=== PATIENT | female | born 1935 | race Caucasian/White ===

== ENCOUNTER 2016-07-12 09:11 | Day surgery (SDC) | payer MEDICARE ==
[2016-07-02 12:28] VITALS: BMI 28.3
[~2016-07-12 09:11] MED LIST: ALPRAZolam 0.25 MG TAB PO PRN; ASPIRIN 325 MG TAB PO ONE; SODIUM CHLORIDE 0.9% 1,000 ML in EMPTY BAG 1 BAG IV ONE
[2016-07-12 10:09] LABS: Glucose,Whole Blood 108 mg/dL (75-99)
[2016-07-12 10:10] VITALS: RESP 18
[2016-07-12] MEDS ORDERED: MIDAZOLAM 2 MG/2 ML VIAL IV ONE (11:00)
[2016-07-12] MEDS ORDERED: LIDOCAINE 2% INJ 20 MG/ML SQ ONE (11:04)
[2016-07-12] MEDS ORDERED: HEPARIN SODIUM 1,000 UNIT/ML VIAL IV ONE (11:06)
[2016-07-12] MEDS: VERAPAMIL SYRINGE (5 MG/10 ML) INTRAARTER ONE ×2 (11:06→11:38)
[2016-07-12] MEDS ORDERED: IODIXANOL 320 MG/ML 100 ML INTRAARTER ONE (11:38)
[2016-07-12] MEDS ORDERED: RX INFO: IV CONTRAST WAS GIVEN 1 EACH MISC MISCELLANE PRN (11:46)
[2016-07-12] MEDS ORDERED: SODIUM CHLORIDE 0.9% 1,000 ML IV SCH ×2 (12:00→13:53)
--- NOTE | 2016-07-12 14:49 | IR ---
EXAMINATION TYPE: IR angio abdominal w runoff DATE OF EXAM: 07/12/2016 12:02 PM COMPARISON: NONE HISTORY: Pain in legs Fluoroscopy support supplied to the referring clinician. See dictated report from cardiology, 8.3 mi brian fluoroscopy time, 549 intraoperative C-arm images
[2016-07-12 17:15] VITALS: BP 149/71; PULSE 70; TEMP 97.4
--- NOTE | 2016-07-12 21:23 | PCN ---
DATE OF PROCEDURE: 07/12/2015 Performing physician: Rick Zepeda lending advisor. PROCEDURE PERFORMED: 1. Abdominal aortogram. 2. Bilateral lower extremity runoff. INDICATION: This is a pleasant 81-year-old female patient who was known to have severe PAD with prior aortobifem surgery who was experiencing severe bilateral lower extremity discomfort consistent with intermittent claudication. Approach: Right radial artery. COMPLICATIONS: None. Level of sedation: Moderate. PROCEDURE DESCRIPTION: After obtaining informed consent, the patient was brought to the cardiac outside laborer. Right radial artery was cannulated using micropuncture technique. The micropuncture wire passed easily, then I placed 6 [place] sheath in the right radial artery. Subsequently I gave the patient 2 mg of verapamil IA and 3000 units of heparin IV. Then I did an abdominal aortogram and bilateral lower extremity runoff using 5 [place] pigtail catheter which was initially placed at the level of the renal arteries and then it was advanced above the bifurcation of the aorta into right and left common iliac arteries. The procedure was completed without any complication. SELECTIVE PERIPHERAL ANGIOGRAM: 1. The abdominal aorta is calcified with mild disease only. 2. Iliac system: There is what seems to be aortobifem bypass, which seems to be patent. 3. The femoral artery: The right and left common femoral artery seems to be angiographically normal. 4. SFA: The right SFA is heavy calcified with multiple area of critical disease. The left SFA is occluded from the ostium and reconstitutes by the popliteal. 5. Popliteal: The right popliteal has a critical lesion and the left popliteal appeared to have severe disease as well. 6. Below the knee: There are 2 vessel runoff below the knee on right side with anterior tibial and peroneal and 3 vessel runoff on the left side. POSTPROCEDURE MANAGEMENT: 1. I would maximize medical treatment at this point of time. 2. Follow up with the patient.
--- NOTE | 2016-07-12 21:46 | CC ---
DATE OF SERVICE: 07/12/2016 PERFORMING PHYSICIAN: Rick Zepeda M.D., medical nurse. PROCEDURE PERFORMED: Selective right and left coronary angiogram. INDICATION: This is a pleasant 81-year-old female patient who is known to have diabetes, hypertension, dyslipidemia and PAD with prior aortobifem. She was experiencing chest discomfort and underwent a stress test which showed anterior ischemia. She was brought in today to undergo a heart catheterization. APPROACH: Right radial artery. COMPLICATIONS: None. LEVEL OF SEDATION: Moderate. PROCEDURE DESCRIPTION: After obtaining informed consent, the patient was brought to the cardiac pit laborer. Right radial artery was cannulated using micropuncture technique. The micropuncture wire passed easily. Then I placed a 6 [place] sheath in the right radial artery. Subsequently I did selective right and left coronary angiogram using JR4 and JL3.5 catheters. The procedure was completed without any complication. SELECTIVE CORONARY ANGIOGRAM: 1. Right coronary artery is a large-caliber vessel. It is a dominant vessel. The proximal RCA appeared to have mild disease only. The mid RCA has intermediate disease in the range of 50%. The RCA distally appeared to be angiographically normal and bifurcates into PDA and PLV branches. The PDA branch has proximal disease in the range of 70% and the PLV branch appeared to be angiographically normal. 2. The left main is a large-caliber vessel ( ) calcified, with mild disease distally that appeared to be in the range of 20% to 30%. It bifurcates into the left circumflex and left anterior descending artery. 3. The left circumflex is a large-caliber vessel. It is a non-dominant vessel. The proximal left circumflex appeared to be tortuous with mild disease only. The mid left circumflex appeared to have severe disease in the range of 70% to 80%. This is by the bifurcation of the first OM branch, which is a large-caliber vessel with mild disease only. The left circumflex in the very distal portion appeared to be angiographically normal. 4. Left anterior descending artery. The proximal LAD just distal to the bifurcation of the first diagonal branch appeared to have a lesion in the range of 70%. The first diagonal branch appeared to be tortuous with intermediate disease in the proximal portion. The mid LAD and distal LAD appeared to be calcified with mild disease only. CONCLUSION: 1. Heavily calcified right and left coronary system. 2. Severe disease involving the PDA branch of the RCA. 3. Severe disease involving the non-dominant left circumflex in the mid portion. 4. Severe disease involving the proximal left anterior descending artery. PLAN: In view of the ischemic stress test in the anterior wall, I recommend proceeding with PCI of the LAD associated with atherectomy of the LAD as well.
== END 2016-07-12 17:50 | disposition home or self-care (01) ==
LOC: CATHCVL 09:11
PROVIDERS: ATTEND Internal Medicine Interventional Cardiology
DX: I73.9 Peripheral vascular disease, unspecified (principal); I70.0 Atherosclerosis of aorta; I70.211 Atherosclerosis of native arteries of extremities with intermittent claudication, right leg; I77.9 Disorder of arteries and arterioles, unspecified; I10 Essential (primary) hypertension; E78.5 Hyperlipidemia, unspecified; J44.9 Chronic obstructive pulmonary disease, unspecified; E11.9 Type 2 diabetes mellitus without complications; I25.110 Atherosclerotic heart disease of native coronary artery with unstable angina pectoris; E78.00 Pure hypercholesterolemia, unspecified; Z79.82 Long term (current) use of aspirin; Z79.4 Long term (current) use of insulin; Z79.899 Other long term (current) drug therapy; Z91.040 Latex allergy status; Z88.0 Allergy status to penicillin; Z91.048 Other nonmedicinal substance allergy status; Z87.891 Personal history of nicotine dependence
CPT/HCPCS: 93454; 75625; 75716; C1769 ×3; J2001; J2250; Q9967; J1644

== ENCOUNTER 2018-05-16 11:32 | Inpatient (IN) | payer MEDICARE ==
[2018-05-16] MEDS ORDERED: LORazepam 2 MG/ML INJ IV STA ×2 (12:01→16:10)
[2018-05-16] MEDS ORDERED: hydrALAZINE HCL 20 MG/ML 1 ML VIAL IVP STA (12:02)
[2018-05-16] MEDS ORDERED: ENALAPRILAT 1.25 MG/ML 1 ML VIAL IVP STA (12:02)
--- NOTE | 2018-05-16 12:06 | ED ---
General Adult HPI - General Stated complaint: High BP Time Seen by Provider: 05/16/18 11:40 Source: RN notes reviewed - History of Present Illness Initial comments: This is an 83-year-old female who presents emergency department after having gone to Dr. Olivia's office. Patient was at Dr. Olivia office and was noted to have high blood pressure so they sent her in the emergency department. Patient states over the last few days she has not been feeling well and she has generalized diffuse pain everywhere. states she has rheumatoid arthritis and she often is in a lot of pain. Patient denies any new specific pain today. Patient denies any chest pain difficulty breathing shortness of breath per patient denies any headache patient denies numbness weakness. Patient denies any recent fever chills or cough. Patient denies any calf pain or leg swelling. Patient denies any abdominal pain patient denies nausea vomiting diarrhea. Patient's states the patient keeps saying she thinks she's going to . Patient denies any recent injury or trauma. - Related Data Home Medications Medication Instructions Recorded Confirmed Aspirin [Adult Low Dose Aspirin EC] 81 mg PO DAILY 07/02/16 05/16/18 Cholecalciferol [Vitamin D3] 2,000 unit PO DAILY 07/02/16 05/16/18 DULoxetine HCL [Cymbalta] 60 mg PO DAILY 07/02/16 05/16/18 Ferrous Sulfate [Iron (65 MG 325 mg PO DAILY 07/02/16 05/16/18 Elemental)] INSULIN LISPRO (humaLOG) [humaLOG] See Protocol SQ DIRECTED 07/02/16 05/16/18 Insulin Detemir [Levemir] 30 unit SQ HS 07/02/16 05/16/18 Levothyroxine Sodium [Synthroid] 150 mcg PO DAILY 07/02/16 05/16/18 Metoprolol Tartrate [Lopressor] 50 mg PO BID 07/02/16 05/16/18 Omeprazole 20 mg PO DAILY 07/02/16 05/16/18 Pregabalin [Lyrica] 75 mg PO DAILY 07/02/16 05/16/18 Atorvastatin [Lipitor] 20 mg PO DAILY 03/17/18 05/16/18 Cyanocobalamin (Vitamin B-12) 1,000 mcg PO DAILY 05/16/18 05/16/18 [Vitamin B-12] Etanercept [Enbrel] 50 mg SQ Q7DAYS 05/16/18 05/16/18 FLUoxetine HCL [PROzac] 10 mg PO DAILY 05/16/18 05/16/18 FLUoxetine HCL [PROzac] 20 mg PO DAILY 05/16/18 05/16/18 Fluticasone Nasal [place] [Flonase 2 spr EA NOSTRIL DAILY 05/16/18 05/16/18 Nasal [place]] Furosemide [Lasix] 20 mg PO DAILY 05/16/18 05/16/18 Isosorbide Mononitrate ER [Imdur] 30 mg PO DAILY 05/16/18 05/16/18 Lisinopril [Zestril] 10 mg PO DAILY 05/16/18 05/16/18 Tadalafil [Cialis] 10 mg PO DAILY 05/16/18 05/16/18 amLODIPine [Norvasc] 5 mg PO BID 05/16/18 05/16/18 cycloSPORINE [Restasis] 1 drop BOTH EYES HS 05/16/18 05/16/18 hydrALAZINE HCL [Apresoline] 50 mg PO DAILY 05/16/18 05/16/18 rOPINIRole HCL [Requip] 0.25 mg PO DAILY 05/16/18 05/16/18 Allergies Allergy/AdvReac Type Severity Reaction Status Date / Time adhesive tape Allergy Rash/Hives Verified 05/16/18 12:25 Penicillins Allergy Swelling Verified 05/16/18 12:25 Review of Systems ROS Statement: Those systems with pertinent positive or pertinent negative responses have been documented in the HPI. ROS Other: All systems not noted in ROS Statement are negative. Past Medical History Past Medical History: Cancer, Diabetes Mellitus, GERD/Reflux, Hyperlipidemia, Hypertension, Memory Impairment, Rheumatoid Arthritis (RA), Thyroid Disorder Additional Past Medical History / Comment(s): States age related memory impairment. 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 Hx right breast cancer, aortic aneurysm. History of Any Multi-Drug Resistant Organisms: None Reported Past Surgical History: Appendectomy, Back Surgery, Breast Surgery, Tubal Ligation Additional Past Surgical History / Comment(s): Surgery for arortic aneurysm, surgery on toes of bilateral feet, ablation done on back X2, had uvula removed. Past Anesthesia/Blood Transfusion Reactions: No Reported Reaction Smoking Status: Former smoker - Past Family History Sister(s) Family Medical History: Cancer Additional Family Medical History / Comment(s): Aneurysm. States 3 of her sisters had cancer. Father Additional Family Medical History / Comment(s): Anerysym Mother Additional Family Medical History / Comment(s): Aneurysm Brother(s) Additional Family Medical History / Comment(s): Aneurysm General Exam - General Exam Comments Initial Comments: GENERAL: Patient is well-developed and well-nourished. Patient is nontoxic and well- hydrated and is in mild distress. ENT: Neck is soft and supple. No significant lymphadenopathy is noted. Oropharynx is clear. Moist mucous membranes. Neck has full range of motion without eliciting any pain. EYES: The sclera were anicteric and conjunctiva were pink and moist. Extraocular movements were intact and pupils were equal round and reactive to light. Eyelids were unremarkable. PULMONARY: Unlabored respirations. Good breath sounds bilaterally. No audible rales rhonchi or wheezing was noted. CARDIOVASCULAR: There is a regular rate and rhythm without any murmurs gallops or rubs. ABDOMEN: Soft and nontender with normal bowel sounds. SKIN: Skin is clear with no lesions or rashes and otherwise unremarkable. NEUROLOGIC: Patient is alert and oriented x3. Cranial nerves II through XII are grossly intact. Motor and sensory are also intact. Normal speech, volume and content. Symmetrical smile. MUSCULOSKELETAL: Normal extremities with adequate strength and full range of motion. No lower extremity swelling or edema. No calf tenderness. LYMPHATICS: No significant lymphadenopathy is noted PSYCHIATRIC: Patient is very anxious Course Vital Signs 05/16/18 05/16/18 05/16/18 12:04 12:50 13:40 Temperature 98.2 F Pulse Rate 68 59 L 61 Respiratory 28 H 18 Rate Blood Pressure 209/91 207/84 144/60 O2 Sat by Pulse 99 99 Oximetry Medical Decision Making - Medical Decision Making EKG shows sinus bradycardia 59 bpm TN interval 250 QRS is 74 Q-T intervals 436 QTC is 431. Patient's EKG shows no ST segment elevation or depression or T wave abnormalities are noted. Patient had no complaints on arrival patient continues to have no complaints except that her blood pressure was elevated. I spoke with Dr. Olivia he was still concerned about the patient could she appear to have abdominal pain in his office even though she is pain-free at this time he wanted to keep her overnight and so I admitted her for 23 hour observation - Lab Data Result diagrams: 05/16/18 12:40 05/16/18 12:40 Lab Results 05/16/18 05/16/18 05/16/18 Range/Units 12:40 12:40 12:40 WBC 9.6 (3.8-10.6) k/uL RBC 4.72 (3.80-5.40) m/uL Hgb 14.3 (11.4-16.0) gm/dL Hct 43.9 (34.0-46.0) % MCV 93.0 (80.0-100.0) fL MCH 30.2 (25.0-35.0) pg MCHC 32.5 (31.0-37.0) g/dL RDW 15.7 H (11.5-15.5) % Plt Count 165 (150-450) k/uL Neutrophils % 68 % Lymphocytes % 22 % Monocytes % 5 % Eosinophils % 3 % Basophils % 1 % Neutrophils # 6.5 (1.3-7.7) k/uL Lymphocytes # 2.1 (1.0-4.8) k/uL Monocytes # 0.5 (0-1.0) k/uL Eosinophils # 0.3 (0-0.7) k/uL Basophils # 0.1 (0-0.2) k/uL PT (9.0-12.0) sec INR (<1.2) APTT (22.0-30.0) sec Sodium 140 (137-145) mmol/L Potassium 4.1 (3.5-5.1) mmol/L Chloride 101 (98-107) mmol/L Carbon Dioxide 31 H (22-30) mmol/L Anion Gap 8 mmol/L BUN 23 H (7-17) mg/dL Creatinine 1.02 (0.52-1.04) mg/dL Est GFR (CKD-EPI)AfAm 59 (>60 ml/min/1.73 sqM) Est GFR (CKD-EPI)NonAf 51 (>60 ml/min/1.73 sqM) Glucose 120 H (74-99) mg/dL Calcium 9.6 (8.4-10.2) mg/dL Magnesium 2.3 (1.6-2.3) mg/dL Total Bilirubin 1.1 (0.2-1.3) mg/dL AST 28 (14-36) U/L ALT 29 (9-52) U/L Alkaline Phosphatase 88 (38-126) U/L Total Creatine Kinase 38 (30-135) U/L CK-MB (CK-2) 1.1 (0.0-2.4) ng/mL CK-MB (CK-2) Rel Index 2.9 Troponin I <0.012 (0.000-0.034) ng/mL Total Protein 7.4 (6.3-8.2) g/dL Albumin 4.2 (3.5-5.0) g/dL 05/16/18 Range/Units 12:40 WBC (3.8-10.6) k/uL RBC (3.80-5.40) m/uL Hgb (11.4-16.0) gm/dL Hct (34.0-46.0) % MCV (80.0-100.0) fL MCH (25.0-35.0) pg MCHC (31.0-37.0) g/dL RDW (11.5-15.5) % Plt Count (150-450) k/uL Neutrophils % % Lymphocytes % % Monocytes % % Eosinophils % % Basophils % % Neutrophils # (1.3-7.7) k/uL Lymphocytes # (1.0-4.8) k/uL Monocytes # (0-1.0) k/uL Eosinophils # (0-0.7) k/uL Basophils # (0-0.2) k/uL PT 10.3 (9.0-12.0) sec INR 1.1 (<1.2) APTT 21.1 L (22.0-30.0) sec Sodium (137-145) mmol/L Potassium (3.5-5.1) mmol/L Chloride (98-107) mmol/L Carbon Dioxide (22-30) mmol/L Anion Gap mmol/L BUN (7-17) mg/dL Creatinine (0.52-1.04) mg/dL Est GFR (CKD-EPI)AfAm (>60 ml/min/1.73 sqM) Est GFR (CKD-EPI)NonAf (>60 ml/min/1.73 sqM) Glucose (74-99) mg/dL Calcium (8.4-10.2) mg/dL Magnesium (1.6-2.3) mg/dL Total Bilirubin (0.2-1.3) mg/dL AST (14-36) U/L ALT (9-52) U/L Alkaline Phosphatase (38-126) U/L Total Creatine Kinase (30-135) U/L CK-MB (CK-2) (0.0-2.4) ng/mL CK-MB (CK-2) Rel Index Troponin I (0.000-0.034) ng/mL Total Protein (6.3-8.2) g/dL Albumin (3.5-5.0) g/dL Disposition Clinical Impression: Hypertension Disposition: ADMITTED IP TO THIS [facility] Referrals: Sherwin Renee MD [STAFF PHYSICIAN] - 1-2 days Time of Disposition: 14:23
[2018-05-16 13:08] LABS: Basophils # (A) 0.1 k/uL (0-0.2); Basophils % (A) 1 %; Eosinophils # (A) 0.3 k/uL (0-0.7); Eosinophils % (A) 3 %; HCT 43.9 % (34.0-46.0); HGB 14.3 gm/dL (11.4-16.0); Lymphocytes # (A) 2.1 k/uL (1.0-4.8); Lymphocytes % (A) 22 %; MCH 30.2 pg (25.0-35.0); MCHC 32.5 g/dL (31.0-37.0); Mean Platelet Volume 7.1; Monocytes # (A) 0.5 k/uL (0-1.0); Monocytes % (A) 5 %; Neutrophils # (A) 6.5 k/uL (1.3-7.7); Neutrophils % (A) 68 %; Platelet Count 165 k/uL (150-450); RBC 4.72 m/uL (3.80-5.40); RDW 15.7 % (11.5-15.5); WBC 9.6 k/uL (3.8-10.6)
[2018-05-16 13:20] LABS: Albumin 4.2 g/dL (3.5-5.0); Calcium 9.6 mg/dL (8.4-10.2); Magnesium 2.3 mg/dL (1.6-2.3); Potassium 4.1 mmol/L (3.5-5.1); Total Bilirubin 1.1 mg/dL (0.2-1.3); Total Protein 7.4 g/dL (6.3-8.2)
[2018-05-16 13:26] LABS: Creatine Kinase 38 U/L (30-135)
[2018-05-16 13:32] LABS: INR 1.1 (<1.2); Partial Thromboplastin Time 21.1 sec (22.0-30.0); Prothrombin Time 10.3 sec (9.0-12.0)
--- NOTE | 2018-05-16 13:34 | XR ---
EXAMINATION TYPE: XR chest 2V DATE OF EXAM: 05/16/2018 COMPARISON: Prior chest x-ray 08/31/2013, 08/18/2016 HISTORY: Chest pain TECHNIQUE: Frontal and lateral views of the chest are obtained. FINDINGS: Patient is rotated and there are overlying cardiac leads. There is no focal air space opaci ty, pleural effusion, or pneumothorax seen. Linear increased density in the left midlung may represen t atelectasis or scar The cardiac silhouette size is stable. Postop changes noted in the abdomen, [place] gical clips overlie the right chest. The aorta is dense. There is a compression deformity noted at th e lower thoracic spine level which is likely present on prior exam. Bone mineralization is reduced. IMPRESSION: No acute cardiopulmonary process.
[2018-05-16 13:39] LABS: Creatine Kinase MB 1.1 ng/mL (0.0-2.4); Troponin I <0.012 ng/mL (0.000-0.034)
[2018-05-16] MEDS ORDERED: SODIUM CHLORIDE 0.9% 1,000 ML IV ONE (14:23)
[2018-05-16] MEDS ORDERED: NON-FORMULARY DRUG (Insulin Lispro (Humalog) 0 UNITS) SQ SCH (17:45)
--- NOTE | 2018-05-16 19:07 | CT ---
EXAMINATION TYPE: CT abdomen pelvis wo con DATE OF EXAM: 05/16/2018 COMPARISON: None HISTORY: Severe ABDOMINAL PAIN AND DISTENTION CT DLP: 449.1 mGycm Automated exposure control for dose reduction was used. TECHNIQUE: Helical acquisition of images was performed from the lung bases through the pelvis. FINDINGS: VISUALIZED LOWER CHEST: No definite acute findings. However, the proximal third of the stomach is int rathoracic in position. LIVER/GB: No significant abnormality is appreciated. PANCREAS: No significant abnormality is seen. SPLEEN: No significant abnormality is seen. ADRENALS: No significant abnormality is seen. KIDNEYS: No significant abnormality is seen. PERITONEAL CAVITY: No pneumoperitoneum or fluid. RETROPERITONEAL ADENOPATHY: None visualized REPRODUCTIVE ORGANS: No significant abnormality is seen URINARY BLADDER: Moderately distended, etiology unclear. PELVIC ADENOPATHY: None visualized. OSSEOUS STRUCTURES: No significant abnormality is seen. BOWEL: No significant abnormality is seen. OTHER: Prominent atherosclerotic calcification volume seen throughout the arterial anatomy, including the coronary arteries. No definite acute findings, as seen. IMPRESSION: NO ACUTE PROCESS. HOWEVER, MARKED ATHEROSCLEROTIC CHANGES AND MODERATE URINARY BLADDER DISTENTION NOTED.
[2018-05-16] MEDS ORDERED: INSULIN DETEMIR 100 UNIT/ML 10 ML VIAL SQ SCH (21:00)
--- NOTE | 2018-05-16 21:36 | P.HPIM ---
History of Present Illness H&P Date: 05/16/18 H&P dictated on phone#[phone] date : 05/16/18 DX :hypertensive crises syst. BP 207 in ER Past Medical History Past Medical History: Cancer, Diabetes Mellitus, GERD/Reflux, Hyperlipidemia, Hypertension, Memory Impairment, Rheumatoid Arthritis (RA), Thyroid Disorder Additional Past Medical History / Comment(s): States age related memory impairment. 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 Hx right breast cancer, aortic aneurysm. History of Any Multi-Drug Resistant Organisms: None Reported Past Surgical History: Appendectomy, Back Surgery, Breast Surgery, Tubal Ligation Additional Past Surgical History / Comment(s): Surgery for arortic aneurysm, surgery on toes of bilateral feet, ablation done on back X2, had uvula removed. Past Anesthesia/Blood Transfusion Reactions: No Reported Reaction Smoking Status: Former smoker - Past Family History Sister(s) Family Medical History: Cancer Additional Family Medical History / Comment(s): Aneurysm. States 3 of her sisters had cancer. Father Additional Family Medical History / Comment(s): Anerysym Mother Additional Family Medical History / Comment(s): Aneurysm Brother(s) Additional Family Medical History / Comment(s): Aneurysm Medications and Allergies Home Medications Medication Instructions Recorded Confirmed Type Aspirin [Adult Low Dose Aspirin EC] 81 mg PO DAILY 07/02/16 05/16/18 History Cholecalciferol [Vitamin D3] 2,000 unit PO DAILY 07/02/16 05/16/18 History DULoxetine HCL [Cymbalta] 60 mg PO DAILY 07/02/16 05/16/18 History Ferrous Sulfate [Iron (65 MG 325 mg PO DAILY 07/02/16 05/16/18 History Elemental)] INSULIN LISPRO (humaLOG) [humaLOG] See Protocol SQ DIRECTED 07/02/16 History Insulin Detemir [Levemir] 30 unit SQ HS 07/02/16 05/16/18 History Levothyroxine Sodium [Synthroid] 150 mcg PO DAILY 07/02/16 05/16/18 History Metoprolol Tartrate [Lopressor] 50 mg PO BID 07/02/16 05/16/18 History Omeprazole 20 mg PO DAILY 07/02/16 05/16/18 History Pregabalin [Lyrica] 75 mg PO DAILY 07/02/16 05/16/18 History Atorvastatin [Lipitor] 20 mg PO DAILY 03/17/18 05/16/18 History Cyanocobalamin (Vitamin B-12) 1,000 mcg PO DAILY 05/16/18 05/16/18 History [Vitamin B-12] Etanercept [Enbrel] 50 mg SQ Q7DAYS 05/16/18 05/16/18 History FLUoxetine HCL [PROzac] 10 mg PO DAILY 05/16/18 05/16/18 History FLUoxetine HCL [PROzac] 20 mg PO DAILY 05/16/18 05/16/18 History Fluticasone Nasal [place] [Flonase 2 spr EA NOSTRIL DAILY 05/16/18 05/16/18 History Nasal [place]] Furosemide [Lasix] 20 mg PO DAILY 05/16/18 05/16/18 History Isosorbide Mononitrate ER [Imdur] 30 mg PO DAILY 05/16/18 05/16/18 History Lisinopril [Zestril] 10 mg PO DAILY 05/16/18 05/16/18 History Tadalafil [Cialis] 10 mg PO DAILY 05/16/18 05/16/18 History amLODIPine [Norvasc] 5 mg PO BID 05/16/18 05/16/18 History cycloSPORINE [Restasis] 1 drop BOTH EYES HS 05/16/18 05/16/18 History hydrALAZINE HCL [Apresoline] 50 mg PO DAILY 05/16/18 05/16/18 History rOPINIRole HCL [Requip] 0.25 mg PO DAILY 05/16/18 05/16/18 History Allergies Allergy/AdvReac Type Severity Reaction Status Date / Time adhesive tape Allergy Rash/Hives Verified 05/16/18 12:25 Penicillins Allergy Swelling Verified 05/16/18 12:25 Physical Exam Vitals: Vital Signs Temp Pulse Resp BP Pulse Ox 05/16/18 19:00 64 20 164/61 99 05/16/18 18:00 63 18 138/48 100 05/16/18 17:00 73 18 177/66 100 05/16/18 16:00 69 18 141/65 100 05/16/18 15:30 68 18 141/65 100 05/16/18 15:00 70 18 147/60 100 05/16/18 14:08 67 18 165/63 100 05/16/18 13:40 61 18 144/60 99 05/16/18 12:50 59 L 207/84 05/16/18 12:04 98.2 F 68 28 H 209/91 99 Intake and Output 05/16/18 05/16/18 05/16/18 06:59 14:59 22:59 Other: Weight 61.235 kg Results CBC & Chem 7: 05/16/18 12:40 05/16/18 12:40 Labs: Abnormal Lab Results - Last 24 Hours (Table) 05/16/18 05/16/18 05/16/18 Range/Units 12:40 12:40 12:40 RDW 15.7 H (11.5-15.5) % APTT 21.1 L (22.0-30.0) sec Carbon Dioxide 31 H (22-30) mmol/L BUN 23 H (7-17) mg/dL Glucose 120 H (74-99) mg/dL
[2018-05-16] MEDS: amLODIPine 5 MG TAB PO SCH (22:13)
[2018-05-16] MEDS: cycloSPORINE 0.05% OPHTH 0.4 ML DROPERETTE BOTH EYES SCH (22:13)
[2018-05-16] MEDS: METOPROLOL TARTRATE 50 MG TAB PO SCH (22:22)
[2018-05-16 22:28] LABS: Glucose,Whole Blood 131 mg/dL (75-99)
--- NOTE | 2018-05-16 22:40 | HP ---
HISTORY AND PHYSICAL She is in room number 398 bed one on hold for the admission when bed is available. NEW DATA: She is a 4 foot 11 inches height and weight 61.235 kg. BSA 1.56 m2, BMI 27.3 kg/m2. ALLERGY IS ADHESIVE TAPE, PENICILLIN. The patient presented in the office first with the severe uncomfortable feeling mainly in the lower chest, abdominal area, and she has abdominal discomfort. Meanwhile she could not move and feeling that she has her blood pressure was increasing and subsequently found the blood pressure 180 and subsequently 188 and 209 systolic with the acute crisis and severe normal body aches and the patient transferred by ambulance with the acute hypertensive crisis to the emergency room at [facility]. I did speak, prior to the transfer with Dr. Le, the ER physician, and to take care of the patient until we find out the problem. The patient subsequently arrived to the emergency room and she was seen by Dr. Le and they found her blood pressure is high as well with the blood pressure 209 and 200 and we started her on medication IM IV as well as Ativan, and she was severely anxious. The patient has a long-standing history of rheumatoid arthritis and she had also long- standing history of coronary atherosclerosis and arteriosclerosis and she has history of severe peripheral vascular disease and as well as has abdominal biaorto bifem by the vascular surgeon in [facility]. The patient past history she has been within the last 2 days her stated that she could not sit still. She could not wake up and she was very sleepy and lethargic and could not see the reason and he brought her to the office and in the office, the patient was severely achy and could not move. She is laying flat and could not move her body or stand up or walk, and at that time, we called the ambulance from the office to be in the emergency room with need for further investigation and controlling the blood pressure with medication probably IV, which is not available in the office. The EMS tried to check her blood pressure was very high and unrecorded by them. Her current list of medication: She was on aspirin, cholecalciferol, vitamin D, and Duloxetine, Cymbalta, Ferrous sulfate, as well as levothyroxine, metoprolol tartrate, omeprazole, pregabalin, and atorvastatin, vitamin B12, as well as Enbrel 50 mg every 7 days. Fluoxetine 10 mg as well as which is Prozac as well as Prozac again 20 mg. And fluticasone spray nasal spray and Lasix 20 mg, isosorbide and Imdur mononitrate 30 mg once daily. Lisinopril 10 mg one daily, deal with the underlying severe pulmonary hypertension and that was 10 mg daily and amlodipine, Norvasc 5 mg b.i.d. and cyclosporine and then Restasis 1 drop each eye for dry eye associated with rheumatoid arthritis and she is also on hydralazine 50 mg once a day and Robinul 0.25 mg once a day. HER ALLERGY IS PENICILLIN AND ADHESIVE TAPE. She had past surgical history of bifem bypass by the vascular surgeon. She has also history of seeing Cardiology, Dr. Zepeda, as well as history of myocardial infarction. She had history of rheumatoid arthritis and osteoarthritis and she had history of diabetes mellitus, hypothyroidism, history of hypertension which has been controlled until this event and which was unexpected and she had neuropathy of the lower extremities as well. She has underlying depression and anxiety and she is on insulin for diabetes mellitus as well as mentioned above hypothyroidism. On reviewing of the system: Neuropsychiatry, she is lethargic. She could not really communicate or answer questions with the significant change of mental status and tired, fatigued. She has a history of depression and with the large amount of SSRI. No fever. No chills. Cardiovascular: No chest pain or palpitations and she had severe high blood pressure started probably 2 days ago, however, was not discovered until we saw her in the office and transferred her to the hospital. Gastrointestinal: She had abdominal pain and with the moderate pressure and palpation was significantly symptomatic and this was in 4 quadrants. On the : Questionable symptoms. Musculoskeletal: She could not even stand up or sit or move and she needs 2 people to tend to put her on the ambulance to carry her for the emergency room. Neuropsychiatry is no history of strokes. PAST MEDICAL HISTORY: She had history of hyperlipidemia and GERD disease as well as mentioned GERD disease, thyroid disorder. She had a right breast cancer and was removed with lumpectomy and radiation therapy in the past. Had history of also surgical history appendectomy, back surgery, breast surgery, tubal ligation, and history of aortic aneurysm surgery and surgery on the toes and bilateral on the feet and she had 6 ablation done on her back x2. She had also a history of removal of the uvula secondary to obstructive lung disease. FAMILY HISTORY: She has an aneurysm and she has 3 sisters who have cancer. PHYSICAL EXAMINATION: On examination, the patient is well developed, She has generalized weakness. He appears lethargic to me as well as having generalized discomfort and pain and her vital signs is indicating that she had when she arrived to the emergency room, she was 207/84 with the mean 125, and subsequently with the medication given, she started to improve and fluctuating with 165/63 and 147 subsequently. However, during the evening hours, her blood pressure picked up again and 177/66 and that associated also with movement. On the pulse rate was 64, respiratory rate was 18 to 20, and the pulse ox was normal. In the emergency room, she had a chest x-ray and the chest x-ray was indicating that there is linear increased density in the left mid lung may represent atelectasis or scar and otherwise the compression deformity noted in the lower thoracic spine level and no acute pulmonary process. Her EKG was indicating that she had sinus rhythm with the left atrial enlargement, left anterior hypertrophy. She has as well was seen in the emergency room, evaluated and found that she has abdominal pain and started the lower chest and extended to the whole abdomen and with the abdominal pain with the underlying history abdominal aneurysm. CT scan without contrast was ordered and the report of the CT scan was indicating that proximal stomach in the intrathoracic with the severe herniation of the stomach. The gallbladder, the liver and gallbladder is no significant abnormalities. Pancreas was no significant abnormalities. The no significant abnormalities seen. Adrenals no significant abnormality. Kidneys no significant abnormality seen. Intraperitoneal cavity, no pneumonia, no with pneumoperitoneum or fluid and grade 2 retroperitoneal adenopathy, none visualized and the reproductive organs no significant abnormalities seen. The urinary bladder is moderately distended and the etiology was unclear by the CT scan and the bowel no significant abnormality of the osseous structure. No significant abnormality and pelvic adenopathy not visualized and the conclusion the said that prominent atherosclerotic calcification volume seen through out the arterial anatomy including the coronary arteries. No definite acute finding as seen. In the impression they said "no acute process". However, she said the said market atherosclerotic changes and moderate bladder moderate urinary bladder distention noted. Subsequently, we ordered a bladder scan to see if the distention of the bladder causing the pressure and associated with increased blood pressure. On examination at the time patient seen, evaluated in model #8 in the ER at [facility] cleared him for the [facility]. Patient seen earlier by Dr. Le who talked to me at the time. Her HEENT the head was normocephalic, atraumatic. Pupils equal, reactive. Conjunctivae was pink. Sclerae was nonicteric. However, she had edema of the eyeball and the eye lid. It is unclear if he has been given fluid, extensive fluid or not, but at this time we cut her fluid down to 20 mL an hour. The neck was supple. No JVD. No thyromegaly. No lymphadenopathy and trachea midline. The chest was clear to auscultation and percussion and no wheezes, no rhonchi. The heart was regular sinus rhythm. The PMI in the 5th outside midclavicular line with normal S1, S2. She had history of right breast lumpectomy with radiation therapy many years ago and her abdomen and ribs is tender bilaterally and as well as the abdomen in the 4 quadrants and no rebound. Positive bowel sounds. The extremities and she had chronic stasis dermatitis with brownish of discoloration and the edema was not present. Pulses was intact bilaterally. Neurological examination: The patient is lethargic and unable to give history. Her at bedside. Mr. Collazo and he is able to help with the history. Assessment: History of depression, but never had these symptoms before. IMPRESSION: 1. Acute hypertensive crisis and transferred from the office to the emergency room and subsequently blood pressure under control with IV medications. 2. Underlying the lethargy with the possibility of the associated with the multiple SSRI and she had no fever. 3. Underlying urinary tract infection and stability and urinary bladder retention. 4. Underlying exacerbation of the rheumatoid arthritis with generalized ache and pain. 5. Hypothyroidism. 6. Severe atherosclerotic disease of the coronary vessels and generalized. She had status post history of aortic aneurysm and bifem and which was operated upon and still had peripheral vascular disease in the left lower extremities with the decreased pulses in comparison with the right lower extremity. The patient currently will be admitted for observation and management as well as starting the bladder scan and to see if she had retention of the urine associated with her current symptoms. 7. See and observe the patient as well as continue her current medication and watch for the fever. Medication reconciliation done and the patient adjusted her and I did adjust her medication and some of the medication was withheld and I did discuss it with her with her in the skilled nursing at this time. 8. History of underlying compression fracture of the lower thoracic by the x-ray of the lower thoracic spine compression fracture or deformity off the aide is undetermined at this time. MMODL / IJN: [id number] /
[2018-05-17 05:55] LABS: Glucose,Whole Blood 75 mg/dL (75-99)
[2018-05-17] MEDS: LEVOTHYROXINE 75 MCG TAB PO SCH (05:59)
[2018-05-17] MEDS: PANTOPRAZOLE 40 MG TABLET PO SCH (05:59)
[2018-05-17] MEDS: SODIUM CHLORIDE 0.9% 1,000 ML IV SCH ×2 (05:59→14:59)
[2018-05-17 06:58] LABS: Basophils # (A) 0.1 k/uL (0-0.2); Basophils % (A) 1 %; Eosinophils # (A) 0.2 k/uL (0-0.7); Eosinophils % (A) 3 %; HGB 11.5 gm/dL (11.4-16.0); Lymphocytes # (A) 2.2 k/uL (1.0-4.8); Lymphocytes % (A) 26 %; Mean Platelet Volume 7.5; Monocytes # (A) 0.4 k/uL (0-1.0); Monocytes % (A) 5 %; Neutrophils # (A) 5.4 k/uL (1.3-7.7); Neutrophils % (A) 64 %; Platelet Count 146 k/uL (150-450); RBC 3.72 m/uL (3.80-5.40); RDW 15.7 % (11.5-15.5); WBC 8.3 k/uL (3.8-10.6)
[2018-05-17 07:15] LABS: Calcium 8.9 mg/dL (8.4-10.2); Magnesium 2.4 mg/dL (1.6-2.3)
[2018-05-17] MEDS: ASPIRIN 81 MG PO SCH (08:16)
[2018-05-17] MEDS: ISOSORBIDE MONONITRATE ER 30 MG TAB.ER.24H PO SCH (08:16)
[2018-05-17] MEDS: FUROSEMIDE 20 MG TAB PO SCH (08:16)
[2018-05-17] MEDS: amLODIPine 5 MG TAB PO SCH (08:17)
[2018-05-17] MEDS: hydrALAZINE HCL 50 MG TAB PO SCH (08:17)
[2018-05-17] MEDS: ATORVASTATIN 20 MG TAB PO SCH (08:17)
[2018-05-17] MEDS: CYANOCOBALAMIN 500 MCG TAB PO SCH (08:18)
[2018-05-17] MEDS: CHOLECALCIFEROL 1,000 UNIT TAB PO SCH (08:18)
[2018-05-17] MEDS: DULoxetine HCL 60 MG CAPSULE.DR PO SCH (08:18)
[2018-05-17] MEDS: FERROUS SULFATE 325 MG TAB PO SCH (08:18)
[2018-05-17] MEDS: METOPROLOL TARTRATE 50 MG TAB PO SCH ×2 (08:19→20:30)
[2018-05-17] MEDS: CIALIS 10 MG PO SCH (08:19)
[2018-05-17] MEDS: LISINOPRIL 10 MG TAB PO SCH (08:19)
[2018-05-17 10:06] LABS: Glucose,Whole Blood 110 mg/dL (75-99)
[2018-05-17 11:15] LABS: Glucose,Whole Blood 145 mg/dL (75-99)
[2018-05-17 11:38] LABS: Appearance,Urine Cloudy (Clear); Bacteria,Urine Occasional /hpf; Bilirubin,Urine Negative (Negative); Blood,Urine Negative (Negative); Color,Urine Yellow; Glucose,Urine (UA) Negative (Negative); Granular Casts,Urine 7 /lpf (0); Hyaline Casts,Urine 78 /lpf (0-2); Ketones,Urine Negative (Negative); Leukocyte Esterase,Urine Large (Negative); Mucus,Urine Few /hpf; Nitrite,Urine Negative (Negative); PH, Urine 5.5 (5.0-8.0); Protein,Urine Trace (Negative); RBC,Urine 1 /hpf (0-5); Specific Gravity,Urine 1.016 (1.001-1.035); Squamous Epithelial Cell,Urine 2 /hpf (0-4); Urobilinogen,Urine <2.0 mg/dL (<2.0)
[2018-05-17] MEDS: FLUTICASONE 50MCG/SPRAY NASAL 16GM EA NOSTRIL SCH (12:08)
--- NOTE | 2018-05-17 13:50 | P.PN ---
Subjective Progress Note Date: 05/17/18 (Obtundation and lethargy possible sepsis.) Principal diagnosis: #1 hypertensive crisis with the systolic blood pressure 207 mmHg. #2 UTI with possible sepsis . #3 lethargy and otundation possible associated with metabolic encephalopathy secondary to sepsis. #4 chronic kidney disease stage III, elevated creatinine, from 1.09-1.25. #5 dehydration. #6 hypothyroidism #7 immunosuppressed with the treatment of rheumatoid arthritis. #8 rheumatoid arthritis #9 peripheral vascular disease with the associated to by from bypass by Dr. Brown vascular surgeon. #9 advanced atherosclerosis of the vascular tree with associated coronary artery atherosclerosis. #10 diabetes mellitus type 2 insulin-dependent with the hypoglycemia this morning. #11 hypertensive heart disease. #12 hyper magnesium anemia probably secondary to chronic kidney disease. This is dictation on the progress note dictated by Dr. Ne CRAIN, date of service 05/17/2018. Patient seen today and examined discussed with her and the patient. Patient is lethargic as well as obtunded she sleeping all the time and even did not wake up to eat her lunch, decided her and he is encouraging for eating. Review the laboratories: WBC 8.3 hemoglobin 11.5 and a hematocrit 35 and platelet count 146 no evidence of bleeding. Chemistry indicating that her BUN 31 creatinine 1.25 blood sugar was 73 level, we decreased her evening Levemir to 20 units only at bedtime. Magnesium was 2.4 elevated however her AST MALT, CK, troponin 1, total protein, albumin, lipase and amylase normal. Computed tomography scan of the abdomen was done during the night and the results reviewed with the patient M and the Computed tomography scan was done because of the pain in the upper abdomen was found that third of her stomach proximal stomach intrathoracic position. Otherwise no other abnormalities except prominent atherosclerotic calcification volume has been throughout the arterial anatomy including the coronary arteries. The impression moderate urinary bladder distention added as well. Her urine analysis was done this morning found to be cloudy and large leukocyte esterase was present and white cells 14 nitrite was negative and protein trace with the presence of UTI and possible sepsis with the signs of obtundation, lethargy and mental encephalopathy. On examination: Blood pressure is 123/47 with the mean arterial blood pressure 72 her oxygen saturation 128 are, her temperature 98.1 orally, pulse rate 60/m and regular sinus respiratory rate is 18/m. On examination of the patient she is sleepy lethargic difficulty to wake or stay awake she did not eat missing her meals with the underlying mild dehydration as well HEENT was negative no neurological finding pupil is equal reactive sheet, Oropharynx upper denture lower natural. Neck was supple no JVD no thyromegaly no lymphadenopathy trachea midline. The chest: Clear to auscultation and percussion no wheezes and no rhonchi's. The heart: Regular sinus rhythm compensated with the PMI in the fifth outside midclavicular line normal S1 and S2 no gallop and she had a murmur with a history of aortic stenosis. The abdomen: She had abdominal tenderness on the exam yesterday without propose we did the computed tomography scan especially she had hour total by found bypass and the found that her thyroid over her proximal stomach in the chest cavity , which still occurs with deep palpation pain.. Lower abdomen computed tomography scan stated that bladder distention but the patient able to urinate on her own questionable cystitis with the underlying UTI. Patient had stool incontinent twice which she has history of chronicity and seen by Dr. Gutierrez in the past and treated with Imodium if was loose bowel as well as cholestyramine 4 mg dissolved in water or juice twice a day. Extremities she had peripheral vascular disease, stasis dermatitis with pigmentation of the skin in the both lower extremities. She has decreased blood flow in the left lower extremities than the right has been checked by Dr. Perkins her vascular surgeon recently. No edema currently palpable pulses bilateral in the lower extremities. Assessment and plan: #1 we'll start IV fluids at 100 mL an hour. #2 Rocephin IV piggyback every 12 hours for 1 g with the underlying UTI and the mental status change with possible sepsis. #3 rehabilitation. #4 start Imodium 2 mg twice a day if the bowel is loose, #5 start cholestyramine 4 mg dissolved in juice or water twice a day. #6 continue monitor. Renal status and obtain laboratory in a.m. #7 she is underlying immune compromised with the underlying rheumatoid arthritis and we held the Enbrel at this time. #8 acute hypertensive crisis has been cleared with the normal blood pressure and blood pressure drop and adjusting medication for the blood pressure. #9 continue with healthy cardiac diet. Objective - Vital Signs Vital signs: Vital Signs Temp 98.1 F 05/17/18 08:00 Pulse 60 05/17/18 08:00 Resp 18 05/17/18 08:00 BP 123/47 05/17/18 08:00 Pulse Ox 100 05/17/18 08:00 Intake & Output 05/16/18 05/17/18 05/17/18 18:59 06:59 18:59 Intake Total 600 Output Total 200 Balance 600 -200 Weight 61.235 kg 63.5 kg Intake: Amount of Fluid Infused ( 600 ml) Output: Urine 200 Other: Voiding Method Toilet Toilet # Voids 1 1 2 # Bowel Movements 2 - Labs CBC & Chem 7: 05/17/18 06:03 05/17/18 06:03 Labs: Abnormal Lab Results - Last 24 Hours (Table) 05/16/18 05/16/18 05/16/18 Range/Units 12:40 12:40 22:07 RBC (3.80-5.40) m/uL RDW (11.5-15.5) % Plt Count (150-450) k/uL APTT 21.1 L (22.0-30.0) sec Carbon Dioxide 31 H (22-30) mmol/L BUN 23 H (7-17) mg/dL Creatinine (0.52-1.04) mg/dL Glucose 120 H (74-99) mg/dL POC Glucose (mg/dL) 131 H (75-99) mg/dL Magnesium (1.6-2.3) mg/dL Urine Appearance (Clear) Urine Protein (Negative) Ur Leukocyte Esterase (Negative) Urine WBC (0-5) /hpf Urine Bacteria (None) /hpf Hyaline Casts (0-2) /lpf Urine Mucus (None) /hpf 05/17/18 05/17/18 05/17/18 Range/Units 06:03 06:03 10:04 RBC 3.72 L (3.80-5.40) m/uL RDW 15.7 H (11.5-15.5) % Plt Count 146 L (150-450) k/uL APTT (22.0-30.0) sec Carbon Dioxide (22-30) mmol/L BUN 31 H (7-17) mg/dL Creatinine 1.25 H (0.52-1.04) mg/dL Glucose 73 L (74-99) mg/dL POC Glucose (mg/dL) 110 H (75-99) mg/dL Magnesium 2.4 H (1.6-2.3) mg/dL Urine Appearance (Clear) Urine Protein (Negative) Ur Leukocyte Esterase (Negative) Urine WBC (0-5) /hpf Urine Bacteria (None) /hpf Hyaline Casts (0-2) /lpf Urine Mucus (None) /hpf 05/17/18 05/17/18 Range/Units 10:40 11:10 RBC (3.80-5.40) m/uL RDW (11.5-15.5) % Plt Count (150-450) k/uL APTT (22.0-30.0) sec Carbon Dioxide (22-30) mmol/L BUN (7-17) mg/dL Creatinine (0.52-1.04) mg/dL Glucose (74-99) mg/dL POC Glucose (mg/dL) 145 H (75-99) mg/dL Magnesium (1.6-2.3) mg/dL Urine Appearance Cloudy H (Clear) Urine Protein Trace H (Negative) Ur Leukocyte Esterase Large H (Negative) Urine WBC 14 H (0-5) /hpf Urine Bacteria Occasional H (None) /hpf Hyaline Casts 78 H (0-2) /lpf Urine Mucus Few H (None) /hpf
[2018-05-17] MEDS ORDERED: LOPERAMIDE 2 MG CAP PO PRN (13:57)
[2018-05-17] MEDS: INSULIN ASPART 100 UNIT/ML 1 ML 10 ML VIAL SQ SCH ×3 (15:00→21:07)
[2018-05-17 16:42] LABS: Glucose,Whole Blood 105 mg/dL (75-99)
[2018-05-17] MEDS: CHOLESTYRAMINE (WITH SUGAR) 4 GM PACKET PO SCH (17:14)
[2018-05-17 20:48] LABS: Glucose,Whole Blood 153 mg/dL (75-99)
[2018-05-17] MEDS: cycloSPORINE 0.05% OPHTH 0.4 ML DROPERETTE BOTH EYES SCH (21:04)
[2018-05-17] MEDS: INSULIN DETEMIR 100 UNIT/ML 10 ML VIAL SQ SCH (21:04)
[2018-05-17 22:09] LABS: Hemoglobin A1C 6.2 % (4.0-6.0)
[2018-05-18 06:04] LABS: Glucose,Whole Blood 96 mg/dL (75-99)
[2018-05-18] MEDS: INSULIN ASPART 100 UNIT/ML 1 ML 10 ML VIAL SQ SCH ×4 (06:11→21:25)
[2018-05-18] MEDS: LEVOTHYROXINE 75 MCG TAB PO SCH (06:12)
[2018-05-18] MEDS: PANTOPRAZOLE 40 MG TABLET PO SCH (06:12)
[2018-05-18] MEDS: SODIUM CHLORIDE 0.9% 1,000 ML IV SCH ×2 (06:13→16:31)
[2018-05-18 07:49] LABS: Calcium 8.4 mg/dL (8.4-10.2)
[2018-05-18] MEDS: amLODIPine 5 MG TAB PO SCH (09:20)
[2018-05-18] MEDS: ASPIRIN 81 MG PO SCH (09:20)
[2018-05-18] MEDS: ATORVASTATIN 20 MG TAB PO SCH (09:20)
[2018-05-18] MEDS: CYANOCOBALAMIN 500 MCG TAB PO SCH (09:21)
[2018-05-18] MEDS: CHOLECALCIFEROL 1,000 UNIT TAB PO SCH (09:21)
[2018-05-18] MEDS: FERROUS SULFATE 325 MG TAB PO SCH (09:22)
[2018-05-18] MEDS: FUROSEMIDE 20 MG TAB PO SCH (09:22)
[2018-05-18] MEDS: DULoxetine HCL 60 MG CAPSULE.DR PO SCH (09:22)
[2018-05-18] MEDS: FLUTICASONE 50MCG/SPRAY NASAL 16GM EA NOSTRIL SCH (09:22)
[2018-05-18] MEDS: hydrALAZINE HCL 50 MG TAB PO SCH (09:22)
[2018-05-18] MEDS: ISOSORBIDE MONONITRATE ER 30 MG TAB.ER.24H PO SCH (09:23)
[2018-05-18] MEDS: LISINOPRIL 10 MG TAB PO SCH (09:23)
[2018-05-18] MEDS: METOPROLOL TARTRATE 50 MG TAB PO SCH ×2 (09:23→22:01)
[2018-05-18] MEDS: CIALIS 10 MG PO SCH (09:24)
[2018-05-18] MEDS: CHOLESTYRAMINE (WITH SUGAR) 4 GM PACKET PO SCH ×2 (09:24→18:56)
[2018-05-18 11:46] LABS: Glucose,Whole Blood 120 mg/dL (75-99)
[2018-05-18] MEDS: HEPARIN SODIUM,PORCINE 5,000 UNIT/ML 1 ML VIAL SQ SCH ×2 (12:15→21:24)
--- NOTE | 2018-05-18 15:09 | PN ---
PROGRESS NOTE DATE OF SERVICE: 05/18/2018 DATA: She is an 83-year-old white female, , date of 1935, room #362, bed 1 [facility]. On desk monitor. She is a NO CODE. Her height is 4 feet 11 inches, weight 64.8 kg. The BSA 1.60 m2, BMI 28.9 kg/m2. ALLERGY: ADHESIVE TAPE and PENICILLIN. Patient tolerating Rocephin without any allergic reaction and she actually waking up and able to sit and eat, able to also go to the bathroom as well as the incontinence has been progressively improving, which she was in the BM. She is urinating as well without incontinence. On reviewing of the lab today, her sodium 138, potassium 4 and chloride 108, carbon dioxide 26 and her BUN of 29 and creatinine 1.14 and patient had the creatinine on 05/16 at the time of the admission 1.02 and subsequently with the acute event with the hypertensive crisis, her creatinine went up to 1.25 and subsequently the hydration started, antibiotic with the underlying urinary tract infection and lethargy, obtundation and thought of sepsis as well and currently her creatinine down to 1.14. Hopefully tomorrow, improving more and will continue the IV in the 100 mL/hour. LABORATORY: Indicating that her estimated glomerular filtration rate is improved and that was for non- is 45 and her glucose 87 and the POC glucose was bible reader 96, stable and before lunch 120 which is controlled well. PHYSICAL EXAMINATION: The patient is conscious, alert, able to communicate freely. She is waking up. Her temperature today 98.1 and orally and her heart rate 63, respiratory rate 18, blood pressure 136/62 with the mean pressure 86. Her oxygen saturation 94% on room air. We advised with ambulation as well as physical therapy with the instability and we started her on heparin subcu q.12 hours, 5000. On the HEENT, the head was normocephalic, atraumatic. Oropharynx was negative and she is able to swallow and eat. She is moving all 4 extremities upper and lower and no evidence of lateralizing sign. No evidence of stroke and with the underlying history of metabolic encephalopathy that has been resolved. The neck was supple. No JVD. No thyromegaly. No lymphadenopathy. Chest was clear to auscultation, percussion and the heart PMI in the fifth intercostal space outside midclavicular sign and regular sinus rhythm. She had murmur on the left sternal border and a grade 2/6. Abdomen was soft, nontender. However, the CAT scan indicating a third of her proximal stomach in the thoracic cavity. She had some costochondritis as well with the rib tenderness; however, the abdomen is not tender. No evidence of constipation. Extremities, no edema, positive pulses and with the stasis dermatitis of the legs bilaterally. ASSESSMENT: 1. Lethargy and obtundation with the probable etiology of the urinary tract infection. 2. Urinary tract infection, waiting for the culture and patient on antibiotic Rocephin q.12 hours. 3. Diabetes mellitus. Currently controlled. 4. Hypertension, admitted with hypertensive crisis with the blood pressure 207 systolic. 5. The underlying history of peripheral vascular disease. 6. Aortobifemoral bypass. 7. Rheumatoid arthritis. 8. Immunosuppressed and at this time, we held with the infection the Enbrel that she has been taken for that. 9. Hyperlipidemia. 10.She had insulin-dependent diabetes mellitus type 2, which currently controlled. 11.Hypothyroidism. 12.Hypertension with hypertensive heart disease. 13.She has underlying stool incontinence and has been treated in the past by Dr. Gutierrez as well as Dr. Mejia and we placed their medication on at this time. 14.She had gastroesophageal reflux disease and she is on a Protonix. 15.She has significant pulmonary hypertension and she is on Cialis 10 mg daily, which is improving her pulmonary hypertension significantly. PLAN: Will continue current medication. Ambulate as physical therapy as well as starting the ambulation. Waiting for the culture of the urine and adjusting antibiotic accordingly and the patient did well with the blood pressure, which has not been increased again, stable and we will be able to discharge her in 24 hours to 48 hour. MMODL / IJN: [id number] /
[2018-05-18 16:34] LABS: Glucose,Whole Blood 136 mg/dL (75-99)
[2018-05-18 20:39] LABS: Glucose,Whole Blood 161 mg/dL (75-99)
[2018-05-18] MEDS: hydrALAZINE HCL 25 MG TAB PO SCH (21:24)
[2018-05-18] MEDS: INSULIN DETEMIR 100 UNIT/ML 10 ML VIAL SQ SCH (21:25)
[2018-05-19] MEDS: cycloSPORINE 0.05% OPHTH 0.4 ML DROPERETTE BOTH EYES SCH (00:11)
[2018-05-19] MEDS: SODIUM CHLORIDE 0.9% 1,000 ML IV SCH ×2 (00:23→11:50)
[2018-05-19 05:35] LABS: Glucose,Whole Blood 111 mg/dL (75-99)
[2018-05-19] MEDS: PANTOPRAZOLE 40 MG TABLET PO SCH (06:23)
[2018-05-19] MEDS: INSULIN ASPART 100 UNIT/ML 1 ML 10 ML VIAL SQ SCH ×2 (06:23→11:51)
[2018-05-19] MEDS: LEVOTHYROXINE 75 MCG TAB PO SCH (06:23)
[2018-05-19 07:30] LABS: Calcium 8.6 mg/dL (8.4-10.2); Potassium 4.1 mmol/L (3.5-5.1)
[2018-05-19 08:43] LABS: Basophils % (A) 1 %; Eosinophils # (A) 0.2 k/uL (0-0.7); Eosinophils % (A) 4 %; HCT 30.3 % (34.0-46.0); HGB 10.3 gm/dL (11.4-16.0); Lymphocytes # (A) 1.5 k/uL (1.0-4.8); Lymphocytes % (A) 25 %; MCHC 33.9 g/dL (31.0-37.0); MCV 94.5 fL (80.0-100.0); Mean Platelet Volume 7.5; Monocytes # (A) 0.3 k/uL (0-1.0); Monocytes % (A) 5 %; Neutrophils # (A) 3.7 k/uL (1.3-7.7); Neutrophils % (A) 64 %; Platelet Count 101 k/uL (150-450); RBC 3.21 m/uL (3.80-5.40); RDW 15.6 % (11.5-15.5); WBC 5.8 k/uL (3.8-10.6)
[2018-05-19] MEDS ORDERED: LISINOPRIL 5 MG TAB PO SCH (09:00)
[2018-05-19] MEDS: CHOLESTYRAMINE (WITH SUGAR) 4 GM PACKET PO SCH (09:32)
[2018-05-19] MEDS: HEPARIN SODIUM,PORCINE 5,000 UNIT/ML 1 ML VIAL SQ SCH (09:35)
[2018-05-19] MEDS: amLODIPine 5 MG TAB PO SCH (09:38)
[2018-05-19] MEDS: CHOLECALCIFEROL 1,000 UNIT TAB PO SCH (09:38)
[2018-05-19] MEDS: ASPIRIN 81 MG PO SCH (09:38)
[2018-05-19] MEDS: CYANOCOBALAMIN 500 MCG TAB PO SCH (09:39)
[2018-05-19] MEDS: ATORVASTATIN 20 MG TAB PO SCH (09:39)
[2018-05-19] MEDS: FLUTICASONE 50MCG/SPRAY NASAL 16GM EA NOSTRIL SCH (09:40)
[2018-05-19] MEDS: FERROUS SULFATE 325 MG TAB PO SCH (09:40)
[2018-05-19] MEDS: DULoxetine HCL 60 MG CAPSULE.DR PO SCH (09:40)
[2018-05-19] MEDS: FUROSEMIDE 20 MG TAB PO SCH (09:40)
[2018-05-19] MEDS: hydrALAZINE HCL 25 MG TAB PO SCH (09:41)
[2018-05-19] MEDS: METOPROLOL TARTRATE 50 MG TAB PO SCH (09:41)
[2018-05-19] MEDS: ISOSORBIDE MONONITRATE ER 30 MG TAB.ER.24H PO SCH (09:41)
[2018-05-19] MEDS: CIALIS 10 MG PO SCH (09:42)
[2018-05-19 11:15] VITALS: TEMP 97.6
[2018-05-19 11:49] LABS: Glucose,Whole Blood 114 mg/dL (75-99)
[2018-05-19 12:23] VITALS: BP 186/73; PULSE 60; RESP 18
--- NOTE | 2018-05-19 18:31 | DS ---
DISCHARGE SUMMARY DATE OF SERVICE: 05/19/2018 DATA: Height 4 feet 11 inches, weight 67.1 kg, BSA 1.262 m2, BMI 29.9 kg/m2. She has ALLERGIES to ADHESIVE TAPE and PENICILLIN. FINAL DIAGNOSES: 1. Lethargy and obtundation. 2. Acute hypertensive crisis and transferred from the office to the emergency room with the blood pressure 188 in the office, in the emergency room 207 systolic. 3. Underlying multiple SSRI associated with lethargy; however, not clearly to diagnose serotonin syndrome. 4. Urinary tract infection with bladder retention by the CT; however, there is no need for insertion of the bladder. No catheter was used. 5. Immunocompromised with underlying treatment with medication for rheumatoid arthritis. 6. Hypothyroidism. 7. Dehydration. 8. Severe atherosclerotic disease of the coronary vessels and generalized atherosclerosis. 9. Aortic aneurysm, status post aortofemoral bypass with underlying peripheral vascular disease, more prominent in the left lower extremity. 10.Underlying compression fracture of the lower thoracic spine by the x-ray. However, undetermined time of this fracture; it could be intermediate or old. 11.Hyperlipidemia. 12.Gastroesophageal reflux disease with the third of the stomach in the thoracic cavity. 13.Stool incontinence. 14.Coronary artery disease; atherosclerotic heart disease. 15.Diabetes mellitus, insulin-dependent. 16.Pulmonary hypertension. She was treated by Dr. Renee with tadalafil, Pulmonary and Critical Care. 17.History of restless leg syndrome, treated with Requip. 18.Underlying anxiety and depression. HOSPITAL ADMISSION: Through the emergency room. At that time the patient was seen and evaluated by Dr. Le. Patient was severely lethargic and sleepy, could not function, and had to have 2 people to give her the care at that time. His impression at the time of admission was hypertension. Her blood pressure on admission from the ER was 209/91 and the second reading was 207/84. Subsequently they started her on medication. They used medication in the ER including Ativan as well as hydralazine. Subsequently the patient's blood pressure was improving and she was admitted to the floor with monitor. Subsequently it was found that she had a urinalysis which indicated large amount of leukocyte esterase. Urine with WBC 14 and occasional bacteria. Culture was obtained during her presence on the floor. HOSPITAL COURSE: Patient was admitted to the floor. She was monitored and it was found that her renal function had been deteriorated with the use of IV 20 mL/hour normal saline. Subsequently we increased it to 100 and patient tolerated that rate; able to clear. Her dehydration is improved. Her creatinine is improved. Initially the creatinine was 1.02 and it increased suddenly to 1.25. However, with the continuation of hydration, her creatinine started to come down, with 1.14, and today it is 0.86, which is her baseline. Her vital signs indicate that her blood pressure gradually improved. Prior to discharge it was 143/85; however, with the excitement with discharge, her blood pressure was 186/73. However, once she rests at home, it will be back to the normal range that she has been stable with, without elevation. As the patient woke up with the hydration, she was able to move, able to go to the bathroom, and we started her on Rocephin. The culture of the urine after 18 hours showed no available bacteria and we will start her on Rocephin. At the discharge time, we used Levaquin 250 mg once a day for 5 days until we have the complete results of the culture. On the discharge today, patient is stable, feeling fine; no pain in the chest or the abdomen. Her vital signs were stable at the time of discharge. At that time she was ambulatory and the patient was able to go home. The neck was supple. The head was normocephalic, atraumatic. The chest was clear to auscultation and percussion. No wheezes. No rhonchi. HEART: PMI in the fifth intercostal space. Normal S1, S2. No gallop. The abdomen was soft, nontender. Positive bowel sounds. But part of her stomach is intrathoracic. She denied any problem, as I did see her at the lunch time to observe if she had any pain with that. EXTREMITIES: No edema. She has stasis dermatitis. She had peripheral vascular disease. Neurologically she has no lateralizing signs and she is ambulatory. The patient will be discharged home today in stable general condition and be seen on Tuesday in the office for followup and further evaluation of her blood pressure and medication. I did reconcile her medication and I did give her also treatment for the stool incontinence, which has been treated with cholestyramine 4 mg twice a day dissolved in water or juice as well as Imodium A-D 2 mg 3 times a day p.r.n. with the stool incontinence. This treatment has been given to her before by Gastroenterology, Dr. Mejia and Dr. Gutierrez. MMMIGUEL / TIFFANIEN: [id number] /
[2018-05-19] MEDS ORDERED: amLODIPine 5 MG TAB PO SCH (21:00)
--- NOTE | 2018-05-22 13:42 | CDI ---
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 Please respond to the clarification below the line at the bottom and electronically sign. The CDI & [facility] Coding staff will review the response and follow-up if needed. Please note: Queries are made part of the Legal Health Record. If you have any questions, please contact the author of this message via ITS. Issac Sibley MD Possible sepsis is documented in 05/17 & 05/18 PN by you but not in the discharge summary. History/Risk Factors: UTI, HTN, DM, dehydration, pulmonary HTN Clinical Indicators: WBC/Left Shift: 9.6/6.5 Lactic acid: none Blood cultures: none Vitals signs on admission: T-98.2, P-68 then 59, R-28, BP-209-91, O2 sats-99 Other Clinical Indicators: UTI with no growth Treatment: IV fluids, IV Ativan, IV Vasotec, IV Apresoline, IV Rocephin on 05/17 ID Consult: none In your professional opinion, please clarify if these findings signify one of the following conditions, whether the condition is POA: Sepsis ruled in Sepsis ruled out Other, please specify Unable to determine SIRS Criteria..2 or more of the following may indicate SIRS: Temperature < 96.8F (36C) or > 101.0F (38.3C) Heart Rate > 90 bpm Respiratory Rate > 20 breaths/min or PaCO2 < 32 mmHg White Blood Cell Count > 12,000 or < 4,000 cells/mm3 or > 10% bands Lactate >2.0 mmol/L (>4.0 is equivalent to septic shock) Please continue to document in your progress notes and discharge summary in order to capture severity of illness and risk of mortality. Include clinical findings that support your diagnosis. #1. Metabolic encephalopathy, UTI, sepsis ruled out, accelerated hypertension uncontrolled. Immune compromised, secondary to treatment for rheumatoid arthritis,. No clearcut criteria for SRIS with a temperature 98.2 however respiratory rate was 28. MTDD
== END 2018-05-19 13:49 | disposition home or self-care (01) | DRG 304 ==
LOC: EC 11:32 → 3SCARD 14:24
PROVIDERS: ADMIT Internal Medicine; ATTEND Internal Medicine
DX: I16.9 Hypertensive crisis, unspecified (principal); G93.41 Metabolic encephalopathy; M48.54XA Collapsed vertebra, not elsewhere classified, thoracic region, initial encounter for fracture; N39.0 Urinary tract infection, site not specified; Z66 Do not resuscitate; E11.22 Type 2 diabetes mellitus with diabetic chronic kidney disease; E11.40 Type 2 diabetes mellitus with diabetic neuropathy, unspecified; I27.20 Pulmonary hypertension, unspecified; E83.41 Hypermagnesemia; E11.51 Type 2 diabetes mellitus with diabetic peripheral angiopathy without gangrene; E86.0 Dehydration; J44.9 Chronic obstructive pulmonary disease, unspecified; G25.81 Restless legs syndrome; D63.1 Anemia in chronic kidney disease; I87.2 Venous insufficiency (chronic) (peripheral); M06.9 Rheumatoid arthritis, unspecified; I13.10 Hypertensive heart and chronic kidney disease without heart failure, with stage 1 through stage 4 chronic kidney disease, or unspecified chronic kidney disease; N18.3 Chronic kidney disease, stage 3 (moderate); R15.9 Full incontinence of feces; R00.1 Bradycardia, unspecified; F32.9 Major depressive disorder, single episode, unspecified; F41.9 Anxiety disorder, unspecified; I25.10 Atherosclerotic heart disease of native coronary artery without angina pectoris; E03.9 Hypothyroidism, unspecified; R33.9 Retention of urine, unspecified; H04.123 Dry eye syndrome of bilateral lacrimal glands; I25.2 Old myocardial infarction; M19.90 Unspecified osteoarthritis, unspecified site; E78.5 Hyperlipidemia, unspecified; M94.0 Chondrocostal junction syndrome [Tietze]; N32.89 Other specified disorders of bladder; K21.9 Gastro-esophageal reflux disease without esophagitis; Z85.3 Personal history of malignant neoplasm of breast; Z79.82 Long term (current) use of aspirin; Z79.4 Long term (current) use of insulin; Z79.890 Hormone replacement therapy; Z79.899 Other long term (current) drug therapy; Z98.51 Tubal ligation status; Z87.891 Personal history of nicotine dependence; Z90.49 Acquired absence of other specified parts of digestive tract; Z86.79 Personal history of other diseases of the circulatory system; Z92.3 Personal history of irradiation; Z88.0 Allergy status to penicillin; Z91.048 Other nonmedicinal substance allergy status; Z80.9 Family history of malignant neoplasm, unspecified; Z82.49 Family history of ischemic heart disease and other diseases of the circulatory system
CPT/HCPCS: 36415; 71046; 74176; 80048; 80053; 81001; 82150; 82550; 82553; 83036; 83690; 83735; 84484; 85025; 85610; 85730; 87086; 93005; 96361; 96374; 96375; 99285

== ENCOUNTER 2019-12-09 18:08 | Emergency (ER) | payer MEDICARE ==
[2019-12-09 18:18] VITALS: TEMP 98.3
--- NOTE | 2019-12-09 18:20 | ED ---
Fall HPI - General Chief Complaint: Fall Stated Complaint: Fall Time Seen by Provider: 12/09/19 18:19 Source: patient, EMS, RN notes reviewed, old records reviewed Mode of arrival: EMS - History of Present Illness Initial Comments: This is a 84-year-old female DF for evaluation patient comes to the ED for evaluation regards to fall. Patient of fall 2 days ago complaining of severe left-sided rib pain and hit her head. 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 (2) Fall Witnessed: yes, by living facility staff Place Fall Occurred: jail[facility] Loss of Consciousness: unsure Prolonged Down Time?: no Symptoms Prior to Fall: none Location: head, chest, back Severity: moderate Severity scale (1-10): 3 Quality: aching Context: tripped/slipped Associated Symptoms: denies - Related Data Home Medications Medication Instructions Recorded Confirmed Aspirin [Adult Low Dose Aspirin EC] 81 mg PO DAILY 07/02/16 05/16/18 Cholecalciferol [Vitamin D3 (25 2,000 unit PO DAILY 07/02/16 05/16/18 Mcg = 1000 Iu)] DULoxetine HCL [Cymbalta] 60 mg PO DAILY 07/02/16 05/16/18 Ferrous Sulfate [Iron (65 MG 325 mg PO DAILY 07/02/16 05/16/18 Elemental)] INSULIN LISPRO (humaLOG) [humaLOG] See Protocol SQ DIRECTED 07/02/16 05/16/18 Insulin Detemir (Levemir) [Levemir] 30 unit SQ HS 07/02/16 05/16/18 Levothyroxine Sodium [Synthroid] 150 mcg PO DAILY 07/02/16 05/16/18 Metoprolol Tartrate [Lopressor] 50 mg PO BID 07/02/16 05/16/18 Omeprazole 20 mg PO DAILY 07/02/16 05/16/18 Atorvastatin [Lipitor] 20 mg PO DAILY 03/17/18 05/16/18 Cyanocobalamin (Vitamin B-12) 1,000 mcg PO DAILY 05/16/18 05/16/18 [Vitamin B-12] Etanercept [Enbrel] 50 mg SQ Q7DAYS 05/16/18 05/16/18 Fluticasone Nasal [place] [Flonase 2 spr EA NOSTRIL DAILY 05/16/18 05/16/18 Nasal [place]] Furosemide [Lasix] 20 mg PO DAILY 05/16/18 05/16/18 Isosorbide Mononitrate ER [Imdur] 30 mg PO DAILY 05/16/18 05/16/18 Lisinopril [Zestril] 10 mg PO DAILY 05/16/18 05/16/18 Tadalafil [Cialis] 10 mg PO DAILY 05/16/18 05/16/18 amLODIPine [Norvasc] 5 mg PO BID 05/16/18 05/16/18 cycloSPORINE [Restasis] 1 drop BOTH EYES HS 05/16/18 05/16/18 hydrALAZINE HCL [Apresoline] 50 mg PO DAILY 05/16/18 05/16/18 rOPINIRole HCL [Requip] 0.25 mg PO DAILY 05/16/18 05/16/18 Previous Rx's Medication Instructions Recorded Cholestyramine (with Sugar) 4 gm PO BID@1000,1800 #14 packet 05/19/18 [Questran Packet] Levofloxacin [Levaquin] 250 mg PO DAILY #5 tablet 05/19/18 Loperamide [Imodium] 2 mg PO QID PRN #30 cap 05/19/18 Allergies Allergy/AdvReac Type Severity Reaction Status Date / Time adhesive tape Allergy Rash/Hives Verified 05/16/18 12:25 Penicillins Allergy Swelling Verified 05/16/18 12:25 Review of Systems ROS Statement: Those systems with pertinent positive or pertinent negative responses have been documented in the HPI. ROS Other: All systems not noted in ROS Statement are negative. Past Medical History Past Medical History: Cancer, Diabetes Mellitus, GERD/Reflux, Hyperlipidemia, Hypertension, Memory Impairment, Rheumatoid Arthritis (RA), Thyroid Disorder Additional Past Medical History / Comment(s): States age related memory impairment. 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 Hx right breast cancer had sx and radiaiton tx,, aortic aneurysm(sx done). per [facility] "leaky heart valve" History of Any Multi-Drug Resistant Organisms: None Reported Past Surgical History: Appendectomy, Back Surgery, Breast Surgery, Heart Catheterization, Tonsillectomy, Tubal Ligation Additional Past Surgical History / Comment(s): Surgery for arortic aneurysm, surgery on toes of bilateral feet, ablation done on back X2, had uvula removed.lt carpal tunnel release, beverly cataracts, beverly carotid endarterectomy, partial rt mastectomy. colonoscopy/egd/esophgeal dilations, laminectomy/past pain clinic procedures, bunionectomy beverly feet. Past Anesthesia/Blood Transfusion Reactions: No Reported Reaction Past Psychological History: No Psychological Hx Reported Smoking Status: Former smoker - Past Family History Sister(s) Family Medical History: Cancer Additional Family Medical History / Comment(s): Aneurysm. States 3 of her sisters had cancer. Father Additional Family Medical History / Comment(s): Anerysym Mother Additional Family Medical History / Comment(s): Aneurysm Brother(s) Additional Family Medical History / Comment(s): Aneurysm General Exam Limitations: no limitations General appearance: alert, in no apparent distress Head exam: Present: atraumatic, normocephalic, normal inspection Eye exam: Present: normal appearance, PERRL, EOMI. Absent: scleral icterus, conjunctival injection, periorbital swelling ENT exam: Present: normal exam, mucous membranes moist Neck exam: Present: normal inspection. Absent: tenderness, meningismus, lymphadenopathy Respiratory exam: Present: normal lung sounds bilaterally. Absent: respiratory distress, wheezes, rales, rhonchi, stridor Cardiovascular Exam: Present: regular rate, normal rhythm, normal heart sounds. Absent: systolic murmur, diastolic murmur, rubs, gallop, clicks GI/Abdominal exam: Present: soft, normal bowel sounds. Absent: distended, tenderness, guarding, rebound, rigid Extremities exam: Present: normal inspection, full ROM, normal capillary refill. Absent: tenderness, pedal edema, joint swelling, calf tenderness Back exam: Present: normal inspection Neurological exam: Present: alert, oriented X3, CN II-XII intact Psychiatric exam: Present: normal affect, normal mood Skin exam: Present: warm, dry, intact, normal color. Absent: rash Course Vital Signs 12/09/19 12/09/19 18:10 19:52 Temperature 98.3 F Pulse Rate 98 103 H Respiratory 18 16 Rate Blood Pressure 176/85 139/73 O2 Sat by Pulse 97 100 Oximetry - Reevaluation(s) Reevaluation #1: 12/09/19 20:45 Medical records reviewed Reevaluation #2: 12/09/19 20:45 Patient is awake and alert Medical Decision Making - Medical Decision Making 84 female DF for evaluation patient has fall with left rib fracture nothing else found - Lab Data Result diagrams: 12/09/19 19:17 12/09/19 19:17 Lab Results 12/09/19 12/09/19 12/09/19 Range/Units 19:17 19:17 19:17 WBC 10.4 (3.8-10.6) k/uL RBC 3.03 L (3.80-5.40) m/uL Hgb 9.5 L (11.4-16.0) gm/dL Hct 28.8 L (34.0-46.0) % MCV 95.0 (80.0-100.0) fL MCH 31.2 (25.0-35.0) pg MCHC 32.9 (31.0-37.0) g/dL RDW 15.1 (11.5-15.5) % Plt Count 149 L (150-450) k/uL Neutrophils % 64 % Lymphocytes % 27 % Monocytes % 5 % Eosinophils % 2 % Basophils % 0 % Neutrophils # 6.6 (1.3-7.7) k/uL Lymphocytes # 2.8 (1.0-4.8) k/uL Monocytes # 0.6 (0-1.0) k/uL Eosinophils # 0.2 (0-0.7) k/uL Basophils # 0.1 (0-0.2) k/uL PT 9.7 (9.0-12.0) sec INR 0.9 (<1.2) APTT 20.1 L (22.0-30.0) sec Sodium 137 (137-145) mmol/L Potassium 3.6 (3.5-5.1) mmol/L Chloride 103 (98-107) mmol/L Carbon Dioxide 26 (22-30) mmol/L Anion Gap 8 mmol/L BUN 26 H (7-17) mg/dL Creatinine 0.94 (0.52-1.04) mg/dL Est GFR (CKD-EPI)AfAm 65 (>60 ml/min/1.73 sqM) Est GFR (CKD-EPI)NonAf 56 (>60 ml/min/1.73 sqM) Glucose 122 H (74-99) mg/dL Plasma Lactic Acid Morales (0.7-2.0) mmol/L Calcium 9.0 (8.4-10.2) mg/dL Phosphorus 2.8 (2.5-4.5) mg/dL Magnesium 2.2 (1.6-2.3) mg/dL Total Bilirubin 1.0 (0.2-1.3) mg/dL AST 20 (14-36) U/L ALT 12 (4-34) U/L Alkaline Phosphatase 75 (38-126) U/L Creatine Kinase 44 (30-135) U/L Troponin I (0.000-0.034) ng/mL Total Protein 6.0 L (6.3-8.2) g/dL Albumin 3.6 (3.5-5.0) g/dL 12/09/19 12/09/19 Range/Units 19:17 19:17 WBC (3.8-10.6) k/uL RBC (3.80-5.40) m/uL Hgb (11.4-16.0) gm/dL Hct (34.0-46.0) % MCV (80.0-100.0) fL MCH (25.0-35.0) pg MCHC (31.0-37.0) g/dL RDW (11.5-15.5) % Plt Count (150-450) k/uL Neutrophils % % Lymphocytes % % Monocytes % % Eosinophils % % Basophils % % Neutrophils # (1.3-7.7) k/uL Lymphocytes # (1.0-4.8) k/uL Monocytes # (0-1.0) k/uL Eosinophils # (0-0.7) k/uL Basophils # (0-0.2) k/uL PT (9.0-12.0) sec INR (<1.2) APTT (22.0-30.0) sec Sodium (137-145) mmol/L Potassium (3.5-5.1) mmol/L Chloride (98-107) mmol/L Carbon Dioxide (22-30) mmol/L Anion Gap mmol/L BUN (7-17) mg/dL Creatinine (0.52-1.04) mg/dL Est GFR (CKD-EPI)AfAm (>60 ml/min/1.73 sqM) Est GFR (CKD-EPI)NonAf (>60 ml/min/1.73 sqM) Glucose (74-99) mg/dL Plasma Lactic Acid Morales 1.7 (0.7-2.0) mmol/L Calcium (8.4-10.2) mg/dL Phosphorus (2.5-4.5) mg/dL Magnesium (1.6-2.3) mg/dL Total Bilirubin (0.2-1.3) mg/dL AST (14-36) U/L ALT (4-34) U/L Alkaline Phosphatase (38-126) U/L Creatine Kinase (30-135) U/L Troponin I 0.014 (0.000-0.034) ng/mL Total Protein (6.3-8.2) g/dL Albumin (3.5-5.0) g/dL - EKG Data -: EKG Interpreted by Me (EKG shows sinus tachycardia rate of 104 NE 154 QRS 74 QTc 494) - Radiology Data Radiology results: report reviewed (CT brain C-spine x-ray chest and left ribs and pelvis show left rib fracture), image reviewed Disposition Clinical Impression: Fall, Left rib fracture Disposition: HOME SELF-CARE Condition: Good Instructions (If sedation given, give patient instructions): Fall Prevention for Older Adults (ED), Rib Fracture (ED) Is patient prescribed a controlled substance at d/c from ED?: No Referrals: Issac Olivia MD [Primary Care Provider] - 1-2 days
--- NOTE | 2019-12-09 18:56 | CT ---
EXAMINATION TYPE: CT brain cspine wo con DATE OF EXAM: 12/09/2019 COMPARISON: None HISTORY: fall CT DLP: 1275.1 mGycm, Automated exposure control for dose reduction was used. CONTRAST: None CT of the brain is performed utilizing 3 mm thick sections through the posterior fossa and 3 mm thick sections through the remaining calvarium. Study is performed within 24 hours of arrival to the hospital. No abnormal hyperdensity is present to suggest an acute intracranial hemorrhage. No mass lesion is evident. No acute infarcts are evident. Periventricular white matter hypodensity is present compatible with p atchy to confluent white matter ischemic type changes. Ventricles and sulci are prominent for the patient age. Paranasal sinuses and mastoid air cells within the [id number] are clear. IMPRESSIONS: 1. Atrophy with periventricular white matter ischemic changes. CT cervical spine. COMPARISON: None CT of the cervical spine is performed in the axial plane at 2 mm thick sections. Reconstructed image s in the coronal, and sagittal plane are reviewed on the computer. No acute fractures are evident. Vertebral body alignment is normal. Disc heights are preserved. Vertebral body heights are preserved. No spinal canal stenosis is evident. Some facet hypertrophy is noted within the cervical spine. Mild foraminal narrowing is present C3-4 l evel. IMPRESSIONS: 1. No acute osseous abnormality cervical spine
--- NOTE | 2019-12-09 19:02 | XR ---
EXAMINATION TYPE: XR pelvis AP view DATE OF EXAM: 12/09/2019 COMPARISON: None HISTORY: Fall, pain TECHNIQUE: Single AP pelvis FINDINGS: Degenerative facet changes are within the lower lumbar spine. Sacroiliac joints and symphys is pubis are normal. Femoral heads articulate with the acetabulum. Vascular calcification is in the f emoral arteries. There is joint space narrowing at the bilateral hips. No acute fractures are evident . Normal bowel gas is present. IMPRESSION: 1. No acute osseous abnormality AP pelvis
[2019-12-09] MEDS ORDERED: SODIUM CHLORIDE 0.9% 1,000 ML IV STA (19:03)
--- NOTE | 2019-12-09 19:05 | XR ---
EXAMINATION TYPE: XR ribs LT w pa chest xray DATE OF EXAM: 12/09/2019 COMPARISON: Chest x-ray 05/16/2018 HISTORY: Fall, pain TECHNIQUE: Chest examined in the frontal projection. Left ribs are examined in 2 views. FINDINGS: No pneumothorax is evident. Heart size is normal. Pulmonary vasculature is normal. Costocho ndral cartilage calcification is present. Some minimal atelectasis may be at the left base. There is a subtle anterior left 10th rib fracture evident. IMPRESSION: 1. Anterior left 10th rib fracture
[2019-12-09 19:33] LABS: Basophils # (A) 0.1 k/uL (0-0.2); Basophils % (A) 0 %; Eosinophils # (A) 0.2 k/uL (0-0.7); Eosinophils % (A) 2 %; HCT 28.8 % (34.0-46.0); HGB 9.5 gm/dL (11.4-16.0); Lymphocytes # (A) 2.8 k/uL (1.0-4.8); Lymphocytes % (A) 27 %; MCH 31.2 pg (25.0-35.0); MCHC 32.9 g/dL (31.0-37.0); Mean Platelet Volume 8.1; Monocytes # (A) 0.6 k/uL (0-1.0); Monocytes % (A) 5 %; Neutrophils # (A) 6.6 k/uL (1.3-7.7); Neutrophils % (A) 64 %; Platelet Count 149 k/uL (150-450); RBC 3.03 m/uL (3.80-5.40); RDW 15.1 % (11.5-15.5); WBC 10.4 k/uL (3.8-10.6)
[2019-12-09 19:45] LABS: Albumin 3.6 g/dL (3.5-5.0); Magnesium 2.2 mg/dL (1.6-2.3); Phosphorus 2.8 mg/dL (2.5-4.5); Potassium 3.6 mmol/L (3.5-5.1)
[2019-12-09 19:48] LABS: INR 0.9 (<1.2); Prothrombin Time 9.7 sec (9.0-12.0)
[2019-12-09 19:54] VITALS: RESP 16
[2019-12-09 20:08] LABS: Partial Thromboplastin Time 20.1 sec (22.0-30.0)
[2019-12-09] MEDS ORDERED: MORPHINE SULFATE 2 MG/ML SYRINGE IVP STA (20:43)
[2019-12-09 21:32] VITALS: BP 158/63; PULSE 82
== END 2019-12-09 21:41 | disposition home or self-care (01) ==
LOC: EC 18:08
DX: S22.32XA Fracture of one rib, left side, initial encounter for closed fracture (principal); E11.9 Type 2 diabetes mellitus without complications; I10 Essential (primary) hypertension; K21.9 Gastro-esophageal reflux disease without esophagitis; E78.5 Hyperlipidemia, unspecified; E07.9 Disorder of thyroid, unspecified; Z79.82 Long term (current) use of aspirin; Z79.4 Long term (current) use of insulin; Z79.890 Hormone replacement therapy; Z79.51 Long term (current) use of inhaled steroids; Z79.899 Other long term (current) drug therapy; Z88.0 Allergy status to penicillin; Z91.048 Other nonmedicinal substance allergy status; Z87.891 Personal history of nicotine dependence; Z85.3 Personal history of malignant neoplasm of breast; Z90.12 Acquired absence of left breast and nipple; W01.0XXA Fall on same level from slipping, tripping and stumbling without subsequent striking against object, initial encounter
CPT/HCPCS: 36415; 93005; 80053; 82550; 83605; 83735; 84100; 84484; 85025; 85610; 85730; 71101; 72170; 72125; 70450; 99285; 96374; J2270

== ENCOUNTER → 2020-02-15 | Outpatient (CLI) | payer MEDICARE ==
--- NOTE | 2020-02-15 15:00 | US ---
EXAMINATION TYPE: US venous doppler duplex LE BI DATE OF EXAM: 02/15/2020 2:23 PM COMPARISON: NONE CLINICAL HISTORY: 84-year-old female R22.42 SWELLING OF LT LOWER LIMB. Pain and edema bilateral legs, discoloration bilateral lower legs SIDE PERFORMED: bilateral TECHNIQUE: The lower extremity deep venous system is examined utilizing real time linear array sonog steven with graded compression, doppler sonography and color-flow sonography. FINDINGS: VESSELS IMAGED: External Iliac Vein (EIV) Common Femoral Vein Deep Femoral Vein Greater Saphenous Vein * Femoral Vein Popliteal Vein Small Saphenous Vein * Proximal Calf Veins (* superficial vessels) Right Leg: no evidence of DVT Left Leg: no evidence of DVT IMPRESSION: No evidence for DVT within the bilateral lower extremities imaged from the groin to the upper calves.
== END | disposition home or self-care (01) ==
LOC: RADUSWWP 13:52
PROVIDERS: ATTEND Internal Medicine
DX: R22.42 Localized swelling, mass and lump, left lower limb (principal); R22.41 Localized swelling, mass and lump, right lower limb; M06.9 Rheumatoid arthritis, unspecified; Z88.0 Allergy status to penicillin; Z91.040 Latex allergy status; Z88.6 Allergy status to analgesic agent
CPT/HCPCS: 85379; 85652; 93970

== ENCOUNTER 2020-08-28 09:32 | Emergency (ER) | payer MEDICARE ==
[2020-08-28 09:44] VITALS: RESP 18; TEMP 97.9
[2020-08-28] MEDS ORDERED: MORPHINE SULFATE 2 MG/ML SYRINGE IM STA (10:06)
--- NOTE | 2020-08-28 10:45 | XR ---
EXAMINATION TYPE: XR humerus LT DATE OF EXAM: 08/28/2020 COMPARISON: NONE HISTORY: Pain TECHNIQUE: 2 views submitted. FINDINGS: There is a displaced fracture involving the left humeral neck. Remaining osseous structures intact wi th arthropathy of the AC joint. Vascular calcifications noted. Tiny olecranon spur. IMPRESSION: 1. Displaced left humeral neck fracture.
--- NOTE | 2020-08-28 10:46 | XR ---
EXAMINATION TYPE: XR shoulder complete LT DATE OF EXAM: 08/28/2020 COMPARISON: NONE HISTORY: Pain TECHNIQUE: Three views are submitted. FINDINGS: There is a fracture involving the left humeral neck. Arthropathy of the AC joint. Visualized lung fie lds clear. Remaining osseous structures intact. Vascular calcifications noted. IMPRESSION: 1. Minimally displaced left humeral neck fracture.
--- NOTE | 2020-08-28 11:04 | ED ---
General Adult HPI - General Chief complaint: Extremity Injury, Upper Stated complaint: Fall, L Arm Injury Time Seen by Provider: 08/28/20 09:52 Source: patient, RN notes reviewed Mode of arrival: ambulatory Limitations: no limitations - History of Present Illness Initial comments: 85-year-old female with a past medical history of hyperlipidemia, hypertension, memory impairment presents to the emergency room for a chief complaint of left arm pain. Patient was walking quickly around a corner and tripped over a box falling on her left arm. She did not hit her head. She does not take blood thinners. No loss of consciousness. She did obtain a skin tear noted to the right leg. Patient denies any other injuries. Denies neck or back pain. Denies any pain in the legs.Patient has no other complaints at this time including shortness of breath, chest pain, abdominal pain, nausea or vomiting, headache, or visual changes. - Related Data Home Medications Medication Instructions Recorded Confirmed Aspirin [Adult Low Dose Aspirin EC] 81 mg PO DAILY 07/02/16 05/16/18 Cholecalciferol [Vitamin D3 (25 2,000 unit PO DAILY 07/02/16 05/16/18 Mcg = 1000 Iu)] DULoxetine HCL [Cymbalta] 60 mg PO DAILY 07/02/16 05/16/18 Ferrous Sulfate [Iron (65 MG 325 mg PO DAILY 07/02/16 05/16/18 Elemental)] INSULIN LISPRO (humaLOG) [humaLOG] See Protocol SQ DIRECTED 07/02/16 05/16/18 Insulin Detemir (Levemir) [Levemir] 30 unit SQ HS 07/02/16 05/16/18 Levothyroxine Sodium [Synthroid] 150 mcg PO DAILY 07/02/16 05/16/18 Metoprolol Tartrate [Lopressor] 50 mg PO BID 07/02/16 05/16/18 Omeprazole 20 mg PO DAILY 07/02/16 05/16/18 Atorvastatin [Lipitor] 20 mg PO DAILY 03/17/18 05/16/18 Cyanocobalamin (Vitamin B-12) 1,000 mcg PO DAILY 05/16/18 05/16/18 [Vitamin B-12] Etanercept [Enbrel] 50 mg SQ Q7DAYS 05/16/18 05/16/18 Fluticasone Nasal [place] [Flonase 2 spr EA NOSTRIL DAILY 05/16/18 05/16/18 Nasal [place]] Furosemide [Lasix] 20 mg PO DAILY 05/16/18 05/16/18 Isosorbide Mononitrate ER [Imdur] 30 mg PO DAILY 05/16/18 05/16/18 Tadalafil [Cialis] 10 mg PO DAILY 05/16/18 05/16/18 amLODIPine [Norvasc] 5 mg PO BID 05/16/18 05/16/18 cycloSPORINE [Restasis] 1 drop BOTH EYES HS 05/16/18 05/16/18 hydrALAZINE HCL [Apresoline] 50 mg PO DAILY 05/16/18 05/16/18 lisinopriL [Zestril] 10 mg PO DAILY 05/16/18 05/16/18 rOPINIRole HCL [Requip] 0.25 mg PO DAILY 05/16/18 05/16/18 Previous Rx's Medication Instructions Recorded Cholestyramine (with Sugar) 4 gm PO BID@1000,1800 #14 packet 05/19/18 [Questran Packet] Levofloxacin [Levaquin] 250 mg PO DAILY #5 tablet 05/19/18 Loperamide [Imodium] 2 mg PO QID PRN #30 cap 05/19/18 Allergies Allergy/AdvReac Type Severity Reaction Status Date / Time adhesive tape Allergy Rash/Hives Verified 08/28/20 11:02 Penicillins Allergy Swelling Verified 08/28/20 11:02 Review of Systems ROS Statement: Those systems with pertinent positive or pertinent negative responses have been documented in the HPI. ROS Other: All systems not noted in ROS Statement are negative. Past Medical History Past Medical History: Cancer, Diabetes Mellitus, GERD/Reflux, Hyperlipidemia, Hypertension, Memory Impairment, Rheumatoid Arthritis (RA), Thyroid Disorder Additional Past Medical History / Comment(s): States age related memory impairment. 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 Hx right breast cancer had sx and radiaiton tx,, aortic aneurysm(sx done). per [facility] "leaky heart valve" History of Any Multi-Drug Resistant Organisms: None Reported Past Surgical History: Appendectomy, Back Surgery, Breast Surgery, Heart Catheterization, Tonsillectomy, Tubal Ligation Additional Past Surgical History / Comment(s): Surgery for arortic aneurysm, surgery on toes of bilateral feet, ablation done on back X2, had uvula removed.lt carpal tunnel release, beverly cataracts, beverly carotid endarterectomy, partial rt mastectomy. colonoscopy/egd/esophgeal dilations, laminectomy/past pain clinic procedures, bunionectomy beverly feet. Past Anesthesia/Blood Transfusion Reactions: No Reported Reaction Past Psychological History: No Psychological Hx Reported Smoking Status: Former smoker Past Alcohol Use History: Rare Past Drug Use History: None Reported - Past Family History Sister(s) Family Medical History: Cancer Additional Family Medical History / Comment(s): Aneurysm. States 3 of her sisters had cancer. Father Additional Family Medical History / Comment(s): Anerysym Mother Additional Family Medical History / Comment(s): Aneurysm Brother(s) Additional Family Medical History / Comment(s): Aneurysm General Exam - General Exam Comments Initial Comments: Patient has 8 cm skin tear noted on the right lower extremity. Skin is too thin for suturing. Limitations: no limitations General appearance: alert, in no apparent distress Head exam: Present: atraumatic, normal inspection Eye exam: Present: normal appearance, PERRL, EOMI. Absent: scleral icterus, conjunctival injection ENT exam: Present: normal exam, mucous membranes moist Neck exam: Present: normal inspection, full ROM. Absent: tenderness Respiratory exam: Present: normal lung sounds bilaterally. Absent: respiratory distress, wheezes Cardiovascular Exam: Present: regular rate, normal rhythm, normal heart sounds GI/Abdominal exam: Present: soft, normal bowel sounds. Absent: distended, tenderness Extremities exam: Present: tenderness (Tenderness noted to the proximal humerus of the left arm), normal capillary refill (Capillary refill less than 2 seconds in the left upper extremity, radial pulse 2+.), other (Patient able to make okay sign, abduction and abduction of the fingers, and flexion and extension of the wrist. Strength 5 out of 5 in the left hand.). Absent: full ROM Course Vital Signs 08/28/20 09:41 Temperature 97.9 F Pulse Rate 55 L Respiratory 18 Rate Blood Pressure 198/67 O2 Sat by Pulse 99 Oximetry Procedures - Orthopedic Splinting/Casting Injury #1 Side: left Upper Extremity Injury Location: shoulder Upper Extremity Immobilizer: synthetic pre-padded splint (coaptation splint) Medical Decision Making - Medical Decision Making Vitals are stable. Hypertension likely secondary to pain however patient does have a history. X-ray of the left humerus and shoulder shows a minimally displaced left humeral neck fracture. She was given morphine. Neurovascular status intact left upper extremity. Placed in a coaptation splint. Skin tear was repaired. Patient will be sent home with Tylenol 3. He will be referred to orthopedics. She will return for any worsening symptoms. Disposition Clinical Impression: Fx humeral neck, Hypertension Disposition: HOME SELF-CARE Condition: Good Instructions (If sedation given, give patient instructions): Arm Fracture in Adults (ED), Skin Tear (ED) Additional Instructions: Please take Tylenol for pain. If pain is severe take Tylenol 3. Wear splint and keep it dry until you see orthopedics. Follow-up with orthopedics by calling today for an appointment. Steri-Strips on your leg will fall off on their own. Watch for signs of infection and return here for these or any other worsening symptoms. Is patient prescribed a controlled substance at d/c from ED?: No Referrals: Issac Olivia MD [Primary Care Provider] - 1-2 days Landry Thomas MD [STAFF PHYSICIAN] - 1-2 days Time of Disposition: 11:06
[2020-08-28] MEDS ORDERED: ACET/COD 300 MG/30 MG STARTER PACK 6 TAB BTL PO STA (11:23)
[2020-08-28 11:34] VITALS: BP 163/86; PULSE 63
== END 2020-08-28 11:33 | disposition home or self-care (01) ==
LOC: EC 09:32
DX: S42.292A Other displaced fracture of upper end of left humerus, initial encounter for closed fracture (principal); I10 Essential (primary) hypertension; E11.9 Type 2 diabetes mellitus without complications; K21.9 Gastro-esophageal reflux disease without esophagitis; E78.5 Hyperlipidemia, unspecified; M06.9 Rheumatoid arthritis, unspecified; Z79.82 Long term (current) use of aspirin; Z79.4 Long term (current) use of insulin; Z79.890 Hormone replacement therapy; Z79.899 Other long term (current) drug therapy; Z85.3 Personal history of malignant neoplasm of breast; Z87.891 Personal history of nicotine dependence; Z88.0 Allergy status to penicillin; Z91.048 Other nonmedicinal substance allergy status; Z95.5 Presence of coronary angioplasty implant and graft; W18.09XA Striking against other object with subsequent fall, initial encounter; Y93.01 Activity, walking, marching and hiking; Y92.009 Unspecified place in unspecified non-institutional (private) residence as the place of occurrence of the external cause
CPT/HCPCS: 73030; 73060; 96372; 29125; 99283; J2270

== ENCOUNTER 2020-09-07 12:56 | Emergency (ER) | payer MEDICARE ==
[2020-09-07 13:05] VITALS: TEMP 98.1
--- NOTE | 2020-09-07 13:43 | ED ---
General Adult HPI - General Chief complaint: Wound/Laceration Stated complaint: revisit - leg infection Time Seen by Provider: 09/07/20 13:00 Source: patient, RN notes reviewed, old records reviewed Mode of arrival: wheelchair Limitations: no limitations - History of Present Illness Initial comments: This is an 85-year-old female who presents emergency Department complaining of a right lower leg skin tear. Patient states he fell 10 days ago and she is worried it is getting infected because is not healing very well. Patient states she is a diabetic. Patient states she has not had any fevers. Patient denies any erythema or redness. He denies any pussy drainage. Patient denies any other symptoms at this time. Patient is very upset that is not healing well also states she's very angry because of the COVID and being shut down for so long. - Related Data Home Medications Medication Instructions Recorded Confirmed Aspirin [Adult Low Dose Aspirin EC] 81 mg PO HS 07/02/16 09/07/20 Cholecalciferol [Vitamin D3 (25 2,000 unit PO DAILY 07/02/16 09/07/20 Mcg = 1000 Iu)] DULoxetine HCL [Cymbalta] 60 mg PO DAILY 07/02/16 09/07/20 Ferrous Sulfate [Iron (65 MG 325 mg PO DAILY 07/02/16 09/07/20 Elemental)] Levothyroxine Sodium [Synthroid] 150 mcg PO DAILY 07/02/16 09/07/20 Metoprolol Tartrate [Lopressor] 50 mg PO BID 07/02/16 09/07/20 Omeprazole 20 mg PO DAILY 07/02/16 09/07/20 Atorvastatin [Lipitor] 20 mg PO HS 03/17/18 09/07/20 Cyanocobalamin (Vitamin B-12) 1,000 mcg PO DAILY 05/16/18 09/07/20 [Vitamin B-12] Etanercept [Enbrel] 50 mg SQ WE 05/16/18 09/07/20 Furosemide [Lasix] 40 mg PO DAILY 05/16/18 09/07/20 Tadalafil [Cialis] 10 mg PO DAILY 05/16/18 09/07/20 amLODIPine [Norvasc] 5 mg PO BID@1200,2100 05/16/18 09/07/20 hydrALAZINE HCL [Apresoline] 50 mg PO QID 05/16/18 09/07/20 Allopurinol [Zyloprim] 100 mg PO DAILY 08/28/20 09/07/20 Insulin Detemir [Levemir Flextouch] 20 units SQ HS 08/28/20 09/07/20 busPIRone HCl [Buspar] 5 mg PO BID 08/28/20 09/07/20 predniSONE 5 mg PO DAILY 08/28/20 09/07/20 Previous Rx's Medication Instructions Recorded Loperamide [Imodium] 2 mg PO QID PRN #30 cap 05/19/18 Allergies Allergy/AdvReac Type Severity Reaction Status Date / Time adhesive tape Allergy Rash/Hives Verified 09/07/20 14:22 Penicillins Allergy Swelling Verified 09/07/20 14:22 Review of Systems ROS Statement: Those systems with pertinent positive or pertinent negative responses have been documented in the HPI. ROS Other: All systems not noted in ROS Statement are negative. Past Medical History Past Medical History: Cancer, Diabetes Mellitus, GERD/Reflux, Hyperlipidemia, Hypertension, Memory Impairment, Rheumatoid Arthritis (RA), Thyroid Disorder Additional Past Medical History / Comment(s): States age related memory impairme nt. 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 Hx right breast cancer had sx and radiaiton tx,, aortic aneurysm(sx done). per [facility] "leaky heart valve" History of Any Multi-Drug Resistant Organisms: None Reported Past Surgical History: Appendectomy, Back Surgery, Breast Surgery, Heart Catheterization, Tonsillectomy, Tubal Ligation Additional Past Surgical History / Comment(s): Surgery for arortic aneurysm, surgery on toes of bilateral feet, ablation done on back X2, had uvula removed.l t carpal tunnel release, beverly cataracts, beverly carotid endarterectomy, partial rt mastectomy. colonoscopy/egd/esophgeal dilations, laminectomy/past pain clinic procedures, bunionectomy beverly feet. Past Anesthesia/Blood Transfusion Reactions: No Reported Reaction Past Psychological History: No Psychological Hx Reported Smoking Status: Former smoker Past Alcohol Use History: Rare Past Drug Use History: None Reported - Past Family History Sister(s) Family Medical History: Cancer Additional Family Medical History / Comment(s): Aneurysm. States 3 of her sisters had cancer. Father Additional Family Medical History / Comment(s): Anerysym Mother Additional Family Medical History / Comment(s): Aneurysm Brother(s) Additional Family Medical History / Comment(s): Aneurysm General Exam - General Exam Comments Initial Comments: GENERAL Patient is well-developed and well-nourished. Patient is in mild distress. EYES Patient's pupils are equal and round. Extraocular motion is intact SKIN Unremarkable NEURO The patient is alert and oriented 3 PYSCH Patient has normal interpersonal interactions. MUSCULOSKELETAL Patient's right leg has a skin tear that is healing on 2-3 edges the other edge has some necrotic skin tissue and some exposure to the underlying tissue. There is no redness or swelling there is no pus coming from the wound. Limitations: no limitations Course Vital Signs 09/07/20 12:59 Temperature 98.1 F Pulse Rate 63 Respiratory 16 Rate Blood Pressure 198/70 O2 Sat by Pulse 99 Oximetry Medical Decision Making - Medical Decision Making I suggested the patient follow-up with [facility]. patient stated that she would not go anywhere until she sees her own primary medical care doctor. There are no signs of infection in the wound white count is normal I will send the patient home to follow-up with a primary medical care doctor. - Lab Data Result diagrams: 09/07/20 14:18 09/07/20 14:18 Lab Results 09/07/20 09/07/20 Range/Units 14:18 14:18 WBC 8.2 (3.8-10.6) k/uL RBC 3.56 L (3.80-5.40) m/uL Hgb 11.1 L (11.4-16.0) gm/dL Hct 34.0 (34.0-46.0) % MCV 95.5 (80.0-100.0) fL MCH 31.3 (25.0-35.0) pg MCHC 32.7 (31.0-37.0) g/dL RDW 15.5 (11.5-15.5) % Plt Count 180 (150-450) k/uL MPV 8.3 Neutrophils % 62 % Lymphocytes % 25 % Monocytes % 6 % Eosinophils % 3 % Basophils % 1 % Neutrophils # 5.1 (1.3-7.7) k/uL Lymphocytes # 2.1 (1.0-4.8) k/uL Monocytes # 0.5 (0-1.0) k/uL Eosinophils # 0.3 (0-0.7) k/uL Basophils # 0.1 (0-0.2) k/uL Sodium 140 (137-145) mmol/L Potassium 3.7 (3.5-5.1) mmol/L Chloride 99 (98-107) mmol/L Carbon Dioxide 32 H (22-30) mmol/L Anion Gap 9 mmol/L BUN 23 H (7-17) mg/dL Creatinine 0.93 (0.52-1.04) mg/dL Est GFR (CKD-EPI)AfAm 65 (>60 ml/min/1.73 sqM) Est GFR (CKD-EPI)NonAf 57 (>60 ml/min/1.73 sqM) Glucose 233 H (74-99) mg/dL Calcium 9.6 (8.4-10.2) mg/dL Total Bilirubin 0.7 (0.2-1.3) mg/dL AST 21 (14-36) U/L ALT 12 (4-34) U/L Alkaline Phosphatase 79 (38-126) U/L Total Protein 6.4 (6.3-8.2) g/dL Albumin 3.8 (3.5-5.0) g/dL Disposition Clinical Impression: Healing wound Disposition: HOME SELF-CARE Condition: Good Instructions (If sedation given, give patient instructions): Wound Healing and Your Diet (ED) Is patient prescribed a controlled substance at d/c from ED?: No Referrals: Issac Olivia MD [Primary Care Provider] - 1-2 days Time of Disposition: 15:00
[2020-09-07 14:48] LABS: Basophils # (A) 0.1 k/uL (0-0.2); Basophils % (A) 1 %; Eosinophils # (A) 0.3 k/uL (0-0.7); Eosinophils % (A) 3 %; HGB 11.1 gm/dL (11.4-16.0); Lymphocytes # (A) 2.1 k/uL (1.0-4.8); Lymphocytes % (A) 25 %; MCH 31.3 pg (25.0-35.0); MCHC 32.7 g/dL (31.0-37.0); MCV 95.5 fL (80.0-100.0); Mean Platelet Volume 8.3; Monocytes # (A) 0.5 k/uL (0-1.0); Monocytes % (A) 6 %; Neutrophils # (A) 5.1 k/uL (1.3-7.7); Neutrophils % (A) 62 %; Platelet Count 180 k/uL (150-450); RBC 3.56 m/uL (3.80-5.40); RDW 15.5 % (11.5-15.5); WBC 8.2 k/uL (3.8-10.6)
[2020-09-07 14:51] LABS: Albumin 3.8 g/dL (3.5-5.0); Calcium 9.6 mg/dL (8.4-10.2); Potassium 3.7 mmol/L (3.5-5.1); Total Bilirubin 0.7 mg/dL (0.2-1.3); Total Protein 6.4 g/dL (6.3-8.2)
[2020-09-07 15:48] VITALS: BP 183/60; PULSE 60; RESP 18
== END 2020-09-07 16:07 | disposition home or self-care (01) ==
LOC: EC 12:56
DX: S81.811A Laceration without foreign body, right lower leg, initial encounter (principal); E11.36 Type 2 diabetes mellitus with diabetic cataract; E78.5 Hyperlipidemia, unspecified; I10 Essential (primary) hypertension; K21.9 Gastro-esophageal reflux disease without esophagitis; M06.9 Rheumatoid arthritis, unspecified; E07.9 Disorder of thyroid, unspecified; W19.XXXA Unspecified fall, initial encounter; Z79.4 Long term (current) use of insulin; Z79.52 Long term (current) use of systemic steroids; Z87.891 Personal history of nicotine dependence; Z85.3 Personal history of malignant neoplasm of breast; Z90.12 Acquired absence of left breast and nipple
CPT/HCPCS: 36415; 80053; 85025; 87040; 99283

== ENCOUNTER 2021-04-14 17:46 | Observation (INO) | payer MEDICARE ==
[2021-04-14] MEDS ORDERED: SODIUM CHLORIDE 0.9% 1,000 ML IV ONE (19:14)
--- NOTE | 2021-04-14 19:14 | ED ---
General Adult HPI - General Chief complaint: Altered Mental Status Stated complaint: neuro/mental health Time Seen by Provider: 04/14/21 18:00 Source: patient, EMS, RN notes reviewed, old records reviewed Mode of arrival: EMS Limitations: no limitations - History of Present Illness Initial comments: This is an 86-year-old female who presents emergency Department from [facility] the patient arrived here because stated she was too weak to assist even going to the bathroom and she was also significantly more tired than normal to the point where she wasn't cooperating and not understanding what he needed to do to help her go to the bathroom. Patient was brought to [facility] and staff worked the patient up and the ER doc attempted to admit her there but the primary medical care doctor wanted her transferred here and be admitted to our hospital. Patient has no complaints currently. still think she is too weak to go home at this time. - Related Data Home Medications Medication Instructions Recorded Confirmed Aspirin [Adult Low Dose Aspirin EC] 81 mg PO HS 07/02/16 09/07/20 Cholecalciferol [Vitamin D3 (25 2,000 unit PO DAILY 07/02/16 09/07/20 Mcg = 1000 Iu)] DULoxetine HCL [Cymbalta] 60 mg PO DAILY 07/02/16 09/07/20 Ferrous Sulfate [Iron (65 MG 325 mg PO DAILY 07/02/16 09/07/20 Elemental)] Levothyroxine Sodium [Synthroid] 150 mcg PO DAILY 07/02/16 09/07/20 Metoprolol Tartrate [Lopressor] 50 mg PO BID 07/02/16 09/07/20 Omeprazole 20 mg PO DAILY 07/02/16 09/07/20 Atorvastatin [Lipitor] 20 mg PO HS 03/17/18 09/07/20 Cyanocobalamin (Vitamin B-12) 1,000 mcg PO DAILY 05/16/18 09/07/20 [Vitamin B-12] Etanercept [Enbrel] 50 mg SQ WE 05/16/18 09/07/20 Furosemide [Lasix] 40 mg PO DAILY 05/16/18 09/07/20 Tadalafil [Cialis] 10 mg PO DAILY 05/16/18 09/07/20 amLODIPine [Norvasc] 5 mg PO BID@1200,2100 05/16/18 09/07/20 hydrALAZINE HCL [Apresoline] 50 mg PO QID 05/16/18 09/07/20 Allopurinol [Zyloprim] 100 mg PO DAILY 08/28/20 09/07/20 Insulin Detemir [Levemir Flextouch] 20 units SQ HS 08/28/20 09/07/20 busPIRone HCl [Buspar] 5 mg PO BID 08/28/20 09/07/20 predniSONE 5 mg PO DAILY 08/28/20 09/07/20 Previous Rx's Medication Instructions Recorded Loperamide [Imodium] 2 mg PO QID PRN #30 cap 05/19/18 Allergies Allergy/AdvReac Type Severity Reaction Status Date / Time adhesive tape Allergy Rash/Hives Verified 04/14/21 18:02 Penicillins Allergy Swelling Verified 04/14/21 18:02 Review of Systems ROS Statement: Those systems with pertinent positive or pertinent negative responses have been documented in the HPI. ROS Other: All systems not noted in ROS Statement are negative. Past Medical History Past Medical History: Cancer, Diabetes Mellitus, GERD/Reflux, Hyperlipidemia, Hypertension, Memory Impairment, Rheumatoid Arthritis (RA), Thyroid Disorder Additional Past Medical History / Comment(s): States age related memory impairment. 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 Hx right breast cancer had sx and radiaiton tx,, aortic aneurysm(sx done). per [facility] "leaky heart valve" History of Any Multi-Drug Resistant Organisms: None Reported Past Surgical History: Appendectomy, Back Surgery, Breast Surgery, Heart Catheterization, Tonsillectomy, Tubal Ligation Additional Past Surgical History / Comment(s): Surgery for arortic aneurysm, surgery on toes of bilateral feet, ablation done on back X2, had uvula removed.lt carpal tunnel release, beverly cataracts, beverly carotid endarterectomy, partial rt mastectomy. colonoscopy/egd/esophgeal dilations, laminectomy/past pain clinic procedures, bunionectomy beverly feet. Past Anesthesia/Blood Transfusion Reactions: No Reported Reaction Past Psychological History: No Psychological Hx Reported Smoking Status: Former smoker Past Alcohol Use History: Rare Past Drug Use History: None Reported - Past Family History Sister(s) Family Medical History: Cancer Additional Family Medical History / Comment(s): Aneurysm. States 3 of her sisters had cancer. Father Additional Family Medical History / Comment(s): Anerysym Mother Additional Family Medical History / Comment(s): Aneurysm Brother(s) Additional Family Medical History / Comment(s): Aneurysm General Exam - General Exam Comments Initial Comments: GENERAL: Patient is well-developed and well-nourished. Patient is nontoxic and well- hydrated and is in mild distress. ENT: Neck is soft and supple. No significant lymphadenopathy is noted. Oropharynx is clear. Moist mucous membranes. Neck has full range of motion without eliciting any pain. EYES: The sclera were anicteric and conjunctiva were pink and moist. Extraocular movements were intact and pupils were equal round and reactive to light. Eyelids were unremarkable. PULMONARY: Unlabored respirations. Good breath sounds bilaterally. No audible rales rhonchi or wheezing was noted. CARDIOVASCULAR: There is a regular rate and rhythm without any murmurs gallops or rubs. ABDOMEN: Soft and nontender with normal bowel sounds. SKIN: Skin is clear with no lesions or rashes and otherwise unremarkable. NEUROLOGIC: Patient is alert and oriented x3. Cranial nerves II through XII are grossly intact. Motor and sensory are also intact. Normal speech, volume and content. Symmetrical smile. MUSCULOSKELETAL: Normal extremities with adequate strength and full range of motion. LYMPHATICS: No significant lymphadenopathy is noted PSYCHIATRIC: Normal psychiatric evaluation. Limitations: no limitations Course Vital Signs 04/14/21 17:59 Temperature 98.7 F Pulse Rate 82 Respiratory 18 Rate Blood Pressure 204/108 O2 Sat by Pulse 99 Oximetry Medical Decision Making - Medical Decision Making I spoke with Dr. Olivia wanted her neurological and psychiatric consult patient will be admitted to his service and I will put in the consult. Disposition Clinical Impression: Generalized weakness, Altered mental status, Depression Disposition: ADMITTED IP TO THIS HOSP Referrals: Issac Olivia MD [Primary Care Provider] - 1-2 days Time of Disposition: 19:14
[2021-04-14] MEDS ORDERED: ALPRAZolam 0.25 MG TAB PO PRN (20:13)
[2021-04-14] MEDS ORDERED: ASPIRIN 81 MG PO SCH (21:00)
[2021-04-14] MEDS ORDERED: INSULIN DETEMIR (LEVEMIR) 100 UNIT/ML SYR SQ SCH (21:00)
[2021-04-14] MEDS ORDERED: amLODIPine 10 MG TAB PO SCH ×2 (21:00)
[2021-04-14] MEDS ORDERED: amLODIPine 5 MG TAB PO SCH (21:00)
[2021-04-14] MEDS ORDERED: ATORVASTATIN 20 MG TAB PO SCH (21:00)
[2021-04-14 21:41] LABS: Appearance,Urine Clear (Clear); Bilirubin,Urine Negative (Negative); Blood,Urine Negative (Negative); Color,Urine Yellow; Glucose,Urine (UA) Negative (Negative); Ketones,Urine 1+ (Negative); Leukocyte Esterase,Urine Negative (Negative); Nitrite,Urine Negative (Negative); Protein,Urine Negative (Negative); Specific Gravity,Urine 1.011 (1.001-1.035)
[2021-04-14] MEDS ORDERED: hydrALAZINE HCL 50 MG TAB PO SCH (22:00)
[2021-04-14] MEDS: hydrALAZINE HCL 25 MG TAB PO SCH (23:39)
[2021-04-14] MEDS: lisinopriL 10 MG TAB PO SCH (23:40)
[2021-04-14] MEDS: busPIRone HCl 5 MG TAB PO SCH (23:40)
[2021-04-14] MEDS: METOPROLOL TARTRATE 50 MG TAB PO SCH (23:40)
[2021-04-15] MEDS ORDERED: LEVOTHYROXINE 75 MCG TAB PO SCH (06:30)
[2021-04-15] MEDS ORDERED: PANTOPRAZOLE 40 MG TABLET PO SCH (07:30)
[2021-04-15 07:40] LABS: Glucose,Whole Blood 143 mg/dL (75-99)
[2021-04-15] MEDS: hydrALAZINE HCL 25 MG TAB PO SCH (08:13)
[2021-04-15] MEDS: METOPROLOL TARTRATE 50 MG TAB PO SCH (08:13)
[2021-04-15] MEDS: busPIRone HCl 5 MG TAB PO SCH (08:13)
[2021-04-15] MEDS: lisinopriL 10 MG TAB PO SCH (08:14)
[2021-04-15 08:23] VITALS: TEMP 97.8
--- NOTE | 2021-04-15 08:55 | CT ---
EXAMINATION TYPE: CT brain cspine wo con DATE OF EXAM: 04/15/2021 COMPARISON: CT 12/09/2019 HISTORY: AMS, Generalized weakness CT DLP: 1280.7 mGycm Automated exposure control for dose reduction was used. TECHNIQUE: CT scan of the head and cervical spine are performed without contrast. FINDINGS: There is no acute intracranial hemorrhage, mass effect, or midline shift identified. The ventricles and sulci are within normal limits in size. There are cerebral vascular calcifications pr esent. Cortical atrophy is noted. Periventricular white matter shows patchy low attenuation, low-atte nuation in the basal ganglia again noted which may be related to lacunar infarcts. The globes are int act and the visualized sinuses are clear. Cervical spine is visualized in its entirety from C1 through upper thoracic levels and demonstrates s table alignment without evidence of acute fracture or dislocation. There is multilevel spondylosis, loss of disc height at intervertebral levels consistent with disc desiccation and degenerative disc d isease Prevertebral soft tissue appears within normal limits. The C1-C2 articulation is unremarkable . Upper chest shows some layering of probable pleural effusions, emphysematous changes. There is mult ilevel foraminal encroachment, facet arthropathy. Aorta is ectatic measuring 3.5 cm. IMPRESSION: 1. There is no acute fracture or dislocation evident in the cervical spine. 2. No acute intracranial hemorrhage, mass effect, or midline shift is seen. 3. Additional findings above
[2021-04-15] MEDS ORDERED: CYANOCOBALAMIN 500 MCG TAB PO SCH (09:00)
[2021-04-15] MEDS ORDERED: DULoxetine HCL 60 MG CAPSULE.DR PO SCH (09:00)
[2021-04-15] MEDS ORDERED: CHOLECALCIFEROL 25 MCG (1000 IU) TABLET PO SCH (09:00)
[2021-04-15] MEDS ORDERED: allopurinoL 100 MG TAB PO SCH (09:00)
[2021-04-15] MEDS ORDERED: predniSONE 5 MG TAB PO SCH (09:00)
[2021-04-15] MEDS ORDERED: FERROUS SULFATE 325 MG TAB PO SCH (09:00)
[2021-04-15] MEDS ORDERED: FLUoxetine HCL 20 MG CAP PO SCH (09:00)
[2021-04-15] MEDS ORDERED: FUROSEMIDE 40 MG TAB PO SCH ×2 (09:00)
[2021-04-15] MEDS ORDERED: POTASSIUM CHLORIDE ER 10 MEQ TAB.ER.PRT PO SCH (09:00)
[2021-04-15] MEDS ORDERED: FOLIC ACID 1 MG TAB PO SCH (09:00)
[2021-04-15] MEDS ORDERED: MAGNESIUM OXIDE 400 MG TAB PO SCH (09:00)
[2021-04-15] MEDS ORDERED: NON FORMULARY DRUG (Tadalafil [Cialis] 10 MG Tablet) PO SCH (09:00)
--- NOTE | 2021-04-15 09:04 | P.CNNES ---
History of Present Illness Consult date: 04/15/21 Requesting physician: Trevon Le Reason for Consult: altered mental status History of Present Illness: This is an 86-year-old woman with medical history of bilateral carotid endarterectomy about 20 years ago, history of right breast cancer status post radiation and the partial right mastectomy in late , chronic lower back pain s/p laminectomy and abalation, diabetes mellitus, hypertension, rheumatoid arthritis, hypothyroidism who presented emergency department on 04/14/2021 from [facility] because of generalized weakness and fatigue. According to the patient's she stated that her blood pressure has been uncontrolled at home and she cannot tell me for how long but dated that the her and to take her blood pressure and is elevated and could not tell me how much it was elevated. She said that she's been having generalized weakness and fatigue for at least one year. She denied any focal weakness, numbness, any difficulty getting her words out, any new visual disturbance, denies any new falls. She said that she has history of falls in the last fall she had was in August 2020 inch uses a cane as well as a walker. Patient denies of any altered mental status. So because of her elevated blood pressure and feeling short of breath she ended up going to outside facility at [facility]. There her blood pressure got as high as 201/162. At outside facility dated CT of the head and was reported as atrophy with chronic appearing periventricular white matter ischemic changes. The ED physician attempted to admit her at outside facility but that the primary medical care doctor wanted her to be transferred and admitted to our facility. Upon speaking with the patient ED nurse, she stated that the patient did not seem altered and did not seem confused and was walking unassisted without any issues. Some of the patient on medication consist of aspirin 81 mg, Lipitor 20 mg, folic acid 1 mg, Synthroid, prednisone 5 mg daily, metoprolol, potassium, Levemir, hydralazine, Lasix, lisinopril, amlodipine, old result, Prozac, allopurinol, ferrous sulfate. Some other workup in our facility consisted of: Initial vital signs his blood pressure of 204/108, heart rate of 82, temperature of 98.7 Fahrenheit oral, respiratory of 18 and pulse ox of 99% room air. The repeated blood pressure was 185/77 and most recent one is 131/51. POC glucose is 143 Urinalysis is negative for urinary tract infection Hood virus per chart not detected. Review of Systems Review of system: The 12 point system was reviewed and apparent positive and negative per HPI. Past Medical History Past Medical History: Cancer, Diabetes Mellitus, GERD/Reflux, Hyperlipidemia, Hypertension, Memory Impairment, Rheumatoid Arthritis (RA), Thyroid Disorder Additional Past Medical History / Comment(s): States age related memory impairment. 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 Hx right breast cancer had sx and radiaiton tx,, aortic aneurysm(sx done). [facility] "leaky heart valve" History of Any Multi-Drug Resistant Organisms: None Reported Past Surgical History: Appendectomy, Back Surgery, Breast Surgery, Heart Catheterization, Tonsillectomy, Tubal Ligation Additional Past Surgical History / Comment(s): Surgery for arortic aneurysm, surgery on toes of bilateral feet, ablation done on back X2, had uvula removed.lt carpal tunnel release, beverly cataracts, beverly carotid endarterectomy, partial rt mastectomy. colonoscopy/egd/esophgeal dilations, laminectomy/past pain clinic procedures, bunionectomy beverly feet. Past Anesthesia/Blood Transfusion Reactions: No Reported Reaction Past Psychological History: No Psychological Hx Reported Smoking Status: Former smoker Past Alcohol Use History: Rare Past Drug Use History: None Reported - Past Family History Sister(s) Family Medical History: Cancer Additional Family Medical History / Comment(s): Aneurysm. States 3 of her sisters had cancer. Father Additional Family Medical History / Comment(s): Anerysym Mother Additional Family Medical History / Comment(s): Aneurysm Brother(s) Additional Family Medical History / Comment(s): Aneurysm Medications and Allergies Home Medications Medication Instructions Recorded Confirmed Type Aspirin [Adult Low Dose Aspirin EC] 81 mg PO HS 07/02/16 04/14/21 History Ferrous Sulfate [Iron (65 MG 325 mg PO BID 07/02/16 04/14/21 History Elemental)] Levothyroxine Sodium [Synthroid] 150 mcg PO DAILY 07/02/16 04/14/21 History Metoprolol Tartrate [Lopressor] 50 mg PO BID 07/02/16 04/14/21 History Omeprazole 20 mg PO DAILY 07/02/16 04/14/21 History Atorvastatin [Lipitor] 20 mg PO HS 03/17/18 04/14/21 History Etanercept [Enbrel] 50 mg SQ WE 05/16/18 04/14/21 History Allopurinol [Zyloprim] 100 mg PO DAILY 08/28/20 04/14/21 History Insulin Detemir [Levemir Flextouch] 17 units SQ HS 08/28/20 04/14/21 History predniSONE 5 mg PO DAILY 08/28/20 04/14/21 History FLUoxetine HCL [PROzac] 20 mg PO DAILY 04/14/21 04/14/21 History Folic Acid 1 mg PO DAILY 04/14/21 04/14/21 History Furosemide [Lasix] 40 mg PO BID 04/14/21 04/14/21 History Magnesium Oxide 400 mg PO DAILY 04/14/21 04/14/21 History Potassium Chloride [Klor-Con 10 ER] 10 meq PO DAILY 04/14/21 04/14/21 History amLODIPine [Norvasc] 10 mg PO HS 04/14/21 04/14/21 History hydrALAZINE HCL [Apresoline] 75 mg PO QID 04/14/21 04/14/21 History lisinopriL 10 mg PO BID 04/14/21 04/14/21 History Allergies Allergy/AdvReac Type Severity Reaction Status Date / Time adhesive tape Allergy Rash/Hives Verified 04/14/21 19:35 Penicillins Allergy Swelling Verified 04/14/21 19:35 Physical Examination - Vital Signs Vital Signs: Vital Signs Temp Pulse Resp BP Pulse Ox 04/15/21 04:24 54 L 16 131/51 96 04/14/21 20:19 81 19 171/73 98 04/14/21 19:55 83 20 185/77 97 04/14/21 17:59 98.7 F 82 18 204/108 99 Intake and Output 04/14/21 04/15/21 04/15/21 22:59 06:59 14:59 Other: Weight 60.691 kg GENERAL: The patient is lying in bed and is not in acute distress. CHEST: The heart rate is regular rate rhythm. No murmurs to auscultation. LUNG: Clear to auscultation bilaterally no wheezing noted throughout. Not labored breathing. ABDOMEN/GI: Bowel sounds present in all 4 quadrants. No tenderness to palpation throughout. NEUROLOGICAL: Higher mental function: The patient is awake, alert, oriented to self, place and time. She is able to tell me the current state we are in, the capital of [place] and the name of current President. Patient is following commands. No aphasia and no neglect. Cranial nerves: The pupils are round, equal and reactive to light and accommodation. Visual leach are full to confrontation throughout. Extraocular movement is intact no nystagmus is noted. Facial sensation is normal to touch throughout. The facial strength is normal throughout. Hearing is moderately decreased bilaterally to hand rub. Tongue is midline and moved [id number] without any difficulty. No dysarthria is noted. Shoulder shrug is normal bilaterally. Motor: Gait is slow and unsteady requiring one person assist (but not swaying toward right or left. Baseline uses cane and walker). The strength is 5 over 5 throughout. Normal tone and bulk. Cerebellum: Normal finger to nose bilaterally. Sensation: Sensation is normal to touch throughout. Reflexes (right/left): 2+ throughout upper and 1+ lowers. Plantars are mute bilaterally. Results - Laboratory Findings Abnormal Lab Findings: Abnormal Labs 04/14/21 04/15/21 21:16 07:38 POC Glucose (mg/dL) 143 H Urine Ketones 1+ H Assessment and Plan Assessment: Patient does not have altered mental status on current examination to myself or nurse. Uncontrolled hypertension can cause hypertensive encephalopathy. Uncontrolled hypertension on presentation was 204/108 (at outside facility was as high as 201/162 and according to patient her blood pressure at home is uncontrolled)--currently improving Generalized weakness possibly due to uncontrolled hypertension Reported underlying "memory impairement" in medical records. History of bilateral carotid endarterectomy about 20 years ago History of right breast cancer status post radiation with partial right mastectomy in late Chronic lower back pain s/p laminectomy and abalation, History of falls and last fall was 08/2020 (uses cane and walker) Diabetes mellitus Rheumatoid arthritis Hypothyroidism Remote history of tobacco use Plan: I ordered CT of the brain and CT cervical spine. Ordered TSH, vitamin B12, folate level. Hemoglobin A1c is ordered. An EEG is not warrented at this time. Ordered 2D echo. Patient is already on folic acid 1 mg and vitamin B-12 1000 g daily started by the primary team. Consulted physical therapy and occupation therapy Neurochecks On cardiac monitoring. Psychiatry is consulted for depression. Will defer the hypertension management to the primary team. We'll defer the rest of the medical management to the primary team. The plan is discussed with the patient and her nurse. Thank you for the consultation. Aj Ward M.D. Neuro-hospitalist Time with Patient: Greater than 30
[2021-04-15 09:07] LABS: Basophils # (A) 0.01 X 10*3/uL (0.00-0.10); Basophils % (A) 0.1 %; Eosinophils # (A) 0.13 X 10*3/uL (0.04-0.35); Eosinophils % (A) 1.3 %; HCT 36.1 % (37.2-46.3); HGB 11.3 g/dL (12.0-15.0); Lymphocytes # (A) 1.76 X 10*3/uL (0.90-5.00); Lymphocytes % (A) 17.5 %; MCH 29.8 pg (27.0-32.0); MCHC 31.3 g/dL (32.0-37.0); MCV 95.3 fL (80.0-97.0); Mean Platelet Volume 11.5 fL (9.5-12.2); Monocytes # (A) 0.81 X 10*3/uL (0.20-1.00); Monocytes % (A) 8.1 %; Neutrophils # (A) 7.18 X 10*3/uL (1.80-7.70); Neutrophils % (A) 71.6 %; Platelet Count 167 X 10*3/uL (140-440); RBC 3.79 X 10*6/uL (4.10-5.20); RDW 16.1 % (11.5-14.5); WBC 10.03 X 10*3/uL (4.50-10.00)
[2021-04-15] MEDS ORDERED: INSULIN ASPART (NovoLOG) 100 UNIT/ML VIAL SQ SCH (12:30)
--- NOTE | 2021-04-15 12:33 | ECHOF ---
Referral Reason:shortness of breath MEASUREMENTS -------- HEIGHT: 149.9 cm WEIGHT: 55.3 kg BP: RVIDd: 2.8 cm (< 3.3) IVSd: 1.1 cm (0.6 - 1.1) LVIDd: 4.0 cm (3.9 - 5.3) LVPWd: 1.0 cm (0.6 - 1.1) IVSs: 1.7 cm LVIDs: 2.2 cm LVPWs: 1.5 cm LA Diam: 2.9 cm (2.7 - 3.8) Ao Diam: 2.6 cm (2.0 - 3.7) AV Cusp: 1.5 cm (1.5 - 2.6) MV EXCURSION: 11.844 mm (> 18.000) MV EF SLOPE: 29 mm/s (70 - 150) EPSS: 0.3 cm MV E Jake: 0.98 m/s MV DecT: 296 ms MV A Jake: 1.27 m/s MV E/A Ratio: 0.77 AV maxP.29 mmHg AV meanP.28 mmHg AR PHT: 690 ms RAP: 5.00 mmHg RVSP: 28.58 mmHg FINDINGS -------- Sinus rhythm. This was a technically adequate study. The left ventricular size is normal. There is borderline concentric left ventricular hypertrophy. Overall left ventricular systolic function is normal with, an EF between 60 - 65 %. The right ventricle is normal in size. The left atrium is normal in size. The right atrium is normal in size. Interatrial and interventricular septum intact. There is mild to moderate aortic valve sclerosis. There is moderate aortic regurgitation. There i s mild aortic stenosis present. The maximum velocity across the aortic valve is 2.46m/s. Peak/jose n gradient across the Aortic Valve is 24.29mmHg / 12.28mmHg. Mild mitral annular calcification present. Mild mitral regurgitation is present. Moderate tricuspid regurgitation present. Right ventricular systolic pressure is normal at < 35 mmH g. Trace/mild (physiologic) pulmonic regurgitation. The aortic root size is normal. Normal inferior vena cava with normal inspiratory collapse consistent with estimated right atrial pre ssure of 5 mmHg. There is no pericardial effusion. CONCLUSIONS -------- 1. The left ventricular size is normal. 2. There is borderline concentric left ventricular hypertrophy. 3. Overall left ventricular systolic function is normal with, an EF between 60 - 65 %. 4. There is mild to moderate aortic valve sclerosis. 5. There is moderate aortic regurgitation. 6. There is mild aortic stenosis present. 7. The maximum velocity across the aortic valve is 2.46m/s. 8. Peak/mean gradient across the Aortic Valve is 24.29mmHg / 12.28mmHg. 9. Mild mitral annular calcification present. 10. Mild mitral regurgitation is present. 11. Moderate tricuspid regurgitation present. 12. Trace/mild (physiologic) pulmonic regurgitation. 13. There is no pericardial effusion. SENIOR MAINTENANCE MACHINIST: Archana Tapia RDCS
--- NOTE | 2021-04-15 14:10 | P.CN ---
Psychiatric Consult - . Consult date: 04/15/21 Consult:: 04/15/21 14:09 IDENTIFYING DATA: This patient is a , retired, 86-year-old female who was admitted for increased weakness HISTORY OF PRESENT ILLNESS: The patient presented to the hospital on 04/15/2021, after initially presenting at the [facility]. The patient was recommended by her primary care physician to go to [facility] instead. Psychiatry has been consulted for depression. Major depressive disorder. She does report occasional episodes of feeling "sad about not seeing other people and the masks and changes throughout the world" but is not endorsing any organic symptoms of depression. She denies any significant symptoms of anhedonia, low motivation, decreased appetite, hopelessness, helplessness, change in hygiene, or suicidal or homicidal ideation, intention, and/or plan. The patient vehemently denies any prior attempts at suicide. The patient does report that she has low energy but states that her "spirit is always willing." The patient denies any significant symptoms of bipolar disorder. She reports no periods of excessive energy, mood lability, racing thoughts, or grandiosity. The patient does not endorse any significant symptoms of psychosis. She reports no auditory or visual hallucinations. She denies any paranoia or other delusions. The patient is currently on a regimen of Prozac and BuSpar for management of depression and anxiety. She states that she was previously on Cymbalta for management of this depression. Despite her being prescribed these medications, obtaining the patient history revealed no significant symptoms of organic dep ression. It appears that the patient is primarily concerned with ongoing psychosocial stressors but has had no symptoms consistent with major depressive disorder. PAST PSYCHIATRIC HISTORY: The patient reports that she has a history of depression and anxiety. She reports that she has been seeing her primary care physician for outpatient psychiatric treatment. She denies any inpatient psychiatric care history. She denies any prior attempts at suicide. She is able to recall Cymbalta, Prozac, and BuSpar as psychotropic medications she has trialed. PAST MEDICAL HISTORY: Past Medical History: Cancer, Diabetes Mellitus, GERD/Reflux, Hyperlipidemia, Hypertension, Memory Impairment, Rheumatoid Arthritis (RA), Thyroid Disorder Additional Past Medical History / Comment(s): States age related memory impairment. 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 Hx right breast cancer had sx and radiaiton tx,, aortic aneurysm(sx done). per [facility] "leaky heart valve" History of Any Multi-Drug Resistant Organisms: None Reported Past Surgical History: Appendectomy, Back Surgery, Breast Surgery, Heart Catheterization, Tonsillectomy, Tubal Ligation Additional Past Surgical History / Comment(s): Surgery for arortic aneurysm, surgery on toes of bilateral feet, ablation done on back X2, had uvula removed.lt carpal tunnel release, beverly cataracts, beveryl carotid endarterectomy, partial rt mastectomy. colonoscopy/egd/esophgeal dilations, laminectomy/past pain clinic procedures, bunionectomy beverly feet. Past Anesthesia/Blood Transfusion Reactions: No Reported Reaction Past Psychological History: No Psychological Hx Reported Smoking Status: Former smoker Past Alcohol Use History: Rare Past Drug Use History: None Reported Vital Signs Temp 97.8 F 04/15/21 08:17 Pulse 55 L 04/15/21 08:17 Resp 16 04/15/21 08:17 BP 130/52 04/15/21 08:17 Pulse Ox 98 04/15/21 08:17 Intake & Output 04/14/21 04/15/21 04/15/21 18:59 06:59 18:59 Weight 60.691 kg Laboratory Results WBC 10.03 X 10*3/uL (4.50-10.00) H 04/15/21 03:56 RBC 3.79 X 10*6/uL (4.10-5.20) L 04/15/21 03:56 Hgb 11.3 g/dL (12.0-15.0) L 04/15/21 03:56 Hct 36.1 % (37.2-46.3) L 04/15/21 03:56 MCV 95.3 fL (80.0-97.0) 04/15/21 03:56 MCH 29.8 pg (27.0-32.0) 04/15/21 03:56 MCHC 31.3 g/dL (32.0-37.0) L 04/15/21 03:56 RDW 16.1 % (11.5-14.5) H 04/15/21 03:56 Plt Count 167 X 10*3/uL (140-440) 04/15/21 03:56 MPV 11.5 fL (9.5-12.2) 04/15/21 03:56 Immature Gran % (Auto) 1.4 % 04/15/21 03:56 Absolute Nucleated RBC 0 X 10*3/uL (0.00-0.00) 04/15/21 03:56 Neutrophils % 71.6 % 04/15/21 03:56 Lymphocytes % 17.5 % 04/15/21 03:56 Monocytes % 8.1 % 04/15/21 03:56 Eosinophils % 1.3 % 04/15/21 03:56 Basophils % 0.1 % 04/15/21 03:56 Immature Gran # 0.14 X 10*3/uL (0.00-0.04) H 04/15/21 03:56 Neutrophils # 7.18 X 10*3/uL (1.80-7.70) 04/15/21 03:56 Lymphocytes # 1.76 X 10*3/uL (0.90-5.00) 04/15/21 03:56 Monocytes # 0.81 X 10*3/uL (0.20-1.00) 04/15/21 03:56 Eosinophils # 0.13 X 10*3/uL (0.04-0.35) 04/15/21 03:56 Basophils # 0.01 X 10*3/uL (0.00-0.10) 04/15/21 03:56 NRBC/100 WBC Diff 0 /100 WBCS (0.0-0.0) 04/15/21 03:56 POC Glucose (mg/dL) 143 mg/dL (75-99) H 04/15/21 07:38 POC Glu Automation Lead LATHA Radha Jasso 04/15/21 07:[address] Glu mg/dL 146 04/15/21 03:56 Hemoglobin A1c 6.7 % (4.0-6.0) H 04/15/21 03:56 Urine Color Yellow 04/14/21 21:16 Urine Appearance Clear (Clear) 04/14/21 21:16 Urine pH 8.0 (5.0-8.0) 04/14/21 21:16 Ur Specific [place] 1.011 (1.001-1.035) 04/14/21 21:16 Urine Protein Negative (Negative) 04/14/21 21:16 Urine Glucose (UA) Negative (Negative) 04/14/21 21:16 Urine Ketones 1+ (Negative) H 04/14/21 21:16 Urine Blood Negative (Negative) 04/14/21 21:16 Urine Nitrite Negative (Negative) 04/14/21 21:16 Urine Bilirubin Negative (Negative) 04/14/21 21:16 Urine Urobilinogen 2.0 mg/dL (<2.0) 04/14/21 21:16 Ur Leukocyte Esterase Negative (Negative) 04/14/21 21:16 Coronavirus (PCR) Not Detected (Not Detectd) 04/14/21 19:55 ALLERGIES: Adhesive tape, penicillins CHEMICAL DEPENDENCY HISTORY: The patient reports to occasional glass of wine. She denies any tobacco, alcohol, or illicit drug use. She reports that she quit tobacco many years (>20) ago. FAMILY PSYCHIATRIC/SUBSTANCE USE HISTORY: The patient denies any significant psychiatric family history or history of family substance abuse. SOCIAL HISTORY: Patient was born and raised in [facility]. The patient is currently to her Howie for the last 64 years. She reports that she has 2 grandchildren, 2 great grandchildren, and 2 sons. She states that she is the youngest of 11 children, with only her older brother who is 90 years old and herself as the ones left. 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 She is a college graduate of [employer]. MENTAL STATUS EXAM: General Appearance: Patient appears to be stated age is alert, pleasant, and cooperative. Patient appears to have fair hygiene and grooming wearing hospital gown with fair eye contact. Behavior: Patient is calmly lying in bed without any agitated behavior. Psychomotor activity is normal. Speech: Patient's speech is fluent and nonpressured. Mood/Affect: Patient reports their mood is "I'm not crazy", affect is bright, euthymic, appropriate. Suicidality/Homicidality: Patient denies any suicidal or homicidal ideation, intention, and/or plan. Perceptions: Patient denies any visual hallucinations and denies any auditory hallucinations Though content/process: There is no evidence of any delusional thought content and thought process is linear and goal-directed. Memory and concentration: AOX3, grossly intact for the purposes of this session. Can spell "WORLD" backwards Judgment and insight: Excellent IMPRESSIONS: Generalized weakness, suspect secondary to uncontrolled hypertension Hypertension Diabetes mellitus Hypothyroidism PLAN: -At this time patient DOES NOT meet criteria for inpatient psychiatric admission. The patient is not endorsing any significant symptoms of major depressive disorder at this time. She does provides no clear history of any organic depression or anxiety disorder. It appears her symptoms of depression and anxiety appear to be related to normal responses to psychosocial stressors and surroundings. It appears that these symptoms have never been pathologic but rather more related to the human condition. The patient actually presents very well for her age and appears to be well adjusted with a bright affect. She is future-oriented and highly motivated. Suspect weakness is related to her age and chronic medical problems. -Agree with TSH, B12, folate levels to be checked -We will make no psychiatric medication changes at this time. Patient is more appropriate for follow-up with any outpatient psychotherapy services or geriatric social programs rather than inpatient assessment. -Patient DOES have decision making capacity at this time and is able to reason through and communicate/appreciate the risks, benefits and alternatives to treatment. 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 04/15/21 14:07
[2021-04-15 14:37] VITALS: BP 103/85; PULSE 72; RESP 18
--- NOTE | 2021-04-15 16:39 | P.HPIM ---
History of Present Illness H&P Date: 04/14/21 (Transferred from [facility] ER to ER at [facility] due to deficiency of neurological staff and psychiatry staff.) Chief Complaint: Generalized weakness, a compression, hypoglycemia with the glucose POC 60 History and physical Date of service 04/14/2021. Patient seen and evaluated during the evening and night after she was transferred from [facility] emergency room because of deficiency of a psychiatrist and neurologist with the patient complaining of aggravation generalized weakness and possible neurological deficit, and aggressive behavior with the even the emergency room physician. History obtained from her and the patient. Mrs. Collazo 86 years old white female , she discharge from [facility] on 04/13/2021, after clearance with the Dr. Collazo the cardiology, she stayed in the [facility] 4 days on telemetry and they did extensive investigation including echocardiogram. As patient discharge from the hospital she was doing great no complain and no physical finding, she refused to eat supper, in the morning she also refused breakfast, her try to prepare her for the physical therapy and the follow-up nursing group from [place]. Patient still took Levemir injection at bedtime. In the morning she was lethargic not communicating unable to get out of the bed and at that time he called the ambulance and they checked her blood sugar was 60 mg per dl. They could not lift her up the and the son and they called the ambulance. In [facility] ER they did not discussed with the hospital with what the event and the space of information after discussion with the . The diagnoses very obviously hypoglycemia attack secondary to Levemir On admission to the to the hospital they did a computed tomography scan which was negative also they did echocardiogram which did not change much from previously with the presence of pulmonary hypertension aortic stenosis and valvular heart disease with good ejection fraction. Patient will be following and seen by Dr. Sequeira. Cardiology next week . Past medical history: She has underlying peripheral vascular disease, and she had abdominal of aortobifem bypass graft by Dr. Perkins the vascular surgeon. 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 She had chronic kidney disease stage III. She had diabetes mellitus type 2 on insulin dependent with the evidence of previous hypoglycemic episodes the monitored by Dr. Ruggieroof the the artist representative. History of major depressive disorder as well and anxiety neurosis. Dictation ALLERGY adhesive tape, penicillin, Habits nonsmoker nondrinker. She has 2 sons. History of cervical arthritis. As well as ectatic aorta 3.5 cm. She had multilevel spondylolisthesis with loss of disc height at the intervertebral level with advanced degenerative arthritis. Review of system #1 feeling drained out, and this started and feeling fuzzy at home when she had hypoglycemia #2 no chest pain no angina pain #3 no cough OR expectoration #4 no abdominal pain no nausea no vomiting #5 extremities multiple bruises and no edema and good perfusion bilaterally. #6 generalized weakness #7 history of incontinence. On the physical exam: Which done on 04/14/2021 The head was normocephalic and atraumatic pupils equal reactive. Oropharynx was negative with upper plate and partial and dry tongue. Neck was supple and she had carotid artery disease with carotid endarterectomy. Trachea was midline no swallowing difficulties Chest was clear to auscultation percussion and Heart regular sinus rhythm. Abdomen soft positive bowel sounds no organ enlargement Extremities no edema with scattered bruises on the lower extremities. Neurologically was suspicious. Assessment #1 underlying panic attacks, depression and anxiety. #2 unclear if she has any development of neurological deficiency #3 will be consulting the psychiatry and the neurologist for evaluation. #4 continue the current medication. Medication reconciled. Patient stayed in the ER for overflow until bed is available. Plan #1 continue the current medication and withhold the Levemir and monitor the patient overnight #2 admitted as observation. With the laboratory in a.m. Past Medical History Past Medical History: Cancer, Diabetes Mellitus, GERD/Reflux, Hyperlipidemia, Hypertension, Memory Impairment, Rheumatoid Arthritis (RA), Thyroid Disorder Additional Past Medical History / Comment(s): States age related memory impairm ent. 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 Hx right breast cancer had sx and radiaiton tx,, aortic aneurysm(sx done). [facility] "leaky heart valve" History of Any Multi-Drug Resistant Organisms: None Reported Past Surgical History: Appendectomy, Back Surgery, Breast Surgery, Heart Catheterization, Tonsillectomy, Tubal Ligation Additional Past Surgical History / Comment(s): Surgery for arortic aneurysm, surgery on toes of bilateral feet, ablation done on back X2, had uvula removed. lt carpal tunnel release, beverly cataracts, beverly carotid endarterectomy, partial rt mastectomy. colonoscopy/egd/esophgeal dilations, laminectomy/past pain clinic procedures, bunionectomy beverly feet. Past Anesthesia/Blood Transfusion Reactions: No Reported Reaction Past Psychological History: No Psychological Hx Reported Smoking Status: Former smoker Past Alcohol Use History: Rare Past Drug Use History: None Reported - Past Family History Sister(s) Family Medical History: Cancer Additional Family Medical History / Comment(s): Aneurysm. States 3 of her sisters had cancer. Father Additional Family Medical History / Comment(s): Anerysym Mother Additional Family Medical History / Comment(s): Aneurysm Brother(s) Additional Family Medical History / Comment(s): Aneurysm Medications and Allergies Home Medications Medication Instructions Recorded Confirmed Type Aspirin [Adult Low Dose Aspirin EC] 81 mg PO HS 07/02/16 04/14/21 History Ferrous Sulfate [Iron (65 MG 325 mg PO BID 07/02/16 04/14/21 History Elemental)] Levothyroxine Sodium [Synthroid] 150 mcg PO DAILY 07/02/16 04/14/21 History Metoprolol Tartrate [Lopressor] 50 mg PO BID 07/02/16 04/14/21 History Omeprazole 20 mg PO DAILY 07/02/16 04/14/21 History Atorvastatin [Lipitor] 20 mg PO HS 03/17/18 04/14/21 History Etanercept [Enbrel] 50 mg SQ WE 05/16/18 04/14/21 History Allopurinol [Zyloprim] 100 mg PO DAILY 08/28/20 04/14/21 History predniSONE 5 mg PO DAILY 08/28/20 04/14/21 History FLUoxetine HCL [PROzac] 20 mg PO DAILY 04/14/21 04/14/21 History Folic Acid 1 mg PO DAILY 04/14/21 04/14/21 History Furosemide [Lasix] 40 mg PO BID 04/14/21 04/14/21 History Magnesium Oxide 400 mg PO DAILY 04/14/21 04/14/21 History Potassium Chloride [Klor-Con 10 ER] 10 meq PO DAILY 04/14/21 04/14/21 History amLODIPine [Norvasc] 10 mg PO HS 04/14/21 04/14/21 History hydrALAZINE HCL [Apresoline] 75 mg PO QID 04/14/21 04/14/21 History lisinopriL 10 mg PO BID 04/14/21 04/14/21 History Cholecalciferol [Vitamin D3 (25 50 mcg PO DAILY tablet 04/15/21 Rx Mcg = 1000 Iu)] Cyanocobalamin [Vitamin B-12] 1,000 mcg PO DAILY tab 04/15/21 Rx INSULIN ASPART (NovoLOG) [NovoLOG 0 unit SQ ACHS ml 04/15/21 Rx (formulary)] Tadalafil [Cialis] 10 mg PO DAILY 04/15/21 Rx Allergies Allergy/AdvReac Type Severity Reaction Status Date / Time adhesive tape Allergy Rash/Hives Verified 04/14/21 19:35 Penicillins Allergy Swelling Verified 04/14/21 19:35 Physical Exam Vitals: Vital Signs Temp Pulse Resp BP Pulse Ox 04/15/21 14:33 72 18 103/85 98 04/15/21 08:17 97.8 F 55 L 16 130/52 98 04/15/21 04:24 54 L 16 131/51 96 04/14/21 20:19 81 19 171/73 98 04/14/21 19:55 83 20 185/77 97 04/14/21 17:59 98.7 F 82 18 204/108 99 Results CBC & Chem 7: 04/15/21 03:56 Labs: Abnormal Lab Results - Last 24 Hours (Table) 04/14/21 04/15/21 04/15/21 Range/Units 21:16 03:56 03:56 WBC 10.03 H (4.50-10.00) X 10*3/uL RBC 3.79 L (4.10-5.20) X 10*6/uL Hgb 11.3 L (12.0-15.0) g/dL Hct 36.1 L (37.2-46.3) % MCHC 31.3 L (32.0-37.0) g/dL RDW 16.1 H (11.5-14.5) % Immature Gran # 0.14 H (0.00-0.04) X 10*3/uL POC Glucose (mg/dL) (75-99) mg/dL Hemoglobin A1c 6.7 H (4.0-6.0) % Urine Ketones 1+ H (Negative) 04/15/21 Range/Units 07:38 WBC (4.50-10.00) X 10*3/uL RBC (4.10-5.20) X 10*6/uL Hgb (12.0-15.0) g/dL Hct (37.2-46.3) % MCHC (32.0-37.0) g/dL RDW (11.5-14.5) % Immature Gran # (0.00-0.04) X 10*3/uL POC Glucose (mg/dL) 143 H (75-99) mg/dL Hemoglobin A1c (4.0-6.0) % Urine Ketones (Negative)
--- NOTE | 2021-04-15 16:49 | P.DS ---
Providers Date of admission: 04/14/21 19:14 Expected date of discharge: 04/15/21 (Hypoglycemic attack recurrent) Attending physician: Issac Olivia Consults: 04/14/21 19:14 Consult Physician Urgent Consulting Provider: Aj Ward Consult Reason/Comments: Altered mental status Do you want consulting provider notified?: Yes Consult Physician Urgent Consulting Provider: Fede Field Consult Reason/Comments: Depression Do you want consulting provider notified?: Yes Primary care physician: Issac Olivia Final diagnosis: #1 hypoglycemic episode associated with taking Levemir without eating with the fluctuation in the bile of her blood glucose, #2 no long-acting insulin to be given due to recurrent hypo-glycemia. #3 computed tomography scan of the brain was negative #4 computed tomography scan of the cervical spine positive arthritis. #5 underlying diabetes mellitus type 2 insulin-dependent, will use only short acting insulin NovoLog/Humalog. #6 rheumatoid arthritis under treatment by a human intelligence #7 hypertension with hypertensive heart disease echo done again on this admission with no changes. #8 underlying history of COPD pulmonary fibrosis and pulmonary hypertension. #9 no evidence of congestive heart failure on this admission on observation. Hospital course patient admitted overnight and currently stable to be going home discussed with her and the patient and to avoid long-acting insulin use only insulin to scale with the short-acting. Hospital course patient resumed her medication and her blood leukosis stable she is also conscious alert oriented and ambulatory. Exam on discharge stable general condition Head was normocephalic and atraumatic pupils equal reactive. Patient seen by the neurology and psychiatry and they cleared her up with the probability of hypoglycemia causing her aggression and advised to follow-up with Dr. Theodore,. Neck was supple no JVD no thyromegaly no lymphadenopathy trachea midline. Chest is clear to auscultation percussion Heart was regular sinus rhythm Abdomen soft positive bowel sounds Extremities no edema and positive pulses. No neurological event. Assessment and plan Patient will be discharged from observation overnight. Patient stable general condition and her was at bedside. Follow-up next week with Dr SEQUEIRA window shade estimator, and Dr. Chayito camejo public relations analyst. Follow-up with Dr. Olivia next week Continue current medication except stop Levemir long-acting. To avoid any recurrent hypoglycemia and use the insulin to scale only. Plan - Discharge Summary New Discharge Prescriptions: New INSULIN ASPART (NovoLOG) [NovoLOG (formulary)] 0 unit SQ ACHS ml Cyanocobalamin [Vitamin B-12] 1,000 mcg PO DAILY tab Cholecalciferol [Vitamin D3 (25 Mcg = 1000 Iu)] 50 mcg PO DAILY tablet Tadalafil [Cialis] 10 mg PO DAILY Continue Metoprolol Tartrate [Lopressor] 50 mg PO BID Omeprazole 20 mg PO DAILY Levothyroxine Sodium [Synthroid] 150 mcg PO DAILY Ferrous Sulfate [Iron (65 MG Elemental)] 325 mg PO BID Aspirin [Adult Low Dose Aspirin EC] 81 mg PO HS Atorvastatin [Lipitor] 20 mg PO HS Etanercept [Enbrel] 50 mg SQ WE Allopurinol [Zyloprim] 100 mg PO DAILY predniSONE 5 mg PO DAILY Potassium Chloride [Klor-Con 10 ER] 10 meq PO DAILY Magnesium Oxide 400 mg PO DAILY FLUoxetine HCL [PROzac] 20 mg PO DAILY hydrALAZINE HCL [Apresoline] 75 mg PO QID Furosemide [Lasix] 40 mg PO BID lisinopriL 10 mg PO BID Folic Acid 1 mg PO DAILY amLODIPine [Norvasc] 10 mg PO HS Discontinued Insulin Detemir [Levemir Flextouch] 17 units SQ HS Discharge Medication List Aspirin [Adult Low Dose Aspirin EC] 81 mg PO HS 07/02/16 [History] Ferrous Sulfate [Iron (65 MG Elemental)] 325 mg PO BID 07/02/16 [History] Levothyroxine Sodium [Synthroid] 150 mcg PO DAILY 07/02/16 [History] Metoprolol Tartrate [Lopressor] 50 mg PO BID 07/02/16 [History] Omeprazole 20 mg PO DAILY 07/02/16 [History] Atorvastatin [Lipitor] 20 mg PO HS 03/17/18 [History] Etanercept [Enbrel] 50 mg SQ WE 05/16/18 [History] Allopurinol [Zyloprim] 100 mg PO DAILY 08/28/20 [History] predniSONE 5 mg PO DAILY 08/28/20 [History] FLUoxetine HCL [PROzac] 20 mg PO DAILY 04/14/21 [History] Folic Acid 1 mg PO DAILY 04/14/21 [History] Furosemide [Lasix] 40 mg PO BID 04/14/21 [History] Magnesium Oxide 400 mg PO DAILY 04/14/21 [History] Potassium Chloride [Klor-Con 10 ER] 10 meq PO DAILY 04/14/21 [History] amLODIPine [Norvasc] 10 mg PO HS 04/14/21 [History] hydrALAZINE HCL [Apresoline] 75 mg PO QID 04/14/21 [History] lisinopriL 10 mg PO BID 04/14/21 [History] Cholecalciferol [Vitamin D3 (25 Mcg = 1000 Iu)] 50 mcg PO DAILY tablet 04/15/21 [Rx] Cyanocobalamin [Vitamin B-12] 1,000 mcg PO DAILY tab 04/15/21 [Rx] INSULIN ASPART (NovoLOG) [NovoLOG (formulary)] 0 unit SQ ACHS ml 04/15/21 [Rx] Tadalafil [Cialis] 10 mg PO DAILY 04/15/21 [Rx] Follow up Appointment(s)/Referral(s): Marianna Sequeira MD [STAFF PHYSICIAN] - 1 Week Issac Olivia MD [Primary Care Provider] - 1 Week
[2021-04-15 17:27] LABS: African American GFR (CKD) 52.1 (60.0-200.0); Albumin 3.2 g/dL (3.8-4.9); Albumin/Globulin Ratio 1.8 (1.60-3.17); Anion Gap 13.5 mmol/L (4.00-12.00); BUN/Creat Ratio 20.54 Ratio (12.00-20.00); Blood Urea Nitrogen 22.8 mg/dL (9.0-27.0); Calcium 8.6 mg/dL (8.7-10.3); Globulin 1.8 g/dL (1.6-3.3); Magnesium 2.3 mg/dL (1.5-2.4); Non-African American GFR(CKD) 44.9 (60.0-200.0); Potassium 3.8 mmol/L (3.5-5.5); Total Bilirubin 0.5 mg/dL (0.30-1.20); Uric Acid 5.3 mg/dL (2.9-7.7)
[2021-04-20 17:45] LABS: Vitamin B12 >2000.0 pg/mL (200.0-944.0)
== END 2021-04-15 17:40 | disposition home or self-care (01) ==
LOC: EC 17:46 → 4SSUR 19:14
PROVIDERS: ADMIT Internal Medicine; ATTEND Internal Medicine
DX: E11.649 Type 2 diabetes mellitus with hypoglycemia without coma (principal); T38.3X5A Adverse effect of insulin and oral hypoglycemic [antidiabetic] drugs, initial encounter; I08.3 Combined rheumatic disorders of mitral, aortic and tricuspid valves; I13.10 Hypertensive heart and chronic kidney disease without heart failure, with stage 1 through stage 4 chronic kidney disease, or unspecified chronic kidney disease; E11.22 Type 2 diabetes mellitus with diabetic chronic kidney disease; N18.30 Chronic kidney disease, stage 3 unspecified; E11.51 Type 2 diabetes mellitus with diabetic peripheral angiopathy without gangrene; E78.5 Hyperlipidemia, unspecified; M06.9 Rheumatoid arthritis, unspecified; K21.9 Gastro-esophageal reflux disease without esophagitis; E03.9 Hypothyroidism, unspecified; I27.20 Pulmonary hypertension, unspecified; J44.9 Chronic obstructive pulmonary disease, unspecified; J84.10 Pulmonary fibrosis, unspecified; G89.29 Other chronic pain; M50.30 Other cervical disc degeneration, unspecified cervical region; M15.9 Polyosteoarthritis, unspecified; M43.10 Spondylolisthesis, site unspecified; M47.812 Spondylosis without myelopathy or radiculopathy, cervical region; F41.0 Panic disorder [episodic paroxysmal anxiety]; F41.1 Generalized anxiety disorder; F32.9 Major depressive disorder, single episode, unspecified; R41.3 Other amnesia; Z20.822 Contact with and (suspected) exposure to COVID-19; Z79.82 Long term (current) use of aspirin; Z79.890 Hormone replacement therapy; Z79.4 Long term (current) use of insulin; Z79.52 Long term (current) use of systemic steroids; Z79.899 Other long term (current) drug therapy; Z88.0 Allergy status to penicillin; Z91.048 Other nonmedicinal substance allergy status; Z92.3 Personal history of irradiation; Z91.81 History of falling; Z85.3 Personal history of malignant neoplasm of breast; Z86.79 Personal history of other diseases of the circulatory system; Z98.51 Tubal ligation status; Z98.42 Cataract extraction status, left eye; Z98.41 Cataract extraction status, right eye; Z90.11 Acquired absence of right breast and nipple; Z87.448 Personal history of other diseases of urinary system; Z87.891 Personal history of nicotine dependence; Z86.69 Personal history of other diseases of the nervous system and sense organs; Z98.890 Other specified postprocedural states; Z80.9 Family history of malignant neoplasm, unspecified; Z82.49 Family history of ischemic heart disease and other diseases of the circulatory system
CPT/HCPCS: 99285; 93306; 80053; 84443; 82607; 82746; 83735; 84550; 85025; 81003; 83036; 87635; 72125; 70450; G0378 ×2; J7512

== ENCOUNTER 2021-12-25 11:00 | Emergency (ER) | payer MEDICARE ==
[2021-12-25 11:06] VITALS: TEMP 98
--- NOTE | 2021-12-25 11:31 | ED ---
Extremity Problem HPI - General Chief complaint: Extremity Problem,Nontraumatic Stated complaint: lt foot diabetic issue Time Seen by Provider: 12/25/21 11:11 Source: patient, RN notes reviewed Mode of arrival: wheelchair Limitations: no limitations - History of Present Illness Initial comments: This is a 86 -year-old female presents emergency Department chief complaint of left foot pain discoloration. Patient states the last few days she's noticed br uising, pain and blistering top of her foot. Patient states that she has chronic skin issues of her lower extremities and which aren't unsure what is causing this. Patient states she's had multiple injuries and multiple evaluations of her lower extremities for her skin issues. Patient denies any fevers or chills patient denies any new medications no open lesions or sores. - Related Data Home Medications Medication Instructions Recorded Confirmed Omeprazole 20 mg PO DAILY 07/02/16 12/25/21 Atorvastatin [Lipitor] 20 mg PO HS 03/17/18 12/25/21 Etanercept [Enbrel] 50 mg SQ WE 05/16/18 12/25/21 predniSONE 5 mg PO DAILY 08/28/20 12/25/21 Furosemide [Lasix] 40 mg PO BID PRN 04/14/21 12/25/21 Potassium Chloride [Klor-Con 10 ER] 10 meq PO DAILY PRN 04/14/21 12/25/21 lisinopriL [Prinivil] 10 mg PO BID 04/14/21 12/25/21 FLUoxetine HCL [PROzac] 10 mg PO DAILY 12/25/21 12/25/21 Insulin Lispro [humaLOG Kwikpen] See Protocol SQ AC-TID PRN 12/25/21 12/25/21 Isosorbide Mononitrate ER [Imdur] 30 mg PO DAILY 12/25/21 12/25/21 Levothyroxine Sodium [Synthroid] 100 mcg PO DAILY 12/25/21 12/25/21 Methylphenidate HCl [Ritalin] 10 mg PO BID 12/25/21 12/25/21 Metoprolol Tartrate [Lopressor] 12.5 mg PO HS 12/25/21 12/25/21 Metoprolol Tartrate [Lopressor] 25 mg PO DAILY 12/25/21 12/25/21 Propylene Glycol/Peg 400/Pf 1 drop BOTH EYES Q6H PRN 12/25/21 12/25/21 [Systane 0.3-0.4% Eye Drop] Ranolazine [Ranolazine ER] 500 mg PO Q12HR 12/25/21 12/25/21 amLODIPine [Norvasc] 5 mg PO BID@1200,2100 12/25/21 12/25/21 Previous Rx's Medication Instructions Recorded Cholecalciferol [Vitamin D3 (25 50 mcg PO DAILY tablet 04/15/21 Mcg = 1000 Iu)] Cyanocobalamin [Vitamin B-12] 1,000 mcg PO DAILY tab 04/15/21 Cephalexin [Keflex] 500 mg PO Q6HR #40 cap 12/25/21 Allergies Allergy/AdvReac Type Severity Reaction Status Date / Time adhesive tape Allergy Rash/Hives Verified 12/25/21 12:01 Penicillins Allergy Rash/Hives Verified 12/25/21 12:01 Review of Systems ROS Statement: Those systems with pertinent positive or pertinent negative responses have been documented in the HPI. ROS Other: All systems not noted in ROS Statement are negative. Past Medical History Past Medical History: Cancer, Diabetes Mellitus, GERD/Reflux, Hyperlipidemia, Hypertension, Memory Impairment, Rheumatoid Arthritis (RA), Thyroid Disorder Additional Past Medical History / Comment(s): States age related memory impairment. 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 Hx right breast cancer had sx and radiaiton tx,, aortic aneurysm(sx done). per [facility] "leaky heart valve" History of Any Multi-Drug Resistant Organisms: None Reported Past Surgical History: Appendectomy, Back Surgery, Breast Surgery, Heart Catheterization, Tonsillectomy, Tubal Ligation Additional Past Surgical History / Comment(s): Surgery for arortic aneurysm, surgery on toes of bilateral feet, ablation done on back X2, had uvula removed.lt carpal tunnel release, beverly cataracts, beverly carotid endarterectomy, partial rt mastectomy. colonoscopy/egd/esophgeal dilations, laminectomy/past pain clinic procedures, bunionectomy beverly feet. Past Anesthesia/Blood Transfusion Reactions: No Reported Reaction Past Psychological History: No Psychological Hx Reported Smoking Status: Former smoker Past Alcohol Use History: Rare Past Drug Use History: None Reported - Past Family History Sister(s) Family Medical History: Cancer Additional Family Medical History / Comment(s): Aneurysm. States 3 of her sisters had cancer. Father Additional Family Medical History / Comment(s): Anerysym Mother Additional Family Medical History / Comment(s): Aneurysm Brother(s) Additional Family Medical History / Comment(s): Aneurysm General Exam Limitations: no limitations General appearance: alert, in no apparent distress Head exam: Present: atraumatic, normocephalic, normal inspection Respiratory exam: Present: normal lung sounds bilaterally. Absent: respiratory distress, wheezes, rales, rhonchi, stridor Cardiovascular Exam: Present: regular rate, normal rhythm, normal heart sounds. Absent: systolic murmur, diastolic murmur, rubs, gallop, clicks Extremities exam: Present: other (Lower extremity bilaterally there is chronic skin changes brawny color with raised irregular scan, left foot is diffusely ecchymotic with some blistering on the dorsal aspect pulses are palpable) Neurological exam: Present: alert Skin exam: Present: warm, dry Course Vital Signs 12/25/21 11:02 Temperature 98 F Pulse Rate 53 L Respiratory 20 Rate Blood Pressure 177/62 O2 Sat by Pulse 98 Oximetry Medical Decision Making - Medical Decision Making 86-year-old presented for left foot pain discoloration and blistering. Labs are unremarkable there is some concern for possible infection. Patient will be starting and Biaxin close follow-up. - Lab Data Result diagrams: 12/25/21 12:21 12/25/21 12:21 Lab Results 12/25/21 12/25/21 12/25/21 Range/Units 12:21 12:21 12:21 WBC 8.8 (3.8-10.6) k/uL RBC 3.73 L (3.80-5.40) m/uL Hgb 11.8 (11.4-16.0) gm/dL Hct 36.2 (34.0-46.0) % MCV 97.1 (80.0-100.0) fL MCH 31.6 (25.0-35.0) pg MCHC 32.5 (31.0-37.0) g/dL RDW 14.7 (11.5-15.5) % Plt Count 114 L (150-450) k/uL MPV 8.6 Neutrophils % 74 % Lymphocytes % 18 % Monocytes % 5 % Eosinophils % 2 % Basophils % 1 % Neutrophils # 6.5 (1.3-7.7) k/uL Lymphocytes # 1.6 (1.0-4.8) k/uL Monocytes # 0.5 (0-1.0) k/uL Eosinophils # 0.2 (0-0.7) k/uL Basophils # 0.1 (0-0.2) k/uL Hypochromasia Slight PT 10.4 (9.0-12.0) sec INR 1.0 (<1.2) APTT 20.6 L (22.0-30.0) sec Sodium 139 (137-145) mmol/L Potassium 4.1 (3.5-5.1) mmol/L Chloride 107 (98-107) mmol/L Carbon Dioxide 28 (22-30) mmol/L Anion Gap 4 mmol/L BUN 30 H (7-17) mg/dL Creatinine 0.94 (0.52-1.04) mg/dL Est GFR (CKD-EPI)AfAm 64 (>60 ml/min/1.73 sqM) Est GFR (CKD-EPI)NonAf 55 (>60 ml/min/1.73 sqM) Glucose 148 H (74-99) mg/dL Calcium 9.5 (8.4-10.2) mg/dL Total Bilirubin 0.5 (0.2-1.3) mg/dL AST 17 (14-36) U/L ALT 13 (4-34) U/L Alkaline Phosphatase 60 (38-126) U/L C-Reactive Protein <0.5 (<1.0) mg/dL Total Protein 6.3 (6.3-8.2) g/dL Albumin 4.0 (3.5-5.0) g/dL Disposition Clinical Impression: Superficial bruising of foot, Cellulitis of left foot Disposition: HOME SELF-CARE Condition: Stable Instructions (If sedation given, give patient instructions): Swollen Joint (ED) Additional Instructions: Please return to the Emergency Department if symptoms worsen or any other concerns. Prescriptions: Cephalexin [Keflex] 500 mg PO Q6HR #40 cap Is patient prescribed a controlled substance at d/c from ED?: No Referrals: Issac Olivia MD [Primary Care Provider] - 1-2 days Time of Disposition: 13:40
[2021-12-25 12:57] LABS: Basophils # (A) 0.1 k/uL (0-0.2); Basophils % (A) 1 %; Eosinophils # (A) 0.2 k/uL (0-0.7); Eosinophils % (A) 2 %; HCT 36.2 % (34.0-46.0); HGB 11.8 gm/dL (11.4-16.0); Hypochromasia Slight; Lymphocytes # (A) 1.6 k/uL (1.0-4.8); Lymphocytes % (A) 18 %; MCH 31.6 pg (25.0-35.0); MCHC 32.5 g/dL (31.0-37.0); MCV 97.1 fL (80.0-100.0); Mean Platelet Volume 8.6; Monocytes # (A) 0.5 k/uL (0-1.0); Monocytes % (A) 5 %; Neutrophils # (A) 6.5 k/uL (1.3-7.7); Neutrophils % (A) 74 %; Platelet Count 114 k/uL (150-450); RBC 3.73 m/uL (3.80-5.40); RDW 14.7 % (11.5-15.5); WBC 8.8 k/uL (3.8-10.6)
--- NOTE | 2021-12-25 13:05 | XR ---
Left foot HISTORY: Pain, bruising, wound 3 views of the left foot Bone mineralization is reduced. There are punched-out lucencies involving the distal fifth metatarsal with associated soft tissue swelling. Periarticular osteopenia noted at the fourth and fifth digits. There is no fracture or dislocation. Digits are flexed which could limit evaluation. Degenerative ch carolann present at the metatarsophalangeal joint of the first digit. Underlying soft tissue swelling is present. There is a plantar calcaneal spur. Vascular calcifications are noted within the soft tissues . Hypertrophic changes are present at the tarsometatarsal joints. Cortical irregularity noted of the distal phalanx of the first digit. IMPRESSION: Osteopenia and soft tissue swelling, correlate for cellulitis, difficult to exclude osteo myelitis. Suspect underlying osteoarthritic changes. Follow-up as indicated.
[2021-12-25 13:11] LABS: ALT 13 U/L (4-34); AST 17 U/L (14-36); African American GFR (CKD) 64 (>60 ml/min/1.73 sqM); Alkaline Phosphatase 60 U/L (38-126); Anion Gap 4 mmol/L; Blood Urea Nitrogen 30 mg/dL (7-17); C Reactive Protein <0.5 mg/dL (<1.0); Calcium 9.5 mg/dL (8.4-10.2); Carbon Dioxide 28 mmol/L (22-30); Chloride 107 mmol/L (98-107); Glucose 148 mg/dL (74-99); Non-African American GFR(CKD) 55 (>60 ml/min/1.73 sqM); Potassium 4.1 mmol/L (3.5-5.1); Sodium 139 mmol/L (137-145); Total Bilirubin 0.5 mg/dL (0.2-1.3); Total Protein 6.3 g/dL (6.3-8.2)
[2021-12-25 13:16] LABS: Prothrombin Time 10.4 sec (9.0-12.0)
[2021-12-25 13:30] LABS: Partial Thromboplastin Time 20.6 sec (22.0-30.0)
[2021-12-25] MEDS ORDERED: cefTRIAXone IN SWFI 1,000 MG/10 ML SYRINGE IVP STA (13:37)
[2021-12-25 15:02] VITALS: BP 208/83; PULSE 63; RESP 18
== END 2021-12-25 14:40 | disposition home or self-care (01) ==
LOC: EC 11:00
DX: T14.8XXA Other injury of unspecified body region, initial encounter (principal); L03.116 Cellulitis of left lower limb; E11.9 Type 2 diabetes mellitus without complications; E78.5 Hyperlipidemia, unspecified; I10 Essential (primary) hypertension; K21.9 Gastro-esophageal reflux disease without esophagitis; Z79.83 Long term (current) use of bisphosphonates; Z87.891 Personal history of nicotine dependence; Z88.0 Allergy status to penicillin; Z91.048 Other nonmedicinal substance allergy status
CPT/HCPCS: 36415; 80053; 85025; 85610; 85730; 86140; 73630; 20610; 99283; 96374; J0696; G0463; J7328; 99213

== ENCOUNTER 2022-09-17 15:40 | Emergency (ER) | payer MEDICARE ==
--- NOTE | 2022-09-17 17:39 | XR ---
EXAMINATION TYPE: XR chest 2V DATE OF EXAM: 09/17/2022 COMPARISON: 04/14/2021 HISTORY: Weakness TECHNIQUE: FINDINGS: There is some mild coarsening of interstitial markings. No obvious heart failure. Thoracic aorta is atheromatous. There is old healed fracture left humeral neck. No pleural effusion. There is osteopenia. There is mild anterior wedging of mid thoracic vertebra. IMPRESSION: Mild pulmonary fibrosis. No heart failure. Lung markings increased slightly compared to old exam. IMPRESSION:
[2022-09-17] MEDS ORDERED: ACETAMINOPHEN TAB 500 MG TAB PO STA (18:01)
[2022-09-17] MEDS ORDERED: ACETAMINOPHEN TAB 325 MG TAB PO STA (18:01)
[2022-09-17 18:11] LABS: Basophils % (A) 0 %; Eosinophils # (A) 0.2 k/uL (0-0.7); Eosinophils % (A) 2 %; HCT 35.1 % (34.0-46.0); HGB 11.9 gm/dL (11.4-16.0); Lymphocytes # (A) 2.2 k/uL (1.0-4.8); Lymphocytes % (A) 20 %; MCH 32.8 pg (25.0-35.0); MCHC 33.9 g/dL (31.0-37.0); MCV 96.7 fL (80.0-100.0); Monocytes # (A) 0.5 k/uL (0-1.0); Monocytes % (A) 5 %; Neutrophils # (A) 7.8 k/uL (1.3-7.7); Neutrophils % (A) 72 %; Platelet Count 121 k/uL (150-450); RBC 3.63 m/uL (3.80-5.40); RDW 14.3 % (11.5-15.5); WBC 10.9 k/uL (3.8-10.6)
--- NOTE | 2022-09-17 18:29 | ED ---
Weakness HPI - General Source: patient Mode of arrival: ambulatory Limitations: no limitations <Wendy Coburn - Last Filed: 09/17/22 18:58> <Yo Monte - Last Filed: 09/17/22 21:34> - General Chief complaint: Weakness Stated complaint: weakness Time Seen by Provider: 09/17/22 16:26 - History of Present Illness Initial comments: Patient is an 87-year-old female who presents to the emergency department for weakness. Patient has history of dementia. She is alert and oriented 3 although an unreliable historian. According to son patient has progressing dementia reports along with her bipolar has caused increased combative behavior over the past couple months. He has not noticed any significant change from baseline today however states today patient called saying she was about to . She denied chest pain and shortness of breath. After arguing then called the ambulance for evaluation. Patient states she feels a little bit weak. Denies any pain or focal deficit. No recent falls or head injury. No fever, chills, cold-like symptoms, abdominal pain, nausea, vomiting, constipat ion, burning with urination. No suicidal or homicidal ideation. Patient lives with her at home. (Wendy Coburn) - Related Data Home Medications Medication Instructions Recorded Confirmed Omeprazole 20 mg PO DAILY PRN 07/02/16 09/17/22 Atorvastatin [Lipitor] 20 mg PO HS 03/17/18 09/17/22 Etanercept [Enbrel] 50 mg SQ WE 05/16/18 09/17/22 predniSONE 5 mg PO DAILY 08/28/20 09/17/22 Furosemide [Lasix] 40 mg PO HS 04/14/21 09/17/22 Potassium Chloride [Klor-Con 10 ER] 10 meq PO DAILY 04/14/21 09/17/22 Metoprolol Tartrate [Lopressor] 12.5 mg PO DAILY 12/25/21 09/17/22 Ranolazine [Ranolazine ER] 500 mg PO Q12HR 12/25/21 09/17/22 Aspirin EC [Ecotrin Low Dose] 81 mg PO DAILY 09/17/22 09/17/22 Levothyroxine Sodium [Synthroid] 75 mcg PO DAILY 09/17/22 09/17/22 Methylphenidate HCl 20 mg PO DAILY 09/17/22 09/17/22 [Methylphenidate ER] tadalafiL 10 mg PO DIRECTED 09/17/22 09/17/22 Previous Rx's Medication Instructions Recorded Cholecalciferol [Vitamin D3 (25 50 mcg PO DAILY tablet 04/15/21 Mcg = 1000 Iu)] Cyanocobalamin [Vitamin B-12] 1,000 mcg PO DAILY tab 04/15/21 Sulfamethox-Tmp 800-160Mg [Bactrim 1 each PO Q12HR #6 tab 09/17/22 Ds] Allergies Allergy/AdvReac Type Severity Reaction Status Date / Time adhesive tape Allergy Rash/Hives Verified 09/17/22 17:17 Penicillins Allergy Rash/Hives Verified 09/17/22 17:17 Review of Systems ROS Other: All systems not noted in ROS Statement are negative. <Wendy Coburn - Last Filed: 09/17/22 18:58> ROS Other: All systems not noted in ROS Statement are negative. <Yo Monte - Last Filed: 09/17/22 21:34> ROS Statement: Those systems with pertinent positive or pertinent negative responses have been documented in the HPI. Past Medical History Past Medical History: Cancer, Diabetes Mellitus, GERD/Reflux, Hyperlipidemia, Hypertension, Memory Impairment, Rheumatoid Arthritis (RA), Thyroid Disorder Additional Past Medical History / Comment(s): States age related memory impa irment. 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 Hx right breast cancer had sx and radiaiton tx,, aortic aneurysm(sx done). per [facility] "leaky heart valve" History of Any Multi-Drug Resistant Organisms: None Reported Past Surgical History: Appendectomy, Back Surgery, Breast Surgery, Heart Catheterization, Tonsillectomy, Tubal Ligation Additional Past Surgical History / Comment(s): Surgery for arortic aneurysm, surgery on toes of bilateral feet, ablation done on back X2, had uvula remov ed.lt carpal tunnel release, beverly cataracts, beverly carotid endarterectomy, partial rt mastectomy. colonoscopy/egd/esophgeal dilations, laminectomy/past pain clinic procedures, bunionectomy beverly feet. Past Anesthesia/Blood Transfusion Reactions: No Reported Reaction Past Psychological History: No Psychological Hx Reported Smoking Status: Former smoker Past Alcohol Use History: Rare Past Drug Use History: None Reported - Past Family History Sister(s) Family Medical History: Cancer Additional Family Medical History / Comment(s): Aneurysm. States 3 of her sisters had cancer. Father Additional Family Medical History / Comment(s): Anerysym Mother Additional Family Medical History / Comment(s): Aneurysm Brother(s) Additional Family Medical History / Comment(s): Aneurysm <Wendy Coburn - Last Filed: 09/17/22 18:58> General Exam Limitations: no limitations General appearance: alert, in no apparent distress Head exam: Present: atraumatic, normocephalic, normal inspection Respiratory exam: Present: normal lung sounds bilaterally. Absent: respiratory distress, wheezes, rales, rhonchi, stridor Cardiovascular Exam: Present: regular rate, normal rhythm, normal heart sounds. Absent: systolic murmur, diastolic murmur, rubs, gallop, clicks GI/Abdominal exam: Present: soft, normal bowel sounds. Absent: distended, tenderness, guarding, rebound, rigid Extremities exam: Present: normal inspection, full ROM, normal capillary refill. Absent: tenderness, pedal edema, joint swelling, calf tenderness Neurological exam: Present: alert, oriented X3, CN II-XII intact Skin exam: Present: warm, dry, intact, normal color. Absent: rash <Wendy Coburn - Last Filed: 09/17/22 18:58> Course Vital Signs 09/17/22 09/17/22 15:48 17:54 Temperature 100.9 F H 101.6 F H Pulse Rate 80 Respiratory 18 Rate Blood Pressure 148/80 O2 Sat by Pulse 99 Oximetry Medical Decision Making - Lab Data Result diagrams: 09/17/22 18:03 <Wendy Coburn - Last Filed: 09/17/22 18:58> - Lab Data Result diagrams: 09/17/22 18:03 09/17/22 18:03 <Yo Monte - Last Filed: 09/17/22 21:34> - Medical Decision Making EKG taken at 18:13, Interpreted by me Sinus rhythm and no ST segment or T-wave abnormality, Ventricular rate 72, WV interval 152, QRS duration 84, QTC 401 Was pt. sent in by a medical professional or institution (, PA, ACQUISITION MARKETING COORDINATOR, urgent care, hospital, or [facility]...) When possible be specific @ -[No] Did you speak to anyone other than the patient for history (EMS, parent, family, police, friend...)? What history was obtained from this source @ -Yes, patient's son. See HPI Did you review nursing and triage notes (agree or disagree)? Why? @ -[I reviewed and agree with nursing and triage notes] Were old charts reviewed (outside hosp., previous admission, EMS record, old EKG, old radiological studies, urgent care reports/EKG's, [facility] records)? Report findings @ -[No old charts were reviewed] Differential Diagnosis (chest pain, altered mental status, abdominal pain women, abdominal pain men, vaginal bleeding, weakness, fever, dyspnea, syncope, headache, dizziness, GI bleed, back pain, seizure, CVA, palpatations, mental health)? @ -Differential Weakness: Hypoglycemia, shock, sepsis, hyponatremia, anemia, infection, MO, ETOH, adverse medicine reaction, overdose, stroke, this is not meant to be an all-inclusive list. EKG interpreted by me (3pts min.). @ -See above X-rays interpreted by me (1pt min.). @ -[Yes, chest x-ray shows pulmonary fibrosis with no significant change compared to previous exam CT interpreted by me (1pt min.). @ -[None done] U/S interpreted by me (1pt. min.). @ -[None done] What testing was considered but not performed or refused? (CT, X-rays, U/S, labs)? Why? @ -[None] What meds were considered but not given or refused? Why? @ -[None] Did you discuss the management of the patient with other professionals (professionals i.e. , PA, ACQUISITION MARKETING COORDINATOR, lab, RT, psych nurse, psychologist social, relays draftsperson, teacher, booking police officer, case packer and sealer)? Give summary @ -[No] Was smoking cessation discussed for >3mins.? @ -[No] Was critical care preformed (if so, how long)? @ -[No] Were there social determinants of health that impacted care today? How? (Homelessness, low income, unemployed, alcoholism, drug addiction, transportation, low edu. Level, literacy, decrease access to med. care, [facility], rehab)? @ -[No] Was there de-escalation of care discussed even if they declined (Discuss DNR or withdrawal of care, Hospice)? DNR status @ -[No] What co-morbidities impacted this encounter? (DM, HTN, Smoking, COPD, CAD, Cancer, CVA, ARF, Chemo, Hep., AIDS, mental health diagnosis, sleep apnea, morbid obesity)? @ -[None] Was patient admitted / discharged? Hospital course, mention meds given and route, prescriptions, significant lab abnormalities, going to OR and other pertinent info. @ Patient presenting for weakness. She is alert and oriented x 3 but does appear to be a little confused. Patient has history of dementia. She does have a fever at 100.9 degrees Fahrenheit. She is resting comfortably. Laboratory studies obtained. There is a very mild leukocytosis at 10.9. Stated new problem with uncertain prognosis? @ -[No] Drug Therapy requiring intensive monitoring for toxicity (Heparin, Nitro, Insulin, Cardizem)? @ -[No] Were any procedures done? @ -[No] Diagnosis/symptom? @ -weakness Acute, or Chronic, or Acute on Chronic? @ -[default] Uncomplicated (without systemic symptoms) or Complicated (systemic symptoms)? @ -[default] Side effects of treatment? @ -[No] Exacerbation, Progression, or Severe Exacerbation? @ -[No] Poses a threat to life or bodily function? How? (Chest pain, USA, MO, pneumonia, PE, COPD, DKA, ARF, appy, cholecystitis, CVA, Diverticulitis, Homicidal, Suicidal, threat to staff... and all critical care pts) @ -[No] (Wendy Coburn) This patient is an 87-year-old woman who is here to be evaluated for some generalized weakness and confusion. The patient does have underlying dementia. Patient found to have fever. At this point there may be urinary tract infection, other source of fever is not evident. The patient has given antibiotic here and will have course of antibiotic to continue. They were offered admission but both patient and really would like to go home and given her underlying dementia this may be reasonable as there does appear to be milieu affect the patient is somewhat anxious here. Detailed discussion of return parameters and appropriate follow-up. (Yo Monte) - Lab Data Lab Results 09/17/22 09/17/22 09/17/22 Range/Units 18:03 18:03 18:03 WBC 10.9 H (3.8-10.6) k/uL RBC 3.63 L (3.80-5.40) m/uL Hgb 11.9 (11.4-16.0) gm/dL Hct 35.1 (34.0-46.0) % MCV 96.7 (80.0-100.0) fL MCH 32.8 (25.0-35.0) pg MCHC 33.9 (31.0-37.0) g/dL RDW 14.3 (11.5-15.5) % Plt Count 121 L (150-450) k/uL MPV 8.0 Neutrophils % 72 % Lymphocytes % 20 % Monocytes % 5 % Eosinophils % 2 % Basophils % 0 % Neutrophils # 7.8 H (1.3-7.7) k/uL Lymphocytes # 2.2 (1.0-4.8) k/uL Monocytes # 0.5 (0-1.0) k/uL Eosinophils # 0.2 (0-0.7) k/uL Basophils # 0.0 (0-0.2) k/uL Sodium 134 L (137-145) mmol/L Potassium 4.1 (3.5-5.1) mmol/L Chloride 98 (98-107) mmol/L Carbon Dioxide 33 H (22-30) mmol/L Anion Gap 3 mmol/L BUN 22 H (7-17) mg/dL Creatinine 1.28 H (0.52-1.04) mg/dL Est GFR (CKD-EPI)AfAm 44 (>60 ml/min/1.73 sqM) Est GFR (CKD-EPI)NonAf 38 (>60 ml/min/1.73 sqM) Glucose 139 H (74-99) mg/dL Calcium 9.7 (8.4-10.2) mg/dL Total Bilirubin 1.0 (0.2-1.3) mg/dL AST 24 (14-36) U/L ALT 17 (4-34) U/L Alkaline Phosphatase 48 (38-126) U/L Total Protein 6.0 L (6.3-8.2) g/dL Albumin 3.6 (3.5-5.0) g/dL Urine Color Urine Appearance (Clear) Urine pH (5.0-8.0) Ur Specific Nathalie (1.001-1.035) Urine Protein (Negative) Urine Glucose (UA) (Negative) Urine Ketones (Negative) Urine Blood (Negative) Urine Nitrite (Negative) Urine Bilirubin (Negative) Urine Urobilinogen (<2.0) mg/dL Ur Leukocyte Esterase (Negative) Urine RBC (0-5) /hpf Urine WBC (0-5) /hpf Ur Squamous Epith Cells (0-4) /hpf Amorphous Sediment (None) /hpf Urine Bacteria (None) /hpf Urine Mucus (None) /hpf Influenza Type A (PCR) Not Detected (Not Detectd) Influenza Type B (PCR) Not Detected (Not Detectd) RSV (PCR) Not Detected (Not Detectd) SARS-CoV-2 (PCR) Not Detected (Not Detectd) 09/17/22 Range/Units 19:59 WBC (3.8-10.6) k/uL RBC (3.80-5.40) m/uL Hgb (11.4-16.0) gm/dL Hct (34.0-46.0) % MCV (80.0-100.0) fL MCH (25.0-35.0) pg MCHC (31.0-37.0) g/dL RDW (11.5-15.5) % Plt Count (150-450) k/uL MPV Neutrophils % % Lymphocytes % % Monocytes % % Eosinophils % % Basophils % % Neutrophils # (1.3-7.7) k/uL Lymphocytes # (1.0-4.8) k/uL Monocytes # (0-1.0) k/uL Eosinophils # (0-0.7) k/uL Basophils # (0-0.2) k/uL Sodium (137-145) mmol/L Potassium (3.5-5.1) mmol/L Chloride (98-107) mmol/L Carbon Dioxide (22-30) mmol/L Anion Gap mmol/L BUN (7-17) mg/dL Creatinine (0.52-1.04) mg/dL Est GFR (CKD-EPI)AfAm (>60 ml/min/1.73 sqM) Est GFR (CKD-EPI)NonAf (>60 ml/min/1.73 sqM) Glucose (74-99) mg/dL Calcium (8.4-10.2) mg/dL Total Bilirubin (0.2-1.3) mg/dL AST (14-36) U/L ALT (4-34) U/L Alkaline Phosphatase (38-126) U/L Total Protein (6.3-8.2) g/dL Albumin (3.5-5.0) g/dL Urine Color Yellow Urine Appearance Cloudy H (Clear) Urine pH 7.0 (5.0-8.0) Ur Specific Nathalie 1.011 (1.001-1.035) Urine Protein Negative (Negative) Urine Glucose (UA) Negative (Negative) Urine Ketones Negative (Negative) Urine Blood Negative (Negative) Urine Nitrite Negative (Negative) Urine Bilirubin Negative (Negative) Urine Urobilinogen <2.0 (<2.0) mg/dL Ur Leukocyte Esterase Trace H (Negative) Urine RBC 29 H (0-5) /hpf Urine WBC 8 H (0-5) /hpf Ur Squamous Epith Cells <1 (0-4) /hpf Amorphous Sediment Occasional H (None) /hpf Urine Bacteria Occasional H (None) /hpf Urine Mucus Rare H (None) /hpf Influenza Type A (PCR) (Not Detectd) Influenza Type B (PCR) (Not Detectd) RSV (PCR) (Not Detectd) SARS-CoV-2 (PCR) (Not Detectd) Disposition <Wendy Coburn - Last Filed: 09/17/22 18:58> Is patient prescribed a controlled substance at d/c from ED?: No <Yo Monte - Last Filed: 09/17/22 21:34> Clinical Impression: Weakness, Dementia, Urinary tract infection Disposition: HOME SELF-CARE Condition: Fair Instructions (If sedation given, give patient instructions): Urinary Tract Infection in Women (ED), Dementia (ED) Prescriptions: Sulfamethox-Tmp 800-160Mg [Bactrim Ds] 1 each PO Q12HR #6 tab Referrals: Issac Olviia MD [Primary Care Provider] - 1-2 days
[2022-09-17 18:39] LABS: Albumin 3.6 g/dL (3.5-5.0); Calcium 9.7 mg/dL (8.4-10.2)
[2022-09-17 18:59] LABS: Potassium 4.1 mmol/L (3.5-5.1)
[2022-09-17] MEDS ORDERED: SODIUM CHLORIDE 0.9% 500 ML 500 ML IV STA (18:59)
[2022-09-17 20:20] LABS: Amorphous Sediment,Urine Occasional /hpf; Appearance,Urine Cloudy (Clear); Bacteria,Urine Occasional /hpf; Bilirubin,Urine Negative (Negative); Blood,Urine Negative (Negative); Color,Urine Yellow; Glucose,Urine (UA) Negative (Negative); Ketones,Urine Negative (Negative); Leukocyte Esterase,Urine Trace (Negative); Mucus,Urine Rare /hpf; Nitrite,Urine Negative (Negative); Protein,Urine Negative (Negative); RBC,Urine 29 /hpf (0-5); Specific Gravity,Urine 1.011 (1.001-1.035); Squamous Epithelial Cell,Urine <1 /hpf (0-4); Urobilinogen,Urine <2.0 mg/dL (<2.0); WBC,Urine 8 /hpf (0-5)
[2022-09-17] MEDS ORDERED: SULFAMETHOX-TMP 800-160MG 1 EACH TAB PO STA (21:01)
[2022-09-17 22:05] VITALS: BP 140/60; PULSE 74; RESP 20; TEMP 98.9
== END 2022-09-17 22:04 | disposition home or self-care (01) ==
LOC: EC 15:40
DX: F03.90 Unspecified dementia, unspecified severity, without behavioral disturbance, psychotic disturbance, mood disturbance, and anxiety (principal); N39.0 Urinary tract infection, site not specified; R53.1 Weakness; E11.9 Type 2 diabetes mellitus without complications; I10 Essential (primary) hypertension; E78.5 Hyperlipidemia, unspecified; K21.9 Gastro-esophageal reflux disease without esophagitis; M06.9 Rheumatoid arthritis, unspecified; E07.9 Disorder of thyroid, unspecified; Z20.822 Contact with and (suspected) exposure to COVID-19; Z79.82 Long term (current) use of aspirin; Z79.52 Long term (current) use of systemic steroids; Z79.890 Hormone replacement therapy; Z79.899 Other long term (current) drug therapy; Z87.891 Personal history of nicotine dependence; Z88.0 Allergy status to penicillin; Z91.048 Other nonmedicinal substance allergy status
CPT/HCPCS: 36415; 71046; 80053; 81001; 85025; 87636; 93005; 96360; 99285

== ENCOUNTER 2022-10-03 14:32 | Emergency (ER) | payer MEDICARE ==
--- NOTE | 2022-10-03 15:44 | ED ---
Psych HPI - General Chief Complaint: Psychiatric Symptoms Stated Complaint: EPS eval Time Seen by Provider: 10/03/22 14:35 Source: EMS, RN notes reviewed, old records reviewed, Caregiver Mode of arrival: EMS Limitations: language barrier, altered mental status, physical limitation - History of Present Illness Initial Comments: This is an 87-year-old female brought in under petition for evaluation, reevaluation of increasing delirium and altered mental state. able to provide history. The due to elevated psychiatric state currently. Significant delirium currently. Patient is brought in by family again under petition for further evaluation management. Patient becoming unable for the to help take care of her at home, at this point patient has become a threat to others and herself and she is unsafe to live alone MD Complaint: altered mental status -: unknown Associated Psychiatric Symptoms: racing thoughts History of same: Yes Quality: constant, changing over time, getting worse Improves With: none Worsens With: none Context: not taking psychiatric medications (Patient was recently taken off of Ritalin) Associated Symptoms: confusion Treatments Prior to Arrival: placed on mental health hold - Related Data Home Medications Medication Instructions Recorded Confirmed Omeprazole 20 mg PO DAILY PRN 07/02/16 09/17/22 Atorvastatin [Lipitor] 20 mg PO HS 03/17/18 09/17/22 Etanercept [Enbrel] 50 mg SQ WE 05/16/18 09/17/22 predniSONE 5 mg PO DAILY 08/28/20 09/17/22 Furosemide [Lasix] 40 mg PO HS 04/14/21 09/17/22 Potassium Chloride [Klor-Con 10 ER] 10 meq PO DAILY 04/14/21 09/17/22 Metoprolol Tartrate [Lopressor] 12.5 mg PO DAILY 12/25/21 09/17/22 Ranolazine [Ranolazine ER] 500 mg PO Q12HR 12/25/21 09/17/22 Aspirin EC [Ecotrin Low Dose] 81 mg PO DAILY 09/17/22 09/17/22 Levothyroxine Sodium [Synthroid] 75 mcg PO DAILY 09/17/22 09/17/22 Methylphenidate HCl 20 mg PO DAILY 09/17/22 09/17/22 [Methylphenidate ER] tadalafiL 10 mg PO DIRECTED 09/17/22 09/17/22 Previous Rx's Medication Instructions Recorded Cholecalciferol [Vitamin D3 (25 50 mcg PO DAILY tablet 04/15/21 Mcg = 1000 Iu)] Cyanocobalamin [Vitamin B-12] 1,000 mcg PO DAILY tab 04/15/21 Sulfamethox-Tmp 800-160Mg [Bactrim 1 each PO Q12HR #6 tab 09/17/22 Ds] Allergies Allergy/AdvReac Type Severity Reaction Status Date / Time adhesive tape Allergy Rash/Hives Verified 10/03/22 14:54 Penicillins Allergy Rash/Hives Verified 10/03/22 14:54 Review of Systems ROS Statement: Those systems with pertinent positive or pertinent negative responses have been documented in the HPI. ROS Other: All systems not noted in ROS Statement are negative. Past Medical History Past Medical History: Cancer, Diabetes Mellitus, GERD/Reflux, Hyperlipidemia, Hypertension, Memory Impairment, Rheumatoid Arthritis (RA), Thyroid Disorder Additional Past Medical History / Comment(s): States age related memory impairment. 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 Hx right breast cancer had sx and radiaiton tx,, aortic aneurysm(sx done). per [facility] "leaky heart valve" History of Any Multi-Drug Resistant Organisms: None Reported Past Surgical History: Appendectomy, Back Surgery, Breast Surgery, Heart Catheterization, Tonsillectomy, Tubal Ligation Additional Past Surgical History / Comment(s): Surgery for arortic aneurysm, surgery on toes of bilateral feet, ablation done on back X2, had uvula removed.lt carpal tunnel release, beverly cataracts, beverly carotid endarterectomy, partial rt mastectomy. colonoscopy/egd/esophgeal dilations, laminectomy/past pain clinic procedures, bunionectomy beverly feet. Past Anesthesia/Blood Transfusion Reactions: No Reported Reaction Past Psychological History: No Psychological Hx Reported Smoking Status: Former smoker Past Alcohol Use History: Rare Past Drug Use History: None Reported - Past Family History Sister(s) Family Medical History: Cancer Additional Family Medical History / Comment(s): Aneurysm. States 3 of her sisters had cancer. Father Additional Family Medical History / Comment(s): Anerysym Mother Additional Family Medical History / Comment(s): Aneurysm Brother(s) Additional Family Medical History / Comment(s): Aneurysm General Exam Limitations: language barrier, altered mental status, physical limitation General appearance: alert, in no apparent distress, anxious Head exam: Present: atraumatic, normocephalic, normal inspection Eye exam: Present: normal appearance, PERRL, EOMI. Absent: scleral icterus, conjunctival injection, periorbital swelling ENT exam: Present: normal exam, mucous membranes moist Neck exam: Present: normal inspection. Absent: tenderness, meningismus, lymphadenopathy Respiratory exam: Present: normal lung sounds bilaterally. Absent: respiratory distress, wheezes, rales, rhonchi, stridor Cardiovascular Exam: Present: regular rate, normal rhythm, normal heart sounds. Absent: systolic murmur, diastolic murmur, rubs, gallop, clicks GI/Abdominal exam: Present: soft, normal bowel sounds. Absent: distended, tend erness, guarding, rebound, rigid Extremities exam: Present: normal inspection, full ROM, normal capillary refill. Absent: tenderness, pedal edema, joint swelling, calf tenderness Back exam: Present: normal inspection Neurological exam: Present: alert, oriented X3, CN II-XII intact Psychiatric exam: Present: normal affect, normal mood Skin exam: Present: warm, dry, intact, normal color. Absent: rash Course - Reevaluation(s) Reevaluation #1: 10/03/22 16:41 Record is reviewed Reevaluation #2: 10/03/22 16:41 Patient has no change in symptoms here in the ER mildly improved with anxiolysis Reevaluation #3: 10/03/22 16:41 patient family informed results and desire to keep in the hospital there agreeable Reevaluation #4: 10/03/22 16:41 Was pt. sent in by a medical professional or institution? @ -[by , PA, [facility], urgent care, hospital, or halfway] Did you speak to anyone other than the patient for history? @ -[EMS, parent, family, police, friend?] Did you review nursing and triage notes? @ -[agree or disagree, why?] Were old charts reviewed? @ -[outside hosp., previous admissions, EMS record, old EKG, old radiological studies, urgent care reports/EKGs, halfway records?] Differential Diagnosis? @ -[chest pain, altered mental status abdominal pain women, abdominal pain men, vaginal bleeding, weakness, fever, dyspnea, syncope, headache, dizziness, GI bleed, back pain, seizure] EKG interpreted by me (3pts min.)? @ -[none] X-rays interpreted by me (1pt min.)? @ -[none] CT interpreted by me (1pt min.)? @ -[none] U/S interpreted by me (1pt. min.)? @ -[none] What testing was considered but not performed? (CT, X-rays, U/S, labs)? Why? @ [CT, X-rays, U/S, labs? Why?] What meds were considered but not given? Why? @ -[none] Did you discuss the management of the patient with other professionals? @ -[professionals i.e. Dr, PA, [facility], Lab, RT, Psych Nurse, Jewel Setter, Potato Chip Sacking Machine Operator, Teacher, Manager Game, casework manager? Give summary] Did you reconcile home meds? @ -[none] Was smoking cessation discussed for >3mins.? @ -[none] Was critical care preformed (if so, how long)? @ -[none] Were there social determinants of health that impacted care today? How? (Homelessness, low income, unemployed, alcoholism, drug addiction, transportation, low edu. Level, literacy, decrease access to med. care, [facility], rehab)? @ -[Homelessness, low income, unemployed, alcoholism, drug addiction, transportation, low edu. Level, literacy, decrease access to med. care, [facility], rehab?] Was there de-escalation of care discussed even if they declined? (Discuss DNR or withdrawal of care, Hospice)? @ -[Discuss DNR or withdrawal of care, Hospice?] What co-morbidities impacted this encounter? (DM, HTN, Smoking, COPD, CAD, Cancer, CVA, Hep., AIDS, mental health diagnosis, sleep apnea, morbid obesity)? @ -[DM, HTN, Smoking, COPD, CAD, Cancer, CVA, Hep., AIDS, mental health diagnosis, sleep apnea, morbid obesity?] Was patient admitted / discharged? @ -[hospital course] Undiagnosed new problem with uncertain prognosis? @ -[none] Drug Therapy requiring intensive monitoring for toxicity (Heparin, Nitro, Insulin, Cardizem)? @ -[none] Were any procedures done? @ -[none] Diagnosis/symptom? @ -[default] Acute, or Chronic, or Acute on Chronic? @ -[default] Uncomplicated (without systemic symptoms) or Complicated (systemic symptoms)? @ -[default] Side effects of treatment? @ -[none] Exacerbation, Progression, or Severe Exacerbation] @ -[no] Poses a threat to life or bodily function? @ -[no] Reevaluation #5: 10/03/22 16:41 Differential Altered Mental Status: Hypoglycemia, DKA, hypercapnia, ETOH, overdose, CO poisoning, trauma, myxedema coma, HTN encephalopathy, infection, encephalitis, psychosis, intercranial hemorrhage, hepatic encephalopathy, meningitis, CVA, this is not meant to be an all-inclusive listatus - Consultations Consultation #1: Spoke with [facility] regarding admission agreeable Medical Decision Making - Medical Decision Making 87 female to the ER for evaluation patient presents today for evaluation regards to delirium altered mental status not feeling well. Patient will be admitted f or both psychiatric and neurological evaluation regarding current clinical condition - Lab Data Result diagrams: 10/03/22 16:12 Lab Results 10/03/22 Range/Units 16:12 WBC 9.7 (3.8-10.6) k/uL RBC 4.42 (3.80-5.40) m/uL Hgb 13.9 (11.4-16.0) gm/dL Hct 41.5 (34.0-46.0) % MCV 93.9 (80.0-100.0) fL MCH 31.5 (25.0-35.0) pg MCHC 33.5 (31.0-37.0) g/dL RDW 15.3 (11.5-15.5) % Plt Count 143 L (150-450) k/uL MPV 8.1 Neutrophils % 60 % Lymphocytes % 29 % Monocytes % 5 % Eosinophils % 3 % Basophils % 1 % Neutrophils # 5.8 (1.3-7.7) k/uL Lymphocytes # 2.8 (1.0-4.8) k/uL Monocytes # 0.5 (0-1.0) k/uL Eosinophils # 0.3 (0-0.7) k/uL Basophils # 0.1 (0-0.2) k/uL Poikilocytosis Slight Disposition Clinical Impression: Altered mental status, Dementia, Depression, Generalized weakness, Adjustment reaction of adult life Disposition: ADMITTED IP TO THIS HOSP Condition: Fair Is patient prescribed a controlled substance at d/c from ED?: No Referrals: Issac Olivia MD [Primary Care Provider] - 1-2 days Time of Disposition: 17:00
[2022-10-03] MEDS ORDERED: SODIUM CHLORIDE 0.9% 1,000 ML IV STA (15:54)
[2022-10-03] MEDS ORDERED: LORazepam 2 MG/ML INJ IV STA (15:54)
[2022-10-03 16:25] LABS: Basophils # (A) 0.1 k/uL (0-0.2); Basophils % (A) 1 %; Eosinophils # (A) 0.3 k/uL (0-0.7); Eosinophils % (A) 3 %; HCT 41.5 % (34.0-46.0); HGB 13.9 gm/dL (11.4-16.0); Lymphocytes # (A) 2.8 k/uL (1.0-4.8); Lymphocytes % (A) 29 %; MCH 31.5 pg (25.0-35.0); MCHC 33.5 g/dL (31.0-37.0); MCV 93.9 fL (80.0-100.0); Mean Platelet Volume 8.1; Monocytes # (A) 0.5 k/uL (0-1.0); Monocytes % (A) 5 %; Neutrophils # (A) 5.8 k/uL (1.3-7.7); Neutrophils % (A) 60 %; Platelet Count 143 k/uL (150-450); Poikilocytosis Slight; RBC 4.42 m/uL (3.80-5.40); RDW 15.3 % (11.5-15.5); WBC 9.7 k/uL (3.8-10.6)
[2022-10-03 17:07] LABS: Acetaminophen <10.0 ug/mL; African American GFR (CKD) 38 (>60 ml/min/1.73 sqM); Alcohol <10 mg/dL; Anion Gap 8 mmol/L; Blood Urea Nitrogen 24 mg/dL (7-17); Calcium 9.4 mg/dL (8.4-10.2); Carbon Dioxide 29 mmol/L (22-30); Chloride 100 mmol/L (98-107); Glucose 134 mg/dL (74-99); Non-African American GFR(CKD) 33 (>60 ml/min/1.73 sqM); Salicylate <1.0 mg/dL; Sodium 137 mmol/L (137-145)
--- NOTE | 2022-10-03 17:37 | ED ---
Medical Decision Making - Medical Decision Making 87 female to the ED for increasing Dementia, Dr Olivia is inable to manage this patient any further and would like psychiatry to take over her care. Patient is petitioned and certified for psychiatric evaluation. - Lab Data Result diagrams: 10/03/22 16:12 10/03/22 16:12 Lab Results 10/03/22 10/03/22 Range/Units 16:12 16:12 WBC 9.7 (3.8-10.6) k/uL RBC 4.42 (3.80-5.40) m/uL Hgb 13.9 (11.4-16.0) gm/dL Hct 41.5 (34.0-46.0) % MCV 93.9 (80.0-100.0) fL MCH 31.5 (25.0-35.0) pg MCHC 33.5 (31.0-37.0) g/dL RDW 15.3 (11.5-15.5) % Plt Count 143 L (150-450) k/uL MPV 8.1 Neutrophils % 60 % Lymphocytes % 29 % Monocytes % 5 % Eosinophils % 3 % Basophils % 1 % Neutrophils # 5.8 (1.3-7.7) k/uL Lymphocytes # 2.8 (1.0-4.8) k/uL Monocytes # 0.5 (0-1.0) k/uL Eosinophils # 0.3 (0-0.7) k/uL Basophils # 0.1 (0-0.2) k/uL Poikilocytosis Slight Sodium 137 (137-145) mmol/L Potassium 4.0 (3.5-5.1) mmol/L Chloride 100 (98-107) mmol/L Carbon Dioxide 29 (22-30) mmol/L Anion Gap 8 mmol/L BUN 24 H (7-17) mg/dL Creatinine 1.44 H (0.52-1.04) mg/dL Est GFR (CKD-EPI)AfAm 38 (>60 ml/min/1.73 sqM) Est GFR (CKD-EPI)NonAf 33 (>60 ml/min/1.73 sqM) Glucose 134 H (74-99) mg/dL Calcium 9.4 (8.4-10.2) mg/dL Salicylates <1.0 mg/dL Acetaminophen <10.0 ug/mL Serum Alcohol <10 mg/dL Disposition Clinical Impression: Altered mental status, Dementia, Depression, Generalized weakness, Adjustment reaction of adult life Disposition: TRANSFER TO PSYCH HOSP/UNIT Condition: Fair
[2022-10-04 08:39] VITALS: BP 130/60; PULSE 67; RESP 18; TEMP 97
[2022-10-04] MEDS ORDERED: predniSONE 10 MG TAB PO STA (10:36)
[2022-10-04] MEDS ORDERED: PANTOPRAZOLE 40 MG TABLET PO PRN (10:38)
[2022-10-04] MEDS ORDERED: METOPROLOL TARTRATE 25 MG TAB PO STA (10:40)
[2022-10-04] MEDS ORDERED: FUROSEMIDE 40 MG TAB PO STA (10:43)
[2022-10-04] MEDS ORDERED: ATORVASTATIN 20 MG TAB PO STA (10:44)
[2022-10-04] MEDS ORDERED: CHOLECALCIFEROL 25 MCG (1000 IU) TABLET PO SCH (10:45)
[2022-10-04] MEDS ORDERED: ASPIRIN 81 MG PO STA (10:46)
[2022-10-04] MEDS ORDERED: CYANOCOBALAMIN 500 MCG TAB PO SCH (11:00)
[2022-10-04] MEDS ORDERED: METHYLPHENIDATE HCL 10 MG TAB PO SCH (11:00)
[2022-10-04] MEDS ORDERED: RANOLAZINE 500 MG TAB.ER.12H PO SCH (11:00)
[2022-10-05] MEDS ORDERED: LEVOTHYROXINE 75 MCG TAB PO SCH (06:30)
== END 2022-10-04 13:25 ==
LOC: EC 14:32 → UNDOADMOB 16:46 → 6NMEDSUR 16:46 → EC 10-04 13:25
DX: F03.90 Unspecified dementia, unspecified severity, without behavioral disturbance, psychotic disturbance, mood disturbance, and anxiety (principal); F43.21 Adjustment disorder with depressed mood; R53.1 Weakness; E11.9 Type 2 diabetes mellitus without complications; I10 Essential (primary) hypertension; E78.5 Hyperlipidemia, unspecified; E07.9 Disorder of thyroid, unspecified; M06.9 Rheumatoid arthritis, unspecified; Z87.891 Personal history of nicotine dependence; Z79.82 Long term (current) use of aspirin; Z79.890 Hormone replacement therapy; Z88.0 Allergy status to penicillin; Z91.048 Other nonmedicinal substance allergy status
CPT/HCPCS: 36415; 80048; 85025; 80143; 87635; 80179; 99285; 96374; 96361 ×15; G0480; J2060; 80320

== ENCOUNTER 2022-10-11 14:13 | Inpatient (IN) | payer MEDICARE ==
[2022-10-11] MEDS ORDERED: ONDANSETRON 4 MG/2 ML VIAL IVP STA (14:35)
[2022-10-11] MEDS ORDERED: SODIUM CHLORIDE 0.9% 1,000 ML IV STA (14:35)
[2022-10-11] MEDS ORDERED: FAMOTIDINE 20 MG/2 ML VIAL IV STA (14:55)
--- NOTE | 2022-10-11 15:21 | ED ---
Nausea/Vomiting/Diarrhea HPI - General Chief complaint: Nausea/Vomiting/Diarrhea Stated complaint: Diarrhea Time Seen by Provider: 10/11/22 14:35 Source: patient, EMS, RN notes reviewed Mode of arrival: EMS Limitations: no limitations - History of Present Illness Initial comments: This is an 87-year-old female who presents to the emergency department for nausea, vomiting, and diarrhea. Patient states that the diarrhea began 3 days ago and she is going multiple times each day. She's been taking Imodium with no relief. Today, she started to vomit. She has minor associated lower abdominal pain that she relates to the vomiting. Denies any blood in her vomit or stool. Also denies any fevers or sick contacts. She finished ciprofloxacin 2 weeks ago for a UTI. She was discharged from the geriatric psych unit in [place] earlier today. She was experiencing these symptoms at the time of discharge as well. Denies any fevers, chills, sore throat, cough, dyspnea, chest pain, palpitations, back pain, or headaches. MD complaint: nausea, vomiting, diarrhea Onset/Timin -: days(s) Associated Abdominal Pain: Yes - Related Data Home Medications Medication Instructions Recorded Confirmed Omeprazole 20 mg PO DAILY PRN 07/02/16 10/11/22 Atorvastatin [Lipitor] 20 mg PO HS 03/17/18 10/11/22 Etanercept [Enbrel] 50 mg SQ WE 05/16/18 10/11/22 predniSONE 5 mg PO DAILY 08/28/20 10/11/22 Furosemide [Lasix] 40 mg PO HS 04/14/21 10/11/22 Potassium Chloride [Klor-Con 10 ER] 10 meq PO DAILY 04/14/21 10/11/22 Metoprolol Tartrate [Lopressor] 12.5 mg PO DAILY 12/25/21 10/11/22 Ranolazine [Ranolazine ER] 500 mg PO Q12HR 12/25/21 10/11/22 Aspirin EC [Ecotrin Low Dose] 81 mg PO DAILY 09/17/22 10/11/22 Levothyroxine Sodium [Synthroid] 75 mcg PO DAILY 09/17/22 10/11/22 Methylphenidate HCl 20 mg PO DAILY 09/17/22 10/11/22 [Methylphenidate ER] tadalafiL 10 mg PO DAILY 09/17/22 10/11/22 Loperamide [Imodium] 2 mg PO QID PRN 10/11/22 10/11/22 OLANZapine [ZyPREXA] 2.5 mg PO BID 10/11/22 10/11/22 lisinopriL [Zestril] 10 mg PO BID 10/11/22 10/11/22 Previous Rx's Medication Instructions Recorded Cholecalciferol [Vitamin D3 (25 50 mcg PO DAILY tablet 04/15/21 Mcg = 1000 Iu)] Cyanocobalamin [Vitamin B-12] 1,000 mcg PO DAILY tab 04/15/21 Allergies Allergy/AdvReac Type Severity Reaction Status Date / Time adhesive tape Allergy Rash/Hives Verified 10/11/22 19:38 Penicillins Allergy Rash/Hives Verified 10/11/22 19:38 Review of Systems ROS Statement: Those systems with pertinent positive or pertinent negative responses have been documented in the HPI. ROS Other: All systems not noted in ROS Statement are negative. Past Medical History Past Medical History: Cancer, Diabetes Mellitus, GERD/Reflux, Hyperlipidemia, Hypertension, Memory Impairment, Rheumatoid Arthritis (RA), Thyroid Disorder Additional Past Medical History / Comment(s): States age related memory impairment. 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 Hx right breast cancer had sx and radiaiton tx,, aortic aneurysm(sx done). per [facility] "leaky heart valve" History of Any Multi-Drug Resistant Organisms: None Reported Past Surgical History: Appendectomy, Back Surgery, Breast Surgery, Heart Cathete rization, Tonsillectomy, Tubal Ligation Additional Past Surgical History / Comment(s): Surgery for arortic aneurysm, surgery on toes of bilateral feet, ablation done on back X2, had uvula removed.lt carpal tunnel release, beverly cataracts, beverly carotid endarterectomy, partial rt mastectomy. colonoscopy/egd/esophgeal dilations, laminectomy/past pain clinic procedures, bunionectomy beverly feet. Past Anesthesia/Blood Transfusion Reactions: No Reported Reaction Past Psychological History: No Psychological Hx Reported Smoking Status: Former smoker Past Alcohol Use History: Rare Past Drug Use History: None Reported - Past Family History Sister(s) Family Medical History: Cancer Additional Family Medical History / Comment(s): Aneurysm. States 3 of her sisters had cancer. Father Additional Family Medical History / Comment(s): Anerysym Mother Additional Family Medical History / Comment(s): Aneurysm Brother(s) Additional Family Medical History / Comment(s): Aneurysm General Exam Limitations: no limitations General appearance: alert, in no apparent distress Head exam: Present: atraumatic, normocephalic, normal inspection Respiratory exam: Present: normal lung sounds bilaterally. Absent: respiratory distress, wheezes, rales, rhonchi, stridor Cardiovascular Exam: Present: regular rate, normal rhythm, normal heart sounds. Absent: systolic murmur, diastolic murmur, rubs, gallop, clicks GI/Abdominal exam: Present: soft, normal bowel sounds. Absent: distended, tenderness, guarding, rebound, rigid Neurological exam: Present: alert, oriented X3, CN II-XII intact Psychiatric exam: Present: normal affect, normal mood Skin exam: Present: warm, dry, intact, normal color. Absent: rash Course Vital Signs 10/11/22 10/11/22 10/11/22 14:27 15:52 17:56 Temperature 97.7 F Pulse Rate 83 86 Respiratory 18 18 Rate Blood Pressure 147/78 181/70 O2 Sat by Pulse 95 98 Oximetry Medical Decision Making - Medical Decision Making This is an 87-year-old female who presents to the emergency department for nausea, vomiting, and diarrhea. Was pt. sent in by a medical professional or institution? @ -No Did you speak to anyone other than the patient for history? @ -Her family Did you review nursing and triage notes? @ -Yes, and I agree, it is accurate with regards to the patient's symptoms. Were old charts reviewed? @ -No Differential Diagnosis? @ -Differential Nausea and Vomiting: Gastroenteritis, cholecystitis, appendicitis, pancreatitis, migraine, benign positional vertigo, food borne illness, pyelonephritis, irritable bowel syndrome, influenza, Covid, GERD, incarcerated hernia, intestinal obstruction, this is not meant to be an all-inclusive list. What testing was considered but not performed? (CT, X-rays, U/S, labs)? Why? @ -None What meds were considered but not given? Why? @ -None Did you discuss the management of the patient with other professionals? @ -Yes, Dr. Olivia, who requests that the patient be admitted. Did you reconcile home meds? @ -No Was smoking cessation discussed for >3mins.? @ -No Was critical care preformed (if so, how long)? @ -No Were there social determinants of health that impacted care today? How? (Homelessness, low income, unemployed, alcoholism, drug addiction, transportation, low edu. Level, literacy, decrease access to med. care, long term, rehab)? @ -No Was there de-escalation of care discussed even if they declined? (Discuss DNR or withdrawal of care, Hospice)? @ -No What co-morbidities impacted this encounter? (DM, HTN, Smoking, COPD, CAD, Cancer, CVA, Hep., AIDS, mental health diagnosis, sleep apnea, morbid obesity)? @ -HLD, HTN, DM, CAD, Memory impairment Was patient admitted / discharged? @ -Admitted. Lab work obtained revealing leukocytosis. Renal failure is consistent with prior values. Urinalysis negative for signs of infection. Patient given IV fluids and Zofran. She had significant improvement in nausea following Zofran administration. She was able to drink water without difficulty. Dr. Olivia contacted me at about the patient and requested she be admitted. He also requested stool culture and lactoferrin, as well as social work consult. Her is no longer able to care for her on his own and she is likely going to need [facility] placement. Undiagnosed new problem with uncertain prognosis? @ -None Drug Therapy requiring intensive monitoring for toxicity (Heparin, Nitro, Insulin, Cardizem)? @ -None Were any procedures done? @ -None Diagnosis/symptom? @ -Gastroenteritis, dehydration Acute, or Chronic, or Acute on Chronic? @ -Acute Uncomplicated (without systemic symptoms) or Complicated (systemic symptoms)? @ -Complicated Side effects of treatment? @ -None Exacerbation, Progression, or Severe Exacerbation] @ -Not applicable Poses a threat to life or bodily function? @ -Yes This case was discussed in detail with the attending ED physician, Dr. Lagunas. Presentation, findings, and treatment plan discussed in detail as well. - Lab Data Result diagrams: 10/12/22 04:43 10/12/22 04:43 Lab Results 10/11/22 10/11/22 10/11/22 Range/Units 15:10 15:10 15:10 WBC 12.1 H (3.8-10.6) k/uL RBC 3.78 L (3.80-5.40) m/uL Hgb 11.9 (11.4-16.0) gm/dL Hct 36.1 (34.0-46.0) % MCV 95.4 (80.0-100.0) fL MCH 31.6 (25.0-35.0) pg MCHC 33.1 (31.0-37.0) g/dL RDW 15.8 H (11.5-15.5) % Plt Count 112 L (150-450) k/uL MPV 8.2 Neutrophils % 82 % Lymphocytes % 10 % Monocytes % 6 % Eosinophils % 1 % Basophils % 0 % Neutrophils # 9.9 H (1.3-7.7) k/uL Lymphocytes # 1.2 (1.0-4.8) k/uL Monocytes # 0.7 (0-1.0) k/uL Eosinophils # 0.1 (0-0.7) k/uL Basophils # 0.0 (0-0.2) k/uL ESR 13 (0-20) mm/hr Sodium 135 L (137-145) mmol/L Potassium 4.6 (3.5-5.1) mmol/L Chloride 101 (98-107) mmol/L Carbon Dioxide 25 (22-30) mmol/L Anion Gap 9 mmol/L BUN 32 H (7-17) mg/dL Creatinine 1.50 H (0.52-1.04) mg/dL Est GFR (CKD-EPI)AfAm 36 (>60 ml/min/1.73 sqM) Est GFR (CKD-EPI)NonAf 31 (>60 ml/min/1.73 sqM) Glucose 179 H (74-99) mg/dL Calcium 8.6 (8.4-10.2) mg/dL Total Bilirubin 2.3 H (0.2-1.3) mg/dL AST 34 (14-36) U/L ALT 21 (4-34) U/L Alkaline Phosphatase 50 (38-126) U/L Troponin I (0.000-0.034) ng/mL C-Reactive Protein (<1.0) mg/dL Total Protein 6.1 L (6.3-8.2) g/dL Albumin 3.6 (3.5-5.0) g/dL Amylase 131 H (30-110) U/L Lipase 87 (23-300) U/L Procalcitonin (0.02-0.09) ng/mL Urine Color Urine Appearance (Clear) Urine pH (5.0-8.0) Ur Specific [place] (1.001-1.035) Urine Protein (Negative) Urine Glucose (UA) (Negative) Urine Ketones (Negative) Urine Blood (Negative) Urine Nitrite (Negative) Urine Bilirubin (Negative) Urine Urobilinogen (<2.0) mg/dL Ur Leukocyte Esterase (Negative) Influenza Type A (PCR) (Not Detectd) Influenza Type B (PCR) (Not Detectd) RSV (PCR) (Not Detectd) SARS-CoV-2 (PCR) (Not Detectd) 10/11/22 10/11/22 10/11/22 Range/Units 15:10 15:20 15:38 WBC (3.8-10.6) k/uL RBC (3.80-5.40) m/uL Hgb (11.4-16.0) gm/dL Hct (34.0-46.0) % MCV (80.0-100.0) fL MCH (25.0-35.0) pg MCHC (31.0-37.0) g/dL RDW (11.5-15.5) % Plt Count (150-450) k/uL MPV Neutrophils % % Lymphocytes % % Monocytes % % Eosinophils % % Basophils % % Neutrophils # (1.3-7.7) k/uL Lymphocytes # (1.0-4.8) k/uL Monocytes # (0-1.0) k/uL Eosinophils # (0-0.7) k/uL Basophils # (0-0.2) k/uL ESR (0-20) mm/hr Sodium (137-145) mmol/L Potassium (3.5-5.1) mmol/L Chloride (98-107) mmol/L Carbon Dioxide (22-30) mmol/L Anion Gap mmol/L BUN (7-17) mg/dL Creatinine (0.52-1.04) mg/dL Est GFR (CKD-EPI)AfAm (>60 ml/min/1.73 sqM) Est GFR (CKD-EPI)NonAf (>60 ml/min/1.73 sqM) Glucose (74-99) mg/dL Calcium (8.4-10.2) mg/dL Total Bilirubin (0.2-1.3) mg/dL AST (14-36) U/L ALT (4-34) U/L Alkaline Phosphatase (38-126) U/L Troponin I (0.000-0.034) ng/mL C-Reactive Protein 4.1 H (<1.0) mg/dL Total Protein (6.3-8.2) g/dL Albumin (3.5-5.0) g/dL Amylase (30-110) U/L Lipase (23-300) U/L Procalcitonin 0.13 H (0.02-0.09) ng/mL Urine Color Urine Appearance (Clear) Urine pH (5.0-8.0) Ur Specific [place] (1.001-1.035) Urine Protein (Negative) Urine Glucose (UA) (Negative) Urine Ketones (Negative) Urine Blood (Negative) Urine Nitrite (Negative) Urine Bilirubin (Negative) Urine Urobilinogen (<2.0) mg/dL Ur Leukocyte Esterase (Negative) Influenza Type A (PCR) Not Detected (Not Detectd) Influenza Type B (PCR) Not Detected (Not Detectd) RSV (PCR) Not Detected (Not Detectd) SARS-CoV-2 (PCR) Not Detected (Not Detectd) 10/11/22 10/11/22 Range/Units 15:51 17:32 WBC (3.8-10.6) k/uL RBC (3.80-5.40) m/uL Hgb (11.4-16.0) gm/dL Hct (34.0-46.0) % MCV (80.0-100.0) fL MCH (25.0-35.0) pg MCHC (31.0-37.0) g/dL RDW (11.5-15.5) % Plt Count (150-450) k/uL MPV Neutrophils % % Lymphocytes % % Monocytes % % Eosinophils % % Basophils % % Neutrophils # (1.3-7.7) k/uL Lymphocytes # (1.0-4.8) k/uL Monocytes # (0-1.0) k/uL Eosinophils # (0-0.7) k/uL Basophils # (0-0.2) k/uL ESR (0-20) mm/hr Sodium (137-145) mmol/L Potassium (3.5-5.1) mmol/L Chloride (98-107) mmol/L Carbon Dioxide (22-30) mmol/L Anion Gap mmol/L BUN (7-17) mg/dL Creatinine (0.52-1.04) mg/dL Est GFR (CKD-EPI)AfAm (>60 ml/min/1.73 sqM) Est GFR (CKD-EPI)NonAf (>60 ml/min/1.73 sqM) Glucose (74-99) mg/dL Calcium (8.4-10.2) mg/dL Total Bilirubin (0.2-1.3) mg/dL AST (14-36) U/L ALT (4-34) U/L Alkaline Phosphatase (38-126) U/L Troponin I <0.012 (0.000-0.034) ng/mL C-Reactive Protein (<1.0) mg/dL Total Protein (6.3-8.2) g/dL Albumin (3.5-5.0) g/dL Amylase (30-110) U/L Lipase (23-300) U/L Procalcitonin (0.02-0.09) ng/mL Urine Color Yellow Urine Appearance Clear (Clear) Urine pH 5.0 (5.0-8.0) Ur Specific [place] 1.009 (1.001-1.035) Urine Protein Negative (Negative) Urine Glucose (UA) Negative (Negative) Urine Ketones Negative (Negative) Urine Blood Negative (Negative) Urine Nitrite Negative (Negative) Urine Bilirubin Negative (Negative) Urine Urobilinogen <2.0 (<2.0) mg/dL Ur Leukocyte Esterase Negative (Negative) Influenza Type A (PCR) (Not Detectd) Influenza Type B (PCR) (Not Detectd) RSV (PCR) (Not Detectd) SARS-CoV-2 (PCR) (Not Detectd) Disposition Clinical Impression: Gastroenteritis, Dehydration Disposition: ADMITTED IP TO THIS HOSP
[2022-10-11 15:29] LABS: Basophils % (A) 0 %; Eosinophils # (A) 0.1 k/uL (0-0.7); Eosinophils % (A) 1 %; HCT 36.1 % (34.0-46.0); HGB 11.9 gm/dL (11.4-16.0); Lymphocytes # (A) 1.2 k/uL (1.0-4.8); Lymphocytes % (A) 10 %; MCH 31.6 pg (25.0-35.0); MCHC 33.1 g/dL (31.0-37.0); MCV 95.4 fL (80.0-100.0); Mean Platelet Volume 8.2; Monocytes # (A) 0.7 k/uL (0-1.0); Monocytes % (A) 6 %; Neutrophils # (A) 9.9 k/uL (1.3-7.7); Neutrophils % (A) 82 %; Platelet Count 112 k/uL (150-450); RBC 3.78 m/uL (3.80-5.40); RDW 15.8 % (11.5-15.5); WBC 12.1 k/uL (3.8-10.6)
[2022-10-11 15:44] LABS: Albumin 3.6 g/dL (3.5-5.0); Calcium 8.6 mg/dL (8.4-10.2); Potassium 4.6 mmol/L (3.5-5.1); Total Bilirubin 2.3 mg/dL (0.2-1.3); Total Protein 6.1 g/dL (6.3-8.2)
[2022-10-11] MEDS ORDERED: DIPHENOX-ATROP 2.5-0.025 MG 1 EACH TAB PO STA (17:26)
[2022-10-11 17:45] LABS: Appearance,Urine Clear (Clear); Bilirubin,Urine Negative (Negative); Blood,Urine Negative (Negative); Color,Urine Yellow; Glucose,Urine (UA) Negative (Negative); Ketones,Urine Negative (Negative); Leukocyte Esterase,Urine Negative (Negative); Nitrite,Urine Negative (Negative); Protein,Urine Negative (Negative); Specific Gravity,Urine 1.009 (1.001-1.035); Urobilinogen,Urine <2.0 mg/dL (<2.0)
[2022-10-11] MEDS ORDERED: DIPHENOX-ATROP STARTER PACK 8 TAB BTL PO STA (17:55)
[2022-10-11] MEDS ORDERED: ONDANSETRON 4 MG ODT STARTER PACK 2 TAB BTL PO STA (17:55)
[2022-10-11] MEDS ORDERED: HYDROcodone/APAP 5-325MG 1 EACH TAB PO PRN (18:14)
[2022-10-11] MEDS ORDERED: NALOXONE 0.4 MG/ML 1 ML VIAL IV PRN (18:14)
[2022-10-11] MEDS ORDERED: ACETAMINOPHEN TAB 325 MG TAB PO PRN (18:14)
[2022-10-11] MEDS ORDERED: IOPAMIDOL CONTRAST (ORAL USE) VIAL PO PRN (19:06)
[2022-10-11] MEDS: SODIUM CHLORIDE 0.9% 1,000 ML IV SCH (19:24)
--- NOTE | 2022-10-11 20:32 | P.HPIM ---
History of Present Illness H&P Date: 10/11/22 Chief Complaint: Nausea and diarrhea unable to control her bowel movement as sociated with de History and physical Dictation on 10/11/[address] Olivia. Chief complaint: The patient hospital Mr. Collazo did call the office and stated that he could not take care of his anymore with the underlying symptoms of gastroenteritis with nausea and diarrhea vague abdominal pain. Patient advised to go to the ER at [facility] where she was seen evaluated by the nurse practitioner. Laboratory was done with the underlying leukocytosis negative urine analysis and diarrhea with incontinent, Tender abdomen with the underlying history of chronic kidney disease computed tomography scan of the abdomen ordered with no IV contrast. Result is pending History of present illness: 87 years old white female has been battling with the underlying multiple medical problem added to her psychiatric problem. Patient recently admitted to the [facility] in [facility] seen by the psychiatrist and stayed 3-4 days and send her home today as She arrived home she was nauseated questionable vomiting but she had diarrhea with no ability to control her bowel movement. Unfortunately we don't know from the psychiatric hospital what medication the used however as discussion with her he stated that they started her on Zyprexa 2.5 mg twice a day and she calm down with the underlying history of manic episode of bipolar however we don't have the records from the psychiatry yet as she just was discharged. The underlying history of multiple medical problems History of hypertension with hypertensive heart disease Underlying coronary artery disease and O2 bifemoral bypass was treated by Dr. Perkins vascular surgeon She has underlying rheumatoid arthritis and treated by recreation manager Dr. Mantilla. She had a history of coronary artery disease atherosclerotic heart disease and was treated by Dr. Jernigan seaming inspector. She had a chronic kidney disease and has been treated by the nephrology Dr. Arriaga and her nurse practitioner She had psychiatric disorder and recently she had manic episode and she was called the police she had tendency to go out the home with agitation and argumentative. With decrease her intake. Her psychiatric was Dr. Miller as outpatient History of pulmonary hypertension seen by Dr. Ruiz. Pulmonary and critical care. Since she has been into the psychiatry hospital his [facility] her medication has been changed and as she has recently discharge we don't have any record of it. Social history she is had 2 boys grown-up and history of smoking cigarettes started age of [age] years old and quit in 1993 Alcohol use is rare no illicits of driving Her ALLERGY to [place], latex tape, penicillin. History of depression and anxiety and currently bipolar disorder and diabetes mellitus type 2 and she is on insulin intermittently and she has been seen by Dr. rom Courtney the towel cabinet repairer. She had insulin treatment with Humalog quick pen on the scale as well as Levemir by Dr. rom Courtney. History of diaphragmatic hernia, anemia, Zarate esophagitis without dysplasia was seen by Dr. Vandana Mejia peripheral vascular disorder and disease hyperlipidemia major depressive disorder scoliosis nonrheumatic aortic valve disorder spinal stenosis varicose veins. 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 #5 endocrine diabetes mellitus and the question about hypothyroidism we'll be checking she is currently not in any thyroid medication #6 history of pulmonary hypertension and shortness of breath was treated by Dr. Ruiz with Tadafil #7 musculus Pletal rheumatoid arthritis and has been treated by ceo with Enbrel subcutaneously. 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 #9 anal incontinence with the diarrhea within the last 2-3 days as she has been in the [facility]. Physical exam: Vital signs reviewed with the hypertension uncontrolled. Laboratory reviewed with mild elevation was lipase as well as leukocytosis. Exam: Head was normocephalic and atraumatic pupils equal reactive she had a pale co njunctiva hearing mildly diminished oropharynx edentulous use dentures upper and lower and uvula midline no evidence of infection, nose was negative no rhinitis. The neck was supple no JVD no thyromegaly no lymphadenopathy trachea midline Chest: Lung is clear with normal inspiratory expiratory, she had underlying kyphoscoliosis of the dorsal spine with the estimated 3 with a history of pulmonary hypertension Heart: Regular sinus rhythm no currently chest pain Abdomen: Four-quadrant tenderness with palpation with multiple scars from her previous surgery and incontinent. Genitourinary she had some discomfort on the suprapubic area as well. Her urine was negative. Extremities: She had multiple ecchymosis on both lower extremities she had good pulses on the dorsalis pedis and posterior tibial and the popliteal. She had the skin dryness with muscle wasting. She had history of edema in the past however stop present at this time with probably she is dehydrated with diarrhea. Assessment: Status post discharge from [facility] #2 gastrointestinal disorder with the diarrhea and nausea so far did not vomit in the hospital #3 dehydration #4 family on able to take care of the patient mainly her as she lived with him and he is elderly as well #4 hypertension was hypertensive heart disease uncontrolled #5 diabetes mellitus type 2 insulin-dependent #6 pulmonary hypertension #7 peripheral vascular disease with the or to bifemoral bypass #8 hyperlipidemia #History of steroid prednisone dependent. Chronic kidney disease stage III. Plan: #1 obtaining the CAT scan of the abdomen and pelvis without IV contrast #2 hydration #3 controlling the blood pressure number for obtaining the records from the [facility] to reassess her medication #4 readjusting her medication #5 obtain stool sample for diarrhea infectious. #6 gentle hydration. #7 starting home medication with significant adjustment. Farther treatment depend on the patient improvement and condition. Discussed with her in detail. Past Medical History Past Medical History: Cancer, Diabetes Mellitus, GERD/Reflux, Hyperlipidemia, Hypertension, Memory Impairment, Rheumatoid Arthritis (RA), Thyroid Disorder Additional Past Medical History / Comment(s): States age related memory impairment. 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 Hx right breast cancer had sx and radiaiton tx,, aortic aneurysm(sx done). per [facility] "leaky heart valve" History of Any Multi-Drug Resistant Organisms: None Reported Past Surgical History: Appendectomy, Back Surgery, Breast Surgery, Heart Catheterization, Tonsillectomy, Tubal Ligation Additional Past Surgical History / Comment(s): Surgery for arortic aneurysm, s urgery on toes of bilateral feet, ablation done on back X2, had uvula removed.lt carpal tunnel release, beverly cataracts, beverly carotid endarterectomy, partial rt mastectomy. colonoscopy/egd/esophgeal dilations, laminectomy/past pain clinic procedures, bunionectomy beverly feet. Past Anesthesia/Blood Transfusion Reactions: No Reported Reaction Past Psychological History: No Psychological Hx Reported Smoking Status: Former smoker Past Alcohol Use History: Rare Past Drug Use History: None Reported - Past Family History Sister(s) Family Medical History: Cancer Additional Family Medical History / Comment(s): Aneurysm. States 3 of her sisters had cancer. Father Additional Family Medical History / Comment(s): Anerysym Mother Additional Family Medical History / Comment(s): Aneurysm Brother(s) Additional Family Medical History / Comment(s): Aneurysm Medications and Allergies Home Medications Medication Instructions Recorded Confirmed Type Omeprazole 20 mg PO DAILY PRN 07/02/16 10/03/22 History Atorvastatin [Lipitor] 20 mg PO HS 03/17/18 10/03/22 History Etanercept [Enbrel] 50 mg SQ WE 05/16/18 10/03/22 History predniSONE 5 mg PO DAILY 08/28/20 10/03/22 History Furosemide [Lasix] 40 mg PO HS 04/14/21 10/03/22 History Potassium Chloride [Klor-Con 10 ER] 10 meq PO DAILY 04/14/21 10/03/22 History Cholecalciferol [Vitamin D3 (25 50 mcg PO DAILY tablet 04/15/21 10/03/22 Rx Mcg = 1000 Iu)] Cyanocobalamin [Vitamin B-12] 1,000 mcg PO DAILY tab 04/15/21 10/03/22 Rx Metoprolol Tartrate [Lopressor] 12.5 mg PO DAILY 12/25/21 10/03/22 History Ranolazine [Ranolazine ER] 500 mg PO Q12HR 12/25/21 10/03/22 History Aspirin EC [Ecotrin Low Dose] 81 mg PO DAILY 09/17/22 10/03/22 History Levothyroxine Sodium [Synthroid] 75 mcg PO DAILY 09/17/22 10/03/22 History Methylphenidate HCl 20 mg PO DAILY 09/17/22 10/03/22 History [Methylphenidate ER] tadalafiL 10 mg PO DAILY 09/17/22 10/04/22 History Allergies Allergy/AdvReac Type Severity Reaction Status Date / Time adhesive tape Allergy Rash/Hives Verified 10/11/22 19:38 Penicillins Allergy Rash/Hives Verified 10/11/22 19:38 Physical Exam Vitals: Vital Signs Temp Pulse Resp BP Pulse Ox 10/11/22 17:56 86 18 181/70 98 10/11/22 15:52 97.7 F 10/11/22 14:27 83 18 147/78 95 Intake and Output 10/11/22 10/11/22 10/11/22 06:59 14:59 22:59 Other: Weight 49.442 kg Results CBC & Chem 7: 10/11/22 15:10 10/11/22 15:10 Labs: Abnormal Lab Results - Last 24 Hours (Table) 10/11/22 10/11/22 10/11/22 Range/Units 15:10 15:10 15:10 WBC 12.1 H (3.8-10.6) k/uL RBC 3.78 L (3.80-5.40) m/uL RDW 15.8 H (11.5-15.5) % Plt Count 112 L (150-450) k/uL Neutrophils # 9.9 H (1.3-7.7) k/uL Sodium 135 L (137-145) mmol/L BUN 32 H (7-17) mg/dL Creatinine 1.50 H (0.52-1.04) mg/dL Glucose 179 H (74-99) mg/dL Total Bilirubin 2.3 H (0.2-1.3) mg/dL C-Reactive Protein 4.1 H (<1.0) mg/dL Total Protein 6.1 L (6.3-8.2) g/dL Amylase 131 H (30-110) U/L
[2022-10-11 20:47] LABS: Glucose,Whole Blood 175 mg/dL (70-110)
[2022-10-11] MEDS ORDERED: DEXTROSE 50% SYRINGE 50 ML IVP PRN ×2 (20:55)
[2022-10-11] MEDS ORDERED: OLANZapine ODT 5 MG TAB PO SCH (21:00)
[2022-10-11] MEDS ORDERED: ATORVASTATIN 20 MG TAB PO SCH (21:00)
[2022-10-11] MEDS: OLANZapine 2.5 MG TAB PO SCH (21:22)
[2022-10-11] MEDS: METOPROLOL TARTRATE 12.5 MG TAB PO SCH (21:22)
[2022-10-11] MEDS: amLODIPine 5 MG TAB PO SCH (21:22)
[2022-10-11] MEDS: RANOLAZINE 500 MG TAB.ER.12H PO SCH (21:22)
[2022-10-11] MEDS: INSULIN ASPART (NovoLOG) 100 UNIT/ML VIAL SQ SCH (21:22)
--- NOTE | 2022-10-11 21:26 | CT ---
EXAMINATION TYPE: CT abdomen pelvis wo con DATE OF EXAM: 10/11/2022 COMPARISON: 05/16/2018 HISTORY: abdominal pain, gastroenteritis. CT DLP: 398.90 mGycm Examination of the solid and hollow viscera is limited given the lack of contrast. FINDINGS: LUNG BASES: No evidence for nodule. No evidence for infiltrate. Large fixed hernia noted LIVER/GB: The gallbladder is surgically absent. No space-occupying hepatic lesion. PANCREAS: No pancreatic mass identified. No inflammatory process seen. SPLEEN: No evidence for splenomegaly. No intrasplenic lesions seen. ADRENALS: No adrenal nodules identified. No evidence for thickening. KIDNEYS: No evidence for renal mass. No nephrolithiasis. No hydronephrosis. BOWEL: Appendix has a normal appearance. No evidence of bowel obstruction. No inflammatory process. S igmoid diverticulosis without diverticulitis. Lymph nodes: No evidence for adenopathy greater than 1 cm. Abdominal aorta: Atheromatous changes seen. No evidence for aneurysm. Genital organs: No significant abnormality. Other: Small fat-containing anterior abdominal wall hernia. Chronic compression fracture of L1. Grade 1 anterolisthesis L5 on S1. Vacuum disc. IMPRESSION: 1. Moderate fixed hiatal hernia. 2. 2 small fat-containing ventral hernias. 3. Colonic diverticulosis without diverticulitis.
[2022-10-12 06:23] LABS: Glucose,Whole Blood 111 mg/dL (70-110)
[2022-10-12] MEDS ORDERED: LEVOTHYROXINE 75 MCG TAB PO SCH (06:30)
[2022-10-12] MEDS: INSULIN ASPART (NovoLOG) 100 UNIT/ML VIAL SQ SCH ×4 (06:40→20:40)
[2022-10-12 08:45] LABS: Basophils # (A) 0.02 X 10*3/uL (0.00-0.10); Basophils % (A) 0.3 %; Eosinophils # (A) 0.11 X 10*3/uL (0.04-0.35); Eosinophils % (A) 1.6 %; HCT 29.7 % (37.2-46.3); HGB 9.3 g/dL (12.0-15.0); Immature Grans, Automated 0.3 %; Lymphocytes % (A) 26.2 %; MCH 30.8 pg (27.0-32.0); MCHC 31.3 g/dL (32.0-37.0); MCV 98.3 fL (80.0-97.0); Mean Platelet Volume 11.2 fL (9.5-12.2); Monocytes # (A) 0.89 X 10*3/uL (0.20-1.00); NRBC Per 100 WBC 0 /100 WBCS (0.0-0.0); Neutrophils # (A) 4.02 X 10*3/uL (1.80-7.70); Neutrophils % (A) 58.6 %; Platelet Count 105 X 10*3/uL (140-440); RBC 3.02 X 10*6/uL (4.10-5.20); RDW 16.3 % (11.5-14.5); WBC 6.86 X 10*3/uL (4.50-10.00)
[2022-10-12] MEDS ORDERED: METOPROLOL TARTRATE 12.5 MG TAB PO SCH (09:00)
[2022-10-12 09:05] LABS: African American GFR (CKD) 35.9 (60.0-200.0); BUN/Creat Ratio 21.13 Ratio (12.00-20.00); Blood Urea Nitrogen 31.7 mg/dL (9.0-27.0); Chloride 102 mmol/L (96-109); Chol/HDL Ratio 2.73 Ratio; Glucose 114 mg/dL (70-110); LDL Cholesterol,Calculated 42.3 mg/dL (0.0-131.0); Potassium 4.3 mmol/L (3.5-5.5); Sodium 136 mmol/L (135-145)
[2022-10-12] MEDS: SODIUM CHLORIDE 0.9% 1,000 ML IV SCH ×2 (09:07→21:08)
[2022-10-12] MEDS: CHOLECALCIFEROL 25 MCG (1000 IU) TABLET PO SCH (09:51)
[2022-10-12] MEDS: METOPROLOL TARTRATE 12.5 MG TAB PO SCH ×2 (09:51→21:07)
[2022-10-12] MEDS: CHOLESTYRAMINE (WITH SUGAR) 4 GM PACKET PO SCH ×3 (09:51→18:17)
[2022-10-12] MEDS: CYANOCOBALAMIN 500 MCG TAB PO SCH (09:51)
[2022-10-12] MEDS: ASPIRIN 81 MG PO SCH (09:51)
[2022-10-12] MEDS: RANOLAZINE 500 MG TAB.ER.12H PO SCH ×2 (09:51→21:07)
[2022-10-12] MEDS: OLANZapine 2.5 MG TAB PO SCH ×2 (09:52→21:07)
[2022-10-12] MEDS: METHYLPHENIDATE HCL 10 MG TAB PO SCH ×2 (09:52→12:46)
[2022-10-12] MEDS: amLODIPine 5 MG TAB PO SCH (09:52)
[2022-10-12] MEDS: POTASSIUM CHLORIDE ER 10 MEQ TAB.ER.PRT PO SCH (09:52)
[2022-10-12] MEDS: NON FORMULARY DRUG (Tadalafil [Tadalafil] 10 MG Tablet) PO SCH (09:59)
[2022-10-12 12:02] LABS: Glucose,Whole Blood 119 mg/dL (70-110)
--- NOTE | 2022-10-12 13:32 | P.PN ---
Subjective Progress Note Date: 10/12/22 Principal diagnosis: Progress note Date of service 10/12/[address] Mensah Patient seen today evaluated in [id number] Patient stated that she is feeling better but still still running out of her with inability to control her anal orifices or the rectum and she had the loose bowel. We did start her on Questran and order the blood tests and stool test as well and we will be consulting Dr. Rose the surgeon at least 4 her opinion if she has any review for how to help with the patient with inability to control the BM. I did review the laboratories were finding that her TSH mild elevated, and we adjusted her medication Synthroid from 75 g every morning to 88 g by mouth every morning Because of her underlying history of bipolar disorder and manic attack and admission to [facility] with the development of the area and nausea we requested the records from the previous hospital admission and the change of her medication and their diagnosis which is not available to us. Procedures none in regards of her blood pressure she has significant drop and we placed parameter to the amlodipine to be withheld if systolic blood pressure 120 or below. Because of the dehydration and diarrhea which has been stated by the patient that she did not eat for the last 3 days with the soiling herself and we send the stool sample for infectious diarrhea result is pending also we sent the sample for stool for Hemoccult and the result is pending. Patient with history of diabetes mellitus and monitored and covered with insulin NovoLog to scale patient previously was on Levemir has not been started yet until patient starts to eat to avoid hypoglycemia. For the anal incontinent restarted her on Questran, she is also on Lomotil, and we consulted Dr. Garza surgeon to do help us if she has any other options. We requested inpatient rehabilitation for ambulation with a history of frequent fall at home. We did also discuss with the patient today that she may need jail for rehabilitation as well as good turgor able to ambulate and strengthen, social service also was consulted for also future vacation planner. On physical exam Her vital sign stable and afebrile however the blood pressure dropped. Head was normocephalic and atraumatic pale. And antiemetic dentures upper and lower able to swallow no history of neurological abnormalities or stroke in the past but she had history of peripheral vascular disease and O2 from bypass by Dr. Perkins in [place] vascular surgeon The neck was supple and she had advanced cervical arthritis Chest is clear no wheezes no rhonchi's she had history of rib fracture. In the past Heart regular sinus rhythm Abdomen: She had a computed tomography scan of the abdomen lost night and results indicating diverticulosis without diverticulitis and he had large fixed hernia hiatal, she had chronic compression of the L1, she had grade 1 anterolisthesis of L5 on S1 and she had a small fat containing anterior abdominal wall ventral hernia. Extremities no edema positive pulses multiple ecchymosis with the underlying history of still arthritis and rheumatoid arthritis has been treated by funeral counselor Dr. Gomez with the use of Enbrel which has been held now. CRP was elevated on admission she has also hyponatremia on admission, chronic kidney disease stage III and leukocytosis which has been improved and normalized in the leukocytic count him to normal and the hyponatremia and has been also normalize with the IV fluid with the underlying dehydration. Assessment: #1 no 0 has been results #2 still have the diarrhea and laboratory result is pending #3 she had inability to control the anal sphincter and will be asking for consultation with the surgery Dr. White for help. #4 dehydration with the patient admitted that she was not eating at a frequent fall and no drinking afraid of the diarrhea and inability to control her bowel movement #5 chronic artery disease atherosclerotic heart disease #6 recent history of [facility] and discharge and change of her medication will try to obtain records. #7 rheumatoid arthritis and osteoarthritis generalized, #8 history of L1 compression fracture and history of L5 on S1 grade 1 anterolisthesis. #Laboratory indicating drop of hemoglobin to 9 with the anemia of iron deficiency versus chronic disease laboratory pending for iron studies and fecal leukocyte. Plan: We'll continue the IV fluid for 1 day more obtaining BMP and CBC in a.m. We'll obtain iron study Consult surgery Dr. White for her expertise and opinion. And if there is any other alternative for the weakness of the sphincter of the anal in the rectum. Continue with the rehabilitation evaluation Future plan for jail for deconditioning and for rehabilitation. Discussed with her nurse MICHELLE Marshall Objective - Vital Signs Vital signs: Vital Signs Temp 98.0 F 10/12/22 06:24 Pulse 71 10/12/22 06:24 Resp 18 10/12/22 09:51 BP 113/67 10/12/22 06:24 Pulse Ox 96 10/12/22 06:24 FiO2 Intake & Output 10/11/22 10/12/22 10/12/22 18:59 06:59 18:59 Weight 49.442 kg 49.442 kg Other: Voiding Method Bedside Commode Bedside Commode # Voids 3 1 # Bowel Movements 1 1 - Labs CBC & Chem 7: 10/12/22 04:43 10/12/22 04:43 Labs: Abnormal Lab Results - Last 24 Hours (Table) 10/11/22 10/11/22 10/11/22 Range/Units 15:10 15:10 15:10 WBC 12.1 H (3.8-10.6) k/uL RBC 3.78 L (3.80-5.40) m/uL Hgb (12.0-15.0) g/dL Hct (37.2-46.3) % MCV (80.0-97.0) fL MCHC (32.0-37.0) g/dL RDW 15.8 H (11.5-15.5) % Plt Count 112 L (150-450) k/uL Neutrophils # 9.9 H (1.3-7.7) k/uL Sodium 135 L (137-145) mmol/L Anion Gap (10.00-18.00) mmol/L BUN 32 H (7-17) mg/dL Creatinine 1.50 H (0.52-1.04) mg/dL Est GFR (CKD-EPI)AfAm (60.0-200.0) Est GFR (CKD-EPI)NonAf (60.0-200.0) BUN/Creatinine Ratio (12.00-20.00) Ratio Glucose 179 H (74-99) mg/dL POC Glucose (mg/dL) (70-110) mg/dL Hemoglobin A1c (0.0-6.0) % Calcium (8.7-10.3) mg/dL Total Bilirubin 2.3 H (0.2-1.3) mg/dL C-Reactive Protein 4.1 H (<1.0) mg/dL Total Protein 6.1 L (6.3-8.2) g/dL HDL Cholesterol (40.00-60.00) mg/dL Amylase 131 H (30-110) U/L Procalcitonin (0.02-0.09) ng/mL TSH (0.350-5.500) uIU/mL 10/11/22 10/11/22 10/12/22 Range/Units 15:20 20:45 04:43 WBC (3.8-10.6) k/uL RBC (3.80-5.40) m/uL Hgb (12.0-15.0) g/dL Hct (37.2-46.3) % MCV (80.0-97.0) fL MCHC (32.0-37.0) g/dL RDW (11.5-15.5) % Plt Count (150-450) k/uL Neutrophils # (1.3-7.7) k/uL Sodium (137-145) mmol/L Anion Gap (10.00-18.00) mmol/L BUN (7-17) mg/dL Creatinine (0.52-1.04) mg/dL Est GFR (CKD-EPI)AfAm (60.0-200.0) Est GFR (CKD-EPI)NonAf (60.0-200.0) BUN/Creatinine Ratio (12.00-20.00) Ratio Glucose (74-99) mg/dL POC Glucose (mg/dL) 175 H (70-110) mg/dL Hemoglobin A1c 6.1 H (0.0-6.0) % Calcium (8.7-10.3) mg/dL Total Bilirubin (0.2-1.3) mg/dL C-Reactive Protein (<1.0) mg/dL Total Protein (6.3-8.2) g/dL HDL Cholesterol (40.00-60.00) mg/dL Amylase (30-110) U/L Procalcitonin 0.13 H (0.02-0.09) ng/mL TSH (0.350-5.500) uIU/mL 10/12/22 10/12/22 10/12/22 Range/Units 04:43 04:43 06:22 WBC (3.8-10.6) k/uL RBC 3.02 L (3.80-5.40) m/uL Hgb 9.3 L (12.0-15.0) g/dL Hct 29.7 L (37.2-46.3) % MCV 98.3 H (80.0-97.0) fL MCHC 31.3 L (32.0-37.0) g/dL RDW 16.3 H (11.5-15.5) % Plt Count 105 L (150-450) k/uL Neutrophils # (1.3-7.7) k/uL Sodium (137-145) mmol/L Anion Gap 9.00 L (10.00-18.00) mmol/L BUN 31.7 H (7-17) mg/dL Creatinine (0.52-1.04) mg/dL Est GFR (CKD-EPI)AfAm 35.9 L (60.0-200.0) Est GFR (CKD-EPI)NonAf 31.0 L (60.0-200.0) BUN/Creatinine Ratio 21.13 H (12.00-20.00) Ratio Glucose 114 H (74-99) mg/dL POC Glucose (mg/dL) 111 H (70-110) mg/dL Hemoglobin A1c (0.0-6.0) % Calcium 8.0 L (8.7-10.3) mg/dL Total Bilirubin (0.2-1.3) mg/dL C-Reactive Protein (<1.0) mg/dL Total Protein (6.3-8.2) g/dL HDL Cholesterol 39.50 L (40.00-60.00) mg/dL Amylase (30-110) U/L Procalcitonin (0.02-0.09) ng/mL TSH 5.760 H (0.350-5.500) uIU/mL 10/12/22 Range/Units 12:00 WBC (3.8-10.6) k/uL RBC (3.80-5.40) m/uL Hgb (12.0-15.0) g/dL Hct (37.2-46.3) % MCV (80.0-97.0) fL MCHC (32.0-37.0) g/dL RDW (11.5-15.5) % Plt Count (150-450) k/uL Neutrophils # (1.3-7.7) k/uL Sodium (137-145) mmol/L Anion Gap (10.00-18.00) mmol/L BUN (7-17) mg/dL Creatinine (0.52-1.04) mg/dL Est GFR (CKD-EPI)AfAm (60.0-200.0) Est GFR (CKD-EPI)NonAf (60.0-200.0) BUN/Creatinine Ratio (12.00-20.00) Ratio Glucose (74-99) mg/dL POC Glucose (mg/dL) 119 H (70-110) mg/dL Hemoglobin A1c (0.0-6.0) % Calcium (8.7-10.3) mg/dL Total Bilirubin (0.2-1.3) mg/dL C-Reactive Protein (<1.0) mg/dL Total Protein (6.3-8.2) g/dL HDL Cholesterol (40.00-60.00) mg/dL Amylase (30-110) U/L Procalcitonin (0.02-0.09) ng/mL TSH (0.350-5.500) uIU/mL
--- NOTE | 2022-10-12 15:07 | P.GSCN ---
History of Present Illness Consult date: 10/12/22 History of present illness: CHIEF COMPLAINT: Diarrhea HISTORY OF PRESENT ILLNESS: This is a 87-year-old female who presented with nausea vomiting and diarrhea. Patient has been having diarrhea for 3 days. She has had multiple episodes each day. The stool is very watery. She denies any blood in the stool. She also complains of stomach ache. Patient had been on a ntibiotics a couple weeks ago for UTI. She also was discharged yesterday from the geriatric psychiatric unit. Medical service has ordered stool studies including stool for C. diff. Patient had a computed tomography scan abdomen and pelvis without contrast showed a moderate fixed hiatal hernia. 2 small fat- containing ventral hernias. Colonic diverticulosis without diverticulitis. There is no evidence of bowel obstruction. Patient does report having stool incontinence since the diarrhea episodes have started. She reports that she has chronic shoulder and back pain which causes her to take more time to get to the bathroom. Patient reports never having had a colonoscopy. She reports that she's been told that her lungs are to bed to have a colonoscopy. Her vomiting has stopped. She has had multiple abdominal surgeries that include cholecystectomy, appendectomy, abdominal aortic aneurysm repair. Patient denies any fever chills or sweats. Patient has been started on Questran and also give Lomotil. She had no improvement with Imodium. PAST MEDICAL HISTORY: See below and pulmonary hypertension PAST SURGICAL HISTORY: See below MEDICATIONS: See below ALLERGIES: See below SOCIAL HISTORY: No illicit drug use. REVIEW OF SYSTEMS: CONSTITUTIONAL: Denies fever or chills. HEENT: Denies blurred vision, vision changes, or eye pain. Denies hemoptysis CARDIOVASCULAR: Denies chest pain or pressure. RESPIRATORY: No shortness of breath. GASTROINTESTINAL: See HPI for pertinent findings HEMATOLOGIC: Denies bleeding disorders. GENITOURINARY: Denies any blood in urine or increased urinary frequency. SKIN: Denies pruitis. Denies rash. PHYSICAL EXAM: VITAL SIGNS: Reviewed GENERAL: Well-developed in no acute distress. HEENT: No sclera icterus. Extraocular movements grossly intact. Moist buccal mucosa. Head is atraumatic, normocephalic. No nasal drainage. ABDOMEN: Soft. Mildly distended. Lower abdominal tenderness mostly on the left side. Midline scar with evidence ventral hernia that is reducible. NEUROLOGIC: Alert and oriented. Cranial nerves II through XII grossly intact. LABORATORY DATA: WBC 12.1 down to 6.86 Hgb 11.9-9.3 platelets 105 Sodium 136 potassium 4.3 creatinine 1.5 CRP 4.1 Total bilirubin 2.3 AST ALT alk phos within normal range lipase 87 Influenza, RSV and COVID-19 not detected Stool studies and stool for C. diff pending IMAGING: Computed tomography scan abdomen and pelvis showing moderate fixed hiatal hernia. 2 small fat-containing ventral hernias. Colonic diverticulosis without diverticulitis ASSESSMENT: 1. Nausea, vomiting and diarrhea 2. Possible gastroenteritis also recent antibiotic use. Agree with ruling out c.diff 3. 2 small fat-containing ventral hernias PLAN: -Further recommendations forthcoming per surgeon -Continue supportive care -Continue IV fluids -Follow up on stool studies and stool for occult blood Physician Wheat Shipper note has been reviewed by physician. Signing provider agrees with the documented findings, assessment, and plan of care. Past Medical History Past Medical History: Cancer, Diabetes Mellitus, GERD/Reflux, Hyperlipidemia, Hypertension, Memory Impairment, Rheumatoid Arthritis (RA), Thyroid Disorder Additional Past Medical History / Comment(s): States age related memory impairment. 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 Hx right breast cancer had sx and radiaiton tx,, aortic aneurysm(sx done). per [facility] "leaky heart valve" History of Any Multi-Drug Resistant Organisms: None Reported Past Surgical History: Appendectomy, Back Surgery, Breast Surgery, Heart Catheterization, Tonsillectomy, Tubal Ligation Additional Past Surgical History / Comment(s): Surgery for arortic aneurysm, surgery on toes of bilateral feet, ablation done on back X2, had uvula removed.lt carpal tunnel release, beverly cataracts, beverly carotid endarterectomy, partial rt mastectomy. colonoscopy/egd/esophgeal dilations, laminectomy/past pain clinic procedures, bunionectomy beverly feet. Past Anesthesia/Blood Transfusion Reactions: No Reported Reaction Past Psychological History: No Psychological Hx Reported Smoking Status: Former smoker Past Alcohol Use History: Rare Past Drug Use History: None Reported - Past Family History Sister(s) Family Medical History: Cancer Additional Family Medical History / Comment(s): Aneurysm. States 3 of her sisters had cancer. Father Additional Family Medical History / Comment(s): Anerysym Mother Additional Family Medical History / Comment(s): Aneurysm Brother(s) Additional Family Medical History / Comment(s): Aneurysm Medications and Allergies Home Medications Medication Instructions Recorded Confirmed Type Omeprazole 20 mg PO DAILY PRN 07/02/16 10/11/22 History Atorvastatin [Lipitor] 20 mg PO HS 03/17/18 10/11/22 History Etanercept [Enbrel] 50 mg SQ WE 05/16/18 10/11/22 History predniSONE 5 mg PO DAILY 08/28/20 10/11/22 History Furosemide [Lasix] 40 mg PO HS 04/14/21 10/11/22 History Potassium Chloride [Klor-Con 10 ER] 10 meq PO DAILY 04/14/21 10/11/22 History Cholecalciferol [Vitamin D3 (25 50 mcg PO DAILY tablet 04/15/21 10/11/22 Rx Mcg = 1000 Iu)] Cyanocobalamin [Vitamin B-12] 1,000 mcg PO DAILY tab 04/15/21 10/11/22 Rx Metoprolol Tartrate [Lopressor] 12.5 mg PO DAILY 12/25/21 10/11/22 History Ranolazine [Ranolazine ER] 500 mg PO Q12HR 12/25/21 10/11/22 History Aspirin EC [Ecotrin Low Dose] 81 mg PO DAILY 09/17/22 10/11/22 History Levothyroxine Sodium [Synthroid] 75 mcg PO DAILY 09/17/22 10/11/22 History Methylphenidate HCl 20 mg PO DAILY 09/17/22 10/11/22 History [Methylphenidate ER] tadalafiL 10 mg PO DAILY 09/17/22 10/11/22 History Loperamide [Imodium] 2 mg PO QID PRN 10/11/22 10/11/22 History OLANZapine [ZyPREXA] 2.5 mg PO BID 10/11/22 10/11/22 History lisinopriL [Zestril] 10 mg PO BID 10/11/22 10/11/22 History Allergies Allergy/AdvReac Type Severity Reaction Status Date / Time adhesive tape Allergy Rash/Hives Verified 10/11/22 19:38 Penicillins Allergy Rash/Hives Verified 10/11/22 19:38 Surgical - Exam Vital Signs Pulse Resp BP Pulse Ox 83 18 147/78 95 04/10/23 14:27 10/11/22 14:27 10/11/22 14:27 10/11/22 14:27 Results - Labs 10/12/22 04:43 10/12/22 04:43 Abnormal Lab Results - Last 24 Hours (Table) 10/11/22 10/11/22 10/11/22 Range/Units 15:10 15:10 15:10 WBC 12.1 H (3.8-10.6) k/uL RBC 3.78 L (3.80-5.40) m/uL Hgb (12.0-15.0) g/dL Hct (37.2-46.3) % MCV (80.0-97.0) fL MCHC (32.0-37.0) g/dL RDW 15.8 H (11.5-15.5) % Plt Count 112 L (150-450) k/uL Neutrophils # 9.9 H (1.3-7.7) k/uL Sodium 135 L (137-145) mmol/L Anion Gap (10.00-18.00) mmol/L BUN 32 H (7-17) mg/dL Creatinine 1.50 H (0.52-1.04) mg/dL Est GFR (CKD-EPI)AfAm (60.0-200.0) Est GFR (CKD-EPI)NonAf (60.0-200.0) BUN/Creatinine Ratio (12.00-20.00) Ratio Glucose 179 H (74-99) mg/dL POC Glucose (mg/dL) (70-110) mg/dL Hemoglobin A1c (0.0-6.0) % Calcium (8.7-10.3) mg/dL Total Bilirubin 2.3 H (0.2-1.3) mg/dL C-Reactive Protein 4.1 H (<1.0) mg/dL Total Protein 6.1 L (6.3-8.2) g/dL HDL Cholesterol (40.00-60.00) mg/dL Amylase 131 H (30-110) U/L Procalcitonin (0.02-0.09) ng/mL TSH (0.350-5.500) uIU/mL Stool Lactoferrin (NEGATIVE) 10/11/22 10/11/22 10/12/22 Range/Units 15:20 20:45 04:43 WBC (3.8-10.6) k/uL RBC (3.80-5.40) m/uL Hgb (12.0-15.0) g/dL Hct (37.2-46.3) % MCV (80.0-97.0) fL MCHC (32.0-37.0) g/dL RDW (11.5-15.5) % Plt Count (150-450) k/uL Neutrophils # (1.3-7.7) k/uL Sodium (137-145) mmol/L Anion Gap (10.00-18.00) mmol/L BUN (7-17) mg/dL Creatinine (0.52-1.04) mg/dL Est GFR (CKD-EPI)AfAm (60.0-200.0) Est GFR (CKD-EPI)NonAf (60.0-200.0) BUN/Creatinine Ratio (12.00-20.00) Ratio Glucose (74-99) mg/dL POC Glucose (mg/dL) 175 H (70-110) mg/dL Hemoglobin A1c 6.1 H (0.0-6.0) % Calcium (8.7-10.3) mg/dL Total Bilirubin (0.2-1.3) mg/dL C-Reactive Protein (<1.0) mg/dL Total Protein (6.3-8.2) g/dL HDL Cholesterol (40.00-60.00) mg/dL Amylase (30-110) U/L Procalcitonin 0.13 H (0.02-0.09) ng/mL TSH (0.350-5.500) uIU/mL Stool Lactoferrin (NEGATIVE) 10/12/22 10/12/22 10/12/22 Range/Units 04:43 04:43 06:22 WBC (3.8-10.6) k/uL RBC 3.02 L (3.80-5.40) m/uL Hgb 9.3 L (12.0-15.0) g/dL Hct 29.7 L (37.2-46.3) % MCV 98.3 H (80.0-97.0) fL MCHC 31.3 L (32.0-37.0) g/dL RDW 16.3 H (11.5-15.5) % Plt Count 105 L (150-450) k/uL Neutrophils # (1.3-7.7) k/uL Sodium (137-145) mmol/L Anion Gap 9.00 L (10.00-18.00) mmol/L BUN 31.7 H (7-17) mg/dL Creatinine (0.52-1.04) mg/dL Est GFR (CKD-EPI)AfAm 35.9 L (60.0-200.0) Est GFR (CKD-EPI)NonAf 31.0 L (60.0-200.0) BUN/Creatinine Ratio 21.13 H (12.00-20.00) Ratio Glucose 114 H (74-99) mg/dL POC Glucose (mg/dL) 111 H (70-110) mg/dL Hemoglobin A1c (0.0-6.0) % Calcium 8.0 L (8.7-10.3) mg/dL Total Bilirubin (0.2-1.3) mg/dL C-Reactive Protein (<1.0) mg/dL Total Protein (6.3-8.2) g/dL HDL Cholesterol 39.50 L (40.00-60.00) mg/dL Amylase (30-110) U/L Procalcitonin (0.02-0.09) ng/mL TSH 5.760 H (0.350-5.500) uIU/mL Stool Lactoferrin (NEGATIVE) 10/12/22 10/12/22 Range/Units 07:36 12:00 WBC (3.8-10.6) k/uL RBC (3.80-5.40) m/uL Hgb (12.0-15.0) g/dL Hct (37.2-46.3) % MCV (80.0-97.0) fL MCHC (32.0-37.0) g/dL RDW (11.5-15.5) % Plt Count (150-450) k/uL Neutrophils # (1.3-7.7) k/uL Sodium (137-145) mmol/L Anion Gap (10.00-18.00) mmol/L BUN (7-17) mg/dL Creatinine (0.52-1.04) mg/dL Est GFR (CKD-EPI)AfAm (60.0-200.0) Est GFR (CKD-EPI)NonAf (60.0-200.0) BUN/Creatinine Ratio (12.00-20.00) Ratio Glucose (74-99) mg/dL POC Glucose (mg/dL) 119 H (70-110) mg/dL Hemoglobin A1c (0.0-6.0) % Calcium (8.7-10.3) mg/dL Total Bilirubin (0.2-1.3) mg/dL C-Reactive Protein (<1.0) mg/dL Total Protein (6.3-8.2) g/dL HDL Cholesterol (40.00-60.00) mg/dL Amylase (30-110) U/L Procalcitonin (0.02-0.09) ng/mL TSH (0.350-5.500) uIU/mL Stool Lactoferrin POSITIVE A (NEGATIVE) Microbiology - Last 24 Hours (Table) 10/12/22 07:36 Stool Culture - Preliminary Stool Diabetes panel 10/11/22 10/12/22 10/12/22 Range/Units 15:10 04:43 04:43 Sodium 135 L 136 (137-145) mmol/L Potassium 4.6 4.3 (3.5-5.1) mmol/L Chloride 101 102 (98-107) mmol/L Carbon Dioxide 25 25.0 (22-30) mmol/L BUN 32 H 31.7 H (7-17) mg/dL Creatinine 1.50 H 1.5 (0.52-1.04) mg/dL Glucose 179 H 114 H (74-99) mg/dL Hemoglobin A1c 6.1 H (0.0-6.0) % Calcium 8.6 8.0 L (8.4-10.2) mg/dL AST 34 (14-36) U/L ALT 21 (4-34) U/L Alkaline Phosphatase 50 (38-126) U/L Total Protein 6.1 L (6.3-8.2) g/dL Albumin 3.6 (3.5-5.0) g/dL Triglycerides 131.00 (0.00-149.00) mg/dL HDL Cholesterol 39.50 L (40.00-60.00) mg/dL Thyroid panel 10/12/22 Range/Units 04:43 TSH 5.760 H (0.350-5.500) uIU/mL Calcium panel 10/11/22 10/12/22 Range/Units 15:10 04:43 Calcium 8.6 8.0 L (8.4-10.2) mg/dL Albumin 3.6 (3.5-5.0) g/dL Pituitary panel 10/11/22 10/12/22 Range/Units 15:10 04:43 Sodium 135 L 136 (137-145) mmol/L Potassium 4.6 4.3 (3.5-5.1) mmol/L Chloride 101 102 (98-107) mmol/L Carbon Dioxide 25 25.0 (22-30) mmol/L BUN 32 H 31.7 H (7-17) mg/dL Creatinine 1.50 H 1.5 (0.52-1.04) mg/dL Glucose 179 H 114 H (74-99) mg/dL Calcium 8.6 8.0 L (8.4-10.2) mg/dL TSH 5.760 H (0.350-5.500) uIU/mL Adrenal panel 10/11/22 10/12/22 Range/Units 15:10 04:43 Sodium 135 L 136 (137-145) mmol/L Potassium 4.6 4.3 (3.5-5.1) mmol/L Chloride 101 102 (98-107) mmol/L Carbon Dioxide 25 25.0 (22-30) mmol/L BUN 32 H 31.7 H (7-17) mg/dL Creatinine 1.50 H 1.5 (0.52-1.04) mg/dL Glucose 179 H 114 H (74-99) mg/dL Calcium 8.6 8.0 L (8.4-10.2) mg/dL Total Bilirubin 2.3 H (0.2-1.3) mg/dL AST 34 (14-36) U/L ALT 21 (4-34) U/L Alkaline Phosphatase 50 (38-126) U/L Total Protein 6.1 L (6.3-8.2) g/dL Albumin 3.6 (3.5-5.0) g/dL
[2022-10-12 17:22] LABS: Glucose,Whole Blood 177 mg/dL (70-110)
[2022-10-12 20:33] LABS: Glucose,Whole Blood 126 mg/dL (70-110)
[2022-10-12] MEDS: ATORVASTATIN 10 MG TAB PO SCH (21:08)
[2022-10-12 23:49] LABS: % Iron Saturation 7.1 (12.00-45.00)
[2022-10-13] MEDS: LEVOTHYROXINE 88 MCG TAB PO SCH (06:26)
[2022-10-13] MEDS: INSULIN ASPART (NovoLOG) 100 UNIT/ML VIAL SQ SCH ×4 (06:26→21:19)
[2022-10-13 06:27] LABS: Glucose,Whole Blood 112 mg/dL (70-110)
[2022-10-13] MEDS: amLODIPine 5 MG TAB PO SCH (08:15)
[2022-10-13] MEDS: OLANZapine 2.5 MG TAB PO SCH ×2 (08:15→20:57)
[2022-10-13] MEDS: ASPIRIN 81 MG PO SCH (08:15)
[2022-10-13] MEDS: CHOLECALCIFEROL 25 MCG (1000 IU) TABLET PO SCH (08:15)
[2022-10-13] MEDS: RANOLAZINE 500 MG TAB.ER.12H PO SCH ×2 (08:15→20:57)
[2022-10-13] MEDS: CYANOCOBALAMIN 500 MCG TAB PO SCH (08:15)
[2022-10-13] MEDS: METOPROLOL TARTRATE 12.5 MG TAB PO SCH ×2 (08:15→20:57)
[2022-10-13] MEDS: CHOLESTYRAMINE (WITH SUGAR) 4 GM PACKET PO SCH ×3 (08:15→17:43)
[2022-10-13] MEDS: POTASSIUM CHLORIDE ER 10 MEQ TAB.ER.PRT PO SCH (08:16)
[2022-10-13] MEDS: METHYLPHENIDATE HCL 10 MG TAB PO SCH ×2 (08:16→13:39)
[2022-10-13] MEDS: NON FORMULARY DRUG (Tadalafil [Tadalafil] 10 MG Tablet) PO SCH (08:25)
[2022-10-13 11:56] LABS: Anisocytosis Slight; Basophils % (A) 0 %; Eosinophils # (A) 0.1 k/uL (0-0.7); Eosinophils % (A) 2 %; HCT 25.5 % (34.0-46.0); Lymphocytes # (A) 1.3 k/uL (1.0-4.8); Lymphocytes % (A) 22 %; MCH 31.5 pg (25.0-35.0); MCHC 33.8 g/dL (31.0-37.0); MCV 93.4 fL (80.0-100.0); Mean Platelet Volume 8.8; Monocytes # (A) 0.4 k/uL (0-1.0); Monocytes % (A) 6 %; Neutrophils % (A) 66 %; Platelet Count 101 k/uL (150-450); Poikilocytosis Slight; RBC 2.73 m/uL (3.80-5.40); RDW 16.4 % (11.5-15.5); WBC 6.1 k/uL (3.8-10.6)
[2022-10-13 11:57] LABS: HGB 8.6 gm/dL (11.4-16.0)
[2022-10-13 12:04] LABS: African American GFR (CKD) 48 (>60 ml/min/1.73 sqM); Anion Gap 6 mmol/L; Blood Urea Nitrogen 28 mg/dL (7-17); Calcium 7.5 mg/dL (8.4-10.2); Carbon Dioxide 21 mmol/L (22-30); Chloride 103 mmol/L (98-107); Glucose 90 mg/dL (74-99); Non-African American GFR(CKD) 42 (>60 ml/min/1.73 sqM); Potassium 4.1 mmol/L (3.5-5.1); Sodium 130 mmol/L (137-145)
[2022-10-13 13:03] LABS: Glucose,Whole Blood 121 mg/dL (70-110)
[2022-10-13] MEDS: SODIUM CHLORIDE 0.9% 1,000 ML IV SCH ×2 (13:09→21:01)
--- NOTE | 2022-10-13 14:23 | P.PN ---
Subjective Progress Note Date: 10/13/22 Principal diagnosis: #1 nausea, diarrhea with liquid stool, #2 anal incontinent #3 surgical consult for anal incontinent and weak sphincter, consult was not helpful not answering the reason for the consult surgical #4 hyponatremia with electrolyte imbalance associated with excessive diarrhea #5 chronic kidney disease improving with hydration #6 severe dehydration #7 gassed through and arthritis #8 positive stool for lactoferrin abdomen indicating inflammation #9 C. difficile laboratory, stool for Hemoccults, stool for pathogens ordered with the delayed results not available #10 anemia, iron deficiency with the progressive drop of hemoglobin no available GI physician. #11 diabetes mellitus type 2 insulin-dependent controlled #12 autonomic neuropathy secondary to diabetes considered #13 rheumatoid arthritis, osteoarthritis. 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 Progress Date of service 10/13/[address] Olivia Patient seen evaluated [id number] Discussed with patient and her and her son the plan of care. Discussed with her nurse MICHELLE Cui Reviewed the surgical consult Reviewed the laboratory and a stool testing which was not done and not completed yet. Patient had stool bowel wet 30 diarrhea this morning however the sample was not obtained. Patient is improving clinically and the blood pressure improving and controlled Diabetes mellitus has been controlled and monitored and covered with insulin to scale no evidence of hypoglycemia Only result found on the stool ,, stool lactoferrin positive suggestive of inflammatory process with the liquid diarrhea. We'll be starting Flagyl empirically after stool sampling has been completed Hemoglobin and hematocrit drop +8.3 hemoglobin the iron study ordered and iron supplemental was ordered as well to be given after the blood testing obtained. Line patient is conscious alert aware of her presence of her and her son, could not control her anal sphincter or then liquidy diarrhea. Head and neck normal, chest is clear no wheezes no rhonchi no rales Heart regular sinus rhythm Abdomen: More comfortable of her abdomen she had large fixed hiatal hernia by the computed tomography scan of the abdomen and diverticulosis Extremities: Ecchymosis of the lower extremities no pitting edema, she had peripheral vascular disease with aortobifemoral bypass with the underlying atherosclerotic heart disease. Neurologically: Stable no history of stroke or tremors Physical therapy was ordered. Assessment: #1 enteritis, diarrhea liquid stool and positive lactoferrin #2 ANal incontinent. The unknown and surgical consult did not address the problem. #3 diabetes mellitus insulin-dependent controlled #4 chronic kidney disease stage III with improvement of creatinine with hydration. #5 hypertension is controlled #6 thrombocytopenia chronic #7 peripheral vascular disease with a history of aortobifem bypass #8 leukocytosis resolved #9 patient was on Enbrel with the underlying immunocompromise Deidra. #10 anemia with a drop in hemoglobin to 8.3 started with 11.9 also could be associated with hydration, the stool for Hemoccult has been ordered as well as delayed result until this time of dictation Plan: #1 requested consultation with gastroenterology Vandana Osuna, not available this week. #2 discussed with the extensive time with the family and the patient #3 secondary social studies teacher for discharge planning to a [facility] of the family choice and these ordered done today with the plan for Tuesday discharged to a us[facility]. I did also discuss that with the RN of the patient to notify the secondary social studies teacher or the nurse associate product manager. #4 we'll start Flagyl after completion of the stool testing with the hope it slow or treat the diarrhea especially after positive lactoferrin attending and waiting for the result from the lab. #5 also will start iron supplementation temporary Objective - Vital Signs Vital signs: Vital Signs Temp 99.3 F 10/13/22 06:19 Pulse 73 10/13/22 06:19 Resp 20 10/13/22 06:19 BP 131/66 10/13/22 06:19 Pulse Ox 95 10/13/22 06:19 FiO2 Intake & Output 10/12/22 10/13/22 10/13/22 18:59 06:59 18:59 Intake Total 1198 540 Balance 1198 540 Intake: Oral 1198 540 Other: Voiding Method Bedside Commode Bedside Commode Bedside Commode # Voids 1 2 # Bowel Movements 1 0 1 - Labs CBC & Chem 7: 10/13/22 10:49 10/13/22 10:49 Labs: Abnormal Lab Results - Last 24 Hours (Table) 10/12/22 10/12/22 10/12/22 Range/Units 04:43 07:36 17:19 RBC (3.80-5.40) m/uL Hgb (11.4-16.0) gm/dL Hct (34.0-46.0) % RDW (11.5-15.5) % Plt Count (150-450) k/uL Sodium (137-145) mmol/L Carbon Dioxide (22-30) mmol/L BUN (7-17) mg/dL Creatinine (0.52-1.04) mg/dL POC Glucose (mg/dL) 177 H (70-110) mg/dL Calcium (8.4-10.2) mg/dL Iron 18 L (50-170) ug/dL % Saturation 7.10 L (12.00-45.00) Transferrin 185.0 L (204.0-354.0) mg/dL Stool Lactoferrin POSITIVE A (NEGATIVE) 10/12/22 10/13/22 10/13/22 Range/Units 20:32 06:25 10:49 RBC 2.73 L (3.80-5.40) m/uL Hgb 8.6 L D (11.4-16.0) gm/dL Hct 25.5 L (34.0-46.0) % RDW 16.4 H (11.5-15.5) % Plt Count 101 L (150-450) k/uL Sodium (137-145) mmol/L Carbon Dioxide (22-30) mmol/L BUN (7-17) mg/dL Creatinine (0.52-1.04) mg/dL POC Glucose (mg/dL) 126 H 112 H (70-110) mg/dL Calcium (8.4-10.2) mg/dL Iron (50-170) ug/dL % Saturation (12.00-45.00) Transferrin (204.0-354.0) mg/dL Stool Lactoferrin (NEGATIVE) 10/13/22 10/13/22 Range/Units 10:49 13:01 RBC (3.80-5.40) m/uL Hgb (11.4-16.0) gm/dL Hct (34.0-46.0) % RDW (11.5-15.5) % Plt Count (150-450) k/uL Sodium 130 L (137-145) mmol/L Carbon Dioxide 21 L (22-30) mmol/L BUN 28 H (7-17) mg/dL Creatinine 1.18 H (0.52-1.04) mg/dL POC Glucose (mg/dL) 121 H (70-110) mg/dL Calcium 7.5 L (8.4-10.2) mg/dL Iron (50-170) ug/dL % Saturation (12.00-45.00) Transferrin (204.0-354.0) mg/dL Stool Lactoferrin (NEGATIVE) Microbiology - Last 24 Hours (Table) 10/12/22 07:36 Stool Culture - Preliminary Stool
--- NOTE | 2022-10-13 16:16 | P.PN ---
Subjective Progress Note Date: 10/13/22 CHIEF COMPLAINT: Diarrhea HISTORY OF PRESENT ILLNESS: Patient to the hospital for gastroenteritis. Denies any further nausea or vomiting. Patient continues to have diarrhea. She does admit to having some lower abdominal pain. No blood reported in stools. Nursing staff has been unable to collect stool for C. diff. Per patient's colonoscopy was 3 years ago no significant findings reported. Patient has been tolerating regular diet. Afebrile. WBC 6.1 hgb 8.6 platelets 101 sodium 130 potassium 4.1 creatinine 1.18 Patient seen and examined with Dr. capps PHYSICAL EXAM: VITAL SIGNS: Reviewed. GENERAL: Well-developed in no acute distress. ABDOMEN: Soft. Nondistended. NEUROLOGIC: Confused ASSESSMENT: 1. Gastroenteritis 2. Diarrhea 3. History of pulmonary hypertension PLAN: -Continue supportive care -No surgical intervention planned -Follow up on stool studies -Continue regular diet -Continue IV fluids Physician Director International note has been reviewed by physician. Signing provider agrees with the documented findings, assessment, and plan of care. Objective - Vital Signs Vital signs: Vital Signs Temp 97.6 F 10/13/22 15:00 Pulse 63 10/13/22 15:00 Resp 16 10/13/22 15:00 BP 130/67 10/13/22 15:00 Pulse Ox 99 10/13/22 15:00 FiO2 Intake & Output 10/12/22 10/13/22 10/13/22 18:59 06:59 18:59 Intake Total 1198 658 Balance 1198 658 Intake: Oral 1198 658 Other: Voiding Method Bedside Commode Bedside Commode Bedside Commode # Voids 1 2 1 # Bowel Movements 1 0 1 - Labs CBC & Chem 7: 10/13/22 10:49 10/13/22 10:49 Labs: Abnormal Lab Results - Last 24 Hours (Table) 10/12/22 10/12/22 10/12/22 Range/Units 04:43 17:19 20:32 RBC (3.80-5.40) m/uL Hgb (11.4-16.0) gm/dL Hct (34.0-46.0) % RDW (11.5-15.5) % Plt Count (150-450) k/uL Sodium (137-145) mmol/L Carbon Dioxide (22-30) mmol/L BUN (7-17) mg/dL Creatinine (0.52-1.04) mg/dL POC Glucose (mg/dL) 177 H 126 H (70-110) mg/dL Calcium (8.4-10.2) mg/dL Iron 18 L (50-170) ug/dL % Saturation 7.10 L (12.00-45.00) Transferrin 185.0 L (204.0-354.0) mg/dL 10/13/22 10/13/22 10/13/22 Range/Units 06:25 10:49 10:49 RBC 2.73 L (3.80-5.40) m/uL Hgb 8.6 L D (11.4-16.0) gm/dL Hct 25.5 L (34.0-46.0) % RDW 16.4 H (11.5-15.5) % Plt Count 101 L (150-450) k/uL Sodium 130 L (137-145) mmol/L Carbon Dioxide 21 L (22-30) mmol/L BUN 28 H (7-17) mg/dL Creatinine 1.18 H (0.52-1.04) mg/dL POC Glucose (mg/dL) 112 H (70-110) mg/dL Calcium 7.5 L (8.4-10.2) mg/dL Iron (50-170) ug/dL % Saturation (12.00-45.00) Transferrin (204.0-354.0) mg/dL 10/13/22 Range/Units 13:01 RBC (3.80-5.40) m/uL Hgb (11.4-16.0) gm/dL Hct (34.0-46.0) % RDW (11.5-15.5) % Plt Count (150-450) k/uL Sodium (137-145) mmol/L Carbon Dioxide (22-30) mmol/L BUN (7-17) mg/dL Creatinine (0.52-1.04) mg/dL POC Glucose (mg/dL) 121 H (70-110) mg/dL Calcium (8.4-10.2) mg/dL Iron (50-170) ug/dL % Saturation (12.00-45.00) Transferrin (204.0-354.0) mg/dL Microbiology - Last 24 Hours (Table) 10/12/22 07:36 Stool Culture - Preliminary Stool
[2022-10-13 16:24] LABS: % Iron Saturation 5.19 (12.00-45.00)
[2022-10-13] MEDS: metroNIDAZOLE 500 MG TAB PO SCH ×2 (16:56→20:57)
[2022-10-13] MEDS: ONDANSETRON 4 MG/2 ML VIAL IVP PRN (17:20)
[2022-10-13 17:21] LABS: Glucose,Whole Blood 196 mg/dL (70-110)
[2022-10-13] MEDS: FERROUS SULFATE 325 MG TAB PO SCH (17:43)
--- NOTE | 2022-10-13 19:18 | XR ---
EXAMINATION TYPE: XR abdomen 2V DATE OF EXAM: 10/13/2022 COMPARISON: NONE HISTORY: Pain TECHNIQUE: One view abdominal series FINDINGS: The osseous structures are intact. The bowel gas pattern is nonspecific. Left lower lobe subsegmenta l consolidation. Surgical clips are seen in the right upper quadrant as well as overlying the right b reast. Visualized vasculature demonstrates atherosclerotic changes. There are dilated bowel loops in the abdomen with retained contrast noted on the left. This likely from recent CT scan. IMPRESSION: 1. A numerous dilated bowel loops suspicious for obstruction. 2. Probable hiatal hernia as reported by recent CT scan
[2022-10-13 20:09] LABS: Amylase 42 U/L (30-110); Lipase 57 U/L (23-300)
[2022-10-13] MEDS ORDERED: PROCHLORPERAZINE INJ 10 MG/2 ML VIAL IVP PRN (20:31)
[2022-10-13] MEDS: ATORVASTATIN 10 MG TAB PO SCH (20:57)
[2022-10-13] MEDS: PANTOPRAZOLE 40 MG/10 ML VIAL IVP SCH (21:00)
[2022-10-13 21:20] LABS: Glucose,Whole Blood 146 mg/dL (70-110)
[2022-10-13 21:27] LABS: Basophils % (A) 0 %; Eosinophils # (A) 0.1 k/uL (0-0.7); Eosinophils % (A) 2 %; HCT 28.9 % (34.0-46.0); HGB 9.7 gm/dL (11.4-16.0); Lymphocytes # (A) 0.8 k/uL (1.0-4.8); Lymphocytes % (A) 11 %; MCH 31.8 pg (25.0-35.0); MCHC 33.5 g/dL (31.0-37.0); MCV 94.9 fL (80.0-100.0); Mean Platelet Volume 8.5; Monocytes # (A) 0.4 k/uL (0-1.0); Monocytes % (A) 5 %; Neutrophils # (A) 5.4 k/uL (1.3-7.7); Neutrophils % (A) 80 %; Platelet Count 120 k/uL (150-450); Poikilocytosis Slight; RBC 3.05 m/uL (3.80-5.40); WBC 6.8 k/uL (3.8-10.6)
[2022-10-14] MEDS: ONDANSETRON 4 MG/2 ML VIAL IVP PRN (01:20)
--- NOTE | 2022-10-14 03:17 | XR ---
EXAM: XR Chest, 1 View CLINICAL HISTORY: ITS.REASON XR Reason: NG placement TECHNIQUE: Frontal view of the chest. COMPARISON: No relevant prior studies available. IMPRESSION: NG tube terminates in the distal esophagus. Recommend advancing 15-20 cm.
[2022-10-14] MEDS: FERROUS SULFATE 325 MG TAB PO SCH ×2 (05:57→16:34)
[2022-10-14] MEDS: LEVOTHYROXINE 88 MCG TAB PO SCH (05:57)
[2022-10-14 06:21] LABS: Glucose,Whole Blood 106 mg/dL (70-110)
[2022-10-14] MEDS: INSULIN ASPART (NovoLOG) 100 UNIT/ML VIAL SQ SCH ×4 (06:39→20:34)
[2022-10-14] MEDS: CHOLECALCIFEROL 25 MCG (1000 IU) TABLET PO SCH (08:23)
[2022-10-14] MEDS: CYANOCOBALAMIN 500 MCG TAB PO SCH (08:23)
[2022-10-14] MEDS: METHYLPHENIDATE HCL 10 MG TAB PO SCH ×2 (08:23→12:18)
[2022-10-14] MEDS: CHOLESTYRAMINE (WITH SUGAR) 4 GM PACKET PO SCH ×3 (08:24→16:34)
[2022-10-14] MEDS: ASPIRIN 81 MG PO SCH (08:31)
[2022-10-14] MEDS: metroNIDAZOLE 500 MG TAB PO SCH ×3 (08:31→20:41)
[2022-10-14] MEDS: PANTOPRAZOLE 40 MG/10 ML VIAL IVP SCH (08:31)
[2022-10-14] MEDS: amLODIPine 5 MG TAB PO SCH (08:31)
[2022-10-14] MEDS: RANOLAZINE 500 MG TAB.ER.12H PO SCH ×2 (08:31→20:41)
[2022-10-14] MEDS: POTASSIUM CHLORIDE ER 10 MEQ TAB.ER.PRT PO SCH (08:31)
[2022-10-14] MEDS: METOPROLOL TARTRATE 12.5 MG TAB PO SCH ×2 (08:31→20:41)
[2022-10-14] MEDS: NON FORMULARY DRUG (Tadalafil [Tadalafil] 10 MG Tablet) PO SCH (08:32)
[2022-10-14] MEDS: OLANZapine 2.5 MG TAB PO SCH ×2 (08:32→20:41)
[2022-10-14 11:33] LABS: HGB 8.6 gm/dL (11.4-16.0); MCH 31.9 pg (25.0-35.0); MCHC 33.1 g/dL (31.0-37.0); MCV 96.6 fL (80.0-100.0); Mean Platelet Volume 8.9; Platelet Count 108 k/uL (150-450); Poikilocytosis Slight; RBC 2.69 m/uL (3.80-5.40); RDW 15.7 % (11.5-15.5); WBC 5.3 k/uL (3.8-10.6)
[2022-10-14 11:38] LABS: Glucose,Whole Blood 78 mg/dL (70-110)
[2022-10-14 11:56] LABS: Ionized Calcium 5.1 mg/dL (4.5-5.3)
[2022-10-14 12:37] LABS: African American GFR (CKD) 48 (>60 ml/min/1.73 sqM); Anion Gap 5 mmol/L; Blood Urea Nitrogen 25 mg/dL (7-17); Calcium 7.8 mg/dL (8.4-10.2); Carbon Dioxide 21 mmol/L (22-30); Chloride 106 mmol/L (98-107); Glucose 70 mg/dL (74-99); Non-African American GFR(CKD) 42 (>60 ml/min/1.73 sqM); Potassium 4.1 mmol/L (3.5-5.1); Sodium 132 mmol/L (137-145)
--- NOTE | 2022-10-14 13:01 | P.PN ---
Subjective Progress Note Date: 10/14/22 (Nausea vomiting and small bowel obstruction by x- ray and symptoms) Progress note Date of service 10/14/[address] rowley Patient seen and evaluated. [id number] At 5 PM on 10/13/2022 patient had recurrent episode of nausea and vomiting coffee-ground, patient received Zofran it did not help and she continue to have vomitus brown send was positive. At that time she had abdominal pain as well and initially the started to give her some Tylenol to help with the pain but she vomited that as well. In these event I was called and I order abdominal x-ray series for acute abdomen and found that she had small bowel obstruction A did advise the nurse on 6 E. to notify the surgeon internal consultant meanwhile she needs to be nothing by mouth except for ice chips subsequently on-call was Dr. Perez and he placed an NG tube by order and also x-ray followed that. And the patient transferred to acute care third floor telemetry with the underlying history of coronary artery(disease and arteriosclerosis and history of aortofemoral bypass with the underlying peripheral vascular disease. The vomitus was positive for Hemoccult with the history patient had previous upper endoscopy in the past by Dr. Starr Ross twisting frame fixer with the underlying Zarate's esophagus. Small bowel obstruction with fluid level in with the possibility of adhesions is considered as patient has multiple surgical intervention and laparotomy with the aortofemoral bypass. Patient transferred to room [facility] with panel monitor and the expectation patient will be in acute care until resolution of the small bowel obstruction and we will be keeping the surgical consult because of the intention if the bowel obstruction that resolved with symptomatically may need surgical intervention. Meanwhile she had some anal incontinent and the etiology is unclear. Patient also presented initially with the severe diarrhea. Patient has multiple diagnoses was a previous history of hypertension currently controlled History of rheumatoid arthritis was on Enbrel by her senior bioinformatics specialist also she had osteoarthritis as well. Patient has history of recent discharge from psychiatric hospital in [id number]. After she had acute psychosis and manic at that with the underlying bipolar disorder and they placed her on Zyprexa 2.5 mg twice a day. She started her diarrhea at the psychiatric hospital but they send her home. Subsequently patient presented to the ER and [facility] on 6 floor room 632 on the [place]. Where we requested surgical consult and gastroenterology consult. On examination today Temperature 98.2 left oral, heart rate ranging between 58 and 61 bpm. Blood pressure ranging between 135 and 114 systolic over 8972. Her pulse ox 97% room air. HEENT negative the NG tube placed through her nose oropharynx he had dentures upper and lower. Neck was supple no JVD no thyromegaly no lymphadenopathy trachea midline Chest is clear with the underlying kyphoscoliosis as symmetric. Heart is regular sinus rhythm. Abdomen vague abdominal pain with a small bowel obstruction her bowel sound high-pitched Extremities positive pulses no edema. Neurologically stable Psychiatry stable. Assessment: #1 acute small bowel obstruction probable association with adhesions was multiple abdominal surgery for her peripheral vascular disease. #2 acute diarrhea stool culture was negative however lactic ferritin was positive for inflammation. #3 hypertension with hypertensive heart disease currently controlled blood pressure #4 hyperlipidemia #5 underlying history of bipolar and psychosis no agitation at this time. #6 peripheral vascular disease with a history of aortofemoral bypass. #7 history of chronic kidney disease stage III. #8 history of pulmonary hypertension was treated with Harinder FEL by Dr. 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 Clements twisting frame fixer currently positive occult blood in the vomitus. #10 anemia with the dropping hemoglobin. #11 diabetes mellitus2 monitored with CBG to scale patient currently nothing by mouth Plan: #1 patient nothing by mouth except ice chips #2 monitored with surgical consult Continue monitoring patient and nothing by mouth and waiting for resolution of the small bowel obstruction. #3 will follow obstruction with surgical and GI with the underlying small bowel obstruction BMP CBC exam Objective - Vital Signs Vital signs: Vital Signs Temp 98.2 F 10/14/22 04:10 Pulse 59 L 10/14/22 12:00 Resp 16 10/14/22 12:00 BP 114/52 10/14/22 12:00 Pulse Ox 97 10/14/22 12:00 FiO2 Intake & Output 10/13/22 10/14/22 10/14/22 18:59 06:59 18:59 Intake Total 658 Output Total 1000 Balance 658 -1000 Intake: Oral 658 Output: Gastric Drainage 1000 Other: Voiding Method Bedside Commode Diaper Diaper # Voids 1 1 # Bowel Movements 1 0 - Labs CBC & Chem 7: 10/14/22 10:56 10/14/22 10:56 Labs: Abnormal Lab Results - Last 24 Hours (Table) 10/13/22 10/13/22 10/13/22 Range/Units 10:49 13:01 15:19 RBC (3.80-5.40) m/uL Hgb (11.4-16.0) gm/dL Hct (34.0-46.0) % RDW (11.5-15.5) % Plt Count (150-450) k/uL Lymphocytes # (1.0-4.8) k/uL Sodium (137-145) mmol/L Carbon Dioxide (22-30) mmol/L BUN (7-17) mg/dL Creatinine (0.52-1.04) mg/dL Glucose (74-99) mg/dL POC Glucose (mg/dL) 121 H (70-110) mg/dL Calcium (8.4-10.2) mg/dL Iron 11 L (50-170) ug/dL TIBC 204 L (228-460) ug/dL % Saturation 5.19 L (12.00-45.00) Transferrin 146.0 L (204.0-354.0) mg/dL Vitamin D 25-Hydroxy 29.8 L (30.0-100.0) ng/mL 10/13/22 10/13/22 10/13/22 Range/Units 17:19 21:05 21:18 RBC 3.05 L (3.80-5.40) m/uL Hgb 9.7 L (11.4-16.0) gm/dL Hct 28.9 L (34.0-46.0) % RDW 16.0 H (11.5-15.5) % Plt Count 120 L (150-450) k/uL Lymphocytes # 0.8 L (1.0-4.8) k/uL Sodium (137-145) mmol/L Carbon Dioxide (22-30) mmol/L BUN (7-17) mg/dL Creatinine (0.52-1.04) mg/dL Glucose (74-99) mg/dL POC Glucose (mg/dL) 196 H 146 H (70-110) mg/dL Calcium (8.4-10.2) mg/dL Iron (50-170) ug/dL TIBC (228-460) ug/dL % Saturation (12.00-45.00) Transferrin (204.0-354.0) mg/dL Vitamin D 25-Hydroxy (30.0-100.0) ng/mL 10/14/22 10/14/22 Range/Units 10:56 10:56 RBC 2.69 L (3.80-5.40) m/uL Hgb 8.6 L (11.4-16.0) gm/dL Hct 26.0 L (34.0-46.0) % RDW 15.7 H (11.5-15.5) % Plt Count 108 L (150-450) k/uL Lymphocytes # (1.0-4.8) k/uL Sodium 132 L (137-145) mmol/L Carbon Dioxide 21 L (22-30) mmol/L BUN 25 H (7-17) mg/dL Creatinine 1.18 H (0.52-1.04) mg/dL Glucose 70 L (74-99) mg/dL POC Glucose (mg/dL) (70-110) mg/dL Calcium 7.8 L (8.4-10.2) mg/dL Iron (50-170) ug/dL TIBC (228-460) ug/dL % Saturation (12.00-45.00) Transferrin (204.0-354.0) mg/dL Vitamin D 25-Hydroxy (30.0-100.0) ng/mL Microbiology - Last 24 Hours (Table) 10/12/22 07:36 Stool Culture - Preliminary Stool
--- NOTE | 2022-10-14 15:09 | P.PN ---
Subjective Progress Note Date: 10/14/22 CHIEF COMPLAINT: Diarrhea HISTORY OF PRESENT ILLNESS: Patient initially hospitalized with diarrhea and ga stroenteritis. During the night patient was vomiting dark green emesis. Abdominal x-ray completed had shown numerous dilated bowel loops suspicious for obstruction per radiologist. X-ray results reviewed with Dr. White. There was air noted in the rectum on x-ray therefore this is likely an ileus and not a bowel obstruction. Patient did have NG tube placed with 1000 mL output. The emesis was gastric occult positive. Hemoglobin did go down from 9.7-8.6. Patient has had no further bowel movements or flatus. Her last bowel movement yesterday morning and consisted of diarrhea. She reports since placement of the NG tube feeling better. Her pain is controlled. She is distended. Afebrile. WBC is 5.3 Hgb 8.6 platelets 108 sodium is 132 potassium 4.1 creatinine 1.18 PHYSICAL EXAM: VITAL SIGNS: Reviewed. GENERAL: Well-developed in no acute distress. ABDOMEN: Soft. Distended. Mild diffuse tenderness NEUROLOGIC: Confused ASSESSMENT: 1. Ileus with x-ray showing numerous dilated bowel loops and evidence of air in the rectum 2. Gastroenteritis 3. Possible gastritis contributing to gastric occult positive 4. Acute kidney injury 5. Hyponatremia 6. History of pulmonary hypertension PLAN: -Continue NG tube for decompression -Keep patient nothing by mouth -Repeat abdominal x-ray in a.m. -Continue IV Protonix -Continue supportive care -Continue IV fluids Physician Keno Writer/Runner note has been reviewed by physician. Signing provider agrees with the documented findings, assessment, and plan of care. CHIEF COMPLAINT: Gastroenteritis HISTORY OF PRESENT ILLNESS: The patient is a 87-year-old female who presents with diarrhea and gastroenteritis. She had emesis with placement of NG tube. She developed worsening condition overnight. ROS: No reports of nausea and vomiting. No fevers or chills. No new chest pain. PHYSICAL EXAM: VITAL SIGNS: Reviewed CONSTITUTIONAL: Well developed and in no acute distress. EYES: Conjuctivae without sclera icterus. Extraocular movements grossly intact. HEAD, EARS, NOSE, THROAT: Moist buccal mucosa. Head is atraumatic, normocephalic. Hears conversational speech. No nasal drainage. RESPIRATORY: Non-labored respirations and equal bilateral excursions. CARDIOVASCULAR: Palpable 2+ radial pulses. ABDOMEN: No peritonitis. MUSCULOSKELETAL: No gross deformity of the lower extremities noted. No clubbing. No cyanosis. SKIN: Good skin turgor. Well perfused. NEUROLOGIC: Cranial nerves II through XII grossly intact. No focal or lateralizing signs. PSYCH: Flat affect CLINICAL LABS: Reviewed. WBC normal. Anemia, hemoglobin of less than 1.0. Sodium is 132 STUDIES: Abdominal x-ray independent review demonstrates diffuse bowel gas pattern including the rectum. No overt evidence of free air. Findings c onsistent with ileus. This is my independent interpretation. CT of the abdomen and pelvis independently reviewed demonstrates large intrathoracic paraesophageal hiatal hernia. Diverticulosis identified with mild colitis. This is my independent interpretation. ASSESSMENT: 1. Ileus. 2. Gastroenteritis 3. Paraesophageal hiatal hernia 4. Hyponatremia PLAN: 1. Continue nasogastric tube and bowel rest 2. Correction of hypokalemia which may contribute to ileus Objective - Vital Signs Vital signs: Vital Signs Temp 98.2 F 10/14/22 04:10 Pulse 59 L 10/14/22 12:00 Resp 16 10/14/22 14:00 BP 114/52 10/14/22 12:00 Pulse Ox 97 10/14/22 12:00 FiO2 Intake & Output 10/13/22 10/14/22 10/14/22 18:59 06:59 18:59 Intake Total 658 Output Total 1000 Balance 658 -1000 Intake: Oral 658 Output: Gastric Drainage 1000 Other: Voiding Method Bedside Commode Diaper Diaper # Voids 1 1 # Bowel Movements 1 0 - Labs CBC & Chem 7: 10/14/22 10:56 10/14/22 10:56 Labs: Abnormal Lab Results - Last 24 Hours (Table) 10/12/22 10/13/22 10/13/22 Range/Units 07:36 10:49 15:19 RBC (3.80-5.40) m/uL Hgb (11.4-16.0) gm/dL Hct (34.0-46.0) % RDW (11.5-15.5) % Plt Count (150-450) k/uL Lymphocytes # (1.0-4.8) k/uL Sodium (137-145) mmol/L Carbon Dioxide (22-30) mmol/L BUN (7-17) mg/dL Creatinine (0.52-1.04) mg/dL Glucose (74-99) mg/dL POC Glucose (mg/dL) (70-110) mg/dL Calcium (8.4-10.2) mg/dL Iron 11 L (50-170) ug/dL TIBC 204 L (228-460) ug/dL % Saturation 5.19 L (12.00-45.00) Transferrin 146.0 L (204.0-354.0) mg/dL Vitamin D 25-Hydroxy 29.8 L (30.0-100.0) ng/mL Stool Calprotectin 991.6 H (<50) mcg/g 10/13/22 10/13/22 10/13/22 Range/Units 17:19 21:05 21:18 RBC 3.05 L (3.80-5.40) m/uL Hgb 9.7 L (11.4-16.0) gm/dL Hct 28.9 L (34.0-46.0) % RDW 16.0 H (11.5-15.5) % Plt Count 120 L (150-450) k/uL Lymphocytes # 0.8 L (1.0-4.8) k/uL Sodium (137-145) mmol/L Carbon Dioxide (22-30) mmol/L BUN (7-17) mg/dL Creatinine (0.52-1.04) mg/dL Glucose (74-99) mg/dL POC Glucose (mg/dL) 196 H 146 H (70-110) mg/dL Calcium (8.4-10.2) mg/dL Iron (50-170) ug/dL TIBC (228-460) ug/dL % Saturation (12.00-45.00) Transferrin (204.0-354.0) mg/dL Vitamin D 25-Hydroxy (30.0-100.0) ng/mL Stool Calprotectin (<50) mcg/g 10/14/22 10/14/22 Range/Units 10:56 10:56 RBC 2.69 L (3.80-5.40) m/uL Hgb 8.6 L (11.4-16.0) gm/dL Hct 26.0 L (34.0-46.0) % RDW 15.7 H (11.5-15.5) % Plt Count 108 L (150-450) k/uL Lymphocytes # (1.0-4.8) k/uL Sodium 132 L (137-145) mmol/L Carbon Dioxide 21 L (22-30) mmol/L BUN 25 H (7-17) mg/dL Creatinine 1.18 H (0.52-1.04) mg/dL Glucose 70 L (74-99) mg/dL POC Glucose (mg/dL) (70-110) mg/dL Calcium 7.8 L (8.4-10.2) mg/dL Iron (50-170) ug/dL TIBC (228-460) ug/dL % Saturation (12.00-45.00) Transferrin (204.0-354.0) mg/dL Vitamin D 25-Hydroxy (30.0-100.0) ng/mL Stool Calprotectin (<50) mcg/g Microbiology - Last 24 Hours (Table) 10/12/22 07:36 Stool Culture - Preliminary Stool
[2022-10-14 16:22] LABS: Glucose,Whole Blood 70 mg/dL (70-110)
[2022-10-14] MEDS: SODIUM CHLORIDE 0.9% 1,000 ML IV SCH (16:30)
[2022-10-14] MEDS: DEXTROSE 5%-0.9% NACL 1,000 ML IV SCH (16:30)
[2022-10-14 20:10] LABS: Glucose,Whole Blood 90 mg/dL (70-110)
[2022-10-14] MEDS: ATORVASTATIN 10 MG TAB PO SCH (20:41)
[2022-10-15 06:14] LABS: Glucose,Whole Blood 92 mg/dL (70-110)
[2022-10-15] MEDS: LEVOTHYROXINE 88 MCG TAB PO SCH (06:25)
[2022-10-15] MEDS: FERROUS SULFATE 325 MG TAB PO SCH ×2 (06:25→17:41)
[2022-10-15] MEDS: INSULIN ASPART (NovoLOG) 100 UNIT/ML VIAL SQ SCH ×4 (06:26→20:08)
[2022-10-15] MEDS: DEXTROSE 5%-0.9% NACL 1,000 ML IV SCH ×3 (06:26→20:17)
--- NOTE | 2022-10-15 07:32 | XR ---
EXAMINATION TYPE: XR abdomen 2V DATE OF EXAM: 10/15/2022 6:25 AM INDICATION: Patient age:Female; 87 years old; Reason for study: ileus; COMPARISON: CT 05/16/2023, 10/11/2022 TECHNIQUE: Two views of the abdomen were obtained. FINDINGS: Density stool seen throughout the colon. Multiple outpouchings are seen involving the colon consistent compatible with diverticulosis. Surgical clips are present over the right femoral head. B owel gas pattern is nonspecific. Nasogastric tube terminates in the hiatal hernia in the mediastinum. Remote left lower rib injury. Atherosclerosis of the arterial vasculature. IMPRESSION: 1. High density stool throughout the colon with multiple colonic diverticula. 2. Nasogastric tube terminating in a hiatal hernia.
[2022-10-15 08:59] LABS: Basophils % (A) 0 %; Eosinophils # (A) 0.1 k/uL (0-0.7); Eosinophils % (A) 3 %; HCT 27.5 % (34.0-46.0); Lymphocytes # (A) 0.7 k/uL (1.0-4.8); Lymphocytes % (A) 16 %; MCH 31.6 pg (25.0-35.0); MCHC 32.8 g/dL (31.0-37.0); MCV 96.2 fL (80.0-100.0); Mean Platelet Volume 8.5; Monocytes # (A) 0.3 k/uL (0-1.0); Monocytes % (A) 6 %; Neutrophils # (A) 3.2 k/uL (1.3-7.7); Neutrophils % (A) 74 %; Platelet Count 116 k/uL (150-450); Poikilocytosis Slight; RBC 2.86 m/uL (3.80-5.40); RDW 15.7 % (11.5-15.5); WBC 4.4 k/uL (3.8-10.6)
[2022-10-15] MEDS: NON FORMULARY DRUG (Tadalafil [Tadalafil] 10 MG Tablet) PO SCH (09:00)
[2022-10-15 09:11] LABS: Potassium 3.8 mmol/L (3.5-5.1)
[2022-10-15 09:12] LABS: Calcium 7.8 mg/dL (8.4-10.2)
[2022-10-15] MEDS: metroNIDAZOLE 500 MG TAB PO SCH ×3 (09:34→20:16)
[2022-10-15] MEDS: METOPROLOL TARTRATE 12.5 MG TAB PO SCH ×2 (09:34→20:15)
[2022-10-15] MEDS: amLODIPine 5 MG TAB PO SCH (09:35)
[2022-10-15] MEDS: POTASSIUM CHLORIDE ER 10 MEQ TAB.ER.PRT PO SCH (09:35)
[2022-10-15] MEDS: ASPIRIN 81 MG PO SCH (09:35)
[2022-10-15] MEDS: OLANZapine 2.5 MG TAB PO SCH ×2 (09:35→20:16)
[2022-10-15] MEDS: CYANOCOBALAMIN 500 MCG TAB PO SCH (09:35)
[2022-10-15] MEDS: RANOLAZINE 500 MG TAB.ER.12H PO SCH ×2 (09:35→20:15)
[2022-10-15] MEDS: CHOLECALCIFEROL 25 MCG (1000 IU) TABLET PO SCH (09:35)
[2022-10-15] MEDS: PANTOPRAZOLE 40 MG/10 ML VIAL IVP SCH (09:36)
[2022-10-15] MEDS: METHYLPHENIDATE HCL 10 MG TAB PO SCH ×2 (10:11→14:17)
[2022-10-15 11:36] LABS: Glucose,Whole Blood 107 mg/dL (70-110)
--- NOTE | 2022-10-15 13:42 | P.PN ---
Subjective Progress Note Date: 10/15/22 Progress note Date of service 10/15/[address] Mensah. Patient seen in [id number] discussed with the patient reviewed the x-ray with the stool presentation filling the sigmoid descending colon up to the transverse patient received 1 and edema soapsuds no improvement will wait for for further i nstruction from the surgery. Laboratory white count currently 4.4, hemoglobin 9 and hematocrit 27.7., Her platelet count is 116 today has been fluctuating with the skin ecchymosis watches with the underlying thrombocytopenia however is mild Her chemistry indicating the sodium 136 potassium 3.8 chloride 112 carbon dioxide 21 and her BUN 15 and creatinine 1.03 with the EGFR for non- 1.03 and her blood sugar was 97 yesterday she was hypoglycemic as the IV did not have dextrose and we discontinue the normal saline and started her on the underlying D5.9 currently in the rate of 80 mL an hour as she is nothing by mouth. Her blood pressure has been tendency to be elevated and today was recorded as 173/64 and 182/65 and 150/65 and we'll restart lisinopril 5 mg and she is currently on the IV fluid On exam patient's conscious alert she able to ask percussion and aware of her current problem and she stated that she had the enema and did not do any help for for the retention of the stool. The possibility of superior his diarrhea was considered as she presented with diarrhea to the hospital initially and the CAT scan of the abdomen that did not indicate the stool retention was done on the date of admission. On the exam patient is conscious alert and she has NG tube in place HEENT was negative neck was supple and the chest was clear with the underlying NG tube in place however they stated NG tube in the fixed hiatal hernia and the discussed with the [place] the nurse to be informative the surgical group for advancing it or leaving the same place. Her heart was regular sinus rhythm but the blood pressure was mildly elevated The abdomen she had positive bowel sound currently and it seems to me that the stool retention is the major problem and will see if any other with ALLERGY to clear her and wants is a surgeon. On that packed Extremities no edema. And the her iron results is not available. Assessment and plan We'll monitor the patient We'll continue recommendation from the surgical group with the stool retention so far no diarrhea has been recorded. Hypertension uncontrolled started the lisinopril 5 mg and for further adjustment depending on the patient condition. Patient continued to have the NG tube and we will be waiting for the surgical group to assess needed [place]. Objective - Vital Signs Vital signs: Vital Signs Temp 97.8 F 10/15/22 11:50 Pulse 66 10/15/22 12:11 Resp 18 10/15/22 12:11 BP 150/65 10/15/22 11:50 Pulse Ox 95 10/15/22 11:50 FiO2 Intake & Output 10/14/22 10/15/22 10/15/22 18:59 06:59 18:59 Intake Total 600 0 Output Total 325 600 Balance 275 0 -600 Intake: Intake, IV Titration 600 Amount Sodium Chloride 0.9% 1, 600 000 ml @ 75 mls/hr IV . [id number] [facility] Rx#:[id number] Oral 0 Output: Gastric Drainage 325 600 Other: Voiding Method Diaper Diaper Toilet # Voids 1 1 - Labs CBC & Chem 7: 10/15/22 08:24 10/15/22 08:24 Labs: Abnormal Lab Results - Last 24 Hours (Table) 10/12/22 10/15/22 10/15/22 Range/Units 07:36 08:24 08:24 RBC 2.86 L (3.80-5.40) m/uL Hgb 9.0 L (11.4-16.0) gm/dL Hct 27.5 L (34.0-46.0) % RDW 15.7 H (11.5-15.5) % Plt Count 116 L (150-450) k/uL Lymphocytes # 0.7 L (1.0-4.8) k/uL Sodium 136 L (137-145) mmol/L Chloride 112 H (98-107) mmol/L Carbon Dioxide 21 L (22-30) mmol/L Calcium 7.8 L (8.4-10.2) mg/dL Stool Calprotectin 991.6 H (<50) mcg/g Microbiology - Last 24 Hours (Table) 10/12/22 07:36 Stool Culture - Final Stool 10/13/22 15:19 Blood Culture - Preliminary Blood No Growth after 24 hours
--- NOTE | 2022-10-15 14:47 | P.PN ---
Subjective Progress Note Date: 10/15/22 CHIEF COMPLAINT: Diarrhea HISTORY OF PRESENT ILLNESS: Patient initially hospitalized with diarrhea and ga stroenteritis. Patient has developed an ileus. Abdominal x-ray had shown high density stool throughout the colon with multiple colonic diverticula NG tube terminating and hilar hernia. Patient reports no bowel movement. She remains confused. She denies any abdominal pain. She reports that she's hungry. No output through NG tube. Afebrile. WBC is 4.4 Hgb 9 platelets 116 sodium is 136 creatinine 1.03 PHYSICAL EXAM: VITAL SIGNS: Reviewed. GENERAL: Well-developed in no acute distress. ABDOMEN: Soft. Nondistended and nontender NEUROLOGIC: Confused ASSESSMENT: 1. Ileus with x-ray showing numerous dilated bowel loops and evidence of air in the rectum 2. Gastroenteritis 3. Possible gastritis contributing to gastric occult positive 4. Acute kidney injury 5. Hyponatremia 6. History of pulmonary hypertension PLAN: -Discontinue NG tube -Start full liquid diet -Discontinue Questran. This medication is contraindicated with ileus -Subset enema ordered to help stimulate bowel movement -Continue IV Protonix -Continue supportive care Physician Digital Asset Manager note has been reviewed by physician. Signing provider agrees with the documented findings, assessment, and plan of care. CHIEF COMPLAINT: Gastroenteritis HISTORY OF PRESENT ILLNESS: The patient is a 87-year-old female who presents with diarrhea and gastroenteritis. Her family is at bedside. Denies abdominal pain. Denies nausea. Denies bowel movements today. NG tube present. ROS: No reports of nausea and vomiting. No fevers or chills. No new chest pain. PHYSICAL EXAM: VITAL SIGNS: Reviewed CONSTITUTIONAL: Well developed and in no acute distress. EYES: Conjuctivae without sclera icterus. Extraocular movements grossly intact. HEAD, EARS, NOSE, THROAT: Moist buccal mucosa. Head is atraumatic, normocephalic. Hears conversational speech. No nasal drainage. RESPIRATORY: Non-labored respirations and equal bilateral excursions. CARDIOVASCULAR: Palpable 2+ radial pulses. ABDOMEN: No peritonitis. MUSCULOSKELETAL: No gross deformity of the lower extremities noted. No clubbing. No cyanosis. SKIN: Good skin turgor. Well perfused. NEUROLOGIC: Cranial nerves II through XII grossly intact. No focal or lateralizing signs. PSYCH: Flat affect CLINICAL LABS: Reviewed. WBC normal. Hemoglobin low 9.0, anemia STUDIES: Abdominal x-ray independent review demonstrates moderate stool. No obstruction. This is my independent interpretation. ASSESSMENT: 1. Ileus. 2. Gastroenteritis 3. Paraesophageal hiatal hernia 4. Hyponatremia 5. Constipation with fecal impaction PLAN: 1. Recommend enema for moderate stool 2. Discontinue NG tube 3. May start full liquid diet 4. Discontinue cholestyramine due to ileus. Objective - Vital Signs Vital signs: Vital Signs Temp 97.8 F 10/15/22 11:50 Pulse 66 10/15/22 12:11 Resp 18 10/15/22 12:11 BP 150/65 10/15/22 11:50 Pulse Ox 95 10/15/22 11:50 FiO2 Intake & Output 10/14/22 10/15/22 10/15/22 18:59 06:59 18:59 Intake Total 600 0 Output Total 325 600 Balance 275 0 -600 Intake: Intake, IV Titration 600 Amount Sodium Chloride 0.9% 1, 600 000 ml @ 75 mls/hr IV . [id number] [facility] Rx#:[id number] Oral 0 Output: Gastric Drainage 325 600 Other: Voiding Method Diaper Diaper Toilet # Voids 1 1 - Labs CBC & Chem 7: 10/15/22 08:24 10/15/22 08:24 Labs: Abnormal Lab Results - Last 24 Hours (Table) 10/12/22 10/14/22 10/15/22 Range/Units 07:36 10:56 08:24 RBC 2.86 L (3.80-5.40) m/uL Hgb 9.0 L (11.4-16.0) gm/dL Hct 27.5 L (34.0-46.0) % RDW 15.7 H (11.5-15.5) % Plt Count 116 L (150-450) k/uL Lymphocytes # 0.7 L (1.0-4.8) k/uL Sodium 132 L (137-145) mmol/L Chloride (98-107) mmol/L Carbon Dioxide 21 L (22-30) mmol/L BUN 25 H (7-17) mg/dL Creatinine 1.18 H (0.52-1.04) mg/dL Glucose 70 L (74-99) mg/dL Calcium 7.8 L (8.4-10.2) mg/dL Stool Calprotectin 991.6 H (<50) mcg/g 10/15/22 Range/Units 08:24 RBC (3.80-5.40) m/uL Hgb (11.4-16.0) gm/dL Hct (34.0-46.0) % RDW (11.5-15.5) % Plt Count (150-450) k/uL Lymphocytes # (1.0-4.8) k/uL Sodium 136 L (137-145) mmol/L Chloride 112 H (98-107) mmol/L Carbon Dioxide 21 L (22-30) mmol/L BUN (7-17) mg/dL Creatinine (0.52-1.04) mg/dL Glucose (74-99) mg/dL Calcium 7.8 L (8.4-10.2) mg/dL Stool Calprotectin (<50) mcg/g Microbiology - Last 24 Hours (Table) 10/12/22 07:36 Stool Culture - Final Stool 10/13/22 15:19 Blood Culture - Preliminary Blood No Growth after 24 hours
[2022-10-15] MEDS: lisinopriL 5 MG TAB PO SCH (15:21)
[2022-10-15 16:36] LABS: Glucose,Whole Blood 139 mg/dL (70-110)
[2022-10-15 20:05] LABS: Glucose,Whole Blood 124 mg/dL (70-110)
[2022-10-15] MEDS: ATORVASTATIN 10 MG TAB PO SCH (20:16)
[2022-10-15 20:18] LABS: % Iron Saturation 6.27 (12.00-45.00)
[2022-10-16 06:15] LABS: Glucose,Whole Blood 89 mg/dL (70-110)
[2022-10-16] MEDS: INSULIN ASPART (NovoLOG) 100 UNIT/ML VIAL SQ SCH ×4 (06:21→20:31)
[2022-10-16] MEDS: LEVOTHYROXINE 88 MCG TAB PO SCH (06:24)
[2022-10-16] MEDS: FERROUS SULFATE 325 MG TAB PO SCH ×2 (06:24→16:28)
[2022-10-16] MEDS: CYANOCOBALAMIN 500 MCG TAB PO SCH (09:23)
[2022-10-16] MEDS: metroNIDAZOLE 500 MG TAB PO SCH ×3 (09:24→20:34)
[2022-10-16] MEDS: POTASSIUM CHLORIDE ER 10 MEQ TAB.ER.PRT PO SCH (09:24)
[2022-10-16] MEDS: ASPIRIN 81 MG PO SCH (09:24)
[2022-10-16] MEDS: PANTOPRAZOLE 40 MG/10 ML VIAL IVP SCH (09:24)
[2022-10-16] MEDS: lisinopriL 5 MG TAB PO SCH (09:24)
[2022-10-16] MEDS: METOPROLOL TARTRATE 12.5 MG TAB PO SCH ×2 (09:24→20:34)
[2022-10-16] MEDS: CHOLECALCIFEROL 25 MCG (1000 IU) TABLET PO SCH (09:24)
[2022-10-16] MEDS: amLODIPine 5 MG TAB PO SCH (09:24)
[2022-10-16] MEDS: RANOLAZINE 500 MG TAB.ER.12H PO SCH ×2 (09:24→20:34)
[2022-10-16] MEDS: OLANZapine 2.5 MG TAB PO SCH ×2 (09:24→20:34)
[2022-10-16] MEDS: NON FORMULARY DRUG (Tadalafil [Tadalafil] 10 MG Tablet) PO SCH (09:25)
[2022-10-16 11:31] LABS: Glucose,Whole Blood 102 mg/dL (70-110)
--- NOTE | 2022-10-16 13:13 | P.PN ---
Subjective Progress Note Date: 10/16/22 CHIEF COMPLAINT: Gastroenteritis HISTORY OF PRESENT ILLNESS: The patient is a 87-year-old female who presents with diarrhea and gastroenteritis. Her family is at bedside. She is tolerating a full liquid diet. She slept well. She feels much better. No further diarrhea. ROS: No reports of nausea and vomiting. No fevers or chills. No new chest pain. PHYSICAL EXAM: VITAL SIGNS: Reviewed CONSTITUTIONAL: Well developed and in no acute distress. Pleasant. EYES: Conjuctivae without sclera icterus. Extraocular movements grossly intact. HEAD, EARS, NOSE, THROAT: Moist buccal mucosa. Head is atraumatic, normocephalic. Hears conversational speech. No nasal drainage. RESPIRATORY: Non-labored respirations and equal bilateral excursions. CARDIOVASCULAR: Palpable 2+ radial pulses. ABDOMEN: No peritonitis. MUSCULOSKELETAL: No gross deformity of the lower extremities noted. No clubbing. No cyanosis. SKIN: Good skin turgor. Well perfused. NEUROLOGIC: Cranial nerves II through XII grossly intact. No focal or lateralizing signs. PSYCH: Alert to self. CLINICAL LABS: Reviewed. Iron studies low. WBC normal. ASSESSMENT: 1. Ileus. 2. Gastroenteritis 3. Paraesophageal hiatal hernia 4. Hyponatremia 5. Moderately severe diverticulosis PLAN: 1. At this time, patient clinically doing well. We'll advance a low fiber diet. 2. Trial of lactulose for retained stool from abdominal x-ray Objective - Vital Signs Vital signs: Vital Signs Temp 99.1 F 10/16/22 11:33 Pulse 60 10/16/22 11:33 Resp 18 10/16/22 11:33 BP 145/71 10/16/22 11:33 Pulse Ox 95 10/16/22 11:33 FiO2 Intake & Output 10/15/22 10/16/22 10/16/22 18:59 06:59 18:59 Intake Total 890 970 150 Output Total 1150 Balance -260 970 150 Intake: Oral 890 970 150 Output: Gastric Drainage 1150 Other: Voiding Method Toilet Toilet Toilet # Voids 1 - Labs CBC & Chem 7: 10/15/22 08:24 10/15/22 08:24 Labs: Abnormal Lab Results - Last 24 Hours (Table) 10/15/22 10/15/22 10/15/22 Range/Units 08:24 16:34 20:04 POC Glucose (mg/dL) 139 H 124 H (70-110) mg/dL Iron 14 L (50-170) ug/dL TIBC 218 L (228-460) ug/dL % Saturation 6.27 L (12.00-45.00) Transferrin 156.0 L (204.0-354.0) mg/dL Microbiology - Last 24 Hours (Table) 10/13/22 15:19 Blood Culture - Preliminary Blood No Growth after 48 hours
--- NOTE | 2022-10-16 13:34 | P.PN ---
Subjective Progress Note Date: 10/16/22 Progress note Date of service 10/16/[address] Mensah Patient seen evaluated [id number] Reviewed Dr. Garza note Discussed with the and her son and the patient. Patient is conscious alert oriented 3 Vital sign temperature 99.1 F oral pulse is 60 beats per minute respiratory rate 18/m blood pressure 145/71 with a mean blood pressure 95 her oxygen saturation is 95%. Patient conscious alert and able to answer questions and seen by Dr. Garza and she started her on the regular diet today. She has underlying retention of the stool Patient has no specific complaint but no bowel movement yet. On exam: Head was normocephalic and atraumatic pupil was equal reactive conjunctiva was pale with the underlying anemia and iron study indicating that however we could not start iron without having a bowel movement to avoid more constipation. She had dentures upper and lower Neck was supple no JVD no thyromegaly no lymphadenopathy trachea midline. Chest was clear to auscultation and percussion Heart was regular sinus rhythm Abdomen positive bowel sounds and no tenderness. Extremities no edema and positive pulses. Neurologically stable. Discussion her was entertaining the point of medication Zyprexa and that can cause constipation. I did discuss it with him and her son as well and that medication was started by her psychiatrist after she had manic attack from bipol ar and at that time they discontinue the Ritalin and started her on Zyprexa 2.5 mg twice a day small dose and subsequently we continued the medication then we stopped as we get the records the Ritalin as advised to be discontinued by the psychiatrist. I did consult psychiatry to evaluate and see if that several valid question to address the Zyprexa and the complication and the concern was continuation and if there is any need to stop these medication. The psychiatrist because I am afraid that patient goes back to panic attack of the bipolar disorder and she suspended about 4 days in the [facility] and after she was discharged she admitted through the emergency room because of her acute diarrhea which now we know that could be spurious diarrhea was retention of the stool and ileus which x-ray indicated that she had a small bowel obstruction With the evaluation by Dr. Garza and will continue Dr. Garza order and opinion very well-respected as she has very wide experience of these matters. Her blood pressure currently fairly controlled and there is no nausea or vomiting and the NG tube has been removed. And the pulse ox is 95%. With the start of feeding regular diet will change his IV fluid again as she was hypoglycemic when she was nothing by mouth and for that reason we change IV to D5 0.9 normal saline which correct her blood sugars. Assessment: And plan Ileus of the bowel Diarrhea on admission was a consideration of soup aureus diarrhea. Underlying hypertension and hypertensive heart disease controlled and the EKG was normal sinus was no chest pain. Diabetes mellitus has been monitored with CBG to scale and continued and control . Plan Will adjust IV fluid changed to 0.9 normal saline and a keep vein open was gradual decrease IV fluid to 50 mL an hour. In regard of the Zyprexa and left it up to the psychiatric service for a djustment if needed. Iron study indicating that iron 14 which is low as well as a saturation 6.27 and transferrin also low 156 which is combination for iron deficiency anemia and chronic disease and we will be addressing the starting iron supplementation after patient had a bowel movement. We'll leave the today and started the changes tomorrow with the blood sugar today 97 in a.m. with the D5 0.9 Objective - Vital Signs Vital signs: Vital Signs Temp 99.1 F 10/16/22 11:33 Pulse 60 10/16/22 11:33 Resp 18 10/16/22 11:33 BP 145/71 10/16/22 11:33 Pulse Ox 95 10/16/22 11:33 FiO2 Intake & Output 10/15/22 10/16/22 10/16/22 18:59 06:59 18:59 Intake Total 890 970 150 Output Total 1150 Balance -260 970 150 Intake: Oral 890 970 150 Output: Gastric Drainage 1150 Other: Voiding Method Toilet Toilet Toilet # Voids 1 - Labs CBC & Chem 7: 10/15/22 08:24 10/15/22 08:24 Labs: Abnormal Lab Results - Last 24 Hours (Table) 10/15/22 10/15/22 10/15/22 Range/Units 08:24 16:34 20:04 POC Glucose (mg/dL) 139 H 124 H (70-110) mg/dL Iron 14 L (50-170) ug/dL TIBC 218 L (228-460) ug/dL % Saturation 6.27 L (12.00-45.00) Transferrin 156.0 L (204.0-354.0) mg/dL Microbiology - Last 24 Hours (Table) 10/13/22 15:19 Blood Culture - Preliminary Blood No Growth after 48 hours
[2022-10-16 16:25] LABS: Glucose,Whole Blood 135 mg/dL (70-110)
[2022-10-16] MEDS: DEXTROSE 5%-0.9% NACL 1,000 ML IV SCH (16:26)
[2022-10-16 20:14] LABS: Glucose,Whole Blood 159 mg/dL (70-110)
[2022-10-16] MEDS: ATORVASTATIN 10 MG TAB PO SCH (20:34)
[2022-10-17 06:08] LABS: Glucose,Whole Blood 104 mg/dL (70-110)
[2022-10-17] MEDS: FERROUS SULFATE 325 MG TAB PO SCH ×2 (06:10→16:36)
[2022-10-17] MEDS: LEVOTHYROXINE 88 MCG TAB PO SCH (06:10)
[2022-10-17] MEDS: INSULIN ASPART (NovoLOG) 100 UNIT/ML VIAL SQ SCH ×4 (06:11→21:14)
[2022-10-17] MEDS ORDERED: LACTULOSE 20 GM/30 ML CUP PO ONE (08:00)
[2022-10-17] MEDS: PANTOPRAZOLE 40 MG/10 ML VIAL IVP SCH (09:01)
[2022-10-17] MEDS: CYANOCOBALAMIN 500 MCG TAB PO SCH (09:01)
[2022-10-17] MEDS: OLANZapine 2.5 MG TAB PO SCH (09:01)
[2022-10-17] MEDS: RANOLAZINE 500 MG TAB.ER.12H PO SCH ×2 (09:01→21:14)
[2022-10-17] MEDS: METOPROLOL TARTRATE 12.5 MG TAB PO SCH ×2 (09:01→21:14)
[2022-10-17] MEDS: metroNIDAZOLE 500 MG TAB PO SCH ×3 (09:01→21:14)
[2022-10-17] MEDS: amLODIPine 5 MG TAB PO SCH (09:01)
[2022-10-17] MEDS: ASPIRIN 81 MG PO SCH (09:02)
[2022-10-17] MEDS: POTASSIUM CHLORIDE ER 10 MEQ TAB.ER.PRT PO SCH (09:02)
[2022-10-17] MEDS: CHOLECALCIFEROL 25 MCG (1000 IU) TABLET PO SCH (09:02)
[2022-10-17] MEDS: lisinopriL 5 MG TAB PO SCH (09:02)
[2022-10-17] MEDS: NON FORMULARY DRUG (Tadalafil [Tadalafil] 10 MG Tablet) PO SCH (09:05)
[2022-10-17 11:53] LABS: Glucose,Whole Blood 120 mg/dL (70-110)
[2022-10-17 12:15] LABS: Amorphous Sediment,Urine Rare /hpf; Appearance,Urine Clear (Clear); Bacteria,Urine Occasional /hpf; Bilirubin,Urine Negative (Negative); Blood,Urine Negative (Negative); Budding Yeast,Urine Occasional /hpf; Color,Urine Light Red; Glucose,Urine (UA) Negative (Negative); Ketones,Urine Negative (Negative); Leukocyte Esterase,Urine Large (Negative); Mucus,Urine Rare /hpf; Nitrite,Urine Positive (Negative); PH, Urine 5.5 (5.0-8.0); Protein,Urine Trace (Negative); RBC,Urine 1 /hpf (0-5); Squamous Epithelial Cell,Urine <1 /hpf (0-4); Urobilinogen,Urine <2.0 mg/dL (<2.0); WBC,Urine 10 /hpf (0-5)
[2022-10-17] MEDS: DULoxetine HCL 20 MG CAPSULE.DR PO SCH (14:49)
[2022-10-17] MEDS: DEXTROSE 5%-0.9% NACL 1,000 ML IV SCH ×2 (15:26→15:27)
--- NOTE | 2022-10-17 16:33 | P.PN ---
Subjective Progress Note Date: 10/17/22 Progress note Date of service 10/17/[address] Mensah. I did spoke with Dr. Garza today the surgeon in regard of Mrs. Collazo shortly with the underlying initial request for surgical consult was for Dr. Garza not for Dr. Don and when I did see her today Dr. Garza I did discuss that with her and she thought that she is only covering Dr. Don but the actuality is the patient and the family requesting Dr. White to be seen and managed surgically by Dr. Phillips for not Dr. Don and spoke with Dr. Garza today on the round explained the problem with the patient and she is seeing the patient currently and hopefully that she continue taking care of the patient as inpatient or outpatient. Patient has large liquidy stool today and as initially admitted because patient and her could not take care of the incontinent with large bowel softening herself at home and she could not have any solution for current problem and at that time on initially admission seen by the nurse practitioner and they stated that she had gastroenteritis patient subsequently developed nausea and vomiting and abdominal pain intermediate x-ray found that she had small bowel obstruction. And subsequently the patient was placed on nothing by mouth and we called the on-call was Dr. Chris Adams the NG tube in and rested the bowel and the repeat x-ray showed that she had stool in the sigmoid colon with the retention of the stool by the time initially Dr. Garza was indication however the consult was directed to Dr. White and Dr. Don was pump station operator but the the consult was originated to Dr. White. Today as I discuss it with Dr. Garza and I did, cancel the consult to Dr. Don and we discussed the case in detail and with the family as well. Patient temperature 98.9 for a her pulse rate 64 bpm respiratory rate 18/m nonlabored and her blood pressure 151/69 and her pulse ox 95 Patient is conscious alert oriented she wearing her dentures today she feeling b irish and she had large liquidy stools and no testing was done and I did order a stool test today for C. difficile and stool for Hemoccult 3. I did discuss also the presence of Zarate's esophagus and a fixed hiatal hernia and Dr. White will review that as well Neck was supple no JVD Chest was clear to auscultation percussion Heart was regular sinus rhythm she had history of hypotension on admission and currently her blood pressure mildly elevated she is on medication for that at this time Abdomen slightly distended and she had liquid diarrhea she has also in the incompetent. And discussed with Dr. Garza as well Extremities no edema positive pulses. Neurologically stable Patient seen by the psychiatrist in the hospital and she changes her medication and will continue monitoring patient as well as she will be followed by her outpatient psychiatrist and to see if any discrepancy between pulse opinion. The Assessment: #1 underlying diarrhea and continued today with a large amount. #2 anemia mixed picture #3 hypertension with hypertensive heart disease fairly controlled #4 dehydration severe as patient admitted that she wasn't able to eat or drink because afraid of having diarrhea at home. #5 underlying x-ray of small bowel obstruction/ileus and that's resolved. #6 rheumatoid arthritis and osteoarthritis. Plan: #1 we'll continue with Dr. White as her surgeon and to see what needed to be done. #[address] Don surgical consult. #3 stool for Hemoccults 3 and stool for C. difficile which was not done in the past her missing on the floor by nursing staff. #[address] White for accumulated. Objective - Vital Signs Vital signs: Vital Signs Temp 98.9 F 10/17/22 12:01 Pulse 64 10/17/22 15:06 Resp 18 10/17/22 15:06 BP 151/69 10/17/22 12:01 Pulse Ox 95 10/17/22 12:01 FiO2 Intake & Output 10/16/22 10/17/22 10/17/22 18:59 06:59 18:59 Intake Total 650 970 358 Output Total 0 200 Balance 650 970 158 Intake: Oral 650 970 358 Output: Gastric Drainage 0 Urine 0 200 Stool 0 Urine/Stool Mix 0 Emesis 0 Oral Regurgitation 0 Other 0 Other: Voiding Method Toilet Toilet Bedpan External Catheter # Voids 2 # Bowel Movements 0 1 - Labs CBC & Chem 7: 10/15/22 08:24 10/15/22 08:24 Labs: Abnormal Lab Results - Last 24 Hours (Table) 10/16/22 10/16/22 10/17/22 Range/Units 16:23 20:12 11:21 POC Glucose (mg/dL) 135 H 159 H (70-110) mg/dL Urine Protein Trace H (Negative) Urine Nitrite Positive H (Negative) Ur Leukocyte Esterase Large H (Negative) Urine WBC 10 H (0-5) /hpf Amorphous Sediment Rare H (None) /hpf Urine Bacteria Occasional H (None) /hpf Urine Mucus Rare H (None) /hpf Urine Yeast (Budding) Occasional H (None) /hpf 10/17/22 Range/Units 11:45 POC Glucose (mg/dL) 120 H (70-110) mg/dL Urine Protein (Negative) Urine Nitrite (Negative) Ur Leukocyte Esterase (Negative) Urine WBC (0-5) /hpf Amorphous Sediment (None) /hpf Urine Bacteria (None) /hpf Urine Mucus (None) /hpf Urine Yeast (Budding) (None) /hpf Microbiology - Last 24 Hours (Table) 10/13/22 15:19 Blood Culture - Preliminary Blood No Growth after 72 hours
[2022-10-17 16:37] LABS: Glucose,Whole Blood 140 mg/dL (70-110)
[2022-10-17] MEDS ORDERED: PEG 3350 (420 GM/BTL) + LYTES 4,000 ML BOTTLE PO ONE (17:32)
[2022-10-17 20:28] LABS: Glucose,Whole Blood 132 mg/dL (70-110)
--- NOTE | 2022-10-17 20:42 | P.PN ---
Subjective Progress Note Date: 10/17/22 CHIEF COMPLAINT: Gastroenteritis HISTORY OF PRESENT ILLNESS: The patient is a 87-year-old female who presents with diarrhea and gastroenteritis. Her family is at bedside. Her primary care provider, Dr. Olivia at bedside. Per request of family and primary care provider, anemia workup is being requested. Per discussion with family and PCP, patient has been having diarrhea prior to admission. Since admission, she was placed on antidiarrheal with subsequent ileus. Patient is passing flatus and re ports she is feeling well. She is tolerating a low fiber diet. Family is requesting intervention. ROS: No reports of nausea and vomiting. No fevers or chills. No new chest pain. PHYSICAL EXAM: VITAL SIGNS: Reviewed CONSTITUTIONAL: Well developed and in no acute distress. Pleasant. EYES: Conjuctivae without sclera icterus. Extraocular movements grossly intact. HEAD, EARS, NOSE, THROAT: Moist buccal mucosa. Head is atraumatic, normocephalic. Hears conversational speech. No nasal drainage. RESPIRATORY: Non-labored respirations and equal bilateral excursions. CARDIOVASCULAR: Palpable 2+ radial pulses. ABDOMEN: No peritonitis. Nontender. MUSCULOSKELETAL: No gross deformity of the lower extremities noted. No clubbing. No cyanosis. SKIN: Good skin turgor. Well perfused. NEUROLOGIC: Cranial nerves II through XII grossly intact. No focal or lateralizing signs. PSYCH: Alert to self. CLINICAL LABS: Reviewed. Urinalysis positive for nitrates, leukocyte esterase and urinary tract infection. Last hemoglobin 9.0, anemia. WBC normal. ASSESSMENT: 1. Ileus. 2. Gastroenteritis 3. Paraesophageal hiatal hernia 4. Hyponatremia 5. Moderately severe diverticulosis PLAN: 1. She is having bowel movements after lactulose. We'll continue a GoLYTELY prep for colonoscopy. 2. Upper endoscopy advised for anemia workup including paraesophageal hiatal hernia. 3. Family and PCP requesting intervention for which patient scheduled for upper and lower endoscopy prior to discharge. Objective - Vital Signs Vital signs: Vital Signs Temp 98.2 F 10/17/22 16:33 Pulse 67 10/17/22 16:33 Resp 18 10/17/22 16:33 BP 157/72 10/17/22 16:33 Pulse Ox 96 10/17/22 16:33 FiO2 Intake & Output 10/17/22 10/17/2210/18/23 06:59 18:59 06:59 Intake Total 970 448 Output Total 200 Balance 970 248 Intake: Oral 970 448 Output: Urine 200 Other: Voiding Method Toilet Bedpan External Catheter # Bowel Movements 1 - Labs CBC & Chem 7: 10/15/22 08:24 10/15/22 08:24 Labs: Abnormal Lab Results - Last 24 Hours (Table) 10/17/22 10/17/22 10/17/22 Range/Units 11:21 11:45 16:36 POC Glucose (mg/dL) 120 H 140 H (70-110) mg/dL Urine Protein Trace H (Negative) Urine Nitrite Positive H (Negative) Ur Leukocyte Esterase Large H (Negative) Urine WBC 10 H (0-5) /hpf Amorphous Sediment Rare H (None) /hpf Urine Bacteria Occasional H (None) /hpf Urine Mucus Rare H (None) /hpf Urine Yeast (Budding) Occasional H (None) /hpf 10/17/22 Range/Units 20:25 POC Glucose (mg/dL) 132 H (70-110) mg/dL Urine Protein (Negative) Urine Nitrite (Negative) Ur Leukocyte Esterase (Negative) Urine WBC (0-5) /hpf Amorphous Sediment (None) /hpf Urine Bacteria (None) /hpf Urine Mucus (None) /hpf Urine Yeast (Budding) (None) /hpf Microbiology - Last 24 Hours (Table) 10/13/22 15:19 Blood Culture - Preliminary Blood No Growth after 96 hours
[2022-10-17] MEDS: LACTATED RINGERS 1,000 ML IV SCH (21:13)
[2022-10-17] MEDS: ATORVASTATIN 10 MG TAB PO SCH (21:14)
[2022-10-18] MEDS: ONDANSETRON 4 MG/2 ML VIAL IVP PRN (01:43)
[2022-10-18] MEDS: DEXTROSE 5%-0.9% NACL 1,000 ML IV SCH ×3 (04:59→23:27)
[2022-10-18 06:08] LABS: Glucose,Whole Blood 110 mg/dL (70-110)
[2022-10-18] MEDS: INSULIN ASPART (NovoLOG) 100 UNIT/ML VIAL SQ SCH ×4 (06:12→20:35)
[2022-10-18] MEDS: FERROUS SULFATE 325 MG TAB PO SCH ×2 (06:14→17:30)
[2022-10-18] MEDS: LEVOTHYROXINE 88 MCG TAB PO SCH (06:14)
[2022-10-18] MEDS ORDERED: LACTULOSE 20 GM/30 ML CUP PO ONE (06:48)
[2022-10-18] MEDS: metroNIDAZOLE 500 MG TAB PO SCH ×3 (09:04→22:57)
[2022-10-18] MEDS: POTASSIUM CHLORIDE ER 10 MEQ TAB.ER.PRT PO SCH (09:04)
[2022-10-18] MEDS: METOPROLOL TARTRATE 12.5 MG TAB PO SCH ×2 (09:04→20:35)
[2022-10-18] MEDS: CHOLECALCIFEROL 25 MCG (1000 IU) TABLET PO SCH (09:04)
[2022-10-18] MEDS: lisinopriL 5 MG TAB PO SCH (09:04)
[2022-10-18] MEDS: amLODIPine 5 MG TAB PO SCH (09:04)
[2022-10-18] MEDS: CYANOCOBALAMIN 500 MCG TAB PO SCH (09:05)
[2022-10-18] MEDS: PANTOPRAZOLE 40 MG/10 ML VIAL IVP SCH (09:05)
[2022-10-18] MEDS: RANOLAZINE 500 MG TAB.ER.12H PO SCH ×2 (09:05→20:35)
[2022-10-18] MEDS: ASPIRIN 81 MG PO SCH (09:05)
[2022-10-18] MEDS: DULoxetine HCL 20 MG CAPSULE.DR PO SCH (09:07)
[2022-10-18 09:37] LABS: HCT 30.4 % (34.0-46.0); HGB 9.7 gm/dL (11.4-16.0); Hypochromasia Slight; MCV 96.9 fL (80.0-100.0); Mean Platelet Volume 8.8; Platelet Count 133 k/uL (150-450); Poikilocytosis Slight; RBC 3.14 m/uL (3.80-5.40); RDW 15.7 % (11.5-15.5)
[2022-10-18 10:04] LABS: Calcium 8.1 mg/dL (8.4-10.2); Potassium 3.9 mmol/L (3.5-5.1)
[2022-10-18] MEDS: NON FORMULARY DRUG (Tadalafil [Tadalafil] 10 MG Tablet) PO SCH (10:19)
[2022-10-18] MEDS ORDERED: PROPOFOL 10 MG/ML 20 ML VIAL IV ONE (10:49)
[2022-10-18] MEDS ORDERED: IV FLUID CONTINUATION 1,000 ML IV ONE (11:08)
--- NOTE | 2022-10-18 11:17 | P.PCN ---
Date of Procedure: 10/18/22 Description of Procedure: PREOPERATIVE DIAGNOSIS: Anemia Chronic diarrhea Paraesophageal hiatal hernia Gastroesophageal reflux disease POSTOPERATIVE DIAGNOSIS: Zarate's esophagus Gastritis with bleeding Anemia Chronic diarrhea Paraesophageal hiatal hernia Gastroesophageal reflux disease OPERATION: Esophagogastroduodenoscopy SURGEON: Elise White MD ANESTHESIA: MAC. INDICATIONS: The patient is a 87-year-old female who presents with anemia. Benefits and risks of the procedure were described. Informed consent was obtained. DESCRIPTION: The patient was brought into the endoscopy suite and laid in the left lateral decubitus position. An Olympus gastroscope was passed along the posterior o ropharynx down to the distal esophagus where the squamocolumnar junction was encountered at 24 cm from the incisors. Acute bleeding with intrathoracic stomach was identified from gastritis. More than 50% of the stomach was entrapped into the chest. The stomach was entered and no bile reflux was found. Additional findings are listed below. The first through third portion of the duodenum was examined and unremarkable. Retroflexion of the scope confirmed Hill grade 4 lower esophageal valve. The squamocolumnar junction demonstrated LA grade D erosive esophagitis with cold biopsy forceps obtained. The stomach was desufflated. The patient tolerated the procedure well. FINDINGS: Squamocolumnar junction 24 cm from the incisors. Diaphragmatic hiatus at 38 cm. Hiatal hernia, 14 cm, intrathoracic paraesophageal hiatal hernia; over 50% of the stomach Hill grade 4 lower esophageal valve. LA grade D erosive esophagitis, biopsies obtained for Zarate's esophagus No active duodenitis. Stigmata of bleeding from stomach, acute bleeding RECOMMENDATIONS: 1. Continue omeprazole for Zarate's disease 2. May benefit from repair paraesophageal hiatal hernia 3. Recommend colonoscopy for anemia workup
--- NOTE | 2022-10-18 11:18 | P.PN ---
Progress Note - Text Progress Note Date: 10/18/22 Patient had semisolid stool in the rectum despite prep. We'll defer colonoscopy after prep completed, Tuesday.
[2022-10-18 12:18] LABS: Glucose,Whole Blood 146 mg/dL (70-110)
[2022-10-18] MEDS: LACTULOSE 20 GM/30 ML CUP PO SCH ×2 (12:30→20:35)
--- NOTE | 2022-10-18 15:24 | P.CN ---
Psychiatric Consult - . Consult date: 10/16/22 Consult:: IDENTIFYING DATA: This patient is an 87 year old female with lives with her . REASON FOR REFERRAL: Psychiatry was consulted for "medication adjustment" HISTORY OF PRESENT ILLNESS: The patient presented to the hospital on 10/11/22 for nausea, vomiting and diarrhea, and was found to have ileus, gastroenteritis, paraesophageal hiatal hernia, hyponatremia and diverticulosis. Psychiatry was consulted for 's concern that Zyprexa may cause constipation. I evaluated patient on 10/17/22 and found her resting in her bed with her and son at bedside. She is pleasant, cooperative, and agreeable to the a ssessment. She reports feeling "sad" and overwhelmed with all of her medical problems currently. Family reports patient has been staying home, doesn't like to leave the house much, report low energy, decreased appetite, psychomotor slowing, ruminates on past failures. reports patient has had episodes of depression with irritability, staying in her house robe, not wanting to get dressed, and yelling. Family reports patient was on Cymbalta starting about 5-6 years ago and did well on it until she stopped it on her own about 2-3 years ago because she thought she didn't need it anymore. They report patient became depressed again after stopping the Cymbalta, was tried briefly on Prozac which she also stopped. then took patient to a new psychiatrist who started Ritalin which she took from June 2022 to September 17, 2022. Family reports the Ritalin was stopped due to concern over mood disturbance, was told patient has "bipolar disorder" and patient was started on Zyprexa 2.5 mg BID about 2 weeks ago. Today, patient reports she has been feeling sad, lonely, feels she needs someone to talk to. She had an incident last week where she called the police 5 times to her home, and reports she did this because she just needed someone to talk to instead of argue with. She reports watching the news at home which makes her feel frustrated and upset with world politics. She reports a history of anxiety with chronic worries, but denies panic attacks. At this time, patient denies any suicidal or homicidal ideation, intent or plan. Patient denies any auditory or visual hallucinations. She denies any paranoia or delusions. Patients denies any drug, alcohol or tobacco use. PAST PSYCHIATRIC HISTORY: Patient has a a history of depression and anxiety. Past psychiatric medication trials: Zoloft in the s, Cymbalta (worked well, stopped it on her own), Prozac (briefly). Patient denies any previous psychiatric hospitalizations; however notes state patient was recently disc harged from [facility] (stayed 3-4 days and discharged 10/11/22) . Patient sees a geriatric psychiatrist in [facility]. Patient denies any history of suicide attempts in the past. PAST MEDICAL HISTORY: From medical H&P dated 10/11/22: History of hypertension with hypertensive heart disease Underlying coronary artery disease and O2 bifemoral bypass was treated by Dr. Perkins vascular surgeon She has underlying rheumatoid arthritis and treated by production miner Dr. Mantilla. She had a history of coronary artery disease atherosclerotic heart disease and was treated by Dr. Jernigan foundry supervisor. She had a chronic kidney disease and has been treated by the nephrology Dr. Arriaga and her nurse practitioner She had psychiatric disorder and recently she had manic episode and she was called the police she had tendency to go out the home with agitation and argumentative. With decrease her intake. Her psychiatric was Dr. Miller as outpatient History of pulmonary hypertension seen by Dr. Ruiz. Pulmonary and critical care. From Dr. Garza 10/16/22: 1. Ileus. 2. Gastroenteritis 3. Paraesophageal hiatal hernia 4. Hyponatremia 5. Moderately severe diverticulosis ALLERGIES: as per EMR. CHEMICAL DEPENDENCY HISTORY: Patients denies any drug, alcohol or tobacco use. FAMILY PSYCHIATRIC/SUBSTANCE USE HISTORY: Brother with PTSD from , Son with depression SOCIAL HISTORY: Patient is ; is supportive. She is the youngest of 11 children; all siblings are except for a 92 year old brother. Has a son who is supportive. 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 Patient and family reports her depression did not start until after group home. She denies any history of physical, emotional or sexual abuse. MENTAL STATUS EXAM: General Appearance: Patient appears to be stated age, mildly disheveled from sleeping in hospital bed, skin discolored due to age, dressed in hospital gown. Behavior: Patient is calmly lying in bed without any agitated behavior. Psychomotor slowed. Good eye contact. Speech: Patient's speech is fluent and non-pressured. Mood/Affect: Patient reports their mood is "sad", affect is congruent. Suicidality/Homicidality: Patient denies having any suicidal or homicidal ideation intent or plan. Perceptions: Patient denies any visual hallucinations and denies any auditory hallucinations. Though content/process: There is no evidence of any delusional thought content and thought process is linear and goal-directed. Memory and concentration: Alert and oriented to person, place, time and situation. Grossly intact for the purposes of this session. Judgment and insight: Fair IMPRESSIONS: Major depressive disorder, recurrent, mild to moderate Unspecified anxiety disorder PLAN: -At this time patient DOES NOT meet criteria for inpatient psychiatric admission. -Delirium precautions recommended with patient including - avoiding use of narcotics and MAJOR GIFTS DIRECTOR sedatives, limit anticholinergic medications when possible, frequent re-orientation, minimize use of restraints, open window shades during the day and close them at night. -Would recommend the following medication changes/additions: --Discontinue Zyprexa 2.5 mg BID since history and symptoms appear more consistent with MDD than Bipolar disorder. --Start Cymbalta 20 mg daily for depression/anxiety. This is a low dose that can be gradually increased on an outpatient basis as tolerated. This was discussed with patient and family who expressed agreement. -vehicle delivery worker to provide patient with outpatient mental health/psychiatry resources for appropriate follow up upon discharge. -Communicated plan to patient's nurse -Will continue to follow along -Please contact with any questions. 10/16/22 13:39 10/18/22 14:51
--- NOTE | 2022-10-18 15:35 | P.PN ---
Progress Note - Text Progress Note Date: 10/18/22 PSYCHIATRY FOLLOW-UP NOTE: Interval History: I evaluated patient on 10/18/22. Patient was seen sitting up in her bed eating some ice cream with her and son at bedside. She was pleasant, calm, cooperative and agreeable to speak with this publicity writer. She reports feeling "so w ell" today, reports she had a "surgery" today and appears more hopeful. Family reports patient underwent an upper GI scope today and is prepping for a colonoscopy tomorrow. She reports good mood, denies any concerns today. She is tolerating the discontinuation of the Zyprexa and starting the Cymbalta 20 mg daily. She has been compliant with medications, denies side effects. At this time patient denies any suicidal or homicidal ideations, intent or plan. Patient denies any auditory or visual hallucinations. She denies any paranoia or delusions. No reports of agitation or disruptive behavior overnight. Mental Status Exam: General Appearance: Patient appears to be stated age, good hygiene and grooming, skin on hands discolored due to age, dressed in hospital gown. Behavior: Patient is calmly sitting up in bed without any agitated behavior. Good eye contact. Speech: Patient's speech is fluent and non-pressured. Mood/Affect: Patient reports her mood is "good", affect is congruent. Suicidality/Homicidality: Patient denies having any suicidal or homicidal ideation intent or plan. Perceptions: Patient denies any visual hallucinations and denies any auditory hallucinations. Though content/process: There is no evidence of any delusional thought content and thought process is linear and goal-directed. Memory and concentration: Alert and oriented to person, place, time (weekday, mo nth, year) and situation. Grossly intact for the purposes of this session. Judgment and insight: Improving mildly Plan: IMPRESSIONS: Major depressive disorder, recurrent, mild to moderate Unspecified anxiety disorder PLAN: -At this time patient DOES NOT meet criteria for inpatient psychiatric admission. -Delirium precautions recommended with patient including - avoiding use of narcotics and INDUSTRIAL INSULATOR sedatives, limit anticholinergic medications when possible, frequent re-orientation, minimize use of restraints, open window shades during the day and close them at night. -Would recommend the following medication changes/additions: --Continue Cymbalta 20 mg daily for depression/anxiety. This is a low dose that can be gradually increased on an outpatient basis as tolerated. This was discussed with patient and family who expressed agreement. -flat screen worker to provide patient with outpatient mental health/psychiatry resources for appropriate follow up upon discharge. -Communicated plan to patient and family at bedside. -Psychiatry will sign off. -Please contact with any questions.
--- NOTE | 2022-10-18 16:47 | P.PN ---
Subjective Progress Note Date: 10/18/22 (EGD done today by Dr. Garza with evidence of Zarate's esophagus.) Progress note Date of service 10/18/[address] Olivia. Patient seen today [id number] and discussed with the patient and her on her son. Patient has been taken to upper endoscopy suite and found that also she had the Zarate's esophagus as EGD done by Dr. Gabriel. Attempt with colonoscopy however patient has stool retained in the large bowel and colonoscopy could not be done and she will be prepped again and a trial of colonoscopy old on after the preparation by Dr. Garza. We did did discontinue the consult with Dr. Clements she was on medication off the hospital and the Dr. Garza will be taking care of the current problem. As patient feeding better her vital sign indicating temperature 97.7 F oral and her heart rate 51 bpm and respiratory rate 18 for minute and blood pressure 112/57 with a mean 75 her oxygen saturation ranging between 96-94 on room air. On the exam: Head was normocephalic and atraumatic and she looked better today, she wearing her dentures upper and lower. Able to speak normally no evidence of the strokes no facial symmetry neck was supple no JVD no thyromegaly no lymphadenopathy and trachea midline. Chest was clear auscultation percussion Heart was regular sinus rhythm Abdomen was soft positive bowel sounds mildly distended and he tried to clean her bowel with the bowel prep. And the the extremities no edema and multiple previous old ecchymosis on the lower legs. Psychiatry has been seen by psychiatrist patient her name Corry Shaw with the impression of the psychiatrists major depressive disorder recurrent [id number] moderate with unspecified antianxiety. And she changed her from Zyprexa 2 Cymbalta We'll continue the same recommendation until patient able to be discharged and to see her for an psychiatrists for for further follow-up and the recommendation on the chart the admission to the psychiatrist [facility] which is [facility] at that time they diagnosed her with bipolar disorder and that stopped Ritalin medication and started her on Zyprexa however her thought that her constipation and diarrhea and which is could be soup aureus diarrhea could be related to Zyprexa and these medication was only used for a few days only I did not believe that that was the reason, however she will be following with her psychiatrist and will continue the in- hospital psychiatrist. Neurological evaluation stable conscious alert no lateralizing sign no evidence of stroke. Assessment: Patient admitted initially with diarrhea and subsequently found to have small bowel obstruction resolved seen by Dr. Solano who did start Vogt of ileus more than obstruction and which is resolved and the a shunt had at the time of admission nausea and vomiting and diarrhea and the latest studies by the x-ray of the abdomen was indicating the small bowel obstruction and subsequently stool retention. Currently treated by Dr. Solano and she has been prepped for the colonoscopy. Also gastric content was dark brown at the time that she had nausea and repeated vomiting found was positive for stool for Hemoccult with the underlying history of Zarate's esophagus with consulted GI Dr. Starr Ross however she was also out of town and could not be seen the patient and luckily we able to see Dr. Solano who able to investigate the patient complicated follow-up. Patient currently with the prep for the colonoscopy and will see fourth advice from Dr. Solano and treatment as well Objective - Vital Signs Vital signs: Vital Signs Temp 97.7 F 10/18/22 15:40 Pulse 51 L 10/18/22 15:40 Resp 18 10/18/22 15:40 BP 112/57 10/18/22 15:40 Pulse Ox 94 L 10/18/22 15:40 FiO2 Intake & Output 10/17/22 10/18/22 10/18/22 18:59 06:59 18:59 Intake Total 448 1999 770 Output Total 200 0 Balance 248 1999 770 Intake: IV 50 Oral 448 1999 720 Output: Urine 200 Stool 0 Other: Voiding Method Bedpan Bedpan External Catheter External Catheter # Voids 2 10 # Bowel Movements 1 4 20 - Labs CBC & Chem 7: 10/18/22 09:00 10/18/22 09:00 Labs: Abnormal Lab Results - Last 24 Hours (Table) 10/17/22 10/17/22 10/18/22 Range/Units 16:36 20:25 09:00 RBC 3.14 L (3.80-5.40) m/uL Hgb 9.7 L (11.4-16.0) gm/dL Hct 30.4 L (34.0-46.0) % RDW 15.7 H (11.5-15.5) % Plt Count 133 L (150-450) k/uL Sodium (137-145) mmol/L Chloride (98-107) mmol/L Carbon Dioxide (22-30) mmol/L Glucose (74-99) mg/dL POC Glucose (mg/dL) 140 H 132 H (70-110) mg/dL Calcium (8.4-10.2) mg/dL 10/18/22 10/18/22 Range/Units 09:00 12:16 RBC (3.80-5.40) m/uL Hgb (11.4-16.0) gm/dL Hct (34.0-46.0) % RDW (11.5-15.5) % Plt Count (150-450) k/uL Sodium 136 L (137-145) mmol/L Chloride 110 H (98-107) mmol/L Carbon Dioxide 19 L (22-30) mmol/L Glucose 129 H (74-99) mg/dL POC Glucose (mg/dL) 146 H (70-110) mg/dL Calcium 8.1 L (8.4-10.2) mg/dL Microbiology - Last 24 Hours (Table) 10/13/22 15:19 Blood Culture - Preliminary Blood No Growth after 96 hours
[2022-10-18 17:01] LABS: Glucose,Whole Blood 115 mg/dL (70-110)
[2022-10-18 20:03] LABS: Glucose,Whole Blood 125 mg/dL (70-110)
[2022-10-18] MEDS: ATORVASTATIN 10 MG TAB PO SCH (20:35)
[2022-10-19] MEDS: LEVOTHYROXINE 88 MCG TAB PO SCH (05:40)
[2022-10-19 06:11] LABS: Glucose,Whole Blood 100 mg/dL (70-110)
[2022-10-19] MEDS: INSULIN ASPART (NovoLOG) 100 UNIT/ML VIAL SQ SCH ×4 (07:46→21:36)
[2022-10-19] MEDS ORDERED: PEG 3350 (420 GM/BTL) + LYTES 4,000 ML BOTTLE PO ONE (08:00)
[2022-10-19] MEDS: metroNIDAZOLE 500 MG TAB PO SCH ×3 (10:07→21:35)
[2022-10-19] MEDS: DULoxetine HCL 20 MG CAPSULE.DR PO SCH (10:07)
[2022-10-19] MEDS: ASPIRIN 81 MG PO SCH (10:07)
[2022-10-19] MEDS: amLODIPine 5 MG TAB PO SCH (10:07)
[2022-10-19] MEDS: CHOLECALCIFEROL 25 MCG (1000 IU) TABLET PO SCH (10:07)
[2022-10-19] MEDS: RANOLAZINE 500 MG TAB.ER.12H PO SCH ×2 (10:08→21:35)
[2022-10-19] MEDS: CYANOCOBALAMIN 500 MCG TAB PO SCH (10:08)
[2022-10-19] MEDS: lisinopriL 5 MG TAB PO SCH (10:08)
[2022-10-19] MEDS: POTASSIUM CHLORIDE ER 10 MEQ TAB.ER.PRT PO SCH (10:08)
[2022-10-19] MEDS: LACTULOSE 20 GM/30 ML CUP PO SCH ×2 (10:09→21:35)
[2022-10-19] MEDS: FERROUS SULFATE 325 MG TAB PO SCH ×2 (10:09→17:54)
[2022-10-19] MEDS: PANTOPRAZOLE 40 MG/10 ML VIAL IVP SCH (10:10)
[2022-10-19] MEDS: NON FORMULARY DRUG (Tadalafil [Tadalafil] 10 MG Tablet) PO SCH (10:11)
[2022-10-19] MEDS: METOPROLOL TARTRATE 12.5 MG TAB PO SCH ×2 (10:11→21:37)
[2022-10-19 11:51] LABS: Glucose,Whole Blood 148 mg/dL (70-110)
[2022-10-19] MEDS: DEXTROSE 5%-0.9% NACL 1,000 ML IV SCH ×2 (14:12→23:16)
--- NOTE | 2022-10-19 16:04 | P.PN ---
Subjective Progress Note Date: 10/19/22 CHIEF COMPLAINT: Diarrhea HISTORY OF PRESENT ILLNESS: Patient status post EGD in regards to her anemia. 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 Patient has been placed on omeprazole. Colonoscopy was recommended. Patient was still having semisolid stools yesterday despite bowel prep. Colonoscopy is been rescheduled for tomorrow. Patient undergoing another bowel prep today. Patient denies any abdominal pain. Sitting in bed comfortably. Afebrile. Hemoglobin stable at 9.7 stool for occult blood negative PHYSICAL EXAM: VITAL SIGNS: Reviewed. CONSTITUTIONAL: Well developed and in no acute distress. Pleasant. EYES: Conjuctivae without sclera icterus. Extraocular movements grossly intact. HEAD, EARS, NOSE, THROAT: Moist buccal mucosa. Head is atraumatic, normocephalic. Hears conversational speech. No nasal drainage. RESPIRATORY: Non-labored respirations and equal bilateral excursions. CARDIOVASCULAR: Palpable 2+ radial pulses. ABDOMEN: No peritonitis. Nontender. MUSCULOSKELETAL: No gross deformity of the lower extremities noted. No clubbing. No cyanosis. SKIN: Good skin turgor. Well perfused. NEUROLOGIC: Cranial nerves II through XII grossly intact. No focal or lateralizing signs. PSYCH: Alert to self. ASSESSMENT: 1. Ileus. 2. Gastroenteritis 3. Paraesophageal hiatal hernia 4. Hyponatremia 5. Moderately severe diverticulosis 6. Zarate's esophagus 7. Paraesophageal hiatal hernia 8. Gastritis with bleeding PLAN: -Patient scheduled for colonoscopy tomorrow with Dr. White for further an emia workup -Bowel prep today -Nothing by mouth after midnight -Continue Protonix -Patient may benefit from repair of paraesophageal hiatal hernia Physician Medical Laboratory Technical Officer note has been reviewed by physician. Signing provider agrees with the documented findings, assessment, and plan of care. Please see additional documentation below Patient had attempted upper and lower endoscopy yesterday however due to moderate retained semisolid stool in the rectum, colonoscopy canceled. Patient placed on GoLYTELY 4 L for adequate bowel prep including clear liquid diet. We'll proceed with lower endoscopy after bowel prep to further assess anemia as well as personal history of chronic diarrhea. Stool cultures unremarkable. Objective - Vital Signs Vital signs: Vital Signs Temp 98.1 F 10/19/22 08:00 Pulse 58 L 10/19/22 11:34 Resp 16 10/19/22 11:34 BP 151/66 10/19/22 11:34 Pulse Ox 96 10/19/22 11:34 FiO2 Intake & Output 10/18/22 10/19/22 10/19/22 18:59 06:59 18:59 Intake Total 1310 240 Balance 1310 240 Intake: IV 50 Oral 1260 240 Other: Voiding Method Bedpan Diaper # Voids 10 1 3 # Bowel Movements 20 1 1 - Labs CBC & Chem 7: 10/18/22 09:00 10/18/22 09:00 Labs: Abnormal Lab Results - Last 24 Hours (Table) 10/18/22 10/18/22 10/19/22 Range/Units 16:59 20:01 11:36 POC Glucose (mg/dL) 115 H 125 H 148 H (70-110) mg/dL Microbiology - Last 24 Hours (Table) 10/12/22 07:36 Stool Culture - Final Stool 10/13/22 15:19 Blood Culture - Preliminary Blood No Growth after 120 hours
[2022-10-19 16:30] LABS: Glucose,Whole Blood 108 mg/dL (70-110)
--- NOTE | 2022-10-19 16:42 | P.PN ---
Subjective Progress Note Date: 10/19/22 (Colonoscopy tomorrow) Progress note Date of service 10/19/[address] Olivia. Patient seen [id number] today and she was comfortable sleeping and she is prepped for colonoscopy tomorrow expected The patient had still mixed stool liquidy with solids and Nam., Stool test was culture negative. Patient had EGD by Dr. Gabriel found to have gastritis and esophagitis and continued on PPI probably the drop of the hemoglobin was from the upper GI tract. Patient has ileus and small bowel obstruction and larger retention of stool with probable superius diarrhea. Yesterday the preparation was not complete and Dr. Gabriel did schedule him for tomorrow for colonoscopy to evaluate as well and patient appeared to be she had history of chronic incontinent as well. Patient seen by the psychiatry inpatient and they change her medication to Cymbalta, so far patient doesn't have no exacerbation or manic attack and she is calm and quiet and she address the diagnoses of depression. Vital sign temperature 98.1, heart rate 50 bpm was due to the beta blockers respiratory rate 16/m nonlabored, blood pressure 146/64 with a mean 91, oxygen saturation 96%. Her blood sugar was fluctuating with 100-148 still in good control. Patient also treated with lactulose by Dr. Gabriel for cleansing the bowel for purposes of colonoscopy. On examination the head was normocephalic and atraumatic pupil was equal reactive history of cataract in the past surgery no rhinitis, oropharynx dentures upper and lower. Neck was supple no JVD no thyromegaly no lymph adenopathy trachea midline Chest was clear to auscultation and percussion and no wheezes or rhonchi's Heart regular sinus rhythm no evidence of the chest pain Abdomen distended positive bowel sounds no tenderness in the four-quadrant. Stated that she didn't have diarrhea at the time of the exam at lunchtime 3 lower extremities no edema and positive pulses Psychiatry stable Neurologically stable. Assessment: #1 patient with history of diarrhea on admission inability to control her bowel movement #2 positive vomitus of occult blood probably secondary to gastritis and packed esophagitis #[address] Gabriel on 10/18/2022 and biopsy was done #4 underlying small bowel obstruction, followed by ileus followed by retention of the sigmoid colon and descending with the stools #5 superius diarrhea with inability to control #6 hypertension with hypertensive heart disease #7 history of recent admission to [facility] and treated her with Librax #8 patient seen in the hospital of this admission by Dr. Corry Page psychiatrist who changed her medication to Cymbalta at patient continue on that at this time. With the assumption of Zyprexa may cause constipation however she only had it for only a few days unlikely. #9 history of peripheral vascular disease with a wart from bypass. #10 history of pulmonary hypertension treated by pulmonary and critical care Dr. Ruiz . #11 anemia and patient was placed on iron supplementation. #12 dehydration #13 history of chronic kidney disease stage III. Plan: #1 patient will have colonoscopy Pal for for further evaluation of the colon and also the loose bowel movement with diarrhea #2 we'll continue the current treatment and we will be waiting for the results as well #3 laboratory in a.m. BMP and a CBC with differential. And magnesium. Objective - Vital Signs Vital signs: Vital Signs Temp 98.1 F 10/19/22 08:00 Pulse 58 L 10/19/22 11:34 Resp 16 10/19/22 11:34 BP 151/66 10/19/22 11:34 Pulse Ox 96 10/19/22 11:34 FiO2 Intake & Output 10/18/22 10/19/22 10/19/22 18:59 06:59 18:59 Intake Total 1310 240 Balance 1310 240 Intake: IV 50 Oral 1260 240 Other: Voiding Method Bedpan Diaper # Voids 10 1 3 # Bowel Movements 20 1 1 - Labs CBC & Chem 7: 10/18/22 09:00 10/18/22 09:00 Labs: Abnormal Lab Results - Last 24 Hours (Table) 10/18/22 10/18/22 10/19/22 Range/Units 16:59 20:01 11:36 POC Glucose (mg/dL) 115 H 125 H 148 H (70-110) mg/dL Microbiology - Last 24 Hours (Table) 10/12/22 07:36 Stool Culture - Final Stool 10/13/22 15:19 Blood Culture - Preliminary Blood No Growth after 120 hours
[2022-10-19] MEDS: LACTATED RINGERS 1,000 ML IV SCH (19:11)
[2022-10-19 21:20] LABS: Glucose,Whole Blood 153 mg/dL (70-110)
[2022-10-19] MEDS: ATORVASTATIN 10 MG TAB PO SCH (21:35)
[2022-10-20 06:06] LABS: Glucose,Whole Blood 128 mg/dL (70-110)
[2022-10-20] MEDS: INSULIN ASPART (NovoLOG) 100 UNIT/ML VIAL SQ SCH ×4 (06:07→20:21)
[2022-10-20] MEDS: FERROUS SULFATE 325 MG TAB PO SCH ×2 (06:08→12:30)
[2022-10-20] MEDS: LEVOTHYROXINE 88 MCG TAB PO SCH (06:08)
[2022-10-20 08:43] LABS: Basophils % (A) 0 %; Eosinophils # (A) 0.1 k/uL (0-0.7); Eosinophils % (A) 2 %; HCT 27.6 % (34.0-46.0); Hypochromasia Slight; Lymphocytes # (A) 0.9 k/uL (1.0-4.8); Lymphocytes % (A) 25 %; MCH 31.4 pg (25.0-35.0); MCHC 32.5 g/dL (31.0-37.0); MCV 96.4 fL (80.0-100.0); Mean Platelet Volume 8.9; Monocytes # (A) 0.2 k/uL (0-1.0); Monocytes % (A) 4 %; Neutrophils # (A) 2.4 k/uL (1.3-7.7); Neutrophils % (A) 66 %; Platelet Count 145 k/uL (150-450); Poikilocytosis Slight; RBC 2.86 m/uL (3.80-5.40); RDW 15.7 % (11.5-15.5); WBC 3.6 k/uL (3.8-10.6)
[2022-10-20] MEDS: CYANOCOBALAMIN 500 MCG TAB PO SCH (08:43)
[2022-10-20] MEDS: CHOLECALCIFEROL 25 MCG (1000 IU) TABLET PO SCH (08:43)
[2022-10-20] MEDS: LACTULOSE 20 GM/30 ML CUP PO SCH ×2 (08:43→20:07)
[2022-10-20] MEDS: PANTOPRAZOLE 40 MG/10 ML VIAL IVP SCH (08:50)
[2022-10-20 08:56] LABS: Magnesium 1.7 mg/dL (1.6-2.3)
[2022-10-20] MEDS ORDERED: IV FLUID CONTINUATION 1,000 ML IV ONE ×2 (11:34)
[2022-10-20] MEDS ORDERED: PROPOFOL 10 MG/ML 20 ML VIAL IV ONE (11:35)
[2022-10-20] MEDS: lisinopriL 5 MG TAB PO SCH (12:29)
[2022-10-20] MEDS: RANOLAZINE 500 MG TAB.ER.12H PO SCH ×2 (12:29→20:07)
[2022-10-20] MEDS: ASPIRIN 81 MG PO SCH (12:30)
[2022-10-20] MEDS: METOPROLOL TARTRATE 12.5 MG TAB PO SCH ×2 (12:30→20:07)
[2022-10-20] MEDS: NON FORMULARY DRUG (Tadalafil [Tadalafil] 10 MG Tablet) PO SCH (12:30)
[2022-10-20] MEDS: metroNIDAZOLE 500 MG TAB PO SCH (12:30)
[2022-10-20] MEDS: POTASSIUM CHLORIDE ER 10 MEQ TAB.ER.PRT PO SCH (12:30)
[2022-10-20] MEDS: amLODIPine 5 MG TAB PO SCH (12:30)
[2022-10-20 12:33] LABS: Glucose,Whole Blood 217 mg/dL (70-110)
[2022-10-20] MEDS: DULoxetine HCL 20 MG CAPSULE.DR PO SCH (12:35)
--- NOTE | 2022-10-20 13:31 | P.PN ---
Subjective Progress Note Date: 10/20/22 (Status post colonoscopy today on 10/20/2022) Progress note Date of service 10/20/[address] Mensah. Patient seen today evaluated and discussed with patient, , son. Patient had today colonoscopy by Dr. Rose and she had polyp has been removed I don't have the dictation yet from Dr. Garza because of that just lost procedure. Patient had some medication during the procedure and currently she is feeling fine but her blood pressure was still not well controlled. Procedure. As a discussed in detail with and and patient and apparently the plan for shelter placement for rehabilitation and conditioning as that she has been deconditioning and inability to walk with generalized weakness. Currently as patient seen and examined: Head was normocephalic and atraumatic and pupil was equal reactive and the neck was supple no JVD. Chest was clear to auscultation and percussion Heart was regular sinus rhythm and no chest pain Abdomen status post colonoscopy and the found 2 polyps by patient discussion however I don't have yet the dictation for the details. The external Extremities no edema and positive pulses Psychiatry stable Neurology stable. Assessment patient currently stable general condition and the discussion of the plan for transfer to [facility] for further follow-up. We don't have the the biopsy results from the polyp because he just done now. And the plan for patient conditioning at [facility] with the underlying loose bowel as well as incontinent as well as generalized weakness. Detailed discussion and we discussed with Celine the nurse inventory planner and we'll be looking for the shelter. Medication today will be adjusted an d will obtain physical therapy and DC his IV fluids. And allow patient to eat according to Dr. Garza orders Objective - Vital Signs Vital signs: Vital Signs Temp 98.3 F 10/20/22 08:00 Pulse 60 10/20/22 12:00 Resp 12 10/20/22 12:00 BP 166/63 10/20/22 12:00 Pulse Ox 95 10/20/22 12:00 FiO2 Intake & Output 10/19/22 10/20/22 10/20/22 18:59 06:59 18:59 Intake Total 240 664 400 Output Total 0 Balance 240 664 400 Intake: IV 400 Intake, IV Titration 664 Amount IV Fluid Continuation 1, 664 000 ml @ 0 mls/hr IV .[facility] Rx#:[id number] Oral 240 Output: Stool 0 Other: Voiding Method Diaper Diaper Incontinent Incontinent # Voids 3 2 # Bowel Movements 1 1 - Labs CBC & Chem 7: 10/20/22 08:17 10/20/22 08:17 Labs: Abnormal Lab Results - Last 24 Hours (Table) 10/19/22 10/20/22 10/20/22 Range/Units 21:19 06:05 08:17 WBC 3.6 L (3.8-10.6) k/uL RBC 2.86 L (3.80-5.40) m/uL Hgb 9.0 L (11.4-16.0) gm/dL Hct 27.6 L (34.0-46.0) % RDW 15.7 H (11.5-15.5) % Plt Count 145 L (150-450) k/uL Lymphocytes # 0.9 L (1.0-4.8) k/uL Chloride (98-107) mmol/L Carbon Dioxide (22-30) mmol/L BUN (7-17) mg/dL Glucose (74-99) mg/dL POC Glucose (mg/dL) 153 H 128 H (70-110) mg/dL Calcium (8.4-10.2) mg/dL 10/20/22 10/20/22 Range/Units 08:17 12:30 WBC (3.8-10.6) k/uL RBC (3.80-5.40) m/uL Hgb (11.4-16.0) gm/dL Hct (34.0-46.0) % RDW (11.5-15.5) % Plt Count (150-450) k/uL Lymphocytes # (1.0-4.8) k/uL Chloride 115 H (98-107) mmol/L Carbon Dioxide 19 L (22-30) mmol/L BUN 4 L (7-17) mg/dL Glucose 130 H (74-99) mg/dL POC Glucose (mg/dL) 217 H (70-110) mg/dL Calcium 8.0 L (8.4-10.2) mg/dL Microbiology - Last 24 Hours (Table) 10/13/22 15:19 Blood Culture - Final Blood No Growth after 144 hours 10/12/22 07:36 Stool Culture - Final Stool
[2022-10-20 16:26] LABS: Glucose,Whole Blood 120 mg/dL (70-110)
[2022-10-20 18:33] LABS: Appearance,Urine Cloudy (Clear); Bacteria,Urine Many /hpf; Bilirubin,Urine Negative (Negative); Blood,Urine Negative (Negative); Budding Yeast,Urine Many /hpf; Color,Urine Dark Brown; Glucose,Urine (UA) Negative (Negative); Ketones,Urine Negative (Negative); Leukocyte Esterase,Urine Large (Negative); Mucus,Urine Few /hpf; Nitrite,Urine Positive (Negative); PH, Urine 5.5 (5.0-8.0); Protein,Urine Trace (Negative); RBC,Urine 10 /hpf (0-5); Specific Gravity,Urine 1.018 (1.001-1.035); Urobilinogen,Urine <2.0 mg/dL (<2.0); WBC,Urine 13 /hpf (0-5)
[2022-10-20 20:02] LABS: Glucose,Whole Blood 96 mg/dL (70-110)
[2022-10-20] MEDS: ATORVASTATIN 10 MG TAB PO SCH (20:07)
[2022-10-21 06:11] LABS: Glucose,Whole Blood 85 mg/dL (70-110)
[2022-10-21] MEDS: INSULIN ASPART (NovoLOG) 100 UNIT/ML VIAL SQ SCH ×2 (06:18→12:48)
[2022-10-21] MEDS: LEVOTHYROXINE 88 MCG TAB PO SCH (06:22)
[2022-10-21] MEDS: FERROUS SULFATE 325 MG TAB PO SCH (06:22)
[2022-10-21] MEDS: amLODIPine 5 MG TAB PO SCH (09:59)
[2022-10-21] MEDS: ASPIRIN 81 MG PO SCH (09:59)
[2022-10-21] MEDS: METOPROLOL TARTRATE 12.5 MG TAB PO SCH (09:59)
[2022-10-21] MEDS: lisinopriL 5 MG TAB PO SCH (09:59)
[2022-10-21] MEDS: CHOLECALCIFEROL 25 MCG (1000 IU) TABLET PO SCH (09:59)
[2022-10-21] MEDS: RANOLAZINE 500 MG TAB.ER.12H PO SCH (10:00)
[2022-10-21] MEDS: DULoxetine HCL 20 MG CAPSULE.DR PO SCH (10:00)
[2022-10-21] MEDS: POTASSIUM CHLORIDE ER 10 MEQ TAB.ER.PRT PO SCH (10:00)
[2022-10-21] MEDS: CYANOCOBALAMIN 500 MCG TAB PO SCH (10:00)
[2022-10-21 10:52] VITALS: TEMP 98.4
[2022-10-21 11:37] LABS: Glucose,Whole Blood 93 mg/dL (70-110)
[2022-10-21] MEDS: NON FORMULARY DRUG (Tadalafil [Tadalafil] 10 MG Tablet) PO SCH (11:40)
[2022-10-21] MEDS: LACTULOSE 20 GM/30 ML CUP PO SCH (11:40)
--- NOTE | 2022-10-21 11:43 | P.PN ---
Subjective Progress Note Date: 10/21/22 CHIEF COMPLAINT: Diarrhea HISTORY OF PRESENT ILLNESS: Patient status post EGD in regards to her anemia. 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 Patient has been placed on omeprazole. Patient status post colonoscopy with evidence of diverticulosis and colon polyp. Patient lying in bed comfortably resting. No reports of abdominal pain. Afebrile. hgb 9.0 PHYSICAL EXAM: VITAL SIGNS: Reviewed. CONSTITUTIONAL: Well developed and in no acute distress. Pleasant. EYES: Conjuctivae without sclera icterus. Extraocular movements grossly intact. HEAD, EARS, NOSE, THROAT: Moist buccal mucosa. Head is atraumatic, normocephalic. Hears conversational speech. No nasal drainage. RESPIRATORY: Non-labored respirations and equal bilateral excursions. CARDIOVASCULAR: Palpable 2+ radial pulses. ABDOMEN: No peritonitis. Nontender. MUSCULOSKELETAL: No gross deformity of the lower extremities noted. No clubbing. No cyanosis. SKIN: Good skin turgor. Well perfused. NEUROLOGIC: Cranial nerves II through XII grossly intact. No focal or lateralizing signs. PSYCH: Alert to self. ASSESSMENT: 1. Ileus. 2. Gastroenteritis 3. Paraesophageal hiatal hernia 4. Hyponatremia 5. Moderately severe diverticulosis 6. Zarate's esophagus 7. Paraesophageal hiatal hernia 8. Gastritis with bleeding 9. Diverticulosis 10. Colon polyp PLAN: -Start low fiber diet -Continue Protonix -Patient may benefit from repair of paraesophageal hiatal hernia Physician Button Decorating Machine Operator note has been reviewed by physician. Signing provider agrees with the documented findings, assessment, and plan of care. She is clinically stable. Low fiber diet advised. Stable for discharge with outpatient follow-up. Objective - Vital Signs Vital signs: Vital Signs Temp 98.4 F 10/21/22 09:55 Pulse 57 L 10/21/22 09:55 Resp 18 10/21/22 09:55 BP 164/65 10/21/22 09:55 Pulse Ox 96 10/21/22 09:55 FiO2 Intake & Output 10/20/22 10/21/22 10/21/22 18:59 06:59 18:59 Intake Total 1914 485 Output Total 0 Balance 1914 485 Intake: IV 400 Intake, IV Titration 1064 Amount Dextrose 5%-0.9% NaCl 1, 1064 000 ml @ 83 mls/hr IV . Q12H3M [facility] Rx#:[id number] Oral 450 485 Output: Stool 0 Other: Voiding Method Diaper Diaper Diaper Incontinent Incontinent Incontinent # Voids 2 # Bowel Movements 1 - Labs CBC & Chem 7: 10/20/22 08:17 10/20/22 08:17 Labs: Abnormal Lab Results - Last 24 Hours (Table) 10/20/22 10/20/22 10/20/22 Range/Units 12:30 16:23 18:17 POC Glucose (mg/dL) 217 H 120 H (70-110) mg/dL Urine Appearance Cloudy H (Clear) Urine Protein Trace H (Negative) Urine Nitrite Positive H (Negative) Ur Leukocyte Esterase Large H (Negative) Urine RBC 10 H (0-5) /hpf Urine WBC 13 H (0-5) /hpf Urine Bacteria Many H (None) /hpf Urine Mucus Few H (None) /hpf Urine Yeast (Budding) Many H (None) /hpf Microbiology - Last 24 Hours (Table) 10/20/22 18:17 Urine Culture - Preliminary Urine,Clean Catch 10/20/22 11:51 Stool Culture - Preliminary Stool
[2022-10-21 13:22] VITALS: BP 147/55; PULSE 55; RESP 16
[2022-10-21 13:23] VITALS: BMI 22.0
--- NOTE | 2022-10-21 13:39 | P.DS ---
Providers Date of admission: 10/13/22 20:23 Expected date of discharge: 10/21/22 (Discharge tomorrow [facility] home and rehab.) Attending physician: Issac Olivia Consults: 10/16/22 11:35 Consult Physician Routine Consulting Provider: Eron Belcher Consult Reason/Comments: medication adjustment Do you want consulting provider notified?: Yes 10/17/22 16:16 Consult Physician Routine Consulting Provider: Elise White Consult Reason/Comments: gastroenteritis Do you want consulting provider notified?: Yes Primary care physician: Issac Olivia Discharge note Date of service 10/21/[address] Mensah. Final diagnosis: #1 acute diarrhea associated with incontinent with large amount. #2 initially considered as gastroenteritis #3 development of nausea and vomiting associated with small bowel obstruction by plain x-ray #[address] Solano the surgeon, and her absence seen by Dr. Don. #[address] Solano on the return of her out of town. #6 new diagnosis of ileus as well as retention of the stool in the sigmoid and descending colon #7 underlying history positive gastric occult blood with the underlying history of Zarate esophagitis. #8 status post EGD on this admission I Dr. Solano positive for gastritis and Zarate esophagitis biopsy was obtained result not available #9 status post colonoscopy with [address] Solano biopsy results not available. At the time of discharge. #10 urine leukocytosis with budding yeast and bacteria waiting for culture results treatment with the result is available #11 peripheral arterial disease with a history of aortobifem bypass by Dr. Perkins. #12 pulmonary hypertension treated by Dr. Ruiz with tadafil #13 status post discharge from [facility] psychiat[facility] related to [facility] system with the diagnoses of bipolar #14 psychiatrist inpatient [facility] consulted and changed to Zyprexa to Cymbalta with the diagnosis only major depression. #15 underlying coronary artery disease atherosclerotic heart disease on beta marcellus by cardiology with bradycardia. #16 hypertension with hypertensive heart disease. #17 underlying rheumatoid arthritis and osteoarthritis treated by track laminating machine tender Dr. Janice archer with Enbrel subcutaneously. 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 #20 soup aureus diarrhea also highly consider #21 DT conditioning and need for further rehabilitation with generalized weakness Consulting physician: Dr. Solano and covered by Dr. Don initially. Initial presentation to the ER: With the uncontrolled diarrhea unable to control her anal sphincter resistant with dehydration with hypertension uncontrolled. Hospital course: Patient admitted to observation by the ER and patient develop small bowel obstruction and followed by ileus changed to regular admission with the resistant nausea and vomiting and diarrhea. Patient subsequently transferred the to acute care and consultation was requested from Dr. Solano she was out of town and subsequently covered by Dr. oDn and went on her return Dr. Solano seen the patient and did upper endoscopy and lower endoscopy and cleared with the presence of Zarate's esophagus as well as retention of the stools and the polyps. Medication has been adjusted. On discharge patient stable general condition Will be transferred to for conditioning as she was weakness and inability to walk. On discharge vital sign stable temperature 98.4 F oral heart rates 57 bpm regular sinus respiratory rate 18/m blood pressure 164/65 with a mean 98 and patient had history of low blood pressure her pulse ox 96%. The head was normocephalic and atraumatic and oropharynx denture upper and lower Neck was supple no JVD no thyromegaly no lymphadenopathy trachea midline. Chest is symmetrical chest was kyphoscoliosis and normal breath sounds with history of COPD in the past Heart regular sinus rhythm no chest pain no angina Abdomen positive bowel sounds status post colonoscopy currently no pain no tenderness. Extremities no edema positive pulses bilateral and ecchymosis of the legs old. Psychiatry currently stable Neurologically no lateralizing sign no CVA Patient stable general condition to be discharged to [facility] and rehab Time confused between dictation and patient 45 minutes. 50% discussion with the patient Plan - Discharge Summary New Discharge Prescriptions: New DULoxetine HCL [Cymbalta] 20 mg PO DAILY cap Ferrous Sulfate [Iron (65 MG Elemental)] 325 mg PO BID-W/MEALS tab Metoprolol Tartrate [Lopressor] 12.5 mg PO BID tab Atorvastatin [Lipitor] 10 mg PO HS tab amLODIPine [Norvasc] 5 mg PO DAILY tab Acetaminophen Tab [Tylenol] 650 mg PO Q6HR PRN tab PRN Reason: Mild Pain Or Fever > 100.5 lisinopriL [Zestril] 5 mg PO DAILY tab Continue Ranolazine [Ranolazine ER] 500 mg PO Q12HR Aspirin EC [Ecotrin Low Dose] 81 mg PO DAILY Discontinued Atorvastatin [Lipitor] 20 mg PO HS Metoprolol Tartrate [Lopressor] 12.5 mg PO DAILY lisinopriL [Zestril] 10 mg PO BID Methylphenidate HCl [Methylphenidate ER] 20 mg PO DAILY No Action Omeprazole 20 mg PO DAILY PRN PRN Reason: ACID REFLUX Etanercept [Enbrel] 50 mg SQ WE predniSONE 5 mg PO DAILY Potassium Chloride [Klor-Con 10 ER] 10 meq PO DAILY Furosemide [Lasix] 40 mg PO HS Cyanocobalamin [Vitamin B-12] 1,000 mcg PO DAILY tab Cholecalciferol [Vitamin D3 (25 Mcg = 1000 Iu)] 50 mcg PO DAILY tablet Levothyroxine Sodium [Synthroid] 75 mcg PO DAILY Loperamide [Imodium] 2 mg PO QID PRN PRN Reason: Diarrhea tadalafiL 10 mg PO DAILY OLANZapine [ZyPREXA] 2.5 mg PO BID Discharge Medication List Omeprazole 20 mg PO DAILY PRN 07/02/16 [History] Etanercept [Enbrel] 50 mg SQ WE 05/16/18 [History] predniSONE 5 mg PO DAILY 08/28/20 [History] Furosemide [Lasix] 40 mg PO HS 04/14/21 [History] Potassium Chloride [Klor-Con 10 ER] 10 meq PO DAILY 04/14/21 [History] Cholecalciferol [Vitamin D3 (25 Mcg = 1000 Iu)] 50 mcg PO DAILY tablet 04/15/21 [Rx] Cyanocobalamin [Vitamin B-12] 1,000 mcg PO DAILY tab 04/15/21 [Rx] Ranolazine [Ranolazine ER] 500 mg PO Q12HR 12/25/21 [History] Aspirin EC [Ecotrin Low Dose] 81 mg PO DAILY 09/17/22 [History] Levothyroxine Sodium [Synthroid] 75 mcg PO DAILY 09/17/22 [History] tadalafiL 10 mg PO DAILY 09/17/22 [History] Loperamide [Imodium] 2 mg PO QID PRN 10/11/22 [History] OLANZapine [ZyPREXA] 2.5 mg PO BID 10/11/22 [History] Acetaminophen Tab [Tylenol] 650 mg PO Q6HR PRN tab 10/21/22 [Rx] Atorvastatin [Lipitor] 10 mg PO HS tab 10/21/22 [Rx] DULoxetine HCL [Cymbalta] 20 mg PO DAILY cap 10/21/22 [Rx] Ferrous Sulfate [Iron (65 MG Elemental)] 325 mg PO BID-W/MEALS tab 10/21/22 [Rx] Metoprolol Tartrate [Lopressor] 12.5 mg PO BID tab 10/21/22 [Rx] amLODIPine [Norvasc] 5 mg PO DAILY tab 10/21/22 [Rx] lisinopriL [Zestril] 5 mg PO DAILY tab 10/21/22 [Rx] Follow up Appointment(s)/Referral(s): Issac Olivia MD [Primary Care Provider] - 1-2 days
[2022-10-21] MEDS ORDERED: PANTOPRAZOLE 40 MG TABLET PO PRN (14:37)
--- NOTE | 2022-10-22 00:18 | P.PN ---
Subjective Progress Note Date: 10/20/22 CHIEF COMPLAINT: Diarrhea HISTORY OF PRESENT ILLNESS: Patient status post EGD in regards to her anemia. She had colonoscopy with polyps. She feels well. No bleeding within colon found. Family is at bedside. PHYSICAL EXAM: VITAL SIGNS: Reviewed. CONSTITUTIONAL: Well developed and in no acute distress. Pleasant. EYES: Conjuctivae without sclera icterus. Extraocular movements grossly intact. HEAD, EARS, NOSE, THROAT: Moist buccal mucosa. Head is atraumatic, normocephalic. Hears conversational speech. No nasal drainage. RESPIRATORY: Non-labored respirations and equal bilateral excursions. CARDIOVASCULAR: Palpable 2+ radial pulses. ABDOMEN: No peritonitis. Nontender. MUSCULOSKELETAL: No gross deformity of the lower extremities noted. No clubbing. No cyanosis. SKIN: Good skin turgor. Well perfused. NEUROLOGIC: Cranial nerves II through XII grossly intact. No focal or lateralizing signs. PSYCH: Alert to self. ASSESSMENT: 1. Ileus. 2. Gastroenteritis 3. Paraesophageal hiatal hernia 4. Hyponatremia 5. Moderately severe diverticulosis 6. Zarate's esophagus 7. Paraesophageal hiatal hernia 8. Gastritis with bleeding 9. Colon polyps 10. Diverticulosis PLAN: 1. Recommend low fiber diet 2. Dietary restriction for diverticulosis reviewed. 3. Follow up as outpatient. 4. Stool cultures obtain and are pending. Objective - Vital Signs Vital signs: Vital Signs Temp 98.4 F 10/21/22 09:55 Pulse 55 L 10/21/22 13:10 Resp 16 10/21/22 13:10 BP 147/55 10/21/22 13:10 Pulse Ox 97 10/21/22 13:10 FiO2 Intake & Output 10/21/22 10/21/22 10/22/22 06:59 18:59 06:59 Intake Total 485 Balance 485 Weight 49.442 kg Intake: Oral 485 Other: Voiding Method Diaper Diaper Incontinent Incontinent # Voids 2 - Labs CBC & Chem 7: 10/20/22 08:17 10/20/22 08:17 Labs: Microbiology - Last 24 Hours (Table) 10/20/22 18:17 Urine Culture - Preliminary Urine,Clean Catch 10/20/22 11:51 Stool Culture - Preliminary Stool
--- NOTE | 2022-10-22 21:19 | P.PCN ---
Date of Procedure: 10/20/22 Description of Procedure: PREOPERATIVE DIAGNOSIS: Anemia Diarrhea POSTOPERATIVE DIAGNOSIS: Anemia Diarrhea Tubular adenoma ascending colon Tubular adenoma descending colon Sigmoid diverticulosis, moderate to severe Internal hemorrhoids, grade 2 Colitis GI bleeding OPERATION: Colonoscopy to the ileocecal valve and appendiceal orifice, cecum Colonoscopy with hot snare polypectomy Colonoscopy with cold forceps biopsy with stool cultures obtained SURGEON: Elise White MD. ANESTHESIA: MAC. INDICATIONS: The patient is an 87-year-old female who has diarrhea, anemia, change in bowel habits and GI bleed. Benefits and risks were described and informed consent was obtained. DESCRIPTION OF PROCEDURE: The patient had undergone Sutab prep. The patient had been brought into the operating room and laid in the left lateral decubitus position. After adequate intravenous sedation, the rectum was examined with 2% lidocaine jelly. The prostate was unremarkable. External hemorrhoids were encountered. The rectal tone was within normal limits. No lesions were palpated in the rectal vault. An Olympus colonoscope was advanced until the cecum, ileocecal valve and appendiceal orifice were clearly viewed. The prep was fair. Sigmoid diverticulosis, moderate to severe was encountered. Colonic polyps were found and removed. Biopsies were obtained for focal colitis was found. Retroflexion of the scope demonstrated grade 2 internal hemorrhoids without active bleeding or inflammation. The colon was desufflated. The patient had tolerated the procedure well. Withdrawal time was over 6 minutes. FINDINGS: Aronchick preparation quality scale 3 (1-5) Internal hemorrhoids, grade 2 External hemorrhoids, grade 2. No arteriovenous malformations. Sigmoid diverticulosis, moderate to severe Removal of 2 polyps: - Snare polypectomy ascending colon, 5 mm tubulovillous adenoma - Snare polypectomy descending colon, 8 mm flat villous adenoma Random cold forceps biopsies for colitis Stool cultures obtained RECOMMENDATIONS: 1. Repeat colonoscopy 3 years, 2025 2. Recommend low fiber diet Plan - Discharge Summary New Discharge Prescriptions: New DULoxetine HCL [Cymbalta] 20 mg PO DAILY cap Ferrous Sulfate [Iron (65 MG Elemental)] 325 mg PO BID-W/MEALS tab Metoprolol Tartrate [Lopressor] 12.5 mg PO BID tab Atorvastatin [Lipitor] 10 mg PO HS tab amLODIPine [Norvasc] 5 mg PO DAILY tab Acetaminophen Tab [Tylenol] 650 mg PO Q6HR PRN tab PRN Reason: Mild Pain Or Fever > 100.5 lisinopriL [Zestril] 5 mg PO DAILY tab Omeprazole 40 mg PO DAILY #30 cap Continue Ranolazine [Ranolazine ER] 500 mg PO Q12HR Aspirin EC [Ecotrin Low Dose] 81 mg PO DAILY Discontinued Atorvastatin [Lipitor] 20 mg PO HS Metoprolol Tartrate [Lopressor] 12.5 mg PO DAILY lisinopriL [Zestril] 10 mg PO BID Methylphenidate HCl [Methylphenidate ER] 20 mg PO DAILY No Action Omeprazole 20 mg PO DAILY PRN PRN Reason: ACID REFLUX Etanercept [Enbrel] 50 mg SQ WE predniSONE 5 mg PO DAILY Potassium Chloride [Klor-Con 10 ER] 10 meq PO DAILY Furosemide [Lasix] 40 mg PO HS Cyanocobalamin [Vitamin B-12] 1,000 mcg PO DAILY tab Cholecalciferol [Vitamin D3 (25 Mcg = 1000 Iu)] 50 mcg PO DAILY tablet Levothyroxine Sodium [Synthroid] 75 mcg PO DAILY Loperamide [Imodium] 2 mg PO QID PRN PRN Reason: Diarrhea tadalafiL 10 mg PO DAILY Discharge Medication List Omeprazole 20 mg PO DAILY PRN 07/02/16 [History] Etanercept [Enbrel] 50 mg SQ WE 05/16/18 [History] predniSONE 5 mg PO DAILY 08/28/20 [History] Furosemide [Lasix] 40 mg PO HS 04/14/21 [History] Potassium Chloride [Klor-Con 10 ER] 10 meq PO DAILY 04/14/21 [History] Cholecalciferol [Vitamin D3 (25 Mcg = 1000 Iu)] 50 mcg PO DAILY tablet 04/15/21 [Rx] Cyanocobalamin [Vitamin B-12] 1,000 mcg PO DAILY tab 04/15/21 [Rx] Ranolazine [Ranolazine ER] 500 mg PO Q12HR 12/25/21 [History] Aspirin EC [Ecotrin Low Dose] 81 mg PO DAILY 09/17/22 [History] Levothyroxine Sodium [Synthroid] 75 mcg PO DAILY 09/17/22 [History] tadalafiL 10 mg PO DAILY 09/17/22 [History] Loperamide [Imodium] 2 mg PO QID PRN 10/11/22 [History] Acetaminophen Tab [Tylenol] 650 mg PO Q6HR PRN tab 10/21/22 [Rx] Atorvastatin [Lipitor] 10 mg PO HS tab 10/21/22 [Rx] DULoxetine HCL [Cymbalta] 20 mg PO DAILY cap 10/21/22 [Rx] Ferrous Sulfate [Iron (65 MG Elemental)] 325 mg PO BID-W/MEALS tab 10/21/22 [Rx] Metoprolol Tartrate [Lopressor] 12.5 mg PO BID tab 10/21/22 [Rx] Omeprazole 40 mg PO DAILY #30 cap 10/21/22 [Rx] amLODIPine [Norvasc] 5 mg PO DAILY tab 10/21/22 [Rx] lisinopriL [Zestril] 5 mg PO DAILY tab 10/21/22 [Rx] Follow up Appointment(s)/Referral(s): Elise White MD [STAFF PHYSICIAN] - 11/16/22 2:00 pm Issac Olivia MD [Primary Care Provider] - 1-2 days Discharge Disposition: TRANSFER TO SNF/ECF
[2022-10-27] MEDS ORDERED: NON FORMULARY DRUG (Etanercept [Enbrel] 50 MG/ML Syringe) SQ SCH (09:00)
== END 2022-10-21 15:40 | DRG 378 ==
LOC: EC 14:13 → 6NMEDSUR 18:18 → OBSVTOIN 10-13 20:23 → 3SCARD 10-13 21:36
PROVIDERS: ADMIT Internal Medicine; ATTEND Internal Medicine
PROC: 0DB38ZX Excision of Lower Esophagus, Via Natural or Artificial Opening Endoscopic, Diagnostic (ICD-10-PCS; principal; 2022-10-18 07:55)
PROC: 0DBM8ZX Excision of Descending Colon, Via Natural or Artificial Opening Endoscopic, Diagnostic (ICD-10-PCS; 2022-10-20)
PROC: 0DBK8ZZ Excision of Ascending Colon, Via Natural or Artificial Opening Endoscopic (ICD-10-PCS; 2022-10-20)
PROC: 0DBM8ZZ Excision of Descending Colon, Via Natural or Artificial Opening Endoscopic (ICD-10-PCS; 2022-10-20)
PROC: 0DBK8ZX Excision of Ascending Colon, Via Natural or Artificial Opening Endoscopic, Diagnostic (ICD-10-PCS; 2022-10-20 12:00)
DX: K29.01 Acute gastritis with bleeding (principal); E87.1 Hypo-osmolality and hyponatremia; N17.9 Acute kidney failure, unspecified; F05 Delirium due to known physiological condition; K56.7 Ileus, unspecified; M48.56XA Collapsed vertebra, not elsewhere classified, lumbar region, initial encounter for fracture; F03.93 Unspecified dementia, unspecified severity, with mood disturbance; I27.20 Pulmonary hypertension, unspecified; D69.6 Thrombocytopenia, unspecified; E11.649 Type 2 diabetes mellitus with hypoglycemia without coma; K22.11 Ulcer of esophagus with bleeding; K57.31 Diverticulosis of large intestine without perforation or abscess with bleeding; D63.8 Anemia in other chronic diseases classified elsewhere; E11.22 Type 2 diabetes mellitus with diabetic chronic kidney disease; E11.43 Type 2 diabetes mellitus with diabetic autonomic (poly)neuropathy; I95.9 Hypotension, unspecified; I13.10 Hypertensive heart and chronic kidney disease without heart failure, with stage 1 through stage 4 chronic kidney disease, or unspecified chronic kidney disease; E11.51 Type 2 diabetes mellitus with diabetic peripheral angiopathy without gangrene; E11.42 Type 2 diabetes mellitus with diabetic polyneuropathy; M06.9 Rheumatoid arthritis, unspecified; N18.30 Chronic kidney disease, stage 3 unspecified; F31.9 Bipolar disorder, unspecified; I35.9 Nonrheumatic aortic valve disorder, unspecified; D50.9 Iron deficiency anemia, unspecified; J44.9 Chronic obstructive pulmonary disease, unspecified; E86.0 Dehydration; K44.9 Diaphragmatic hernia without obstruction or gangrene; D12.2 Benign neoplasm of ascending colon; D12.4 Benign neoplasm of descending colon; E78.5 Hyperlipidemia, unspecified; K64.4 Residual hemorrhoidal skin tags; K64.8 Other hemorrhoids; R15.9 Full incontinence of feces; G89.29 Other chronic pain; K43.9 Ventral hernia without obstruction or gangrene; I25.10 Atherosclerotic heart disease of native coronary artery without angina pectoris; M41.9 Scoliosis, unspecified; M48.00 Spinal stenosis, site unspecified; I83.90 Asymptomatic varicose veins of unspecified lower extremity; M62.50 Muscle wasting and atrophy, not elsewhere classified, unspecified site; K59.00 Constipation, unspecified; R00.1 Bradycardia, unspecified; K52.9 Noninfective gastroenteritis and colitis, unspecified; M15.9 Polyosteoarthritis, unspecified; M43.17 Spondylolisthesis, lumbosacral region; R29.6 Repeated falls; Z20.822 Contact with and (suspected) exposure to COVID-19; Z87.891 Personal history of nicotine dependence; Z90.11 Acquired absence of right breast and nipple; Z86.79 Personal history of other diseases of the circulatory system; Z85.3 Personal history of malignant neoplasm of breast; Z88.0 Allergy status to penicillin; Z91.048 Other nonmedicinal substance allergy status; Z79.899 Other long term (current) drug therapy; Z79.890 Hormone replacement therapy; Z79.82 Long term (current) use of aspirin; Z88.5 Allergy status to narcotic agent; Z91.040 Latex allergy status; Z79.52 Long term (current) use of systemic steroids; Z91.81 History of falling
CPT/HCPCS: 36410; 36415; 43239; 45380; 45385; 71045; 74019; 74176; 76937; 80048; 80053; 80061; 81001; 81003; 82150; 82271; 82272; 82306; 82330; 82652; 83036; 83540; 83550; 83630; 83690; 83735; 83993; 84145; 84439; 84443; 84484; 85025; 85027; 85652; 86140; 87040; 87045; 87046; 87077; 87086; 87186; 87635; 87636; 88305; 96361; 96374; 96375; 99285

== ENCOUNTER 2022-11-26 13:57 | Observation (INO) | payer MEDICARE ==
[2022-11-26 14:12] LABS: Glucose,Whole Blood 143 mg/dL (70-110)
[2022-11-26] MEDS ORDERED: SODIUM CHLORIDE 0.9% 500 ML 500 ML IV STA (14:46)
[2022-11-26 15:02] LABS: Anisocytosis Slight; Basophils % (A) 0 %; Eosinophils # (A) 0.1 k/uL (0-0.7); Eosinophils % (A) 2 %; HCT 32.8 % (34.0-46.0); Lymphocytes # (A) 0.9 k/uL (1.0-4.8); Lymphocytes % (A) 12 %; MCH 33.4 pg (25.0-35.0); MCHC 33.5 g/dL (31.0-37.0); MCV 99.6 fL (80.0-100.0); Macrocytosis Slight; Mean Platelet Volume 8.5; Monocytes # (A) 0.3 k/uL (0-1.0); Monocytes % (A) 5 %; Neutrophils # (A) 5.9 k/uL (1.3-7.7); Neutrophils % (A) 81 %; Platelet Count 122 k/uL (150-450); RBC 3.29 m/uL (3.80-5.40); RDW 16.4 % (11.5-15.5); WBC 7.3 k/uL (3.8-10.6)
--- NOTE | 2022-11-26 15:02 | ED ---
General Adult HPI - General Chief complaint: Syncope Stated complaint: Syncope Time Seen by Provider: 11/26/22 14:21 Source: patient, family (), EMS, RN notes reviewed, old records reviewed Mode of arrival: EMS Limitations: altered mental status - History of Present Illness Initial comments: 87-year-old female presents to the emergency room via ambulance with her . states they were sitting outside enjoying the sun decided to go to the store. When she stood up she said at the time went to pass out and she fainted. He tried to keep her from falling backward and fell on top of her. She hit her head on the concrete sustaining a laceration. Patient denies any other pain or discomfort at this time other than a headache. She does not take any blood thinners. She does have history of diabetes, GERD, hypertension and rheumatoid arthritis and memory loss. -: hour(s) Location: head Radiation: non-radiation Severity scale (1-10): 4 Quality: aching Consistency: constant Worsens with: movement Treatments Prior to Arrival: other (c collar) - Related Data Home Medications Medication Instructions Recorded Confirmed Omeprazole 20 mg PO DAILY PRN 07/02/16 11/26/22 Etanercept [Enbrel] 50 mg SQ WE 05/16/18 11/26/22 predniSONE 5 mg PO DAILY 08/28/20 11/26/22 Furosemide [Lasix] 40 mg PO DAILY 04/14/21 11/26/22 Potassium Chloride [Klor-Con 10 ER] 10 meq PO DAILY@1700 04/14/21 11/26/22 Ranolazine [Ranolazine ER] 500 mg PO Q12HR 12/25/21 11/26/22 Aspirin EC [Ecotrin Low Dose] 81 mg PO DAILY 09/17/22 11/26/22 Levothyroxine Sodium [Synthroid] 75 mcg PO DAILY 09/17/22 11/26/22 tadalafiL 10 mg PO DAILY 09/17/22 11/26/22 Loperamide [Imodium] 2 mg PO QID PRN 10/11/22 11/26/22 Cholecalciferol [Vitamin D3 (25 50 mcg PO DAILY@1200 11/26/22 11/26/22 Mcg = 1000 Iu)] Cyanocobalamin [Vitamin B-12] 1,000 mcg PO DAILY@1200 11/26/22 11/26/22 Metoprolol Tartrate [Lopressor] 12.5 mg PO BID 11/26/22 11/26/22 lisinopriL [Zestril] 5 mg PO DAILY 11/26/22 11/26/22 Previous Rx's Medication Instructions Recorded Acetaminophen Tab [Tylenol] 650 mg PO Q6HR PRN tab 10/21/22 Atorvastatin [Lipitor] 10 mg PO HS tab 10/21/22 DULoxetine HCL [Cymbalta] 20 mg PO DAILY cap 10/21/22 Ferrous Sulfate [Iron (65 MG 325 mg PO BID-W/MEALS tab 10/21/22 Elemental)] Omeprazole 40 mg PO DAILY #30 cap 10/21/22 amLODIPine [Norvasc] 5 mg PO DAILY tab 10/21/22 Allergies Allergy/AdvReac Type Severity Reaction Status Date / Time adhesive tape Allergy Rash/Hives Verified 11/26/22 17:10 Penicillins Allergy Rash/Hives Verified 11/26/22 17:10 Review of Systems ROS Statement: Those systems with pertinent positive or pertinent negative responses have been documented in the HPI. ROS Other: All systems not noted in ROS Statement are negative. Past Medical History Past Medical History: Cancer, Diabetes Mellitus, GERD/Reflux, Hyperlipidemia, Hypertension, Memory Impairment, Rheumatoid Arthritis (RA), Thyroid Disorder Additional Past Medical History / Comment(s): States age related memory impairment. 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 Hx right breast cancer had sx and radiaiton tx,, aortic aneurysm(sx done). per [facility] "leaky heart valve" History of Any Multi-Drug Resistant Organisms: None Reported Past Surgical History: Appendectomy, Back Surgery, Breast Surgery, Heart Catheterization, Tonsillectomy, Tubal Ligation Additional Past Surgical History / Comment(s): Surgery for arortic aneurysm, surgery on toes of bilateral feet, ablation done on back X2, had uvula removed.lt carpal tunnel release, beverly cataracts, beverly carotid endarterectomy, par tial rt mastectomy. colonoscopy/egd/esophgeal dilations, laminectomy/past pain clinic procedures, bunionectomy beverly feet. Past Anesthesia/Blood Transfusion Reactions: No Reported Reaction Past Psychological History: No Psychological Hx Reported Smoking Status: Former smoker Past Alcohol Use History: Rare Past Drug Use History: None Reported - Past Family History Sister(s) Family Medical History: Cancer Additional Family Medical History / Comment(s): Aneurysm. States 3 of her sisters had cancer. Father Additional Family Medical History / Comment(s): Anerysym Mother Additional Family Medical History / Comment(s): Aneurysm Brother(s) Additional Family Medical History / Comment(s): Aneurysm General Exam Limitations: altered mental status General appearance: alert, in no apparent distress Head exam: Present: other (Laceration to the occiput) Eye exam: Present: normal appearance, PERRL, EOMI. Absent: scleral icterus, conjunctival injection, periorbital swelling, periorbital tenderness ENT exam: Present: mucous membranes moist Neck exam: Absent: tenderness, meningismus Respiratory exam: Absent: respiratory distress, accessory muscle use Cardiovascular Exam: Present: bradycardia GI/Abdominal exam: Present: soft. Absent: distended, rigid Extremities exam: Present: normal capillary refill, other (Bilateral hyperpigmentation lower extremities). Absent: pedal edema Neurological exam: Present: alert, CN II-XII intact Psychiatric exam: Present: normal affect, normal mood Skin exam: Present: warm, dry, normal color. Absent: cyanosis, diaphoretic, petechiae, pallor Course Vital Signs 11/26/22 11/26/22 11/26/22 14:00 14:32 15:32 Temperature 98.6 F Pulse Rate 56 L 57 L 63 Respiratory 20 12 20 Rate Blood Pressure 116/76 147/76 O2 Sat by Pulse 98 98 Oximetry 11/26/22 11/26/22 11/26/22 15:39 16:00 17:00 Temperature 98.3 F Pulse Rate 63 65 62 Respiratory 20 15 21 Rate Blood Pressure 149/63 149/63 152/59 O2 Sat by Pulse 100 97 98 Oximetry 11/26/22 18:00 Temperature Pulse Rate 66 Respiratory 12 Rate Blood Pressure 131/57 O2 Sat by Pulse 99 Oximetry EKG Findings - EKG Comments: EKG Findings:: EKG interpreted by me shows sinus bradycardia with ventricular rate of 55, MT interval 0.178, QRS 0.88, QTc 0.409, no significant change compared to old 10/18/2022. Procedures - Laceration Laceration #1 Indication: laceration Site: scalp Size (cm): 2 Description: linear Anesthetic Used: lidocaine 1% Anesthesia Technique: local infiltration Pre-repair: irrigated extensively Type of Sutures: other (sophia) Number of Sutures: 3 (sophia) Medical Decision Making - Medical Decision Making Was pt. sent in by a medical professional or institution (, PA, MACHINE VENEER REPAIRER, urgent care, hospital, or alf...) When possible be specific @ -No Did you speak to anyone other than the patient for history (EMS, parent, family, police, friend...)? What history was obtained from this source @ -Patient's explaining the event and fall today along with medical history Did you review nursing and triage notes (agree or disagree)? Why? @ -I reviewed and agree with nursing and triage notes Were old charts reviewed (outside hosp., previous admission, EMS record, old EKG, old radiological studies, urgent care reports/EKG's, alf records)? Report findings @ -Old EKG 10/18/2022 Differential Diagnosis (chest pain, altered mental status, abdominal pain women, abdominal pain men, vaginal bleeding, weakness, fever, dyspnea, syncope, headache, dizziness, GI bleed, back pain, seizure, CVA, palpatations, mental health, musculoskeletal)? @ -Differential Syncope: Valvular disease, hypertrophic cardiomyopathy, pulmonary embolism, tamponade, tachycardia, bradycardia, OR, hypovolemia, hemorrhage, dissection, anemia, intracranial hemorrhage, seizure, hypoglycemia, carbon monoxide poisoning, this is not meant to be an all-inclusive list. EKG interpreted by me (3pts min.). @ -yes EKG interpreted by me shows sinus bradycardia with ventricular rate of 55, MT interval 0.178, QRS 0.88, QTc 0.409, no significant change compared to old 10/18/2022. X-rays interpreted by me (1pt min.). @ -Chest x-ray interpreted by me shows evidence of scoliosis, no tracheal deviation or focal consolidation. CT interpreted by me (1pt min.). @ -CT of the brain and C-spine was performed. Interpreted by showing no evidence of intracranial bleed or skull fracture. U/S interpreted by me (1pt. min.). @ -None done What testing was considered but not performed or refused? (CT, X-rays, U/S, labs)? Why? @ -None What meds were considered but not given or refused? Why? @ -None Did you discuss the management of the patient with other professionals (professionals i.e. Dr., PA, MACHINE VENEER REPAIRER, lab, RT, psych nurse, transition social worker, admiralty lawyer, teacher, policy officer, ed case manager)? Give summary @ -No Was smoking cessation discussed for >3mins.? @ -No Was critical care preformed (if so, how long)? @ -No Were there social determinants of health that impacted care today? How? (H omelessness, low income, unemployed, alcoholism, drug addiction, transportation, low edu. Level, literacy, decrease access to med. care, penitentiary, rehab)? @ -No Was there de-escalation of care discussed even if they declined (Discuss DNR or withdrawal of care, Hospice)? DNR status @ -No What co-morbidities impacted this encounter? (DM, HTN, Smoking, COPD, CAD, Cancer, CVA, ARF, Chemo, Hep., AIDS, mental health diagnosis, sleep apnea, morbid obesity)? @ -Patient has a history of diabetes, GERD, hyperlipidemia, hypertension, memory impairment, rheumatoid arthritis, breast cancer, aortic aneurysm surgery. Was patient admitted / discharged? Hospital course, mention meds given and route , prescriptions, significant lab abnormalities, going to OR and other pertinent info. @ -Admitted. Patients states patient stood from a sitting position stating she felt faint and then had a syncopal episode falling backward and hitting her head on the concrete. Patient's states that he did fall across the top of her trying to help her from falling. She did sustain a 2 cm laceration left parietal scalp. She denies any other pain or discomfort. No evidence of leukocytosis. Hemoglobin and hematocrit are stable. Electrolytes show blood glucose of 135. BUN of 36. Patient was given IV fluids. Troponin -0.012. EKG interpreted by me shows sinus bradycardia with ventricular rate of 55, MT interval 0.178, QRS 0.88, QTc 0.409, no significant change com pared to old 10/18/2022. Due to the syncope and head injury along with laceration a CT of the brain and C-spine was performed. Interpreted by showing no evidence of intracranial bleed or skull fracture. Radiologist interpretation mild hydrocephalus unchanged from April 2021, possibly secondary to central cerebral atrophy. Left parietal scalp hematoma without intracranial abnormality seen. Mild to moderate multilevel spondylitic changes of cervical spine. A dilated and debris-filled thoracic esophagus partially seen correlate for lower esophageal obstruction or severe gastroesophageal reflux disease. Radiologist's impression chronic changes without new acute pulmonary process. Patient is awake and alert. Scalp laceration was cleansed copiously with saline and closed with 3 sophia. I did speak with Dr Olivia was agreeable to placing patient in observation with consults to cardiology and neurology for her syncopal episode. Attending is Dr. Lagunas Undiagnosed new problem with uncertain prognosis? @ -No Drug Therapy requiring intensive monitoring for toxicity (Heparin, Nitro, Insulin, Cardizem)? @ -No Were any procedures done? @ -Laceration repair Diagnosis/symptom? @ -Syncope, scalp laceration, weakness, head injury Acute, or Chronic, or Acute on Chronic? @ -Acute Uncomplicated (without systemic symptoms) or Complicated (systemic symptoms)? @ -Complicated Side effects of treatment? @ -No Exacerbation, Progression, or Severe Exacerbation? @ -No Poses a threat to life or bodily function? How? (Chest pain, USA, OR, pneumonia, PE, COPD, DKA, ARF, appy, cholecystitis, CVA, Diverticulitis, Homicidal, Suicidal, threat to staff... and all critical care pts) @ -No - Lab Data Result diagrams: 11/26/22 14:48 11/26/22 14:48 Lab Results 11/26/22 11/26/22 11/26/22 Range/Units 14:11 14:48 14:48 WBC 7.3 (3.8-10.6) k/uL RBC 3.29 L (3.80-5.40) m/uL Hgb 11.0 L (11.4-16.0) gm/dL Hct 32.8 L (34.0-46.0) % MCV 99.6 (80.0-100.0) fL MCH 33.4 (25.0-35.0) pg MCHC 33.5 (31.0-37.0) g/dL RDW 16.4 H (11.5-15.5) % Plt Count 122 L (150-450) k/uL MPV 8.5 Neutrophils % 81 % Lymphocytes % 12 % Monocytes % 5 % Eosinophils % 2 % Basophils % 0 % Neutrophils # 5.9 (1.3-7.7) k/uL Lymphocytes # 0.9 L (1.0-4.8) k/uL Monocytes # 0.3 (0-1.0) k/uL Eosinophils # 0.1 (0-0.7) k/uL Basophils # 0.0 (0-0.2) k/uL Anisocytosis Slight Macrocytosis Slight PT 10.6 (9.0-12.0) sec INR 1.0 (<1.2) APTT 21.2 L (22.0-30.0) sec Sodium (137-145) mmol/L Potassium (3.5-5.1) mmol/L Chloride (98-107) mmol/L Carbon Dioxide (22-30) mmol/L Anion Gap mmol/L BUN (7-17) mg/dL Creatinine (0.52-1.04) mg/dL Est GFR (CKD-EPI)AfAm (>60 ml/min/1.73 sqM) Est GFR (CKD-EPI)NonAf (>60 ml/min/1.73 sqM) Glucose (74-99) mg/dL POC Glucose (mg/dL) 143 H (70-110) mg/dL POC Glu Home Health Speech Therapist ID Delmi, See Calcium (8.4-10.2) mg/dL Magnesium (1.6-2.3) mg/dL Total Bilirubin (0.2-1.3) mg/dL AST (14-36) U/L ALT (4-34) U/L Alkaline Phosphatase (38-126) U/L Troponin I (0.000-0.034) ng/mL Total Protein (6.3-8.2) g/dL Albumin (3.5-5.0) g/dL 11/26/22 11/26/22 Range/Units 14:48 14:48 WBC (3.8-10.6) k/uL RBC (3.80-5.40) m/uL Hgb (11.4-16.0) gm/dL Hct (34.0-46.0) % MCV (80.0-100.0) fL MCH (25.0-35.0) pg MCHC (31.0-37.0) g/dL RDW (11.5-15.5) % Plt Count (150-450) k/uL MPV Neutrophils % % Lymphocytes % % Monocytes % % Eosinophils % % Basophils % % Neutrophils # (1.3-7.7) k/uL Lymphocytes # (1.0-4.8) k/uL Monocytes # (0-1.0) k/uL Eosinophils # (0-0.7) k/uL Basophils # (0-0.2) k/uL Anisocytosis Macrocytosis PT (9.0-12.0) sec INR (<1.2) APTT (22.0-30.0) sec Sodium 134 L (137-145) mmol/L Potassium 4.1 (3.5-5.1) mmol/L Chloride 100 (98-107) mmol/L Carbon Dioxide 26 (22-30) mmol/L Anion Gap 8 mmol/L BUN 36 H (7-17) mg/dL Creatinine 1.03 (0.52-1.04) mg/dL Est GFR (CKD-EPI)AfAm 57 (>60 ml/min/1.73 sqM) Est GFR (CKD-EPI)NonAf 49 (>60 ml/min/1.73 sqM) Glucose 135 H (74-99) mg/dL POC Glucose (mg/dL) (70-110) mg/dL POC Glu Home Health Speech Therapist ID Calcium 9.0 (8.4-10.2) mg/dL Magnesium 2.0 (1.6-2.3) mg/dL Total Bilirubin 0.7 (0.2-1.3) mg/dL AST 17 (14-36) U/L ALT 14 (4-34) U/L Alkaline Phosphatase 50 (38-126) U/L Troponin I <0.012 (0.000-0.034) ng/mL Total Protein 6.0 L (6.3-8.2) g/dL Albumin 3.5 (3.5-5.0) g/dL Disposition Clinical Impression: Syncope and collapse, Head injury, Laceration Disposition: ADMITTED IP TO THIS HOSP Decision Date: 11/26/22
[2022-11-26 15:22] LABS: Albumin 3.5 g/dL (3.5-5.0); Potassium 4.1 mmol/L (3.5-5.1); Total Bilirubin 0.7 mg/dL (0.2-1.3)
--- NOTE | 2022-11-26 15:28 | CT ---
EXAMINATION TYPE: CT brain maria luisa drake con DATE OF EXAM: 11/26/2022 COMPARISON: 04/15/2021 HISTORY: 87-year-old female syncope, pain after Fall. CT DLP: 1319.8 mGycm Automated exposure control for dose reduction was used. Technique: Examination of the head was done in axial plane without intravenous contrast. Coronal and sagittal reconstructions performed. CT of the cervical spine was obtained in axial plane without intravenous injection of contrast mater ial. Coronal and sagittal reformatted images were obtained from the axial views for evaluation of f ractures, spinal alignment and canal. FINDINGS: Head: There is no evidence of acute intracranial hemorrhage, acute ischemic changes, mass, mass-effect, or extra-axial fluid collection. There is no effacement of cerebral sulci or basal subarachnoid cister ns. There is no midline shift. Sutton-white matter distinction is preserved. There is a left parietal scalp hematoma. Is no underlying calvarial fracture. Mild generalized supratentorial volume loss. There is mild hydrocephalus, Hernandez ratio calculated at 0 .36, unchanged from 2020. Moderate to severe confluent white matter hypodensities in posterior hemisp heres. Atherosclerotic calcifications bilateral carotid siphons. Rightward nasal septal deviation. Paranasal sinuses and mastoid air cells are well pneumatized. Orbit s and globes are intact. Cervical spine: Esophagus appears mildly distended with ingested mottled debris. Moderate prostatic calcifications th roughout the visualized aortic arch. No craniocervical junction abnormality, predental space widening, or prevertebral soft tissue swellin g. Degenerative change of the C1 dens articulation. No acute fracture seen of the cervical spine. Mild to moderate multilevel degenerative disc disease. Multilevel hypertrophic facet and uncovertebral joint arthropathy is present. Degenerative grade 1 anterolisthesis C4-C5, C5-C6, C6-C7, C7-T1. Mild narrowing of the spinal canal suggested that C6/C7 secondary to posterior disc bulge. No high-gr gregoria canal compromise identified by CT. Variable mild to moderate neuroforaminal narrowing throughout. Sagittal and coronal reformatted images confirm above findings. COMBINED IMPRESSION: 1. Mild hydrocephalus remains unchanged from 04/15/2021, possibly secondary to central cerebral atrop hy. Correlate to exclude a component of NPH. 2. Confluent burden of chronic small vessel ischemic disease. There is a left parietal scalp hematoma but without any acute intracranial abnormality seen. 3. Mild to moderate multilevel spondylotic change of the cervical spine. Degenerative grade 1 spondyl olisthesis C4-T1 levels. No acute fracture seen of the cervical spine. 4. NOTE A DILATED AND DEBRIS-FILLED THORACIC ESOPHAGUS PARTIALLY SEEN. CORRELATE TO EXCLUDE A LOWER E SOPHAGEAL OBSTRUCTION OR SEVERE GASTROESOPHAGEAL REFLUX DISEASE.
[2022-11-26 15:35] LABS: Prothrombin Time 10.6 sec (9.0-12.0)
[2022-11-26 15:43] LABS: Partial Thromboplastin Time 21.2 sec (22.0-30.0)
--- NOTE | 2022-11-26 16:01 | XR ---
EXAMINATION TYPE: XR chest 2V DATE OF EXAM: 11/26/2022 COMPARISON: Chest x-ray October 14, 2022 HISTORY: Syncope and weakness. TECHNIQUE: Frontal and lateral views of the chest are obtained. FINDINGS: There is chronic parenchymal change without suspicious new focal air space opacity, pleura l effusion, or pneumothorax seen. The cardiac silhouette size is stable and upper limits of normal w ith atherosclerotic thoracic aorta. The osseous structures are demineralized. Underlying scoliosis is redemonstrated. There is fracture deformity of left proximal humerus redemonstrated. Surgical clip s overlie the right lower thorax similar to prior. IMPRESSION: Chronic changes without new acute pulmonary process.
[2022-11-26] MEDS ORDERED: LIDOCAINE 1% INJ 10MG/ML (30 ML VIAL-PF) SQ ONE (16:26)
[2022-11-26] MEDS: SODIUM CHLORIDE 0.9% 1,000 ML IV SCH (16:38)
[2022-11-26] MEDS ORDERED: ACETAMINOPHEN TAB 325 MG TAB PO PRN (17:03)
[2022-11-26] MEDS ORDERED: NALOXONE 0.4 MG/ML 1 ML VIAL IV PRN (17:03)
[2022-11-26] MEDS ORDERED: PANTOPRAZOLE 40 MG TABLET PO PRN (18:05)
[2022-11-26] MEDS ORDERED: LOPERAMIDE 2 MG CAP PO PRN (18:05)
[2022-11-26 20:09] LABS: Glucose,Whole Blood 145 mg/dL (70-110)
[2022-11-26] MEDS: METOPROLOL TARTRATE 12.5 MG TAB PO SCH (21:03)
[2022-11-26] MEDS: ACETAMINOPHEN TAB 325 MG TAB PO PRN (21:03)
[2022-11-26] MEDS: RANOLAZINE 500 MG TAB.ER.12H PO SCH (21:03)
[2022-11-26] MEDS: ATORVASTATIN 10 MG TAB PO SCH (21:03)
[2022-11-26 21:44] LABS: T4, Free (Free Thyroxine) 1.08 ng/dL (0.78-2.19)
[2022-11-26] MEDS ORDERED: NAPROXEN 250 MG TAB PO PRN (21:51)
[2022-11-27 00:41] LABS: Appearance,Urine Clear (Clear); Bilirubin,Urine Negative (Negative); Blood,Urine Negative (Negative); Color,Urine Yellow; Glucose,Urine (UA) Negative (Negative); Ketones,Urine Negative (Negative); Leukocyte Esterase,Urine Negative (Negative); Nitrite,Urine Negative (Negative); Protein,Urine Negative (Negative); Specific Gravity,Urine 1.011 (1.001-1.035); Urobilinogen,Urine <2.0 mg/dL (<2.0)
--- NOTE | 2022-11-27 03:18 | HP ---
HISTORY AND PHYSICAL ATTENDING PHYSICIAN: Dr. Issac Olivia. The patient was seen and evaluated in the ER, exam room #17 and her at bedside. CHIEF COMPLAINT: Syncope at home. HISTORY OF PRESENT ILLNESS: The patient had an episode of felt fainting after she was outside home in the sun, sitting on the chair with her and subsequently they decided to go to eat outside and she had at that time tried to stand up and walk, suddenly she felt fainting and she told her that I am going to faint and he besides her tried to hold her and at that time she fell down on the cement with hitting her head on the cement, it caused left-sided scalp bleeding and he also fell on her. He is able to get himself up and able to call his son Edgar as well as able to call the ambulance with the bleeding present all over the area that the incident happened in front of the home and brought her to the emergency room at [facility] and at that time, as she presented to the ER, she hit on the left side of the scalp on the occipital area and they did stapling of the scalp with the 3 sophia and with the underlying bleeding laceration, they did find that she had headache at the same time and she has not taken any blood thinner at home and they did the CT scan of the brain and the skull and the neck. They did also a chest x-ray and was seen by the nurse practitioner in the ER, Gianni. After she evaluated the patient, they decided to admit the patient to the hospital with the neurological consultation and cardiology consultation. The indication of the trauma is the left side of the occipital area with the currently 3 stitches and had mild headache but no nausea, no vomiting, no blurred vision and the pupil was equal, reactive. The patient has home medication which has been reviewed and ordered. Including the home medication, she had underlying several medications due to her current present illness. CURRENT ILLNESS: The patient is suffering from history of severe depression and she had lethargy and also forgetfulness. She had history of aortoiliac bypass due to peripheral vascular disease of the lower extremities. She had history of diabetes mellitus and history of GERD, hyperlipidemia, hypothyroidism. She has underlying rheumatoid arthritis treated by Dr. Connor, the debridging machine operator and she had progressive memory impairment and she stated that she could not remember her medication and she used to take her medication without help, but now she needs the help from her to remember her medication. She had history of hypertension and diabetes mellitus. SURGICAL HISTORY: She had history of radiation and lumpectomy and aortoiliac bypass by vascular surgeon in [facility] and she had recently admission to the hospital with upper endoscopy by Dr. White in the absence of Dr. Mejia. At that time, it was found that she had severe esophagitis as well as she had history of Zarate's esophagus with mild stricture. She was treated with Prilosec. The right breast cancer treated with radiation therapy and lumpectomy. She had history of aortic aneurysm in the past, appendectomy back surgery, breast surgery, heart catheterization and tubal ligation. SOCIAL HISTORY: She had 2 sons, 1 of them in [place] and she is and her at bedside. 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 She had laminectomy in the past and bunionectomy bilateral in the feet. No history of reaction from blood transfusion or anesthesiology. She had history of significant psychiatric problem and her psychiatrist in [facility], Dr. Harper was considered her as bipolar and depression. However, she was seen in the last hospitalization by Dr. Wheatley, the psychiatrist, hospitalist, and she made the diagnosis and she took her off on Zyprexa and put her on Cymbalta. Currently since her last discharge from the hospital at [facility], she did not see her psychiatrist in [facility] and she continued with her Cymbalta. She had history of, sisters has cancer; father, aneurysm; mother, aneurysm; and brother, aneurysm. REVIEW OF SYSTEMS: Neuropsychiatry, she has progressively forgetfulness. However, currently she had a syncopal episode and she felt at that time that she is fainting and tried to hold on her when she stand up. Other than that, she was lethargic as she stated and she is sleeping all the time. The etiology was unknown or unclear. She has been seen by the Cardiology and several neurology and several psychiatrists. However, she is also seen by the debridging machine operator and she did not see any neurologist recently. No added symptoms for review of systems except the probability or possibility of the starting of dementia, however, the patient will be seen by the neurologist as well in this admission and she was admitted on observation. Also, she will be seen by the Cardiology with the underlying syncopal episode. PHYSICAL EXAMINATION: GENERAL: On the examination, she is conscious, alert, oriented. She stated that she currently is more forgetful. She is still thinking that the depression and crying and her thoughts are not appropriate. HEENT: Her head was normocephalic. She had a trauma to the occipital area with 3 stitches with bleeding and laceration of the occiput. Eyes, pupils are equal, reactive. Conjunctivae are pink. Sclerae are nonicteric. Oropharynx, she has upper plate only. The lower denture is not available with her, but at home she had. There is no periorbital swelling or tenderness. NECK: Supple. No JVD. However, the CT scan reviewed with significant arthritis as well as spondylolisthesis between C4 until T1 with the other arthritis present in her knees, hips, and spine. LUNGS: No wheezes, no rhonchi, normal breath sounds. CARDIOVASCULAR: She has been with underlying no chest pain, no short of breath prior to that, and she had history of bradycardia. GI: She had history of inability to control her BM and she wear diapers and she had recently diarrhea, however, is currently controlled and formed stool by the patient. She is able to ambulate prior to the event with the syncope. EXTREMITIES: She has a multiple pigmentation due to the ecchymoses and bleeding under the skin with brownish discoloration. Pulses however are intact in the dorsalis pedis and the posterior tibial and the popliteal as well as femoral bilateral with the intact bypass. She had hammertoes, no onychomycosis and no tinea pedis. NEUROLOGICAL: The patient is able to move her foot on extension and flexion. She is able to do knee flexion and extension and straight leg elevation on both sides, right and left. She has sensation impaired with the underlying diabetic neuropathy probability and cranial nerves 2 through 12 was intact. PSYCHIATRIC: She has still uncontrolled depression. She was crying as well and she is emotional. SKIN: Warm and dry, except the laceration on the occiput of her head. No petechiae. No diaphoresis and no cyanosis or pallor. DIAGNOSTIC DATA: On reviewing of her EKG, it was mentioned that she had sinus bradycardia with the heart rate 55 beats per minute. She had also laceration, linear and treated with stitches. Local infiltration of lidocaine 1% and irrigation and 3 sophia were placed in the ER by the ER nurse practitioner. The CT scan showed left parietal scalp hematoma with no acute intracranial abnormality seen, and she had a mild to moderate multilevel spondylotic changes in the cervical spine. Her hemoglobin was 11 with underlying history of chronic anemia and she had also history of diabetes mellitus as well and her white count was normal at 7.3. We do not have the urinalysis and the patient has history of recent urinary tract infection with Klebsiella pneumonia, it was best treated with Cipro and the patient finished her Cipro already, to repeat a UA with reflux to culture and sensitivity to see if any recurrence. She had mild thrombocytopenia with the platelet 122 and hemoglobin is 11 and hematocrit 32.8. And her PT and INR was normal as well as his blood sugar was 143, and I ordered a hemoglobin A1c, which was not done in the ER. ASSESSMENT: Syncopal episode of unclear etiology. PLAN: We will obtain the further admission with observation. Neurology consult and Cardiology consult for evaluation and treatment as well. We ordered the hemoglobin A1c and [id number] with NovoLog. We will check her thyroid function, TSH with reflux for further evaluation for the underlying sleepy and lethargy. We will follow her tomorrow. Discussed with the patient and her in detail with extended time. The patient is admitted on observation. MMODL / IJN: [id number] /
[2022-11-27] MEDS: SODIUM CHLORIDE 0.9% 1,000 ML IV SCH (05:52)
[2022-11-27] MEDS: LEVOTHYROXINE 75 MCG TAB PO SCH (05:52)
[2022-11-27 07:26] LABS: Glucose,Whole Blood 102 mg/dL (70-110)
[2022-11-27] MEDS ORDERED: FUROSEMIDE 40 MG TAB PO SCH (09:00)
[2022-11-27] MEDS ORDERED: amLODIPine 5 MG TAB PO SCH (09:00)
[2022-11-27] MEDS ORDERED: lisinopriL 5 MG TAB PO SCH (09:00)
[2022-11-27] MEDS: METOPROLOL TARTRATE 12.5 MG TAB PO SCH ×2 (09:06→20:05)
[2022-11-27] MEDS: CHOLECALCIFEROL 25 MCG (1000 IU) TABLET PO SCH (09:06)
[2022-11-27] MEDS: DULoxetine HCL 20 MG CAPSULE.DR PO SCH (09:06)
[2022-11-27] MEDS: RANOLAZINE 500 MG TAB.ER.12H PO SCH ×2 (09:07→20:04)
[2022-11-27] MEDS: ASPIRIN 81 MG PO SCH (09:07)
[2022-11-27] MEDS: predniSONE 5 MG TAB PO SCH (09:07)
[2022-11-27] MEDS: CYANOCOBALAMIN 500 MCG TAB PO SCH (09:07)
[2022-11-27] MEDS: TADALAFIL 10 MG PO SCH (09:07)
[2022-11-27] MEDS: FERROUS SULFATE 325 MG TAB PO SCH ×2 (09:07→16:51)
[2022-11-27] MEDS: ACETAMINOPHEN TAB 325 MG TAB PO PRN ×2 (09:11→20:04)
[2022-11-27 10:16] LABS: African American GFR (CKD) 56.6 (60.0-200.0); Anion Gap 6.3 mmol/L (10.00-18.00); BUN/Creat Ratio 24.66 Ratio (12.00-20.00); Basophils # (A) 0.04 X 10*3/uL (0.00-0.10); Basophils % (A) 0.7 %; Blood Urea Nitrogen 25.4 mg/dL (9.0-27.0); Calcium 8.7 mg/dL (8.7-10.3); Carbon Dioxide 26.9 mmol/L (20.0-27.5); Eosinophils # (A) 0.15 X 10*3/uL (0.04-0.35); Eosinophils % (A) 2.8 %; HCT 30.6 % (37.2-46.3); HGB 9.9 g/dL (12.0-15.0); Immature Grans, Automated 1.3 %; Lymphocytes # (A) 1.33 X 10*3/uL (0.90-5.00); Lymphocytes % (A) 24.8 %; MCH 32.8 pg (27.0-32.0); MCHC 32.4 g/dL (32.0-37.0); MCV 101.3 fL (80.0-97.0); Mean Platelet Volume 11.2 fL (9.5-12.2); Monocytes # (A) 0.52 X 10*3/uL (0.20-1.00); Monocytes % (A) 9.7 %; NRBC Per 100 WBC 0 /100 WBCS (0.0-0.0); Neutrophils # (A) 3.26 X 10*3/uL (1.80-7.70); Neutrophils % (A) 60.7 %; Non-African American GFR(CKD) 48.8 (60.0-200.0); Platelet Count 112 X 10*3/uL (140-440); Potassium 4.3 mmol/L (3.5-5.5); RBC 3.02 X 10*6/uL (4.10-5.20); RDW 17.1 % (11.5-14.5); WBC 5.37 X 10*3/uL (4.50-10.00)
[2022-11-27 12:29] LABS: Glucose,Whole Blood 118 mg/dL (70-110)
--- NOTE | 2022-11-27 12:59 | P.CRDCN ---
History of Present Illness Consult date: 11/27/22 Consult reason: sycope History of present illness: The patient is an 87-year-old female who presented to the emergency room after a traumatic fall. The patient states she was sitting outside and when she arose from her seat, she completely blacked out falling and hitting the back of her head. She received several stitches in the emergency room and was admitted for observation. Low blood pressure readings were recorded at the time of her in itial admission. At the time of my examination the patient was resting comfortably in bed. She states she has had multiple dizzy spells when arising too quickly. She states she is also had several episodes of syncope in the past. DIAGNOSTICS: EKG shows sinus rhythm without ST or T-wave abnormalities Chest x-ray shows chronic changes without new acute process Computed tomography scan of the head shows chronic small vessel disease without any acute bleed PAST MEDICAL HISTORY: Diabetes, hyperlipidemia, hypothyroidism, aortoiliac bypass REVIEW OF SYSTEMS: No fever or chills. No cough or expectoration. No diaphoresis. Patient denies blurred vision, double vision. Patient denies any stomach discomfort. No nausea, vomiting. No hematochezia. No hematemesis. Denies any black stools or blood in his stools. Denies dysuria or hematuria. No muscle weakness or numbness. Positive for weakness and fatigue. No chest pain or chest pressure. Positive for headache PHYSICAL EXAMINATION: This is a 87-year-old female in no apparent distress at the time of my examination. HEENT: Head is atraumatic, normocephalic. Pupils are equal, round. Sclerae anicteric. Conjunctivae are clear. Mucous membranes of the mouth are moist. Neck is supple. There is no jugular venous distention. No carotid bruit is heard. CHEST EXAMINATION: Lungs are clear to auscultation. No chest wall tenderness is noted on palpation or with deep breathing. HEART EXAMINATION: Heart regular rate and rhythm. S1, S2 heard. Systolic murmur. No gallops or rub. ABDOMEN: Soft, nontender. Bowel sounds are heard. No organomegaly noted. EXTREMITIES: 2+ peripheral pulses with no evidence of peripheral edema and no calf tenderness noted. NEUROLOGIC EXAMINATION: Patient is awake, alert and oriented x3. FINAL ASSESSMENT AND PLAN: Syncope and collapse History hypertension History diabetes History of hyperlipidemia Systolic murmur PLAN: Discontinue lisinopril and IV fluids Check orthostatic blood pressure Echocardiogram and Doppler studies to assess heart structure and function Continue to monitor on telemetry for bradycardia Further recommendations are based on clinical course I am dictating on behalf of Dr Ian Desouza's history/physical and assessment/plan. Past Medical History Past Medical History: Cancer, Diabetes Mellitus, GERD/Reflux, Hyperlipidemia, Hypertension, Memory Impairment, Rheumatoid Arthritis (RA), Thyroid Disorder Additional Past Medical History / Comment(s): States age related memory impairment. 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 Hx right breast cancer had a lumpectomy and radiaiton tx,, aortic aneurysm(sx done). per [facility] "leaky heart valve", bowel obstruction with no sx, j ust colonoscopy and egd done. History of Any Multi-Drug Resistant Organisms: None Reported Past Surgical History: Appendectomy, Back Surgery, Breast Surgery, Heart Catheterization, Tonsillectomy, Tubal Ligation Additional Past Surgical History / Comment(s): Surgery for arortic aneurysm, surgery on toes of bilateral feet, ablation done on back X2, had uvula removed.lt carpal tunnel release, beverly cataracts, beverly carotid endarterectomy, partial rt mastectomy. colonoscopy/egd/esophgeal dilations, laminectomy/past pain clinic procedures, bunionectomy beverly feet. Past Anesthesia/Blood Transfusion Reactions: No Reported Reaction Past Psychological History: No Psychological Hx Reported Additional Psychological History / Comment(s): lives with spouse, has Syndiant, has cane, walker, rollator, shower chair, bp machine, glucometer. Smoking Status: Former smoker Past Alcohol Use History: Rare Additional Past Alcohol Use History / Comment(s): Smoked <1/2PPD for 15 yrs, quit in 1995. Past Drug Use History: None Reported - Past Family History Sister(s) Family Medical History: Cancer Additional Family Medical History / Comment(s): Aneurysm. States 3 of her s isters had cancer. Father Additional Family Medical History / Comment(s): Anerysym Mother Additional Family Medical History / Comment(s): Aneurysm Brother(s) Additional Family Medical History / Comment(s): Aneurysm Medications and Allergies Home Medications Medication Instructions Recorded Confirmed Type Omeprazole 20 mg PO DAILY PRN 07/02/16 11/26/22 History Etanercept [Enbrel] 50 mg SQ WE 05/16/18 11/26/22 History predniSONE 5 mg PO DAILY 08/28/20 11/26/22 History Furosemide [Lasix] 40 mg PO DAILY 04/14/21 11/26/22 History Potassium Chloride [Klor-Con 10 ER] 10 meq PO DAILY@1700 04/14/21 11/26/22 History Ranolazine [Ranolazine ER] 500 mg PO Q12HR 12/25/21 11/26/22 History Aspirin EC [Ecotrin Low Dose] 81 mg PO DAILY 09/17/22 11/26/22 History Levothyroxine Sodium [Synthroid] 75 mcg PO DAILY 09/17/22 11/26/22 History tadalafiL 10 mg PO DAILY 09/17/22 11/26/22 History Loperamide [Imodium] 2 mg PO QID PRN 10/11/22 11/26/22 History Acetaminophen Tab [Tylenol] 650 mg PO Q6HR PRN tab 10/21/22 11/26/22 Rx Atorvastatin [Lipitor] 10 mg PO HS tab 10/21/22 11/26/22 Rx DULoxetine HCL [Cymbalta] 20 mg PO DAILY cap 10/21/22 11/26/22 Rx Ferrous Sulfate [Iron (65 MG 325 mg PO BID-W/MEALS tab 10/21/22 11/26/22 Rx Elemental)] Omeprazole 40 mg PO DAILY #30 cap 10/21/22 11/26/22 Rx amLODIPine [Norvasc] 5 mg PO DAILY tab 10/21/22 11/26/22 Rx Cholecalciferol [Vitamin D3 (25 50 mcg PO DAILY@1200 11/26/22 11/26/22 History Mcg = 1000 Iu)] Cyanocobalamin [Vitamin B-12] 1,000 mcg PO DAILY@1200 11/26/22 11/26/22 History Metoprolol Tartrate [Lopressor] 12.5 mg PO BID 11/26/22 11/26/22 History lisinopriL [Zestril] 5 mg PO DAILY 11/26/22 11/26/22 History Allergies Allergy/AdvReac Type Severity Reaction Status Date / Time adhesive tape Allergy Rash/Hives Verified 11/26/22 17:10 Penicillins Allergy Rash/Hives Verified 11/26/22 17:10 Physical Exam Vitals: Vital Signs Temp Pulse Pulse Pulse Pulse Resp BP 11/27/22 08:54 63 69 73 11/27/22 08:00 11/27/22 07:00 99 F 67 16 11/27/22 02:00 97.9 F 85 14 11/26/22 20:00 98 F 97 20 11/26/22 18:00 66 12 131/57 11/26/22 17:00 62 21 152/59 11/26/22 16:00 65 15 149/63 11/26/22 15:39 98.3 F 63 20 149/63 11/26/22 15:32 63 20 11/26/22 14:32 57 L 12 147/76 11/26/22 14:00 98.6 F 56 L 20 116/76 BP BP BP BP Pulse Ox 11/27/22 08:54 109/57 97/66 126/56 98 11/27/22 08:00 98 11/27/22 07:00 108/54 95 11/27/22 02:00 95/55 96 11/26/22 20:00 128/72 97 11/26/22 18:00 99 11/26/22 17:00 98 11/26/22 16:00 97 11/26/22 15:39 100 11/26/22 15:32 11/26/22 14:32 98 11/26/22 14:00 98 Intake and Output 11/26/22 11/27/22 11/27/22 22:59 06:59 14:59 Intake Total 118 Balance 118 Intake: Oral 118 Other: Voiding Method Toilet Diaper Incontinent # Voids 1 Weight 49.442 kg Results 11/27/22 06:19 11/27/22 06:19 Cardiac Enzymes 11/26/22 11/26/22 Range/Units 14:48 14:48 AST 17 (14-36) U/L Troponin I <0.012 (0.000-0.034) ng/mL Coagulation 11/26/22 Range/Units 14:48 PT 10.6 (9.0-12.0) sec APTT 21.2 L (22.0-30.0) sec CBC 11/26/22 11/27/22 Range/Units 14:48 06:19 WBC 7.3 5.37 (3.8-10.6) k/uL RBC 3.29 L 3.02 L (3.80-5.40) m/uL Hgb 11.0 L 9.9 L (11.4-16.0) gm/dL Hct 32.8 L 30.6 L (34.0-46.0) % Plt Count 122 L 112 L (150-450) k/uL Comprehensive Metabolic Panel 11/26/22 11/27/22 Range/Units 14:48 06:19 Sodium 134 L 138 (137-145) mmol/L Potassium 4.1 4.3 (3.5-5.1) mmol/L Chloride 100 105 (98-107) mmol/L Carbon Dioxide 26 26.9 (22-30) mmol/L BUN 36 H 25.4 (7-17) mg/dL Creatinine 1.03 1.0 (0.52-1.04) mg/dL Glucose 135 H 96 (74-99) mg/dL Calcium 9.0 8.7 (8.4-10.2) mg/dL AST 17 (14-36) U/L ALT 14 (4-34) U/L Alkaline Phosphatase 50 (38-126) U/L Total Protein 6.0 L (6.3-8.2) g/dL Albumin 3.5 (3.5-5.0) g/dL Current Medications Generic Name Dose Route Start Last Admin Trade Name Freq PRN Reason Stop Dose Admin Acetaminophen 650 mg 11/26/22 18:05 11/27/22 09:11 Acetaminophen Tab 325 Mg Tab PO 650 mg Q6HR PRN Administration Mild Pain or Fever > 100.5 Amlodipine Besylate 5 mg 11/27/22 09:00 11/27/22 09:07 Amlodipine 5 Mg Tab PO 5 mg DAILY RIO Administration Aspirin 81 mg 11/27/22 09:00 11/27/22 09:07 Aspirin 81 Mg PO 81 mg DAILY RIO Administration Atorvastatin Calcium 10 mg 11/26/22 21:00 11/26/22 21:03 Atorvastatin 10 Mg Tab PO 10 mg HS RIO Administration Cholecalciferol 50 mcg 11/27/22 12:00 11/27/22 09:06 Cholecalciferol 25 Mcg (1000 Iu) Tablet PO 50 mcg DAILY@1200 RIO Administration Cyanocobalamin 1,000 mcg 11/27/22 12:00 11/27/22 09:07 Cyanocobalamin 500 Mcg Tab PO 1,000 mcg DAILY@1200 [facility] Administration Duloxetine HCl 20 mg 11/27/22 09:00 11/27/22 09:06 Duloxetine Hcl 20 Mg Capsule.Dr PO 20 mg DAILY RIO Administration Ferrous Sulfate 325 mg 11/27/22 07:30 11/27/22 09:07 Ferrous Sulfate 325 Mg Tab PO 325 mg BID-W/MEALS RIO Administration Furosemide 40 mg 11/27/22 09:00 11/27/22 09:07 Furosemide 40 Mg Tab PO 40 mg DAILY RIO Administration Levothyroxine Sodium 75 mcg 11/27/22 06:30 11/27/22 05:52 Levothyroxine 75 Mcg Tab PO 75 mcg DAILY@0630 [facility] Administration Loperamide HCl 2 mg 11/26/22 18:05 Loperamide 2 Mg Cap PO QID PRN Diarrhea Metoprolol Tartrate 12.5 mg 11/26/22 21:00 11/27/22 09:06 Metoprolol Tartrate 12.5 Mg Tab PO 12.5 mg BID [facility] Administration Naloxone HCl 0.2 mg 11/26/22 17:03 Naloxone 0.4 Mg/Ml 1 Ml Vial IV Q2M PRN Opioid Reversal Naproxen 500 mg 11/26/22 21:51 Naproxen 250 Mg Tab PO BID PRN Headache Tadalafil [Tadalafil 10 mg 11/27/22 09:00 11/27/22 09:07 ] 10 Mg Tablet PO Not Given DAILY [facility] Pantoprazole Sodium 40 mg 11/26/22 18:05 Pantoprazole 40 Mg Tablet PO DAILY PRN ACID REFLUX Potassium Chloride 10 meq 11/27/22 17:00 Potassium Chloride Er 10 Meq Tab.Er.Prt PO DAILY@1700 [facility] Prednisone 5 mg 11/27/22 09:00 11/27/22 09:07 Prednisone 5 Mg Tab PO 5 mg DAILY [facility] Administration Ranolazine 500 mg 11/26/22 21:00 11/27/22 09:07 Ranolazine 500 Mg Tab.Er.12h PO 500 mg Q12HR RIO Administration Intake and Output 11/26/22 11/27/22 11/27/22 22:59 06:59 14:59 Intake Total 118 Balance 118 Intake: Oral 118 Other: Voiding Method Toilet Diaper Incontinent # Voids 1 Weight 49.442 kg 11/27/22 06:19 11/27/22 06:19
--- NOTE | 2022-11-27 13:57 | P.CNNES ---
History of Present Illness Consult date: 11/27/22 Requesting physician: hTomas Wan Reason for Consult: syncope, weakness History of Present Illness: This is an 87-year-old woman with history of syncope, reported memory impairment, diabetes mellitus, hypertension, bilateral carotid endarectomy >20 yers ago, with lower back pain status post laminectomy and ablation, motor arthritis, hypothyroidism who presented to the emergency department because of passing out episode. Patient stated that yesterday she was with her in seated up and the was standing and all of a sudden she fell backward and leaned against her and she felt she passed out very briefly. She denies being told that she had any jerk in of any extremities. She denies of any urinary or bowel incontinence. She denies any tongue bite. Denies any head trauma. She had a similar episode a couple weeks ago while standing up or looking at the window. She denies any history of seizures. I personally and the patient in April 2021 for generalized weakness. Please refer to my notes further details. Some of the workup during this hospitalization consisted of: Orthostatic vitals is supine blood pressure 126/56 with a heart rate 73, sitting is 109/57 with a heart rate 63 and the standing is 97/66 with a heart rate of 69. Her heart rate has been in the range of 50s to 60s TSH is 6.5 to Free T4 is 1.08 Hemoglobin A1c is 5.5 Calcium is 8.7. She has not had any hypoglycemic event that. CT of the head is reported as mild hydrocephalus remains unchanged from my 04/15/2021. 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 Correlate to exclude a component of NPH. Call phone burden of chronic small vessel ischemic disease. There is a left parietal scalp hematoma but without any acute intracranial abnormality seen. I personally reviewed the CT of the degree with the report CT cervical spine: Is reported as mild to moderate multilevel spondylitic changes of the cervical spine. Degenerative grade 1 spondylolysis C4-T1 levels. No acute fracture seen of the cervical spine. Note a dilated and that debris felt thoracic suffered guess partially seen. Correlate to exclude a lower esophageal obstruction or severe gastroesophageal reflux disease Past Medical History Past Medical History: Cancer, Diabetes Mellitus, GERD/Reflux, Hyperlipidemia, Hypertension, Memory Impairment, Rheumatoid Arthritis (RA), Thyroid Disorder Additional Past Medical History / Comment(s): States age related memory impairment. 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 Hx right breast cancer had a lumpectomy and radiaiton tx,, aortic aneurysm(sx done). per [facility] "leaky heart valve", bowel obstruction with no sx, just colonoscopy and egd done. History of Any Multi-Drug Resistant Organisms: None Reported Past Surgical History: Appendectomy, Back Surgery, Breast Surgery, Heart Catheterization, Tonsillectomy, Tubal Ligation Additional Past Surgical History / Comment(s): Surgery for arortic aneurysm, surgery on toes of bilateral feet, ablation done on back X2, had uvula removed.lt carpal tunnel release, beverly cataracts, beverly carotid endarterectomy, partial rt mastectomy. colonoscopy/egd/esophgeal dilations, laminectomy/past pain clinic procedures, bunionectomy beverly feet. Past Anesthesia/Blood Transfusion Reactions: No Reported Reaction Past Psychological History: No Psychological Hx Reported Additional Psychological History / Comment(s): lives with spouse, has [employer], has cane, walker, rollator, shower chair, bp machine, glucometer. Smoking Status: Former smoker Past Alcohol Use History: Rare Additional Past Alcohol Use History / Comment(s): Smoked <1/2PPD for 15 yrs, quit in 1995. Past Drug Use History: None Reported - Past Family History Sister(s) Family Medical History: Cancer Additional Family Medical History / Comment(s): Aneurysm. States 3 of her sisters had cancer. Father Additional Family Medical History / Comment(s): Anerysym Mother Additional Family Medical History / Comment(s): Aneurysm Brother(s) Additional Family Medical History / Comment(s): Aneurysm Medications and Allergies Home Medications Medication Instructions Recorded Confirmed Type Omeprazole 20 mg PO DAILY PRN 07/02/16 11/26/22 History Etanercept [Enbrel] 50 mg SQ WE 05/16/18 11/26/22 History predniSONE 5 mg PO DAILY 08/28/20 11/26/22 History Furosemide [Lasix] 40 mg PO DAILY 04/14/21 11/26/22 History Potassium Chloride [Klor-Con 10 ER] 10 meq PO DAILY@1700 04/14/21 11/26/22 History Ranolazine [Ranolazine ER] 500 mg PO Q12HR 12/25/21 11/26/22 History Aspirin EC [Ecotrin Low Dose] 81 mg PO DAILY 09/17/22 11/26/22 History Levothyroxine Sodium [Synthroid] 75 mcg PO DAILY 09/17/22 11/26/22 History tadalafiL 10 mg PO DAILY 09/17/22 11/26/22 History Loperamide [Imodium] 2 mg PO QID PRN 10/11/22 11/26/22 History Acetaminophen Tab [Tylenol] 650 mg PO Q6HR PRN tab 10/21/22 11/26/22 Rx Atorvastatin [Lipitor] 10 mg PO HS tab 10/21/22 11/26/22 Rx DULoxetine HCL [Cymbalta] 20 mg PO DAILY cap 10/21/22 11/26/22 Rx Ferrous Sulfate [Iron (65 MG 325 mg PO BID-W/MEALS tab 10/21/22 11/26/22 Rx Elemental)] Omeprazole 40 mg PO DAILY #30 cap 10/21/22 11/26/22 Rx amLODIPine [Norvasc] 5 mg PO DAILY tab 10/21/22 11/26/22 Rx Cholecalciferol [Vitamin D3 (25 50 mcg PO DAILY@1200 11/26/22 11/26/22 History Mcg = 1000 Iu)] Cyanocobalamin [Vitamin B-12] 1,000 mcg PO DAILY@1200 11/26/22 11/26/22 History Metoprolol Tartrate [Lopressor] 12.5 mg PO BID 11/26/22 11/26/22 History lisinopriL [Zestril] 5 mg PO DAILY 11/26/22 11/26/22 History Allergies Allergy/AdvReac Type Severity Reaction Status Date / Time adhesive tape Allergy Rash/Hives Verified 11/26/22 17:10 Penicillins Allergy Rash/Hives Verified 11/26/22 17:10 Physical Examination - Vital Signs Vital Signs: Vital Signs Temp Pulse Pulse Pulse Pulse Resp BP 11/27/22 08:54 63 69 73 11/27/22 08:00 11/27/22 07:00 99 F 67 16 11/27/22 02:00 97.9 F 85 14 11/26/22 20:00 98 F 97 20 11/26/22 18:00 66 12 131/57 11/26/22 17:00 62 21 152/59 11/26/22 16:00 65 15 149/63 11/26/22 15:39 98.3 F 63 20 149/63 11/26/22 15:32 63 20 11/26/22 14:32 57 L 12 147/76 11/26/22 14:00 98.6 F 56 L 20 116/76 BP BP BP BP Pulse Ox 11/27/22 08:54 109/57 97/66 126/56 98 11/27/22 08:00 98 11/27/22 07:00 108/54 95 11/27/22 02:00 95/55 96 11/26/22 20:00 128/72 97 11/26/22 18:00 99 11/26/22 17:00 98 11/26/22 16:00 97 11/26/22 15:39 100 11/26/22 15:32 11/26/22 14:32 98 11/26/22 14:00 98 Intake and Output 11/26/22 11/27/22 11/27/22 22:59 06:59 14:59 Intake Total 118 Balance 118 Intake: Oral 118 Other: Voiding Method Toilet Diaper Incontinent # Voids 1 Weight 49.442 kg GENERAL: The patient is lying in bed and is not in acute distress. NEUROLOGICAL: Higher mental function: The patient is awake, alert, oriented to self, place and time. Patient is following commands. No aphasia and no neglect. Cranial nerves: The pupils are round, equal and reactive to light and accommodation. Visual leach are full to confrontation throughout. Extraocular movement is intact no nystagmus is noted. Facial sensation is normal to touch throughout. The facial strength is normal throughout. Hearing is moderately decreased bilaterally to hand rub. Tongue is midline and moved [id number] without any difficulty. No dysarthria is noted. Shoulder shrug is normal bilaterally. Motor: The strength is 5 over 5 throughout. Normal tone and bulk. Cerebellum: Normal finger to nose bilaterally. Sensation: Sensation is normal to touch throughout. Reflexes (right/left): 1+ throughout Plantars are mute bilaterally. Results - Laboratory Findings CBC and BMP: 11/27/22 06:19 11/27/22 06:19 Abnormal Lab Findings: Abnormal Labs 11/26/22 11/26/22 11/26/22 14:11 14:48 14:48 RBC 3.29 L Hgb 11.0 L Hct 32.8 L MCV MCH RDW 16.4 H Plt Count 122 L Immature Gran # Lymphocytes # 0.9 L APTT 21.2 L Sodium Anion Gap BUN Est GFR (CKD-EPI)AfAm Est GFR (CKD-EPI)NonAf BUN/Creatinine Ratio Glucose POC Glucose (mg/dL) 143 H Total Protein TSH 11/26/22 11/26/22 11/26/22 14:48 14:48 20:07 RBC Hgb Hct MCV MCH RDW Plt Count Immature Gran # Lymphocytes # APTT Sodium 134 L Anion Gap BUN 36 H Est GFR (CKD-EPI)AfAm Est GFR (CKD-EPI)NonAf BUN/Creatinine Ratio Glucose 135 H POC Glucose (mg/dL) 145 H Total Protein 6.0 L TSH 6.520 H 11/27/22 11/27/22 11/27/22 06:19 06:19 12:26 RBC 3.02 L Hgb 9.9 L Hct 30.6 L MCV 101.3 H MCH 32.8 H RDW 17.1 H Plt Count 112 L Immature Gran # 0.07 H Lymphocytes # APTT Sodium Anion Gap 6.30 L BUN Est GFR (CKD-EPI)AfAm 56.6 L Est GFR (CKD-EPI)NonAf 48.8 L BUN/Creatinine Ratio 24.66 H Glucose POC Glucose (mg/dL) 118 H Total Protein TSH Assessment and Plan Assessment: This is an 87-year-old woman who had a syncopal episode on home. Syncopal episode unknown cause. Stated it was brief and denies any jerking extremities, urinary or bowel incontinence. History of syncopal episode and had a similar presentation about a couple weeks ago ?Possible lower espophaeal obstruction or severe GERD on CTA Reported history memory impairement History of bilateral carotid endarectomy >20 years ago History of right breast cancer post radiation with paritial right masstecomy in late Chronic lower back pain s/p laminectomy and abalation History of falls DM Rheumatoid arthritis Hypothyroidism Remote history of tobacco use Plan: Recommend a routine EEG as well as MRI of the brain but the patient refuses to be here and she was to be discharged immediately. The EEG will not be completed until this tuesday. Recommend repeat orthostatics. Regarding this questionable mild hydrocephalus that seems unchanged since April 2021 and it seems secondary due to central cerebral atrophy. I cannot exclude the normal pressure hydrocephalus and recommend the patient to follow-up with a neurologist and neurosurgeon as an outpatient for consideration of a large volume tap and there is improvement in her walk-in then consider GRAIN INSPECTOR shunt. Echo is ordered by cardiology. Next on cardiology team is on board Regarding ?esophageal obstruction vs GERD will defer work-up and management to primary team. Will defer the rest of the medical medical the primary team The plan was discussed with the patient and her nurse. Time with Patient: Greater than 30
--- NOTE | 2022-11-27 14:46 | P.PN ---
Subjective Progress Note Date: 11/27/22 Principal diagnosis: Syncopal episode at home with following on the cement and occipital trauma with the bleeding of the scalp status post 3 stable placed on left occiput. Diabetes mellitus type 2 Rheumatoid arthritis Osteoarthritis History of hypertension currently hypotensive intermittently with the underlying aortic stenosis and feeling of dizzy and passing out. Chronic depression Anemia Hyperlipidemia Hypothyroidism Peripheral vascular disease with a history of or 2. Bypass. Pulmonary hypertension treated by Dr. Ruiz was rather feel. History of incontinent urine and stools. Wearing diaper GERD disease and Zarate's esophagus. Vitamin B12 deficiency and neuropathy. Vitamin D deficiency. Left arm fracture Progress note dictation date of service 11/27/2022 Dictation by Patient seen today evaluated [id number] and this discussed with her the current plan. Discussed with the patient the recommendation of the cardiology as well as the neurology. Patient requests this to go home I did discuss with her that cardiology Dr. Desouza and his nurse practitioner did order echocardiogram and we don't have results and they stated that depend on the results for further evaluation and treatment especially patient has history of aortic stenosis. Neurology Dr. aWrd did see her today evaluated neurologically and he requested MRI of the brain, and he noted that the patient is very resistant and wants to go home because of the L holiday and MRI is not available in the hospital until Tuesday which prolonged time for the patient to stay in the [facility]. The discussion with the patient advised that to wait for tomorrow until we get from the cardiology the impression of the echocardiogram and any farther treatment or invasion needed meanwhile Discussed with the patient as well in regard of the MRI which will be done on Tuesday if patient stable neurologically and no seizure. And the reason for these discussion and decision patient wants to go home and I did advise her if she wants to go home today that would be AGAINST MEDICAL ADVICE. Also patient during her heel attacher wood hours she went to the bathroom and she become uncomfortable in her feet and dizzy and her blood pressure dropped to 97/[address] Desouza and his nurse practitioner and they discontinue lisinopril for now and the ordered the echocardiogram which is not available to us at this time. And they will see her tomorrow and at that time we'll know from them what their opinion as they stated they could not make any opinion without the echocardiogram with the underlying past history of aortic stenosis and valvular heart disease. Patient however conscious alert oriented able to communicate freely and the her speech is normal and the applesauce and is normal and the able to communicate and to be with help of the nursing staff to reach the bathroom, nursing staff found that her stools black and could be from iron however could be also from loss of blood and the with the underlying drop of the hemoglobin 1.1 g and meanwhile her underlying anemia could be associated with chronic disease but also could be other etiology. Today on exam her vital sign as mentioned was fluctuating with hypotension and blood pressure was 97/66 and 109/57 and 126/65 with underlying postural hypotension IV has been discontinued by Dr. Desouza the cardiology as well. The the head was she had a trauma left occiput with this 3 stay pulse placed in the left occiput. Pupils equal reactive no nausea no vomiting able to eat and swallow neck was supple no JVD no thyromegaly no lymphadenopathy trachea midline. Chest is met kyphoscoliosis and the heart is regular sinus rhythm with systolic murmur on the apex radiated to the aortic area and the abdomen was soft positive bowel sounds no tenderness of nausea and vomiting. Extremities no edema and positive pulses. Assessment #1 syncopal episode etiology is unclear #2 top and the hemoglobin from from 11-9.9 her also GFR is 56.6 was chronic kidney disease her hemoglobin A1c 5.5 with the underlying diabetes Urine analysis was negative with a history of underlying Klebsiella pneumonia has been cleared with the treatment as outpatient at home with his Cipro. #3 underlying valvular heart disease with aortic stenosis. #4 increase the forgetfulness and function and the MRI was requested and ordered by neurology Dr. Ward however not available until next Tuesday. #5 underlying hypothyroidism and hyperlipidemia. #6 hypotension also dropped on heel attacher wood [id number] 95/55 with a mean was 68. Plan: #1 discussed with the patient to stay for safety with the hypotension and evaluation by the echocardiogram and see the cardiology opinion tomorrow. #2 lisinopril discontinued and if for further dropping and blood pressure will try to discontinue all her medication could be contributing. #3 monitoring her syncopal episode and postural hypotension and if any other reason for the dropping the blood pressure. #4 I discussed the plan was the patient and if she insisted to go home she will be need to do discharge AGAINST MEDICAL ADVICE. Objective - Vital Signs Vital signs: Vital Signs Temp 99 F 11/27/22 07:00 Pulse 63 11/27/22 08:54 Resp 16 11/27/22 07:00 BP 126/56 11/27/22 08:54 Pulse Ox 98 11/27/22 08:54 FiO2 Intake & Output 11/26/22 11/27/22 11/27/22 18:59 06:59 18:59 Intake Total 118 Balance 118 Weight 49.442 kg 49.442 kg Intake: Oral 118 Other: Voiding Method Toilet Diaper Incontinent # Voids 1 3 - Labs CBC & Chem 7: 11/27/22 06:19 11/27/22 06:19 Labs: Abnormal Lab Results - Last 24 Hours (Table) 11/26/22 11/26/22 11/26/22 Range/Units 14:48 14:48 14:48 RBC 3.29 L (3.80-5.40) m/uL Hgb 11.0 L (11.4-16.0) gm/dL Hct 32.8 L (34.0-46.0) % MCV (80.0-97.0) fL MCH (27.0-32.0) pg RDW 16.4 H (11.5-15.5) % Plt Count 122 L (150-450) k/uL Immature Gran # (0.00-0.04) X 10*3/uL Lymphocytes # 0.9 L (1.0-4.8) k/uL APTT 21.2 L (22.0-30.0) sec Sodium 134 L (137-145) mmol/L Anion Gap (10.00-18.00) mmol/L BUN 36 H (7-17) mg/dL Est GFR (CKD-EPI)AfAm (60.0-200.0) Est GFR (CKD-EPI)NonAf (60.0-200.0) BUN/Creatinine Ratio (12.00-20.00) Ratio Glucose 135 H (74-99) mg/dL POC Glucose (mg/dL) (70-110) mg/dL Total Protein 6.0 L (6.3-8.2) g/dL TSH (0.465-4.680) mIU/L 11/26/22 11/26/2211/27/23 Range/Units 14:48 20:07 06:19 RBC 3.02 L (3.80-5.40) m/uL Hgb 9.9 L (11.4-16.0) gm/dL Hct 30.6 L (34.0-46.0) % MCV 101.3 H (80.0-97.0) fL MCH 32.8 H (27.0-32.0) pg RDW 17.1 H (11.5-15.5) % Plt Count 112 L (150-450) k/uL Immature Gran # 0.07 H (0.00-0.04) X 10*3/uL Lymphocytes # (1.0-4.8) k/uL APTT (22.0-30.0) sec Sodium (137-145) mmol/L Anion Gap (10.00-18.00) mmol/L BUN (7-17) mg/dL Est GFR (CKD-EPI)AfAm (60.0-200.0) Est GFR (CKD-EPI)NonAf (60.0-200.0) BUN/Creatinine Ratio (12.00-20.00) Ratio Glucose (74-99) mg/dL POC Glucose (mg/dL) 145 H (70-110) mg/dL Total Protein (6.3-8.2) g/dL TSH 6.520 H (0.465-4.680) mIU/L 11/27/22 11/27/22 Range/Units 06:19 12:26 RBC (3.80-5.40) m/uL Hgb (11.4-16.0) gm/dL Hct (34.0-46.0) % MCV (80.0-97.0) fL MCH (27.0-32.0) pg RDW (11.5-15.5) % Plt Count (150-450) k/uL Immature Gran # (0.00-0.04) X 10*3/uL Lymphocytes # (1.0-4.8) k/uL APTT (22.0-30.0) sec Sodium (137-145) mmol/L Anion Gap 6.30 L (10.00-18.00) mmol/L BUN (7-17) mg/dL Est GFR (CKD-EPI)AfAm 56.6 L (60.0-200.0) Est GFR (CKD-EPI)NonAf 48.8 L (60.0-200.0) BUN/Creatinine Ratio 24.66 H (12.00-20.00) Ratio Glucose (74-99) mg/dL POC Glucose (mg/dL) 118 H (70-110) mg/dL Total Protein (6.3-8.2) g/dL TSH (0.465-4.680) mIU/L
--- NOTE | 2022-11-27 16:43 | CA ---
Transthoracic Echo Report Name: Delmy Collazo Age: 87 Gender: F : 1935 Exam Date: 11/27/2022 09:18 Exam Location: [facility] Ht (in): 58 Wt (lb): 109 Ordering Physician: Radha Billings Attending/Referring Phys: [id number], Awa Director Operations Broadcast Radha Tejeda RDCS Procedure CPT: Indications: aortic stenosis, syncope Cardiac Hx: Technical Quality: Fair Contrast 1: Total Dose (mL): Contrast 2: Total Dose (mL): MEASUREMENTS (Male / Female) Normal Values 2D ECHO LV Diastolic Diameter PLAX 3.3 cm 4.2 - 5.9 / 3.9 - 5.3 cm LV Systolic Diameter PLAX 1.8 cm IVS Diastolic Thickness 1.3 cm 0.6 - 1.0 / 0.6 - 0.9 cm LVPW Diastolic Thickness 1.5 cm 0.6 - 1.0 / 0.6 - 0.9 cm LV Relative Wall Thickness 0.8 RV Internal Dim ED PLAX 2.5 cm LA Volume 71.8 cm??? 18 - 58 / 22 - 52 cm??? M-MODE Aortic Root Diameter MM 2.5 cm LA Systolic Diameter MM 4.6 cm LA Ao Ratio MM 1.8 AV Cusp Separation MM 1.3 cm DOPPLER AV Peak Velocity 210.2 cm/s AV Peak Gradient 17.7 mmHg AV Mean Velocity 147.7 cm/s AV Mean Gradient 9.6 mmHg AV Velocity Time Integral 50.0 cm AI Peak Velocity 457.8 cm/s AI Peak Gradient 83.8 mmHg AI Pressure Half Time 464.6 ms LVOT Peak Velocity 129.4 cm/s LVOT Peak Gradient 6.7 mmHg LVOT Velocity Time Integral 31.7 cm MV Area PHT 2.8 cm??? Mitral E Point Velocity 103.6 cm/s Mitral A Point Velocity 139.4 cm/s Mitral E to A Ratio 0.7 MV Deceleration Time 270.7 ms MV E' Velocity 4.4 cm/s Mitral E to MV E' Ratio 23.7 TR Peak Velocity 272.6 cm/s TR Peak Gradient 29.7 mmHg Right Ventricular Systolic Press 33.7 mmHg FINDINGS Left Ventricle Mildly increased left ventricular wall thickness. Left ventricular cavity size normal. Normal left ventricular systolic function with no obvious regional wall motion abnormalities. Left ventricular ejection fraction is estimated at 55-60 %. Right Ventricle Normal right ventricular size and function. Right ventricular systolic pressure within normal limits. Right Atrium Normal right atrial size. Left Atrium Moderately increased left atrial volume. Mildly increased left atrial area. Mitral Valve Structurally normal mitral valve. Mild mitral annular calcification. Mitral valve thickened. Mild mitral regurgitation. Aortic Valve Trileaflet aortic valve. Mild aortic stenosis with a peak gradient of 18 mmHg and a mean gradient of 10 mmHg. [id number] aortic regurgitation. Aortic valve sclerosis. Tricuspid Valve Mild tricuspid regurgitation. Pulmonic Valve Trace pulmonic regurgitation. Pericardium No pericardial effusion. Aorta Normal size aortic root and proximal ascending aorta. CONCLUSIONS Left ventricle hypertrophy Prominent septal bulge Reserved LV systolic function Mild aortic stenosis, calcific 2+ aortic regurgitation Previewed by: Dr. Ian Desouza MD (Electronically Signed) Final Date: 27 Nov 2022 16:42
[2022-11-27] MEDS ORDERED: POTASSIUM CHLORIDE ER 10 MEQ TAB.ER.PRT PO SCH (17:00)
[2022-11-27 17:21] LABS: Glucose,Whole Blood 154 mg/dL (70-110)
[2022-11-27] MEDS: ATORVASTATIN 10 MG TAB PO SCH (20:06)
[2022-11-27 20:46] LABS: Glucose,Whole Blood 151 mg/dL (70-110)
[2022-11-27 23:49] LABS: % Iron Saturation 34.32 (12.00-45.00)
[2022-11-28] MEDS: ACETAMINOPHEN TAB 325 MG TAB PO PRN ×3 (03:08→15:37)
[2022-11-28] MEDS: LEVOTHYROXINE 75 MCG TAB PO SCH (07:12)
[2022-11-28 07:59] LABS: Glucose,Whole Blood 110 mg/dL (70-110)
[2022-11-28 08:34] VITALS: RESP 14
[2022-11-28] MEDS ORDERED: FUROSEMIDE 20 MG TAB PO SCH (09:00)
[2022-11-28] MEDS ORDERED: amLODIPine 2.5 MG TAB PO SCH (09:00)
[2022-11-28] MEDS: CYANOCOBALAMIN 500 MCG TAB PO SCH (10:06)
[2022-11-28] MEDS: METOPROLOL TARTRATE 12.5 MG TAB PO SCH (10:06)
[2022-11-28] MEDS: RANOLAZINE 500 MG TAB.ER.12H PO SCH (10:06)
[2022-11-28] MEDS: DULoxetine HCL 20 MG CAPSULE.DR PO SCH (10:06)
[2022-11-28] MEDS: CHOLECALCIFEROL 25 MCG (1000 IU) TABLET PO SCH (10:07)
[2022-11-28] MEDS: ASPIRIN 81 MG PO SCH (10:07)
[2022-11-28] MEDS: predniSONE 5 MG TAB PO SCH (10:07)
[2022-11-28] MEDS: FERROUS SULFATE 325 MG TAB PO SCH (10:07)
[2022-11-28] MEDS: TADALAFIL 10 MG PO SCH (10:41)
[2022-11-28 11:37] VITALS: BMI 22.0
--- NOTE | 2022-11-28 12:37 | P.PN ---
Subjective Progress Note Date: 11/28/22 The patient is an 87-year-old female who presented to the hospital after a traumatic fall. The patient stood up to go inside, when she collapsed to the ground, hitting her head. Orthostatic blood pressure readings to show a 20 point fluctuation when standing. The patient was interviewed and examined lying comfortably in bed. She states she got up and went to the restroom overnight and did not have any dizziness or lightheadedness. She also denies any chest pain or difficulty breathing. GENERAL: Well-appearing, well-nourished and in no acute distress. NECK: Supple without JVD or thyromegaly. LUNGS: Breath sounds clear to auscultation bilaterally. Respiration equal and unlabored. No wheezes, rales or rhonchi. HEART: Regular rate and rhythm. Soft systolic murmur. No rubs or gallops. S1 and S2 heard. EXTREMITIES: Normal range of motion, no edema. No clubbing or cyanosis. Peripheral pulses intact and strong. TELEMETRY: Sinus rhythm overnight. No bradycardia IMPRESSION: Syncope and collapse Orthostatic hypotension History hypertension History diabetes History of hyperlipidemia Mild aortic stenosis with moderate insufficiency PLAN: Split amlodipine dosing in the 2-1/2 mg twice daily Reduce furosemide Outpatient follow-up with primary retail project merchandiser I am dictating on behalf of Dr Ian Desouza's history/physical and assessment/plan. Objective - Vital Signs Vital signs: Vital Signs Temp 98.1 F 11/28/22 07:00 Pulse 59 L 11/28/22 07:00 Resp 14 11/28/22 07:00 BP 144/62 11/28/22 07:00 Pulse Ox 97 11/28/22 07:00 FiO2 Intake & Output 11/27/22 11/28/22 11/28/22 18:59 06:59 18:59 Intake Total 148 118 Balance 148 118 Weight 49.442 kg Intake: Oral 148 118 Other: Voiding Method Toilet Diaper Incontinent # Voids 3 1 - Labs CBC & Chem 7: 11/27/22 06:19 11/27/22 06:19 Labs: Abnormal Lab Results - Last 24 Hours (Table) 11/27/22 11/27/22 11/27/22 Range/Units 17:20 19:00 20:45 POC Glucose (mg/dL) 154 H 151 H (70-110) mg/dL Stool Occult Blood Positive H (Negative)
[2022-11-28 13:08] LABS: Glucose,Whole Blood 114 mg/dL (70-110)
--- NOTE | 2022-11-28 14:31 | P.DS ---
Providers Date of admission: 11/26/22 16:43 Expected date of discharge: 11/28/22 Attending physician: Issac Olivia Consults: 11/26/22 17:03 Consult Physician Routine Consulting Provider: Aj Ward Consult Reason/Comments: syncope, weakness Do you want consulting provider notified?: Yes, Notify in am Consult Physician Routine Consulting Provider: Rick Zepeda Consult Reason/Comments: syncope Do you want consulting provider notified?: Yes, Notify in am Primary care physician: Issac Olivia Dictation discharge summary date of service 11/28/[address] Mensah Final diagnoses: #1 syncopal episode probably secondary to hypotension. #2 fall down with the syncopal episode and trauma to the left occiput resulted in wound treated in the ER with the sophia time 3. #3 progressive forgetfulness underlying early cognitive function impairment versus start of dementia #4 depression #5 generalized weakness. 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 Diabetes mellitus type 2 controlled Please copy of the dictation to be faxed to Aziza Lyons, neurologist with the recommendation of neurologist Dr. Ward to have as outpatient EEG and MRI and reevaluation. Please copy to Dr. Sequeira cardiology with the underlying syncopal episode and falling on the cement resulted and left occipital wound and hypotension. Presentation to the emergency room: Patient seen by nurse practitioner, sophia done on the left occipital, with the syncopal episode and patient subsequently admitted on observation with the consultation with the neurologist Dr. Ward and web machine tender, seen in the hospital by Dr. Desouza. Hospital course: Patient seen in the ER with the laboratories as well as computed tomography scan of the head and neck with the advanced arthritis of the cervical neck. As well as the neurologist as well as web machine tender and she had that echocardiogram and patient continued to be as symptomatic no evidence of confusion or blurred vision or seizure Patient however found to have severe orthostatic and was hypotensive and medication was adjusted by the web machine tender as well as the Lasix. Patient had anemia probably with his chronic disease. Laboratory reviewed and her hemoglobin A1c was therapeutic normal. Patient felt stable and wants to be discharged home which agreed by the neurologist and cleared by the web machine tender and I did discuss it with her and the patient and she will be stable for discharge from observation floor to home and to be followed as outpatient by Aziza Lyons and and the cardiology doctor Fabby as outpatient. Exam on discharge Patient is conscious alert oriented 3 her at bedside Head she had trauma with laceration of the left occipital scalp and treated in the ER with sophia. Normal hearing and she had dentures for eating with swallowing normal Pupil was equal reactive no evidence of concussion. Able to stand and walk to the bathroom with the walker. Neck was supple no JVD no thyromegaly no lymphadenopathy trachea midline Chest was clear to auscultation and percussion Heart is regular sinus rhythm and echocardiogram done and cleared by cardiac etiology for discharge Abdomen soft positive bowel sounds no tenderness no nausea no vomiting Extremities no edema and positive pulses with a history of over 2 iliac bypass. Psychiatry stable with underlying depression Neurologically stable with the normal movement and no lateralizing sign however we will advise slow follow-up with the neurologist for for her recommendation was ordered by Dr. Ward neurologist. Patient stable for discharge home today Activity gradually as tolerated Diet diabetic cardiac diet Medication changes Lasix only 20 mg daily and lisinopril discontinued, Norvasc decreased to 2.5 mg twice a day. Rest of her medication is the same no change. Plan - Discharge Summary Discharge Rx Participant: No New Discharge Prescriptions: New amLODIPine [Norvasc] 2.5 mg PO BID #180 tablet No Action Omeprazole 20 mg PO DAILY PRN PRN Reason: ACID REFLUX Etanercept [Enbrel] 50 mg SQ WE predniSONE 5 mg PO DAILY Potassium Chloride [Klor-Con 10 ER] 10 meq PO DAILY@1700 Furosemide [Lasix] 20 mg PO DAILY Ranolazine [Ranolazine ER] 500 mg PO Q12HR Aspirin EC [Ecotrin Low Dose] 81 mg PO DAILY Levothyroxine Sodium [Synthroid] 75 mcg PO DAILY Loperamide [Imodium] 2 mg PO QID PRN PRN Reason: Diarrhea DULoxetine HCL [Cymbalta] 20 mg PO DAILY cap Ferrous Sulfate [Iron (65 MG Elemental)] 325 mg PO BID-W/MEALS tab Metoprolol Tartrate [Lopressor] 12.5 mg PO BID tadalafiL 10 mg PO DAILY Atorvastatin [Lipitor] 10 mg PO HS tab Acetaminophen Tab [Tylenol] 650 mg PO Q6HR PRN tab PRN Reason: Mild Pain Or Fever > 100.5 Omeprazole 40 mg PO DAILY #30 cap Cholecalciferol [Vitamin D3 (25 Mcg = 1000 Iu)] 50 mcg PO DAILY@1200 Cyanocobalamin [Vitamin B-12] 1,000 mcg PO DAILY@1200 Discharge Medication List Omeprazole 20 mg PO DAILY PRN 07/02/16 [History] Etanercept [Enbrel] 50 mg SQ WE 05/16/18 [History] predniSONE 5 mg PO DAILY 08/28/20 [History] Furosemide [Lasix] 20 mg PO DAILY 04/14/21 [History] Potassium Chloride [Klor-Con 10 ER] 10 meq PO DAILY@1700 04/14/21 [History] Ranolazine [Ranolazine ER] 500 mg PO Q12HR 12/25/21 [History] Aspirin EC [Ecotrin Low Dose] 81 mg PO DAILY 09/17/22 [History] Levothyroxine Sodium [Synthroid] 75 mcg PO DAILY 09/17/22 [History] tadalafiL 10 mg PO DAILY 09/17/22 [History] Loperamide [Imodium] 2 mg PO QID PRN 10/11/22 [History] Acetaminophen Tab [Tylenol] 650 mg PO Q6HR PRN tab 10/21/22 [Rx] Atorvastatin [Lipitor] 10 mg PO HS tab 10/21/22 [Rx] DULoxetine HCL [Cymbalta] 20 mg PO DAILY cap 10/21/22 [Rx] Ferrous Sulfate [Iron (65 MG Elemental)] 325 mg PO BID-W/MEALS tab 10/21/22 [Rx] Omeprazole 40 mg PO DAILY #30 cap 10/21/22 [Rx] Cholecalciferol [Vitamin D3 (25 Mcg = 1000 Iu)] 50 mcg PO DAILY@1200 11/26/22 [History] Cyanocobalamin [Vitamin B-12] 1,000 mcg PO DAILY@1200 11/26/22 [History] Metoprolol Tartrate [Lopressor] 12.5 mg PO BID 11/26/22 [History] amLODIPine [Norvasc] 2.5 mg PO BID #180 tablet 11/28/22 [Rx] Follow up Appointment(s)/Referral(s): Issac Olivia MD [Primary Care Provider] - 3 Days Lilia Ewing MD [REFERRING] - 1 Week Marianna Sequeira MD [STAFF PHYSICIAN] - 1 Week Activity/Diet/Wound Care/Special Instructions: Follow-up with Dr. Aziza Ewing as outpatient Hospitalist neurologist recommended patient to have EEG and MRI as outpatient as she had rheumatic head injury on the left occipital. Also diabetic diet/cardiac diet Also to see her web machine tender Dr. Mckeon for follow-up.
[2022-11-28 14:57] VITALS: BP 120/63; PULSE 57; TEMP 99.3
--- NOTE | 2022-11-28 16:16 | P.PN ---
Subjective Progress Note Date: 11/28/22 The patient is seen at bedside and is accompanied by her who is at bedside and patient feels is doing well. Her did verify that she had a syncopal episode at home. Objective - Vital Signs Vital signs: Vital Signs Temp 98.1 F 11/28/22 07:00 Pulse 59 L 11/28/22 07:00 Resp 14 11/28/22 07:00 BP 144/62 11/28/22 07:00 Pulse Ox 97 11/28/22 07:00 FiO2 Intake & Output 11/27/22 11/28/22 11/28/22 18:59 06:59 18:59 Intake Total 148 118 Balance 148 118 Weight 49.442 kg Intake: Oral 148 118 Other: Voiding Method Toilet Diaper Incontinent # Voids 3 1 - Exam Neuro: Limited because of her cooperation. She was sleeping and upon waking her up. She was oriented to self and stated she was in hospital but did not know name. She could not tell me year. She is able to name objects. No facial weakness. No dysarthria. Has severe hard of hearing. Strength: Lifting bilateral above gravity. Some of the workup during this hospitalization consisted of: Orthostatic vitals is supine blood pressure 126/56 with a heart rate 73, sitting is 109/57 with a heart rate 63 and the standing is 97/66 with a heart rate of 69. Her heart rate has been in the range of 50s to 60s TSH is 6.5 to Free T4 is 1.08 Hemoglobin A1c is 5.5 HbAc: 5.5 Calcium is 8.7. She has not had any hypoglycemic event that. CT of the head is reported as mild hydrocephalus remains unchanged from my 04/15/2021. 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 Correlate to exclude a component of NPH. Call phone burden of chronic small vessel ischemic disease. There is a left parietal scalp hematoma but without any acute intracranial abnormality seen. I personally reviewed the CT of the degree with the report CT cervical spine: Is reported as mild to moderate multilevel spondylitic changes of the cervical spine. Degenerative grade 1 spondylolysis C4-T1 levels. No acute fracture seen of the cervical spine. Note a dilated and that debris felt thoracic suffered guess partially seen. Correlate to exclude a lower esophageal obstruction or severe gastroesophageal reflux disease Stool ocult is positive. 2D Echo: Is reported as left ventricular hypertrophy. Prominent septal bulge. Preserved left ventricle systolic function. 2+ aortic regurgitation. - Labs CBC & Chem 7: 11/27/22 06:19 11/27/22 06:19 Labs: Abnormal Lab Results - Last 24 Hours (Table) 11/27/22 11/27/22 11/27/22 Range/Units 17:20 19:00 20:45 POC Glucose (mg/dL) 154 H 151 H (70-110) mg/dL Stool Occult Blood Positive H (Negative) Assessment and Plan Assessment: This is an 87-year-old woman who had a syncopal episode on home. Syncopal episode unknown cause. Stated it was brief and denies any jerking extremities, urinary or bowel incontinence. History of syncopal episode and had a similar presentation about a couple weeks ago ?Possible lower espophaeal obstruction or severe GERD on CTA +occult blood test concerning for ?GI bleed. Reported history memory impairement History of bilateral carotid endarectomy >20 years ago History of right breast cancer post radiation with paritial right masstecomy in late Chronic lower back pain s/p laminectomy and abalation History of falls DM Rheumatoid arthritis Hypothyroidism Remote history of tobacco use Plan: Recommend a routine EEG as well as MRI of the brain but the patient refuses to be here and she was to be discharged. MRI Brain will not be completed on this Tuesday because of holiday. Her is in agreement with patient. The EEG will not be completed until this Tuesday. Recommend repeat orthostatics. Regarding this questionable mild hydrocephalus that seems unchanged since April 2021 and it seems secondary due to central cerebral atrophy. I cannot exclude the normal pressure hydrocephalus and recommend the patient to follow-up with a neurologist and neurosurgeon as an outpatient for consideration of a large volume tap and there is improvement in her walk-in then consider OPERATIONS MANAGEMENT TRAINEE shunt. 2D Echo: Is reported as left ventricular hypertrophy. Prominent septal bulge. Preserved left ventricle systolic function. 2+ aortic regurgitation. cardiology team is on board Regarding ?esophageal obstruction vs GERD and positive occult blood will defer work-up and management to primary team. Will defer the rest of the medical medical the primary team Patient wants to be discharged and does not want to wait for further testing and is in agreement. The plan was discussed with the patient, her who is at bedside and her nurse. Dr. Rosa will start neurology service tomorrow A.M. Time with Patient: Less than 30
[2022-12-01] MEDS ORDERED: NON FORMULARY DRUG (Etanercept [Enbrel] 50 MG/ML Syringe) SQ SCH (17:39)
== END 2022-11-28 15:41 | disposition home or self-care (01) ==
LOC: EC 13:57 → 6NMEDSUR 16:43
PROVIDERS: ADMIT Internal Medicine; ATTEND Internal Medicine
DX: S01.01XA Laceration without foreign body of scalp, initial encounter (principal); W19.XXXA Unspecified fall, initial encounter; R55 Syncope and collapse; I95.9 Hypotension, unspecified; R53.1 Weakness; R41.3 Other amnesia; R01.1 Cardiac murmur, unspecified; F32.A Depression, unspecified; E78.5 Hyperlipidemia, unspecified; E55.9 Vitamin D deficiency, unspecified; E03.9 Hypothyroidism, unspecified; K22.70 Barrett's esophagus without dysplasia; K21.9 Gastro-esophageal reflux disease without esophagitis; M06.9 Rheumatoid arthritis, unspecified; E11.9 Type 2 diabetes mellitus without complications; Z90.49 Acquired absence of other specified parts of digestive tract; Z98.51 Tubal ligation status; Z98.42 Cataract extraction status, left eye; Z98.41 Cataract extraction status, right eye; Z90.11 Acquired absence of right breast and nipple; Z87.891 Personal history of nicotine dependence; Z80.9 Family history of malignant neoplasm, unspecified; Z83.2 Family history of diseases of the blood and blood-forming organs and certain disorders involving the immune mechanism; Z79.82 Long term (current) use of aspirin; Z79.890 Hormone replacement therapy; Z79.899 Other long term (current) drug therapy; Z88.0 Allergy status to penicillin; Z91.09 Other allergy status, other than to drugs and biological substances
CPT/HCPCS: 96361 ×2; 96360; 96372; 99285; 36415; 94760; 93005; 93306; 84439; 80053; 80048; 84443; 83540; 83550; 83735; 84484; 85025 ×2; 85610; 85730; 82272; 81003; 83036; 71046; 72125; 70450; G0378 ×3; J2001; J7512 ×2

== ENCOUNTER 2023-06-08 15:20 | Emergency (ER) | payer MEDICARE ==
[2023-06-08] MEDS ORDERED: MORPHINE SULFATE 4 MG/ML SYRINGE IM STA (16:50)
[2023-06-08] MEDS ORDERED: ACET/COD 300 MG/30 MG STARTER PACK 6 TAB BTL PO STA (19:07)
[2023-06-08] MEDS ORDERED: MORPHINE SULFATE 2 MG/ML SYRINGE IM STA (19:07)
--- NOTE | 2023-06-08 19:10 | ED ---
Back Pain HPI - General Chief Complaint: Back Pain/Injury Stated Complaint: Back Pain Time Seen by Provider: 06/08/23 15:34 Source: patient Limitations: no limitations - History of Present Illness Initial Comments: 88 year old female presenting to the ED with a chief complaint of back pain. Per patient's family this is a chronic issue. Was seen at [facility] yesterday and had a computed tomography scan performed that showed compression deformity of T12. Eron controlled yesterday however today states pain uncontrolled. Reportedly was told by her orthopedic surgeon, Dr. Rocha, a good surgical candidate and was also told by her rn flight Dr. Ruiz, that she is not a good surgical candidate. Therefore, family reports that they would just like pain control provided for the patient. Patient denies incontinence or saddle anesthesia. No other complaints. - Related Data Home Medications Medication Instructions Recorded Confirmed Omeprazole 20 mg PO DAILY PRN 07/02/16 11/26/22 Etanercept [Enbrel] 50 mg SQ WE 05/16/18 11/26/22 predniSONE 5 mg PO DAILY 08/28/20 11/26/22 Furosemide [Lasix] 20 mg PO DAILY 04/14/21 11/28/22 Potassium Chloride [Klor-Con 10 ER] 10 meq PO DAILY@1700 04/14/21 11/26/22 Ranolazine [Ranolazine ER] 500 mg PO Q12HR 12/25/21 11/26/22 Aspirin EC [Ecotrin Low Dose] 81 mg PO DAILY 09/17/22 11/26/22 Levothyroxine Sodium [Synthroid] 75 mcg PO DAILY 09/17/22 11/26/22 tadalafiL 10 mg PO DAILY 09/17/22 11/26/22 Loperamide [Imodium] 2 mg PO QID PRN 10/11/22 11/26/22 Cholecalciferol [Vitamin D3 (25 50 mcg PO DAILY@1200 11/26/22 11/26/22 Mcg = 1000 Iu)] Cyanocobalamin [Vitamin B-12] 1,000 mcg PO DAILY@1200 11/26/22 11/26/22 Metoprolol Tartrate [Lopressor] 12.5 mg PO BID 11/26/22 11/26/22 Previous Rx's Medication Instructions Recorded Acetaminophen Tab [Tylenol] 650 mg PO Q6HR PRN tab 10/21/22 Atorvastatin [Lipitor] 10 mg PO HS tab 10/21/22 DULoxetine HCL [Cymbalta] 20 mg PO DAILY cap 10/21/22 Ferrous Sulfate [Iron (65 MG 325 mg PO BID-W/MEALS tab 10/21/22 Elemental)] Omeprazole 40 mg PO DAILY #30 cap 10/21/22 amLODIPine [Norvasc] 2.5 mg PO BID #180 tablet 11/28/22 HYDROcodone/APAP 7.5-325MG [[place] 1 tab PO Q6HR PRN 3 Days #12 tab 06/08/23 7.5-325] Allergies Allergy/AdvReac Type Severity Reaction Status Date / Time adhesive tape Allergy Rash/Hives Verified 06/08/23 15:30 Penicillins Allergy Rash/Hives Verified 06/08/23 15:30 Review of Systems ROS Statement: Those systems with pertinent positive or pertinent negative responses have been documented in the HPI. ROS Other: All systems not noted in ROS Statement are negative. Past Medical History Past Medical History: Cancer, Diabetes Mellitus, GERD/Reflux, Hyperlipidemia, Hypertension, Memory Impairment, Rheumatoid Arthritis (RA), Thyroid Disorder Additional Past Medical History / Comment(s): States age related memory impairment. 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 Hx right breast cancer had a lumpectomy and radiaiton tx,, aortic aneurysm(sx done). per [facility] "leaky heart valve", bowel obstruction with no sx, just colonoscopy and egd done. History of Any Multi-Drug Resistant Organisms: None Reported Past Surgical History: Appendectomy, Back Surgery, Breast Surgery, Heart Cathet erization, Tonsillectomy, Tubal Ligation Additional Past Surgical History / Comment(s): Surgery for arortic aneurysm, surgery on toes of bilateral feet, ablation done on back X2, had uvula removed.lt carpal tunnel release, beverly cataracts, beverly carotid endarterectomy, partial rt mastectomy. colonoscopy/egd/esophgeal dilations, laminectomy/past pain clinic procedures, bunionectomy beverly feet. Past Anesthesia/Blood Transfusion Reactions: No Reported Reaction Past Psychological History: No Psychological Hx Reported Smoking Status: Former smoker Past Alcohol Use History: Rare Past Drug Use History: None Reported - Past Family History Sister(s) Family Medical History: Cancer Additional Family Medical History / Comment(s): Aneurysm. States 3 of her sisters had cancer. Father Additional Family Medical History / Comment(s): Anerysym Mother Additional Family Medical History / Comment(s): Aneurysm Brother(s) Additional Family Medical History / Comment(s): Aneurysm General Exam Limitations: no limitations General appearance: alert, in no apparent distress Neck exam: Present: normal inspection Respiratory exam: Present: normal lung sounds bilaterally Cardiovascular Exam: Present: regular rate, normal rhythm GI/Abdominal exam: Present: soft Extremities exam: Present: other (Strength and Sensation equal and intact of bilateral upper and lower extremities.) Back exam: Present: other (Patient has 2 lidocaine patches on the midline of her back. Tenderness to palpation lower thoracic/upper lumbar region.) Neurological exam: Present: alert, oriented X3 Skin exam: Present: warm, dry Course Vital Signs 06/08/23 06/08/23 15:25 17:00 Temperature 98.7 F Pulse Rate 65 70 Respiratory 18 18 Rate Blood Pressure 193/79 186/70 O2 Sat by Pulse 96 97 Oximetry Medical Decision Making - Medical Decision Making Was pt. sent in by a medical professional or institution (, PA, POWERHOUSE ELECTRICIAN, urgent care, hospital, or senior care...) When possible be specific @ -No Did you speak to anyone other than the patient for history (EMS, parent, family, police, friend...)? What history was obtained from this source @ -Spoke To both patient and family. For further details please see HPI. Did you review nursing and triage notes (agree or disagree)? Why? @ -I reviewed and agree with nursing and triage notes Were old charts reviewed (outside hosp., previous admission, EMS record, old EKG, old radiological studies, urgent care reports/EKG's, senior care records)? Report findings @ -No old charts were reviewed Differential Diagnosis (chest pain, altered mental status, abdominal pain women, abdominal pain men, vaginal bleeding, weakness, fever, dyspnea, syncope, headache, dizziness, GI bleed, back pain, seizure, CVA, palpatations, mental he alth, musculoskeletal)? @ -Differential Back Pain: Strain, zoster, cauda equina syndrome, epidural abscess, vertebral osteomyelitis, discitis, fracture, subluxation, disc herniation, DJD, spinal stenosis, dissection, AAA, pancreatitis, peptic ulcer disease, pyelonephritis, kidney stone, this is not meant to be an all-inclusive list. EKG interpreted by me (3pts min.). @ -As above X-rays interpreted by me (1pt min.). @ -None done CT interpreted by me (1pt min.). @ -None done U/S interpreted by me (1pt. min.). @ -None done What testing was considered but not performed or refused? (CT, X-rays, U/S, labs)? Why? @ -None What meds were considered but not given or refused? Why? @ -None Did you discuss the management of the patient with other professionals (professionals i.e. , PA, POWERHOUSE ELECTRICIAN, lab, RT, psych nurse, licensed master social worker, obstetrics teacher, teacher, customs patrol officer, geriatric case manager)? Give summary @ -No Was smoking cessation discussed for >3mins.? @ -No Was critical care preformed (if so, how long)? @ -No Were there social determinants of health that impacted care today? How? (Homelessness, low income, unemployed, alcoholism, drug addiction, transportation, low edu. Level, literacy, decrease access to med. care, usp, rehab)? @ -No Was there de-escalation of care discussed even if they declined (Discuss DNR or withdrawal of care, Hospice)? DNR status @ -No What co-morbidities impacted this encounter? (DM, HTN, Smoking, COPD, CAD, Cancer, CVA, ARF, Chemo, Hep., AIDS, mental health diagnosis, sleep apnea, morbid obesity)? @ -None Was patient admitted / discharged? Hospital course, mention meds given and route, prescriptions, significant lab abnormalities, going to OR and other pertinent info. @ -Discharge 88-year-old female with a history of chronic back pain and CT performed yesterday showing compression deformity at T12 presenting to the ED with complaints of back pain. Attempt was made to contact [facility] for records however at this time had not received records yet. Was to discuss findings with Dr. Rocha, her orthopedic surgeon, however at this time patient is pain is well controlled and patient would like to go home. Patient discharged home in stable condition with prescription for [place] and instructed follow-up with her orthopedic surgeon. Discussed return precautions with patient and family who verbalizes agreement. Undiagnosed new problem with uncertain prognosis? @ -No Drug Therapy requiring intensive monitoring for toxicity (Heparin, Nitro, Insulin, Cardizem)? @ -No Were any procedures done? @ -No Diagnosis/symptom? @ -Back pain Acute, or Chronic, or Acute on Chronic? @ -Acute on chronic Uncomplicated (without systemic symptoms) or Complicated (systemic symptoms)? @ -Uncomplicated Side effects of treatment? @ -No Exacerbation, Progression, or Severe Exacerbation? @ -No Poses a threat to life or bodily function? How? (Chest pain, USA, OR, pneumonia, PE, COPD, DKA, ARF, appy, cholecystitis, CVA, Diverticulitis, Homicidal, Suicidal, threat to staff... and all critical care pts) @ -No Disposition Clinical Impression: Back pain Disposition: HOME SELF-CARE Condition: Good Instructions (If sedation given, give patient instructions): Acute Low Back Pain (ED) Additional Instructions: Please return to the Emergency Department if symptoms worsen or any other concerns. Follow up with your orthopedic surgeon. Prescriptions: HYDROcodone/APAP 7.5-325MG [[place] 7.5-325] 1 tab PO Q6HR PRN 3 Days #12 tab PRN Reason: Pain Is patient prescribed a controlled substance at d/c from ED?: Yes When asked, does pt state using other controlled substances?: No If prescribed controlled substance>3 days was MAPS reviewed?: Prescribed <3 Days If opioid is for acute pain is fill amount 7 days or less?: Yes Referrals: Issac Olivia MD [Primary Care Provider] - 1-2 days Time of Disposition: 19:16
[2023-06-08 20:13] VITALS: BP 178/72; PULSE 68; RESP 17; TEMP 98.6
== END 2023-06-08 19:50 | disposition home or self-care (01) ==
LOC: EC 15:20
DX: M54.9 Dorsalgia, unspecified (principal); E11.9 Type 2 diabetes mellitus without complications; K21.9 Gastro-esophageal reflux disease without esophagitis; I10 Essential (primary) hypertension; E07.9 Disorder of thyroid, unspecified; Z87.891 Personal history of nicotine dependence; Z79.890 Hormone replacement therapy; Z79.82 Long term (current) use of aspirin; Z79.899 Other long term (current) drug therapy; Z91.09 Other allergy status, other than to drugs and biological substances; Z88.0 Allergy status to penicillin
CPT/HCPCS: 99284; 96372 ×2; J2270 ×2

== ENCOUNTER 2023-07-13 04:03 | Emergency (ER) | payer MEDICARE ==
[2023-07-13 04:47] VITALS: TEMP 97.8
[2023-07-13] MEDS ORDERED: LABETALOL 5 MG/ML VIAL MDV IVP STA (04:47)
[2023-07-13 05:31] LABS: Basophils # (A) 0.1 k/uL (0-0.2); Basophils % (A) 1 %; Eosinophils # (A) 0.1 k/uL (0-0.7); Eosinophils % (A) 2 %; HCT 40.7 % (34.0-46.0); HGB 13.7 gm/dL (11.4-16.0); Lymphocytes # (A) 2.9 k/uL (1.0-4.8); Lymphocytes % (A) 30 %; MCH 32.3 pg (25.0-35.0); MCHC 33.7 g/dL (31.0-37.0); MCV 95.7 fL (80.0-100.0); Mean Platelet Volume 8.7; Monocytes # (A) 0.5 k/uL (0-1.0); Monocytes % (A) 6 %; Neutrophils # (A) 5.6 k/uL (1.3-7.7); Neutrophils % (A) 60 %; Platelet Count 111 k/uL (150-450); RBC 4.25 m/uL (3.80-5.40); RDW 14.4 % (11.5-15.5); WBC 9.4 k/uL (3.8-10.6)
[2023-07-13 05:40] LABS: ALT 14 U/L (4-34); AST 31 U/L (14-36); African American GFR (CKD) 61 (>60 ml/min/1.73 sqM); Albumin 4.2 g/dL (3.5-5.0); Alkaline Phosphatase 60 U/L (38-126); Amylase 72 U/L (30-110); Anion Gap 11 mmol/L; Blood Urea Nitrogen 33 mg/dL (7-17); Calcium 10.6 mg/dL (8.4-10.2); Carbon Dioxide 25 mmol/L (22-30); Chloride 101 mmol/L (98-107); Glucose 117 mg/dL (74-99); Lipase 118 U/L (23-300); Non-African American GFR(CKD) 53 (>60 ml/min/1.73 sqM); Sodium 137 mmol/L (137-145); Total Bilirubin 0.9 mg/dL (0.2-1.3)
[2023-07-13 05:43] LABS: Potassium 4.7 mmol/L (3.5-5.1)
--- NOTE | 2023-07-13 06:56 | XR ---
EXAMINATION TYPE: XR KUB DATE OF EXAM: 07/13/2023 COMPARISON: None INDICATION: Diarrhea, history of bowel obstruction TECHNIQUE: Single view abdomen spine view FINDINGS: There is a nonspecific bowel gas pattern. There appears to be predominantly within the colon. Psoas margins are normal. No organomegaly is present. IMPRESSION: 1. Nonspecific abdomen.
--- NOTE | 2023-07-13 07:04 | CT ---
EXAMINATION TYPE: CT abdomen pelvis wo con DATE OF EXAM: 07/13/2023 COMPARISON: 10/11/2022 INDICATION: Abdominal pain, diarrhea DLP: 362.9 mGycm, Automated exposure control for dose reduction was used. CONTRAST: 0 mL of Isovue 300. Study performed without Oral Contrast TECHNIQUE: Axial images were obtained from above the diaphragm to the pubic rami in the axial plane a t 5 mm thick sections. Reconstructed images are reviewed on the computer in the coronal plane. FINDINGS: Limited CT sections are obtained the lung bases. The lung bases are clear. There is a moderate size hiatal hernia present. CT ABDOMEN: There is an anterior abdominal wall hernia right upper quadrant with an open the 1.6 cm. This contains mesenteric fat. No loops of bowel are involved. Liver: Normal Spleen: Normal Pancreas: Normal Adrenal glands: The adrenal glands are normal. Gallbladder: Normal Kidneys: No masses are evident. No hydronephrosis is present. No cysts are present. Small vascular calcification may be at the right renal hilum. Vascular calcification is present in the left renal h ilum Aorta: Vascular calcification is within the aorta. There is fusiform prominence of the mid abdominal aorta with AP diameter 2.4 cm previous terminates bifurcation. Inferior vena cava: Normal. CT PELVIS: Loops of bowel within the abdomen and pelvis are normal. This study is not oral contrast limiting bowel evaluation. No suspicious dilated loops of bowel are evident. No fluid filled loops of bowel a re evident. Multiple scattered diverticuli within the sigmoid colon. Appendix: Not visualized. No dilated tubular structures or inflammatory change is evident. Urinary bladder: Normal. Genitourinary structures: Uterus and adnexa appear normal Osseous structures: No suspicious lytic or sclerotic lesions. Scoliosis and degenerative disc changes are within the lumbar spine. IMPRESSION: 1. Diverticulosis without acute diverticulitis. 2. Moderate size hiatal hernia. 3. No suspicious changes to suggest bowel obstruction
--- NOTE | 2023-07-13 07:39 | ED ---
General Adult HPI - General Chief complaint: Recheck/Abnormal Lab/Rx Stated complaint: Diarrhea Time Seen by Provider: 07/13/23 04:32 Source: patient, family, EMS Mode of arrival: EMS Limitations: no limitations - History of Present Illness Initial comments: This patient is a 88-year-old woman who is here to have evaluation for having multiple bowel movements/diarrhea. Symptoms have been going on since this evening. There was concern because patient had similar in association with developing bowel obstruction. Patient has had a little bit of abdominal cramping. No fever or chills. No nausea/vomiting. No blood or tarry stools. -: hour(s) Location: abdomen Radiation: non-radiation Quality: other (Cramping) Consistency: intermittent Improves with: none Worsens with: none Associated Symptoms: denies other symptoms Treatments Prior to Arrival: none - Related Data Home Medications Medication Instructions Recorded Confirmed Omeprazole 20 mg PO DAILY PRN 07/02/16 11/26/22 Etanercept [Enbrel] 50 mg SQ WE 05/16/18 11/26/22 predniSONE 5 mg PO DAILY 08/28/20 11/26/22 Furosemide [Lasix] 20 mg PO DAILY 04/14/21 11/28/22 Potassium Chloride [Klor-Con 10 ER] 10 meq PO DAILY@1700 04/14/21 11/26/22 Ranolazine [Ranolazine ER] 500 mg PO Q12HR 12/25/21 11/26/22 Aspirin EC [Ecotrin Low Dose] 81 mg PO DAILY 09/17/22 11/26/22 Levothyroxine Sodium [Synthroid] 75 mcg PO DAILY 09/17/22 11/26/22 tadalafiL 10 mg PO DAILY 09/17/22 11/26/22 Loperamide [Imodium] 2 mg PO QID PRN 10/11/22 11/26/22 Cholecalciferol [Vitamin D3 (25 50 mcg PO DAILY@1200 11/26/22 11/26/22 Mcg = 1000 Iu)] Cyanocobalamin [Vitamin B-12] 1,000 mcg PO DAILY@1200 11/26/22 11/26/22 Metoprolol Tartrate [Lopressor] 12.5 mg PO BID 11/26/22 11/26/22 Previous Rx's Medication Instructions Recorded Acetaminophen Tab [Tylenol] 650 mg PO Q6HR PRN tab 04/20/23 Atorvastatin [Lipitor] 10 mg PO HS tab 10/21/22 DULoxetine HCL [Cymbalta] 20 mg PO DAILY cap 10/21/22 Ferrous Sulfate [Iron (65 MG 325 mg PO BID-W/MEALS tab 10/21/22 Elemental)] Omeprazole 40 mg PO DAILY #30 cap 10/21/22 amLODIPine [Norvasc] 2.5 mg PO BID #180 tablet 11/28/22 HYDROcodone/APAP 7.5-325MG [[place] 1 tab PO Q6HR PRN 3 Days #12 tab 06/08/23 7.5-325] Allergies Allergy/AdvReac Type Severity Reaction Status Date / Time adhesive tape Allergy Rash/Hives Verified 06/08/23 15:30 Penicillins Allergy Rash/Hives Verified 06/08/23 15:30 Review of Systems ROS Statement: Those systems with pertinent positive or pertinent negative responses have been documented in the HPI. ROS Other: All systems not noted in ROS Statement are negative. Constitutional: Denies: fever, chills Respiratory: Denies: cough, dyspnea Cardiovascular: Denies: chest pain, palpitations, edema Gastrointestinal: Reports: abdominal pain, diarrhea. Denies: vomiting, melena, hematochezia Genitourinary: Denies: dysuria, hematuria Musculoskeletal: Denies: back pain Skin: Denies: rash Neurological: Denies: headache Past Medical History Past Medical History: Cancer, Diabetes Mellitus, GERD/Reflux, Hyperlipidemia, Hypertension, Memory Impairment, Rheumatoid Arthritis (RA), Thyroid Disorder Additional Past Medical History / Comment(s): States age related memory impairment. 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 Hx right breast cancer had a lumpectomy and radiaiton tx,, aortic aneurysm(sx done). per [facility] "leaky heart valve", bowel obstruction with no sx, just colonoscopy and egd done. History of Any Multi-Drug Resistant Organisms: None Reported Past Surgical History: Appendectomy, Back Surgery, Breast Surgery, Heart Catheterization, Tonsillectomy, Tubal Ligation Additional Past Surgical History / Comment(s): Surgery for arortic aneurysm, surgery on toes of bilateral feet, ablation done on back X2, had uvula removed.lt carpal tunnel release, beverly cataracts, beverly carotid endarterectomy, partial rt mastectomy. colonoscopy/egd/esophgeal dilations, laminectomy/past pain clinic procedures, bunionectomy beverly feet. Past Anesthesia/Blood Transfusion Reactions: No Reported Reaction Past Psychological History: No Psychological Hx Reported Smoking Status: Former smoker Past Alcohol Use History: Rare Past Drug Use History: None Reported - Past Family History Sister(s) Family Medical History: Cancer Additional Family Medical History / Comment(s): Aneurysm. States 3 of her sisters had cancer. Father Additional Family Medical History / Comment(s): Anerysym Mother Additional Family Medical History / Comment(s): Aneurysm Brother(s) Additional Family Medical History / Comment(s): Aneurysm General Exam Limitations: no limitations General appearance: alert, in no apparent distress Head exam: Present: atraumatic, normocephalic Eye exam: Present: normal appearance. Absent: scleral icterus, conjunctival injection ENT exam: Present: normal oropharynx Neck exam: Present: normal inspection Respiratory exam: Present: normal lung sounds bilaterally. Absent: respiratory distress, wheezes, rales, rhonchi, stridor Cardiovascular Exam: Present: regular rate, normal rhythm, normal heart sounds. Absent: systolic murmur, diastolic murmur, rubs, gallop GI/Abdominal exam: Present: soft. Absent: distended, tenderness, guarding, rebound, rigid, mass, pulsatile mass, hernia Extremities exam: Present: normal inspection, normal capillary refill. Absent: pedal edema, calf tenderness Back exam: Present: normal inspection. Absent: CVA tenderness (R), CVA tenderness (L) Neurological exam: Present: alert Skin exam: Present: warm, dry, intact, normal color. Absent: rash Course Vital Signs 07/13/23 07/13/23 07/13/23 04:38 05:30 06:22 Temperature 97.8 F Pulse Rate 68 72 82 Respiratory 16 16 16 Rate Blood Pressure 201/108 175/73 170/64 O2 Sat by Pulse 99 99 98 Oximetry 07/13/23 07:45 Temperature Pulse Rate 61 Respiratory 18 Rate Blood Pressure 163/70 O2 Sat by Pulse 94 L Oximetry Medical Decision Making - Medical Decision Making Patient had KUB x-ray which I interpreted to show no evidence of free air or obstruction The patient had computed tomography scan of the abdomen and pelvis which by my interpretation does not show evidence of free air or bowel obstruction. Was pt. sent in by a medical professional or institution ([facility] Vang, MANAGER LAB, urgent care, hospital, or detention...) When possible be specific @ -[No] Did you speak to anyone other than the patient for history (EMS, parent, family, police, friend...)? What history was obtained from this source @ -[No] Did you review nursing and triage notes (agree or disagree)? Why? @ -[I reviewed and agree with nursing and triage notes] Were old charts reviewed (outside hosp., previous admission, EMS record, old EKG, old radiological studies, urgent care reports/EKG's, detention records)? Report findings @ -[No old charts were reviewed] Differential Diagnosis (chest pain, altered mental status, abdominal pain women, abdominal pain men, vaginal bleeding, weakness, fever, dyspnea, syncope, headache, dizziness, GI bleed, back pain, seizure, CVA, palpatations, mental health, musculoskeletal)? @ -[Differential Abdominal Pain Women: Appendicitis, Cholecystitis, diverticulosis, ischemic bowel, pancreatitis, hepatitis, UTI, gastroenteritis, AAA, incarcerated hernia, bowel obstruction, constipation, inflammatory bowel, hepatitis, peptic ulcer disease, splenic in farction, perforated viscus, vulvitis, ovarian torsion, PID, kidney stone, placenta abruption, this is not meant to be an all-inclusive list EKG interpreted by me (3pts min.). @ -[As above] X-rays interpreted by me (1pt min.). @ -[I interpreted as above CT interpreted by me (1pt min.). @ -[I interpreted as above U/S interpreted by me (1pt. min.). @ -[None done] What testing was considered but not performed or refused? (CT, X-rays, U/S, labs)? Why? @ -[None] What meds were considered but not given or refused? Why? @ -[None] Did you discuss the management of the patient with other professionals (professionals i.e. KENNY Vang, MANAGER LAB, lab, RT, psych nurse, social service technician, turnaround planner, teacher, commanding officer garage, lining caser)? Give summary @ -[No] Was smoking cessation discussed for >3mins.? @ -[No] Was critical care preformed (if so, how long)? @ -[No] Were there social determinants of health that impacted care today? How? (Homelessness, low income, unemployed, alcoholism, drug addiction, transportation, low edu. Level, literacy, decrease access to med. care, fpc, rehab)? @ -[No] Was there de-escalation of care discussed even if they declined (Discuss DNR or withdrawal of care, Hospice)? DNR status @ -[No] What co-morbidities impacted this encounter? (DM, HTN, Smoking, COPD, CAD, Cancer, CVA, ARF, Chemo, Hep., AIDS, mental health diagnosis, sleep apnea, morbi d obesity)? @ -[None] Was patient admitted / discharged? Hospital course, mention meds given and route, prescriptions, significant lab abnormalities, going to OR and other pertinent info. @ -[Patient is a 88-year-old woman here with concerns about developing obstruction. There is no current evidence of obstruction or other surgical condition. We did want to send stool for C. difficile but patient not able to provide specimen. Discussed appropriate further care and follow-up as well as return parameters. Undiagnosed new problem with uncertain prognosis? @ -[No] Drug Therapy requiring intensive monitoring for toxicity (Heparin, Nitro, Insulin, Cardizem)? @ -[No] Were any procedures done? @ -[No] Diagnosis/symptom? @ -[Acute diarrhea Acute, or Chronic, or Acute on Chronic? @ -Acute Uncomplicated (without systemic symptoms) or Complicated (systemic symptoms)? @ -[Uncomplicated Side effects of treatment? @ -[No] Exacerbation, Progression, or Severe Exacerbation? @ -[No] Poses a threat to life or bodily function? How? (Chest pain, [place], [place], pneumonia, PE, COPD, DKA, ARF, appy, cholecystitis, CVA, Diverticulitis, Homicidal, Suicidal, threat to staff... and all critical care pts) @ -[No] - Lab Data Result diagrams: 07/13/23 04:44 07/13/23 04:44 Lab Results 07/13/23 07/13/23 Range/Units 04:44 04:44 WBC 9.4 (3.8-10.6) k/uL RBC 4.25 (3.80-5.40) m/uL Hgb 13.7 (11.4-16.0) gm/dL Hct 40.7 (34.0-46.0) % MCV 95.7 (80.0-100.0) fL MCH 32.3 (25.0-35.0) pg MCHC 33.7 (31.0-37.0) g/dL RDW 14.4 (11.5-15.5) % Plt Count 111 L (150-450) k/uL MPV 8.7 Neutrophils % 60 % Lymphocytes % 30 % Monocytes % 6 % Eosinophils % 2 % Basophils % 1 % Neutrophils # 5.6 (1.3-7.7) k/uL Lymphocytes # 2.9 (1.0-4.8) k/uL Monocytes # 0.5 (0-1.0) k/uL Eosinophils # 0.1 (0-0.7) k/uL Basophils # 0.1 (0-0.2) k/uL Sodium 137 (137-145) mmol/L Potassium 4.7 (3.5-5.1) mmol/L Chloride 101 (98-107) mmol/L Carbon Dioxide 25 (22-30) mmol/L Anion Gap 11 mmol/L BUN 33 H (7-17) mg/dL Creatinine 0.97 (0.52-1.04) mg/dL Est GFR (CKD-EPI)AfAm 61 (>60 ml/min/1.73 sqM) Est GFR (CKD-EPI)NonAf 53 (>60 ml/min/1.73 sqM) Glucose 117 H (74-99) mg/dL Calcium 10.6 H (8.4-10.2) mg/dL Total Bilirubin 0.9 (0.2-1.3) mg/dL AST 31 (14-36) U/L ALT 14 (4-34) U/L Alkaline Phosphatase 60 (38-126) U/L Total Protein 7.0 (6.3-8.2) g/dL Albumin 4.2 (3.5-5.0) g/dL Amylase 72 (30-110) U/L Lipase 118 (23-300) U/L Disposition Clinical Impression: Acute diarrhea Disposition: HOME SELF-CARE Condition: Good Instructions (If sedation given, give patient instructions): Acute Diarrhea (ED) Is patient prescribed a controlled substance at d/c from ED?: No Referrals: Issac Olivia MD [Primary Care Provider] - 1-2 days
[2023-07-13 07:52] VITALS: BP 163/70; PULSE 61; RESP 18
== END 2023-07-13 08:04 | disposition home or self-care (01) ==
LOC: EC 04:03
DX: K44.9 Diaphragmatic hernia without obstruction or gangrene (principal); E11.9 Type 2 diabetes mellitus without complications; K21.9 Gastro-esophageal reflux disease without esophagitis; I10 Essential (primary) hypertension; E07.9 Disorder of thyroid, unspecified; Z87.891 Personal history of nicotine dependence; Z79.890 Hormone replacement therapy; Z79.82 Long term (current) use of aspirin; Z79.899 Other long term (current) drug therapy; Z91.09 Other allergy status, other than to drugs and biological substances; Z88.0 Allergy status to penicillin
CPT/HCPCS: 36415; 80053; 82150; 83690; 85025; 74018; 74176; 99284; 96374; J1920

== ENCOUNTER 2024-06-15 17:20 | Emergency (ER) | payer MEDICARE ==
[2024-06-15 17:34] VITALS: RESP 18; TEMP 98.1
--- NOTE | 2024-06-15 17:54 | ED ---
General Adult HPI - General Chief complaint: Fall Stated complaint: Fall/has dementia Time Seen by Provider: 06/15/24 17:30 Source: patient, family, RN notes reviewed, old records reviewed Mode of arrival: EMS Limitations: altered mental status - History of Present Illness Initial comments: This is an 89-year-old female who was just getting done eating and got up to walk over to another chair with her and her was holding her up with a strap and she just got too weak and fell to the ground when she went to the ground she hit her knee on the wall and has a skin tear on the lateral aspect of the right knee has a small skin tear on the aspect of the medial wrist on the right. Patient's states she did not hit her head or neck and did not hit her upper extremities and he felt that she went down fairly softly and onto carpet. Is unable to give any history secondary to her significant dementia - Related Data Home Medications Medication Instructions Recorded Confirmed Omeprazole 20 mg PO DAILY PRN 07/02/16 11/26/22 Etanercept [Enbrel] 50 mg SQ WE 05/16/18 11/26/22 predniSONE 5 mg PO DAILY 08/28/20 11/26/22 Furosemide [Lasix] 20 mg PO DAILY 04/14/21 11/28/22 Potassium Chloride [Klor-Con 10 ER] 10 meq PO DAILY@1700 04/14/21 11/26/22 Ranolazine [Ranolazine ER] 500 mg PO Q12HR 12/25/21 11/26/22 Aspirin EC [Ecotrin Low Dose] 81 mg PO DAILY 09/17/22 11/26/22 Levothyroxine Sodium [Synthroid] 75 mcg PO DAILY 09/17/22 11/26/22 tadalafiL 10 mg PO DAILY 09/17/22 11/26/22 Loperamide [Imodium] 2 mg PO QID PRN 10/11/22 11/26/22 Cholecalciferol [Vitamin D3 (25 50 mcg PO DAILY@1200 11/26/22 11/26/22 Mcg = 1000 Iu)] Cyanocobalamin [Vitamin B-12] 1,000 mcg PO DAILY@1200 11/26/22 11/26/22 Metoprolol Tartrate [Lopressor] 12.5 mg PO BID 11/26/22 11/26/22 Previous Rx's Medication Instructions Recorded Acetaminophen Tab [Tylenol] 650 mg PO Q6HR PRN tab 10/21/22 Atorvastatin [Lipitor] 10 mg PO HS tab 10/21/22 DULoxetine HCL [Cymbalta] 20 mg PO DAILY cap 10/21/22 Ferrous Sulfate [Iron (65 MG 325 mg PO BID-W/MEALS tab 10/21/22 Elemental)] Omeprazole 40 mg PO DAILY #30 cap 10/21/22 amLODIPine [Norvasc] 2.5 mg PO BID #180 tablet 11/28/22 HYDROcodone/APAP 7.5-325MG [[place] 1 tab PO Q6HR PRN 3 Days #12 tab 06/08/23 7.5-325] Allergies Allergy/AdvReac Type Severity Reaction Status Date / Time adhesive tape Allergy Rash/Hives Verified 06/15/24 17:34 Penicillins Allergy Rash/Hives Verified 06/15/24 17:34 Review of Systems ROS Statement: Those systems with pertinent positive or pertinent negative responses have been documented in the HPI. ROS Other: All systems not noted in ROS Statement are negative. Past Medical History Past Medical History: Cancer, Heart Failure, Diabetes Mellitus, GERD/Reflux, Hyperlipidemia, Hypertension, Memory Impairment, Rheumatoid Arthritis (RA), Thyroid Disorder Additional Past Medical History / Comment(s): States age related memory impairment. 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 Hx right breast cancer had a lumpectomy and radiaiton tx,, aortic aneurysm(sx done). per [facility] "leaky heart valve", bowel obstruction with no sx, just colonoscopy and egd done. History of Any Multi-Drug Resistant Organisms: None Reported Past Surgical History: Appendectomy, Back Surgery, Breast Surgery, Heart Catheterization, Tonsillectomy, Tubal Ligation Additional Past Surgical History / Comment(s): Surgery for arortic aneurysm, surgery on toes of bilateral feet, ablation done on back X2, had uvula removed.lt carpal tunnel release, beverly cataracts, beverly carotid endarterectomy, partial rt mastectomy. colonoscopy/egd/esophgeal dilations, laminectomy/past pain clinic procedures, bunionectomy beverly feet. Past Anesthesia/Blood Transfusion Reactions: No Reported Reaction Past Psychological History: No Psychological Hx Reported, Anxiety, Bipolar, Depression Smoking Status: Former smoker Past Alcohol Use History: None Reported Past Drug Use History: None Reported - Past Family History Sister(s) Family Medical History: Cancer Additional Family Medical History / Comment(s): Aneurysm. States 3 of her sisters had cancer. Father Additional Family Medical History / Comment(s): Anerysym Mother Additional Family Medical History / Comment(s): Aneurysm Brother(s) Additional Family Medical History / Comment(s): Aneurysm General Exam - General Exam Comments Initial Comments: GENERAL: Patient is well-developed and well-nourished. Patient is nontoxic and well- hydrated and is in no acute distress. ENT: Neck is soft and supple. No significant lymphadenopathy is noted. Oropharynx is clear. Moist mucous membranes. Neck has full range of motion without eliciting any pain. EYES: The sclera were anicteric and conjunctiva were pink and moist. Extraocular movements were intact and pupils were equal round and reactive to light. Eyelids were unremarkable. PULMONARY: Unlabored respirations. Good breath sounds bilaterally. No audible rales rhonchi or wheezing was noted. CARDIOVASCULAR: There is a regular rate and rhythm without any murmurs gallops or rubs. ABDOMEN: Soft and nontender with normal bowel sounds. SKIN: There is a large skin tear to the medial aspect of the right knee it measures about 8 cm in diameter. Patient also has a very small skin tear to the posterior medial aspect of the left wrist measuring about half a centimeter NEUROLOGIC: Patient is alert and oriented x3. Cranial nerves II through XII are grossly intact. Motor and sensory are also intact. Normal speech, volume and content. Symmetrical smile. MUSCULOSKELETAL: Normal extremities with adequate strength and full range of motion. No lower extremity swelling or edema. No calf tenderness. PSYCHIATRIC: Normal psychiatric evaluation. Limitations: altered mental status Course Vital Signs 06/15/24 17:27 Temperature 98.1 F Pulse Rate 55 L Respiratory 18 Rate Blood Pressure 154/83 O2 Sat by Pulse 99 Oximetry Medical Decision Making - Medical Decision Making Was pt. sent in by a medical professional or institution (, [facility], HOSE STRIPPER, urgent care, hospital, or fdc...) When possible be specific @ -No Did you speak to anyone other than the patient for history (EMS, parent, family, police, friend...)? What history was obtained from this source @ -No Did you review nursing and triage notes (agree or disagree)? Why? @ -I reviewed and agree with nursing and triage notes Were old charts reviewed (outside hosp., previous admission, EMS record, old EKG, old radiological studies, urgent care reports/EKG's, fdc records)? Report findings @ -No old charts were reviewed Differential Diagnosis? @ -Differential Musculoskeletal Muscular strain, contusion, ligament sprain, fracture, arthritis, septic arthritis, bursitis, cellulitis, muscle spasm, nerve compression, DVT, arterial occlusion, herpes zoster, electrolyte abnormality, tumor.... This is not meant to be in all inclusive list EKG interpreted by me (3pts min.). @ -As above X-rays interpreted by me (1pt min.). @ -The pelvis x-ray of the knee and x-ray of the wrist showed no acute abnormality CT interpreted by me (1pt min.). @ -None done U/S interpreted by me (1pt. min.). @ -None done What testing was considered but not performed or refused? (CT, X-rays, U/S, labs)? Why? @ -None What meds were considered but not given or refused? Why? @ -None Did you discuss the management of the patient with other professionals (professionals i.e. , PA, HOSE STRIPPER, lab, RT, psych nurse, social media marketing specialist, monotype keyboard operator, teacher, staff air tactical officer, behavioral health case manager)? Give summary @ -No Was smoking cessation discussed for >3mins.? @ -No Was critical care preformed (if so, how long)? @ -No Were there social determinants of health that impacted care today? How? (Homelessness, low income, unemployed, alcoholism, drug addiction, transportation, low edu. Level, literacy, decrease access to med. care, snf, rehab)? @ -No Was there de-escalation of care discussed even if they declined (Discuss DNR or withdrawal of care, Hospice)? DNR status @ -No What co-morbidities impacted this encounter? (DM, HTN, Smoking, COPD, CAD, Cancer, CVA, ARF, Chemo, Hep., AIDS, mental health diagnosis, sleep apnea, morbid obesity)? @ -None Was patient admitted / discharged? Hospital course, mention meds given and route, prescriptions, significant lab abnormalities, going to OR and other pertinent info. @ -I did Dermabond the skin tear on the wrist and the knee. Undiagnosed new problem with uncertain prognosis? @ -No Drug Therapy requiring intensive monitoring for toxicity (Heparin, Nitro, Insulin, Cardizem)? @ -No Were any procedures done? @ -No Diagnosis/symptom? @ -Skin tears Acute, or Chronic, or Acute on Chronic? @ -Acute Uncomplicated (without systemic symptoms) or Complicated (systemic symptoms)? @ -Default Side effects of treatment? @ -No Exacerbation, Progression, or Severe Exacerbation? @ -No Poses a threat to life or bodily function? How? (Chest pain, [place], [place], pneumonia, PE, COPD, DKA, ARF, appy, cholecystitis, CVA, Diverticulitis, Homicidal, Suicidal, threat to staff... and all critical care pts) @ -No Diagnosis/symptom? @ -Fall Acute, or Chronic, or Acute on Chronic? @ -Acute Uncomplicated (without systemic symptoms) or Complicated (systemic symptoms)? @ -Uncomplicated Side effects of treatment? @ -None Exacerbation, Progression, or Severe Exacerbation] @ -No Poses a threat to life or bodily function? @ -No Disposition Clinical Impression: Fall, Skin tear Disposition: HOME SELF-CARE Condition: Good Is patient prescribed a controlled substance at d/c from ED?: No Referrals: Issac Olivia MD [Primary Care Provider] - 1-2 days Time of Disposition: 19:56
--- NOTE | 2024-06-15 18:32 | XR ---
EXAMINATION TYPE: XR knee complete RT DATE OF EXAM: 06/15/2024 6:04 PM COMPARISON: None. CLINICAL INDICATION: Female, 89 years old with history of Fall, pain TECHNIQUE: XR knee complete RT 3 views submitted. FINDINGS: No evidence of any acute osseous pathology, soft tissue swelling, or joint effusion is no aleshia. Tricompartmental osteophyte formation involving the femoral condyles, tibial plateau and patella . Mild joint space narrowing. A fabella is present. Atherosclerosis of the arterial vasculature. IMPRESSION: 1. No acute osseous pathology. 2. Mild tricompartmental osteoarthritic changes. [facility], , 06/15/2024 6:30 PM
--- NOTE | 2024-06-15 18:46 | XR ---
EXAMINATION TYPE: XR wrist complete LT DATE OF EXAM: 06/15/2024 5:58 PM COMPARISON: None CLINICAL INDICATION: Female, 89 years old with history of Fall, pain TECHNIQUE: XR wrist complete LT; examined in the Frontal, navicular, lateral, and oblique. FINDINGS: Severe degeneration changes of the first interphalangeal joint and throughout the joints of the wrist . No acute osseous pathology, joint dislocation, or joint effusion. No evidence of any soft tissue swelling is seen. IMPRESSION: 1. No acute osseous pathology. 2. Mild multiple focal osteoarthrosis. [facility], , 06/15/2024 6:43 PM
--- NOTE | 2024-06-15 18:49 | XR ---
EXAMINATION TYPE: XR pelvis AP view DATE OF EXAM: 06/15/2024 6:04 PM COMPARISON: 12/09/2019 CLINICAL INDICATION: Female, 89 years old with history of Fall; pain TECHNIQUE: XR pelvis AP view, examined in a single projection. FINDINGS: There is no evidence of fracture or dislocation. There is no soft tissue abnormality. No a bnormal calcifications are present. The spine appears intact. The hips appear intact. Osteophyte form ation of the superior acetabulum bilaterally with mild joint space narrowing. This course of the cipriano rial vasculature. Right pelvis/inguinal region surgical clips. IMPRESSION: 1. No acute osseous pathology. 2. Mild degeneration changes of the hip. [facility], , 06/15/2024 6:47 PM
[2024-06-15] MEDS: TOPICAL SKIN ADHESIVE 1 EACH AMP TOPICAL ONE (19:12)
[2024-06-15 20:26] VITALS: BP 140/78; PULSE 74
== END 2024-06-15 20:42 | disposition home or self-care (01) ==
LOC: EC 17:20
DX: S81.011A Laceration without foreign body, right knee, initial encounter (principal); S61.512A Laceration without foreign body of left wrist, initial encounter; Z88.0 Allergy status to penicillin; Z91.09 Other allergy status, other than to drugs and biological substances; Z87.891 Personal history of nicotine dependence; W18.30XA Fall on same level, unspecified, initial encounter
CPT/HCPCS: 12004; 72170; 99283

== ENCOUNTER 2024-06-17 17:18 | Inpatient (IN) | payer MEDICARE ==
[2024-06-17 18:20] LABS: Basophils % (A) 0 %; Eosinophils # (A) 0.1 k/uL (0-0.7); Eosinophils % (A) 1 %; HCT 34.2 % (34.0-46.0); HGB 11.3 gm/dL (11.4-16.0); Lymphocytes # (A) 1.4 k/uL (1.0-4.8); Lymphocytes % (A) 10 %; MCH 32.8 pg (25.0-35.0); MCV 99.6 fL (80.0-100.0); Macrocytosis Slight; Mean Platelet Volume 8.7; Monocytes # (A) 0.7 k/uL (0-1.0); Monocytes % (A) 5 %; Neutrophils # (A) 11.9 k/uL (1.3-7.7); Neutrophils % (A) 84 %; RBC 3.43 m/uL (3.80-5.40); RDW 14.7 % (11.5-15.5); WBC 14.2 k/uL (3.8-10.6)
[2024-06-17 18:28] LABS: ALT 14 U/L (4-34); AST 22 U/L (14-36); African American GFR (CKD) 54 (>60 ml/min/1.73 sqM); Albumin 2.5 g/dL (3.5-5.0); Alkaline Phosphatase 47 U/L (38-126); Anion Gap 3 mmol/L; Blood Urea Nitrogen 47 mg/dL (7-17); Calcium 8.3 mg/dL (8.4-10.2); Carbon Dioxide 27 mmol/L (22-30); Chloride 104 mmol/L (98-107); Glucose 127 mg/dL (74-99); Non-African American GFR(CKD) 46 (>60 ml/min/1.73 sqM); Potassium 4.1 mmol/L (3.5-5.1); Sodium 134 mmol/L (137-145); Total Bilirubin 1.2 mg/dL (0.2-1.3); Total Protein 4.6 g/dL (6.3-8.2)
[2024-06-17 18:48] LABS: Platelet Count 77 k/uL (150-450)
[2024-06-17 19:06] LABS: Appearance,Urine Clear (Clear); Bilirubin,Urine Negative (Negative); Blood,Urine Negative (Negative); Color,Urine Yellow; Glucose,Urine (UA) Negative (Negative); Ketones,Urine 1+ (Negative); Leukocyte Esterase,Urine Negative (Negative); Nitrite,Urine Negative (Negative); Protein,Urine Negative (Negative); Specific Gravity,Urine 1.022 (1.001-1.035); Urobilinogen,Urine <2.0 mg/dL (<2.0)
[2024-06-17 19:08] LABS: INR 1.1 (<1.2); Prothrombin Time 12.3 sec (10.0-12.5)
[2024-06-17 19:11] LABS: Partial Thromboplastin Time 21.3 sec (22.0-30.0)
--- NOTE | 2024-06-17 19:34 | XR ---
EXAMINATION TYPE: XR chest 2V DATE OF EXAM: 06/17/2024 7:29 PM COMPARISON: None. CLINICAL INDICATION: Female, 89 years old with history of altered mental status, TECHNIQUE: XR chest 2V view(s) obtained. FINDINGS: The heart size is normal. The pulmonary vasculature is normal. The lungs are clear. Hiatal hernia is present. Old advanced degenerative change at the left shoulder is evident. IMPRESSION: 1. No acute pulmonary process. 2. Hiatal hernia [facility], Workstation: [facility], 06/17/2024 7:32 PM
--- NOTE | 2024-06-17 19:35 | XR ---
EXAMINATION TYPE: XR pelvis AP view DATE OF EXAM: 06/17/2024 7:29 PM COMPARISON: None. CLINICAL INDICATION: Female, 89 years old with history of fall, wont walk, failure to thrive TECHNIQUE: AP view(s) obtained. FINDINGS: Femoral heads articulate with the acetabulum. No acute fractures evident. Symphysis pubis and sacroil iac joints are normal. Fecal debris is within the colon and rectum. IMPRESSION: 1. No acute osseous abnormality radiographically apparent [facility], Workstation: [facility], 06/17/2024 7:33 PM
--- NOTE | 2024-06-17 20:00 | ED ---
Altered Mental Status HPI - General Chief Complaint: Altered Mental Status Stated Complaint: Failure to Thrive Time Seen by Provider: 06/17/24 17:25 Source: EMS Mode of arrival: EMS - History of Present Illness Initial Comments: 89-year-old female with past medical history of dementia, heart failure, diabetes who presents to the emergency department with report of weakness and altered mental status. Patient was in the hospital on Tuesday after a fall. She had an x-ray completed and her skin tears were repaired with glue. Scans were negative and patient was discharged home. Son states that since Tuesday the patient has not gotten up out of bed. She has been very weak and confused. She has not ate or drink anything. She has had urinary and stool incontinence. Son went to the house and found that the was unable to care for the patient. They called the primary care doctor who recommended that the patient come up to the hospital for placement. They deny that the patient has had any other falls. Patient cannot provide any history. No other alleviating, precipitating or modifying factors - Related Data Home Medications Medication Instructions Recorded Confirmed Omeprazole 20 mg PO DAILY PRN 07/02/16 11/26/22 Etanercept [Enbrel] 50 mg SQ WE 05/16/18 11/26/22 predniSONE 5 mg PO DAILY 08/28/20 11/26/22 Furosemide [Lasix] 20 mg PO DAILY 04/14/21 11/28/22 Potassium Chloride [Klor-Con 10 ER] 10 meq PO DAILY@1700 04/14/21 11/26/22 Ranolazine [Ranolazine ER] 500 mg PO Q12HR 12/25/21 11/26/22 Aspirin EC [Ecotrin Low Dose] 81 mg PO DAILY 09/17/22 11/26/22 Levothyroxine Sodium [Synthroid] 75 mcg PO DAILY 09/17/22 11/26/22 tadalafiL 10 mg PO DAILY 09/17/22 11/26/22 Loperamide [Imodium] 2 mg PO QID PRN 10/11/22 11/26/22 Cholecalciferol [Vitamin D3 (25 50 mcg PO DAILY@1200 11/26/22 11/26/22 Mcg = 1000 Iu)] Cyanocobalamin [Vitamin B-12] 1,000 mcg PO DAILY@1200 11/26/22 11/26/22 Metoprolol Tartrate [Lopressor] 12.5 mg PO BID 11/26/22 11/26/22 Previous Rx's Medication Instructions Recorded Acetaminophen Tab [Tylenol] 650 mg PO Q6HR PRN tab 10/21/22 Atorvastatin [Lipitor] 10 mg PO HS tab 10/21/22 DULoxetine HCL [Cymbalta] 20 mg PO DAILY cap 10/21/22 Ferrous Sulfate [Iron (65 MG 325 mg PO BID-W/MEALS tab 10/21/22 Elemental)] Omeprazole 40 mg PO DAILY #30 cap 10/21/22 amLODIPine [Norvasc] 2.5 mg PO BID #180 tablet 11/28/22 HYDROcodone/APAP 7.5-325MG [[place] 1 tab PO Q6HR PRN 3 Days #12 tab 06/08/23 7.5-325] Allergies Allergy/AdvReac Type Severity Reaction Status Date / Time adhesive tape Allergy Rash/Hives Verified 06/15/24 17:34 Penicillins Allergy Rash/Hives Verified 06/15/24 17:34 Review of Systems ROS Statement: Those systems with pertinent positive or pertinent negative responses have been documented in the HPI. ROS Other: All systems not noted in ROS Statement are negative. Past Medical History Past Medical History: Cancer, Heart Failure, Diabetes Mellitus, GERD/Reflux, Hyperlipidemia, Hypertension, Memory Impairment, Rheumatoid Arthritis (RA), Thyroid Disorder Additional Past Medical History / Comment(s): States age related memory impairment. 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 Hx right breast cancer had a lumpectomy and radiaiton tx,, aortic aneurysm(sx done). per [facility] "leaky heart valve", bowel obstruction with no sx, just colonoscopy and egd done. History of Any Multi-Drug Resistant Organisms: None Reported Past Surgical History: Appendectomy, Back Surgery, Breast Surgery, Heart Catheterization, Tonsillectomy, Tubal Ligation Additional Past Surgical History / Comment(s): Surgery for arortic aneurysm, surgery on toes of bilateral feet, ablation done on back X2, had uvula removed. lt carpal tunnel release, beverly cataracts, beverly carotid endarterectomy, partial rt mastectomy. colonoscopy/egd/esophgeal dilations, laminectomy/past pain clinic procedures, bunionectomy beverly feet. Past Anesthesia/Blood Transfusion Reactions: No Reported Reaction Past Psychological History: No Psychological Hx Reported, Anxiety, Bipolar, Depression Smoking Status: Former smoker Past Alcohol Use History: None Reported Past Drug Use History: None Reported - Past Family History Sister(s) Family Medical History: Cancer Additional Family Medical History / Comment(s): Aneurysm. States 3 of her sis ters had cancer. Father Additional Family Medical History / Comment(s): Anerysym Mother Additional Family Medical History / Comment(s): Aneurysm Brother(s) Additional Family Medical History / Comment(s): Aneurysm General Exam Limitations: altered mental status General appearance: lethargic Head exam: Present: atraumatic, normocephalic, normal inspection Eye exam: Present: normal appearance, PERRL, EOMI. Absent: scleral icterus, conjunctival injection, periorbital swelling ENT exam: Present: mucous membranes dry Neck exam: Present: normal inspection. Absent: tenderness, meningismus, lymphadenopathy Respiratory exam: Present: normal lung sounds bilaterally. Absent: respiratory distress, wheezes, rales, rhonchi, stridor Cardiovascular Exam: Present: regular rate, normal rhythm, normal heart sounds. Absent: systolic murmur, diastolic murmur, rubs, gallop, clicks GI/Abdominal exam: Present: soft, normal bowel sounds. Absent: distended, tenderness, guarding, rebound, rigid Neurological exam: Present: altered Psychiatric exam: Present: agitated, flat affect Skin exam: Present: other (Notable skin tears. Large skin tear with ecchymosis noted over the left humerus measuring 11 cm. Additional skin tear noted over the right knee measuring 4 cm) Course Vital Signs 06/17/24 06/17/24 06/17/24 17:22 18:50 19:08 Temperature 100 F H 98.4 F Pulse Rate 74 72 79 Respiratory 17 18 18 Rate Blood Pressure 133/60 124/53 130/61 O2 Sat by Pulse 100 98 97 Oximetry 06/17/24 20:13 Temperature Pulse Rate 76 Respiratory 19 Rate Blood Pressure 120/62 O2 Sat by Pulse 97 Oximetry Medical Decision Making - Medical Decision Making Was pt. sent in by a medical professional or institution (, PA, CUSTOMER SERVICE ASSOCIATE, urgent care, hospital, or long-term...) When possible be specific @ -No Did you speak to anyone other than the patient for history (EMS, parent, family, police, friend...)? What history was obtained from this source @ -Spoke with EMS, and son for history Did you review nursing and triage notes (agree or disagree)? Why? @ -I reviewed and agree with nursing and triage notes Were old charts reviewed (outside hosp., previous admission, EMS record, old EKG, old radiological studies, urgent care reports/EKG's, long-term records)? Report findings @ -I reviewed the ER note by Dr. Le from Tuesday Differential Diagnosis (chest pain, altered mental status, abdominal pain women, abdominal pain men, vaginal bleeding, weakness, fever, dyspnea, syncope, headache, dizziness, GI bleed, back pain, seizure, CVA, palpatations, mental health, musculoskeletal)? @ -Differential Altered Mental Status: Hypoglycemia, DKA, hypercapnia, ETOH, overdose, CO poisoning, trauma, myxedema coma, HTN encephalopathy, infection, encephalitis, psychosis, intercranial hemorrhage, hepatic encephalopathy, meningitis, CVA, this is not meant to be an all-inclusive list EKG interpreted by me (3pts min.). @ -Yes and demonstrates sinus rhythm with a rate of 79. SC interval 156. QRS 161. QTc of 401. No acute ST segment elevations or depressions X-rays interpreted by me (1pt min.). @ -Yes and demonstrates no acute process CT interpreted by me (1pt min.). @ -Yes and demonstrates no acute process U/S interpreted by me (1pt. min.). @ -None done What testing was considered but not performed or refused? (CT, X-rays, U/S, labs)? Why? @ -None What meds were considered but not given or refused? Why? @ -None Did you discuss the management of the patient with other professionals (professionals i.e. Dr., PA, CUSTOMER SERVICE ASSOCIATE, lab, RT, psych nurse, social media developer, knuckle strap sewer, teacher, aoc director combat operations officer, case hardener)? Give summary @ -Called to speak with patient's primary care doctor for admission Was smoking cessation discussed for >3mins.? @ -No Was critical care preformed (if so, how long)? @ -No Were there social determinants of health that impacted care today? How? (Homelessness, low income, unemployed, alcoholism, drug addiction, transportat ion, low edu. Level, literacy, decrease access to med. care, senior living, rehab)? @ -No Was there de-escalation of care discussed even if they declined (Discuss DNR or withdrawal of care, Hospice)? DNR status @ -Yes, son states that the patient is a DNR What co-morbidities impacted this encounter? (DM, HTN, Smoking, COPD, CAD, Cancer, CVA, ARF, Chemo, Hep., AIDS, mental health diagnosis, sleep apnea, m orbid obesity)? @ -Dementia, congestive heart failure Was patient admitted / discharged? Hospital course, mention meds given and route, prescriptions, significant lab abnormalities, going to OR and other pertinent info. @ -Upon arrival patient seen and evaluated in bed 5. Thorough history and phy sical exam was performed. IV access was established. Patient's skin tears were dressed. Laboratory studies are conducted. Patient is positive for COVID. Chest and pelvic x-ray was performed. Patient is sent for CT of her brain. Results are discussed with the son and at bedside. Patient will be admitted for COVID infection, weakness. I will provide her with gentle fluid hydration. Called to speak with patient's primary care doctor for admission. Patient awaiting a bed on the floor in stable condition with a guarded prognosis Undiagnosed new problem with uncertain prognosis? @ -No Drug Therapy requiring intensive monitoring for toxicity (Heparin, Nitro, Insulin, Cardizem)? @ -No Were any procedures done? @ -No Diagnosis/symptom? @ -Acute weakness, acute COVID infection, NSTEMI, multiple skin tears Acute, or Chronic, or Acute on Chronic? @ -Acute Uncomplicated (without systemic symptoms) or Complicated (systemic symptoms)? @ -Complicated Side effects of treatment? @ -No Exacerbation, Progression, or Severe Exacerbation? @ -No Poses a threat to life or bodily function? How? (Chest pain, [place], [place], pneumonia, PE, COPD, DKA, ARF, appy, cholecystitis, CVA, Diverticulitis, Homicidal, Suicidal, threat to staff... and all critical care pts) @ -Yes as patient may succumb to her illness - Lab Data Result diagrams: 06/17/24 17:57 06/17/24 17:57 Lab Results 06/17/24 06/17/24 06/17/24 Range/Units 17:57 17:57 17:57 WBC 14.2 H (3.8-10.6) k/uL RBC 3.43 L (3.80-5.40) m/uL Hgb 11.3 L (11.4-16.0) gm/dL Hct 34.2 (34.0-46.0) % MCV 99.6 (80.0-100.0) fL MCH 32.8 (25.0-35.0) pg MCHC 33.0 (31.0-37.0) g/dL RDW 14.7 (11.5-15.5) % Plt Count 77 L (150-450) k/uL MPV 8.7 Neutrophils % 84 % Lymphocytes % 10 % Monocytes % 5 % Eosinophils % 1 % Basophils % 0 % Neutrophils # 11.9 H (1.3-7.7) k/uL Lymphocytes # 1.4 (1.0-4.8) k/uL Monocytes # 0.7 (0-1.0) k/uL Eosinophils # 0.1 (0-0.7) k/uL Basophils # 0.0 (0-0.2) k/uL Manual Slide Review Performed Macrocytosis Slight PT 12.3 (10.0-12.5) sec INR 1.1 (<1.2) APTT 21.3 L (22.0-30.0) sec Sodium 134 L (137-145) mmol/L Potassium 4.1 (3.5-5.1) mmol/L Chloride 104 (98-107) mmol/L Carbon Dioxide 27 (22-30) mmol/L Anion Gap 3 mmol/L BUN 47 H (7-17) mg/dL Creatinine 1.07 H (0.52-1.04) mg/dL Est GFR (CKD-EPI)AfAm 54 (>60 ml/min/1.73 sqM) Est GFR (CKD-EPI)NonAf 46 (>60 ml/min/1.73 sqM) Glucose 127 H (74-99) mg/dL Calcium 8.3 L (8.4-10.2) mg/dL Total Bilirubin 1.2 (0.2-1.3) mg/dL AST 22 (14-36) U/L ALT 14 (4-34) U/L Alkaline Phosphatase 47 (38-126) U/L Troponin I (0.000-0.034) ng/mL Total Protein 4.6 L (6.3-8.2) g/dL Albumin 2.5 L (3.5-5.0) g/dL Urine Color Urine Appearance (Clear) Urine pH (5.0-8.0) Ur Specific [place] (1.001-1.035) Urine Protein (Negative) Urine Glucose (UA) (Negative) Urine Ketones (Negative) Urine Blood (Negative) Urine Nitrite (Negative) Urine Bilirubin (Negative) Urine Urobilinogen (<2.0) mg/dL Ur Leukocyte Esterase (Negative) Influenza Type A (PCR) (Not Detectd) Influenza Type B (PCR) (Not Detectd) RSV (PCR) (Not Detectd) SARS-CoV-2 (PCR) (Not Detectd) 06/17/24 06/17/24 06/17/24 Range/Units 17:57 18:11 18:48 WBC (3.8-10.6) k/uL RBC (3.80-5.40) m/uL Hgb (11.4-16.0) gm/dL Hct (34.0-46.0) % MCV (80.0-100.0) fL MCH (25.0-35.0) pg MCHC (31.0-37.0) g/dL RDW (11.5-15.5) % Plt Count (150-450) k/uL MPV Neutrophils % % Lymphocytes % % Monocytes % % Eosinophils % % Basophils % % Neutrophils # (1.3-7.7) k/uL Lymphocytes # (1.0-4.8) k/uL Monocytes # (0-1.0) k/uL Eosinophils # (0-0.7) k/uL Basophils # (0-0.2) k/uL Manual Slide Review Macrocytosis PT (10.0-12.5) sec INR (<1.2) APTT (22.0-30.0) sec Sodium (137-145) mmol/L Potassium (3.5-5.1) mmol/L Chloride (98-107) mmol/L Carbon Dioxide (22-30) mmol/L Anion Gap mmol/L BUN (7-17) mg/dL Creatinine (0.52-1.04) mg/dL Est GFR (CKD-EPI)AfAm (>60 ml/min/1.73 sqM) Est GFR (CKD-EPI)NonAf (>60 ml/min/1.73 sqM) Glucose (74-99) mg/dL Calcium (8.4-10.2) mg/dL Total Bilirubin (0.2-1.3) mg/dL AST (14-36) U/L ALT (4-34) U/L Alkaline Phosphatase (38-126) U/L Troponin I 0.076 H* (0.000-0.034) ng/mL Total Protein (6.3-8.2) g/dL Albumin (3.5-5.0) g/dL Urine Color Yellow Urine Appearance Clear (Clear) Urine pH 5.0 (5.0-8.0) Ur Specific [place] 1.022 (1.001-1.035) Urine Protein Negative (Negative) Urine Glucose (UA) Negative (Negative) Urine Ketones 1+ H (Negative) Urine Blood Negative (Negative) Urine Nitrite Negative (Negative) Urine Bilirubin Negative (Negative) Urine Urobilinogen <2.0 (<2.0) mg/dL Ur Leukocyte Esterase Negative (Negative) Influenza Type A (PCR) Not Detected (Not Detectd) Influenza Type B (PCR) Not Detected (Not Detectd) RSV (PCR) Not Detected (Not Detectd) SARS-CoV-2 (PCR) Detected A (Not Detectd) Disposition Clinical Impression: Fall, Skin tear, NSTEMI (non-ST elevated myocardial infarction), COVID-19, Encephalopathy acute Disposition: ADMITTED IP TO THIS [facility] Condition: Stable Is patient prescribed a controlled substance at d/c from ED?: No Referrals: Issac Olivia MD [Primary Care Provider] - 1-2 days Time of Disposition: 20:45 Decision to Admit Reason: Admit from EC Decision Date: 06/17/24 Decision Time: 20:45
--- NOTE | 2024-06-17 20:11 | CT ---
EXAMINATION TYPE: CT brain wo con DATE OF EXAM: 06/17/2024 7:42 PM COMPARISON: None. CLINICAL INDICATION: Female, 89 years old with history of Altered mental status, ams TECHNIQUE: CT of the brain is performed utilizing 3 mm thick sections through the posterior fossa and 3 mm thick sections through the remaining calvarium. Study is performed within 24 hours of arrival to the hospital. Contrast used: mL of , (none if empty) CT DLP: 1227.5 mGycm, Automated exposure control for dose reduction was used. FINDINGS: No abnormal hyperdensity is present to suggest an acute intracranial hemorrhage. No mass lesion is evident. No acute infarcts are evident. Confluent periventricular white matter hypodensity is present, likely on the basis of chronic white matter ischemic change. Ventricles and sulci are prominent for the patient age. Paranasal sinuses and mastoid air cells within the [id number] are clear. IMPRESSION: 1. No acute intracranial process. Follow up MRI can be performed as clinically indicated. 2. Chronic confluent periventricular white matter ischemic changes with atrophy [facility], Workstation: [facility], 06/17/2024 8:09 PM
[2024-06-17] MEDS ORDERED: ACETAMINOPHEN TAB 325 MG TAB PO PRN (20:45)
[2024-06-17] MEDS ORDERED: NALOXONE 0.4 MG/ML 1 ML VIAL IV PRN (20:45)
[2024-06-17] MEDS: SODIUM CHLORIDE 0.9% 1,000 ML IV SCH (20:55)
[2024-06-17] MEDS ORDERED: LORazepam 2 MG/ML INJ IV PRN (21:21)
[2024-06-17] MEDS: cefTRIAXone IN SWFI 1,000 MG/10 ML SYRINGE IVP SCH (22:06)
[2024-06-18] MEDS ORDERED: HEPARIN SODIUM 1,000 UN/ML (10ML VL) IV PRN (02:06)
[2024-06-18 03:03] LABS: INR 1.2 (<1.2); Partial Thromboplastin Time 21.9 sec (22.0-30.0); Prothrombin Time 12.6 sec (10.0-12.5)
[2024-06-18] MEDS: HEPARIN SOD,PORK IN 0.45% NACL 25,000 UNIT in 0.45% NACL 1 250ML.BAG IV SCH (03:23)
[2024-06-18 07:20] LABS: Basophils % (A) 0 %; Eosinophils # (A) 0.1 k/uL (0-0.7); Eosinophils % (A) 1 %; HCT 31.9 % (34.0-46.0); HGB 10.3 gm/dL (11.4-16.0); Lymphocytes # (A) 1.6 k/uL (1.0-4.8); Lymphocytes % (A) 13 %; MCH 32.5 pg (25.0-35.0); MCHC 32.4 g/dL (31.0-37.0); MCV 100.5 fL (80.0-100.0); Macrocytosis Slight; Monocytes # (A) 0.6 k/uL (0-1.0); Monocytes % (A) 5 %; Neutrophils # (A) 9.5 k/uL (1.3-7.7); Neutrophils % (A) 80 %; RBC 3.17 m/uL (3.80-5.40); RDW 14.7 % (11.5-15.5); WBC 11.8 k/uL (3.8-10.6)
[2024-06-18 07:30] LABS: Platelet Count 63 k/uL (150-450)
[2024-06-18 07:38] LABS: African American GFR (CKD) 65 (>60 ml/min/1.73 sqM); Anion Gap 6 mmol/L; Blood Urea Nitrogen 42 mg/dL (7-17); Carbon Dioxide 21 mmol/L (22-30); Chloride 109 mmol/L (98-107); Glucose 102 mg/dL (74-99); Non-African American GFR(CKD) 56 (>60 ml/min/1.73 sqM); Potassium 4.4 mmol/L (3.5-5.1); Sodium 136 mmol/L (137-145)
[2024-06-18 10:56] LABS: C Reactive Protein 3.8 mg/dL (<1.0)
--- NOTE | 2024-06-18 11:33 | XR ---
EXAMINATION TYPE: XR abdomen complete w decub DATE OF EXAM: 06/18/2024 COMPARISON: NONE CLINICAL INDICATION: Female, 89 years old with history of Acute abdomen; TECHNIQUE: Supine, upright, and left side down lateral decubitus views of the abdomen are obtained. FINDINGS: Right upper quadrant course significance. Costochondral cartilage calcifications. Multilevel degenera tion changes of the spine. Surgical clips project over the right lower abdomen. There is no evidence for pneumoperitoneum. The bowel gas pattern is unremarkable as there is air throughout nondilated small and large bowel. No sizeable air fluid levels. No mass effects are seen. No unusual calcifications. IMPRESSION: No evidence for acute process. Unremarkable bowel gas pattern. [facility], , 06/18/2024 11:30 AM
--- NOTE | 2024-06-18 12:09 | P.CRDCN ---
History of Present Illness Consult date: 06/18/24 Reason for Consult (text): NSTEMI History of present illness: This is an 89-year-old female patient of Dr. Sequeira with past medical history of CAD with known severe triple-vessel CAD on cardiac catheterization in 2017, diabetes, hypertension, dyslipidemia, peripheral artery disease, tobacco use. We have been asked to evaluate the patient for NSTEMI. Patient is unresponsive at this time and unable to give any information. According to the patient's nurse, patient was brought into the hospital due to failure to thrive and correction placement. Patient is currently n.p.o. and not eating not able to take any oral medications. Due to mental status changes, patient is unable to provide any information. Blood pressure 130/55, heart rate 72, pulse ox 98% on room air. Patient is seen today in the emergency center waiting for bed on the cardiac stepdown unit. Patient has been started on a heparin drip. -EKG: Sinus rhythm with PVCs -Chest x-ray: No acute process. Hiatal hernia -Pelvis x-ray: No acute abnormality. -Abdominal x-ray: No acute process -Laboratory studies: WBC initially 14.2, now 11.8, hemoglobin 10.3, platelet c ount 63. Troponin 0.076, 0.095, 0.108. Amylase 408. Procalcitonin 0.11 influenza A, influenza B, RSV not detected. COVID-19 positive. -Home cardiac medications: Lasix 20 mg daily, metoprolol tartrate 12.5 mg twice daily, potassium chloride 10 mill equivalents daily, Ranexa 500 mg every 12 hours -Echocardiogram performed 05/04/2024 revealed normal EF, mild TR, mild MR, mild to moderate AR. Review Of Systems: At the time of my exam: Unable to obtain due to patient's mental status Physical examination: Gen: This is an 89-year-old female in no acute respiratory distress VS: reviewed HEENT: Head is atraumatic, normocephalic. Pupils equal, round. Sclerae is anicteric. NECK: Supple. No JVD. LUNGS: Clear to auscultation. No wheezes or rhonchi. No intercostal retractions. HEART: Regular rate and rhythm. No murmur. ABDOMEN: Soft No tenderness. EXTREMITIES: No pedal edema. No calf tenderness. Assessment: Metabolic encephalopathy COVID-19 Elevated troponins most likely secondary to COVID-19 Thrombocytopenia Dementia History of severe triple-vessel CAD Diabetes mellitus type 2 Hypertension Dyslipidemia Peripheral artery disease History of tobacco use Plan: Resume patient's home cardiac medications once patient is able to swallow Continue heparin drip Obtain 2-D echocardiogram and Doppler study to assess cardiac structure and function No plan for aggressive cardiac workup at this time. Further recommendations to follow based upon clinical course Thank you kindly for this consultation. Nurse practitioner note has been reviewed, I agree with documented findings and plan of care. Patient was seen and examined. Past Medical History Past Medical History: Cancer, Heart Failure, Diabetes Mellitus, GERD/Reflux, Hyperlipidemia, Hypertension, Memory Impairment, Rheumatoid Arthritis (RA), Thyroid Disorder Additional Past Medical History / Comment(s): States age related memory impairment. 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 Hx right breast cancer had a lumpectomy and radiaiton tx,, aortic aneurysm(sx done). [facility] "leaky heart valve", bowel obstruction with no sx, just colonoscopy and egd done. History of Any Multi-Drug Resistant Organisms: None Reported Past Surgical History: Appendectomy, Back Surgery, Breast Surgery, Heart Catheterization, Tonsillectomy, Tubal Ligation Additional Past Surgical History / Comment(s): Surgery for arortic aneurysm, surgery on toes of bilateral feet, ablation done on back X2, had uvula removed.lt carpal tunnel release, beverly cataracts, beverly carotid endarterectomy, partial rt mastectomy. colonoscopy/egd/esophgeal dilations, laminectomy/past pain clinic procedures, bunionectomy beverly feet. Past Anesthesia/Blood Transfusion Reactions: No Reported Reaction Past Psychological History: No Psychological Hx Reported, Anxiety, Bipolar, Depression Smoking Status: Former smoker Past Alcohol Use History: None Reported Past Drug Use History: None Reported - Past Family History Sister(s) Family Medical History: Cancer Additional Family Medical History / Comment(s): Aneurysm. States 3 of her sisters had cancer. Father Additional Family Medical History / Comment(s): Anerysym Mother Additional Family Medical History / Comment(s): Aneurysm Brother(s) Additional Family Medical History / Comment(s): Aneurysm Medications and Allergies Home Medications Medication Instructions Recorded Confirmed Type Etanercept [Enbrel] 50 mg SQ WEEKLY 05/16/18 06/18/24 History predniSONE 5 mg PO DAILY 08/28/20 06/18/24 History Potassium Chloride [Klor-Con 10 ER] 10 meq PO DAILY 04/14/21 06/18/24 History Ranolazine [Ranolazine ER] 500 mg PO Q12HR 12/25/21 06/18/24 History Metoprolol Tartrate [Lopressor] 12.5 mg PO BID 11/26/22 06/18/24 History Furosemide [Lasix] 20 mg PO DAILY 06/18/24 06/18/24 History Levothyroxine Sodium [Synthroid] 100 mcg PO DAILY 06/18/24 06/18/24 History Memantine HCl [Memantine HCl ER] 7 mg PO DAILY 06/18/24 06/18/24 History Methylphenidate HCl [Ritalin] 10 mg PO BID 06/18/24 06/18/24 History QUEtiapine [SEROquel] 12.5 mg PO BID 06/18/24 06/18/24 History Allergies Allergy/AdvReac Type Severity Reaction Status Date / Time adhesive tape Allergy Rash/Hives Verified 06/18/24 10:35 Penicillins Allergy Rash/Hives Verified 06/18/24 10:35 Physical Exam Vitals: Vital Signs Temp Pulse Resp BP Pulse Ox 06/18/24 08:29 74 14 142/60 98 06/18/24 01:00 76 18 127/59 98 06/18/24 00:00 98.8 F 74 20 118/55 97 06/17/24 23:00 81 20 102/55 98 06/17/24 22:00 82 17 129/67 98 06/17/24 20:13 76 19 120/62 97 06/17/24 19:08 98.4 F 79 18 130/61 97 06/17/24 18:50 72 18 124/53 98 06/17/24 17:22 100 F H 74 17 133/60 100 Intake and Output 06/17/24 06/18/24 06/18/24 22:59 06:59 14:59 Intake Total 37.107 Balance 37.107 Intake: Intake, IV Titration 37.107 Amount Heparin Sod,Pork in 0.45% 37.107 NaCl 25,000 unit In 0.45 % NaCl 1 250ml.bag @ 12 UNITS/KG/HR 7.348 mls/hr IV .Q24H [facility] Rx#: [id number] Other: Voiding Method Diaper Incontinent Weight 61.235 kg Results 06/18/24 06:37 06/18/24 06:37 Cardiac Enzymes 06/17/24 06/17/24 06/17/24 Range/Units 17:57 17:57 21:12 AST 22 (14-36) U/L Troponin I 0.076 H* 0.095 H* (0.000-0.034) ng/mL 06/18/24 Range/Units 00:01 AST (14-36) U/L Troponin I 0.108 H* (0.000-0.034) ng/mL Coagulation 06/17/24 06/18/24 06/18/24 Range/Units 17:57 02:23 07:42 PT 12.3 12.6 H (10.0-12.5) sec APTT 21.3 L 21.9 L 42.2 H (22.0-30.0) sec CBC 06/17/24 06/18/24 Range/Units 17:57 06:37 WBC 14.2 H 11.8 H (3.8-10.6) k/uL RBC 3.43 L 3.17 L (3.80-5.40) m/uL Hgb 11.3 L 10.3 L (11.4-16.0) gm/dL Hct 34.2 31.9 L (34.0-46.0) % Plt Count 77 L 63 L (150-450) k/uL Comprehensive Metabolic Panel 06/17/24 06/18/24 Range/Units 17:57 06:37 Sodium 134 L 136 L (137-145) mmol/L Potassium 4.1 4.4 (3.5-5.1) mmol/L Chloride 104 109 H (98-107) mmol/L Carbon Dioxide 27 21 L (22-30) mmol/L BUN 47 H 42 H (7-17) mg/dL Creatinine 1.07 H 0.91 (0.52-1.04) mg/dL Glucose 127 H 102 H (74-99) mg/dL Calcium 8.3 L 8.0 L (8.4-10.2) mg/dL AST 22 (14-36) U/L ALT 14 (4-34) U/L Alkaline Phosphatase 47 (38-126) U/L Total Protein 4.6 L (6.3-8.2) g/dL Albumin 2.5 L (3.5-5.0) g/dL Current Medications Generic Name Dose Route Start Last Admin Trade Name Freq PRN Reason Stop Dose Admin Acetaminophen 650 mg 06/17/24 20:45 Acetaminophen Tab 325 Mg Tab PO Q6HR PRN Mild Pain or Fever > 100.5 Ceftriaxone Sodium 1,000 mg 06/17/24 21:30 06/18/24 08:34 Ceftriaxone In Swfi 1,000 Mg/10 Ml Syringe IVP 1,000 mg BID RIO Administration Protocol Heparin Sodium (Porcine) 0 unit 06/18/24 02:06 Heparin Sodium 1,000 Un/Ml (10ml Vl) IV PER PROTOCOL PRN Low PTT Protocol Sodium Chloride 1,000 mls @ 100 mls/hr 06/17/24 20:15 06/18/24 08:34 Saline 0.9% IV 100 mls/hr .Q10H RIO Administration Heparin Sodium/Sodium Chloride 250 mls @ 7.348 mls/hr 06/18/24 02:15 06/18/24 08:26 25,000 unit/ Sodium Chloride IV 12 units/kg/hr .Q24H [facility] 7.348 mls/hr Titration Protocol 12 UNITS/KG/HR Lorazepam 0.5 mg 06/17/24 21:21 Lorazepam 2 Mg/Ml Inj IV ONCE PRN Agitation Naloxone HCl 0.2 mg 06/17/24 20:45 Naloxone 0.4 Mg/Ml 1 Ml Vial IV Q2M PRN Opioid Reversal Intake and Output 06/17/24 06/18/24 06/18/24 22:59 06:59 14:59 Intake Total 37.107 Balance 37.107 Intake: Intake, IV Titration 37.107 Amount Heparin Sod,Pork in 0.45% 37.107 NaCl 25,000 unit In 0.45 % NaCl 1 250ml.bag @ 12 UNITS/KG/HR 7.348 mls/hr IV .Q24H [facility] Rx#: [id number] Other: Voiding Method Diaper Incontinent Weight 61.235 kg 06/18/24 06:37 06/18/24 06:37
--- NOTE | 2024-06-18 17:32 | P.HPIM ---
History of Present Illness H&P Date: 06/18/24 Past Medical History Past Medical History: Cancer, Heart Failure, Diabetes Mellitus, GERD/Reflux, Hyperlipidemia, Hypertension, Memory Impairment, Rheumatoid Arthritis (RA), Thyroid Disorder Additional Past Medical History / Comment(s): States age related memory impairment. 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 Hx right breast cancer had a lumpectomy and radiaiton tx,, aortic aneurysm(sx done). per [facility] "leaky heart valve", bowel obstruction with no sx, just colonoscopy and egd done. History of Any Multi-Drug Resistant Organisms: None Reported Past Surgical History: Appendectomy, Back Surgery, Breast Surgery, Heart Catheterization, Tonsillectomy, Tubal Ligation Additional Past Surgical History / Comment(s): Surgery for arortic aneurysm, surgery on toes of bilateral feet, ablation done on back X2, had uvula re moved.lt carpal tunnel release, beverly cataracts, beverly carotid endarterectomy, partial rt mastectomy. colonoscopy/egd/esophgeal dilations, laminectomy/past pain clinic procedures, bunionectomy beverly feet. Past Anesthesia/Blood Transfusion Reactions: No Reported Reaction Past Psychological History: No Psychological Hx Reported, Anxiety, Bipolar, Depression Smoking Status: Former smoker Past Alcohol Use History: None Reported Past Drug Use History: None Reported - Past Family History Sister(s) Family Medical History: Cancer Additional Family Medical History / Comment(s): Aneurysm. States 3 of her sisters had cancer. Father Additional Family Medical History / Comment(s): Anerysym Mother Additional Family Medical History / Comment(s): Aneurysm Brother(s) Additional Family Medical History / Comment(s): Aneurysm Medications and Allergies Home Medications Medication Instructions Recorded Confirmed Type Etanercept [Enbrel] 50 mg SQ WEEKLY 05/16/18 06/18/24 History predniSONE 5 mg PO DAILY 08/28/20 06/18/24 History Potassium Chloride [Klor-Con 10 ER] 10 meq PO DAILY 04/14/21 06/18/24 History Ranolazine [Ranolazine ER] 500 mg PO Q12HR 12/25/21 06/18/24 History Metoprolol Tartrate [Lopressor] 12.5 mg PO BID 11/26/22 06/18/24 History Furosemide [Lasix] 20 mg PO DAILY 06/18/24 06/18/24 History Levothyroxine Sodium [Synthroid] 100 mcg PO DAILY 06/18/24 06/18/24 History Memantine HCl [Memantine HCl ER] 7 mg PO DAILY 06/18/24 06/18/24 History Methylphenidate HCl [Ritalin] 10 mg PO BID 06/18/24 06/18/24 History QUEtiapine [SEROquel] 12.5 mg PO BID 06/18/24 06/18/24 History Allergies Allergy/AdvReac Type Severity Reaction Status Date / Time adhesive tape Allergy Rash/Hives Verified 06/18/24 10:35 Penicillins Allergy Rash/Hives Verified 06/18/24 10:35 Physical Exam Vitals: Vital Signs Temp Pulse Resp BP Pulse Ox 06/18/24 13:41 71 20 133/51 98 06/18/24 10:32 72 14 130/55 98 06/18/24 08:29 74 14 142/60 98 06/18/24 01:00 76 18 127/59 98 06/18/24 00:00 98.8 F 74 20 118/55 97 06/17/24 23:00 81 20 102/55 98 06/17/24 22:00 82 17 129/67 98 06/17/24 20:13 76 19 120/62 97 06/17/24 19:08 98.4 F 79 18 130/61 97 06/17/24 18:50 72 18 124/53 98 06/17/24 17:22 100 F H 74 17 133/60 100 Intake and Output 06/17/24 06/18/24 06/18/24 22:59 06:59 14:59 Intake Total 37.107 Balance 37.107 Intake: Intake, IV Titration 37.107 Amount Heparin Sod,Pork in 0.45% 37.107 NaCl 25,000 unit In 0.45 % NaCl 1 250ml.bag @ 12 UNITS/KG/HR 7.348 mls/hr IV .Q24H [facility] Rx#: [id number] Other: Voiding Method Diaper Incontinent Weight 61.235 kg Results CBC & Chem 7: 06/18/24 06:37 06/18/24 06:37 Labs: Abnormal Lab Results - Last 24 Hours (Table) 06/17/24 06/17/24 06/17/24 Range/Units 17:57 17:57 17:57 WBC 14.2 H (3.8-10.6) k/uL RBC 3.43 L (3.80-5.40) m/uL Hgb 11.3 L (11.4-16.0) gm/dL Hct (34.0-46.0) % MCV (80.0-100.0) fL Plt Count 77 L (150-450) k/uL Neutrophils # 11.9 H (1.3-7.7) k/uL PT (10.0-12.5) sec INR (<1.2) APTT 21.3 L (22.0-30.0) sec Sodium 134 L (137-145) mmol/L Chloride (98-107) mmol/L Carbon Dioxide (22-30) mmol/L BUN 47 H (7-17) mg/dL Creatinine 1.07 H (0.52-1.04) mg/dL Glucose 127 H (74-99) mg/dL Calcium 8.3 L (8.4-10.2) mg/dL Troponin I (0.000-0.034) ng/mL C-Reactive Protein (<1.0) mg/dL Total Protein 4.6 L (6.3-8.2) g/dL Albumin 2.5 L (3.5-5.0) g/dL Amylase (30-110) U/L Urine Ketones (Negative) SARS-CoV-2 (PCR) (Not Detectd) 06/17/24 06/17/24 06/17/24 Range/Units 17:57 18:11 18:48 WBC (3.8-10.6) k/uL RBC (3.80-5.40) m/uL Hgb (11.4-16.0) gm/dL Hct (34.0-46.0) % MCV (80.0-100.0) fL Plt Count (150-450) k/uL Neutrophils # (1.3-7.7) k/uL PT (10.0-12.5) sec INR (<1.2) APTT (22.0-30.0) sec Sodium (137-145) mmol/L Chloride (98-107) mmol/L Carbon Dioxide (22-30) mmol/L BUN (7-17) mg/dL Creatinine (0.52-1.04) mg/dL Glucose (74-99) mg/dL Calcium (8.4-10.2) mg/dL Troponin I 0.076 H* (0.000-0.034) ng/mL C-Reactive Protein (<1.0) mg/dL Total Protein (6.3-8.2) g/dL Albumin (3.5-5.0) g/dL Amylase (30-110) U/L Urine Ketones 1+ H (Negative) SARS-CoV-2 (PCR) Detected A (Not Detectd) 06/17/24 06/18/24 06/18/24 Range/Units 21:12 00:01 02:23 WBC (3.8-10.6) k/uL RBC (3.80-5.40) m/uL Hgb (11.4-16.0) gm/dL Hct (34.0-46.0) % MCV (80.0-100.0) fL Plt Count (150-450) k/uL Neutrophils # (1.3-7.7) k/uL PT 12.6 H (10.0-12.5) sec INR 1.2 H (<1.2) APTT 21.9 L (22.0-30.0) sec Sodium (137-145) mmol/L Chloride (98-107) mmol/L Carbon Dioxide (22-30) mmol/L BUN (7-17) mg/dL Creatinine (0.52-1.04) mg/dL Glucose (74-99) mg/dL Calcium (8.4-10.2) mg/dL Troponin I 0.095 H* 0.108 H* (0.000-0.034) ng/mL C-Reactive Protein (<1.0) mg/dL Total Protein (6.3-8.2) g/dL Albumin (3.5-5.0) g/dL Amylase (30-110) U/L Urine Ketones (Negative) SARS-CoV-2 (PCR) (Not Detectd) 06/18/24 06/18/24 06/18/24 Range/Units 06:37 06:37 07:42 WBC 11.8 H (3.8-10.6) k/uL RBC 3.17 L (3.80-5.40) m/uL Hgb 10.3 L (11.4-16.0) gm/dL Hct 31.9 L (34.0-46.0) % MCV 100.5 H (80.0-100.0) fL Plt Count 63 L (150-450) k/uL Neutrophils # 9.5 H (1.3-7.7) k/uL PT (10.0-12.5) sec INR (<1.2) APTT 42.2 H (22.0-30.0) sec Sodium 136 L (137-145) mmol/L Chloride 109 H (98-107) mmol/L Carbon Dioxide 21 L (22-30) mmol/L BUN 42 H (7-17) mg/dL Creatinine (0.52-1.04) mg/dL Glucose 102 H (74-99) mg/dL Calcium 8.0 L (8.4-10.2) mg/dL Troponin I (0.000-0.034) ng/mL C-Reactive Protein (<1.0) mg/dL Total Protein (6.3-8.2) g/dL Albumin (3.5-5.0) g/dL Amylase (30-110) U/L Urine Ketones (Negative) SARS-CoV-2 (PCR) (Not Detectd) 06/18/24 06/18/24 Range/Units 09:59 09:59 WBC (3.8-10.6) k/uL RBC (3.80-5.40) m/uL Hgb (11.4-16.0) gm/dL Hct (34.0-46.0) % MCV (80.0-100.0) fL Plt Count (150-450) k/uL Neutrophils # (1.3-7.7) k/uL PT (10.0-12.5) sec INR (<1.2) APTT (22.0-30.0) sec Sodium (137-145) mmol/L Chloride (98-107) mmol/L Carbon Dioxide (22-30) mmol/L BUN (7-17) mg/dL Creatinine (0.52-1.04) mg/dL Glucose (74-99) mg/dL Calcium (8.4-10.2) mg/dL Troponin I (0.000-0.034) ng/mL C-Reactive Protein 3.8 H (<1.0) mg/dL Total Protein (6.3-8.2) g/dL Albumin (3.5-5.0) g/dL Amylase 408 H* (30-110) U/L Urine Ketones (Negative) SARS-CoV-2 (PCR) (Not Detectd)
--- NOTE | 2024-06-18 17:33 | P.HPIM ---
History of Present Illness H&P Date: 06/18/24 Chief Complaint: Generalized weakness, not eating and not drinking unable to ambulate or wal Past Medical History Past Medical History: Cancer, Heart Failure, Diabetes Mellitus, GERD/Reflux, Hyperlipidemia, Hypertension, Memory Impairment, Rheumatoid Arthritis (RA), Thyroid Disorder Additional Past Medical History / Comment(s): States age related memory impairment. 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 Hx right breast cancer had a lumpectomy and radiaiton tx,, aortic aneurysm(sx done). per [facility] "leaky heart valve", bowel obstruction with no sx, just colonoscopy and egd done. History of Any Multi-Drug Resistant Organisms: None Reported Past Surgical History: Appendectomy, Back Surgery, Breast Surgery, Heart Cath eterization, Tonsillectomy, Tubal Ligation Additional Past Surgical History / Comment(s): Surgery for arortic aneurysm, surgery on toes of bilateral feet, ablation done on back X2, had uvula removed.lt carpal tunnel release, beverly cataracts, beverly carotid endarterectomy, partial rt mastectomy. colonoscopy/egd/esophgeal dilations, laminectomy/past pain clinic procedures, bunionectomy beverly feet. Past Anesthesia/Blood Transfusion Reactions: No Reported Reaction Past Psychological History: No Psychological Hx Reported, Anxiety, Bipolar, Depression Smoking Status: Former smoker Past Alcohol Use History: None Reported Past Drug Use History: None Reported - Past Family History Sister(s) Family Medical History: Cancer Additional Family Medical History / Comment(s): Aneurysm. States 3 of her sisters had cancer. Father Additional Family Medical History / Comment(s): Anerysym Mother Additional Family Medical History / Comment(s): Aneurysm Brother(s) Additional Family Medical History / Comment(s): Aneurysm Medications and Allergies Home Medications Medication Instructions Recorded Confirmed Type Etanercept [Enbrel] 50 mg SQ WEEKLY 05/16/18 06/18/24 History predniSONE 5 mg PO DAILY 08/28/20 06/18/24 History Potassium Chloride [Klor-Con 10 ER] 10 meq PO DAILY 04/14/21 06/18/24 History Ranolazine [Ranolazine ER] 500 mg PO Q12HR 12/25/21 06/18/24 History Metoprolol Tartrate [Lopressor] 12.5 mg PO BID 11/26/22 06/18/24 History Furosemide [Lasix] 20 mg PO DAILY 06/18/24 06/18/24 History Levothyroxine Sodium [Synthroid] 100 mcg PO DAILY 06/18/24 06/18/24 History Memantine HCl [Memantine HCl ER] 7 mg PO DAILY 06/18/24 06/18/24 History Methylphenidate HCl [Ritalin] 10 mg PO BID 06/18/24 06/18/24 History QUEtiapine [SEROquel] 12.5 mg PO BID 06/18/24 06/18/24 History Allergies Allergy/AdvReac Type Severity Reaction Status Date / Time adhesive tape Allergy Rash/Hives Verified 06/18/24 10:35 Penicillins Allergy Rash/Hives Verified 06/18/24 10:35 Physical Exam Vitals: Vital Signs Temp Pulse Resp BP Pulse Ox 06/18/24 16:01 73 20 151/60 98 06/18/24 13:41 71 20 133/51 98 06/18/24 10:32 72 14 130/55 98 06/18/24 08:29 74 14 142/60 98 06/18/24 01:00 76 18 127/59 98 06/18/24 00:00 98.8 F 74 20 118/55 97 06/17/24 23:00 81 20 102/55 98 06/17/24 22:00 82 17 129/67 98 06/17/24 20:13 76 19 120/62 97 06/17/24 19:08 98.4 F 79 18 130/61 97 06/17/24 18:50 72 18 124/53 98 06/17/24 17:22 100 F H 74 17 133/60 100 Intake and Output 06/18/24 06/18/24 06/18/24 06:59 14:59 22:59 Intake Total 37.107 Output Total 350 Balance 37.107 -350 Intake: Intake, IV Titration 37.107 Amount Heparin Sod,Pork in 0.45% 37.107 NaCl 25,000 unit In 0.45 % NaCl 1 250ml.bag @ 12 UNITS/KG/HR 7.348 mls/hr IV .Q24H [facility] Rx#: [id number] Output: Urine 350 Uretheral (Barger) 350 Other: # Bowel Movements 1 Results CBC & Chem 7: 12/16/24 06:37 06/18/24 06:37 Labs: Abnormal Lab Results - Last 24 Hours (Table) 06/17/24 06/17/24 06/17/24 Range/Units 17:57 17:57 17:57 WBC 14.2 H (3.8-10.6) k/uL RBC 3.43 L (3.80-5.40) m/uL Hgb 11.3 L (11.4-16.0) gm/dL Hct (34.0-46.0) % MCV (80.0-100.0) fL Plt Count 77 L (150-450) k/uL Neutrophils # 11.9 H (1.3-7.7) k/uL PT (10.0-12.5) sec INR (<1.2) APTT 21.3 L (22.0-30.0) sec Sodium 134 L (137-145) mmol/L Chloride (98-107) mmol/L Carbon Dioxide (22-30) mmol/L BUN 47 H (7-17) mg/dL Creatinine 1.07 H (0.52-1.04) mg/dL Glucose 127 H (74-99) mg/dL Hemoglobin A1c (<=6.0) % Calcium 8.3 L (8.4-10.2) mg/dL Troponin I (0.000-0.034) ng/mL C-Reactive Protein (<1.0) mg/dL Total Protein 4.6 L (6.3-8.2) g/dL Albumin 2.5 L (3.5-5.0) g/dL Amylase (30-110) U/L Urine Ketones (Negative) SARS-CoV-2 (PCR) (Not Detectd) 06/17/24 06/17/24 06/17/24 Range/Units 17:57 18:11 18:48 WBC (3.8-10.6) k/uL RBC (3.80-5.40) m/uL Hgb (11.4-16.0) gm/dL Hct (34.0-46.0) % MCV (80.0-100.0) fL Plt Count (150-450) k/uL Neutrophils # (1.3-7.7) k/uL PT (10.0-12.5) sec INR (<1.2) APTT (22.0-30.0) sec Sodium (137-145) mmol/L Chloride (98-107) mmol/L Carbon Dioxide (22-30) mmol/L BUN (7-17) mg/dL Creatinine (0.52-1.04) mg/dL Glucose (74-99) mg/dL Hemoglobin A1c (<=6.0) % Calcium (8.4-10.2) mg/dL Troponin I 0.076 H* (0.000-0.034) ng/mL C-Reactive Protein (<1.0) mg/dL Total Protein (6.3-8.2) g/dL Albumin (3.5-5.0) g/dL Amylase (30-110) U/L Urine Ketones 1+ H (Negative) SARS-CoV-2 (PCR) Detected A (Not Detectd) 06/17/24 06/18/24 06/18/24 Range/Units 21:12 00:01 02:23 WBC (3.8-10.6) k/uL RBC (3.80-5.40) m/uL Hgb (11.4-16.0) gm/dL Hct (34.0-46.0) % MCV (80.0-100.0) fL Plt Count (150-450) k/uL Neutrophils # (1.3-7.7) k/uL PT 12.6 H (10.0-12.5) sec INR 1.2 H (<1.2) APTT 21.9 L (22.0-30.0) sec Sodium (137-145) mmol/L Chloride (98-107) mmol/L Carbon Dioxide (22-30) mmol/L BUN (7-17) mg/dL Creatinine (0.52-1.04) mg/dL Glucose (74-99) mg/dL Hemoglobin A1c (<=6.0) % Calcium (8.4-10.2) mg/dL Troponin I 0.095 H* 0.108 H* (0.000-0.034) ng/mL C-Reactive Protein (<1.0) mg/dL Total Protein (6.3-8.2) g/dL Albumin (3.5-5.0) g/dL Amylase (30-110) U/L Urine Ketones (Negative) SARS-CoV-2 (PCR) (Not Detectd) 06/18/24 06/18/24 06/18/24 Range/Units 06:37 06:37 07:42 WBC 11.8 H (3.8-10.6) k/uL RBC 3.17 L (3.80-5.40) m/uL Hgb 10.3 L (11.4-16.0) gm/dL Hct 31.9 L (34.0-46.0) % MCV 100.5 H (80.0-100.0) fL Plt Count 63 L (150-450) k/uL Neutrophils # 9.5 H (1.3-7.7) k/uL PT (10.0-12.5) sec INR (<1.2) APTT 42.2 H (22.0-30.0) sec Sodium 136 L (137-145) mmol/L Chloride 109 H (98-107) mmol/L Carbon Dioxide 21 L (22-30) mmol/L BUN 42 H (7-17) mg/dL Creatinine (0.52-1.04) mg/dL Glucose 102 H (74-99) mg/dL Hemoglobin A1c (<=6.0) % Calcium 8.0 L (8.4-10.2) mg/dL Troponin I (0.000-0.034) ng/mL C-Reactive Protein (<1.0) mg/dL Total Protein (6.3-8.2) g/dL Albumin (3.5-5.0) g/dL Amylase (30-110) U/L Urine Ketones (Negative) SARS-CoV-2 (PCR) (Not Detectd) 06/18/24 06/18/24 06/18/24 Range/Units 09:59 09:59 09:59 WBC (3.8-10.6) k/uL RBC (3.80-5.40) m/uL Hgb (11.4-16.0) gm/dL Hct (34.0-46.0) % MCV (80.0-100.0) fL Plt Count (150-450) k/uL Neutrophils # (1.3-7.7) k/uL PT (10.0-12.5) sec INR (<1.2) APTT (22.0-30.0) sec Sodium (137-145) mmol/L Chloride (98-107) mmol/L Carbon Dioxide (22-30) mmol/L BUN (7-17) mg/dL Creatinine (0.52-1.04) mg/dL Glucose (74-99) mg/dL Hemoglobin A1c 6.1 H (<=6.0) % Calcium (8.4-10.2) mg/dL Troponin I (0.000-0.034) ng/mL C-Reactive Protein 3.8 H (<1.0) mg/dL Total Protein (6.3-8.2) g/dL Albumin (3.5-5.0) g/dL Amylase 408 H* (30-110) U/L Urine Ketones (Negative) SARS-CoV-2 (PCR) (Not Detectd)
--- NOTE | 2024-06-18 17:53 | P.HPIM ---
History of Present Illness H&P Date: 06/18/24 This is a continuation of the admission history and physical. The final impression on the admission 1. Failure to thrive, not eating not drinking not urinating, and incontinent 2. Severe dehydration 3. Anemia 4. Dementia probably set in #5 Hypothyroidism 6. Severe aortic stenosis 7. Depression and anxiety 8. Coronary artery disease and atherosclerotic heart disease 9. Peripheral vascular disease with the status post aortobifem 10. Rheumatoid arthritis 11. Recurrent ecchymosis and skin tear 12. 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 13. Protein calorie deficiency mild 14. Diabetes mellitus type 2. Investigation chest x-ray no acute pulmonary process, hiatal hernia CT scan of the brain: No acute intracranial process with the recommendation of MRI for follow-up #2 chronic confluent preventricular white matter ischemic changes she had on her frees previous visit on dated 06/15/2024 in the ER at [facility] and she had x-ray of the pelvis no acute osseous pathology with mild degeneration of the hip also they did at the same date x-ray of the pelvis no acute osseous abnormality . She h underwent Change of mental status ad also x-ray on 06/15/2024 of the right knee and impression no acute osseous pathology mild tricompartmental osteoarthritis changes. Vital sign on ER presentation: Temperature 100 F, pulse rate 74 bpm, respiratory rate 17/min, her blood pressure 133/60, with the pulse ox was 100%. And that was dated on 06/17/2024 at the time of arrival to the ER at 1720 2 PM. Plan: 1. Hydration 2. Consultation with cardiology, infectious disease, Neurology for evaluation of patient neurological abnormalities. 3. Insulin to scale 4. Consultation with dietitian, case mgr, social service. 5. retirement for continue rehabilitation and conditioning. 6. Adjustment on her medication with gradual introducing all her medication. 7. Once the patient improving we may have to consult psychiatry for evaluation and treatment as long as the patient will be going to a [facility]. With the appropriateness of the use of the Edmundo 30 date 10 mg once daily. Currently 8 methylphenidate has been held and 12 the patient able to wake up as well as able to eat. Also the atypical antipsychotic has been withheld as well Seroquel. 9. IV fluid, cardiac evaluation was ordered by Dr. Jernigan who did evaluated the patient. Past Medical History Past Medical History: Cancer, Heart Failure, Diabetes Mellitus, GERD/Reflux, Hyperlipidemia, Hypertension, Memory Impairment, Rheumatoid Arthritis (RA), Thyroid Disorder Additional Past Medical History / Comment(s): States age related memory impairment. 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 Hx right breast cancer had a lumpectomy and radiaiton tx,, aortic aneurysm(sx done). [facility] "leaky heart valve", bowel obstruction with no sx, j ust colonoscopy and egd done. History of Any Multi-Drug Resistant Organisms: None Reported Past Surgical History: Appendectomy, Back Surgery, Breast Surgery, Heart Catheterization, Tonsillectomy, Tubal Ligation Additional Past Surgical History / Comment(s): Surgery for arortic aneurysm, surgery on toes of bilateral feet, ablation done on back X2, had uvula removed.lt carpal tunnel release, beverly cataracts, beverly carotid endarterectomy, partial rt mastectomy. colonoscopy/egd/esophgeal dilations, laminectomy/past pain clinic procedures, bunionectomy beverly feet. Past Anesthesia/Blood Transfusion Reactions: No Reported Reaction Past Psychological History: No Psychological Hx Reported, Anxiety, Bipolar, Depression Smoking Status: Former smoker Past Alcohol Use History: None Reported Past Drug Use History: None Reported - Past Family History Sister(s) Family Medical History: Cancer Additional Family Medical History / Comment(s): Aneurysm. States 3 of her sisters had cancer. Father Additional Family Medical History / Comment(s): Anerysym Mother Additional Family Medical History / Comment(s): Aneurysm Brother(s) Additional Family Medical History / Comment(s): Aneurysm Medications and Allergies Home Medications Medication Instructions Recorded Confirmed Type Etanercept [Enbrel] 50 mg SQ WEEKLY 05/16/18 06/18/24 History predniSONE 5 mg PO DAILY 08/28/20 06/18/24 History Potassium Chloride [Klor-Con 10 ER] 10 meq PO DAILY 04/14/21 06/18/24 History Ranolazine [Ranolazine ER] 500 mg PO Q12HR 12/25/21 06/18/24 History Metoprolol Tartrate [Lopressor] 12.5 mg PO BID 11/26/22 06/18/24 History Furosemide [Lasix] 20 mg PO DAILY 06/18/24 06/18/24 History Levothyroxine Sodium [Synthroid] 100 mcg PO DAILY 06/18/24 06/18/24 History Memantine HCl [Memantine HCl ER] 7 mg PO DAILY 06/18/24 06/18/24 History Methylphenidate HCl [Ritalin] 10 mg PO BID 06/18/24 06/18/24 History QUEtiapine [SEROquel] 12.5 mg PO BID 06/18/24 06/18/24 History Allergies Allergy/AdvReac Type Severity Reaction Status Date / Time adhesive tape Allergy Rash/Hives Verified 06/18/24 10:35 Penicillins Allergy Rash/Hives Verified 06/18/24 10:35 Physical Exam Vitals: Vital Signs Temp Pulse Resp BP Pulse Ox 06/18/24 16:01 73 20 151/60 98 06/18/24 13:41 71 20 133/51 98 06/18/24 10:32 72 14 130/55 98 06/18/24 08:29 74 14 142/60 98 06/18/24 01:00 76 18 127/59 98 06/18/24 00:00 98.8 F 74 20 118/55 97 06/17/24 23:00 81 20 102/55 98 06/17/24 22:00 82 17 129/67 98 06/17/24 20:13 76 19 120/62 97 06/17/24 19:08 98.4 F 79 18 130/61 97 06/17/24 18:50 72 18 124/53 98 Intake and Output 06/18/24 06/18/24 06/18/24 06:59 14:59 22:59 Intake Total 37.107 Output Total 350 Balance 37.107 -350 Intake: Intake, IV Titration 37.107 Amount Heparin Sod,Pork in 0.45% 37.107 NaCl 25,000 unit In 0.45 % NaCl 1 250ml.bag @ 12 UNITS/KG/HR 7.348 mls/hr IV .Q24H [facility] Rx#: [id number] Output: Urine 350 Uretheral (Barger) 350 Other: # Bowel Movements 1 Results CBC & Chem 7: 06/18/24 06:37 06/18/24 06:37 Labs: Abnormal Lab Results - Last 24 Hours (Table) 06/17/24 06/17/24 06/17/24 Range/Units 17:57 17:57 17:57 WBC 14.2 H (3.8-10.6) k/uL RBC 3.43 L (3.80-5.40) m/uL Hgb 11.3 L (11.4-16.0) gm/dL Hct (34.0-46.0) % MCV (80.0-100.0) fL Plt Count 77 L (150-450) k/uL Neutrophils # 11.9 H (1.3-7.7) k/uL PT (10.0-12.5) sec INR (<1.2) APTT 21.3 L (22.0-30.0) sec Sodium 134 L (137-145) mmol/L Chloride (98-107) mmol/L Carbon Dioxide (22-30) mmol/L BUN 47 H (7-17) mg/dL Creatinine 1.07 H (0.52-1.04) mg/dL Glucose 127 H (74-99) mg/dL Hemoglobin A1c (<=6.0) % Calcium 8.3 L (8.4-10.2) mg/dL Troponin I (0.000-0.034) ng/mL C-Reactive Protein (<1.0) mg/dL Total Protein 4.6 L (6.3-8.2) g/dL Albumin 2.5 L (3.5-5.0) g/dL Amylase (30-110) U/L Urine Ketones (Negative) SARS-CoV-2 (PCR) (Not Detectd) 06/17/24 06/17/24 06/17/24 Range/Units 17:57 18:11 18:48 WBC (3.8-10.6) k/uL RBC (3.80-5.40) m/uL Hgb (11.4-16.0) gm/dL Hct (34.0-46.0) % MCV (80.0-100.0) fL Plt Count (150-450) k/uL Neutrophils # (1.3-7.7) k/uL PT (10.0-12.5) sec INR (<1.2) APTT (22.0-30.0) sec Sodium (137-145) mmol/L Chloride (98-107) mmol/L Carbon Dioxide (22-30) mmol/L BUN (7-17) mg/dL Creatinine (0.52-1.04) mg/dL Glucose (74-99) mg/dL Hemoglobin A1c (<=6.0) % Calcium (8.4-10.2) mg/dL Troponin I 0.076 H* (0.000-0.034) ng/mL C-Reactive Protein (<1.0) mg/dL Total Protein (6.3-8.2) g/dL Albumin (3.5-5.0) g/dL Amylase (30-110) U/L Urine Ketones 1+ H (Negative) SARS-CoV-2 (PCR) Detected A (Not Detectd) 06/17/24 06/18/24 06/18/24 Range/Units 21:12 00:01 02:23 WBC (3.8-10.6) k/uL RBC (3.80-5.40) m/uL Hgb (11.4-16.0) gm/dL Hct (34.0-46.0) % MCV (80.0-100.0) fL Plt Count (150-450) k/uL Neutrophils # (1.3-7.7) k/uL PT 12.6 H (10.0-12.5) sec INR 1.2 H (<1.2) APTT 21.9 L (22.0-30.0) sec Sodium (137-145) mmol/L Chloride (98-107) mmol/L Carbon Dioxide (22-30) mmol/L BUN (7-17) mg/dL Creatinine (0.52-1.04) mg/dL Glucose (74-99) mg/dL Hemoglobin A1c (<=6.0) % Calcium (8.4-10.2) mg/dL Troponin I 0.095 H* 0.108 H* (0.000-0.034) ng/mL C-Reactive Protein (<1.0) mg/dL Total Protein (6.3-8.2) g/dL Albumin (3.5-5.0) g/dL Amylase (30-110) U/L Urine Ketones (Negative) SARS-CoV-2 (PCR) (Not Detectd) 06/18/24 06/18/24 06/18/24 Range/Units 06:37 06:37 07:42 WBC 11.8 H (3.8-10.6) k/uL RBC 3.17 L (3.80-5.40) m/uL Hgb 10.3 L (11.4-16.0) gm/dL Hct 31.9 L (34.0-46.0) % MCV 100.5 H (80.0-100.0) fL Plt Count 63 L (150-450) k/uL Neutrophils # 9.5 H (1.3-7.7) k/uL PT (10.0-12.5) sec INR (<1.2) APTT 42.2 H (22.0-30.0) sec Sodium 136 L (137-145) mmol/L Chloride 109 H (98-107) mmol/L Carbon Dioxide 21 L (22-30) mmol/L BUN 42 H (7-17) mg/dL Creatinine (0.52-1.04) mg/dL Glucose 102 H (74-99) mg/dL Hemoglobin A1c (<=6.0) % Calcium 8.0 L (8.4-10.2) mg/dL Troponin I (0.000-0.034) ng/mL C-Reactive Protein (<1.0) mg/dL Total Protein (6.3-8.2) g/dL Albumin (3.5-5.0) g/dL Amylase (30-110) U/L Urine Ketones (Negative) SARS-CoV-2 (PCR) (Not Detectd) 06/18/24 06/18/24 06/18/24 Range/Units 09:59 09:59 09:59 WBC (3.8-10.6) k/uL RBC (3.80-5.40) m/uL Hgb (11.4-16.0) gm/dL Hct (34.0-46.0) % MCV (80.0-100.0) fL Plt Count (150-450) k/uL Neutrophils # (1.3-7.7) k/uL PT (10.0-12.5) sec INR (<1.2) APTT (22.0-30.0) sec Sodium (137-145) mmol/L Chloride (98-107) mmol/L Carbon Dioxide (22-30) mmol/L BUN (7-17) mg/dL Creatinine (0.52-1.04) mg/dL Glucose (74-99) mg/dL Hemoglobin A1c 6.1 H (<=6.0) % Calcium (8.4-10.2) mg/dL Troponin I (0.000-0.034) ng/mL C-Reactive Protein 3.8 H (<1.0) mg/dL Total Protein (6.3-8.2) g/dL Albumin (3.5-5.0) g/dL Amylase 408 H* (30-110) U/L Urine Ketones (Negative) SARS-CoV-2 (PCR) (Not Detectd)
[2024-06-18] MEDS: METOPROLOL TARTRATE 12.5 MG TAB PO SCH (20:15)
[2024-06-18] MEDS: RANOLAZINE 500 MG TAB.ER.12H PO SCH (20:15)
--- NOTE | 2024-06-18 20:36 | P.CONS ---
History of Present Illness - Reason for Consult Consult date: 06/18/24 COVID-19 Requesting physician: Issac Olivia - Chief Complaint Weakness decreased appetite x 2 days - History of Present Illness Patient is a 89-year-old female with a past medical history significant for type 2 diabetes mellitus hide for your dementia apparently patient was recently evaluated at the [facility] ER on Tuesday that is 2 days before the presentation with a fall and weakness apparently the son has mentioned to the ER physician patient has not getting out of the bed since Tuesday has been very weak and confused not able to eat or drink and did have urinary and stool incontinence with the symptoms the patient has been brought into the hospital on arrival to the ER the patient did have a low-grade fever of 100 F patient did not have any fever afterwards patient was nontachycardic hypotensive or hypoxic currently 98% on room air she did have white count of 11.8 with a left shift BUN was elevated creatinine was normal UA has been negative patient tested positive for COVID-19 did have a chest x-ray that was reported negative for acute infiltrate CT of the brain was negative for any bleed patient has been admitted to hospital infectious disease was consulted because of COVID-19 most information has been obtained from review the chart as the patient did not provide any history has been complaining of feeling weak and cold but did not provide any history of any headache chest pain shortness of breath or cough no vomiting or diarrhea Review of Systems Positive points has been mentioned in HPI complete review could not be obtained because of his underlying mental status Past Medical History Past Medical History: Cancer, Heart Failure, Diabetes Mellitus, GERD/Reflux, Hy perlipidemia, Hypertension, Memory Impairment, Rheumatoid Arthritis (RA), Thyroid Disorder Additional Past Medical History / Comment(s): States age related memory impairment. 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 Hx right breast cancer had a lumpectomy and radiaiton tx,, aortic aneurysm(sx done). per [facility] "leaky heart valve", bowel obstruction with no sx, just colonoscopy and egd done. History of Any Multi-Drug Resistant Organisms: None Reported Past Surgical History: Appendectomy, Back Surgery, Breast Surgery, Heart Catheterization, Tonsillectomy, Tubal Ligation Additional Past Surgical History / Comment(s): Surgery for arortic aneurysm, surgery on toes of bilateral feet, ablation done on back X2, had uvula removed.lt carpal tunnel release, beverly cataracts, beverly carotid endarterectomy, partial rt mastectomy. colonoscopy/egd/esophgeal dilations, laminectomy/past pain clinic procedures, bunionectomy beverly feet. Past Anesthesia/Blood Transfusion Reactions: No Reported Reaction Past Psychological History: No Psychological Hx Reported, Anxiety, Bipolar, Depression Smoking Status: Former smoker Past Alcohol Use History: None Reported Past Drug Use History: None Reported - Past Family History Sister(s) Family Medical History: Cancer Additional Family Medical History / Comment(s): Aneurysm. States 3 of her sisters had cancer. Father Additional Family Medical History / Comment(s): Anerysym Mother Additional Family Medical History / Comment(s): Aneurysm Brother(s) Additional Family Medical History / Comment(s): Aneurysm Medications and Allergies Home Medications Medication Instructions Recorded Confirmed Type predniSONE 5 mg PO DAILY 08/28/20 06/18/24 History Potassium Chloride [Klor-Con 10 ER] 10 meq PO DAILY 04/14/21 06/18/24 History Ranolazine [Ranolazine ER] 500 mg PO Q12HR 12/25/21 06/18/24 History Metoprolol Tartrate [Lopressor] 12.5 mg PO BID 11/26/22 06/18/24 History Levothyroxine Sodium [Synthroid] 100 mcg PO DAILY 06/18/24 06/18/24 History Memantine HCl [Memantine HCl ER] 7 mg PO DAILY 06/18/24 06/18/24 History QUEtiapine [SEROquel] 12.5 mg PO BID 06/18/24 06/18/24 History Acetaminophen Tab [Tylenol] 650 mg PO Q6HR PRN tab 06/26/24 Rx Ascorbic Acid [Vitamin C] 1,000 mg PO DAILY tab 06/26/24 Rx Aspirin 81 mg PO DAILY tab 06/26/24 Rx Atorvastatin [Lipitor] 40 mg PO HS tab 06/26/24 Rx FLUoxetine HCL [PROzac] 20 mg PO DAILY cap 06/26/24 Rx Isosorbide Mononitrate ER [Imdur] 30 mg PO DAILY tab 06/26/24 Rx Melatonin 2 mg PO HS tab 06/26/24 Rx Zinc Sulfate [Orazinc] 220 mg PO DAILY cap 06/26/24 Rx Allergies Allergy/AdvReac Type Severity Reaction Status Date / Time adhesive tape Allergy Rash/Hives Verified 06/18/24 10:35 Penicillins Allergy Rash/Hives Verified 06/18/24 10:35 Physical Exam Vitals: Vital Signs Temp Pulse Resp BP Pulse Ox 06/18/24 10:32 72 14 130/55 98 06/18/24 08:29 74 14 142/60 98 06/18/24 01:00 76 18 127/59 98 06/18/24 00:00 98.8 F 74 20 118/55 97 06/17/24 23:00 81 20 102/55 98 06/17/24 22:00 82 17 129/67 98 06/17/24 20:13 76 19 120/62 97 06/17/24 19:08 98.4 F 79 18 130/61 97 06/17/24 18:50 72 18 124/53 98 06/17/24 17:22 100 F H 74 17 133/60 100 Intake and Output 06/17/24 06/18/24 06/18/24 22:59 06:59 14:59 Intake Total 37.107 Balance 37.107 Intake: Intake, IV Titration 37.107 Amount Heparin Sod,Pork in 0.45% 37.107 NaCl 25,000 unit In 0.45 % NaCl 1 250ml.bag @ 12 UNITS/KG/HR 7.348 mls/hr IV .Q24H [facility] Rx#: [id number] Other: Voiding Method Diaper Incontinent Weight 61.235 kg GENERAL DESCRIPTION: Elderly female lying in bed, no distress. No tachypnea or accessory muscle of respiration use. HEENT: Shows Pallor , no scleral icterus. Oral mucous membrane is dry. NECK: Trachea central, no thyromegaly. LUNGS: Unlabored breathing. Clear to auscultation anteriorly. No wheeze or crackle. HEART: S1, S2, regular rate and rhythm. No loud murmur ABDOMEN: Soft, no tenderness , guarding or rigidity, no organomegaly EXTREMITIES: Did have laceration to the right lower leg and ankle area but no redness SKIN: No rash, no masses palpable. NEUROLOGICAL: The patient is sleepy lethargic orientation could not be determined Results CBC & Chem 7: 06/25/24 07:35 06/25/24 07:35 Labs: Abnormal Lab Results - Last 24 Hours (Table) 06/17/24 06/17/24 06/17/24 Range/Units 17:57 17:57 17:57 WBC 14.2 H (3.8-10.6) k/uL RBC 3.43 L (3.80-5.40) m/uL Hgb 11.3 L (11.4-16.0) gm/dL Hct (34.0-46.0) % MCV (80.0-100.0) fL Plt Count 77 L (150-450) k/uL Neutrophils # 11.9 H (1.3-7.7) k/uL PT (10.0-12.5) sec INR (<1.2) APTT 21.3 L (22.0-30.0) sec Sodium 134 L (137-145) mmol/L Chloride (98-107) mmol/L Carbon Dioxide (22-30) mmol/L BUN 47 H (7-17) mg/dL Creatinine 1.07 H (0.52-1.04) mg/dL Glucose 127 H (74-99) mg/dL Calcium 8.3 L (8.4-10.2) mg/dL Troponin I (0.000-0.034) ng/mL C-Reactive Protein (<1.0) mg/dL Total Protein 4.6 L (6.3-8.2) g/dL Albumin 2.5 L (3.5-5.0) g/dL Urine Ketones (Negative) SARS-CoV-2 (PCR) (Not Detectd) 06/17/24 06/17/24 06/17/24 Range/Units 17:57 18:11 18:48 WBC (3.8-10.6) k/uL RBC (3.80-5.40) m/uL Hgb (11.4-16.0) gm/dL Hct (34.0-46.0) % MCV (80.0-100.0) fL Plt Count (150-450) k/uL Neutrophils # (1.3-7.7) k/uL PT (10.0-12.5) sec INR (<1.2) APTT (22.0-30.0) sec Sodium (137-145) mmol/L Chloride (98-107) mmol/L Carbon Dioxide (22-30) mmol/L BUN (7-17) mg/dL Creatinine (0.52-1.04) mg/dL Glucose (74-99) mg/dL Calcium (8.4-10.2) mg/dL Troponin I 0.076 H* (0.000-0.034) ng/mL C-Reactive Protein (<1.0) mg/dL Total Protein (6.3-8.2) g/dL Albumin (3.5-5.0) g/dL Urine Ketones 1+ H (Negative) SARS-CoV-2 (PCR) Detected A (Not Detectd) 06/17/24 06/18/24 06/18/24 Range/Units 21:12 00:01 02:23 WBC (3.8-10.6) k/uL RBC (3.80-5.40) m/uL Hgb (11.4-16.0) gm/dL Hct (34.0-46.0) % MCV (80.0-100.0) fL Plt Count (150-450) k/uL Neutrophils # (1.3-7.7) k/uL PT 12.6 H (10.0-12.5) sec INR 1.2 H (<1.2) APTT 21.9 L (22.0-30.0) sec Sodium (137-145) mmol/L Chloride (98-107) mmol/L Carbon Dioxide (22-30) mmol/L BUN (7-17) mg/dL Creatinine (0.52-1.04) mg/dL Glucose (74-99) mg/dL Calcium (8.4-10.2) mg/dL Troponin I 0.095 H* 0.108 H* (0.000-0.034) ng/mL C-Reactive Protein (<1.0) mg/dL Total Protein (6.3-8.2) g/dL Albumin (3.5-5.0) g/dL Urine Ketones (Negative) SARS-CoV-2 (PCR) (Not Detectd) 06/18/24 06/18/24 06/18/24 Range/Units 06:37 06:37 07:42 WBC 11.8 H (3.8-10.6) k/uL RBC 3.17 L (3.80-5.40) m/uL Hgb 10.3 L (11.4-16.0) gm/dL Hct 31.9 L (34.0-46.0) % MCV 100.5 H (80.0-100.0) fL Plt Count 63 L (150-450) k/uL Neutrophils # 9.5 H (1.3-7.7) k/uL PT (10.0-12.5) sec INR (<1.2) APTT 42.2 H (22.0-30.0) sec Sodium 136 L (137-145) mmol/L Chloride 109 H (98-107) mmol/L Carbon Dioxide 21 L (22-30) mmol/L BUN 42 H (7-17) mg/dL Creatinine (0.52-1.04) mg/dL Glucose 102 H (74-99) mg/dL Calcium 8.0 L (8.4-10.2) mg/dL Troponin I (0.000-0.034) ng/mL C-Reactive Protein (<1.0) mg/dL Total Protein (6.3-8.2) g/dL Albumin (3.5-5.0) g/dL Urine Ketones (Negative) SARS-CoV-2 (PCR) (Not Detectd) 06/18/24 Range/Units 09:59 WBC (3.8-10.6) k/uL RBC (3.80-5.40) m/uL Hgb (11.4-16.0) gm/dL Hct (34.0-46.0) % MCV (80.0-100.0) fL Plt Count (150-450) k/uL Neutrophils # (1.3-7.7) k/uL PT (10.0-12.5) sec INR (<1.2) APTT (22.0-30.0) sec Sodium (137-145) mmol/L Chloride (98-107) mmol/L Carbon Dioxide (22-30) mmol/L BUN (7-17) mg/dL Creatinine (0.52-1.04) mg/dL Glucose (74-99) mg/dL Calcium (8.4-10.2) mg/dL Troponin I (0.000-0.034) ng/mL C-Reactive Protein 3.8 H (<1.0) mg/dL Total Protein (6.3-8.2) g/dL Albumin (3.5-5.0) g/dL Urine Ketones (Negative) SARS-CoV-2 (PCR) (Not Detectd) Assessment and Plan (1) Leukocytosis Status: Acute Code(s): D72.829 - ELEVATED WHITE BLOOD CELL COUNT, UNSPECIFIED SNOMED Code(s): 499025928 (2) COVID-19 Status: Acute Code(s): U07.1 - COVID-19 SNOMED Code(s): 029404346 Plan: 1patient presented to hospital with generalized weakness in this patient who also recently have a fall and tested positive for COVID-19 could be responsible for her symptoms however the patient is currently not hypoxic and no evidence of any acute infiltrate on chest x-ray treatment will be mostly supportive and currently do not qualify for remdesivir or steroids 2-patient also have mildly elevated white count possibly reactive as no obvious focus she did have some swelling and excoriation lower extremity with no cellulitis urine was negative and no evidence of any abdominal tenderness 3-penicillin allergy that will limit the number of antibiotics safe to use 4-we will check inflammatory marker as well as procalcitonin, blood culture has been pain results will be followed 5-on empiric Rocephin add zinc ascorbic acid We will follow on clinical condition and cultures to further adjust medication if needed Thank you for this consultation we will follow the patient along with you Dictation was produced using [employer] dictation software. please excuse any grammatical, word or spelling errors. Time with Patient: Greater than 30
[2024-06-18 21:54] LABS: Glucose,Whole Blood 180 mg/dL (70-110)
[2024-06-19] MEDS: LEVOTHYROXINE 100 MCG TAB PO SCH (06:00)
[2024-06-19 06:54] LABS: Basophils % (A) 0 %; Eosinophils # (A) 0.1 k/uL (0-0.7); Eosinophils % (A) 1 %; HCT 24.4 % (34.0-46.0); Lymphocytes # (A) 1.1 k/uL (1.0-4.8); Lymphocytes % (A) 11 %; MCH 33.5 pg (25.0-35.0); MCHC 33.3 g/dL (31.0-37.0); MCV 100.7 fL (80.0-100.0); Macrocytosis Slight; Mean Platelet Volume 8.8; Monocytes # (A) 0.6 k/uL (0-1.0); Monocytes % (A) 6 %; Neutrophils # (A) 7.8 k/uL (1.3-7.7); Neutrophils % (A) 81 %; RBC 2.42 m/uL (3.80-5.40); RDW 15.2 % (11.5-15.5); WBC 9.6 k/uL (3.8-10.6)
[2024-06-19 06:58] LABS: HGB 8.1 gm/dL (11.4-16.0)
[2024-06-19 06:59] LABS: Platelet Count 76 k/uL (150-450)
[2024-06-19 07:15] LABS: INR 1.4 (<1.2); Prothrombin Time 14.4 sec (10.0-12.5)
--- NOTE | 2024-06-19 07:28 | P.CNNES ---
History of Present Illness Consult date: 06/19/24 Reason for Consult: Altered mental status status post fall with history of dementia. Chief complaint: "I do not know why I am here." History of Present Illness: Ms. Collazo is an 89-year-old female right-handed with medical history of dementia, hiatal hernia, CHF, diabetes, breast cancer, GERD, hyperlipidemia, hypertension, rheumatoid arthritis, thyroid problem, peripheral vascular disease as well as aortic aneurysm. Patient was seen and is admitted to [facility] on June 18 after she fell 2 days prior at home. She is cared for by her at home but he did not feel he could continue to take care of her following her fall as she did not appear to get out of bed. She was also weak and confused and not taking oral feeding. She did have some urinary as well as bowel incontinence as well but no documented seizure activity. The assists with her activities of daily living and says he is unable to do this at this time. When questioned the patient is oriented to month but not to place. She will follow simple and complex commands and neurologic exam is nonfocal. CT scan revealed atrophy as well as some confluent subcortical white matter disease and a lacunar in the left internal capsule. So far workup for etiology of altered mental status has been negative save for a white blood cell count slightly elevated at 14.2. She is receiving Rocephin at this time. She also gets up prednisone 5 mg daily for likely rheumatoid arthritis. Neurology has been consulted for further management recommendations. Review of Systems All systems: negative Eyes: bilateral blurred vision Cardiovascular: Reports chest pain Endocrine: Reports heat intolerance Past Medical History Past Medical History: Cancer, Heart Failure, Diabetes Mellitus, GERD/Reflux, Hyperlipidemia, Hypertension, Memory Impairment, Rheumatoid Arthritis (RA), Thyroid Disorder Additional Past Medical History / Comment(s): States age related memory impairment. 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 Hx right breast cancer had a lumpectomy and radiaiton tx,, aortic aneurysm(sx done). per h "leaky heart valve", bowel obstruction with no sx, just colonoscopy and egd done. History of Any Multi-Drug Resistant Organisms: None Reported Past Surgical History: Appendectomy, Back Surgery, Breast Surgery, Heart Catheterization, Tonsillectomy, Tubal Ligation Additional Past Surgical History / Comment(s): Surgery for arortic aneurysm, surgery on toes of bilateral feet, ablation done on back X2, had uvula removed.lt carpal tunnel release, beverly cataracts, beverly carotid endarterectomy, partial rt mastectomy. colonoscopy/egd/esophgeal dilations, laminectomy/past pain clinic procedures, bunionectomy beverly feet. Past Anesthesia/Blood Transfusion Reactions: No Reported Reaction Past Psychological History: No Psychological Hx Reported, Anxiety, Bipolar, Depression Smoking Status: Former smoker Past Alcohol Use History: None Reported Past Drug Use History: None Reported - Past Family History Sister(s) Family Medical History: Cancer Additional Family Medical History / Comment(s): Aneurysm. States 3 of her siste rs had cancer. Father Additional Family Medical History / Comment(s): Anerysym Mother Additional Family Medical History / Comment(s): Aneurysm Brother(s) Additional Family Medical History / Comment(s): Aneurysm Medications and Allergies Home Medications Medication Instructions Recorded Confirmed Type Etanercept [Enbrel] 50 mg SQ WEEKLY 05/16/18 06/18/24 History predniSONE 5 mg PO DAILY 08/28/20 06/18/24 History Potassium Chloride [Klor-Con 10 ER] 10 meq PO DAILY 04/14/21 06/18/24 History Ranolazine [Ranolazine ER] 500 mg PO Q12HR 12/25/21 06/18/24 History Metoprolol Tartrate [Lopressor] 12.5 mg PO BID 11/26/22 06/18/24 History Furosemide [Lasix] 20 mg PO DAILY 06/18/24 06/18/24 History Levothyroxine Sodium [Synthroid] 100 mcg PO DAILY 06/18/24 06/18/24 History Memantine HCl [Memantine HCl ER] 7 mg PO DAILY 06/18/24 06/18/24 History Methylphenidate HCl [Ritalin] 10 mg PO BID 06/18/24 06/18/24 History QUEtiapine [SEROquel] 12.5 mg PO BID 06/18/24 06/18/24 History Allergies Allergy/AdvReac Type Severity Reaction Status Date / Time adhesive tape Allergy Rash/Hives Verified 06/18/24 10:35 Penicillins Allergy Rash/Hives Verified 06/18/24 10:35 Physical Examination - Vital Signs Vital Signs: Vital Signs Temp Pulse Pulse Resp BP BP Pulse Ox 06/19/24 03:22 98.0 F 61 16 116/49 97 06/19/24 00:00 98.1 F 61 59 L 14 126/47 141/61 97 06/18/24 23:00 61 21 136/59 99 06/18/24 22:00 68 24 125/55 98 06/18/24 21:00 76 21 122/56 98 06/18/24 20:00 92 18 122/56 96 06/18/24 18:02 98 F 78 20 132/73 99 06/18/24 16:01 73 20 151/60 98 06/18/24 13:41 71 20 133/51 98 06/18/24 10:32 72 14 130/55 98 06/18/24 08:29 74 14 142/60 98 Intake and Output 06/18/24 06/19/24 06/19/24 22:59 06:59 14:59 Intake Total 100 Output Total 350 200 Balance -350 -100 Intake: Intake, IV Titration 50 Amount cefTRIAXone 1 gm In 50 Sodium Chloride 0.9% 50 ml @ 100 mls/hr IVPB Q12HR [facility] Rx#:[id number] Oral 50 Output: Urine 350 200 Uretheral (Barger) 350 Other: Voiding Method Indwelling Catheter Patient has evidence of severe bruising over both legs and arms. She has difficulty raising her shoulder bilaterally. - Constitutional General appearance: cooperative, disheveled - EENT EENT: PERRL, hearing diminished - Respiratory Respiratory: chest non-tender, lungs clear - Cardiovascular Cardiovascular: regular rate, no murmurs Extremities: no peripheral edema bilaterally, other (Patient has evidence of extensive bruising to the legs and arms bilaterally.) - Neurologic Cranial nerve examination: PERRL, EOMI, face symmetric, tongue midline Speech examination: intact Detailed motor examination: other (Patient cannot raise at the shoulders however has symmetric handgrip which is moderate and strength bilaterally. She can raise her legs with strength of approximately 2 out of 5 but has pain in both hips when she raises her legs.) Detailed sensory examination: intact Reflex and gait examination: intact - Psychiatric Psychiatric: mood/affect appropriate Results Noncontrast CT of the brain from June 17 reveals confluent periventricular white matter disease with some evidence of atrophy as well as a lacunar in the left anterior limb of the internal capsule. Pertinent laboratories included a slightly elevated white blood cell count of 14.2 creatinine of 1.07 sodium 134 troponin 0.079 elevated amylase at 4.08 hemoglobin A1c of 6.1 CRP elevated at 3.8 TSH of 1.430 and vitamin B-12 level of greater than 3600 and serum ammonia less than 9. - Laboratory Findings CBC and BMP: 06/19/24 06:37 06/18/24 06:37 Abnormal Lab Findings: Abnormal Labs 06/17/24 06/17/24 06/17/24 17:57 17:57 17:57 WBC 14.2 H RBC 3.43 L Hgb 11.3 L Hct MCV Plt Count 77 L Neutrophils # 11.9 H PT INR APTT 21.3 L Sodium 134 L Chloride Carbon Dioxide BUN 47 H Creatinine 1.07 H Glucose 127 H POC Glucose (mg/dL) Hemoglobin A1c Calcium 8.3 L Troponin I C-Reactive Protein Total Protein 4.6 L Albumin 2.5 L Amylase Vitamin B12 Urine Ketones SARS-CoV-2 (PCR) 06/17/24 06/17/24 06/17/24 17:57 18:11 18:48 WBC RBC Hgb Hct MCV Plt Count Neutrophils # PT INR APTT Sodium Chloride Carbon Dioxide BUN Creatinine Glucose POC Glucose (mg/dL) Hemoglobin A1c Calcium Troponin I 0.076 H* C-Reactive Protein Total Protein Albumin Amylase Vitamin B12 Urine Ketones 1+ H SARS-CoV-2 (PCR) Detected A 06/17/24 06/18/24 06/18/24 21:12 00:01 02:23 WBC RBC Hgb Hct MCV Plt Count Neutrophils # PT 12.6 H INR 1.2 H APTT 21.9 L Sodium Chloride Carbon Dioxide BUN Creatinine Glucose POC Glucose (mg/dL) Hemoglobin A1c Calcium Troponin I 0.095 H* 0.108 H* C-Reactive Protein Total Protein Albumin Amylase Vitamin B12 Urine Ketones SARS-CoV-2 (PCR) 06/18/24 06/18/24 06/18/24 06:37 06:37 07:42 WBC 11.8 H RBC 3.17 L Hgb 10.3 L Hct 31.9 L MCV 100.5 H Plt Count 63 L Neutrophils # 9.5 H PT INR APTT 42.2 H Sodium 136 L Chloride 109 H Carbon Dioxide 21 L BUN 42 H Creatinine Glucose 102 H POC Glucose (mg/dL) Hemoglobin A1c Calcium 8.0 L Troponin I C-Reactive Protein Total Protein Albumin Amylase Vitamin B12 Urine Ketones SARS-CoV-2 (PCR) 06/18/24 06/18/24 06/18/24 09:59 09:59 09:59 WBC RBC Hgb Hct MCV Plt Count Neutrophils # PT INR APTT Sodium Chloride Carbon Dioxide BUN Creatinine Glucose POC Glucose (mg/dL) Hemoglobin A1c 6.1 H Calcium Troponin I C-Reactive Protein 3.8 H Total Protein Albumin Amylase 408 H* Vitamin B12 Urine Ketones SARS-CoV-2 (PCR) 06/18/24 06/18/24 06/19/24 16:01 21:52 06:37 WBC RBC 2.42 L Hgb 8.1 L D Hct 24.4 L MCV 100.7 H Plt Count 76 L Neutrophils # 7.8 H PT INR APTT Sodium Chloride Carbon Dioxide BUN Creatinine Glucose POC Glucose (mg/dL) 180 H Hemoglobin A1c Calcium Troponin I C-Reactive Protein Total Protein Albumin Amylase Vitamin B12 >3600.0 H Urine Ketones SARS-CoV-2 (PCR) 06/19/24 06/19/24 06:37 06:37 WBC RBC Hgb Hct MCV Plt Count Neutrophils # PT 14.4 H INR 1.4 H APTT 84.1 H Sodium Chloride Carbon Dioxide BUN Creatinine Glucose POC Glucose (mg/dL) Hemoglobin A1c Calcium Troponin I C-Reactive Protein Total Protein Albumin Amylase Vitamin B12 Urine Ketones SARS-CoV-2 (PCR) Assessment and Plan Assessment: Ms. Collazo is an 89-year-old female with history of dementia. She lives at home and is cared for by her who is having difficulty managing her at home status post fall. She was unable to get out of bed and has some generalized weakness and confusion. She has extensive bruising and states she h as had multiple falls in the past. She does not appear grossly encephalopathic or neurologically focal at this time. Plan: 1. Patient will be admitted to the hospital and physical therapy has been consulted to assist with patient's ambulation. 2. I will prescribe melatonin 5 mg nightly to assist with sleep regulation while the patient is in house. I she does not appear to have any hallucinations, so I will hold on quetiapine unless needed for agitation 3. I would recommend continuing Rocephin at this time for white blood cell count of 14.2. It appears she has not had a urinalysis and I would recommend this as per the primary team's discretion. 4. I do not see a need for an electroencephalogram or MRI at this time but may reconsider based on patient's clinical course. 5. Neurology will continue to follow the patient in house and make further recommendations as needed. Thank you for this consult. Time with Patient: Less than 30
[2024-06-19] MEDS: predniSONE 5 MG TAB PO SCH (09:55)
[2024-06-19] MEDS: ZINC SULFATE 220 MG CAP PO SCH (09:55)
[2024-06-19] MEDS: ASCORBIC ACID 500 MG TAB PO SCH (09:55)
--- NOTE | 2024-06-19 10:15 | P.PN ---
Subjective Progress Note Date: 06/19/24 Reason for Consult (text): NSTEMI History of present illness: This is an 89-year-old female patient of Dr. Sequeira with past medical history of CAD with known severe triple-vessel CAD on cardiac catheterization in 2017, diabetes, hypertension, dyslipidemia, peripheral artery disease, tobacco use. We have been asked to evaluate the patient for NSTEMI. Patient is unresponsive at this time and unable to give any information. According to the patient's nurse, patient was brought into the hospital due to failure to thrive and fdc placement. Patient is currently n.p.o. and not eating not able to take any oral medications. Due to mental status changes, patient is unable to provide any information. Blood pressure 130/55, heart rate 72, pulse ox 98% on room air. Patient is seen today in the emergency center waiting for bed on the cardiac stepdown unit. Patient has been started on a heparin drip. -EKG: Sinus rhythm with PVCs -Chest x-ray: No acute process. Hiatal hernia -Pelvis x-ray: No acute abnormality. -Abdominal x-ray: No acute process -Laboratory studies: WBC initially 14.2, now 11.8, hemoglobin 10.3, platelet count 63. Troponin 0.076, 0.095, 0.108. Amylase 408. Procalcitonin 0.11 influenza A, influenza B, RSV not detected. COVID-19 positive. -Home cardiac medications: Lasix 20 mg daily, metoprolol tartrate 12.5 mg twice daily, potassium chloride 10 mill equivalents daily, Ranexa 500 mg every 12 hours -Echocardiogram performed 05/04/2024 revealed normal EF, mild TR, mild MR, mild to moderate AR. 06/19/2024 Patient seen and examined in the emergency center. Patient is awaiting for a bed on the cardiac stepdown unit. Patient's mental status is much improved today. She has been started on a heparin drip and plan is for medical management. She states she does have a little bit of chest pain. Blood pres sure 105/55, heart rate 67, pulse ox 100% on room air. Repeat blood work reveals hemoglobin 8.1, platelet count 76. Echocardiogram is pending. Physical examination: Gen: This is an 89-year-old female in no acute respiratory distress VS: reviewed HEENT: Head is atraumatic, normocephalic. Pupils equal, round. Sclerae is anicteric. NECK: Supple. No JVD. LUNGS: Clear to auscultation. No wheezes or rhonchi. No intercostal retractions. HEART: Regular rate and rhythm. Significant systolic murmur. ABDOMEN: Soft No tenderness. EXTREMITIES: No pedal edema. No calf tenderness. Dark skin changes to the bilateral lower extremities. Assessment: Metabolic encephalopathy COVID-19 Elevated troponins most likely secondary to COVID-19 Thrombocytopenia Dementia History of severe triple-vessel CAD Diabetes mellitus type 2 Hypertension Dyslipidemia Peripheral artery disease History of tobacco use Plan: Continue patient's home cardiac medications Continue heparin drip for total of 48 hours Obtain 2-D echocardiogram and Doppler study to assess cardiac structure and function No plan for aggressive cardiac workup at this time. Further recommendations to follow based upon clinical course Nurse practitioner note has been reviewed, I agree with documented findings and plan of care. Patient was seen and examined. Objective - Vital Signs Vital signs: Vital Signs Temp 98.0 F 06/19/24 03:22 Pulse 61 06/19/24 03:22 Resp 16 06/19/24 03:22 BP 116/49 06/19/24 03:22 Pulse Ox 97 06/19/24 03:22 FiO2 Intake & Output 06/18/24 06/19/24 06/19/24 18:59 06:59 18:59 Intake Total 37.107 100 Output Total 350 200 Balance -312.893 -100 Intake: Intake, IV Titration 37.107 50 Amount Heparin Sod,Pork in 0.45% 37.107 NaCl 25,000 unit In 0.45 % NaCl 1 250ml.bag @ 12 UNITS/KG/HR 7.348 mls/hr IV .Q24H [facility] Rx#: [id number] cefTRIAXone 1 gm In 50 Sodium Chloride 0.9% 50 ml @ 100 mls/hr IVPB Q12HR [facility] Rx#:[id number] Oral 50 Output: Urine 350 200 Uretheral (Barger) 350 Other: Voiding Method Indwelling Catheter # Bowel Movements 1 - Labs CBC & Chem 7: 06/19/24 06:37 06/18/24 06:37 Labs: Abnormal Lab Results - Last 24 Hours (Table) 06/18/24 06/18/24 06/18/24 Range/Units 09:59 09:59 09:59 RBC (3.80-5.40) m/uL Hgb (11.4-16.0) gm/dL Hct (34.0-46.0) % MCV (80.0-100.0) fL Plt Count (150-450) k/uL Neutrophils # (1.3-7.7) k/uL PT (10.0-12.5) sec INR (<1.2) APTT (22.0-30.0) sec POC Glucose (mg/dL) (70-110) mg/dL Hemoglobin A1c 6.1 H (<=6.0) % C-Reactive Protein 3.8 H (<1.0) mg/dL Amylase 408 H* (30-110) U/L Vitamin B12 (200.0-944.0) pg/mL 06/18/24 06/18/24 06/19/24 Range/Units 16:01 21:52 06:37 RBC 2.42 L (3.80-5.40) m/uL Hgb 8.1 L D (11.4-16.0) gm/dL Hct 24.4 L (34.0-46.0) % MCV 100.7 H (80.0-100.0) fL Plt Count 76 L (150-450) k/uL Neutrophils # 7.8 H (1.3-7.7) k/uL PT (10.0-12.5) sec INR (<1.2) APTT (22.0-30.0) sec POC Glucose (mg/dL) 180 H (70-110) mg/dL Hemoglobin A1c (<=6.0) % C-Reactive Protein (<1.0) mg/dL Amylase (30-110) U/L Vitamin B12 >3600.0 H (200.0-944.0) pg/mL 06/19/24 06/19/24 Range/Units 06:37 06:37 RBC (3.80-5.40) m/uL Hgb (11.4-16.0) gm/dL Hct (34.0-46.0) % MCV (80.0-100.0) fL Plt Count (150-450) k/uL Neutrophils # (1.3-7.7) k/uL PT 14.4 H (10.0-12.5) sec INR 1.4 H (<1.2) APTT 84.1 H (22.0-30.0) sec POC Glucose (mg/dL) (70-110) mg/dL Hemoglobin A1c (<=6.0) % C-Reactive Protein (<1.0) mg/dL Amylase (30-110) U/L Vitamin B12 (200.0-944.0) pg/mL
[2024-06-19] MEDS: ASPIRIN 81 MG PO SCH (10:39)
[2024-06-19] MEDS: ISOSORBIDE MONONITRATE ER 30 MG TAB.ER.24H PO SCH (10:39)
--- NOTE | 2024-06-19 11:25 | CA ---
Transthoracic Echo Report Name: Delmy Collazo Age: 89 Gender: F : 1935 Exam Date: 06/19/2024 09:16 Exam Location: [place] [facility] Ht (in): 64 Wt (lb): 135 Ordering Physician: Margie Ireland Attending/Referring Phys: [id number], Shu Flame Burner Archana Tapia RDCS Procedure CPT: Indications: LVF Cardiac Hx: Technical Quality: Fair Contrast 1: Total Dose (mL): Contrast 2: Total Dose (mL): MEASUREMENTS (Male / Female) Normal Values 2D ECHO LV Diastolic Diameter PLAX 3.1 cm 4.2 - 5.9 / 3.9 - 5.3 cm LV Systolic Diameter PLAX 2.4 cm IVS Diastolic Thickness 1.2 cm 0.6 - 1.0 / 0.6 - 0.9 cm LVPW Diastolic Thickness 1.3 cm 0.6 - 1.0 / 0.6 - 0.9 cm LV Relative Wall Thickness 0.8 RV Internal Dim ED PLAX 2.7 cm LVOT Diameter 2.0 cm LA Systolic Diameter LX 3.5 cm 3.0 - 4.0 / 2.7 - 3.8 cm LA Volume 36.2 cm??? 18 - 58 / 22 - 52 cm??? LA Volume Index 21.7 cm???/m??? 16 - 28 cm???/m??? M-MODE Aortic Root Diameter MM 3.0 cm DOPPLER AV Peak Velocity 263.2 cm/s AV Peak Gradient 27.7 mmHg AV Mean Velocity 167.4 cm/s AV Mean Gradient 14.3 mmHg AV Velocity Time Integral 51.7 cm AI Peak Velocity 301.8 cm/s AI Peak Gradient 36.4 mmHg AI Pressure Half Time 580.5 ms LVOT Peak Velocity 212.7 cm/s LVOT Peak Gradient 18.1 mmHg LVOT Velocity Time Integral 39.6 cm LVOT Stroke Volume 119.9 cm??? LVOT Stroke Volume Index 72.4 ml/m??? LVOT Cardiac Index 4812.1 cm???/min???m??? AV Area Cont Eq vti 2.3 cm??? AV Area Cont Eq pk 2.4 cm??? MV Area PHT 2.8 cm??? Mitral E Point Velocity 66.4 cm/s Mitral A Point Velocity 148.9 cm/s Mitral E to A Ratio 0.4 MV Deceleration Time 275.0 ms TR Peak Velocity 259.7 cm/s TR Peak Gradient 27.0 mmHg Right Ventricular Systolic Press 31.6 mmHg FINDINGS Left Ventricle Left ventricular ejection fraction is estimated at 65-70 %. Small left ventricular cavity. Mildly increased septal wall thickness. Mildly increased posterior wall thickness. Normal left ventricular wall motion. Right Ventricle Normal right ventricular size and function. Right ventricular systolic pressure within normal limits. Right Atrium Right atrium not well visualized. Left Atrium Normal left atrial size. No left atrial thrombus or mass present. Mitral Valve Mitral valve thickened. Moderate mitral annular calcification. Mild mitral regurgitation. Aortic Valve Trileaflet aortic valve. Aortic valve sclerosis. Mild aortic stenosis with a peak gradient of 28 mmHg and a mean gradient of 14 mmHg. Tricuspid Valve Structurally normal tricuspid valve. Mild tricuspid regurgitation. Pulmonic Valve Pulmonic valve not well visualized. No pulmonic regurgitation. Pericardium No pericardial or pleural effusion. Aorta Normal size aortic root and proximal ascending aorta. CONCLUSIONS Normal LV systolic function Aortic sclerosis with mild aortic stenosis Severe mitral annular calcification with mild mitral regurgitation Previewed by: Dr. Fran Mejia MD (Electronically Signed) Final Date: 19 June 2024 11:24
--- NOTE | 2024-06-19 15:00 | P.PN ---
Subjective Progress Note Date: 06/19/24 Principal diagnosis: Reason for follow-up is COVID-19 infection Patient is a 89-year-old female with a past medical history significant for type 2 diabetes mellitus hide for your dementia has been brought to the hospital for evaluation of weakness patient did have a low-grade fever 100 F tested positive for COVID-19 however chest x-ray did not show acute infiltrate. On today's evaluation that is 06/19/2024, Patient is afebrile this morning patient is breathing comfortably on room air satting around 98% patient is more awake and alert but elevated good historian as she has been asking of want to go home no vomiting or diarrhea has been reported. Patient white count is 9.6 procalcitonin was 0.11 blood culture currently pending Objective - Vital Signs Vital signs: Vital Signs Temp 98.1 F 06/19/24 09:49 Pulse 67 06/19/24 11:50 Resp 18 06/19/24 11:50 BP 126/54 06/19/24 11:50 Pulse Ox 97 06/19/24 11:50 FiO2 Intake & Output 06/18/24 06/19/24 06/19/24 18:59 06:59 18:59 Intake Total 37.107 100 192.232 Output Total 350 200 280 Balance -312.893 -100 -87.768 Intake: Intake, IV Titration 37.107 50 192.232 Amount Heparin Sod,Pork in 0.45% 37.107 192.232 NaCl 25,000 unit In 0.45 % NaCl 1 250ml.bag @ 12 UNITS/KG/HR 7.348 mls/hr IV .Q24H [facility] Rx#: [id number] cefTRIAXone 1 gm In 50 Sodium Chloride 0.9% 50 ml @ 100 mls/hr IVPB Q12HR [facility] Rx#:[id number] Oral 50 Output: Urine 350 200 280 Uretheral (Barger) 350 Other: Voiding Method Indwelling Catheter # Bowel Movements 1 - Exam GENERAL DESCRIPTION: An elderly female lying in bed in no distress RESPIRATORY SYSTEM: Unlabored breathing , decreased breath sounds at bases HEART: S1 S2 regular rate and rhythm , ABDOMEN: Soft , no tenderness EXTREMITIES: Lower extremity with some laceration which are currently dressed no drainage - Labs CBC & Chem 7: 06/19/24 06:37 06/18/24 06:37 Labs: Abnormal Lab Results - Last 24 Hours (Table) 06/18/24 06/18/24 06/18/24 Range/Units 09:59 16:01 21:52 RBC (3.80-5.40) m/uL Hgb (11.4-16.0) gm/dL Hct (34.0-46.0) % MCV (80.0-100.0) fL Plt Count (150-450) k/uL Neutrophils # (1.3-7.7) k/uL PT (10.0-12.5) sec INR (<1.2) APTT (22.0-30.0) sec POC Glucose (mg/dL) 180 H (70-110) mg/dL Hemoglobin A1c 6.1 H (<=6.0) % Vitamin B12 >3600.0 H (200.0-944.0) pg/mL 06/19/24 06/19/24 06/19/24 Range/Units 06:37 06:37 06:37 RBC 2.42 L (3.80-5.40) m/uL Hgb 8.1 L D (11.4-16.0) gm/dL Hct 24.4 L (34.0-46.0) % MCV 100.7 H (80.0-100.0) fL Plt Count 76 L (150-450) k/uL Neutrophils # 7.8 H (1.3-7.7) k/uL PT 14.4 H (10.0-12.5) sec INR 1.4 H (<1.2) APTT 84.1 H (22.0-30.0) sec POC Glucose (mg/dL) (70-110) mg/dL Hemoglobin A1c (<=6.0) % Vitamin B12 (200.0-944.0) pg/mL Microbiology - Last 24 Hours (Table) 06/16/24 22:03 Blood Culture - Preliminary Blood Assessment and Plan (1) Leukocytosis Current Visit: Yes Status: Acute Code(s): D72.829 - ELEVATED WHITE BLOOD CELL COUNT, UNSPECIFIED SNOMED Code(s): 545443741 (2) COVID-19 Current Visit: Yes Status: Acute Code(s): U07.1 - COVID-19 SNOMED Code(s): 918905303 Plan: 1patient presented to hospital with generalized weakness in this patient who also recently have a fall and tested positive for COVID-19 could be responsible for her symptoms however the patient is currently not hypoxic and no evidence of any acute infiltrate on chest x-ray treatment will be mostly supportive and currently do not qualify for remdesivir or steroids 2-patient also have mildly elevated white count on admission possibly reactive as no obvious focus she did have some resolution lower extremity with no cellulitis urine was negative and no evidence of any abdominal tenderness 3-patient white count has normalized, patient did have a normal procalcitonin of 0.11, blood culture are currently pending 4-patient to continue the current supportive treatment of zinc ascorbic acid if culture negative Rocephin can be discontinued Dictation was produced using [employer] dictation software. please excuse any grammatical, word or spelling errors. Time with Patient: Less than 30
--- NOTE | 2024-06-19 15:21 | P.PN ---
Subjective Progress Note Date: 06/19/24 (Altered mental status, confusion) Principal diagnosis: Diagnosis: 1. Altered mental status with the confusion, agitation at home. 2. Failure to thrive, was not eating or drinking at home, no BMs and no urination with the continuous sleeping like. 3. Abnormal troponin x 3 in the ER without complaint of chest pain 4. Underlying diabetes mellitus type 2 5. Rheumatoid arthritis chronic 6. 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 Frequent fall at home 8. Frequent laceration of the skin in the upper and the lower extremities with peeling of the skin with minimal trauma 9. Hypothyroidism 10. Hyperlipidemia 11. Hypertension with hypertensive heart disease 12. Coronary artery disease with three-vessel disease 13. Peripheral vascular disease status post aortobifem bypass by Dr. Perkins vascular surgeon 14. All the history of lacunar infarction no new event in the CT scan of the brain 15. Patient not communicating with the probability of dementia 16. She had underlying psychiatric disorder with major depression, and anxiety and undetermined other psychiatric disorder 17 probability of dementia however neurologist did not indicate in his note that disease. 18. Chronic kidney disease 19. Walking disability with frequent falls. Progress note Date of service 06/19/[address] Olivia. Patient seen evaluated on exam room 24 in the emergency room Patient not yet on the telemetry floor since admission As discussed with the patient she was awake alert, but she stated why I am here, where I am, where is my . Patient still disoriented and generally confused. She has no complaint of chest pain, or shortness of breath at the time of exam and they found that her troponin is elevated Patient seen by cardiology team and they thought troponin elevation could be associated with COVID however patient had tested for COVID 12 days ago or more and treated with antiviral treatment and dexamethasone and antibiotic Chest x-ray also was negative on admission and there is no hypoxemia, and we consulted Dr. Rodriguez infectious disease and he advised with symptomatic therapy only. I did adjust her medication and resumed however her blood pressure was fluctuating with the current below 100 systolic and she is only on beta-marcellus metoprolol 12.5 mg twice a day and a heart rate average of 60-70. Still patient in bed in the ER, no evidence of physical therapy or occupational therapy has been started. On exam: Patient conscious she is alert but she is confused, the CT scan of the head on admission was essentially negative and they recommended MRI, however the neurologist did see her and he is currently not recommended any further investigation as EEG or MRI of the brain. The head was normocephalic atraumatic and the pupil was equal reactive conjunctiva was pale with the underlying anemia oropharynx she had dentures upper and lower she able to swallow however she was not eating at home we ordered for her full liquid diet for trial. Patient was not drinking as well and with dehydration and we started her IV to rehydrate again She had a indwelling catheter with the bladder scan retention of the urine and t concepcion placed a catheter. Neck was supple no stiffness no lymphadenopathy trachea midline Chest was normal breath sound with the underlying kyphoscoliosis and no wheezes no rhonchi's Heart: She had clinically severe aortic stenosis and valvular heart disease however she had echocardiogram indicating that mild aortic stenosis. Abdomen: Currently soft positive bowel sound, she had some discomfort yesterday and we did x-ray of the abdomen with decubitus and was essentially negative Extremities: She had multiple skin tear in the lower extremities and upper extremities, I did consult the wound care to evaluate and treat today No edema and she had positive pulses bilateral with a history of peripheral vascular disease and aortobifem. Neurologically: She awake open her eyes confused not clearly understanding why she is in the hospital Psychiatry she has major depressive disorder in the past. Assessment: 1. Acute change in the mental status 2. Failure to thrive 3. Inability to stand or walk and need for Dr. Evaluation and rehabilitation with deconditioning 4. Multiple medical problem as elicited in multiple diagnosis 5. Consideration of dementia however that not clearly have diagnosed by the neurologist. 6. Abnormal troponin x 3 with non-STEMI TX highly considered despite that the patient did not have any complaint 7. Diabetes mellitus type 2 covered with insulin to scale 8. Hypothyroidism stable with the supplementation and resuming her medication 9. Hyperlipidemia 10. Hypertension with hypertensive heart disease 11. Underlying three-vessel coronary artery disease 12. Valvular heart disease with aortic stenosis referred to the echocardiogram 13. Pulmonary hypertension. 14. Rheumatoid arthritis and advanced degenerative osteoarthritis Plan: 1. Waiting for the physical therapy, Occupational Therapy and to be started to give us idea how much stamina 2. Waiting for the reevaluation of neurological status of the patient with the confusion disorientation and does not know where she is and if that will be improving 3. Continue the current medication and monitoring the patient 4. Future plan for skilled nursing i.e. medical [place] versus [facility] as her is a 89 years old and could not take care of her multiple medical problem. 5. Discussed with her end-of-life. Objective - Vital Signs Vital signs: Vital Signs Temp 98.1 F 06/19/24 09:49 Pulse 75 06/19/24 14:46 Resp 18 06/19/24 14:46 BP 98/57 06/19/24 14:46 Pulse Ox 98 06/19/24 14:46 FiO2 Intake & Output 06/18/24 06/19/24 06/19/24 18:59 06:59 18:59 Intake Total 37.107 100 192.232 Output Total 350 200 280 Balance -312.893 -100 -87.768 Intake: Intake, IV Titration 37.107 50 192.232 Amount Heparin Sod,Pork in 0.45% 37.107 192.232 NaCl 25,000 unit In 0.45 % NaCl 1 250ml.bag @ 12 UNITS/KG/HR 7.348 mls/hr IV .Q24H RIO Rx#: [id number] cefTRIAXone 1 gm In 50 Sodium Chloride 0.9% 50 ml @ 100 mls/hr IVPB Q12HR RIO Rx#:[id number] Oral 50 Output: Urine 350 200 280 Uretheral (Barger) 350 Other: Voiding Method Indwelling Catheter # Bowel Movements 1 - Labs CBC & Chem 7: 06/19/24 06:37 06/18/24 06:37 Labs: Abnormal Lab Results - Last 24 Hours (Table) 06/18/24 06/18/24 06/18/24 Range/Units 09:59 16:01 21:52 RBC (3.80-5.40) m/uL Hgb (11.4-16.0) gm/dL Hct (34.0-46.0) % MCV (80.0-100.0) fL Plt Count (150-450) k/uL Neutrophils # (1.3-7.7) k/uL PT (10.0-12.5) sec INR (<1.2) APTT (22.0-30.0) sec POC Glucose (mg/dL) 180 H (70-110) mg/dL Hemoglobin A1c 6.1 H (<=6.0) % Vitamin B12 >3600.0 H (200.0-944.0) pg/mL 06/19/24 06/19/24 06/19/24 Range/Units 06:37 06:37 06:37 RBC 2.42 L (3.80-5.40) m/uL Hgb 8.1 L D (11.4-16.0) gm/dL Hct 24.4 L (34.0-46.0) % MCV 100.7 H (80.0-100.0) fL Plt Count 76 L (150-450) k/uL Neutrophils # 7.8 H (1.3-7.7) k/uL PT 14.4 H (10.0-12.5) sec INR 1.4 H (<1.2) APTT 84.1 H (22.0-30.0) sec POC Glucose (mg/dL) (70-110) mg/dL Hemoglobin A1c (<=6.0) % Vitamin B12 (200.0-944.0) pg/mL Microbiology - Last 24 Hours (Table) 06/16/24 22:03 Blood Culture - Preliminary Blood
[2024-06-19] MEDS ORDERED: HYDROmorphone 0.5 MG/0.5 ML SYRINGE IVP PRN (21:35)
[2024-06-19] MEDS: ATORVASTATIN 40 MG TAB PO SCH (21:58)
[2024-06-19 22:45] LABS: Anisocytosis Slight; Basophils % (A) 0 %; Eosinophils % (A) 0 %; Hypochromasia Slight; Lymphocytes # (A) 1.6 k/uL (1.0-4.8); Lymphocytes % (A) 12 %; MCH 33.4 pg (25.0-35.0); MCHC 31.6 g/dL (31.0-37.0); MCV 105.4 fL (80.0-100.0); Macrocytosis Moderate; Mean Platelet Volume 10.1; Monocytes # (A) 0.6 k/uL (0-1.0); Monocytes % (A) 4 %; Neutrophils # (A) 10.8 k/uL (1.3-7.7); Neutrophils % (A) 82 %; RBC 1.86 m/uL (3.80-5.40); RDW 16.4 % (11.5-15.5); WBC 13.3 k/uL (3.8-10.6)
[2024-06-19 22:45] LABS: Glucose,Whole Blood 152 mg/dL (70-110)
--- NOTE | 2024-06-19 22:47 | US ---
EXAMINATION TYPE: US extremity nonvasculr ltd RT DATE OF EXAM: 06/19/2024 COMPARISON: NONE CLINICAL INDICATION: Female, 89 years old with history of r/o hematoma; Patient has large bubble appe aring area on upper right arm. Unknown how long this has been here. Patient poor historian. TECHNIQUE: Scanned patients area of concern in the upper right arm Exam done with nurses present attempting to hold patients arm still, slightly limited due to moveme nt of arm. FINDINGS: There is an approximately 8.1 x 3.2 x 6.4cm area of fluid with echoes within. There also a ppears to be a fluid- fluid level. Area of concern starting bleeding during exam, exam ended. IMPRESSION: Suboptimal study. Complex nonsimple large superficial fairly well-circumscribed heteroge neous fluid collection with fluid fluid level is seen on images obtained. Blood product or hematoma o f different ages is suspected. [facility], , 06/19/2024 10:44 PM
[2024-06-19 22:49] LABS: HCT 19.6 % (34.0-46.0); HGB 6.2 gm/dL (11.4-16.0); Platelet Count 83 k/uL (150-450)
[2024-06-19 23:06] LABS: Glucose,Whole Blood 153 mg/dL (70-110)
[2024-06-19] MEDS: NOREPINEPHRINE 4 MG in SODIUM CHLORIDE 0.9% 250 ML IV SCH (23:30)
[2024-06-19 23:45] LABS: Basophils % (A) 0 %; Eosinophils % (A) 0 %; Hypochromasia Slight; Lymphocytes # (A) 1.6 k/uL (1.0-4.8); Lymphocytes % (A) 12 %; MCH 33.4 pg (25.0-35.0); MCHC 32.8 g/dL (31.0-37.0); MCV 101.7 fL (80.0-100.0); Macrocytosis Slight; Mean Platelet Volume 9.1; Monocytes # (A) 0.6 k/uL (0-1.0); Monocytes % (A) 4 %; Neutrophils # (A) 10.7 k/uL (1.3-7.7); Neutrophils % (A) 82 %; RBC 1.82 m/uL (3.80-5.40); RDW 15.5 % (11.5-15.5)
[2024-06-19] MEDS: SODIUM CHLORIDE 0.9% IVPB ONE (23:53)
[2024-06-19] MEDS: PROTAMINE SULFATE IVPB ONE (23:53)
[2024-06-19 23:56] LABS: HGB 6.1 gm/dL (11.4-16.0)
[2024-06-19 23:57] LABS: HCT 18.5 % (34.0-46.0); Platelet Count 87 k/uL (150-450)
[2024-06-20] MEDS: SODIUM CHLORIDE 0.9% 1,000 ML IV ONE (00:07)
--- NOTE | 2024-06-20 01:51 | CT ---
EXAM: CT Angiography of the Right Upper Extremity With Intravenous Contrast CLINICAL HISTORY: CT Reason: arterial bleed right upper extremity? TECHNIQUE: Axial computed tomographic angiography images of the right upper extremity with intravenous contrast. CTDI is 117 mGy and DLP is 629.5 mGy-cm. This CT exam was performed using one or more of the following dose reduction techniques: automated exposure control, adjustment of the mA and/or kV according to patient size, and/or use of iterative reconstruction technique. MIP reconstructed images were created and reviewed. COMPARISON: No relevant prior studies available. FINDINGS: VASCULATURE: Aorta: The visualized portion of the aortic arch is mildly calcified but appears nondilated. No aneurysm or dissection. Right subclavian artery: 30% stenosis of the right subclavian artery. Right axillary artery: 40% stenosis of the right axillary artery. Right brachial artery: No acute findings. No occlusion or significant stenosis. Right radial artery: No acute findings. No occlusion or significant stenosis. Right ulnar artery: No acute findings. No occlusion or significant stenosis. Other arteries: 20% stenosis of the brachiocephalic artery. Partial visualization of a widely patent bypass graft anastomosed to the right common femoral artery with 90+% multifocal stenosis of the proximal right superficial femoral artery. The brachial, proximal radial, proximal ulnar, and proximal interosseous arteries are widely patent. The distal forearm vessels are not yet opacified with contrast, likely due to timing of the bolus. UPPER EXTREMITY: Bones/joints: Mild narrowing and osteophytosis of the right shoulder joint. No acute fracture. No dislocation. Soft tissues: There is a smooth oval 7 x 4 cm fluid collection along the skin of the anterior right upper extremity. Pleural space: Trace right pleural effusion. IMPRESSION: 1. The brachial, proximal radial, proximal ulnar, and proximal interosseous arteries are widely patent. The distal forearm vessels are not yet opacified with contrast, likely due to timing of the bolus. 2. No active extravasation is seen from the right upper extremity. 3. There is a smooth oval 7 x 4 cm fluid collection along the skin of the anterior right upper extremity. Possible bulla. There is slight hyperdensity along the deep margin of this fluid collection. Possible small amount of cutaneous hemorrhage versus calcification. 4. Partial visualization of a widely patent bypass graft anastomosed to the right common femoral artery with 90+% multifocal stenosis of the proximal right superficial femoral artery.
--- NOTE | 2024-06-20 03:58 | P.CNPUL ---
History of Present Illness Consult date: 06/20/24 Requesting physician: Issac Olivia Reason for consult: other (ICU management) Chief complaint: acute bleed History of present illness: Patient is an 89-year-old female with past medical history significant for dementia, hypertension, hyperlipidemia, diabetes mellitus, heart failure, breast cancer with previous lumpectomy, PAD, aortic aneurysm, among other things. She presented to emergency department back on 06/17/2024 with reports of worsening altered mental status, weakness, and frequent falls. Family reportedly unable to meet her requirements at home and requesting placement. Brain CT without contrast not showing any acute intracranial process. Unsure of patient's baseline mentation. Troponins were elevated on arrival, she was admitted with non-ST elevation NM. Started on IV heparin. She is been evaluated by cardiology. Also, COVID-positive. Chest x-ray did not show any focal infiltrates or evidence of pneumonia. We were consulted late last night as the patient developed a rather large right upper arm hematoma. reportedly pulsating. Rapid response was called late last night for low blood pressures. She also had a near 4 g drop in her hemoglobin. Hgb 10.3 gm/dl on 06/18, and is down to 6.2 g/dL on redraw. Her heparin infusion had been stopped. Also stopped her aspirin. Most recent CBC: WBC count 13.3, hemoglobin 6.2, hematocrit 19.6, platelets low at 83,000. Coagulation profile: PT 14.4, INR 1.4, and most recent APTT 60.8. Patient was profoundly hypotensive during rapid response. She has been given a total of 1 L fluid bolus. Also, started on norepinephrine during the [facility]. I am evaluating this patient in the intensive care unit. She is alert but confused. Generalized pallor. She remains hypotensive with blood pressures 50s/20s mmHg. She has a large right upper extremity hematoma. Manual compression is being applied. Right upper extremity ultrasound estimating a 8.1 x 3.2 x 6.4 cm area of fluid with echoes within. Area started bleeding during the examination and exam was stopped. No recent interventions or lines to this upper extremity. Review of Systems ROS unobtainable: due to mental status Past Medical History Past Medical History: Cancer, Heart Failure, Diabetes Mellitus, GERD/Reflux, Hyperlipidemia, Hypertension, Memory Impairment, Rheumatoid Arthritis (RA), Thyroid Disorder Additional Past Medical History / Comment(s): States age related memory impairment. 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 Hx right breast cancer had a lumpectomy and radiaiton tx,, aortic aneurysm(sx done). per [facility] "leaky heart valve", bowel obstruction with no sx, just colonoscopy and egd done. History of Any Multi-Drug Resistant Organisms: None Reported Past Surgical History: Appendectomy, Back Surgery, Breast Surgery, Heart Catheterization, Tonsillectomy, Tubal Ligation Additional Past Surgical History / Comment(s): Surgery for arortic aneurysm, surgery on toes of bilateral feet, ablation done on back X2, had uvula removed.lt carpal tunnel release, beverly cataracts, beverly carotid endarterectomy, partial rt mastectomy. colonoscopy/egd/esophgeal dilations, laminectomy/past pain clinic procedures, bunionectomy beverly feet. Past Anesthesia/Blood Transfusion Reactions: No Reported Reaction Past Psychological History: No Psychological Hx Reported, Anxiety, Bipolar, Depression Smoking Status: Former smoker Past Alcohol Use History: None Reported Past Drug Use History: None Reported - Past Family History Sister(s) Family Medical History: Cancer Additional Family Medical History / Comment(s): Aneurysm. States 3 of her sisters had cancer. Father Additional Family Medical History / Comment(s): Anerysym Mother Additional Family Medical History / Comment(s): Aneurysm Brother(s) Additional Family Medical History / Comment(s): Aneurysm Medications and Allergies Home Medications Medication Instructions Recorded Confirmed Type Etanercept [Enbrel] 50 mg SQ WEEKLY 05/16/18 06/18/24 History predniSONE 5 mg PO DAILY 08/28/20 06/18/24 History Potassium Chloride [Klor-Con 10 ER] 10 meq PO DAILY 04/14/21 06/18/24 History Ranolazine [Ranolazine ER] 500 mg PO Q12HR 12/25/21 06/18/24 History Metoprolol Tartrate [Lopressor] 12.5 mg PO BID 11/26/22 06/18/24 History Furosemide [Lasix] 20 mg PO DAILY 06/18/24 06/18/24 History Levothyroxine Sodium [Synthroid] 100 mcg PO DAILY 06/18/24 06/18/24 History Memantine HCl [Memantine HCl ER] 7 mg PO DAILY 06/18/24 06/18/24 History Methylphenidate HCl [Ritalin] 10 mg PO BID 06/18/24 06/18/24 History QUEtiapine [SEROquel] 12.5 mg PO BID 06/18/24 06/18/24 History Allergies Allergy/AdvReac Type Severity Reaction Status Date / Time adhesive tape Allergy Rash/Hives Verified 06/18/24 10:35 Penicillins Allergy Rash/Hives Verified 06/18/24 10:35 Physical Exam Vitals: Vital Signs Temp Pulse Pulse Resp BP BP BP 06/19/24 22:00 88/53 06/19/24 20:00 97.8 F 81 16 105/50 06/19/24 18:00 98.9 F 81 16 90/54 06/19/24 15:21 97.7 F 74 16 06/19/24 14:46 75 18 98/57 06/19/24 13:00 64 18 96/46 06/19/24 12:00 61 18 89/47 06/19/24 11:50 67 18 126/54 06/19/24 09:49 98.1 F 67 18 105/55 06/19/24 03:22 98.0 F 61 16 116/49 Pulse Ox 06/19/24 22:00 06/19/24 20:00 98 06/19/24 18:00 96 06/19/24 15:21 98 06/19/24 14:46 98 06/19/24 13:00 98 06/19/24 12:00 98 06/19/24 11:50 97 06/19/24 09:49 100 06/19/24 03:22 97 Intake and Output 06/19/24 06/19/24 06/20/24 14:59 22:59 06:59 Intake Total 192.232 72.059 Output Total 280 Balance -87.768 72.059 Intake: Intake, IV Titration 192.232 72.059 Amount Heparin Sod,Pork in 0.45% 192.232 72.059 NaCl 25,000 unit In 0.45 % NaCl 1 250ml.bag @ 12 UNITS/KG/HR 7.348 mls/hr IV .Q24H [facility] Rx#: [id number] Output: Urine 280 Other: Voiding Method Indwelling Catheter Weight 61.235 kg GENERAL EXAM: Alert, 89-year-old female, generalized pallor, large right upper extremity hematoma, manual compression being applied. HEAD: Normocephalic and atraumatic EYES: Normal reaction of pupils, equal size. NOSE: Clear with pink turbinates. THROAT: No erythema or exudates. NECK: No masses, no JVD. CHEST: No chest wall deformity. LUNGS: Equal air entry with no crackles, wheeze, rhonchi or dullness. On room air oxygen. No conversational dyspnea or accessory muscle use.. CVS: S1 and S2 normal with no audible murmur, regular rhythm. No extra heart sounds ABDOMEN: No hepatosplenomegaly, active bowel sounds, no guarding or rigidity. SPINE: No scoliosis or deformity SKIN: Diffuse generalized ecchymosis CENTRAL NERVOUS SYSTEM: No focal deficits, tone is normal in all 4 extremities. EXTREMITIES: There is no peripheral edema, clubbing, or cyanosis. Peripheral pulses are intact. Results - Laboratory Findings CBC and BMP: 06/20/24 10:40 06/20/24 10:40 PT/INR, D-dimer PT 14.4 sec (10.0-12.5) H 06/19/24 06:37 INR 1.4 (<1.2) H 06/19/24 06:37 Abnormal lab findings: Abnormal Labs 06/17/24 06/17/24 06/17/24 17:57 17:57 17:57 WBC 14.2 H RBC 3.43 L Hgb 11.3 L Hct MCV RDW Plt Count 77 L Neutrophils # 11.9 H PT INR APTT 21.3 L Sodium 134 L Chloride Carbon Dioxide BUN 47 H Creatinine 1.07 H Glucose 127 H POC Glucose (mg/dL) Hemoglobin A1c Calcium 8.3 L Troponin I C-Reactive Protein Total Protein 4.6 L Albumin 2.5 L Amylase Vitamin B12 Urine Ketones SARS-CoV-2 (PCR) Crossmatch 06/17/24 06/17/24 06/17/24 17:57 18:11 18:48 WBC RBC Hgb Hct MCV RDW Plt Count Neutrophils # PT INR APTT Sodium Chloride Carbon Dioxide BUN Creatinine Glucose POC Glucose (mg/dL) Hemoglobin A1c Calcium Troponin I 0.076 H* C-Reactive Protein Total Protein Albumin Amylase Vitamin B12 Urine Ketones 1+ H SARS-CoV-2 (PCR) Detected A Crossmatch 06/17/24 06/18/24 06/18/24 21:12 00:01 02:23 WBC RBC Hgb Hct MCV RDW Plt Count Neutrophils # PT 12.6 H INR 1.2 H APTT 21.9 L Sodium Chloride Carbon Dioxide BUN Creatinine Glucose POC Glucose (mg/dL) Hemoglobin A1c Calcium Troponin I 0.095 H* 0.108 H* C-Reactive Protein Total Protein Albumin Amylase Vitamin B12 Urine Ketones SARS-CoV-2 (PCR) Crossmatch 06/18/24 06/18/24 06/18/24 06:37 06:37 07:42 WBC 11.8 H RBC 3.17 L Hgb 10.3 L Hct 31.9 L MCV 100.5 H RDW Plt Count 63 L Neutrophils # 9.5 H PT INR APTT 42.2 H Sodium 136 L Chloride 109 H Carbon Dioxide 21 L BUN 42 H Creatinine Glucose 102 H POC Glucose (mg/dL) Hemoglobin A1c Calcium 8.0 L Troponin I C-Reactive Protein Total Protein Albumin Amylase Vitamin B12 Urine Ketones SARS-CoV-2 (PCR) Crossmatch 06/18/24 06/18/24 06/18/24 09:59 09:59 09:59 WBC RBC Hgb Hct MCV RDW Plt Count Neutrophils # PT INR APTT Sodium Chloride Carbon Dioxide BUN Creatinine Glucose POC Glucose (mg/dL) Hemoglobin A1c 6.1 H Calcium Troponin I C-Reactive Protein 3.8 H Total Protein Albumin Amylase 408 H* Vitamin B12 Urine Ketones SARS-CoV-2 (PCR) Crossmatch 06/18/24 06/18/24 06/19/24 16:01 21:52 06:37 WBC RBC 2.42 L Hgb 8.1 L D Hct 24.4 L MCV 100.7 H RDW Plt Count 76 L Neutrophils # 7.8 H PT INR APTT Sodium Chloride Carbon Dioxide BUN Creatinine Glucose POC Glucose (mg/dL) 180 H Hemoglobin A1c Calcium Troponin I C-Reactive Protein Total Protein Albumin Amylase Vitamin B12 >3600.0 H Urine Ketones SARS-CoV-2 (PCR) Crossmatch 06/19/24 06/19/24 06/19/24 06:37 06:37 16:14 WBC RBC Hgb Hct MCV RDW Plt Count Neutrophils # PT 14.4 H INR 1.4 H APTT 84.1 H 60.8 H Sodium Chloride Carbon Dioxide BUN Creatinine Glucose POC Glucose (mg/dL) Hemoglobin A1c Calcium Troponin I C-Reactive Protein Total Protein Albumin Amylase Vitamin B12 Urine Ketones SARS-CoV-2 (PCR) Crossmatch 06/19/24 06/19/24 06/19/24 21:50 22:39 23:03 WBC 13.3 H RBC 1.86 L Hgb 6.2 L* D Hct 19.6 L* MCV 105.4 H RDW 16.4 H Plt Count 83 L Neutrophils # 10.8 H PT INR APTT Sodium Chloride Carbon Dioxide BUN Creatinine Glucose POC Glucose (mg/dL) 152 H 153 H Hemoglobin A1c Calcium Troponin I C-Reactive Protein Total Protein Albumin Amylase Vitamin B12 Urine Ketones SARS-CoV-2 (PCR) Crossmatch 06/19/24 06/19/24 23:24 23:30 WBC 13.0 H RBC 1.82 L Hgb 6.1 L* Hct 18.5 L* MCV 101.7 H RDW Plt Count 87 L Neutrophils # 10.7 H PT INR APTT Sodium Chloride Carbon Dioxide BUN Creatinine Glucose POC Glucose (mg/dL) Hemoglobin A1c Calcium Troponin I C-Reactive Protein Total Protein Albumin Amylase Vitamin B12 Urine Ketones SARS-CoV-2 (PCR) Crossmatch See Detail - Diagnostic Findings Chest x-ray: image reviewed Assessment and Plan Assessment: Right upper extremity hematoma, patient was on IV heparin and aspirin, when she was noted to develop a large right upper extremity hematoma. Right upper extremity ultrasound estimating a 8.1 x 3.2 x 6.4 cm area of fluid with echoes within. Area started bleeding during the examination and exam was stopped. No recent interventions or lines to this upper extremity. Reportedly pulsating, concern for possible arterial bleed. Acute blood loss anemia, Hgb 10.3 gm/dl on 06/18, and is down to 6.2 g/dL on redraw. Two units of PRBCs are pending. Hypotension and shock, hypovolemic/hemorrhagic Acute COVID infection, chest x-ray does not show any focal traits or evidence of COVID-pneumonia. On room air oxygen Acute leukocytosis Elevated troponins, worked up for non-ST elevation NM, and was previously on heparin infusion. Echocardiogram estimating a left ventricular ejection fraction of 65 to 70%, aortic sclerosis and mild aortic stenosis, severe mitral annular calcification with mild mitral regurgitation. Frequent falls Failure to thrive History of advanced dementia, takes Namenda outpatient basis History of hyperlipidemia History of hypertension History of diabetes mellitus History of hypothyroidism History of CAD History PAD History of GI bleed, last EGD/colonoscopy October, showing erosive esophagitis, gastritis, segment of bleeding from stomach, hiatal hernia. Colonoscopy with findings of external and internal hemorrhoids, diverticulosis, and removal of 2 polyps. History of breast cancer with previous lumpectomy Plan: Patient has been transferred to the intensive care unit following a rapid response that was called late last night. Patient was noted to have a developing large upper extremity hematoma. She was on IV heparin, which have been stopped. Also, was receiving ASA. Patient has had approximately 4 g drop in her hemoglobin over the last 24 to 36 hours.. 2 units of PRBCs are already ordered. Monitor/trend H&H. Will give a dose of protamine sulfate. Consider platelet transfusion. Patient's blood pressure was noted to be profoundly hypotensive, she has been started on norepinephrine. Will give a 1 L fluid bolus while we wait for blood product. Possible concern for arterial bleed, obtain CT angio with runoff of the upper extremity. I did consult and speak to Dr. Gage from vascular surgery, they will follow the case, and offer surgical recommendations if necessary. I have spoken to my supervising physician Dr. Bocanegra, he agrees with assessment and plan. Patient has a DO NOT RESUSCITAT E/DO NOT INTUBATE status. We will continue to follow the patient while in the intensive care unit. I have personally seen and examined the patient, performed the documentation and the assessment and plan as written. Number of minutes spent on the visit:20 On 06/20/2024, patient is being seen in a joint evaluation along with the nurse practitioner. This is a critical care evaluation that was done more than 30 minutes. In summary, the patient is an 89-year-old female with multiple comorbidities including dementia, breast cancer with previous lumpectomy, PAD, congestion heart failure, diabetes mellitus and hypertension and hyperlipidemia. The patient initially presented to hospital because of generalized weakness and falls and the patient has areas of multiple skin bruising and skin laceration related to the falls. She also ruled in for an acute non-ST segment elevation myocardial infarction with minimal troponin leak. The patient was started on IV heparin. Overnight, the patient became acutely hypotensive and dropped her hemoglobin down to 6.2. At the same time, the patient developed a hematoma in the right upper extremity. Noted a CTA of the upper extremity was done on an emergent basis yesterday and there was no extravasation of contrast. No evidence of any acute bleeding in the right upper extremity. There was a 7 x 4 cm collection along the skin in the anterior right upper extremity and this is consistent with a subcutaneous bleed/hematoma. On examination, the patient has a large vesicular bullous collection with collection of dark blood within the pocket. Noted the brachial, proximal radial and proximal ulnar and proximal interosseous arteries were widely patent. Based on all this, the patient was transfused with a total of 2 units of packed RBC and the patient was also given platelets. IV heparin was discontinued. She required norepinephrine for hemodynamic support and currently she is off pressors. Subsequent hemoglobin came up from 6.1 up to 8.2. INR is at 1.4 with a PT of 14.7, PTT is 19.6. The patient has a BUN of 30 with a creatinine of 0.8. Serum bicarb is at 13 with a gap of 7. Her LFTs are nonelevated. Her ionized calcium level is 3.8. Phosphorus is at 2.6. She is awake and alert and communicating. She is on normal saline at rate of 100 cc an hour. Her echocardiogram from 06/19/2024 showed normal LV, severe mitral annular calcification with mild mitral regurgitation. Overall condition is stable. The patient is currently on room air oxygen. No evidence of an acute bleed. Wound care will be performed. The patient will be transferred back to the medical surgical floor. Noted the patient also tested positive for COVID-19 during this current admission. Her chest x-ray from 06/17/2024 showed no acute process and the patient has a hiatal hernia. Time with Patient: Greater than 30
[2024-06-20] MEDS: PANTOPRAZOLE 40 MG/10 ML VIAL IVP SCH (09:29)
[2024-06-20 11:15] LABS: Anisocytosis Slight; Basophils # (A) 0.1 k/uL (0-0.2); Basophils % (A) 1 %; Eosinophils # (A) 0.1 k/uL (0-0.7); Eosinophils % (A) 1 %; HCT 23.8 % (34.0-46.0); Lymphocytes # (A) 0.9 k/uL (1.0-4.8); Lymphocytes % (A) 8 %; MCH 32.3 pg (25.0-35.0); MCHC 34.6 g/dL (31.0-37.0); Mean Platelet Volume 9.9; Monocytes # (A) 0.7 k/uL (0-1.0); Monocytes % (A) 7 %; Neutrophils # (A) 9.1 k/uL (1.3-7.7); Neutrophils % (A) 83 %; Platelet Count 63 k/uL (150-450); RBC 2.55 m/uL (3.80-5.40); RDW 16.3 % (11.5-15.5)
[2024-06-20 11:19] LABS: HGB 8.2 gm/dL (11.4-16.0); MCV 93.6 fL (80.0-100.0)
[2024-06-20 11:21] LABS: INR 1.4 (<1.2); Prothrombin Time 14.7 sec (10.0-12.5)
[2024-06-20 11:40] LABS: Partial Thromboplastin Time 19.6 sec (22.0-30.0)
[2024-06-20 11:55] LABS: ALT 16 U/L (4-34); African American GFR (CKD) 71 (>60 ml/min/1.73 sqM); Albumin 1.7 g/dL (3.5-5.0); Anion Gap 7 mmol/L; Blood Urea Nitrogen 30 mg/dL (7-17); Carbon Dioxide 13 mmol/L (22-30); Chloride 112 mmol/L (98-107); Glucose 95 mg/dL (74-99); Non-African American GFR(CKD) 62 (>60 ml/min/1.73 sqM); Sodium 132 mmol/L (137-145); Total Bilirubin 1.7 mg/dL (0.2-1.3); Total Protein 3.5 g/dL (6.3-8.2)
[2024-06-20 12:09] LABS: AST 38 U/L (14-36); Alkaline Phosphatase <20 U/L (38-126); Magnesium 1.9 mg/dL (1.6-2.3); Potassium 4.3 mmol/L (3.5-5.1)
--- NOTE | 2024-06-20 12:50 | P.GSCN ---
History of Present Illness Consult date: 06/20/24 Reason for Consult: Right arm hematoma Requesting physician: Issac Olivia History of present illness: This is a pleasant 89-year-old female with past medical history significant for dementia, hypertension, hyperlipidemia, diabetes mellitus heart failure breast cancer, peripheral arterial disease, aortic aneurysm amongst other comorbidities who came in with altered mental status changes, and admitted for COVID infection NSTEMI. Apparently patient lives with her and he is unable to care for her and family was looking for placement for patient. Apparently when patient was at home she had fallen. She had come in with bruised right upper extremity. She was started on a heparin drip secondary to NSTEMI. Patient apparently started having swelling in her right upper extremity with concerns for hematoma. Heparin drip was discontinued. Patient states she does have some tenderness to the right upper extremity. She has no numbness or tingling in her hand. Vascular surgery was consulted for evaluation of hematoma of unknown source. Again patient has fallen at home onto that arm. She had a ultrasound of the right upper extremity that reported complex 9 simple large superficial fairly well-circumscribed scribed heterogeneous fluid collection, blood product or hematoma in differential. She also had a CTA of the right upper extremity with reported brachial proximal radial proximal ulnar and interosseous arteries widely patent. No active EXTR ovation seen in the right upper extremity. Smoo th oval 7 x 4 cm fluid collection along the skin of the anterior right upper extremity possible bulla. Slight hyperdensity along the deep margin of this fluid collection possible small amount of cutaneous hemorrhage versus calcification. Partial visualization of widely patent bypass graft anastomosed to the right common femoral artery with 90% multifocal stenosis of the proximal right SFA. Patient had a drop in her hemoglobin yesterday to 6.1 platelet count 63,000 she is status post 2 units of blood and 1 unit of platelets. Review of Systems A 14 point review systems was completed all pertinent positives and negatives as stated in the HPI. Past Medical History Past Medical History: Cancer, Heart Failure, Diabetes Mellitus, GERD/Reflux, Hyperlipidemia, Hypertension, Memory Impairment, Rheumatoid Arthritis (RA), Thyroid Disorder Additional Past Medical History / Comment(s): States age related memory impairment. 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 Hx right breast cancer had a lumpectomy and radiaiton tx,, aortic aneurysm(sx done). per [facility] "leaky heart valve", bowel obstruction with no sx, just colonoscopy and egd done. History of Any Multi-Drug Resistant Organisms: None Reported Past Surgical History: Appendectomy, Back Surgery, Breast Surgery, Heart Catheterization, Tonsillectomy, Tubal Ligation Additional Past Surgical History / Comment(s): Surgery for arortic aneurysm, surgery on toes of bilateral feet, ablation done on back X2, had uvula removed.lt carpal tunnel release, beverly cataracts, beverly carotid endarterectomy, partial rt mastectomy. colonoscopy/egd/esophgeal dilations, laminectomy/past pain clinic procedures, bunionectomy beverly feet. Past Anesthesia/Blood Transfusion Reactions: No Reported Reaction Past Psychological History: No Psychological Hx Reported, Anxiety, Bipolar, Depression Smoking Status: Former smoker Past Alcohol Use History: None Reported Past Drug Use History: None Reported - Past Family History Sister(s) Family Medical History: Cancer Additional Family Medical History / Comment(s): Aneurysm. States 3 of her sisters had cancer. Father Additional Family Medical History / Comment(s): Anerysym Mother Additional Family Medical History / Comment(s): Aneurysm Brother(s) Additional Family Medical History / Comment(s): Aneurysm Medications and Allergies Home Medications Medication Instructions Recorded Confirmed Type Etanercept [Enbrel] 50 mg SQ WEEKLY 05/16/18 06/18/24 History predniSONE 5 mg PO DAILY 08/28/20 06/18/24 History Potassium Chloride [Klor-Con 10 ER] 10 meq PO DAILY 04/14/21 06/18/24 History Ranolazine [Ranolazine ER] 500 mg PO Q12HR 12/25/21 06/18/24 History Metoprolol Tartrate [Lopressor] 12.5 mg PO BID 11/26/22 06/18/24 History Furosemide [Lasix] 20 mg PO DAILY 06/18/24 06/18/24 History Levothyroxine Sodium [Synthroid] 100 mcg PO DAILY 06/18/24 06/18/24 History Memantine HCl [Memantine HCl ER] 7 mg PO DAILY 06/18/24 06/18/24 History Methylphenidate HCl [Ritalin] 10 mg PO BID 06/18/24 06/18/24 History QUEtiapine [SEROquel] 12.5 mg PO BID 06/18/24 06/18/24 History Allergies Allergy/AdvReac Type Severity Reaction Status Date / Time adhesive tape Allergy Rash/Hives Verified 06/18/24 10:35 Penicillins Allergy Rash/Hives Verified 06/18/24 10:35 Surgical - Exam Vital Signs Temp Pulse Resp BP Pulse Ox 100 F H 74 17 133/60 100 06/17/24 17:22 06/17/24 17:22 06/17/24 17:22 06/17/24 17:22 06/17/24 17:22 General appearance: The patient is alert, oriented, appears in no acute distress. HET: Head is normocephalic and atraumatic. Pupils are equal and reactive. Neck: Supple. Heart: Regular. Lungs: Equal expansion, normal respiratory effort. Abdomen: Soft, nontender, nondistended. Extremities: Right upper extremity bruising from shoulder to elbow with a large blister appearing fluid-filled collection. No active bleeding. This is soft. Mild tenderness around the arm. Palpable radial pulse, full range of motion. Neurological: No focal deficits. Strength and sensation are grossly intact. Results - Labs 06/20/24 10:40 06/20/24 10:40 Abnormal Lab Results - Last 24 Hours (Table) 06/19/24 06/19/24 06/19/24 Range/Units 16:14 21:50 22:39 WBC 13.3 H (3.8-10.6) k/uL RBC 1.86 L (3.80-5.40) m/uL Hgb 6.2 L* D (11.4-16.0) gm/dL Hct 19.6 L* (34.0-46.0) % MCV 105.4 H (80.0-100.0) fL RDW 16.4 H (11.5-15.5) % Plt Count 83 L (150-450) k/uL Neutrophils # 10.8 H (1.3-7.7) k/uL APTT 60.8 H (22.0-30.0) sec POC Glucose (mg/dL) 152 H (70-110) mg/dL Crossmatch 06/19/24 06/19/24 06/19/24 Range/Units 23:03 23:24 23:30 WBC 13.0 H (3.8-10.6) k/uL RBC 1.82 L (3.80-5.40) m/uL Hgb 6.1 L* (11.4-16.0) gm/dL Hct 18.5 L* (34.0-46.0) % MCV 101.7 H (80.0-100.0) fL RDW (11.5-15.5) % Plt Count 87 L (150-450) k/uL Neutrophils # 10.7 H (1.3-7.7) k/uL APTT (22.0-30.0) sec POC Glucose (mg/dL) 153 H (70-110) mg/dL Crossmatch See Detail Microbiology - Last 24 Hours (Table) 06/16/24 22:03 Blood Culture - Preliminary Blood Assessment and Plan Assessment: 1. Right upper extremity ecchymosis with bulla likely secondary from patient's fall and anticoagulation 2. NSTEMI, was started on heparin drip, which has been since discontinued 3. Mechanical fall 4. Thrombocytopenia 5. Anemia 6. COVID-19 positive Plan: Right upper extremity imaging reviewed. CT 80 with no findings of extra ov ation. This is likely secondary to patient's fall and heparin with a bulla on right upper arm. There is no indication for any vascular surgical intervention. May apply colten wrap to arm. Rest of medical management per primary medical team. Thank you for this consultation, vascular surgery will sign off at this time. The impression and plan of care has been dictated as directed. Dr. Barger I performed a history and examination of this patient, discussed the same with the dictator. I agree with the dictator's note ,documented as a scribe. Any additional findings or plans will be noted.
--- NOTE | 2024-06-20 14:01 | P.PN ---
Subjective Progress Note Date: 06/20/24 This is dictation on progress note Date of service 06/20/[address] Olivia Location ICU 257 bed 1. Patient seen today in ICU after event last night with the bleeding right arm Extensively with the drop of the hemoglobin to 6.1 and 6.2 and they thought at that time she had arterial bleed consultation with vascular surgeon and the and physician office administrative assistant saw her for the vascular surgeon and patient underwent ultrasound of the right arm with the presence of hematoma also will be did CTs scan angiogram on the right arm and found that she has no arterial bleeding and some stenosis of the subclavian 30% and also showed that she had the femoral right sided femoral aortofemoral bypass with open with the perfusion not event and there is no arterial bleeding. Patient was transferred to the ICU and seen by critical care Dr. Palma and transfused 2 units of packed RBCs and 1 unit of platelet. And today her hemoglobin is up to 8 and her blood pressure has been fluctuating and from hypotension to hypertension seen by the cardiology Dr. Jernigan and her currently heart rate is fluctuating between bradycardia and her currently the beta-marcellus that she has been taken metoprolol 12.5 mg twice a day has been held and her heart rate now 61 and the oxygen saturation is also fluctuating and because of that reason we will keep her 1 more and ICU as well as she not eating not drinking her IV fluid has been adjusted as well and she had underlying chronic kidney disease stage III but she is perfusing and she had urine and which is borderline but at the same time the the IV has been adjusted to avoid congestive heart failure in the ICU. She has problem with. Her awareness you have to stim ulate her significantly to wake up and open her eyes and say may be on understandable verbal but she can be awake. Up sleeping not eating not drinking yet enough. Her blood pressure as well is On the physical examination patient's able to be stimulated and to open her eyes very minimal and in the state of sleep. The head was normocephalic atraumatic pupil was equal reactive and oropharynx she used dentures upper and lower neck was supple Chest normal breath sound and no intubation. She is a no CODE STATUS. The text heart is regular sinus rhythm with PACs. And that she has underlying history of valvular heart disease and pulmonary hypertension. Abdomen positive bowel sound with the vague discomfort on palpation Extremities multiple ecchymosis with the blood loss and anemia. The assessment. And plan She had severe hypocalcemia however the calculated was reasonable with low albumin and low protein and we will be obtaining ionized calcium and phosphorus to equate for the current drop. With the underlying on his stability we will be waiting for 1 day only and then patient could be transferred to the floor for the stability of her vital sign. In regard of intake she has minimal intake and will see dietitian has been helping as well. Objective - Vital Signs Vital signs: Vital Signs Temp 97.5 F L 06/20/24 08:00 Pulse 56 L 06/20/24 11:00 Resp 18 06/20/24 11:00 BP 152/54 06/20/24 11:00 Pulse Ox 100 06/20/24 11:00 FiO2 Intake & Output 06/19/24 06/20/24 06/20/24 18:59 06:59 18:59 Intake Total 116.054 2643.135 1410 Output Total 280 385 230 Balance -42.961 3048.135 1180 Weight 61.235 kg 63.8 kg 63.8 kg Intake: IV 1500 750 Sodium Chloride 0.9% 1, 1500 700 000 ml @ 100 mls/hr IV . Q10H RIO Rx#:[id number] cefTRIAXone 1 gm In 50 Sodium Chloride 0.9% 50 ml @ 100 mls/hr IVPB Q12HR RIO Rx#:[id number] Intake, IV Titration 237.039 73.135 Amount Heparin Sod,Pork in 0.45% 237.039 27.252 NaCl 25,000 unit In 0.45 % NaCl 1 250ml.bag @ 12 UNITS/KG/HR 7.348 mls/hr IV .Q24H RIO Rx#: [id number] Norepinephrine 4 mg In 45.883 Sodium Chloride 0.9% 250 ml @ 0.03 MCG/KG/MIN 6. 999 mls/hr IV .Q24H RIO Rx#:[id number] Blood Product 1860 660 Platelet Pheresis Pas 350 Psoralen Unit [id number] Rc As-1 Unit 310 [id number] Rc As-1 Unit 310 [id number] Output: Urine 280 385 230 Other: Voiding Method Indwelling Catheter Indwelling Catheter - Labs CBC & Chem 7: 06/20/24 10:40 06/20/24 10:40 Labs: Abnormal Lab Results - Last 24 Hours (Table) 06/19/24 06/19/24 06/19/24 Range/Units 16:14 21:50 22:39 WBC 13.3 H (3.8-10.6) k/uL RBC 1.86 L (3.80-5.40) m/uL Hgb 6.2 L* D (11.4-16.0) gm/dL Hct 19.6 L* (34.0-46.0) % MCV 105.4 H (80.0-100.0) fL RDW 16.4 H (11.5-15.5) % Plt Count 83 L (150-450) k/uL Neutrophils # 10.8 H (1.3-7.7) k/uL Lymphocytes # (1.0-4.8) k/uL PT (10.0-12.5) sec INR (<1.2) APTT 60.8 H (22.0-30.0) sec Sodium (137-145) mmol/L Chloride (98-107) mmol/L Carbon Dioxide (22-30) mmol/L BUN (7-17) mg/dL POC Glucose (mg/dL) 152 H (70-110) mg/dL Calcium (8.4-10.2) mg/dL Total Bilirubin (0.2-1.3) mg/dL AST (14-36) U/L Alkaline Phosphatase (38-126) U/L Total Protein (6.3-8.2) g/dL Albumin (3.5-5.0) g/dL Crossmatch 06/19/24 06/19/24 06/19/24 Range/Units 23:03 23:24 23:30 WBC 13.0 H (3.8-10.6) k/uL RBC 1.82 L (3.80-5.40) m/uL Hgb 6.1 L* (11.4-16.0) gm/dL Hct 18.5 L* (34.0-46.0) % MCV 101.7 H (80.0-100.0) fL RDW (11.5-15.5) % Plt Count 87 L (150-450) k/uL Neutrophils # 10.7 H (1.3-7.7) k/uL Lymphocytes # (1.0-4.8) k/uL PT (10.0-12.5) sec INR (<1.2) APTT (22.0-30.0) sec Sodium (137-145) mmol/L Chloride (98-107) mmol/L Carbon Dioxide (22-30) mmol/L BUN (7-17) mg/dL POC Glucose (mg/dL) 153 H (70-110) mg/dL Calcium (8.4-10.2) mg/dL Total Bilirubin (0.2-1.3) mg/dL AST (14-36) U/L Alkaline Phosphatase (38-126) U/L Total Protein (6.3-8.2) g/dL Albumin (3.5-5.0) g/dL Crossmatch See Detail 06/20/24 06/20/24 06/20/24 Range/Units 10:40 10:40 10:40 WBC 11.0 H (3.8-10.6) k/uL RBC 2.55 L (3.80-5.40) m/uL Hgb 8.2 L D (11.4-16.0) gm/dL Hct 23.8 L (34.0-46.0) % MCV (80.0-100.0) fL RDW 16.3 H (11.5-15.5) % Plt Count 63 L (150-450) k/uL Neutrophils # 9.1 H (1.3-7.7) k/uL Lymphocytes # 0.9 L (1.0-4.8) k/uL PT 14.7 H (10.0-12.5) sec INR 1.4 H (<1.2) APTT 19.6 L (22.0-30.0) sec Sodium 132 L (137-145) mmol/L Chloride 112 H (98-107) mmol/L Carbon Dioxide 13 L (22-30) mmol/L BUN 30 H (7-17) mg/dL POC Glucose (mg/dL) (70-110) mg/dL Calcium 6.0 L* (8.4-10.2) mg/dL Total Bilirubin 1.7 H (0.2-1.3) mg/dL AST 38 H (14-36) U/L Alkaline Phosphatase <20 L (38-126) U/L Total Protein 3.5 L (6.3-8.2) g/dL Albumin 1.7 L (3.5-5.0) g/dL Crossmatch Microbiology - Last 24 Hours (Table) 06/16/24 22:03 Blood Culture - Preliminary Blood
--- NOTE | 2024-06-20 14:32 | P.PN ---
Subjective Progress Note Date: 06/20/24 The patient is an 89 female patient with known history of coronary artery disease as well as multiple comorbid conditions including hypertension and dyslipidemia and peripheral arterial disease as well as multiple comorbid conditions including underlying dementia who was admitted to the hospital with a change in mental status and she was diagnosed with COVID-19 infection and we consulted to see patient because of abnormal cardiac enzymes with a finding consistent with acute coronary syndrome. We advised medical treatment. Subsequently the patient was started on heparin IV and she underwent an echo which revealed normal LV systolic function with mild aortic stenosis. After that the patient developed right arm hematoma and the heparin was stopped and she dropped her hemoglobin down and she received blood transfusion. June 20, 2024 The patient was seen and evaluated this morning. She is hemodynamically stable at this point. She has been maintaining normal sinus mechanism. The hemoglobin is stable after the blood transfusion. The hematoma is better. The heparin is currently off. The echo is as described above showed normal LV systolic function with mild aortic stenosis only. The physical examination is remarkable for stable vital signs with regular rhythm and the patient has been maintaining normal sinus mechanism. Assessment COVID-19 infection Change in mental status Abnormal cardiac enzymes Thrombocytopenia Multiple comorbid conditions Plan Continue monitoring the hemoglobin Avoid any anticoagulation at this point Follow-up with the patient Objective - Vital Signs Vital signs: Vital Signs Temp 97.5 F L 06/20/24 08:00 Pulse 56 L 06/20/24 11:00 Resp 18 06/20/24 11:00 BP 152/54 06/20/24 11:00 Pulse Ox 100 06/20/24 11:00 FiO2 Intake & Output 06/19/24 06/20/24 06/20/24 18:59 06:59 18:59 Intake Total 968.531 4458.135 1410 Output Total 280 385 230 Balance -42.961 3048.135 1180 Weight 61.235 kg 63.8 kg 63.8 kg Intake: IV 1500 750 Sodium Chloride 0.9% 1, 1500 700 000 ml @ 100 mls/hr IV . Q10H RIO Rx#:[id number] cefTRIAXone 1 gm In 50 Sodium Chloride 0.9% 50 ml @ 100 mls/hr IVPB Q12HR RIO Rx#:[id number] Intake, IV Titration 237.039 73.135 Amount Heparin Sod,Pork in 0.45% 237.039 27.252 NaCl 25,000 unit In 0.45 % NaCl 1 250ml.bag @ 12 UNITS/KG/HR 7.348 mls/hr IV .Q24H RIO Rx#: [id number] Norepinephrine 4 mg In 45.883 Sodium Chloride 0.9% 250 ml @ 0.03 MCG/KG/MIN 6. 999 mls/hr IV .Q24H RIO Rx#:[id number] Blood Product 1860 660 Platelet Pheresis Pas 350 Psoralen Unit [id number] Rc As-1 Unit 310 [id number] Rc As-1 Unit 310 [id number] Output: Urine 280 385 230 Other: Voiding Method Indwelling Catheter Indwelling Catheter - Labs CBC & Chem 7: 06/20/24 10:40 06/20/24 10:40 Labs: Abnormal Lab Results - Last 24 Hours (Table) 06/19/24 06/19/24 06/19/24 Range/Units 16:14 21:50 22:39 WBC 13.3 H (3.8-10.6) k/uL RBC 1.86 L (3.80-5.40) m/uL Hgb 6.2 L* D (11.4-16.0) gm/dL Hct 19.6 L* (34.0-46.0) % MCV 105.4 H (80.0-100.0) fL RDW 16.4 H (11.5-15.5) % Plt Count 83 L (150-450) k/uL Neutrophils # 10.8 H (1.3-7.7) k/uL Lymphocytes # (1.0-4.8) k/uL PT (10.0-12.5) sec INR (<1.2) APTT 60.8 H (22.0-30.0) sec Sodium (137-145) mmol/L Chloride (98-107) mmol/L Carbon Dioxide (22-30) mmol/L BUN (7-17) mg/dL POC Glucose (mg/dL) 152 H (70-110) mg/dL Calcium (8.4-10.2) mg/dL Total Bilirubin (0.2-1.3) mg/dL AST (14-36) U/L Alkaline Phosphatase (38-126) U/L Total Protein (6.3-8.2) g/dL Albumin (3.5-5.0) g/dL Crossmatch 06/19/24 06/19/24 06/19/24 Range/Units 23:03 23:24 23:30 WBC 13.0 H (3.8-10.6) k/uL RBC 1.82 L (3.80-5.40) m/uL Hgb 6.1 L* (11.4-16.0) gm/dL Hct 18.5 L* (34.0-46.0) % MCV 101.7 H (80.0-100.0) fL RDW (11.5-15.5) % Plt Count 87 L (150-450) k/uL Neutrophils # 10.7 H (1.3-7.7) k/uL Lymphocytes # (1.0-4.8) k/uL PT (10.0-12.5) sec INR (<1.2) APTT (22.0-30.0) sec Sodium (137-145) mmol/L Chloride (98-107) mmol/L Carbon Dioxide (22-30) mmol/L BUN (7-17) mg/dL POC Glucose (mg/dL) 153 H (70-110) mg/dL Calcium (8.4-10.2) mg/dL Total Bilirubin (0.2-1.3) mg/dL AST (14-36) U/L Alkaline Phosphatase (38-126) U/L Total Protein (6.3-8.2) g/dL Albumin (3.5-5.0) g/dL Crossmatch See Detail 06/20/24 06/20/24 06/20/24 Range/Units 10:40 10:40 10:40 WBC 11.0 H (3.8-10.6) k/uL RBC 2.55 L (3.80-5.40) m/uL Hgb 8.2 L D (11.4-16.0) gm/dL Hct 23.8 L (34.0-46.0) % MCV (80.0-100.0) fL RDW 16.3 H (11.5-15.5) % Plt Count 63 L (150-450) k/uL Neutrophils # 9.1 H (1.3-7.7) k/uL Lymphocytes # 0.9 L (1.0-4.8) k/uL PT 14.7 H (10.0-12.5) sec INR 1.4 H (<1.2) APTT 19.6 L (22.0-30.0) sec Sodium 132 L (137-145) mmol/L Chloride 112 H (98-107) mmol/L Carbon Dioxide 13 L (22-30) mmol/L BUN 30 H (7-17) mg/dL POC Glucose (mg/dL) (70-110) mg/dL Calcium 6.0 L* (8.4-10.2) mg/dL Total Bilirubin 1.7 H (0.2-1.3) mg/dL AST 38 H (14-36) U/L Alkaline Phosphatase <20 L (38-126) U/L Total Protein 3.5 L (6.3-8.2) g/dL Albumin 1.7 L (3.5-5.0) g/dL Crossmatch Microbiology - Last 24 Hours (Table) 06/16/24 22:03 Blood Culture - Preliminary Blood
[2024-06-20 14:50] LABS: Ionized Calcium 3.8 mg/dL (4.5-5.3)
[2024-06-20 15:03] LABS: Phosphorus 2.6 mg/dL (2.5-4.5)
[2024-06-20 16:02] LABS: % Iron Saturation 17.14 (12.00-45.00)
[2024-06-20 16:57] LABS: Glucose,Whole Blood 130 mg/dL (70-110)
[2024-06-20 20:57] LABS: Glucose,Whole Blood 135 mg/dL (70-110)
[2024-06-21 06:25] LABS: Glucose,Whole Blood 85 mg/dL (70-110)
--- NOTE | 2024-06-21 08:21 | P.PN ---
Subjective Progress Note Date: 06/20/24 Principal diagnosis: Reason for follow-up is COVID-19 infection Patient is a 89-year-old female with a past medical history significant for type 2 diabetes mellitus hide for your dementia has been brought to the hospital for evaluation of weakness patient did have a low-grade fever 100 F tested positive for COVID-19 however chest x-ray did not show acute infiltrate. On today's evaluation that is 06/20/2024,the patient continues to be afebrile patient was transferred to the ICU nurse and he developed a significant hematoma to the right upper extremity and was also hypotensive subsequent blood pressure has normalized patient is currently sleepy lethargic elevated good historian she is breathing comfortably room air no vomiting or diarrhea has been reported. Patient white count is 11,000, creatinine 0.84 blood cultures are currently pending Objective - Vital Signs Vital signs: Vital Signs Temp 97.5 F L 06/20/24 08:00 Pulse 56 L 06/20/24 11:00 Resp 18 06/20/24 11:00 BP 152/54 06/20/24 11:00 Pulse Ox 100 06/20/24 11:00 FiO2 Intake & Output 06/19/24 06/20/24 06/20/24 18:59 06:59 18:59 Intake Total 358.502 4275.135 1410 Output Total 280 385 230 Balance -42.961 3048.135 1180 Weight 61.235 kg 63.8 kg 63.8 kg Intake: IV 1500 750 Sodium Chloride 0.9% 1, 1500 700 000 ml @ 100 mls/hr IV . Q10H RIO Rx#:[id number] cefTRIAXone 1 gm In 50 Sodium Chloride 0.9% 50 ml @ 100 mls/hr IVPB Q12HR RIO Rx#:[id number] Intake, IV Titration 237.039 73.135 Amount Heparin Sod,Pork in 0.45% 237.039 27.252 NaCl 25,000 unit In 0.45 % NaCl 1 250ml.bag @ 12 UNITS/KG/HR 7.348 mls/hr IV .Q24H RIO Rx#: [id number] Norepinephrine 4 mg In 45.883 Sodium Chloride 0.9% 250 ml @ 0.03 MCG/KG/MIN 6. 999 mls/hr IV .Q24H RIO Rx#:[id number] Blood Product 1860 660 Platelet Pheresis Pas 350 Psoralen Unit [id number] Rc As-1 Unit 310 [id number] Rc As-1 Unit 310 [id number] Output: Urine 280 385 230 Other: Voiding Method Indwelling Catheter Indwelling Catheter - Exam GENERAL DESCRIPTION: An elderly female lying in bed in no distress RESPIRATORY SYSTEM: Unlabored breathing , decreased breath sounds at bases HEART: S1 S2 regular rate and rhythm , ABDOMEN: Soft , no tenderness EXTREMITIES: Lower extremity with some laceration which are currently dressed no drainage - Labs CBC & Chem 7: 06/20/24 10:40 06/20/24 10:40 Labs: Abnormal Lab Results - Last 24 Hours (Table) 06/19/24 06/19/24 06/19/24 Range/Units 16:14 21:50 22:39 WBC 13.3 H (3.8-10.6) k/uL RBC 1.86 L (3.80-5.40) m/uL Hgb 6.2 L* D (11.4-16.0) gm/dL Hct 19.6 L* (34.0-46.0) % MCV 105.4 H (80.0-100.0) fL RDW 16.4 H (11.5-15.5) % Plt Count 83 L (150-450) k/uL Neutrophils # 10.8 H (1.3-7.7) k/uL Lymphocytes # (1.0-4.8) k/uL PT (10.0-12.5) sec INR (<1.2) APTT 60.8 H (22.0-30.0) sec Sodium (137-145) mmol/L Chloride (98-107) mmol/L Carbon Dioxide (22-30) mmol/L BUN (7-17) mg/dL POC Glucose (mg/dL) 152 H (70-110) mg/dL Calcium (8.4-10.2) mg/dL Total Bilirubin (0.2-1.3) mg/dL AST (14-36) U/L Alkaline Phosphatase (38-126) U/L Total Protein (6.3-8.2) g/dL Albumin (3.5-5.0) g/dL Crossmatch 06/19/24 06/19/24 06/19/24 Range/Units 23:03 23:24 23:30 WBC 13.0 H (3.8-10.6) k/uL RBC 1.82 L (3.80-5.40) m/uL Hgb 6.1 L* (11.4-16.0) gm/dL Hct 18.5 L* (34.0-46.0) % MCV 101.7 H (80.0-100.0) fL RDW (11.5-15.5) % Plt Count 87 L (150-450) k/uL Neutrophils # 10.7 H (1.3-7.7) k/uL Lymphocytes # (1.0-4.8) k/uL PT (10.0-12.5) sec INR (<1.2) APTT (22.0-30.0) sec Sodium (137-145) mmol/L Chloride (98-107) mmol/L Carbon Dioxide (22-30) mmol/L BUN (7-17) mg/dL POC Glucose (mg/dL) 153 H (70-110) mg/dL Calcium (8.4-10.2) mg/dL Total Bilirubin (0.2-1.3) mg/dL AST (14-36) U/L Alkaline Phosphatase (38-126) U/L Total Protein (6.3-8.2) g/dL Albumin (3.5-5.0) g/dL Crossmatch See Detail 06/20/24 06/20/24 06/20/24 Range/Units 10:40 10:40 10:40 WBC 11.0 H (3.8-10.6) k/uL RBC 2.55 L (3.80-5.40) m/uL Hgb 8.2 L D (11.4-16.0) gm/dL Hct 23.8 L (34.0-46.0) % MCV (80.0-100.0) fL RDW 16.3 H (11.5-15.5) % Plt Count 63 L (150-450) k/uL Neutrophils # 9.1 H (1.3-7.7) k/uL Lymphocytes # 0.9 L (1.0-4.8) k/uL PT 14.7 H (10.0-12.5) sec INR 1.4 H (<1.2) APTT 19.6 L (22.0-30.0) sec Sodium 132 L (137-145) mmol/L Chloride 112 H (98-107) mmol/L Carbon Dioxide 13 L (22-30) mmol/L BUN 30 H (7-17) mg/dL POC Glucose (mg/dL) (70-110) mg/dL Calcium 6.0 L* (8.4-10.2) mg/dL Total Bilirubin 1.7 H (0.2-1.3) mg/dL AST 38 H (14-36) U/L Alkaline Phosphatase <20 L (38-126) U/L Total Protein 3.5 L (6.3-8.2) g/dL Albumin 1.7 L (3.5-5.0) g/dL Crossmatch Microbiology - Last 24 Hours (Table) 06/16/24 22:03 Blood Culture - Preliminary Blood Assessment and Plan (1) Leukocytosis Current Visit: Yes Status: Acute Code(s): D72.829 - ELEVATED WHITE BLOOD CELL COUNT, UNSPECIFIED SNOMED Code(s): 889069988 (2) COVID-19 Current Visit: Yes Status: Acute Code(s): U07.1 - COVID-19 SNOMED Code(s): 549593879 Plan: 1patient presented to hospital with generalized weakness in this patient who also recently have a fall and tested positive for COVID-19 could be responsible for her symptoms however the patient is currently not hypoxic and no evidence of any acute infiltrate on chest x-ray treatment will be mostly supportive and currently do not qualify for remdesivir or steroids 2-patient also have mildly elevated white count on admission possibly reactive as no obvious focus she did have some resolution lower extremity with no cellulitis urine was negative and no evidence of any abdominal tenderness 3-patient white count slightly up today possibly reactive to the right upper extremity hematoma/bleeding , patient did have a normal procalcitonin of 0.11, blood culture are so far negative 4-patient will be continued with supportive treatment of zinc ascorbic acid if culture negative Rocephin can be safely discontinued Dictation was produced using [employer] dictation software. please excuse any grammatical, word or spelling errors. Time with Patient: Less than 30
[2024-06-21] MEDS: ASPIRIN 81 MG PO SCH (09:04)
--- NOTE | 2024-06-21 10:00 | P.PN ---
Subjective Progress Note Date: 06/21/24 Principal diagnosis: Altered mental status in the setting of recent fall with history of dementia. Ms. Collazo is an 89-year-old female right-handed with medical histor y of dementia, hiatal hernia, CHF, diabetes, breast cancer, GERD, hyperlipidemia, hypertension, rheumatoid arthritis, thyroid problem, peripheral vascular disease as well as aortic aneurysm. Patient was seen and is admitted to [facility] on June 18 after she fell 2 days prior at home. She is cared for by her at home but he did not feel he could continue to take care of her following her fall as she did not appear to get out of bed. She was also weak and confused and not taking oral feeding. She did have some urinary as well as bowel incontinence as well but no documented seizure activity. The assists with her activities of daily living and says he is unable to do this at this time. When questioned the patient is oriented to month but not to place. She will follow simple and complex commands and neurologic exam is nonfocal. CT scan revealed atrophy as well as some confluent subcortical white matter disease and a lacunar in the left internal capsule. So far workup for etiology of altered mental status has been negative save for a white blood cell count slightly elevated at 14.2. She is receiving Rocephin at this time. She also gets up prednisone 5 mg daily for likely rheumatoid arthritis. Neurology has been consulted for further management recommendations. When seen initially June 19, the patient was prescribed melatonin 5 mg nightly to assist with sleep regulation. The patient suffered some bleeding into an apparent hematoma in the right upper arm on June 20 and was transferred to the ICU. Upper extremity CTA on June 20 revealed a 7.4 cm fluid collection in the anterior arm without evidence of connection to the arteries. She was transferred back to the floor but was not seen by neurology on June. When seen in follow-up June 21, the patient is arousable and oriented to hospital as well as to the month. She will only respond in very short sentences and appears mildly irritable with repeated questions. Her neurologic exam is nonfocal at this time, though the patient does have some difficulty following complex commands. Assessment and Plan Assessment: Ms. Collazo is an 89-year-old female with history of dementia. She lives at home and is cared for by her who is having difficulty managing her at home status post fall. She was unable to get out of bed and has some generalized weakness and confusion. She has extensive bruising and states she has had multiple falls in the past. She does not appear grossly encephalopathic or neurologically focal at this time. Plan: 1. Patient will be admitted to the hospital and physical therapy has been consulted to assist with patient's ambulation. 2. I will prescribe melatonin 5 mg nightly to assist with sleep regulation while the patient is in house. I she does not appear to have any hallucinations, so I will hold on quetiapine unless needed for agitation 3. I would recommend continuing Rocephin at this time for white blood cell count of 14.2. It appears she has not had a urinalysis and I would recommend this as per the primary team's discretion. 4. I do not see a need for an electroencephalogram or MRI at this time but may reconsider based on patient's clinical course. 5. Neurology will continue to follow the patient in house and make further recommendations as needed. Thank you for this consult. Objective - Vital Signs Vital signs: Vital Signs Temp 98.1 F 06/21/24 08:56 Pulse 64 06/21/24 08:56 Resp 14 06/21/24 08:56 BP 129/68 06/21/24 08:56 Pulse Ox 100 06/21/24 08:56 FiO2 Intake & Output 06/20/24 06/21/24 06/21/24 18:59 06:59 18:59 Intake Total 1410 Output Total 230 600 Balance 1180 -600 Weight 63.8 kg Intake: IV 750 Sodium Chloride 0.9% 1, 700 000 ml @ 100 mls/hr IV . Q10H [facility] Rx#:[id number] cefTRIAXone 1 gm In 50 Sodium Chloride 0.9% 50 ml @ 100 mls/hr IVPB Q12HR [facility] Rx#:[id number] Blood Product 660 Platelet Pheresis Pas 350 Psoralen Unit [id number] Output: Urine 230 600 Other: Voiding Method Indwelling Catheter Indwelling Catheter - Labs CBC & Chem 7: 06/20/24 10:40 06/20/24 10:40 Labs: Abnormal Lab Results - Last 24 Hours (Table) 06/18/24 06/20/24 06/20/24 Range/Units 00:01 10:40 10:40 WBC 11.0 H (3.8-10.6) k/uL RBC 2.55 L (3.80-5.40) m/uL Hgb 8.2 L D (11.4-16.0) gm/dL Hct 23.8 L (34.0-46.0) % RDW 16.3 H (11.5-15.5) % Plt Count 63 L (150-450) k/uL Neutrophils # 9.1 H (1.3-7.7) k/uL Lymphocytes # 0.9 L (1.0-4.8) k/uL PT 14.7 H (10.0-12.5) sec INR 1.4 H (<1.2) APTT 19.6 L (22.0-30.0) sec Sodium (137-145) mmol/L Chloride (98-107) mmol/L Carbon Dioxide (22-30) mmol/L BUN (7-17) mg/dL POC Glucose (mg/dL) (70-110) mg/dL Calcium (8.4-10.2) mg/dL Ionized Calcium [place] (4.5-5.3) mg/dL Iron 36 L (50-170) UG/DL TIBC 210 L (228-460) UG/DL Transferrin 150.0 L (204.0-354.0) mg/dL Total Bilirubin (0.2-1.3) mg/dL AST (14-36) U/L Alkaline Phosphatase (38-126) U/L Total Protein (6.3-8.2) g/dL Albumin (3.5-5.0) g/dL 06/20/24 06/20/24 06/20/24 Range/Units 10:40 14:07 16:54 WBC (3.8-10.6) k/uL RBC (3.80-5.40) m/uL Hgb (11.4-16.0) gm/dL Hct (34.0-46.0) % RDW (11.5-15.5) % Plt Count (150-450) k/uL Neutrophils # (1.3-7.7) k/uL Lymphocytes # (1.0-4.8) k/uL PT (10.0-12.5) sec INR (<1.2) APTT (22.0-30.0) sec Sodium 132 L (137-145) mmol/L Chloride 112 H (98-107) mmol/L Carbon Dioxide 13 L (22-30) mmol/L BUN 30 H (7-17) mg/dL POC Glucose (mg/dL) 130 H (70-110) mg/dL Calcium 6.0 L* (8.4-10.2) mg/dL Ionized Calcium [place] 3.8 L (4.5-5.3) mg/dL Iron (50-170) UG/DL TIBC (228-460) UG/DL Transferrin (204.0-354.0) mg/dL Total Bilirubin 1.7 H (0.2-1.3) mg/dL AST 38 H (14-36) U/L Alkaline Phosphatase <20 L (38-126) U/L Total Protein 3.5 L (6.3-8.2) g/dL Albumin 1.7 L (3.5-5.0) g/dL 12/18/24 Range/Units 20:54 WBC (3.8-10.6) k/uL RBC (3.80-5.40) m/uL Hgb (11.4-16.0) gm/dL Hct (34.0-46.0) % RDW (11.5-15.5) % Plt Count (150-450) k/uL Neutrophils # (1.3-7.7) k/uL Lymphocytes # (1.0-4.8) k/uL PT (10.0-12.5) sec INR (<1.2) APTT (22.0-30.0) sec Sodium (137-145) mmol/L Chloride (98-107) mmol/L Carbon Dioxide (22-30) mmol/L BUN (7-17) mg/dL POC Glucose (mg/dL) 135 H (70-110) mg/dL Calcium (8.4-10.2) mg/dL Ionized Calcium [place] (4.5-5.3) mg/dL Iron (50-170) UG/DL TIBC (228-460) UG/DL Transferrin (204.0-354.0) mg/dL Total Bilirubin (0.2-1.3) mg/dL AST (14-36) U/L Alkaline Phosphatase (38-126) U/L Total Protein (6.3-8.2) g/dL Albumin (3.5-5.0) g/dL Microbiology - Last 24 Hours (Table) 06/16/24 22:03 Blood Culture - Preliminary Blood
[2024-06-21 11:35] LABS: Glucose,Whole Blood 95 mg/dL (70-110)
--- NOTE | 2024-06-21 11:36 | P.PN ---
Subjective Progress Note Date: 06/21/24 Patient is seen and examined today as a follow-up she was transferred out of the ICU. Right arm is wrapped with Kerlix. Bolus seems to have been opened or drained on its own. Hemoglobin stable at 7.9. Objective - Vital Signs Vital signs: Vital Signs Temp 97.8 F 06/21/24 11:16 Pulse 55 L 06/21/24 11:16 Resp 16 06/21/24 11:16 BP 134/60 06/21/24 11:16 Pulse Ox 99 06/21/24 11:16 FiO2 Intake & Output 06/20/24 06/21/24 06/21/24 18:59 06:59 18:59 Intake Total 1410 Output Total 230 600 Balance 1180 -600 Weight 63.8 kg Intake: IV 750 Sodium Chloride 0.9% 1, 700 000 ml @ 100 mls/hr IV . Q10H [facility] Rx#:[id number] cefTRIAXone 1 gm In 50 Sodium Chloride 0.9% 50 ml @ 100 mls/hr IVPB Q12HR [facility] Rx#:[id number] Blood Product 660 Platelet Pheresis Pas 350 Psoralen Unit [id number] Output: Urine 230 600 Other: Voiding Method Indwelling Catheter Indwelling Catheter - Exam General appearance: The patient is alert, oriented, appears in no acute distress. HET: Head is normocephalic and atraumatic. Pupils are equal and reactive. Neck: Supple. Extremities: Right upper extremity bruising from shoulder to elbow with a large blister appearing fluid-filled collection. No active bleeding. This is soft. Mild tenderness around the arm. Palpable radial pulse, full range of motion. Left upper extremity with ecchymosis and Kerlix wrap. Neurological: No focal deficits. - Labs CBC & Chem 7: 06/20/24 10:40 06/20/24 10:40 Labs: Abnormal Lab Results - Last 24 Hours (Table) 06/18/24 06/20/24 06/20/24 Range/Units 00:01 10:40 10:40 PT 14.7 H (10.0-12.5) sec INR 1.4 H (<1.2) APTT 19.6 L (22.0-30.0) sec Sodium 132 L (137-145) mmol/L Chloride 112 H (98-107) mmol/L Carbon Dioxide 13 L (22-30) mmol/L BUN 30 H (7-17) mg/dL POC Glucose (mg/dL) (70-110) mg/dL Calcium 6.0 L* (8.4-10.2) mg/dL Ionized Calcium [place] (4.5-5.3) mg/dL Iron 36 L (50-170) UG/DL TIBC 210 L (228-460) UG/DL Transferrin 150.0 L (204.0-354.0) mg/dL Total Bilirubin 1.7 H (0.2-1.3) mg/dL AST 38 H (14-36) U/L Alkaline Phosphatase <20 L (38-126) U/L Total Protein 3.5 L (6.3-8.2) g/dL Albumin 1.7 L (3.5-5.0) g/dL 06/20/24 06/20/24 06/20/24 Range/Units 14:07 16:54 20:54 PT (10.0-12.5) sec INR (<1.2) APTT (22.0-30.0) sec Sodium (137-145) mmol/L Chloride (98-107) mmol/L Carbon Dioxide (22-30) mmol/L BUN (7-17) mg/dL POC Glucose (mg/dL) 130 H 135 H (70-110) mg/dL Calcium (8.4-10.2) mg/dL Ionized Calcium [place] 3.8 L (4.5-5.3) mg/dL Iron (50-170) UG/DL TIBC (228-460) UG/DL Transferrin (204.0-354.0) mg/dL Total Bilirubin (0.2-1.3) mg/dL AST (14-36) U/L Alkaline Phosphatase (38-126) U/L Total Protein (6.3-8.2) g/dL Albumin (3.5-5.0) g/dL Microbiology - Last 24 Hours (Table) 06/16/24 22:03 Blood Culture - Preliminary Blood Assessment and Plan Assessment: 1. Right upper extremity ecchymosis with bulla likely secondary from patient's fall and anticoagulation 2. NSTEMI, was started on heparin drip, which has been since discontinued 3. Mechanical fall 4. Thrombocytopenia 5. Anemia 6. COVID-19 positive Plan: Right upper extremity imaging reviewed. CT 80 with no findings of extra ovation. This is likely secondary to patient's fall and heparin with a bulla on right upper arm. There is no indication for any vascular surgical intervention. May apply colten wrap to arm. Rest of medical management per primary medical team. Thank you for this consultation, vascular surgery will sign off at this time. The impression and plan of care has been dictated as directed. Dr. Barger I performed a history and examination of this patient, discussed the same with the dictator. I agree with the dictator's note ,documented as a scribe. Any additional findings or plans will be noted.
--- NOTE | 2024-06-21 12:09 | P.PN ---
Subjective Progress Note Date: 06/21/24 The patient is an 89 female patient with known history of coronary artery disease as well as multiple comorbid conditions including hypertension and dyslipidemia and peripheral arterial disease as well as multiple comorbid conditions including underlying dementia who was admitted to the hospital with a change in mental status and she was diagnosed with COVID-19 infection and we consulted to see patient because of abnormal cardiac enzymes with a finding consistent with acute coronary syndrome. We advised medical treatment. Subsequently the patient was started on heparin IV and she underwent an echo which revealed normal LV systolic function with mild aortic stenosis. After that the patient developed right arm hematoma and the heparin was stopped and she dropped her hemoglobin down and she received blood transfusion. June 20, 2024 The patient was seen and evaluated this morning. She is hemodynamically stable at this point. She has been maintaining normal sinus mechanism. The hemoglobin is stable after the blood transfusion. The hematoma is better. The heparin is currently off. The echo is as described above showed normal LV systolic function with mild aortic stenosis only. The physical examination is remarkable for stable vital signs with regular rhythm and the patient has been maintaining normal sinus mechanism. June 21, 2024 Patient is seen and examined. Patient has been transferred out of ICU and is seen today on the cardiac stepdown unit. Patient denies having any chest pain at this time no significant shortness of breath at rest. Blood pressure 134/60, heart rate 55, pulse ox 99% on room air. No repeat blood work today. The physical examination is remarkable for stable vital signs with regular rhythm and the patient has been maintaining normal sinus mechanism. Assessment COVID-19 infection Change in mental status Abnormal cardiac enzymes most likely secondary to COVID-19 Thrombocytopenia Multiple comorbid conditions Right upper extremity ecchymosis and Bulah secondary to fall and anticoagulation Plan Continue monitoring the hemoglobin Avoid any anticoagulation at this point Follow-up with the patient Nurse practitioner note has been reviewed, I agree with documented findings and plan of care. Patient was seen and examined. Objective - Vital Signs Vital signs: Vital Signs Temp 98.1 F 06/21/24 08:56 Pulse 64 06/21/24 08:56 Resp 14 06/21/24 08:56 BP 129/68 06/21/24 08:56 Pulse Ox 100 06/21/24 08:56 FiO2 Intake & Output 06/20/24 06/21/24 06/21/24 18:59 06:59 18:59 Intake Total 1410 Output Total 230 600 Balance 1180 -600 Weight 63.8 kg Intake: IV 750 Sodium Chloride 0.9% 1, 700 000 ml @ 100 mls/hr IV . Q10H [facility] Rx#:[id number] cefTRIAXone 1 gm In 50 Sodium Chloride 0.9% 50 ml @ 100 mls/hr IVPB Q12HR [facility] Rx#:[id number] Blood Product 660 Platelet Pheresis Pas 350 Psoralen Unit [id number] Output: Urine 230 600 Other: Voiding Method Indwelling Catheter Indwelling Catheter - Labs CBC & Chem 7: 06/20/24 10:40 06/20/24 10:40 Labs: Abnormal Lab Results - Last 24 Hours (Table) 06/18/24 06/20/24 06/20/24 Range/Units 00:01 10:40 10:40 WBC 11.0 H (3.8-10.6) k/uL RBC 2.55 L (3.80-5.40) m/uL Hgb 8.2 L D (11.4-16.0) gm/dL Hct 23.8 L (34.0-46.0) % RDW 16.3 H (11.5-15.5) % Plt Count 63 L (150-450) k/uL Neutrophils # 9.1 H (1.3-7.7) k/uL Lymphocytes # 0.9 L (1.0-4.8) k/uL PT 14.7 H (10.0-12.5) sec INR 1.4 H (<1.2) APTT 19.6 L (22.0-30.0) sec Sodium (137-145) mmol/L Chloride (98-107) mmol/L Carbon Dioxide (22-30) mmol/L BUN (7-17) mg/dL POC Glucose (mg/dL) (70-110) mg/dL Calcium (8.4-10.2) mg/dL Ionized Calcium [place] (4.5-5.3) mg/dL Iron 36 L (50-170) UG/DL TIBC 210 L (228-460) UG/DL Transferrin 150.0 L (204.0-354.0) mg/dL Total Bilirubin (0.2-1.3) mg/dL AST (14-36) U/L Alkaline Phosphatase (38-126) U/L Total Protein (6.3-8.2) g/dL Albumin (3.5-5.0) g/dL 06/20/24 06/20/24 06/20/24 Range/Units 10:40 14:07 16:54 WBC (3.8-10.6) k/uL RBC (3.80-5.40) m/uL Hgb (11.4-16.0) gm/dL Hct (34.0-46.0) % RDW (11.5-15.5) % Plt Count (150-450) k/uL Neutrophils # (1.3-7.7) k/uL Lymphocytes # (1.0-4.8) k/uL PT (10.0-12.5) sec INR (<1.2) APTT (22.0-30.0) sec Sodium 132 L (137-145) mmol/L Chloride 112 H (98-107) mmol/L Carbon Dioxide 13 L (22-30) mmol/L BUN 30 H (7-17) mg/dL POC Glucose (mg/dL) 130 H (70-110) mg/dL Calcium 6.0 L* (8.4-10.2) mg/dL Ionized Calcium [place] 3.8 L (4.5-5.3) mg/dL Iron (50-170) UG/DL TIBC (228-460) UG/DL Transferrin (204.0-354.0) mg/dL Total Bilirubin 1.7 H (0.2-1.3) mg/dL AST 38 H (14-36) U/L Alkaline Phosphatase <20 L (38-126) U/L Total Protein 3.5 L (6.3-8.2) g/dL Albumin 1.7 L (3.5-5.0) g/dL 06/20/24 Range/Units 20:54 WBC (3.8-10.6) k/uL RBC (3.80-5.40) m/uL Hgb (11.4-16.0) gm/dL Hct (34.0-46.0) % RDW (11.5-15.5) % Plt Count (150-450) k/uL Neutrophils # (1.3-7.7) k/uL Lymphocytes # (1.0-4.8) k/uL PT (10.0-12.5) sec INR (<1.2) APTT (22.0-30.0) sec Sodium (137-145) mmol/L Chloride (98-107) mmol/L Carbon Dioxide (22-30) mmol/L BUN (7-17) mg/dL POC Glucose (mg/dL) 135 H (70-110) mg/dL Calcium (8.4-10.2) mg/dL Ionized Calcium [place] (4.5-5.3) mg/dL Iron (50-170) UG/DL TIBC (228-460) UG/DL Transferrin (204.0-354.0) mg/dL Total Bilirubin (0.2-1.3) mg/dL AST (14-36) U/L Alkaline Phosphatase (38-126) U/L Total Protein (6.3-8.2) g/dL Albumin (3.5-5.0) g/dL Microbiology - Last 24 Hours (Table) 06/16/24 22:03 Blood Culture - Preliminary Blood
[2024-06-21 12:23] LABS: Anisocytosis Slight; Basophils % (A) 0 %; Eosinophils # (A) 0.1 k/uL (0-0.7); Eosinophils % (A) 1 %; HCT 26.2 % (34.0-46.0); HGB 8.9 gm/dL (11.4-16.0); Hypochromasia Slight; Lymphocytes # (A) 0.8 k/uL (1.0-4.8); Lymphocytes % (A) 8 %; MCHC 33.9 g/dL (31.0-37.0); MCV 97.5 fL (80.0-100.0); Macrocytosis Slight; Mean Platelet Volume 10.6; Monocytes # (A) 0.4 k/uL (0-1.0); Monocytes % (A) 4 %; Neutrophils # (A) 8.4 k/uL (1.3-7.7); Neutrophils % (A) 86 %; RBC 2.68 m/uL (3.80-5.40); RDW 16.7 % (11.5-15.5); WBC 9.7 k/uL (3.8-10.6)
[2024-06-21 12:33] LABS: Platelet Count 59 k/uL (150-450)
--- NOTE | 2024-06-21 13:24 | P.PN ---
Subjective Progress Note Date: 06/21/24 Principal diagnosis: Reason for follow-up is COVID-19 infection Patient is a 89-year-old female with a past medical history significant for type 2 diabetes mellitus hide for your dementia has been brought to the hospital for evaluation of weakness patient did have a low-grade fever 100 F tested positive for COVID-19 however chest x-ray did not show acute infiltrate. On today's evaluation that is 06/21/2024,the patient remains to be afebrile, patient is on room air not requiring supplemental oxygen, patient has been moved out of the ICU denies any chest pain occasional cough no vomiting diarrhea has been reported. Patient white count is 9.7 hemoglobin is 8.9 blood culture has been negative so far Objective - Vital Signs Vital signs: Vital Signs Temp 97.8 F 06/21/24 11:16 Pulse 55 L 06/21/24 11:16 Resp 16 06/21/24 11:16 BP 134/60 06/21/24 11:16 Pulse Ox 99 06/21/24 11:16 FiO2 Intake & Output 06/20/24 06/21/24 06/21/24 18:59 06:59 18:59 Intake Total 1410 Output Total 230 600 Balance 1180 -600 Weight 63.8 kg Intake: IV 750 Sodium Chloride 0.9% 1, 700 000 ml @ 100 mls/hr IV . Q10H [facility] Rx#:[id number] cefTRIAXone 1 gm In 50 Sodium Chloride 0.9% 50 ml @ 100 mls/hr IVPB Q12HR [facility] Rx#:[id number] Blood Product 660 Platelet Pheresis Pas 350 Psoralen Unit [id number] Output: Urine 230 600 Other: Voiding Method Indwelling Catheter Indwelling Catheter Indwelling Catheter - Exam GENERAL DESCRIPTION: An elderly female lying in bed in no distress RESPIRATORY SYSTEM: Unlabored breathing , decreased breath sounds at bases HEART: S1 S2 regular rate and rhythm , ABDOMEN: Soft , no tenderness EXTREMITIES: Lower extremity with some laceration which are currently dressed no drainage - Labs CBC & Chem 7: 06/21/24 11:36 06/20/24 10:40 Labs: Abnormal Lab Results - Last 24 Hours (Table) 06/18/24 06/20/24 06/20/24 Range/Units 00:01 14:07 16:54 RBC (3.80-5.40) m/uL Hgb (11.4-16.0) gm/dL Hct (34.0-46.0) % RDW (11.5-15.5) % Plt Count (150-450) k/uL Neutrophils # (1.3-7.7) k/uL Lymphocytes # (1.0-4.8) k/uL POC Glucose (mg/dL) 130 H (70-110) mg/dL Ionized Calcium [place] 3.8 L (4.5-5.3) mg/dL Iron 36 L (50-170) UG/DL TIBC 210 L (228-460) UG/DL Transferrin 150.0 L (204.0-354.0) mg/dL 06/20/24 06/21/24 Range/Units 20:54 11:36 RBC 2.68 L (3.80-5.40) m/uL Hgb 8.9 L (11.4-16.0) gm/dL Hct 26.2 L (34.0-46.0) % RDW 16.7 H (11.5-15.5) % Plt Count 59 L (150-450) k/uL Neutrophils # 8.4 H (1.3-7.7) k/uL Lymphocytes # 0.8 L (1.0-4.8) k/uL POC Glucose (mg/dL) 135 H (70-110) mg/dL Ionized Calcium [place] (4.5-5.3) mg/dL Iron (50-170) UG/DL TIBC (228-460) UG/DL Transferrin (204.0-354.0) mg/dL Microbiology - Last 24 Hours (Table) 06/16/24 22:03 Blood Culture - Preliminary Blood Assessment and Plan (1) Leukocytosis Current Visit: Yes Status: Acute Code(s): D72.829 - ELEVATED WHITE BLOOD CELL COUNT, UNSPECIFIED SNOMED Code(s): 040997360 (2) COVID-19 Current Visit: Yes Status: Acute Code(s): U07.1 - COVID-19 SNOMED Code(s): 783064579 Plan: 1patient presented to hospital with generalized weakness in this patient who also recently have a fall and tested positive for COVID-19 could be responsible for her symptoms however the patient is currently not hypoxic and no evidence of any acute infiltrate on chest x-ray treatment will be mostly supportive and currently do not qualify for remdesivir or steroids 2-patient also have mildly elevated white count on admission possibly reactive as no obvious focus she did have some resolution lower extremity with no cellulitis urine was negative and no evidence of any abdominal tenderness 3-patient white count has normalized, patient did have a normal procalcitonin of 0.11, blood culture has been negative so far 4-patient will be continued with supportive treatment of zinc ascorbic acid and monitor clinical course closely Dictation was produced using [employer] dictation software. please excuse any grammatical, word or spelling errors. Time with Patient: Less than 30
[2024-06-21 16:29] LABS: Glucose,Whole Blood 156 mg/dL (70-110)
--- NOTE | 2024-06-21 18:13 | P.PN ---
Subjective Progress Note Date: 06/21/24 Progress note Date of service 06/21/[address] Olivia. Patient seen evaluated [id number] in her room 363. Also I did discuss it with her and extended time on the phone with the request of final decision for the patient Patient awake able to say my name, she knows that she is in the hospital [facility]. She is not eating or drinking with the low albumin and low protein. Her calcium was low yesterday and she was in critical care ICU they did the equation and they felt no need for adding any calcium because of the low albumin and protein However we did ionized calcium was also low and we will repeat lab for ionized calcium tomorrow as well as total calcium which come with the BMP. I did discuss with Mr. Collazo as well end-of-life care and the longterm placement versus more aggressive therapy with peg tube placement and feeding through the stoma. I encourage Mr. Collazo to discuss it with his 2 sons and himself and to let me know with the decision and he will check with his sons and let me tomorrow. And the plan is to review laboratory in the regard of her general chemistry and transfer to longterm of family choice after their decision and evaluation of the lab, if the bed is available. I did review the neurology note as well as infectious disease note and other notes from nursing practitioner, who they did not mention who is the attending that they working with to understand is it cardiology is it infectious diseases is his gastroenterology which makes the care of the patient is with none mention what speciality the dealing with and I hope this trend was not mentioned the attending by the nurse practitioner and to be ended. Patient not eager to communicate she is confused still, admitted with altered mental status and then neurology does not appear to be agreeable with encephalopathy but also he is not clearly documenting that she had dementia or not with the final diagnosis from the specialist neurology unclear to me Patient has multiple medical problem as we understand and I felt that she has underlying dementia beside that she had other psychiatric disorder and she was on #50 date by her psychiatrist as noted in my admission history and physical. On the physical exam patient was laying on recliners and she able to open her eyes also very brief with no complete sentence as her previous meeting with the patient before this incident as outpatient Temperature 97.3 F oral, heart rate 57 with bradycardia probably secondary to metoprolol which she used small dose 12.5 mg twice a day. Respiratory rate 14/min and her blood pressure fluctuating was earlier 134/60 with a mean 84 and subsequently dropped to 108/47 with a mean 67. Her oxygen saturation earlier was 99% and later 94% with also fluctuation you Head was normocephalic atraumatic pupil was equal reactive, oropharynx she not having her dentures and we discussed with the nursing staff if she lost her dentures as I did see it in the ER with the patient or her took the dentures away or the lasted somewhere and needs to be investigating to see if the patient able to eat. Hearing mildly affected but still she can hear and answer questions, nose no rhinitis Neck was supple no JVD no thyromegaly no lymphadenopathy and trachea midline. Chest she has normal breath sound and no history of infection and no pneumonia and the chest x-ray on admission was normal The heart: She has underlying history of coronary artery disease atherosclerotic heart disease and peripheral vascular disease with history of aorto [place] bypass on the right side by Dr. Prekins the vascular surgeon. Abdomen soft nontender positive bowel sound, She had a Barger catheter in the bladder draining Extremities: She had the hematoma from the right upper arm with the Kerlix no current bleeding and the hemoglobin was improving but she has severe hypoproteinemia hypoalbuminemia but no edema on the legs at this time She had positive pulses. Psychiatry: History of major depressive disorder Neurologically: She is seen by the neurologist with no obvious diagnosis other than not communicating, with could be different associated with the lacunar infarct of the left internal capsule in the past however the current CT was normal with brain atrophy and there is no clear diagnosis of dementia. Patient had acute troponin elevation on admission with the underlying acute coronary artery syndrome patient was placed on and cardiology saw her and continued the heparin as recommended Patient also had positive COVID 10 days prior to the admission with her at the same time and she was treated with antiviral treatment and dexamethasone and antibiotic and zinc however her when he retested was converted to negative and she continued to be positive at the same time when she come to the ER they tested her and was positive, Patient seen by infectious disease Dr. Rodriguez and her oxygenation was normal and no fever or chills except 2 on admission she had mild leukocytosis and started empirically on Rocephin with questionable about UTI And infectious disease indicating that there is no need for remdesivir the IV and the treated only with symptomatic treatment. Assessment: 1. Admitted with altered mental status 2. Confusion with questionable underlying dementia 3. Failure to thrive with frequent fall and inability to stand up or walk with associated incontinence of the urine and stool 4. Coronary artery disease three-vessel disease, hypertension and hypertensive heart disease, pulmonary hypertension and she was treated by Dr. Ruiz pulmonary and critical care with Cialis 10 mg once a day 5. Hypothyroidism 6. Rheumatoid arthritis 7. 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 Walking disability 9. Hyperlipidemia 10. Diabetes mellitus type 2. 11. Peripheral vascular disease and is status post over 2 from bypass. 12. Anxiety and major depressive disorder and she was treated by psychiatrist in [facility]. 13. Progressive deterioration with immunocompromise. And she was also on Enbrel for rheumatoid arthritis Plan and recommendation: 1. Will obtain laboratory tomorrow for evaluation of her white count and hemoglobin and reticulocyte count with a CBC with differential 2. Lab to check on her liver function test and the protein and albumin, also obtaining prealbumin level to assess her nutritional status 3. Discussion with the family for the future planning for care 4. Depend on the decision of the family if the need PEG tube for feeding or comfort care. 5. Discussed with the in detail and lengthy of time. Time for the care management more than 35 minutes. Objective - Vital Signs Vital signs: Vital Signs Temp 97.7 F 06/21/24 15:38 Pulse 57 L 06/21/24 15:38 Resp 14 06/21/24 15:38 BP 108/47 06/21/24 15:38 Pulse Ox 94 L 06/21/24 15:38 FiO2 Intake & Output 06/20/24 06/21/24 06/21/24 18:59 06:59 18:59 Intake Total 1410 Output Total 230 600 250 Balance 1180 -600 -250 Weight 63.8 kg Intake: IV 750 Sodium Chloride 0.9% 1, 700 000 ml @ 100 mls/hr IV . Q10H RIO Rx#:[id number] cefTRIAXone 1 gm In 50 Sodium Chloride 0.9% 50 ml @ 100 mls/hr IVPB Q12HR RIO Rx#:[id number] Blood Product 660 Platelet Pheresis Pas 350 Psoralen Unit [id number] Output: Urine 230 600 250 Other: Voiding Method Indwelling Catheter Indwelling Catheter Indwelling Catheter - Labs CBC & Chem 7: 06/21/24 11:36 06/20/24 10:40 Labs: Abnormal Lab Results - Last 24 Hours (Table) 06/20/24 06/21/24 06/21/24 Range/Units 20:54 11:36 16:27 RBC 2.68 L (3.80-5.40) m/uL Hgb 8.9 L (11.4-16.0) gm/dL Hct 26.2 L (34.0-46.0) % RDW 16.7 H (11.5-15.5) % Plt Count 59 L (150-450) k/uL Neutrophils # 8.4 H (1.3-7.7) k/uL Lymphocytes # 0.8 L (1.0-4.8) k/uL POC Glucose (mg/dL) 135 H 156 H (70-110) mg/dL Microbiology - Last 24 Hours (Table) 06/16/24 22:03 Blood Culture - Preliminary Blood
--- NOTE | 2024-06-21 18:47 | P.PN ---
Subjective Progress Note Date: 06/21/24 Patient is an 89-year-old female with past medical history significant for dementia, hypertension, hyperlipidemia, diabetes mellitus, heart failure, breast cancer with previous lumpectomy, PAD, aortic aneurysm, among other things. She presented to emergency department back on 06/17/2024 with reports of worsening altered mental status, weakness, and frequent falls. Family reportedly unable to meet her requirements at home and requesting placement. Brain CT without contrast not showing any acute intracranial process. Unsure of patient's baseline mentation. Troponins were elevated on arrival, she was admitted with non-ST elevation [place]. Started on IV heparin. She is been evaluated by ca rdiology. Also, COVID-positive. Chest x-ray did not show any focal infiltrates or evidence of pneumonia. We were consulted late last night as the patient developed a rather large right upper arm hematoma. reportedly pulsating. Rapid response was called late last night for low blood pressures. She also had a near 4 g drop in her hemoglobin. Hgb 10.3 gm/dl on 06/18, and is down to 6.2 g/dL on redraw. Her heparin infusion had been stopped. Also stopped her aspirin. Most recent CBC: WBC count 13.3, hemoglobin 6.2, hematocrit 19.6, platelets low at 83,000. Coagulation profile: PT 14.4, INR 1.4, and most recent APTT 60.8. Patient was profoundly hypotensive during rapid response. She has been given a total of 1 L fluid bolus. Also, started on norepinephrine during the [facility]. I am evaluating this patient in the intensive care unit. She is alert but confused. Generalized pallor. She remains hypotensive with blood pressures 50s/20s mmHg. She has a large right upper extremity hematoma. Manual compression is being applied. Right upper extremity ultrasound estimating a 8.1 x 3.2 x 6.4 cm area of fluid with echoes within. Area started bleeding during the examination and exam was stopped. No recent interventions or lines to this upper extremity. On 06/21/2024, the patient is being seen for a follow-up. 89-year-old female patient who was in the intensive care unit for blood loss anemia the patient had developed a hematoma in the right upper extremity. The patient required packed RBC transfusion and the patient received a total of 2 units and IV heparin has been discontinued since. She does have multiple areas of skin bruising and skin abrasions and lacerations. Repeat hemoglobin from today is at 8.9. The white cell count is 9.7 and the platelet count is at 59. The patient is quite lethargic and weak. Oral intake is quite diminished. Respiratory status is stable and the patient is currently on room air oxygen with a pulse ox of 94%. She remains hemodynamically stable. The patient has underlying dementia and failure to thrive. Comorbidities are multiple including coronary artery disease, rheumatoid arthritis, degenerative arthritis, hypothyroidism, diabetes mellitus type 2, hyperlipidemia, peripheral vascular disease and chronic anxiety and depression. She was receiving also Enbrel on outpatient basis regarding her RA. There is also concern of her nutritional status as the patient's oral intake is quite diminished. Objective - Vital Signs Vital signs: Vital Signs Temp 98.1 F 06/21/24 08:56 Pulse 64 06/21/24 08:56 Resp 14 06/21/24 08:56 BP 129/68 06/21/24 08:56 Pulse Ox 100 06/21/24 08:56 FiO2 Intake & Output 06/20/24 06/21/24 06/21/24 18:59 06:59 18:59 Intake Total 1410 Output Total 230 600 Balance 1180 -600 Weight 63.8 kg Intake: IV 750 Sodium Chloride 0.9% 1, 700 000 ml @ 100 mls/hr IV . Q10H RIO Rx#:[id number] cefTRIAXone 1 gm In 50 Sodium Chloride 0.9% 50 ml @ 100 mls/hr IVPB Q12HR RIO Rx#:[id number] Blood Product 660 Platelet Pheresis Pas 350 Psoralen Unit [id number] Output: Urine 230 600 Other: Voiding Method Indwelling Catheter Indwelling Catheter - Exam GENERAL EXAM: Alert, 89-year-old female, generalized pallor, large right upper e xtremity hematoma, manual compression being applied. HEAD: Normocephalic and atraumatic EYES: Normal reaction of pupils, equal size. NOSE: Clear with pink turbinates. THROAT: No erythema or exudates. NECK: No masses, no JVD. CHEST: No chest wall deformity. LUNGS: Equal air entry with no crackles, wheeze, rhonchi or dullness. On room air oxygen. No conversational dyspnea or accessory muscle use.. CVS: S1 and S2 normal with no audible murmur, regular rhythm. No extra heart sounds ABDOMEN: No hepatosplenomegaly, active bowel sounds, no guarding or rigidity. SPINE: No scoliosis or deformity SKIN: Diffuse generalized ecchymosis CENTRAL NERVOUS SYSTEM: No focal deficits, tone is normal in all 4 extremities. EXTREMITIES: There is no peripheral edema, clubbing, or cyanosis. Peripheral pulses are intact. - Labs CBC & Chem 7: 06/21/24 11:36 06/20/24 10:40 Labs: Abnormal Lab Results - Last 24 Hours (Table) 06/18/24 06/20/24 06/20/24 Range/Units 00:01 10:40 10:40 WBC 11.0 H (3.8-10.6) k/uL RBC 2.55 L (3.80-5.40) m/uL Hgb 8.2 L D (11.4-16.0) gm/dL Hct 23.8 L (34.0-46.0) % RDW 16.3 H (11.5-15.5) % Plt Count 63 L (150-450) k/uL Neutrophils # 9.1 H (1.3-7.7) k/uL Lymphocytes # 0.9 L (1.0-4.8) k/uL PT 14.7 H (10.0-12.5) sec INR 1.4 H (<1.2) APTT 19.6 L (22.0-30.0) sec Sodium (137-145) mmol/L Chloride (98-107) mmol/L Carbon Dioxide (22-30) mmol/L BUN (7-17) mg/dL POC Glucose (mg/dL) (70-110) mg/dL Calcium (8.4-10.2) mg/dL Ionized Calcium [place] (4.5-5.3) mg/dL Iron 36 L (50-170) UG/DL TIBC 210 L (228-460) UG/DL Transferrin 150.0 L (204.0-354.0) mg/dL Total Bilirubin (0.2-1.3) mg/dL AST (14-36) U/L Alkaline Phosphatase (38-126) U/L Total Protein (6.3-8.2) g/dL Albumin (3.5-5.0) g/dL 06/20/24 06/20/24 06/20/24 Range/Units 10:40 14:07 16:54 WBC (3.8-10.6) k/uL RBC (3.80-5.40) m/uL Hgb (11.4-16.0) gm/dL Hct (34.0-46.0) % RDW (11.5-15.5) % Plt Count (150-450) k/uL Neutrophils # (1.3-7.7) k/uL Lymphocytes # (1.0-4.8) k/uL PT (10.0-12.5) sec INR (<1.2) APTT (22.0-30.0) sec Sodium 132 L (137-145) mmol/L Chloride 112 H (98-107) mmol/L Carbon Dioxide 13 L (22-30) mmol/L BUN 30 H (7-17) mg/dL POC Glucose (mg/dL) 130 H (70-110) mg/dL Calcium 6.0 L* (8.4-10.2) mg/dL Ionized Calcium [place] 3.8 L (4.5-5.3) mg/dL Iron (50-170) UG/DL TIBC (228-460) UG/DL Transferrin (204.0-354.0) mg/dL Total Bilirubin 1.7 H (0.2-1.3) mg/dL AST 38 H (14-36) U/L Alkaline Phosphatase <20 L (38-126) U/L Total Protein 3.5 L (6.3-8.2) g/dL Albumin 1.7 L (3.5-5.0) g/dL 06/20/24 Range/Units 20:54 WBC (3.8-10.6) k/uL RBC (3.80-5.40) m/uL Hgb (11.4-16.0) gm/dL Hct (34.0-46.0) % RDW (11.5-15.5) % Plt Count (150-450) k/uL Neutrophils # (1.3-7.7) k/uL Lymphocytes # (1.0-4.8) k/uL PT (10.0-12.5) sec INR (<1.2) APTT (22.0-30.0) sec Sodium (137-145) mmol/L Chloride (98-107) mmol/L Carbon Dioxide (22-30) mmol/L BUN (7-17) mg/dL POC Glucose (mg/dL) 135 H (70-110) mg/dL Calcium (8.4-10.2) mg/dL Ionized Calcium [place] (4.5-5.3) mg/dL Iron (50-170) UG/DL TIBC (228-460) UG/DL Transferrin (204.0-354.0) mg/dL Total Bilirubin (0.2-1.3) mg/dL AST (14-36) U/L Alkaline Phosphatase (38-126) U/L Total Protein (6.3-8.2) g/dL Albumin (3.5-5.0) g/dL Microbiology - Last 24 Hours (Table) 06/16/24 22:03 Blood Culture - Preliminary Blood Assessment and Plan Assessment: Right upper extremity hematoma, patient was on IV heparin and aspirin, when she was noted to develop a large right upper extremity hematoma. Right upper extremity ultrasound estimating a 8.1 x 3.2 x 6.4 cm area of fluid with echoes within. CT scan of the right upper extremity shows intact vasculature and there is no evidence of any arterial bleed. The hematoma is stable and the patient is currently on IV heparin and hemoglobin stable at 8.9. Acute blood loss anemia, posttransfusion with a total of 2 units of packed RBC and the hemoglobin currently is at 8.9 Hypotension and shock, hypovolemic/hemorrhagic, recovered and the patient is currently normotensive Acute COVID infection, chest x-ray does not show any focal traits or evidence of COVID-pneumonia. On room air oxygen Acute leukocytosis Elevated troponins, worked up for non-ST elevation [place], and was previously on heparin infusion. Echocardiogram estimating a left ventricular ejection fraction of 65 to 70%, aortic sclerosis and mild aortic stenosis, severe mitral annular calcification with mild mitral regurgitation. Frequent falls Failure to thrive History of advanced dementia, takes Namenda outpatient basis History of hyperlipidemia History of hypertension History of diabetes mellitus History of hypothyroidism History of CAD History PAD History of GI bleed, last EGD/colonoscopy October, showing erosive esophagitis, gastritis, segment of bleeding from stomach, hiatal hernia. Col onoscopy with findings of external and internal hemorrhoids, diverticulosis, and removal of 2 polyps. History of breast cancer with previous lumpectomy Plan: Hemoglobin is stable at 8.9 Patient is on room air oxygen IV heparin has been discontinued Monitor hemoglobin and platelet count Patient was transferred out of the intensive care unit and the patient is currently on the medical floor DNR/DNI CODE STATUS Failure to thrive PEG tube versus comfort care measures to be further followed up and determined with the primary care. Prognosis poor based on above-mentioned comorbidities.
[2024-06-21 20:19] LABS: Glucose,Whole Blood 132 mg/dL (70-110)
[2024-06-22 06:09] LABS: Glucose,Whole Blood 75 mg/dL (70-110)
[2024-06-22 11:24] LABS: Glucose,Whole Blood 136 mg/dL (70-110)
[2024-06-22 12:08] LABS: Anisocytosis Slight; Basophils % (A) 1 %; Eosinophils # (A) 0.1 k/uL (0-0.7); Eosinophils % (A) 1 %; HCT 25.7 % (34.0-46.0); HGB 8.3 gm/dL (11.4-16.0); Lymphocytes # (A) 0.6 k/uL (1.0-4.8); Lymphocytes % (A) 10 %; MCH 31.5 pg (25.0-35.0); MCHC 32.2 g/dL (31.0-37.0); Macrocytosis Slight; Mean Platelet Volume 9.6; Monocytes # (A) 0.3 k/uL (0-1.0); Monocytes % (A) 5 %; Neutrophils # (A) 5.2 k/uL (1.3-7.7); Neutrophils % (A) 82 %; Platelet Count 63 k/uL (150-450); Poikilocytosis Slight; RBC 2.62 m/uL (3.80-5.40); RDW 18.1 % (11.5-15.5); WBC 6.3 k/uL (3.8-10.6)
[2024-06-22 12:22] LABS: ALT 17 U/L (4-34); African American GFR (CKD) >90 (>60 ml/min/1.73 sqM); Albumin 1.9 g/dL (3.5-5.0); Anion Gap 6 mmol/L; Bilirubin, Delta 0.4 mg/dL (0.0-0.2); Bilirubin,Unconjugated 0.6 mg/dL (0.0-1.1); Blood Urea Nitrogen 9 mg/dL (7-17); Carbon Dioxide 12 mmol/L (22-30); Chloride 116 mmol/L (98-107); Glucose 116 mg/dL (74-99); Non-African American GFR(CKD) 83 (>60 ml/min/1.73 sqM); Sodium 134 mmol/L (137-145); Total Protein 3.9 g/dL (6.3-8.2)
[2024-06-22 12:24] LABS: Reticulocyte % 3.7 % (0.5-2.0)
[2024-06-22 12:36] LABS: AST 32 U/L (14-36); Alkaline Phosphatase 40 U/L (38-126); Calcium 6.4 mg/dL (8.4-10.2); Magnesium 1.8 mg/dL (1.6-2.3); Potassium 3.6 mmol/L (3.5-5.1)
--- NOTE | 2024-06-22 13:27 | CDI ---
Documentation Clarification Form Date: 06/22/2024 12:13:03 PM From: Akanksha Soto RN, CCDS Phone: [phone] Admit Date: 06/17/2024 08:47:00 PM Patient Name: Delmy Collazo Visit Number: [id number] Discharge Date: ATTENTION: The Clinical Documentation Specialists (CDI) and [facility] Coding Staff appreciate your assistance in clarifying documentation. Please respond to the clarification below the line at the bottom and electronically sign. The CDI & [facility] Coding staff will review the response and follow-up if needed. Please note: Queries are made part of the Legal Health Record. If you have any questions, please contact the author of this message via ITS. Doctor. Issac Olivia The patients principal diagnosis the diagnosis that was chiefly responsible for the admission - has not been clearly identified and clarification is requested. The patient presented with the following 06/17/24 with signs and symptoms of altered mental status, Metabolic encephalopathy, she has failure to thrive Stool and urinary incontinence. COVID positive. HX of major depressive disorder. Acute troponin elevation with acute coronary syndrome (is this NSTEMI per Vascular progress notes starting 06/20) History/Risk factors: Cancer, Heart Failure, Diabetes Mellitus, GERD/Reflux, Hyperlipidemia, Hypertension, Memory Impairment, Rheumatoid Arthritis (RA), Clinical Indicators: 89-year-old female present to ED with reports of worsening altered mental status, weakness, and frequent falls. Brain CT without contrast not showing any acute intracranial process. Troponins were elevated on arrival; she was admitted with non-ST elevation [place]. Started on IV heparin. Chest x-ray did not show any focal infiltrates or pneumonia. She developed large right upper arm hematoma. Rapid response for low blood pressure and had near 4 g drop in her hemoglobin 10.3 gm/dl on 06/18 down to 6.2 g/mdl redraw. WBC 14.2. NA+ 134, BUN 47, CR 1.07 Trop 0.076, 0.095, 0.108 COVID + CT brain: no ac process Treatment: Cardiac/telemetry monitoring Heparin Drip per orders Lipitor 40 MG PO HS, Imdur 20 MG PO Daily, Lopressor 12.5 MG PO BID Neuro checks per protocol Monitor CBC with differential per orders Rocephin 1 GM IVPB Q 12 .9NS @ 100 ML/HR Ascorbic Acid 1,000MG PO Daily, Zinc Sulfate 220 MG PO Daily 06/18 Cardiology Consults: Metabolic encephalopathy, Elevated troponins most likely secondary to COVID-19 Thrombocytopenia, COVID-19, Dementia. Continue heparin drip. No plan for aggressive cardiac workup at this time. ID: generalized weakness in this patient who also recently have a fall and tested positive for COVID-19 could be responsible for her symptoms not hypoxic and no infiltrate on CXR. Patient will be continued with supportive treatment of zinc ascorbic acid and monitor clinical course closely. In your professional opinion, can you please clarify which diagnosis, after study, was the reason chiefly responsible for the admission? [ x] Generalized weakness with Age related cognitive decline [ ] COVID -19 Infection [ x ] Generalized weakness with age-related physical debility [ x ] NSTEMI present on admission [ x ] Metabolic encephalopathy possible related to COVID -19 Infection [ x] confusion with progression of dementia (further specify type if known [ ] other, Specify [ ] Unable to determine (Template Last Revised: September 2020) MTDD
--- NOTE | 2024-06-22 13:40 | P.PN ---
Subjective Progress Note Date: 06/22/24 The patient is an 89 female patient with known history of coronary artery disease as well as multiple comorbid conditions including hypertension and dyslipidemia and peripheral arterial disease as well as multiple comorbid conditions including underlying dementia who was admitted to the hospital with a change in mental status and she was diagnosed with COVID-19 infection and we consulted to see patient because of abnormal cardiac enzymes with a finding consistent with acute coronary syndrome. We advised medical treatment. Subsequently the patient was started on heparin IV and she underwent an echo which revealed normal LV systolic function with mild aortic stenosis. After that the patient developed right arm hematoma and the heparin was stopped and she dropped her hemoglobin down and she received blood transfusion. June 20, 2024 The patient was seen and evaluated this morning. She is hemodynamically stable at this point. She has been maintaining normal sinus mechanism. The hemoglobin is stable after the blood transfusion. The hematoma is better. The heparin is currently off. The echo is as described above showed normal LV systolic function with mild aortic stenosis only. The physical examination is remarkable for stable vital signs with regular rhythm and the patient has been maintaining normal sinus mechanism. June 21, 2024 Patient is seen and examined. Patient has been transferred out of ICU and is seen today on the cardiac stepdown unit. Patient denies having any chest pain at this time no significant shortness of breath at rest. Blood pressure 134/60, heart rate 55, pulse ox 99% on room air. No repeat blood work today. The physical examination is remarkable for stable vital signs with regular rhythm and the patient has been maintaining normal sinus mechanism. June 22, 2024 Patient seen and examined. Patient denies having chest pain. No shortness of breath. patient has been hemodynamically stable. Blood pressure 129/68, heart rate 67, pulse ox 93% on room air. No further cardiac workup at this time. Assessment COVID-19 infection Change in mental status Abnormal cardiac enzymes most likely secondary to COVID-19 Thrombocytopenia Multiple comorbid conditions Right upper extremity ecchymosis we will secondary to fall and anticoagulation Plan Continue monitoring the hemoglobin Avoid any anticoagulation at this point No further cardiac workup at this time. Cardiology will sign off and follow on an as-needed basis. Nurse practitioner note has been reviewed, I agree with documented findings and plan of care. Patient was seen and examined. Objective - Vital Signs Vital signs: Vital Signs Temp 98.1 F 06/22/24 11:15 Pulse 67 06/22/24 11:15 Resp 14 06/22/24 11:15 BP 129/68 06/22/24 11:15 Pulse Ox 93 L 06/22/24 11:15 FiO2 Intake & Output 06/21/24 06/22/24 06/22/24 18:59 06:59 18:59 Intake Total 600 Output Total 250 150 Balance -250 -150 600 Weight 62 kg Intake: Oral 600 Output: Urine 250 150 Other: Voiding Method Indwelling Catheter Indwelling Catheter Indwelling Catheter - Labs CBC & Chem 7: 06/22/24 11:52 06/22/24 11:57 Labs: Abnormal Lab Results - Last 24 Hours (Table) 06/21/24 06/21/24 06/22/24 Range/Units 16:27 20:18 11:22 RBC (3.80-5.40) m/uL Hgb (11.4-16.0) gm/dL Hct (34.0-46.0) % RDW (11.5-15.5) % Plt Count (150-450) k/uL Lymphocytes # (1.0-4.8) k/uL Retic Count (0.5-2.0) % Sodium (137-145) mmol/L Chloride (98-107) mmol/L Carbon Dioxide (22-30) mmol/L Glucose (74-99) mg/dL POC Glucose (mg/dL) 156 H 132 H 136 H (70-110) mg/dL Calcium (8.4-10.2) mg/dL Delta Bilirubin (0.0-0.2) mg/dL Total Protein (6.3-8.2) g/dL Albumin (3.5-5.0) g/dL 06/22/24 06/22/24 Range/Units 11:52 11:57 RBC 2.62 L (3.80-5.40) m/uL Hgb 8.3 L (11.4-16.0) gm/dL Hct 25.7 L (34.0-46.0) % RDW 18.1 H (11.5-15.5) % Plt Count 63 L (150-450) k/uL Lymphocytes # 0.6 L (1.0-4.8) k/uL Retic Count 3.7 H (0.5-2.0) % Sodium 134 L (137-145) mmol/L Chloride 116 H (98-107) mmol/L Carbon Dioxide 12 L (22-30) mmol/L Glucose 116 H (74-99) mg/dL POC Glucose (mg/dL) (70-110) mg/dL Calcium 6.4 L* (8.4-10.2) mg/dL Delta Bilirubin 0.4 H (0.0-0.2) mg/dL Total Protein 3.9 L (6.3-8.2) g/dL Albumin 1.9 L (3.5-5.0) g/dL Microbiology - Last 24 Hours (Table) 06/16/24 22:03 Blood Culture - Preliminary Blood
--- NOTE | 2024-06-22 14:45 | P.PN ---
Subjective Progress Note Date: 06/22/24 Patient is an 89-year-old female with past medical history significant for dementia, hypertension, hyperlipidemia, diabetes mellitus, heart failure, breast cancer with previous lumpectomy, PAD, aortic aneurysm, among other things. She presented to emergency department back on 06/17/2024 with reports of worsening altered mental status, weakness, and frequent falls. Family reportedly unable to meet her requirements at home and requesting placement. Brain CT without contrast not showing any acute intracranial process. Unsure of patient's baseline mentation. Troponins were elevated on arrival, she was admitted with non-ST elevation PR. Started on IV heparin. She is been evaluated by ca rdiology. Also, COVID-positive. Chest x-ray did not show any focal infiltrates or evidence of pneumonia. We were consulted late last night as the patient developed a rather large right upper arm hematoma. reportedly pulsating. Rapid response was called late last night for low blood pressures. She also had a near 4 g drop in her hemoglobin. Hgb 10.3 gm/dl on 06/18, and is down to 6.2 g/dL on redraw. Her heparin infusion had been stopped. Also stopped her aspirin. Most recent CBC: WBC count 13.3, hemoglobin 6.2, hematocrit 19.6, platelets low at 83,000. Coagulation profile: PT 14.4, INR 1.4, and most recent APTT 60.8. Patient was profoundly hypotensive during rapid response. She has been given a total of 1 L fluid bolus. Also, started on norepinephrine during the [facility]. I am evaluating this patient in the intensive care unit. She is alert but confused. Generalized pallor. She remains hypotensive with blood pressures 50s/20s mmHg. She has a large right upper extremity hematoma. Manual compression is being applied. Right upper extremity ultrasound estimating a 8.1 x 3.2 x 6.4 cm area of fluid with echoes within. Area started bleeding during the examination and exam was stopped. No recent interventions or lines to this upper extremity. On 06/21/2024, the patient is being seen for a follow-up. 89-year-old female patient who was in the intensive care unit for blood loss anemia the patient had developed a hematoma in the right upper extremity. The patient required packed RBC transfusion and the patient received a total of 2 units and IV heparin has been discontinued since. She does have multiple areas of skin bruising and skin abrasions and lacerations. Repeat hemoglobin from today is at 8.9. The white cell count is 9.7 and the platelet count is at 59. The patient is quite lethargic and weak. Oral intake is quite diminished. Respiratory status is stable and the patient is currently on room air oxygen with a pulse ox of 94%. She remains hemodynamically stable. The patient has underlying dementia and failure to thrive. Comorbidities are multiple including coronary artery disease, rheumatoid arthritis, degenerative arthritis, hypothyroidism, diabetes mellitus type 2, hyperlipidemia, peripheral vascular disease and chronic anxiety and depression. She was receiving also Enbrel on outpatient basis regarding her RA. There is also concern of her nutritional status as the patient's oral intake is quite diminished. On 06/22/2024, the patient is being seen for a follow-up. Patient is doing well with no specific complaints. Hemoglobin is remaining stable at 8.3. She feels better compared to yesterday. She remains hemodynamically stable. Platelet count remains low at 63. Stable. As for the rest of the blood work, the p atient has a component of non-anion gap metabolic acidosis. Serum bicarbonate 12 with a gap of 6. Her total calcium level was also low and 6.4 and ionized calcium is being monitored and measures. LFTs are normal. The patient denies having any other new complaints. The hematoma in the right upper extremity remains unchanged. Objective - Vital Signs Vital signs: Vital Signs Temp 98.1 F 06/22/24 11:15 Pulse 67 06/22/24 11:15 Resp 14 06/22/24 11:15 BP 129/68 06/22/24 11:15 Pulse Ox 93 L 06/22/24 11:15 FiO2 Intake & Output 06/21/24 06/22/24 06/22/24 18:59 06:59 18:59 Intake Total 360 Output Total 250 150 Balance -250 -150 360 Weight 62 kg Intake: Oral 360 Output: Urine 250 150 Other: Voiding Method Indwelling Catheter Indwelling Catheter Indwelling Catheter - Exam GENERAL EXAM: Alert, 89-year-old female, generalized pallor, large right upper extremity hematoma, manual compression being applied. HEAD: Normocephalic and atraumatic EYES: Normal reaction of pupils, equal size. NOSE: Clear with pink turbinates. THROAT: No erythema or exudates. NECK: No masses, no JVD. CHEST: No chest wall deformity. LUNGS: Equal air entry with no crackles, wheeze, rhonchi or dullness. On room air oxygen. No conversational dyspnea or accessory muscle use.. CVS: S1 and S2 normal with no audible murmur, regular rhythm. No extra heart sounds ABDOMEN: No hepatosplenomegaly, active bowel sounds, no guarding or rigidity. SPINE: No scoliosis or deformity SKIN: Diffuse generalized ecchymosis CENTRAL NERVOUS SYSTEM: No focal deficits, tone is normal in all 4 extremities. EXTREMITIES: There is no peripheral edema, clubbing, or cyanosis. Peripheral pulses are intact. - Labs CBC & Chem 7: 06/22/24 11:52 06/22/24 11:57 Labs: Abnormal Lab Results - Last 24 Hours (Table) 06/21/24 06/21/24 06/21/24 Range/Units 11:36 16:27 20:18 RBC 2.68 L (3.80-5.40) m/uL Hgb 8.9 L (11.4-16.0) gm/dL Hct 26.2 L (34.0-46.0) % RDW 16.7 H (11.5-15.5) % Plt Count 59 L (150-450) k/uL Neutrophils # 8.4 H (1.3-7.7) k/uL Lymphocytes # 0.8 L (1.0-4.8) k/uL POC Glucose (mg/dL) 156 H 132 H (70-110) mg/dL 06/22/24 Range/Units 11:22 RBC (3.80-5.40) m/uL Hgb (11.4-16.0) gm/dL Hct (34.0-46.0) % RDW (11.5-15.5) % Plt Count (150-450) k/uL Neutrophils # (1.3-7.7) k/uL Lymphocytes # (1.0-4.8) k/uL POC Glucose (mg/dL) 136 H (70-110) mg/dL Microbiology - Last 24 Hours (Table) 06/16/24 22:03 Blood Culture - Preliminary Blood Assessment and Plan Assessment: Right upper extremity hematoma, patient was on IV heparin and aspirin, when she was noted to develop a large right upper extremity hematoma. Right upper extremity ultrasound estimating a 8.1 x 3.2 x 6.4 cm area of fluid with echoes within. CT scan of the right upper extremity shows intact vasculature and there is no evidence of any arterial bleed. The hematoma is stable and the patient is currently on IV heparin and hemoglobin stable at 8.3 Acute blood loss anemia, posttransfusion with a total of 2 units of packed RBC and the hemoglobin currently is at 8.3 Hypotension and shock, hypovolemic/hemorrhagic, recovered and the patient is currently normotensive Acute COVID infection, chest x-ray does not show any focal traits or evidence of COVID-pneumonia. On room air oxygen Acute leukocytosis Elevated troponins, worked up for non-ST elevation PR, and was previously on heparin infusion. Echocardiogram estimating a left ventricular ejection fraction of 65 to 70%, aortic sclerosis and mild aortic stenosis, severe mitral annular calcification with mild mitral regurgitation. Frequent falls Failure to thrive History of advanced dementia, takes Namenda outpatient basis History of hyperlipidemia History of hypertension History of diabetes mellitus History of hypothyroidism History of CAD History PAD History of GI bleed, last EGD/colonoscopy October, showing erosive esophagitis, gastritis, segment of bleeding from stomach, hiatal hernia. Colonoscopy with findings of external and internal hemorrhoids, diverticulosis, and removal of 2 polyps. History of breast cancer with previous lumpectomy Hypocalcemia, awaiting ionized calcium and the patient was given IV calcium supplements Plan: Hemoglobin is stable at 8.3 Patient is on room air oxygen IV heparin has been discontinued Monitor hemoglobin and platelet count Patient was transferred out of the intensive care unit and the patient is currently on the medical floor DNR/DNI CODE STATUS Failure to thrive PEG tube versus comfort care measures to be further followed up and determined with the primary care. Prognosis poor based on above-mentioned comorbidities. Pulmonary critical care services will sign off the case. Patient is a DNR/DNI CODE STATUS
[2024-06-22] MEDS: CALCIUM GLUCONATE IN NACL 1 GM in SALINE 1 100ML.BAG IVPB ONE (15:49)
--- NOTE | 2024-06-22 15:54 | P.PN ---
Subjective Progress Note Date: 06/22/24 Progress note Date of service 06/22/[address] Olivia The progress has been discussed with her on the phone today after patient seen. Patient seen today evaluated and she is awake alert able to eat breakfast and able to drink however that was minimal and at this time we are progressing and improving we will be starting her on regular diet. And advance it as tolerated. Also we are advancing on the physical therapy and they came but no action at this time patient is not yet out of the bed and not ambulatory. In regard of alf placement for forethought rehabilitation, we do not have a bed yet at [facility] which is planned to go and do the communication with her nurse stated that probably by Tuesday or next week sometimes when the bed is available. I discussed this finding with her on the phone in detail. On discussion with the nurse Maday they request mid line, however at this time we try to avoid any Because patient has been let with the anemia and as well as we hope that going to alf without any fourth or poking. But if the IV has been infiltrated we have to do the midline Dr. Jernigan cardiology did cleared the patient to be transferred to regular floor fourth floor however patient have currently hypocalcemia and the need for calciu m transfusion and that could not be done on the fourth floor as well as she acidotic with the carbon dioxide is 12 and need for further adjustment of her IV fluid. I did discuss it with the pharmacy and the patient will be receiving calcium gluconate IV piggyback over 1 hour slowl IV fluid will be changed from normal saline to 0.45% saline with added 2 amp of sodium bicarb which will help also her mild hyponatremia. Vital sign: Temperature 98.1 F oral and pulse 67 bpm sinus respiratory rate 14/m in nonlabored and blood pressure is 129/68 with the mean arterial pressure 88. Her oxygen saturation has been fluctuating on room air was today 100% and then subsequently down to 93. Laboratory him WBC 6.3 and hemoglobin 8.3 and hematocrit 25.7 and platelet count 63 still with mild thrombocytopenia and the reticulocyte count is 3.7 secondary to recent bleeding from the right arm. Sodium 134 mild hyponatremia potassium 3.6 and chloride 116 carbon dioxide is 12 with the probably underlying metabolic acidosis her creatinine 0.56 and EGFR 83 Glucose 116 with the diabetes mellitus fairly controlled, POC glucose has been also controlled 75-1 36. The calcium was 6.4 still in the low and prior ionized calcium was also low 3.8 Today patient changed to her mental status and improved she is awake alert she knows where she is she knows also my name and that she was asking her for hamburger sandwich. To eat and we will improve her diet to regular diet. The head was normocephalic atraumatic pupil was equal reactive and she is able to have her denture available and she have it in her mouth. And the neck was supple no JVD no thyromegaly no lymphadenopathy trachea midline. Chest is normal breath sound and no shortness of breath no labor feeling Her blood pressure is fluctuating however it is in the normal range. Heart is regular sinus rhythm and on admission she had elevated troponin with the possible non-STEMI and ID also cardiology contributed that to COVID which has been treated as outpatient prior to admission to the hospital but because patient with history of rheumatoid arthritis and immunocompromise she has prolonged COVID testing which may reach up to 2 to 3 months to stretch to back to normal. Abdomen soft positive bowel sound no tenderness and no pain. Extremities and she had significant hematoma with drop of her hemoglobin and transfused 2 units of RBCs and 1 units of platelet no further bleeding and has had her hemoglobin has been improved from the 6 and currently to 8.3. We did not start any iron supplementation until patient able to fully able to eat and swallow because of the irritation of the stomach with a higher. Pulses is intact bilateral with extensive ecchymosis and hematoma of the right arm and several skin tear with the frequent fall. Psychiatry currently stable without agitation and she wake up Neurological no lateralizing sign however old CAT scan was indicating lacunar infarction on the left internal capsule the current 1 on this admission was negative. Assessment: #1 altered mental status on admission 2. Failure to thrive 3. Inability to stand up or walk 4. Incontinent of urine and BM 5. Patient was in ICU and had Barger catheter and also covered with Rocephin 6. Diabetes mellitus type 2 controlled 7. Hypertension and hypertensive heart disease controlled 8. Coronary artery disease with three-vessel disease 9. On admission she had elevated troponin with the non-STEMI ID no chest pain. 10. History of COVID treated with antiviral and steroid prior to the admission however about 10 days. 11. Rheumatoid arthritis was on Enbrel with immune compromised. 12. Extensive bleeding from the right arm venous side and skin laceration with the frequent fall and bleeding 13. Blood loss with anemia transfused 2 units of packed RBCs as well as 1 units of platelet. She #14 history of peripheral vascular disease with the aorto fem bypass by vascular surgeon Dr. Perkins. 15. Major depressive disorder with anxiety 16. History of dementia with the loss of midline function. 17 mild hyponatremia 18. Mild metabolic acidosis, renal function recovered 18. Dehydration. Plan: 1. Calcium gluconate 1 g slowly over 1 hour IV 2. 0.45% saline and 2 amp of bicarb for continuing transfusion IV 100 cc/h 3. Patient could not transfer to regular floor with the supplementation 4. Waiting for bed at [facility] as patient debilitated and need for thorough rehabilitation in the alf. Objective - Vital Signs Vital signs: Vital Signs Temp 98.1 F 06/22/24 11:15 Pulse 67 06/22/24 11:15 Resp 14 06/22/24 11:15 BP 129/68 06/22/24 11:15 Pulse Ox 93 L 06/22/24 11:15 FiO2 Intake & Output 06/21/24 06/22/24 06/22/24 18:59 06:59 18:59 Intake Total 600 Output Total 250 150 325 Balance -250 -150 275 Weight 62 kg Intake: Oral 600 Output: Urine 250 150 325 Other: Voiding Method Indwelling Catheter Indwelling Catheter Indwelling Catheter - Labs CBC & Chem 7: 06/22/24 11:52 06/22/24 11:57 Labs: Abnormal Lab Results - Last 24 Hours (Table) 06/21/24 06/21/24 06/22/24 Range/Units 16:27 20:18 11:22 RBC (3.80-5.40) m/uL Hgb (11.4-16.0) gm/dL Hct (34.0-46.0) % RDW (11.5-15.5) % Plt Count (150-450) k/uL Lymphocytes # (1.0-4.8) k/uL Retic Count (0.5-2.0) % Sodium (137-145) mmol/L Chloride (98-107) mmol/L Carbon Dioxide (22-30) mmol/L Glucose (74-99) mg/dL POC Glucose (mg/dL) 156 H 132 H 136 H (70-110) mg/dL Calcium (8.4-10.2) mg/dL Delta Bilirubin (0.0-0.2) mg/dL Total Protein (6.3-8.2) g/dL Albumin (3.5-5.0) g/dL 06/22/24 06/22/24 Range/Units 11:52 11:57 RBC 2.62 L (3.80-5.40) m/uL Hgb 8.3 L (11.4-16.0) gm/dL Hct 25.7 L (34.0-46.0) % RDW 18.1 H (11.5-15.5) % Plt Count 63 L (150-450) k/uL Lymphocytes # 0.6 L (1.0-4.8) k/uL Retic Count 3.7 H (0.5-2.0) % Sodium 134 L (137-145) mmol/L Chloride 116 H (98-107) mmol/L Carbon Dioxide 12 L (22-30) mmol/L Glucose 116 H (74-99) mg/dL POC Glucose (mg/dL) (70-110) mg/dL Calcium 6.4 L* (8.4-10.2) mg/dL Delta Bilirubin 0.4 H (0.0-0.2) mg/dL Total Protein 3.9 L (6.3-8.2) g/dL Albumin 1.9 L (3.5-5.0) g/dL Microbiology - Last 24 Hours (Table) 06/16/24 22:03 Blood Culture - Preliminary Blood
[2024-06-22 16:25] LABS: Glucose,Whole Blood 162 mg/dL (70-110)
[2024-06-22] MEDS: SODIUM CHLORIDE 0.45% 1,000 ML with SODIUM BICARB (1 MEQ/ML) 100 ML IV SCH (17:28)
[2024-06-22 20:30] LABS: Glucose,Whole Blood 181 mg/dL (70-110)
[2024-06-22 20:49] LABS: Prealbumin 10.5 mg/dL (18.0-42.0)
[2024-06-23 06:18] LABS: Glucose,Whole Blood 103 mg/dL (70-110)
[2024-06-23 11:36] LABS: Glucose,Whole Blood 114 mg/dL (70-110)
--- NOTE | 2024-06-23 13:03 | P.PN ---
Subjective Progress Note Date: 06/23/24 Patient is an 89-year-old female with past medical history significant for dementia, hypertension, hyperlipidemia, diabetes mellitus, heart failure, breast cancer with previous lumpectomy, PAD, aortic aneurysm, among other things. She presented to emergency department back on 06/17/2024 with reports of worsening altered mental status, weakness, and frequent falls. Family reportedly unable to meet her requirements at home and requesting placement. Brain CT without contrast not showing any acute intracranial process. Unsure of patient's baseline mentation. Troponins were elevated on arrival, she was admitted with non-ST elevation MO. Started on IV heparin. She is been evaluated by ca rdiology. Also, COVID-positive. Chest x-ray did not show any focal infiltrates or evidence of pneumonia. We were consulted late last night as the patient developed a rather large right upper arm hematoma. reportedly pulsating. Rapid response was called late last night for low blood pressures. She also had a near 4 g drop in her hemoglobin. Hgb 10.3 gm/dl on 06/18, and is down to 6.2 g/dL on redraw. Her heparin infusion had been stopped. Also stopped her aspirin. Most recent CBC: WBC count 13.3, hemoglobin 6.2, hematocrit 19.6, platelets low at 83,000. Coagulation profile: PT 14.4, INR 1.4, and most recent APTT 60.8. Patient was profoundly hypotensive during rapid response. She has been given a total of 1 L fluid bolus. Also, started on norepinephrine during the [facility]. I am evaluating this patient in the intensive care unit. She is alert but confused. Generalized pallor. She remains hypotensive with blood pressures 50s/20s mmHg. She has a large right upper extremity hematoma. Manual compression is being applied. Right upper extremity ultrasound estimating a 8.1 x 3.2 x 6.4 cm area of fluid with echoes within. Area started bleeding during the examination and exam was stopped. No recent interventions or lines to this upper extremity. On 06/21/2024, the patient is being seen for a follow-up. 89-year-old female patient who was in the intensive care unit for blood loss anemia the patient had developed a hematoma in the right upper extremity. The patient required packed RBC transfusion and the patient received a total of 2 units and IV heparin has been discontinued since. She does have multiple areas of skin bruising and skin abrasions and lacerations. Repeat hemoglobin from today is at 8.9. The white cell count is 9.7 and the platelet count is at 59. The patient is quite lethargic and weak. Oral intake is quite diminished. Respiratory status is stable and the patient is currently on room air oxygen with a pulse ox of 94%. She remains hemodynamically stable. The patient has underlying dementia and failure to thrive. Comorbidities are multiple including coronary artery disease, rheumatoid arthritis, degenerative arthritis, hypothyroidism, diabetes mellitus type 2, hyperlipidemia, peripheral vascular disease and chronic anxiety and depression. She was receiving also Enbrel on outpatient basis regarding her RA. There is also concern of her nutritional status as the patient's oral intake is quite diminished. On 06/22/2024, the patient is being seen for a follow-up. Patient is doing well with no specific complaints. Hemoglobin is remaining stable at 8.3. She feels better compared to yesterday. She remains hemodynamically stable. Platelet count remains low at 63. Stable. As for the rest of the blood work, the p atient has a component of non-anion gap metabolic acidosis. Serum bicarbonate 12 with a gap of 6. Her total calcium level was also low and 6.4 and ionized calcium is being monitored and measures. LFTs are normal. The patient denies having any other new complaints. The hematoma in the right upper extremity remains unchanged. On 06/23/2024, patient is having some episodes of confusion. Hemodynamically stable. Hemoglobin was stable from yesterday. The patient is a very difficult blood draw and unable to obtain a follow-up hemoglobin level from today. Meanwhile, the patient was found also to have a component of an anion gap metabolic acidosis and the patient is currently on a bicarb infusion at rate of 100 cc an hour. Rest of the medications remain unchanged. The patient remains on room air oxygen. Clinically stable. Hemodynamically stable. No hypotension. Objective - Vital Signs Vital signs: Vital Signs Temp 98.1 F 06/23/24 04:00 Pulse 71 06/23/24 04:00 Resp 14 06/23/24 04:00 BP 158/72 06/23/24 04:00 Pulse Ox 100 06/23/24 04:00 FiO2 Intake & Output 06/22/24 06/23/24 06/23/24 18:59 06:59 18:59 Intake Total 840 Output Total 325 650 Balance 515 -650 Weight 63 kg Intake: Oral 840 Output: Urine 325 650 Other: Voiding Method Indwelling Catheter Indwelling Catheter - Exam GENERAL EXAM: Alert, 89-year-old female, generalized pallor, large right upper extremity hematoma, manual compression being applied. HEAD: Normocephalic and atraumatic EYES: Normal reaction of pupils, equal size. NOSE: Clear with pink turbinates. THROAT: No erythema or exudates. NECK: No masses, no JVD. CHEST: No chest wall deformity. LUNGS: Equal air entry with no crackles, wheeze, rhonchi or dullness. On room air oxygen. No conversational dyspnea or accessory muscle use.. CVS: S1 and S2 normal with no audible murmur, regular rhythm. No extra heart sounds ABDOMEN: No hepatosplenomegaly, active bowel sounds, no guarding or rigidity. SPINE: No scoliosis or deformity SKIN: Diffuse generalized ecchymosis CENTRAL NERVOUS SYSTEM: No focal deficits, tone is normal in all 4 extremities. EXTREMITIES: There is no peripheral edema, clubbing, or cyanosis. Peripheral pulses are intact. - Labs CBC & Chem 7: 06/22/24 11:52 06/22/24 11:57 Labs: Abnormal Lab Results - Last 24 Hours (Table) 06/22/24 06/22/24 06/22/24 Range/Units 11:22 11:52 11:57 RBC 2.62 L (3.80-5.40) m/uL Hgb 8.3 L (11.4-16.0) gm/dL Hct 25.7 L (34.0-46.0) % RDW 18.1 H (11.5-15.5) % Plt Count 63 L (150-450) k/uL Lymphocytes # 0.6 L (1.0-4.8) k/uL Retic Count 3.7 H (0.5-2.0) % Sodium 134 L (137-145) mmol/L Chloride 116 H (98-107) mmol/L Carbon Dioxide 12 L (22-30) mmol/L Glucose 116 H (74-99) mg/dL POC Glucose (mg/dL) 136 H (70-110) mg/dL Calcium 6.4 L* (8.4-10.2) mg/dL Delta Bilirubin 0.4 H (0.0-0.2) mg/dL Total Protein 3.9 L (6.3-8.2) g/dL Albumin 1.9 L (3.5-5.0) g/dL Prealbumin 10.5 L (18.0-42.0) mg/dL 06/22/24 06/22/24 Range/Units 16:22 20:27 RBC (3.80-5.40) m/uL Hgb (11.4-16.0) gm/dL Hct (34.0-46.0) % RDW (11.5-15.5) % Plt Count (150-450) k/uL Lymphocytes # (1.0-4.8) k/uL Retic Count (0.5-2.0) % Sodium (137-145) mmol/L Chloride (98-107) mmol/L Carbon Dioxide (22-30) mmol/L Glucose (74-99) mg/dL POC Glucose (mg/dL) 162 H 181 H (70-110) mg/dL Calcium (8.4-10.2) mg/dL Delta Bilirubin (0.0-0.2) mg/dL Total Protein (6.3-8.2) g/dL Albumin (3.5-5.0) g/dL Prealbumin (18.0-42.0) mg/dL Assessment and Plan Assessment: Right upper extremity hematoma, patient was on IV heparin and aspirin, when she was noted to develop a large right upper extremity hematoma. Right upper extremity ultrasound estimating a 8.1 x 3.2 x 6.4 cm area of fluid with echoes within. CT scan of the right upper extremity shows intact vasculature and there is no evidence of any arterial bleed. The hematoma is stable and the patient is currently on IV heparin and hemoglobin stable at 8.3, unable to obtain a follow- up hemoglobin from today. Acute blood loss anemia, posttransfusion with a total of 2 units of packed RBC and the hemoglobin currently is at 8.3 Hypotension and shock, hypovolemic/hemorrhagic, recovered and the patient is currently normotensive Acute COVID infection, chest x-ray does not show any focal traits or evidence of COVID-pneumonia. On room air oxygen Acute leukocytosis Elevated troponins, worked up for non-ST elevation MO, and was previously on heparin infusion. Echocardiogram estimating a left ventricular ejection fraction of 65 to 70%, aortic sclerosis and mild aortic stenosis, severe mitral annular calcification with mild mitral regurgitation. Frequent falls Failure to thrive History of advanced dementia, takes Namenda outpatient basis History of hyperlipidemia History of hypertension History of diabetes mellitus History of hypothyroidism History of CAD History PAD History of GI bleed, last EGD/colonoscopy October, showing erosive esophagitis, gastritis, segment of bleeding from stomach, hiatal hernia. Colonoscopy with findings of external and internal hemorrhoids, diverticulosis, and removal of 2 polyps. History of breast cancer with previous lumpectomy Hypocalcemia, awaiting ionized calcium and the patient was given IV calcium supplements Plan: Hemoglobin is stable No evidence of any ongoing bleeding Patient is on room air oxygen Hemodynamically stable and the patient is on no pressors IV heparin has been discontinued, avoid all form of anticoagulants Monitor hemoglobin and platelet count Patient was transferred out of the intensive care unit and the patient is currently on the medical floor DNR/DNI CODE STATUS Failure to thrive Poor prognosis based on the above
--- NOTE | 2024-06-23 13:05 | P.PN ---
Subjective Progress Note Date: 06/23/24 Progress note Date of service 06/23/[address] Olivia. Patient seen [id number] discussed with her on the bedside as well. Patient is conscious alert recognizing her and recognizes my name. 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 Vital sign: Temperature 98.2 F oral Regular heart rate 60 bpm and respiratory rate 15/min, blood pressure has been ranging 158/72 and 164/73 with the oxygen saturation 97-99. Patient when stimulated verbally she able to wake up and speak and she wants to sleep, she did not care if she ate or not lunch. Patient had all the blood in the nose from the time that she had bleeding she has underlying thrombocytopenia. However currently controlled no active bleeding at this time. Head was normocephalic atraumatic pupil is equal reactive oropharynx she had used dentures currently she had the dentures out. Neck was supple no JVD no thyromegaly no lymphadenopathy Chest normal breath sound bilaterally no wheezes no rhonchi's Heart regular sinus rhythm no chest pain Abdomen soft positive bowel sound no organ enlargement Extremities she had the hematoma of the right arm with the swelling of the right arm which is extensive and arterial bleed. Psychiatry she has underlying major depressive disorder and anxiety. Currently not in any medication no agitation Neurologically no evidence of lateralizing sign and moving 4 extremities but she could not stand up or walk. And rehab on the progress. Assessment: And plan 1. Patient admitted with altered mental status and sleeping status and thought to be metabolic encephalopathy. 2. She had very bad veins to obtain laboratories however they are trying today. 3. Diabetes mellitus is fairly well-controlled and POC today 114 4. Urine through Barger catheter gradual improvement 5. Patient transfused calcium lab pending 6. Metabolic acidosis and we will have the results of the blood test for improvement 7. Multiple other diagnoses has been dictated on my previous note. Discussed. Planning with her Mr. Howie Collazo with the [facility] when the bed is available Unfortunately we do not have currently bed available and will have to wait for next week meanwhile we have rehabilitation to be started to see how much patient can handle in the rehab. Will follow tomorrow Objective - Vital Signs Vital signs: Vital Signs Temp 98.2 F 06/23/24 08:59 Pulse 60 06/23/24 12:00 Resp 14 06/23/24 12:00 BP 164/73 06/23/24 08:59 Pulse Ox 99 06/23/24 12:00 FiO2 Intake & Output 06/22/24 06/23/24 06/23/24 18:59 06:59 18:59 Intake Total 840 240 Output Total 325 650 300 Balance 515 -650 -60 Weight 63 kg Intake: Oral 840 240 Output: Urine 325 650 300 Other: Voiding Method Indwelling Catheter Indwelling Catheter Indwelling Catheter - Labs CBC & Chem 7: 06/22/24 11:52 06/22/24 11:57 Labs: Abnormal Lab Results - Last 24 Hours (Table) 06/22/24 06/22/24 06/22/24 Range/Units 11:57 16:22 20:27 POC Glucose (mg/dL) 162 H 181 H (70-110) mg/dL Prealbumin 10.5 L (18.0-42.0) mg/dL 06/23/24 Range/Units 11:30 POC Glucose (mg/dL) 114 H (70-110) mg/dL Prealbumin (18.0-42.0) mg/dL
[2024-06-23 16:15] LABS: Anisocytosis Slight; HGB 8.1 gm/dL (11.4-16.0); Hypochromasia Slight; MCH 32.7 pg (25.0-35.0); MCHC 33.7 g/dL (31.0-37.0); MCV 97.2 fL (80.0-100.0); Macrocytosis Slight; Mean Platelet Volume 9.3; Poikilocytosis Slight; RBC 2.46 m/uL (3.80-5.40); RDW 18.5 % (11.5-15.5); WBC 5.2 k/uL (3.8-10.6)
[2024-06-23 16:31] LABS: Glucose,Whole Blood 169 mg/dL (70-110)
[2024-06-23 16:36] LABS: African American GFR (CKD) >90 (>60 ml/min/1.73 sqM); Anion Gap 2 mmol/L; Blood Urea Nitrogen 7 mg/dL (7-17); Carbon Dioxide 22 mmol/L (22-30); Chloride 109 mmol/L (98-107); Glucose 144 mg/dL (74-99); Non-African American GFR(CKD) 85 (>60 ml/min/1.73 sqM); Potassium 3.3 mmol/L (3.5-5.1); Sodium 133 mmol/L (137-145)
[2024-06-23 16:40] LABS: Calcium 6.4 mg/dL (8.4-10.2); Platelet Count 68 k/uL (150-450)
[2024-06-23] MEDS: POTASSIUM CHLORIDE ER 20 MEQ TAB.ER PO ONE (16:56)
[2024-06-23] MEDS: CALCIUM GLUCONATE IN NACL 1 GM in SALINE 1 100ML.BAG IVPB ONE (17:24)
[2024-06-23 19:46] LABS: Glucose,Whole Blood 193 mg/dL (70-110)
--- NOTE | 2024-06-24 05:22 | P.PN ---
Subjective Progress Note Date: 06/22/24 Principal diagnosis: Reason for follow-up is COVID-19 infection Patient is a 89-year-old female with a past medical history significant for type 2 diabetes mellitus hide for your dementia has been brought to the hospital for evaluation of weakness patient did have a low-grade fever 100 F tested positive for COVID-19 however chest x-ray did not show acute infiltrate. On today's evaluation that is 06/22/2024, the patient continues to be afebrile, the patient is on room air and breathing comfortably, the Pt slightly more awake today denies any chest occasional cough has been reported Patient white count is 6.3 Objective - Vital Signs Vital signs: Vital Signs Temp 98.1 F 06/22/24 11:15 Pulse 67 06/22/24 11:15 Resp 14 06/22/24 11:15 BP 129/68 06/22/24 11:15 Pulse Ox 93 L 06/22/24 11:15 FiO2 Intake & Output 06/21/24 06/22/24 06/22/24 18:59 06:59 18:59 Intake Total 360 Output Total 250 150 Balance -250 -150 360 Weight 62 kg Intake: Oral 360 Output: Urine 250 150 Other: Voiding Method Indwelling Catheter Indwelling Catheter Indwelling Catheter - Exam GENERAL DESCRIPTION: An elderly female lying in bed in no distress RESPIRATORY SYSTEM: Unlabored breathing , decreased breath sounds at bases HEART: S1 S2 regular rate and rhythm , ABDOMEN: Soft , no tenderness EXTREMITIES: Lower extremity with some laceration which are currently dressed no drainage - Labs CBC & Chem 7: 06/23/24 15:59 06/23/24 15:59 Labs: Abnormal Lab Results - Last 24 Hours (Table) 06/21/24 06/21/24 06/22/24 Range/Units 16:27 20:18 11:22 RBC (3.80-5.40) m/uL Hgb (11.4-16.0) gm/dL Hct (34.0-46.0) % RDW (11.5-15.5) % Plt Count (150-450) k/uL Lymphocytes # (1.0-4.8) k/uL Retic Count (0.5-2.0) % Sodium (137-145) mmol/L Chloride (98-107) mmol/L Carbon Dioxide (22-30) mmol/L Glucose (74-99) mg/dL POC Glucose (mg/dL) 156 H 132 H 136 H (70-110) mg/dL Calcium (8.4-10.2) mg/dL Delta Bilirubin (0.0-0.2) mg/dL Total Protein (6.3-8.2) g/dL Albumin (3.5-5.0) g/dL 06/22/24 06/22/24 Range/Units 11:52 11:57 RBC 2.62 L (3.80-5.40) m/uL Hgb 8.3 L (11.4-16.0) gm/dL Hct 25.7 L (34.0-46.0) % RDW 18.1 H (11.5-15.5) % Plt Count 63 L (150-450) k/uL Lymphocytes # 0.6 L (1.0-4.8) k/uL Retic Count 3.7 H (0.5-2.0) % Sodium 134 L (137-145) mmol/L Chloride 116 H (98-107) mmol/L Carbon Dioxide 12 L (22-30) mmol/L Glucose 116 H (74-99) mg/dL POC Glucose (mg/dL) (70-110) mg/dL Calcium 6.4 L* (8.4-10.2) mg/dL Delta Bilirubin 0.4 H (0.0-0.2) mg/dL Total Protein 3.9 L (6.3-8.2) g/dL Albumin 1.9 L (3.5-5.0) g/dL Microbiology - Last 24 Hours (Table) 06/16/24 22:03 Blood Culture - Preliminary Blood Assessment and Plan (1) Leukocytosis Current Visit: Yes Status: Acute Code(s): D72.829 - ELEVATED WHITE BLOOD CELL COUNT, UNSPECIFIED SNOMED Code(s): 575363740 (2) COVID-19 Current Visit: Yes Status: Acute Code(s): U07.1 - COVID-19 SNOMED Code(s): 748905918 Plan: 1patient presented to hospital with generalized weakness in this patient who also recently have a fall and tested positive for COVID-19 could be responsible for her symptoms however the patient is currently not hypoxic and no evidence of any acute infiltrate on chest x-ray treatment will be mostly supportive and currently do not qualify for remdesivir or steroids 2-patient also have mildly elevated white count on admission possibly reactive as no obvious focus she did have some resolution lower extremity with no cellulitis urine was negative and no evidence of any abdominal tenderness 3-patient white count has normalized, patient did have a normal procalcitonin of 0.11, blood culture has been negative so far 4-patient currently being treated with with supportive treatment of zinc ascorbic acid and to discontinue Rocephin if the blood culture remains to be negative Dictation was produced using [employer] dictation software. please excuse any grammatical, word or spelling errors. Time with Patient: Less than 30
--- NOTE | 2024-06-24 05:23 | P.PN ---
Subjective Progress Note Date: 06/23/24 Principal diagnosis: Reason for follow-up is COVID-19 infection Patient is a 89-year-old female with a past medical history significant for type 2 diabetes mellitus hide for your dementia has been brought to the hospital for evaluation of weakness patient did have a low-grade fever 100 F tested positive for COVID-19 however chest x-ray did not show acute infiltrate. On today's evaluation that is 06/23/2024, patient did not have any fever and denies any chills, patient is breathing comfortably on room air, patient with no chest pain did have mild cough patient did not have any abdominal pain nausea vomiting or any loose stools. Patient white count is 5.2, creatinine 0.53 Objective - Vital Signs Vital signs: Vital Signs Temp 98.7 F 06/23/24 14:42 Pulse 80 06/23/24 14:42 Resp 17 06/23/24 14:42 BP 122/60 06/23/24 14:42 Pulse Ox 98 06/23/24 14:42 FiO2 Intake & Output 06/22/24 06/23/24 06/23/24 18:59 06:59 18:59 Intake Total 840 240 Output Total 325 650 300 Balance 515 -650 -60 Weight 63 kg Intake: Oral 840 240 Output: Urine 325 650 300 Other: Voiding Method Indwelling Catheter Indwelling Catheter Indwelling Catheter - Exam GENERAL DESCRIPTION: An elderly female lying in bed in no distress RESPIRATORY SYSTEM: Unlabored breathing , decreased breath sounds at bases HEART: S1 S2 regular rate and rhythm , ABDOMEN: Soft , no tenderness EXTREMITIES: Lower extremity with some laceration which are currently dressed no drainage - Labs CBC & Chem 7: 06/23/24 15:59 06/23/24 15:59 Labs: Abnormal Lab Results - Last 24 Hours (Table) 06/22/24 06/22/24 06/22/24 Range/Units 11:57 16:22 20:27 POC Glucose (mg/dL) 162 H 181 H (70-110) mg/dL Prealbumin 10.5 L (18.0-42.0) mg/dL 06/23/24 Range/Units 11:30 POC Glucose (mg/dL) 114 H (70-110) mg/dL Prealbumin (18.0-42.0) mg/dL Microbiology - Last 24 Hours (Table) 12/14/24 22:03 Blood Culture - Final Blood Assessment and Plan (1) Leukocytosis Current Visit: Yes Status: Acute Code(s): D72.829 - ELEVATED WHITE BLOOD CELL COUNT, UNSPECIFIED SNOMED Code(s): 426796533 (2) COVID-19 Current Visit: Yes Status: Acute Code(s): U07.1 - COVID-19 SNOMED Code(s): 717183129 Plan: 1patient presented to hospital with generalized weakness in this patient who also recently have a fall and tested positive for COVID-19 could be responsible for her symptoms however the patient is currently not hypoxic and no evidence of any acute infiltrate on chest x-ray treatment will be mostly supportive and currently do not qualify for remdesivir or steroids 2-patient also have mildly elevated white count on admission possibly reactive as no obvious focus she did have some resolution lower extremity with no cell ulitis urine was negative and no evidence of any abdominal tenderness 3-patient white count has normalized, patient did have a normal procalcitonin of 0.11, blood culture has been negative so far 4-patient to continue with supportive treatment of zinc ascorbic acid and to discontinue Rocephin as no evidence of any bacterial infection and cultures are negative Dictation was produced using [employer] dictation software. please excuse any grammatical, word or spelling errors. Time with Patient: Less than 30
[2024-06-24 05:55] LABS: Glucose,Whole Blood 100 mg/dL (70-110)
[2024-06-24] MEDS: POTASSIUM BICARBONATE/CIT AC 20 MEQ TABLET.EFF PO SCH (12:08)
[2024-06-24] MEDS: FLUoxetine HCL 20 MG CAP PO SCH (12:08)
[2024-06-24] MEDS: SODIUM CHLORIDE 0.9% 1,000 ML IV SCH (12:10)
--- NOTE | 2024-06-24 12:24 | P.PN ---
Subjective Progress Note Date: 06/24/24 Progress note Date of service 06/24/[address] Olivia Patient seen today [id number], at bedside Mr. Howie Collazo discussed with him the current management. Discussed also with the nurse Anju MARTINEZ. Laboratory result is pending. Apparently patient accumulated fluid in her torso, will decrease IV fluid to 50 cc an hour with the changes to be 0.9 normal saline : Dioxide was yesterday 22 which is normal range we will see if there is blood able to be drawn today. Potassium was 3.3 low and she had supplementation protocol. And will be today starting her on K-Lyte liquid or tablet if she can take in orally. Dr. Rodriguez infectious disease did evaluate her yesterday and discontinue the antibiotic Rocephin with no evidence of infection at this time and was given to her for prophylaxis as well as for questionable UTI. With the underlying not responding medically with the altered mental status and metabolic encephalopathy. Patient at this time comfort care she had history of bipolar and has been treated in the past by psychiatrist in [facility] with Methylphenidate, However when she came was confusion disorientation weakness her psychiatric medication has been discontinued to start patient to wake up, discussed with her and we will be consulting the psychiatry Dr. Field psychiatrist Tuesday tomorrow. Will be starting her on fluoxetine liquid to see if that will help to wake her up as she is sleeping continuously. And this psychiatry to help us for the medication if she is bipolar and the need misfiled for any date versus Prozac, I did start Prozac liquid which is fluoxetine temporarily until seen by the psychiatry, patient bedridden unable to stand up or ambulate and she is awake with verbal stimuli but she did not have good sleep yesterday and assumed that she is tired. On the physical examination: Conscious with deep stimulation, few words only, at bedside. She had hematoma and multiple wound in the upper extremities on the right and th e left as well as lower extremities will ask wound care again to look at her and to see if anything is needed. She had dentures and she uses it when she eat by nursing staff and she also a fever lunch at bedside and unable to eat she had severe Luby albumin with the calorie protein deficiency and hypoalbuminemia as well her calcium has been transfused 1 g once a day for 2 days was calcium gluconate and with the calculation it was due to also the hypoalbuminemia. Neck was supple no JVD no thyromegaly no lymphadenopathy The lung is normal breath sound with the saturation of the oxygen stable Vital sign stable and she had underlying coronary artery disease with three- vessel disease and on admission she had elevated troponin with non-STEMI [place] and cardiology believed that could be from the COVID however she had COVID about 10 days prior to the admission. And she was treated with antiviral treatment and the antibiotic and steroid The abdomen is soft positive bowel sound loose bowel and incontinent. She has Barger catheter with the neurogenic bladder and incontinent. Extremities multiple ecchymosis and skin darkness with the underlying thrombocytopenia. Psychiatry: History of major depressive disorder, and her told me that she had bipolar and we will be consulting psychiatry Neurologically she moving 4 extremities, no lateralizing sign, remote CT scan was indicating on 2002 lacunar infarction which did not show on this recent CT scan and the neurology did see her in this admission and he indicating there is no need for MRI or no need for EEG. With no clear diagnosis of dementia. Assessment: Multiple medical problem as has been dictated in my previous progress note With the altered mental status, metabolic encephalopathy considered Dementia progressive with the underlying loss of midline function incontinent of urine with retention and possible neurologic bladder and loose bowel with stool incontinent. 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 Perkins vascular surgeon, carotid artery disease Renal function stable. Severe hypoproteinemia, albuminemia with low prealbumin with the protein calorie deficiency due to patient not eating or drinking enough Plan: 1. Will continue supportive therapy 2. Decrease the IV fluid to 50 mL/h and change IV to 0.9 normal saline 3. With hypokalemia. And underlying metabolic acidosis has been corrected we will start her on K-Lyte's 20 mill equivalent liquid and reassess 4. Wait for lab result today if was able to be drawn. 5. Waiting for bed for the half-way 6. If the telemetry bed on the third floor needed we may have to transfer the patient to the fourth floor [place]*to be continue monitored. Objective - Vital Signs Vital signs: Vital Signs Temp 97.9 F 06/24/24 08:00 Pulse 79 06/24/24 08:00 Resp 17 06/24/24 08:00 BP 128/74 06/24/24 08:00 Pulse Ox 96 06/24/24 08:00 FiO2 Intake & Output 06/23/24 06/24/24 06/24/24 18:59 06:59 18:59 Intake Total 720 100 Output Total 400 200 Balance 320 -100 Weight 64.5 kg Intake: Oral 720 100 Output: Urine 400 200 Other: Voiding Method Indwelling Catheter Indwelling Catheter Indwelling Catheter - Labs CBC & Chem 7: 06/23/24 15:59 06/23/24 15:59 Labs: Abnormal Lab Results - Last 24 Hours (Table) 06/23/24 06/23/24 06/23/24 Range/Units 15:59 15:59 16:30 RBC 2.46 L (3.80-5.40) m/uL Hgb 8.1 L (11.4-16.0) gm/dL Hct 24.0 L (34.0-46.0) % RDW 18.5 H (11.5-15.5) % Plt Count 68 L (150-450) k/uL Sodium 133 L (137-145) mmol/L Potassium 3.3 L (3.5-5.1) mmol/L Chloride 109 H (98-107) mmol/L Glucose 144 H (74-99) mg/dL POC Glucose (mg/dL) 169 H (70-110) mg/dL Calcium 6.4 L* (8.4-10.2) mg/dL 06/23/24 Range/Units 19:43 RBC (3.80-5.40) m/uL Hgb (11.4-16.0) gm/dL Hct (34.0-46.0) % RDW (11.5-15.5) % Plt Count (150-450) k/uL Sodium (137-145) mmol/L Potassium (3.5-5.1) mmol/L Chloride (98-107) mmol/L Glucose (74-99) mg/dL POC Glucose (mg/dL) 193 H (70-110) mg/dL Calcium (8.4-10.2) mg/dL Microbiology - Last 24 Hours (Table) 06/16/24 22:03 Blood Culture - Final Blood
[2024-06-24 14:11] LABS: Anisocytosis Slight; HCT 21.7 % (34.0-46.0); HGB 7.2 gm/dL (11.4-16.0); Hypochromasia Slight; MCH 32.7 pg (25.0-35.0); MCHC 33.2 g/dL (31.0-37.0); MCV 98.6 fL (80.0-100.0); Macrocytosis Slight; Mean Platelet Volume 9.8; Platelet Count 61 k/uL (150-450); Poikilocytosis Slight; WBC 3.8 k/uL (3.8-10.6)
[2024-06-24 14:23] LABS: African American GFR (CKD) >90 (>60 ml/min/1.73 sqM); Anion Gap -1 mmol/L; Blood Urea Nitrogen 8 mg/dL (7-17); Carbon Dioxide 26 mmol/L (22-30); Chloride 107 mmol/L (98-107); Glucose 146 mg/dL (74-99); Non-African American GFR(CKD) 81 (>60 ml/min/1.73 sqM); Potassium 4.2 mmol/L (3.5-5.1); Sodium 132 mmol/L (137-145)
[2024-06-24 14:29] LABS: Calcium 6.4 mg/dL (8.4-10.2)
[2024-06-24] MEDS: SODIUM CHLORIDE 0.45% 1,000 ML IV SCH (16:12)
[2024-06-24 17:08] LABS: Glucose,Whole Blood 121 mg/dL (70-110)
[2024-06-24 17:09] LABS: Glucose,Whole Blood 142 mg/dL (70-110)
[2024-06-24 19:50] LABS: Glucose,Whole Blood 167 mg/dL (70-110)
--- NOTE | 2024-06-25 06:00 | P.PN ---
Subjective Progress Note Date: 06/24/24 Principal diagnosis: Reason for follow-up is COVID-19 infection Patient is a 89-year-old female with a past medical history significant for type 2 diabetes mellitus hide for your dementia has been brought to the hospital for evaluation of weakness patient did have a low-grade fever 100 F tested positive for COVID-19 however chest x-ray did not show acute infiltrate. On today's evaluation that is 06/24/2024, Patient is afebrile patient is currently on room air and denies having any shortness of breath, the patient denies any chest pain or cough, the patient denies any nausea vomiting and no diarrhea has been reported. has been concerned about significant swelling to the upper extremity. Patient white count is 3.8 creatinine 0.61 blood culture have been negative Objective - Vital Signs Vital signs: Vital Signs Temp 97.6 F 06/24/24 19:35 Pulse 78 06/24/24 19:35 Resp 18 06/24/24 19:35 BP 147/76 06/24/24 19:35 Pulse Ox 99 06/24/24 19:35 FiO2 Intake & Output 06/24/24 06/24/24 06/25/24 06:59 18:59 06:59 Intake Total 100 Output Total 200 225 Balance -100 -225 Weight 64.5 kg Intake: Oral 100 Output: Urine 200 225 Other: Voiding Method Indwelling Catheter Indwelling Catheter - Exam GENERAL DESCRIPTION: An elderly female lying in bed in no distress RESPIRATORY SYSTEM: Unlabored breathing , decreased breath sounds at bases HEART: S1 S2 regular rate and rhythm , ABDOMEN: Soft , no tenderness EXTREMITIES: Lower extremity with some laceration which are currently dressed no drainage - Labs CBC & Chem 7: 06/24/24 13:56 06/24/24 13:56 Labs: Abnormal Lab Results - Last 24 Hours (Table) 06/24/24 06/24/24 06/24/24 Range/Units 11:34 13:56 13:56 RBC 2.20 L (3.80-5.40) m/uL Hgb 7.2 L (11.4-16.0) gm/dL Hct 21.7 L (34.0-46.0) % RDW 19.0 H (11.5-15.5) % Plt Count 61 L (150-450) k/uL Sodium 132 L (137-145) mmol/L Glucose 146 H (74-99) mg/dL POC Glucose (mg/dL) 121 H (70-110) mg/dL Calcium 6.4 L* (8.4-10.2) mg/dL 06/24/24 06/24/24 Range/Units 16:57 19:48 RBC (3.80-5.40) m/uL Hgb (11.4-16.0) gm/dL Hct (34.0-46.0) % RDW (11.5-15.5) % Plt Count (150-450) k/uL Sodium (137-145) mmol/L Glucose (74-99) mg/dL POC Glucose (mg/dL) 142 H 167 H (70-110) mg/dL Calcium (8.4-10.2) mg/dL Assessment and Plan (1) Leukocytosis Current Visit: Yes Status: Acute Code(s): D72.829 - ELEVATED WHITE BLOOD CELL COUNT, UNSPECIFIED SNOMED Code(s): 606670367 (2) COVID-19 Current Visit: Yes Status: Acute Code(s): U07.1 - COVID-19 SNOMED Code(s): 189051431 Plan: 1patient presented to hospital with generalized weakness in this patient who also recently have a fall and tested positive for COVID-19 could be responsible for her symptoms however the patient is currently not hypoxic and no evidence of any acute infiltrate on chest x-ray treatment will be mostly supportive and do not qualify for remdesivir 2-patient also have mildly elevated white count on admission possibly reactive as no obvious focus she did have some resolution lower extremity with no cellulitis urine was negative and no evidence of any abdominal tenderness 3-patient white count has normalized, patient did have a normal procalcitonin of 0.11, blood culture has been negative so far 4-patient to continue with supportive treatment of zinc ascorbic acid and monitor closely off antibiotics Dictation was produced using [employer] dictation software. please excuse any grammatical, word or spelling errors. Time with Patient: Less than 30
[2024-06-25 06:03] LABS: Glucose,Whole Blood 104 mg/dL (70-110)
[2024-06-25 08:55] LABS: Anisocytosis Slight; HCT 22.4 % (34.0-46.0); HGB 7.4 gm/dL (11.4-16.0); Hypochromasia Slight; MCH 32.6 pg (25.0-35.0); MCV 98.9 fL (80.0-100.0); Macrocytosis Slight; Mean Platelet Volume 9.7; Poikilocytosis Slight; RBC 2.27 m/uL (3.80-5.40); RDW 18.9 % (11.5-15.5); WBC 3.8 k/uL (3.8-10.6)
[2024-06-25 08:57] LABS: Platelet Count 61 k/uL (150-450)
[2024-06-25 09:06] LABS: African American GFR (CKD) >90 (>60 ml/min/1.73 sqM); Anion Gap 0 mmol/L; Blood Urea Nitrogen 8 mg/dL (7-17); Carbon Dioxide 28 mmol/L (22-30); Chloride 107 mmol/L (98-107); Glucose 89 mg/dL (74-99); Non-African American GFR(CKD) 83 (>60 ml/min/1.73 sqM); Potassium 3.9 mmol/L (3.5-5.1); Sodium 135 mmol/L (137-145)
[2024-06-25 09:16] LABS: Calcium 6.4 mg/dL (8.4-10.2)
[2024-06-25 11:30] LABS: Glucose,Whole Blood 150 mg/dL (70-110)
--- NOTE | 2024-06-25 13:09 | P.PN ---
Subjective Progress Note Date: 06/25/24 Progress note Date of service 06/25/[address] Olivia Patient seen and evaluated [id number] Today she is awake alert and able to communicate verbally. Vital sign temperature 97.8 F orally Heart rate 78 bpm regular sinus Respiratory rate 17/min nonlabored. Blood pressure 143/49 with a mean blood pressure 80. Her oxygen on room air saturation 99%. Laboratory: WBC 3.8, hemoglobin 7.4 with the hematocrit 22.4 patient with hypochromasia secondary to bleeding, will check the iron today and if she had low iron we will transfuse 1 unit of iron supplementation before patient to be discharged or transferred. Her sodium is improving 135 with decrease IV fluid as well as she was started on Prozac which probably make her more alert. I did discuss it with Dr. Field psychiatrist yesterday and probably will be seeing her today to help us with the has her bipolar disorder. And we did discontinue methylphenidate, and his opinion in regard of continued discontinuation or restart medication. : Dioxide stable 28 and potassium 3.9 stable her glucose 89 this morning and POC glucose 10 4-1 50. As mentioned the calcium still in the low side with the hypoalbuminemia which calculation gay she was fine which was done by Dr. Palma when she was in the ICU. However patient received 1 g of calcium gluconate x 2 over 2 days. Patient conscious alert today she is pale and anemic, she had the dressing on the right arm and seen by vascular disease. No further bleeding she had several ecchymosis and skin tear. She used dentures when she eat, HEENT no changes Neck was supple no JVD no thyromegaly no lymphadenopathy Chest is clear with normal breath sound. With the probably she had mild volume overload with the mild hyponatremia and with the changing the IV down decreasing the rate her sodium is improving Heart was compensated and with a history of hypertension with hypertensive heart disease with the episodes of hypotension and coronary artery disease three- vessel. Abdomen is soft positive bowel sound no tenderness she is incontinent of stool and the urine she had the Barger catheter Extremities positive pulses with a history of peripheral vascular disease Psychiatry bipolar disorder, major depressive disorder Neurologically stable. Assessment: Plan. Multiple medical problem has been dictated in detailed on 06/24/2024. 1. We are progressively improving 2. Patient will be seeing Dr. Field psychiatry hopefully today and see his opinion for her bipolar and depressive disorder 3. We are waiting also for [facility] and [facility] 4. Waiting for the result of iron studies and probable transfusion of 1 unit of iron if it is low Objective - Vital Signs Vital signs: Vital Signs Temp 97.8 F 06/25/24 08:00 Pulse 78 06/25/24 08:00 Resp 17 06/25/24 08:00 BP 143/49 06/25/24 08:00 Pulse Ox 99 06/25/24 08:00 FiO2 Intake & Output 06/24/24 06/25/24 06/25/24 18:59 06:59 18:59 Intake Total 425 Output Total 225 300 Balance -225 125 Intake: Intake, IV Titration 425 Amount Sodium Chloride 0.9% 1, 425 000 ml @ 50 mls/hr IV . Q20H REPLACED BY [facility] Rx#:[id number] Output: Urine 225 300 Other: Voiding Method Indwelling Catheter Indwelling Catheter Indwelling Catheter - Labs CBC & Chem 7: 06/25/24 07:35 06/25/24 07:35 Labs: Abnormal Lab Results - Last 24 Hours (Table) 06/24/24 06/24/24 06/24/24 Range/Units 11:34 13:56 13:56 RBC 2.20 L (3.80-5.40) m/uL Hgb 7.2 L (11.4-16.0) gm/dL Hct 21.7 L (34.0-46.0) % RDW 19.0 H (11.5-15.5) % Plt Count 61 L (150-450) k/uL Sodium 132 L (137-145) mmol/L Glucose 146 H (74-99) mg/dL POC Glucose (mg/dL) 121 H (70-110) mg/dL Calcium 6.4 L* (8.4-10.2) mg/dL 06/24/24 06/24/24 06/25/24 Range/Units 16:57 19:48 07:35 RBC 2.27 L (3.80-5.40) m/uL Hgb 7.4 L (11.4-16.0) gm/dL Hct 22.4 L (34.0-46.0) % RDW 18.9 H (11.5-15.5) % Plt Count 61 L (150-450) k/uL Sodium (137-145) mmol/L Glucose (74-99) mg/dL POC Glucose (mg/dL) 142 H 167 H (70-110) mg/dL Calcium (8.4-10.2) mg/dL 06/25/24 06/25/24 Range/Units 07:35 11:29 RBC (3.80-5.40) m/uL Hgb (11.4-16.0) gm/dL Hct (34.0-46.0) % RDW (11.5-15.5) % Plt Count (150-450) k/uL Sodium 135 L (137-145) mmol/L Glucose (74-99) mg/dL POC Glucose (mg/dL) 150 H (70-110) mg/dL Calcium 6.4 L* (8.4-10.2) mg/dL
[2024-06-25 13:20] VITALS: BMI 24.4
[2024-06-25] MEDS ORDERED: QUEtiapine 25 MG TAB PO PRN (14:08)
--- NOTE | 2024-06-25 14:15 | P.CN ---
Psychiatric Consult - . 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 She apparently has a history of dementia, was endorsing weakness. She had a full medical workup, exhibiting signs of confusion. Neurology on board, did not recommend EEG or MRI. Patient was seen today by psychiatrist at the bedside. Nurse claims that patient has been fairly cooperative today, no significant issues. Patient was fairly cooperative, pleasant with advertising writer, he knew her name, did not know her age believe that she was in her 60s. She knew that she was in a hospital in [place]. She believes that today's date was "26 June". She did not know why she is in the hospital. She was a rather poor historian. Claims that she is being well taken care of in the hospital, denies any issues. Claims that her mood is "happy" denying any depression or anxiety. States that her helps with her care at home and paying the bills and also cleaning laundry etc. Claims that she is sleeping on and off, appetite is fair.. At this time patient denies any suicidal or homical ideations, intent or plan. Patient denies any auditory, visual hallucinations and denies any paranoia or delusions. Patients admits to using no recreational drugs or substances PAST PSYCHIATRIC HISTORY: Patient claims that she has no significant past psyc hiatric history, it was noted that she has a history of dementia. Patient denies being on any psychiatric medications. Patient denies any previous psychiatric hospitalizations. Patient denies any psychiatric outpatient follow- up. Patient denies any history of suicide attempts in the past. Past Medical History: Cancer, Heart Failure, Diabetes Mellitus, GERD/Reflux, Hyp erlipidemia, Hypertension, Memory Impairment, Rheumatoid Arthritis (RA), Thyroid Disorder Additional Past Medical History / Comment(s): States age related memory impairment. 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 Hx right breast cancer had a lumpectomy and radiaiton tx,, aortic aneurysm(sx done). per [facility] "leaky heart valve", bowel obstruction with no sx, just colonoscopy and egd done. History of Any Multi-Drug Resistant Organisms: None Reported Past Surgical History: Appendectomy, Back Surgery, Breast Surgery, Heart Catheterization, Tonsillectomy, Tubal Ligation Additional Past Surgical History / Comment(s): Surgery for arortic aneurysm, surgery on toes of bilateral feet, ablation done on back X2, had uvula removed.lt carpal tunnel release, beverly cataracts, beverly carotid endarterectomy, partial rt mastectomy. colonoscopy/egd/esophgeal dilations, laminectomy/past pain clinic procedures, bunionectomy beverly feet. Past Anesthesia/Blood Transfusion Reactions: No Reported Reaction Past Psychological History: No Psychological Hx Reported, Anxiety, Bipolar, Depression Smoking Status: Former smoker Past Alcohol Use History: None Reported Past Drug Use History: None Reported ALLERGIES: as per EMR. CHEMICAL DEPENDENCY HISTORY: as per HPI. FAMILY PSYCHIATRIC/SUBSTANCE USE HISTORY: Claims that her brother had some form of mental illness while he was in the SOCIAL HISTORY: Patient was born and raised in [facility]. 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 Denies any legal history. States that she has 2 sons, she lives in a house with her . MENTAL STATUS EXAM: General Appearance: Patient appears to be stated age is alert, pleasant, and attempts to be cooperative. Patient appears to have fair hygiene and grooming wearing hospital gown with fair eye contact. Behavior: Patient is calmly lying in bed without any agitated behavior. Fairly pleasant Speech: Patient's speech is fluent and nonpressured. Mood/Affect: Patient reports their mood is "good", affect is congruent Suicidality/Homicidality: Patient denies having any suicidal or homicidal i deation intent or plan. Perceptions: Patient denies any visual hallucinations and denies any auditory hallucinations Though content/process: There is no evidence of any delusional thought content and thought process is linear and goal-directed. Rambles at times Memory and concentration: AOX3, does not know her age, good attention span. Can name objects in the room. Cannot spell "WORLD" backwards Judgment and insight: Chronically limited IMPRESSIONS: Likely delirium, unknown etiology Dementia without behavioral disturbance PLAN: -At this time patient DOES NOT meet criteria for inpatient psychiatric admission. -Delirium precautions recommended with patient including - avoiding use of narcotics and LEGAL JOB TITLES sedatives, limit anticholinergic medications when possible, frequent re-orientation, minimize use of restraints, open window shades during the day and close them at night -Would recommend the following medication changes/additions: Melatonin 2 mg nightly for sleep, can continue Prozac as prescribed. Seroquel 12.5 mg twice daily as needed for delirium/psychosis. -survey workers supervisor to provide patient with outpatient mental health/psychiatry resources for appropriate follow up upon discharge -Communicated plan to patient's nurse -CM looking into placement at [facility]. -Psychiatry will sign off at this time -Please contact with any questions. 06/25/24 14:09
[2024-06-25 15:39] LABS: % Iron Saturation 17.75 (12.00-45.00)
[2024-06-25 16:48] LABS: Glucose,Whole Blood 147 mg/dL (70-110)
[2024-06-25] MEDS: SODIUM FERRIC GLUCONAT-SUCROSE 125 MG in SODIUM CHLORIDE 0.9% 100 ML IVPB ONE (18:09)
[2024-06-25 19:59] LABS: Glucose,Whole Blood 179 mg/dL (70-110)
[2024-06-25] MEDS: MELATONIN 1 MG TAB PO SCH (22:39)
[2024-06-26 06:09] LABS: Glucose,Whole Blood 104 mg/dL (70-110)
[2024-06-26 08:37] VITALS: RESP 17
--- NOTE | 2024-06-26 09:12 | P.PN ---
Subjective Progress Note Date: 06/25/24 Principal diagnosis: Reason for follow-up is COVID-19 infection Patient is a 89-year-old female with a past medical history significant for type 2 diabetes mellitus hide for your dementia has been brought to the hospital for evaluation of weakness patient did have a low-grade fever 100 F tested positive for COVID-19 however chest x-ray did not show acute infiltrate. On today's evaluation that is 06/25/2024, patient has been afebrile, patient is breathing comfortably and is currently on room air, patient denies having any significant cough no chest pain, patient denies nausea vomiting or diarrhea and no abdominal pain. Patient white count is 3.8, creatinine 0.57 Objective - Vital Signs Vital signs: Vital Signs Temp 97.8 F 06/25/24 08:00 Pulse 78 06/25/24 08:00 Resp 17 06/25/24 08:00 BP 143/49 06/25/24 08:00 Pulse Ox 99 06/25/24 08:00 FiO2 Intake & Output 06/24/24 06/25/24 06/25/24 18:59 06:59 18:59 Intake Total 425 Output Total 225 300 Balance -225 125 Intake: Intake, IV Titration 425 Amount Sodium Chloride 0.9% 1, 425 000 ml @ 50 mls/hr IV . Q20H [facility], [facility]1983 Rx#:[id number] Output: Urine 225 300 Other: Voiding Method Indwelling Catheter Indwelling Catheter Indwelling Catheter - Exam GENERAL DESCRIPTION: An elderly female lying in bed in no distress RESPIRATORY SYSTEM: Unlabored breathing , decreased breath sounds at bases HEART: S1 S2 regular rate and rhythm , ABDOMEN: Soft , no tenderness EXTREMITIES: Lower extremity with some laceration which are currently dressed no drainage - Labs CBC & Chem 7: 06/25/24 07:35 06/25/24 07:35 Labs: Abnormal Lab Results - Last 24 Hours (Table) 06/24/24 06/24/24 06/24/24 Range/Units 11:34 13:56 13:56 RBC 2.20 L (3.80-5.40) m/uL Hgb 7.2 L (11.4-16.0) gm/dL Hct 21.7 L (34.0-46.0) % RDW 19.0 H (11.5-15.5) % Plt Count 61 L (150-450) k/uL Sodium 132 L (137-145) mmol/L Glucose 146 H (74-99) mg/dL POC Glucose (mg/dL) 121 H (70-110) mg/dL Calcium 6.4 L* (8.4-10.2) mg/dL 06/24/24 06/24/24 06/25/24 Range/Units 16:57 19:48 07:35 RBC 2.27 L (3.80-5.40) m/uL Hgb 7.4 L (11.4-16.0) gm/dL Hct 22.4 L (34.0-46.0) % RDW 18.9 H (11.5-15.5) % Plt Count 61 L (150-450) k/uL Sodium (137-145) mmol/L Glucose (74-99) mg/dL POC Glucose (mg/dL) 142 H 167 H (70-110) mg/dL Calcium (8.4-10.2) mg/dL 06/25/24 06/25/24 Range/Units 07:35 11:29 RBC (3.80-5.40) m/uL Hgb (11.4-16.0) gm/dL Hct (34.0-46.0) % RDW (11.5-15.5) % Plt Count (150-450) k/uL Sodium 135 L (137-145) mmol/L Glucose (74-99) mg/dL POC Glucose (mg/dL) 150 H (70-110) mg/dL Calcium 6.4 L* (8.4-10.2) mg/dL Assessment and Plan (1) Leukocytosis Current Visit: Yes Status: Acute Code(s): D72.829 - ELEVATED WHITE BLOOD CELL COUNT, UNSPECIFIED SNOMED Code(s): 695147453 (2) COVID-19 Current Visit: Yes Status: Acute Code(s): U07.1 - COVID-19 SNOMED Code(s): 582820209 Plan: 1patient presented to hospital with generalized weakness in this patient who also recently have a fall and tested positive for COVID-19 could be responsible for her symptoms however the patient is currently not hypoxic and no evidence of any acute infiltrate on chest x-ray treatment will be mostly supportive and do not qualify for remdesivir 2-patient also have mildly elevated white count on admission possibly reactive as no obvious focus she did have some resolution lower extremity with no cellulitis urine was negative and no evidence of any abdominal tenderness 3-patient white count has normalized, patient did have a normal procalcitonin of 0.11, blood culture has been negative so far 4-patient currently being treated zinc ascorbic acid and will monitor closely off antibiotics Dictation was produced using [employer] dictation software. please excuse any grammatical, word or spelling errors. Time with Patient: Less than 30
[2024-06-26 11:48] LABS: Glucose,Whole Blood 120 mg/dL (70-110)
[2024-06-26 13:33] VITALS: BP 118/57; PULSE 69; TEMP 97.6
--- NOTE | 2024-06-26 14:32 | P.DS ---
Providers Date of admission: 06/17/24 20:47 Expected date of discharge: 06/26/24 (Stable) Attending physician: Issac Olivia Consults: 06/17/24 20:45 Consult Physician Urgent Consulting Provider: [facility] Consult Reason/Comments: nstemi Do you want consulting provider notified?: Yes 06/18/24 09:36 Consult Physician Urgent Consulting Provider: Gia Rodriguez Consult Reason/Comments: Patient had positive COVID, treated as outpatient still positive Do you want consulting provider notified?: Yes 06/18/24 13:50 Consult Physician Urgent Consulting Provider: Aj Ward Consult Reason/Comments: alter mental status ,confusion Do you want consulting provider notified?: Yes 06/19/24 22:55 Consult Physician Urgent Consulting Provider: Dustin Bocanegra Consult Reason/Comments: ICU management Do you want consulting provider notified?: Already Contacted 06/24/24 11:47 Consult Physician Routine Consulting Provider: Fede Field Consult Reason/Comments: Bipolar Do you want consulting provider notified?: Yes, Notify in am Primary care physician: Issac Olivia This is dictation on discharge summary Date of service 06/26/[address] Olivia. Final diagnosis: 1. Admitted with acute altered mental status 2. Failure to thrive, not eating not drinking incontinent of urine and stools unable to stand. With inability of her to take care of her 3. Abnormal troponin interpretative as non-STEMI AK. However cardiology stated that secondary to COVID 4. History of COVID which was positive on admission, patient had COVID 7 days prior to the admission and treated with antiviral and steroid and antibiotic as outpatient 5. Severe dehydration with inability/refusing to drink or eat with no bodily function. 6. Fluctuating blood pressure with the hypotension with the underlying history of hypertensive heart disease 7. Coronary artery disease with three-vessel disease and coronary atherosclerosis. 8. Acute bleeding with blood loss with the heparin use for the coronary artery disease stopped 9. Hemoglobin dropped from 11-6.2, need transfusion of 2 units packed RBCs and 1 unit of platelet and subsequently had 1 unit of iron transfusion. 10. Rheumatoid arthritis and degenerative osteoarthritis, immunocompromise Enbrel subcutaneously has been discontinued since admission and will be discontinued at this time because of the immune O compromised 11. Iron deficiency anemia due to blood loss 12. Rehabilitation, with inability to stand or walk. 13. Severe protein calorie deficiency, with severe low body albumin, low albumin, low protein with water retention, IV discontinued. 14. Diabetes mellitus type 2 covered with insulin to scale, currently controlled. 15. Recurrent fall with skin tear and bleeding. Seen by vascular surgeon in the hospital 16. Thrombocytopenia 17. Major depressive disorder, bipolar disorder, dementia early seen by psychiatry in the hospital and neurology in the hospital. 18. Wound care followed the patient during the hospital with the symptomatic treatment and grab because of easily tear of the skin and bleeding. 19. Peripheral vascular disease with the underlying aorto right [place] bypass by vascular surgeon Dr. Perkins.. 20. Hypocalcemia was transfused and calculation indicating that because of severe hypoalbuminemia appear that calcium is low. 21 metabolic encephalopathy was questioned by the neurologist. 22 urine retention with probable neurogenic bladder Barger catheter in place Consultation: 1. Dr. Jernigan cardiology 2. Neurology hospitalist 3. Dr. Palma in the ICU with the episode of extensive bleeding. 4. Infectious disease Dr. Rodriguez with the history of COVID 5. Dr. Cates psychiatrist with his recommendation on the record for his consult. 6. Dr. Barger and PA of vascular with her bleeding which was not arterial origin. #7 physical therapy, Occupational Therapy, wound care center. Admission through the emergency room with altered mental status, cognitive function impairment and underlying dementia progressive considered and hypotension and severe dehydration added to severe failure to thrive. is 89 years old and unable to handle his physically as well. Hospital course: Patient admitted to the satellite project [facility] monitor floor after stayed in the emergency room for 2 days overflow and on the floor nursing staff noticed that there is bleeding and drop of the hemoglobin and she was still not awake or alert and confused disoriented The called the vascular surgeon, transferred patient to the ICU with the consultation to the critical care pulmonary Dr. Palma as well, with the suspicious of arterial bleed versus venous bleed with the underlying heparin protocol because of the non-STEMI AK and elevated troponin which was persistent and history of coronary artery disease and three-vessel severe atherosclerotic coronary artery disease Patient subsequently in the ICU stayed overnight and heparin was stopped and seen by vascular and found that only venous blood and the did symptomatic treatment and wrapping the arm with the underlying hematoma and no forethought recommendation Patient seen by wound care center as well Seen by infectious disease no recommendation for adding any treatment however we started empirically Rocephin with the immunocompromise patient was taken Enbrel and has multiple medical problem including diabetes and hypertension and she was dehydrated at the time admitted to the hospital with the no intake and incontinent of urine and stools not eating not drinking with the failure to thrive Patient subsequently transferred back to third-floor and with the IV fluid to continue renal function which is stable and with the hypoproteinemia and hypoalbuminemia the patient extravasated fluid and gradually the albumin started to improve and encouraging the patient as she is started to wake up to eat and she is refusing to eat we discussed with the Mr. Howie Collazo the intervention and which he denied and we discussed as well comfort care and hospice. Patient has bleeding stopped transfused 2 units of packed RBCs and 1 units of platelet and her hemoglobin dropped from 11-6 with the blood transfusion picked up to 8 then redistribution and down back again to 7.4, we will check the iron studies we find that she had low iron and given 1 units of Ferrlecit iron IV 1 units 125 mg. Patient tolerated well And meanwhile as patient started to open her eyes and and able to take sips of water and food gradually increased her diet and help with the nursing clinical director meanwhile was waiting for [facility] home and rehab bed availability which was not available until today. As patient seen today evaluated discussed with her son and and patient conscious alert had no signs of respiratory distress normal breath sound and no hypoxemia and able to breeze comfortably, no chest pain and no apparent shortness of breath but she has some anxiety and depression and bipolar and patient treated as mentioned and psychiatry did see her. On the physical exam: Head was normocephalic atraumatic pupil was equal reactive oropharynx she had dentures upper and lower and she uses them only when she gets to eat Neck was supple no JVD no thyromegaly no lymphadenopathy Chest clear normal breath sound she may have some extravasation of fluid secondary to hypoalbuminemia but no respiratory distress Heart regular sinus rhythm compensated and she had echocardiogram during her hospitalization by Dr. Jernigan no further recommendation. Abdomen soft positive bowel sound and no tenderness she has incontinent of stools She has also incontinent of urine with probability of neurogenic bladder in the ICU she received her Barger catheter with the urine retention and we continue the Barger catheter trial to be removed will not be done in the hospital because of the skin tear and the hematomas and easily infection with compromised immune system. 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 Patient stable general condition for discharge and transferred to [facility] and rehab with the current medication, No need for Enbrel at this time with immunocompromise state and recent history of COVID which has been treated with antiviral and antibiotic and steroids and given the wheezing as well as vitamin C to continue for 1 months and then subsequently may be need to be discontinued. I will be following the patient in the detention. Med rec has been reviewed. Patient Condition at Discharge: Stable Plan - Discharge Summary Discharge Rx Participant: Yes New Discharge Prescriptions: New Isosorbide Mononitrate ER [Imdur] 30 mg PO DAILY tab Atorvastatin [Lipitor] 40 mg PO HS tab Melatonin 2 mg PO HS tab Zinc Sulfate [Orazinc] 220 mg PO DAILY cap Ascorbic Acid [Vitamin C] 1,000 mg PO DAILY tab Aspirin 81 mg PO DAILY tab FLUoxetine HCL [PROzac] 20 mg PO DAILY cap Acetaminophen Tab [Tylenol] 650 mg PO Q6HR PRN tab PRN Reason: Mild Pain Or Fever > 100.5 Continue predniSONE 5 mg PO DAILY Potassium Chloride [Klor-Con 10 ER] 10 meq PO DAILY Ranolazine [Ranolazine ER] 500 mg PO Q12HR Metoprolol Tartrate [Lopressor] 12.5 mg PO BID Levothyroxine Sodium [Synthroid] 100 mcg PO DAILY Memantine HCl [Memantine HCl ER] 7 mg PO DAILY QUEtiapine [SEROquel] 12.5 mg PO BID Discontinued Etanercept [Enbrel] 50 mg SQ WEEKLY Furosemide [Lasix] 20 mg PO DAILY Methylphenidate HCl [Ritalin] 10 mg PO BID Discharge Medication List predniSONE 5 mg PO DAILY 08/28/20 [History] Potassium Chloride [Klor-Con 10 ER] 10 meq PO DAILY 04/14/21 [History] Ranolazine [Ranolazine ER] 500 mg PO Q12HR 12/25/21 [History] Metoprolol Tartrate [Lopressor] 12.5 mg PO BID 11/26/22 [History] Levothyroxine Sodium [Synthroid] 100 mcg PO DAILY 06/18/24 [History] Memantine HCl [Memantine HCl ER] 7 mg PO DAILY 06/18/24 [History] QUEtiapine [SEROquel] 12.5 mg PO BID 06/18/24 [History] Acetaminophen Tab [Tylenol] 650 mg PO Q6HR PRN tab 06/26/24 [Rx] Ascorbic Acid [Vitamin C] 1,000 mg PO DAILY tab 06/26/24 [Rx] Aspirin 81 mg PO DAILY tab 06/26/24 [Rx] Atorvastatin [Lipitor] 40 mg PO HS tab 06/26/24 [Rx] FLUoxetine HCL [PROzac] 20 mg PO DAILY cap 06/26/24 [Rx] Isosorbide Mononitrate ER [Imdur] 30 mg PO DAILY tab 06/26/24 [Rx] Melatonin 2 mg PO HS tab 06/26/24 [Rx] Zinc Sulfate [Orazinc] 220 mg PO DAILY cap 06/26/24 [Rx] Follow up Appointment(s)/Referral(s): Issac Olivia MD [Primary Care Provider] - 1 Week Activity/Diet/Wound Care/Special Instructions: Need rehabilitation activity per detention rehab with gradual ambulation. Discharge Disposition: TRANSFER TO SNF/ECF Care Plan Goals (MU): Enbrel has been discontinued through hospitalization with the underlying immunocompromise and have a higher risk of infection and also she was illness was COVID. Enbrel will decrease immunity was her current status multiple medical problem. 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
--- NOTE | 2024-06-27 13:03 | P.PN ---
Subjective Progress Note Date: 06/26/24 Principal diagnosis: Reason for follow-up is COVID-19 infection Patient is a 89-year-old female with a past medical history significant for type 2 diabetes mellitus hide for your dementia has been brought to the hospital for evaluation of weakness patient did have a low-grade fever 100 F tested positive for COVID-19 however chest x-ray did not show acute infiltrate. On today's evaluation that is 06/26/2024, Patient is afebrile this morning patient has been complaining of more shortness of breath today patient denies having any chest pain no nausea no vomiting no abdominal pain or diarrhea. No new lab has been obtained today blood culture has been negative Objective - Vital Signs Vital signs: Vital Signs Temp 97.6 F 06/26/24 13:32 Pulse 69 06/26/24 13:32 Resp 17 06/26/24 13:32 BP 118/57 06/26/24 13:32 Pulse Ox 99 06/26/24 13:32 FiO2 Intake & Output 06/25/24 06/26/24 06/26/24 18:59 06:59 18:59 Intake Total 346 Output Total 380 Balance -380 346 Weight 64.5 kg Intake: IV 10 Invasive Line 4 10 Oral 336 Output: Urine 380 Other: Voiding Method Indwelling Catheter Indwelling Catheter Indwelling Catheter - Exam GENERAL DESCRIPTION: An elderly female lying in bed in no distress RESPIRATORY SYSTEM: Unlabored breathing , decreased breath sounds at bases HEART: S1 S2 regular rate and rhythm , ABDOMEN: Soft , no tenderness EXTREMITIES: Lower extremity with some laceration which are currently dressed no drainage - Labs CBC & Chem 7: 06/25/24 07:35 06/25/24 07:35 Labs: Abnormal Lab Results - Last 24 Hours (Table) 06/25/24 06/25/24 06/26/24 Range/Units 16:47 19:57 11:40 POC Glucose (mg/dL) 147 H 179 H 120 H (70-110) mg/dL Assessment and Plan (1) Leukocytosis Status: Acute Code(s): D72.829 - ELEVATED WHITE BLOOD CELL COUNT, UNSPECIFIED SNOMED Code(s): 382691484 (2) COVID-19 Status: Acute Code(s): U07.1 - COVID-19 SNOMED Code(s): 586706400 Plan: 1patient presented to hospital with generalized weakness in this patient who al so recently have a fall and tested positive for COVID-19 could be responsible for her symptoms however the patient is currently not hypoxic and no evidence of any acute infiltrate on chest x-ray treatment will be mostly supportive and do not qualify for remdesivir 2-patient also have mildly elevated white count on admission possibly reactive as no obvious focus of bacterial infection, she did have some swelling lower extremity with no cellulitis urine was negative and no evidence of any abdominal tenderness 3-patient white count has normalized, patient did have a normal procalcitonin of 0.11, blood culture has been negative so far 4-patient to continue current supportive treatment zinc ascorbic acid and no need for antibiotics on discharge Dictation was produced using [employer] dictation software. please excuse any grammatical, word or spelling errors. Time with Patient: Less than 30
== END 2024-06-26 15:51 | DRG 177 ==
LOC: EC 17:18 → 3SCARD 20:47 → 2SICU 06-19 23:12 → 3SCARD 06-20 19:25
PROVIDERS: ADMIT Internal Medicine; ATTEND Internal Medicine
PROC: 3E033XZ Introduction of Vasopressor into Peripheral Vein, Percutaneous Approach (ICD-10-PCS; principal; 2024-06-19)
PROC: 30233R1 Transfusion of Nonautologous Platelets into Peripheral Vein, Percutaneous Approach (ICD-10-PCS; 2024-06-20)
PROC: 30233N1 Transfusion of Nonautologous Red Blood Cells into Peripheral Vein, Percutaneous Approach (ICD-10-PCS; 2024-06-20)
PROC: 05HY33Z Insertion of Infusion Device into Upper Vein, Percutaneous Approach (ICD-10-PCS; 2024-06-20)
DX: U07.1 COVID-19 (principal); G93.41 Metabolic encephalopathy; I21.4 Non-ST elevation (NSTEMI) myocardial infarction; R57.1 Hypovolemic shock; D62 Acute posthemorrhagic anemia; F03.93 Unspecified dementia, unspecified severity, with mood disturbance; F03.94 Unspecified dementia, unspecified severity, with anxiety; D84.9 Immunodeficiency, unspecified; E87.1 Hypo-osmolality and hyponatremia; E87.20 Acidosis, unspecified; I13.0 Hypertensive heart and chronic kidney disease with heart failure and stage 1 through stage 4 chronic kidney disease, or unspecified chronic kidney disease; D69.6 Thrombocytopenia, unspecified; E77.8 Other disorders of glycoprotein metabolism; I27.20 Pulmonary hypertension, unspecified; E11.22 Type 2 diabetes mellitus with diabetic chronic kidney disease; E11.51 Type 2 diabetes mellitus with diabetic peripheral angiopathy without gangrene; I70.201 Unspecified atherosclerosis of native arteries of extremities, right leg; F31.9 Bipolar disorder, unspecified; M06.9 Rheumatoid arthritis, unspecified; I70.0 Atherosclerosis of aorta; N18.30 Chronic kidney disease, stage 3 unspecified; E03.9 Hypothyroidism, unspecified; I08.0 Rheumatic disorders of both mitral and aortic valves; Z66 Do not resuscitate; Z51.5 Encounter for palliative care; Z95.828 Presence of other vascular implants and grafts; I50.9 Heart failure, unspecified; R62.7 Adult failure to thrive; E83.51 Hypocalcemia; E88.09 Other disorders of plasma-protein metabolism, not elsewhere classified; S41.111A Laceration without foreign body of right upper arm, initial encounter; S40.021A Contusion of right upper arm, initial encounter; K21.9 Gastro-esophageal reflux disease without esophagitis; E78.5 Hyperlipidemia, unspecified; R15.9 Full incontinence of feces; R32 Unspecified urinary incontinence; E86.0 Dehydration; I25.10 Atherosclerotic heart disease of native coronary artery without angina pectoris; I49.3 Ventricular premature depolarization; K44.9 Diaphragmatic hernia without obstruction or gangrene; K57.30 Diverticulosis of large intestine without perforation or abscess without bleeding; K64.4 Residual hemorrhoidal skin tags; K64.8 Other hemorrhoids; M47.9 Spondylosis, unspecified; M15.9 Polyosteoarthritis, unspecified; N31.9 Neuromuscular dysfunction of bladder, unspecified; R33.9 Retention of urine, unspecified; R90.82 White matter disease, unspecified; R29.6 Repeated falls; Z79.890 Hormone replacement therapy; Z79.52 Long term (current) use of systemic steroids; Z79.899 Other long term (current) drug therapy; Z74.01 Bed confinement status; Z91.81 History of falling; Z87.891 Personal history of nicotine dependence; Z86.73 Personal history of transient ischemic attack (TIA), and cerebral infarction without residual deficits; Z85.3 Personal history of malignant neoplasm of breast; Z92.3 Personal history of irradiation; Y92.009 Unspecified place in unspecified non-institutional (private) residence as the place of occurrence of the external cause; W19.XXXA Unspecified fall, initial encounter; Z88.0 Allergy status to penicillin
CPT/HCPCS: 36410; 36415; 51702; 70450; 71046; 72170; 74021; 76937; 80048; 80053; 80076; 81003; 82140; 82150; 82330; 82550; 82607; 83036; 83540; 83550; 83605; 83615; 83690; 83735; 84100; 84134; 84145; 84443; 84484; 84630; 85025; 85027; 85045; 85610; 85652; 85730; 86140; 86850; 86900; 86901; 86920; 87040; 87636; 93005; 93306; 94760; 96365; 96366; 96367; 96376; 99285